=== PATIENT | male | born 1950 | race African-American/Black ===

== ENCOUNTER → 2016-03-24 | Outpatient (CLI) | payer OTHER ==
[~2016-03-24] MED LIST: AMLO-110 PO; AMOX875T PO; ASPI81TA28 PO; ATOR-22 PO; BND25 PO; DULO60CA44 PO; GABA800T PO; GUAI1TAB27 PO; HYDR2.5L TOP; ISOS30TA3 PO; LACT10SO30 PO; LEVO175T3 PO; MIRT30TA2 PO; MOML PO; MTH10 PO; PRLSR20 PO; TAMS0.4C38 PO; TOPI25TA99 PO
[2016-03-24 12:44] LABS: HEMATOCRIT 34.6 % (42-52); MEAN CELL VOLUME 92.5 fL (80-100); MEAN CORPUSCULAR HGB CONC 33.5 g/dl (32-36); MEAN PLATELET VOLUME 12.4 fL (7.4-10.4); PLATELET COUNT 302 K/uL (130-400); RED BLOOD COUNT 3.74 M/uL (4.7-6.1); WHITE BLOOD COUNT 10.47 K/uL (4.8-10.8)
== END | disposition home or self-care (01) ==
LOC: C.LABSPEC 11:49
PROVIDERS: ATTEND Family Medicine
DX: K92.2 Gastrointestinal hemorrhage, unspecified (principal)

== ENCOUNTER 2016-05-09 05:47 | Day surgery (SDC) | payer OTHER ==
[2016-05-02 14:27] VITALS: BMI 23.0; BMI 29.0
[~2016-05-09] VITALS: Ht 177.8 cm; Wt 91.8 kg
[~2016-05-09 05:47] MED LIST changes: -AMLO-110 PO; -LACT10SO30 PO; -MOML PO; -TOPI25TA99 PO
[2016-05-09] MEDS ORDERED: LACTATED RINGER'S 1000ML 1,000 ML IV SCH ×2 (06:00→08:54)
--- NOTE | 2016-05-09 06:13 | History & Physical Bridge Note ---
H&P Re-Evaluation Bridge Note: I have examined the patient, reviewed the History & Physical and in the interval since the performance of the History & Physical I have noted the following changes of clinical significance: No changes noted h and p up to date
[2016-05-09] MEDS ORDERED: LACT10SO30 PO (06:26)
[2016-05-09] MEDS ORDERED: MOML PO (06:26)
[2016-05-09 06:28] VITALS: BP 149/85; PULSE 71; TEMP 37.1; O2SAT 92; Ht 177.8 cm; Wt 91.8 kg
[2016-05-09] MEDS ORDERED: PROPOFOL IV EMULSION 10 MG/ML 20 ML VIAL IV ONE (06:44)
[2016-05-09] MEDS ORDERED: LIDOCAINE HCL 2% 2 ML VIAL (20MG/ML) ONE ×2 (06:44→08:47)
[2016-05-09] MEDS ORDERED: FENTANYL CITRATE INJ 50 MCG/1 ML 2 ML VIAL ONE (06:44)
[2016-05-09] MEDS ORDERED: MIDAZOLAM HCL 1 MG/ML 2ML VIAL ONE (06:44)
[2016-05-09] MEDS ORDERED: BACITRACIN 50000 UNIT VIAL ONE (06:53)
[2016-05-09] MEDS ORDERED: LIDOCAINE HCL 1% 20 ML VIAL ONE (06:53)
--- NOTE | 2016-05-09 07:41 | Discharge Instructions ---
Discharge Instructions Visit Reason for Visit: Colon Cancer Discharge Discharge Diagnosis / Problem: A-port placement Activity Recommendations Activity Limitations: as noted below Exercise/Sports Limitations: gradually increase as tolerated Shower/Bathe: tomorrow Anesthesia . Post Anesthesia Instructions: If you have had General Anesthesia or IV Sedation: * Do not drive today. * Resume driving when surgeon permits. * Do not make important decisions or sign legal documents today. * Call surgeon for: 1. Temperature elevations greater than 101 degrees F. 2. Uncontrollable pain. 3. Excessive bleeding. 4. Persistent nausea and vomiting. 5. Medication intolerance (nausea, vomiting or rash). * For nausea and vomiting use only clear liquids such as: tea, soda, bouillon until nausea subsides, then gradually increase diet as tolerated. * If you have any concerns or questions, call your surgeon's office. If physician is unavailable and it is an emergency, call 911 or go to the nearest emergency room. . Instructions / Follow-Up Instructions / Follow-Up Dr. Silverio's office as needed for any concerns about incision Diet Recommendations Recommended Home Diet: no limitations Pending Studies Studies pending at discharge: no Medical Emergencies . Who to Call and When: Medical Emergencies: If at any time you feel your situation is an emergency, please call 911 immediately. . Non-Emergent Contact Non-Emergency issues call your: Surgeon Call Non-Emergent contact if: you have a fever, temperature is above 101.5, wound has increased redness . . "Provider Documentation" section prepared by Carlos Santos.
[2016-05-09] MEDS ORDERED: CEFAZOLIN SOD 1 GM VIAL ONE (08:47)
[2016-05-09] MEDS ORDERED: MoRPHine SULFATE 2 MG/ML CARP IV PRN (09:00)
[2016-05-09] MEDS ORDERED: ONDANSETRON INJ 2 MG/ML 2 ML VIAL IV PRN ×2 (09:00→09:45)
[2016-05-09] MEDS ORDERED: HYDROCODONE/ACETAMOPHEN 5/325MG TAB PO PRN (09:00)
--- NOTE | 2016-05-09 09:39 | [facility] Post Operative Brief Note ---
Immediate Operative Summary Operative Date May 09, 2016. Pre-Operative Diagnosis Colon cancer Post-Operative Diagnosis Same Procedure(s) Performed Insertion infusaport right internal jugular(MRI compatible) Surgeon Dr Silverio [employer] Surgeon(s) 0 Estimated Blood Loss 15 ml Findings as preop Specimens none Anesthesia 1%xyl(8cc) and iv sedation
[2016-05-09] MEDS ORDERED: PROMETHAZINE HCL INJ 12.5 MG in SODIUM CHLORIDE 0.9% 50ML 50 ML IV PRN (09:45)
[2016-05-09] MEDS ORDERED: ATROPINE SULFATE 0.1 MG/ML 5ML SYR IV PRN (09:45)
[2016-05-09] MEDS ORDERED: FLUMAZENIL 0.1 MG/1 ML 10 ML VIAL IV PRN (09:45)
[2016-05-09] MEDS ORDERED: FENTANYL CITRATE INJ 50 MCG/1 ML 2 ML VIAL IV PRN (09:45)
[2016-05-09] MEDS ORDERED: EpHEDrine SULFATE INJ 50 MG/ML AMP IV PRN (09:45)
[2016-05-09] MEDS ORDERED: LABETALOL HCL IV 5 MG/ML 20ML IV PRN (09:45)
[2016-05-09] MEDS ORDERED: NALOXONE HCL 0.4 MG/1 ML VIAL/CARP IV PRN (09:45)
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
--- NOTE | 2016-05-09 10:09 | Anesthesiology Progress Note ---
Anesthesia Post Op Note Date & Time May 09, 2016 at 10:09 Vital Signs Pain Intensity: 5.0 Vital Signs Past 12 Hours Date Time Temp Pulse Resp B/P Pulse Ox O2 Delivery O2 Flow Rate FiO2 05/09/16 10:00 66 28 132/99 95 Mask 5 05/09/16 09:50 67 11 122/83 99 Mask 5 05/09/16 09:43 36.2 69 16 125/89 100 Mask 5 05/09/16 06:28 37.1 71 18 149/85 92 Room Air Notes Mental Status: alert / awake / arousable, participated in evaluation Pt Amnestic to Procedure: Yes Nausea / Vomiting: adequately controlled Pain: adequately controlled Airway Patency, RR, SpO2: stable & adequate BP & HR: stable & adequate Hydration State: stable & adequate Anesthetic Complications: no major complications apparent
[2016-05-09 10:35] VITALS: BP 133/93; PULSE 66; TEMP 36.5; O2SAT 93
[2016-05-09 11:05] VITALS: BP 156/92; PULSE 74; TEMP 36.2; O2SAT 94
--- NOTE | 2016-05-09 11:15 | OPERATIVE REPORT ---
DATE OF OPERATION: 05/09/2016 SURGEON: Dr. Silverio. PREOPERATIVE DIAGNOSIS: Colon cancer, need for chemotherapy. POSTOPERATIVE DIAGNOSIS: Same. PROCEDURE: MRI compatible port placement, left internal jugular. SUMMARY: The patient was brought into the operating room theatre. Left neck area and left chest were prepped with Betadine scrub solution and properly draped. The patient had a tattoo in the left anterior chest wall. We tried to stay away from it. We had some room underneath the clavicle to establish access of the vein and also place a port away from the tattoo. At this point, the patient was placed in Trendelenburg position and a roll placed underneath the shoulders. We tried to access the subclavian vein x2 without any success. Given the history of lymphomas and also previous use of drugs, I suspect that it may be sclerosed. Therefore, I went to the internal jugular. More local was used between the 2 heads of the sternocleidoid. We were able to access the internal jugular vein on the left without any difficulty, fluoroscopic positioning a guidewire in superior vena cava. After this had been performed, we made a counter incision probably an inch below this insertion site of the subclavian area away from the tattoo. Local anesthetic was used, deepened through subcutaneous tissue. We denuded the fat in the inferior area that created a pocket for the reservoir. Some bleeding was cauterized. At this point, I placed the tunneler from the internal jugular area access site to the port site, where the reservoir had been made after we enlarged the skin incision in the internal jugular. The trocar was positioned. Then, we placed the catheter to be ready to access into the 7-Tajik dilator. We positioned the dilator without any difficulty. Although, we met some little resistance as it went underneath the clavicle. As it had been performed, we then tried passing the catheter into the peel-away sheath then we were met with resistance. It seemed like there was some blockage almost shelter into the catheter into the 7-Tajik introducer. After multiple maneuvers re-applying guidewires and placing dilators under direct visualization, we were able then to peel away the sheath after we had the catheter in about 10 cm right at the skin edge almost and fluoroscopically, it went in without any problem superior vena cava. The peel-away sheath was removed. We then cut the catheter appropriately after it was in the superior vena cava right atrial area to place a black bolster. We brought the reservoir up in the field and connected and secured it in place with a black bolster. We aspirated and flushed initially. We visualized the system and the catheter appeared to be in the right atrium. We then placed in the previously made pocket, secured in place with the Prolene sutures. We then reimaged the system and the catheter appeared to be in the right atrium in good position. We closed the wound in multiple layers 2-0 and 3-0 Dexon and 4-0 Monocryl. Steri-Strips applied. Prior to leaving the room, we accessed the catheter percutaneously without any difficulty and flushed quite easily. Estimated blood loss for all this maneuver approximately 15 mL. I attest to the content of the Intraoperative Record and any orders documented therein. Any exceptio ns are noted below.
== END 2016-05-09 11:59 ==
LOC: C.ACU 05:47
PROVIDERS: ATTEND Surgery
DX: C88.4 Extranodal marginal zone B-cell lymphoma of mucosa-associated lymphoid tissue [MALT-lymphoma] (principal); J45.909 Unspecified asthma, uncomplicated; J44.9 Chronic obstructive pulmonary disease, unspecified; I10 Essential (primary) hypertension; N18.9 Chronic kidney disease, unspecified; Z85.72 Personal history of non-Hodgkin lymphomas; Z90.89 Acquired absence of other organs; Z98.890 Other specified postprocedural states; Z90.5 Acquired absence of kidney; Z68.29 Body mass index [BMI] 29.0-29.9, adult; Z86.19 Personal history of other infectious and parasitic diseases

== ENCOUNTER 2017-04-18 09:56 | Inpatient (IN) | payer OTHER ==
[2017-04-18] VITALS (17 sets, daily range): BP systolic 92–190; BP diastolic 46–105; PULSE 72–126; TEMP 36.5–38.2; O2SAT 93–100; BMI 30.1
[~2017-04-18] VITALS: Ht 177.8 cm; Wt 98.8 kg
[~2017-04-18 09:56] MED LIST changes: +AMLO-110 PO; +ATRINS NEB; -BND25 PO; +CETI10TA84 PO; +CICL160A INTNAS; +DIPH25CA5 PO; +ETOMIDATE 2 MG/ML 20 ML VIAL IV ONE; +FENTANYL CITRATE INJ 50 MCG/1 ML 2 ML VIAL IV ONE; +FLUT1INH PO; +FLUT27.53 INTNAS; +FNTTP50 TD; +FOLI1TAB8 PO; -GUAI1TAB27 PO; +GUAI400T44 PO; +HYZ/50125 PO; +LACT10SO30 PO; +METH750T PO; +MOML PO; +ONDA4TAB46 PO; +OXYC-88 PO; +POTA10CA28 PO; +SODIUM CHLORIDE 0.9% 10ML FLUSH IV ONE; +SUCCINYLCHOLINE CHLORIDE 20 MG/ML 10 ML VIAL IV ONE; +SUCR1TAB29 PO; +TEST1INJ2 SQ; +VECURONIUM BROMIDE 10 MG VIAL IV ONE
[2017-04-18] MEDS ORDERED: ACETAMINOPHEN 500 MG TAB PO ONE (10:08)
[2017-04-18] MEDS ORDERED: ALBUT/IPRATROP 3MG/0.5MG NEB 3 ML VIAL INH STA (10:09)
[2017-04-18] MEDS ORDERED: ACETAMINOPHEN 500 MG TAB PO STA (10:09)
[2017-04-18] MEDS ORDERED: PIPERACILLIN/TAZOBACTAM 4.5 GM/100ML D5W IV STA (10:11)
[2017-04-18] MEDS ORDERED: SODIUM CHLORIDE 0.9% 1000ML 500 ML IV ONE (10:11)
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
[2017-04-18 11:14] LABS: HEMATOCRIT 21.6 % (42-52); HEMOGLOBIN 6.3 g/dL (14.0-18.0); MEAN CELL VOLUME 75.5 fL (80-100); MEAN CORPUSCULAR HGB CONC 29.2 g/dl (32-36); MEAN PLATELET VOLUME 9.6 fL (7.4-10.4); NUCLEATED RED BLOOD CELL ABS 0.18 K/uL (0-0); PLATELET COUNT 283 K/uL (130-400); RED CELL DISTRIBUTION WIDTH SD 55.1 fL (36.4-46.3); WHITE BLOOD COUNT 8.13 K/uL (4.8-10.8)
[2017-04-18 11:17] LABS: INR 1.2 (0.9-1.1); PTT PATIENT 24.6 SECONDS (21.0-31.0)
[2017-04-18 11:27] LABS: BASO % 0.2 %; BASO ABS # 0.02 K/uL (0-0.2); EOS % 0.9 %; EOS ABS # 0.07 K/uL (0-0.5); IG# 0.02 K/uL (0.00-0.02); LYMPH % 4.3 %; LYMPH ABS # 0.35 K/uL (1.2-3.4); MONO % 0.9 %; MONO ABS # 0.07 K/uL (0.11-0.59); NEUT % 93.5 %
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
[2017-04-18 11:34] LABS: ALBUMIN 1.5 gm/dl (3.4-5.0); ALKALINE PHOSPHATASE 134 U/L (45-117); ALT/SGPT 10 U/L (12-78); AST/SGOT 15 U/L (15-37); BLOOD UREA NITROGEN 10 mg/dl (7-18); CARBON DIOXIDE 21 mmol/L (21-32); CREATININE 0.65 mg/dl (0.60-1.40); GLUCOSE 48 mg/dl (70-99); POTASSIUM 2.6 mmol/L (3.5-5.1); SODIUM 147 mmol/L (136-145); TOTAL PROTEIN 5.5 gm/dl (6.4-8.2)
[2017-04-18] MEDS ORDERED: DEXTROSE 50% 50 ML SYR IV STA (11:36)
[2017-04-18] MEDS ORDERED: DEXTROSE 50% 50 ML SYR ONE (11:37)
[2017-04-18] MEDS ORDERED: POTASSIUM CHLORIDE 10 MEQ / 100ML WTR IV STA (11:39)
[2017-04-18] MEDS ORDERED: POTASSIUM CHLR 10MEQ / WTR IV SCH (11:39)
[2017-04-18] MEDS ORDERED: MAGNESIUM SULFATE 1GM / D5W 1 GM BAG IV STA (11:39)
[2017-04-18] MEDS ORDERED: SODIUM CHLORIDE 0.9% 500ML 500 ML IV STA ×2 (11:42→12:26)
[2017-04-18 11:45] LABS: INFLUENZA B ANTIGEN Neg for Influ B (NEG)
[2017-04-18] MEDS ORDERED: PANTOprazole INJ 80 MG in DEXTROSE 5% 100ML IV ONE (12:00)
[2017-04-18] MEDS ORDERED: VANCOMYCIN CONSULT ACTIVE PRN (12:00)
[2017-04-18] MEDS ORDERED: ACYCLOVIR SOD INJ 800 MG in DEXTROSE 5% 250ML 250 ML IV STA (12:01)
[2017-04-18] MEDS ORDERED: NALOXONE HCL 0.4 MG/1 ML VIAL/CARP ONE ×3 (12:15→12:47)
[2017-04-18] MEDS ORDERED: VANCOMYCIN IV 2,000 MG in SODIUM CHLORIDE 0.9% 500ML 500 ML IV ONE (12:15)
[2017-04-18] MEDS ORDERED: NALOXONE HCL INJ 0.4 MG/1 ML VIAL/CARP IV STA (12:15)
[2017-04-18] MEDS ORDERED: ACYCLOVIR CONSULT ACTIVE PRN (12:30)
[2017-04-18] MEDS ORDERED: PIPERACILL/TAZOBAC CONSULT ACTIVE PRN ×2 (12:30→15:30)
[2017-04-18] MEDS ORDERED: ICU PROTOCOL FOR HYPERGLYCEMIA PRN (12:30)
[2017-04-18] MEDS ORDERED: OPTIRAY 320 IV PRN (13:00)
--- NOTE | 2017-04-18 13:22 | DIAGNOSTIC IMAGING REPORT ---
CT SCAN OF THE BRAIN WITHOUT IV CONTRAST CLINICAL HISTORY: Change in mental status. COMPARISON STUDY: No priors. TECHNIQUE: Unenhanced axial CT scan of the brain is performed from the vertex to the skull base. A dose lowering technique was utilized adhering to the principles of ALARA. The patient was scanned 4 times in an effort to improve image quality. The examination is severely compromised by motion artifact. FINDINGS: Brain parenchyma: There is mild periventricular microangiopathic disease. There is no hemorrhage, mass effect, or evidence of acute territorial ischemia by CT criteria. Nice-white matter is preserved. No extra-axial fluid collection is seen. Ventricles, sulci, cisterns: Normal in configuration. Intracranial vasculature: The visualized intracranial vasculature at the skull base is normal in appearance. Calvarium: Unremarkable. Sinuses and mastoids: There is evidence of previous paranasal sinus surgery. Moderate mucosal thickening is seen in the right maxillary antrum in the right sphenoid sinus. Mild mucosal thickening is seen within the right frontal sinus, ethmoid sinuses, and the left sphenoid sinuses. The mastoid air cells are well pneumatized. Orbits: The bony orbits are grossly intact. IMPRESSION: 1. No acute intracranial abnormality is identified noting a significantly motion compromised examination. 2. Paranasal sinus disease as above. Electronically signed by: Guevara Bryson M.D. 04/18/2017 1:21 PM Dictated Date/Time: 04/18/2017 1:18 PM
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
--- NOTE | 2017-04-18 13:35 | DIAGNOSTIC IMAGING REPORT ---
CT SCAN OF THE ABDOMEN AND PELVIS WITH IV CONTRAST CLINICAL HISTORY: Generalized abdominal pain. COMPARISON STUDY: No priors. TECHNIQUE: Following the IV administration of 118 cc of Optiray 320, CT scan of the abdomen and pelvis is performed from the lung bases to the proximal femora. Images are reviewed in the axial, sagittal, and coronal planes. IV contrast was administered without complication. A dose lowering technique was utilized adhering to the principles of ALARA. The examination is significantly degraded by motion artifact, as well as by streak artifact from the patient's arms which could not be elevated above the abdomen. FINDINGS: Lung bases: The heart is normal in size and without pericardial effusion. Small metallic foreign bodies are identified involving the heart. Emphysema is suspected. Airspace consolidation is present at the right lung base. A fat-containing Bochdalek hernia seen at the left lung base. Trace pleural effusions are suspected. There is a small to moderate hiatal hernia. Esophageal varices are identified. Liver: Evaluation of the liver is significantly by streak and motion artifact. The contrast-enhanced liver is grossly normal in size, contour, and attenuation. There is no intrahepatic biliary ductal dilatation. The hepatic veins and portal veins are patent. Gallbladder: Unremarkable. Spleen: A normal spleen is not identified. A 2.5 cm soft tissue nodule in the left upper quadrant image #141 likely represents a splenule. Additional splenules are suggested throughout the mesentery. Pancreas: Grossly unremarkable. Adrenal glands: Unremarkable. Kidneys: The contrast enhanced kidneys demonstrate mild cortical atrophy and are without hydronephrosis. A 2.7 cm cyst is identified in the interpolar right kidney. Metallic foreign bodies are noted in the region of the left splenic hilum. There is diminished perfusion suggested involving the upper pole of the left kidney. Abdominal vasculature: The abdominal aorta is normal in course and caliber noting mild to moderate atherosclerotic calcification. Bowel: There is moderate colonic fecal retention. No bowel obstruction is identified. A metallic density is suggested in the distal stomach on image #142. The appendix is not identified. Peritoneum: There is no intraperitoneal free air or abdominal ascites. Lymphadenopathy: None. Pelvic viscera: The bladder, prostate, and seminal vesicles are grossly normal as visualized. Skeletal structures: Degenerative change and mild scoliosis are noted throughout the imaged spine. No lytic or blastic lesions are seen. Soft tissues: Numerous metallic foreign bodies are present within the lower chest and upper abdominal wall. IMPRESSION: 1. Significantly streak and motion compromised examination. This degrades diagnostic utility. 2. A normal spleen is not identified. Numerous splenules are suggested in the left upper quadrant and throughout the abdomen. 3. There is diminished perfusion suggested involving the upper pole of the right kidney. This may artifactual. Correlation with clinical findings and urinalysis will be required. Consider follow-up with a renal ultrasound for further assessment. 4. Numerous metallic foreign bodies are present within the lower chest and upper abdomen. 5. Airspace consolidation is suggested at the right lung base. Correlate clinically for evidence of pneumonia. 6. Small to moderate hiatal hernia. Esophageal varices are noted. 7. Moderate constipation. No bowel obstruction is seen. 8. Additional findings as above. Electronically signed by: Guevara Bryson M.D. 04/18/2017 1:34 PM Dictated Date/Time: 04/18/2017 1:26 PM
[2017-04-18] MEDS ORDERED: NURSING VERBAL MED ORDER ONE ×2 (13:45→15:30)
[2017-04-18] MEDS ORDERED: NALOXONE HCL INJ 5 MG in SODIUM CHLORIDE 0.9% 100ML 100 ML IV SCH (13:51)
[2017-04-18] MEDS ORDERED: NALOXONE HCL 0.4 MG/1 ML VIAL/CARP IV ONE (13:55)
[2017-04-18] MEDS ORDERED: RAPID SEQUENCE INDUCTION BAG ONE ×2 (14:11→14:51)
[2017-04-18] MEDS: POTASSIUM CHLR 10 MEQ / WTR 10 MEQ in PREMIXED WATER 100 ML IV SCH ×4 (14:27→18:58)
[2017-04-18] MEDS ORDERED: OCTREOTIDE IV BOLUS & DRIP IV STA (14:35)
[2017-04-18] MEDS ORDERED: SUCCINYLCHOLINE CHLORIDE 20 MG/ML 10 ML VIAL IV STA (14:57)
[2017-04-18 14:59] LABS: INFLUENZA A PCR Neg for Influ A (NEG); INFLUENZA B PCR Neg for Influ B (NEG)
[2017-04-18] MEDS ORDERED: ETOMIDATE 2 MG/ML 20 ML VIAL IV ONE (15:00)
[2017-04-18] MEDS ORDERED: MIDAZOLAM 125MG/250ML D5W IV ONE (15:06)
[2017-04-18] MEDS ORDERED: D5W AND NSS 1,000 ML IV SCH (15:15)
--- NOTE | 2017-04-18 15:22 | History and Physical ---
History & Physical Date & Time of Service: Apr 18, 2017 ~ 12:00 Chief Complaint: Fever, Shortness of Breath Primary Care Physician: Nemo SANCHEZ History of Present Illness 67 year old male who was sent from [facility] after developing chills, fever, and shortness of breath. History is limited from patient due to his mental status. 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 Details are unknown. Apparently patient has been having a suspected slow GI bleed and down trending hemoglobins. He was scheduled for an outpatient blood transfusion today. Patient was transferred to the ED after developing fever, chills, and shortness of breath. He was found to be hypoxic, tachycardic, and hypotensive. His mental status also deteriorated and Narcan was given which briefly improved his mental status. CXR shows a multifocal pneumonia. Labs show anemia, hypoglycemia, and hypokalemia. Vitals improved with IVF and Bipap. 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 (7) GERD (gastroesophageal reflux disease) Status: Chronic (8) HLD (hyperlipidemia) Status: Chronic (9) HTN (hypertension) Status: Chronic (10) Hypothyroidism Status: Chronic (11) Malignant neoplasm of kidney Status: Chronic (12) Neuropathy Status: Chronic (13) PVD (peripheral vascular disease) Status: Chronic Family History unobtainable Social History Smoking Status: Unknown if Ever Smoked Alcohol Use: none Allergies Coded Allergies: YONNY Inhibitors (Verified Allergy, Intermediate, LIPS SWELL, 04/18/17) LISINIPRIL Ciprofloxacin (Verified Allergy, Mild, PER RECORD, 04/18/17) Home Medications Scheduled Amlodipine (Norvasc), 5 MG PO DAILY Aspirin (Aspirin Ec), 81 MG PO QAM Atorvastatin (Lipitor), 20 MG PO HS Cetirizine (Zyrtec), 10 MG PO DAILY Ciclesonide (Alvesco), 1 INHALER INTNAS DAILY Diphenhydramine Hcl (Benadryl), 25 MG PO HS Duloxetine Hcl (Cymbalta), 60 MG PO QAM Fentanyl (Duragesic), 100 MCG TD CQ72HR Fentanyl (Duragesic), 50 MCG TD CQ72HR Fluticasone Furoate (Flonase Sensimist), 2 SPRAYS INTNAS DAILY Fluticasone Furoate-Vilanterol (Breo Ellipta), 1 INHA PO DAILY Folic Acid (Folvite), 1 TAB PO DAILY Gabapentin (Neurontin), 800 MG PO BID Guaifenesin (Guaifenesin), 400 MG PO TID Hctz/Losartan (Hyzaar 12.5MG/50MG), 1 TAB PO DAILY Hctz/Losartan (Hyzaar 12.5MG/50MG), 1 TAB PO DAILY Ipratropium Calipatria (Ipratropium Calipatria), 1 VIAL NEB QID Isosorbide Mononitrate Ext Rel (Imdur Ext Rel), 3 TAB PO QAM Levothyroxine Sodium (Levothyroxine Sodium), 1 TAB PO QAM Methocarbamol (Robaxin), 1 TAB PO BID Mirtazapine Soltab (Remeron Soltab), 30 MG PO HS Omeprazole (Prilosec), 40 MG PO QAM Potassium Chloride (Micro-K Ext Rel), 10 MEQ PO DAILY Tamsulosin Hcl (Flomax), 0.4 MG PO HS Testosterone Cypionate (Testosterone Cypionate), 1 ML SQ DIRECTED Scheduled PRN Ondansetron Hcl (Zofran), 4 MG PO DIRECTED PRN for Nausea Oxycodone/Acetaminophen 10MG/325MG (Oxycodone/Acetaminophen 10MG/325MG), 1 TAB PO TID PRN for Pain Miscellaneous Medications Sucralfate (Carafate), 1 TAB PO Review of Systems unobtainable due to patient's mental status Physical Exam Vital Signs Date Time Temp Pulse Resp B/P (MAP) Pulse Ox O2 Delivery O2 Flow Rate FiO2 04/18/17 12:30 98 25 112/72 100 04/18/17 12:20 105 18 84/57 100 BiPAP 40 04/18/17 12:16 84/66 04/18/17 12:11 102 13 90 04/18/17 12:03 87/50 04/18/17 12:00 100 BiPAP 15.0 40 04/18/17 12:00 82/57 04/18/17 11:56 111 19 93 04/18/17 11:41 107 17 95 04/18/17 11:35 36.8 04/18/17 11:32 96/52 04/18/17 11:30 87/51 04/18/17 11:26 112 11 98 04/18/17 11:11 119 17 96 04/18/17 11:00 95/62 04/18/17 10:56 121 22 97 04/18/17 10:41 123 19 93 04/18/17 10:30 109/75 04/18/17 10:29 122 94 40 04/18/17 10:29 122 22 94 BiPAP/CPAP 40 04/18/17 10:26 124 23 95 04/18/17 10:24 142 04/18/17 10:15 95 Non-Rebreather 15.0 04/18/17 10:08 37.5 130 26 143/88 74 Room Air 04/18/17 10:04 143/88 General Appearance: WD/WN, + pertinent finding (on Bipap, minimally responsive) Eyes: + pertinent finding (pin point pupils) ENT: + pertinent finding (dry mucous membranes) Neck: supple, no JVD, trachea midline Respiratory/Chest: no respiratory distress, + decreased breath sounds, + pertinent finding (on Bipap) Cardiovascular: no edema, normal peripheral pulses, + tachycardia (regular rhythm) Abdomen/GI: normal bowel sounds, non tender, soft, no organomegaly Extremities/Musculoskelatal: normal inspection, no calf tenderness, normal capillary refill Neurologic/Psych: + pertinent finding (minimally responsive to loud verbal and tactile stimuli) Skin: normal color, warm/dry Diagnostics Laboratory Results Results Past 24 Hours Test 04/18/17 10:50 04/18/17 10:57 04/18/17 12:24 04/18/17 13:20 Range/Units White Blood Count 8.13 4.8-10.8 K/uL Red Blood Count 2.86 4.7-6.1 M/uL Hemoglobin 6.3 14.0-18.0 g/dL Hematocrit 21.6 42-52 % Mean Corpuscular Volume 75.5 80-100 fL Mean Corpuscular Hemoglobin 22.0 25-34 pg Mean Corpuscular Hemoglobin Concent 29.2 32-36 g/dl Platelet Count 283 130-400 K/uL Mean Platelet Volume 9.6 7.4-10.4 fL Neutrophils (%) (Auto) 93.5 % Lymphocytes (%) (Auto) 4.3 % Monocytes (%) (Auto) 0.9 % Eosinophils (%) (Auto) 0.9 % Basophils (%) (Auto) 0.2 % Neutrophils # (Auto) 7.60 1.4-6.5 K/uL Lymphocytes # (Auto) 0.35 1.2-3.4 K/uL Monocytes # (Auto) 0.07 0.11-0.59 K/uL Eosinophils # (Auto) 0.07 0-0.5 K/uL Basophils # (Auto) 0.02 0-0.2 K/uL RDW Standard Deviation 55.1 36.4-46.3 fL RDW Coefficient of Variation 20.0 11.5-14.5 % Immature Granulocyte % (Auto) 0.2 % Immature Granulocyte # (Auto) 0.02 0.00-0.02 K/uL Nucleated RBC Absolute Count (auto) 0.18 0-0 K/uL Nucleated Red Blood Cells % 2.2 % Toxic Granulation 1+ Toxic Vacuolation 1+ Giant Platelets 2+ Hypochromasia PRESENT Anisocytosis PRESENT Microcytosis PRESENT Target Cells 1+ Prothrombin Time 12.2 9.0-12.0 SECONDS Prothromb Time International Ratio 1.2 0.9-1.1 Activated Partial Thromboplast Time 24.6 21.0-31.0 SECONDS Partial Thromboplastin Ratio 0.9 Sodium Level 147 136-145 mmol/L Potassium Level 2.6 3.5-5.1 mmol/L Chloride Level 118 98-107 mmol/L Carbon Dioxide Level 21 21-32 mmol/L Anion Gap 7.0 3-11 mmol/L Blood Urea Nitrogen 10 7-18 mg/dl Creatinine 0.65 0.60-1.40 mg/dl Est Creatinine Clear Calc Drug Dose 131.1 ml/min Estimated GFR () 118.3 Estimated GFR (Non- 102.1 BUN/Creatinine Ratio 14.7 10-20 Random Glucose 48 70-99 mg/dl Calcium Level 6.0 8.5-10.1 mg/dl Magnesium Level 1.4 1.8-2.4 mg/dl Total Bilirubin 0.4 0.2-1 mg/dl Aspartate Amino Transf (AST/SGOT) 15 15-37 U/L Alanine Aminotransferase (ALT/SGPT) 10 12-78 U/L Alkaline Phosphatase 134 45-117 U/L Troponin I < 0.015 0-0.045 ng/ml Total Protein 5.5 6.4-8.2 gm/dl Albumin 1.5 3.4-5.0 gm/dl Globulin 4.0 2.5-4.0 gm/dl Albumin/Globulin Ratio 0.4 0.9-2 Thyroid Stimulating Hormone (TSH) 0.605 0.300-4.500 uIu/ml Thyroxine (T4) 9.4 4.5-10.9 mcg/dl Random Cortisol 18.46 mcg/dl Influenza Type A Antigen Neg for Influ A NEG Influenza Type B Antigen Neg for Influ B NEG Bedside Lactic Acid Venous 1.84 0.90-1.70 mmol/L Arterial Blood pH 7.36 7.35-7.45 Arterial Blood Partial Pressure CO2 47 35-46 mmHg Arterial Blood Partial Pressure O2 175 80-95 mm/Hg Arterial Blood HCO3 26 19-24 mmol/L Arterial Blood Oxygen Saturation 96.0 90-95 % Arterial Blood Base Excess 0.2 -9-1.8 mEq/L Arterial Blood Gas Delivery 40% BIPAP Shan Test POS POS Bedside Glucose 61 70-99 mg/dl Microbiology Results 04/18/17 Blood Culture, Received Pending 04/18/17 Blood Culture, Received Pending Diagnostic Radiology CXR IMPRESSION: 1. Cardiomegaly 2. Diffuse elevation of the interstitium, and bibasilar opacities. Although interstitial edema and bibasilar atelectasis is favored, a multifocal pneumonia could appear similar. Clinical and radiographic follow-up is recommended CT HEAD IMPRESSION: 1. No acute intracranial abnormality is identified noting a significantly motion compromised examination. 2. Paranasal sinus disease as above. CT ABD/PELVIS IMPRESSION: 1. Significantly streak and motion compromised examination. This degrades diagnostic utility. 2. A normal spleen is not identified. Numerous splenules are suggested in the left upper quadrant and throughout the abdomen. 3. There is diminished perfusion suggested involving the upper pole of the right kidney. This may artifactual. Correlation with clinical findings and urinalysis will be required. Consider follow-up with a renal ultrasound for further assessment. 4. Numerous metallic foreign bodies are present within the lower chest and upper abdomen. 5. Airspace consolidation is suggested at the right lung base. Correlate clinically for evidence of pneumonia. 6. Small to moderate hiatal hernia. Esophageal varices are noted. 7. Moderate constipation. No bowel obstruction is seen. 8. Additional findings as above. CT CHEST IMPRESSION: 1. Dependent consolidation in the lungs could represent aspiration or atelectasis. The presence of coarse calcification dependently in the right lower lobe and the absence of significant volume loss favors aspiration, which may be chronic. 2. Motion artifact degrades evaluation. Impression Assessment and Plan ACUTE HYPOXIC RESPIRATORY FAILURE PNEUMONIA, POSSIBLE ASPIRATION SEPSIS ALTERED MENTAL STATUS - admit to ICU - management as per car customizer - broad spectrum antibiotics - rapid flu negative, will check PCR - BP improving after IVF - vega cultures - ? metabolic encephalopathy from sepsis vs. narcotic overdose from fentanyl patches ANEMIA - ? due to underlying lymphoma vs. GI bleed - noted esophageal varices on CT scan - transfuse PRBCs HYPOGLYCEMIA - improved with D50 - monitor closely HX MALT LYMPHOMA OF STOMACH, RENAL CARCINOMA - obtain outpatient records CAD - holding antihypertensives due to hypotension DVT PROPHYLAXIS - SCDs due to anemia / GI bleed DISPO - In my clinical judgment this beneficiary meets acute admission criteria, established by [facility], that includes being hospitalized through two midnights. ADDENDUM: This is a 67 year old male with a PMH of MALT lymphoma, renal cell carcinoma, asthma, HTN, hypothyroidism, BPH - [facility]. Was sent from the [facility] to the ER due to lethargy, fever, acute hypoxic respiratory failure with decreased O2 saturation. He presented to the ED and was very lethargic, altered mental status, and low O2 - was placed on bipap. Noted to have hypoglycemia and hypotension episodes in the ED. Labs were drawn and his Hgb was down to 6.3. He had fentanyl patches on his chest; Narcan was given in the ED and there was some improved mentation and response. Acute Hypoxic Respiratory Failure Plan is to send the patient to the ICU. Likely will need to be intubated. Possible bronchoscopy as per car customizer. Sepsis secondary to Multifocal, possible Aspiration, Pneumonia +fevers, +hypotension, +tachypnea will start triple antibiotics, Zosyn, Azithromycin, Vancomycin monitor blood pressure, monitor vitals should repeat CXR in 1-2 days IVFs (D5 + NS) Metabolic Encephalopathy possibly secondary to opioid overdose patient with Fentanyl patches and takes oxycodone for breakthrough was given Narcan with some response initially started on Narcan ggt now off of the drip Anemia possibly secondary to lymphoma/malignancy vs. acute GI bleed patient hypotensive, though that can be secondary to the infectious process as above CT of the abdomen suggests possible esophageal varices - plan for now is to start a PPI drip and an octreotide drip. GI consulted for further input. Hypoglycemia unsure of why patient is hypoglycemic? does not take any diabetic medications prior to arrival to the [facility], had good PO intake possibly related to lymphoma? either way, given D50 in the ED maintenance fluids with D5 and NS Hypokalemia/Hypomagnesemia replace K, given at least 40mEq of K riders monitor potassium replace Mg as well Advanced Directives Existing Living Will: No Existing Power of Field [employer] Farmworker: No VTE Prophylaxis VTE Risk Assessment Done? Y/N: Yes Risk Level: Moderate
[2017-04-18] MEDS ORDERED: OCTREOTIDE BOLUS FROM BAG IV ONE (15:30)
--- NOTE | 2017-04-18 15:37 | Progress Note ---
Progress Note Date of Service Apr 18, 2017. (Estela Garay CRNP) Progress Note GI note: Received consult from Dr. Calabrese for this pt, for reasons of anemia, esophageal varices, possible EGD evaluation. Chart reviewed. Pt is a 67 year old male inmate who was at [facility] getting blood transfusion for chronic anemia. He started to develop fever, chills, SOB, BP was low at 80s/60s, tachycardic w HR of 122, hypoxic to 70s% on RA. He has hx of MALT lymphoma of the stomach and renal carcinoma. Uses Fentanyl patch for chronic pain. He was sent to ED. Upon eval, labs showed Hgb of 6.3, it was 11 a year ago but I was told by report that Hgb runs in 8s. Records from long-term not obtained yet. No signs of active GI bleed including melena, hematemesis. K 2.6, Na 147, BS 48. He was given Narcan gtt, NS bolus, and started on BiPAP. BP and O2 level improved. He had CT abd/pelvis: 1. Significantly streak and motion compromised examination. This degrades diagnostic utility. 2. A normal spleen is not identified. Numerous splenules are suggested in the left upper quadrant and throughout the abdomen. 3. There is diminished perfusion suggested involving the upper pole of the right kidney. This may artifactual. Correlation with clinical findings and urinalysis will be required. Consider follow-up with a renal ultrasound for further assessment. 4. Numerous metallic foreign bodies are present within the lower chest and upper abdomen. 5. Airspace consolidation is suggested at the right lung base. Correlate clinically for evidence of pneumonia. 6. Small to moderate hiatal hernia. Esophageal varices are noted. 7. Moderate constipation. No bowel obstruction is seen. Chest CT showed dependent consolidation, favoring aspiration. I discussed the case with Dr. Godfrey and developed the following plans which were relayed to Dr. Calabrese: - Keep NPO - PPI bolus and gtt - OK to continue Octreotide bolus and gtt - Plan for EGD evaluation tomorrow - Recommend obtaining abdominal duplex to r/o splenic vein thrombosis which can cause varices development. - Pls obtain records from the long-term including previous labs for comparison and previous endoscopic evals records if available. (Estela Garay CRNP) I have seen and examined the patien ton 04/18 with JONATHAN Graf whose note reflects our findings and plan. (Sahra Godfrey, DO)
[2017-04-18] MEDS ORDERED: VECURONIUM BROMIDE 10 MG VIAL IV ONE (15:45)
[2017-04-18] MEDS ORDERED: FENTANYL CITRATE INJ 50 MCG/1 ML 2 ML VIAL IV ONE (15:45)
[2017-04-18] MEDS: OCTREOTIDE ACETATE INJ 500 MCG in NSS 100ML IV SCH (16:07)
[2017-04-18] MEDS: PANTOprazole INJ 40 MG in DEXTROSE 5% 100ML IV SCH ×2 (16:07→20:51)
--- NOTE | 2017-04-18 16:30 | DIAGNOSTIC IMAGING REPORT ---
SINGLE VIEW CHEST CLINICAL HISTORY: Respiratory failure. Intubation. FINDINGS: An AP, portable, semierect chest radiograph is compared to chest x-ray and chest CT performed earlier the same day 04/18/2017. The examination is significantly degraded by portable technique and patient rotation. An enteric tube has been placed. This projects below the diaphragm. An endotracheal tube has been placed. The tip projects above the thoracic inlet approximately 11 cm above the scott. A left internal jugular central venous infusion port is unchanged in position. A right PICC line is been placed. The tip projects over the right atrium. The heart is top normal for projection. There is atherosclerotic calcification of the thoracic aorta. Pulmonary vascular congestion is suspected. Emphysema and chronic interstitial thickening are similar to previous. Bibasilar consolidative change is identified. No large pleural effusion or pneumothorax is seen. The skeletal structures are osteopenic. The bony thorax is grossly intact. Numerous metallic foreign bodies project over the left lower chest. IMPRESSION: 1. An endotracheal tube has been placed. This projects above the thoracic inlet approximately 11 cm above the scott. 2. A right PICC line is been placed. The tip projects over the right atrium. 3. An enteric tube is been placed and extends below the diaphragm. 4. Bibasilar consolidation is observed. Correlate clinically for evidence of pneumonia/aspiration pneumonitis. 5. Numerous metallic foreign bodies project over the left lower chest. 6. Emphysema. 7. Suspect pulmonary vascular congestion. Clinical correlation will be required. Electronically signed by: Guevara Bryson M.D. 04/18/2017 4:28 PM Dictated Date/Time: 04/18/2017 4:25 PM
--- NOTE | 2017-04-18 16:33 | DIAGNOSTIC IMAGING REPORT ---
KUB CLINICAL HISTORY: Enteric tube placement. FINDINGS: An AP, portable, supine abdominal radiograph is correlated with abdominal CT performed the same day 04/18/2017. An enteric tube has been placed. The tip projects below the diaphragm over the mid stomach. There is no radiographic evidence of bowel obstruction. Suture material is noted in the abdominal midline. Numerous metallic foreign bodies project over the left upper quadrant lower chest. Mild consolidative change is suggested at the lung bases. IV catheters project over the right heart. The visualized bony structures are grossly intact. IMPRESSION: 1. An enteric tube has been placed. The tip projects below the diaphragm over the mid stomach. 2. There is no evidence of bowel obstruction. Electronically signed by: Guevara Bryson M.D. 04/18/2017 4:32 PM Dictated Date/Time: 04/18/2017 4:30 PM
[2017-04-18] MEDS: PIPERACILL/TAZOBAC IV 4.5 GM in DEXTROSE 5% 100ML IV SCH (16:48)
[2017-04-18] MEDS ORDERED: MIDAZOLAM 125MG/250ML D5W 250 ML IV PRN (19:02)
[2017-04-18] MEDS: AZITHROMYCIN 500 MG / D5W 250 ML IV SCH ×2 (20:51)
[2017-04-18] MEDS ORDERED: PANTOprazole INJ 40 MG in SYRINGE 0 ML IV SCH (21:00)
[2017-04-18] MEDS: DEXTROSE 5% IV SCH (21:55)
[2017-04-18] MEDS: ACYCLOVIR SOD IV SCH (21:55)
[2017-04-18 22:27] LABS: HEMATOCRIT 26.4 % (42-52); HEMOGLOBIN 7.7 g/dL (14.0-18.0)
[2017-04-18 22:57] LABS: HEMATOCRIT 27.2 % (42-52); RETIC COUNT % 1.7 % (0.5-2.0)
[2017-04-18 23:24] LABS: CALCIUM 7.3 mg/dl (8.5-10.1); CREATININE 1.09 mg/dl (0.60-1.40); PHOSPHORUS 2.5 mg/dl (2.5-4.9)
--- NOTE | 2017-04-18 23:27 | Procedure Note ---
Procedure Note Date of Service Apr 18, 2017. Procedure Note Procedure date: 04/18/2017 Procedure: fiberoptic bronchoscopy Pre-procedure Diagnosis: Respiratory failure, sepsis Post-procedure Diagnosis: same as above Prior to Procedure: Informed Consent: The risks, benefits, indications, potential complications, and alternatives were explained to the patient/family and informed consent obtained. Patient was unable to sign and verbal consent was obtained Attending Staff: Serena Holder DO Resident/APC: Not applicable Skin Prep: Not applicable Anesthesia: Patient was receiving continuous infusion of propofol for sedation to facilitate mechanical ventilation Indications: Skinny is a 67-year-old male with a history of cancer, acute blood loss anemia, febrile illness concerning for sepsis. The identity of the patient was confirmed and a bedside time out was performed. Description of Procedure: Fiberoptic bronchoscopy was performed via endotracheal tube. Bronchioalveolar lavage right middle lobe was performed. Findings included: Thin clear secretions, structural and dynamic changes consistent with COPD Complications: None Specimens: Bronchial washings sent for culture and Gram stain, cytology, fungal elements, and AFB stain and culture. Estimated blood loss: Zero
[2017-04-18] MEDS ORDERED: INSULIN IV INFUSION PROTOCOL STA (23:28)
[2017-04-18] MEDS ORDERED: INSULIN PROTOCOL GOAL RANGE ONE (23:30)
[2017-04-18] MEDS ORDERED: SEVERE STRESS LEVEL ONE (23:30)
--- NOTE | 2017-04-18 23:33 | Critical Care Consultation ---
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 Findings included: Thin clear secretions, structural and dynamic changes consistent with COPD * washings sent for culture, gram stain, cytology, fungal, and AFB stain and culture * Begin respiratory regimen via inhaler during intubation * Head of bed at 30* * AM CXR and ABG Neuro: * Pt sedated on Versed and Fentanyl * Currently RASS -4, titrate to goal RASS -2 * Altered mental status multifactorial, continue to work up * Possible Opioid overdose with fentanyl patches in place on arrival and known break through pain relief with Percocet * Head CT negative for acute process * Unlikely metabolic process given labs and abg. * Reassess mental status again once extubated * Holding home medications that could contribute to mental status changes * Remeron, Neurontin, Benadryl, etc CV: * Troponin negative on admission * EKG without signs of ischemia, pt denied chest pain to prior providers * NPO: Hold home medications * ASA, atorvastatin, Norvasc (borderline blood pressure), hctz/losartan, Imdur * While holding combination ARB/diuretic will hold K; monitor electrolytes * Blood pressures currently adequate, but borderline (95/58 Map 67) Monitor on telemetry Fluids/Renal: * D5NSS at 100; will convert to NSS at 100mL/hr secondary to elevated blood sugars > 300 * electrolyte disturbances * Hyponatremia, hypokalemia, hypomagnesemia * Trend and replete per protocol * Sanchez in place: adequat urine output though concentrated * U/A demonstrates UTI: See ID * Cr: 0.65 on arrival repeat 1.09 * monitor for JAMISON, Continue fluids as above ID: * Continue acyclovir, azithromycin, zosyn and vanco * Gram Negative Bacilli in 1/2 blood cultures * Repeat cultures 24 hours after current cultures * Bronchial Washings pending * UTI: culture pending * febrile at 04/18 @ 1200 * Without leukocytosis * Lactic acid 1.84; repeat with a.m. labs GI/Nutrition: * OG tube in place, NPO * GI following for chronic slow GI bleed * Continue Octreotide and protonix infusion * EGD planned tomorrow * trend H&H q 8h, transfuse if less than 7 * abnormal LFTs and coags * repeat lab in AM Heme: * Hemoglobin 6.3 on admission, Hemoccult positive * Trend q8h * 2u PRBCs transfuse 04/18, repeat H&H 8.0/27.2 * SCD for DVT prophylaxis: Chemical prophylaxis contraindicated in GI bleed Endocrine: * No diagnosis of DM, hypoglycemic on arrival, then hyperglycemic on D5NSS * Began insulin infusion per policy and converted fluids to NSS @ 100mL/hr * Know hypothyroidism, convert PO to IV * TSH and T4 WNL CCT: 60 Minutes; This time is exclusive of all separately billable procedures. Thank you for involving us in the care of this patient. Please refer to Dr. Darvin Holder's addendum for further recommendations. I have personally evaluated and examined this patient. I agree with assessment and plan of Ramírez Bolton PA-C. Patient was initially evaluated by me. At that time in the emergency department he had waxing and waning mental status. He did exhibits capacity when I explained the risks and benefits regarding central line, bronchoscopy, orotracheal intubation, blood transfusion, PICC line, arterial line. He was comfortable proceeding with all procedures with the exception of central line. I did explain the risks and of benefits of a central line over PICC line however the patient remained resolute. The patient was generally weak and attempted to sign the first consent form. He did not want to finish signing the other consent forms and verbal consent was obviously obtained, as well as witnessed. The patient's mental status continued to wane to a point that I felt it was safer to have the patient intubated. Please see the intubation note. I reviewed prior records from [facility] as well as a correctional institution. It is clear that he has had cancer however I cannot determine if he is undergoing active chemotherapy or immunotherapy at this time. I am concerned the patient may have sepsis in addition to acute blood loss anemia, variceal hemorrhage is included in the differential, we have consult to gastroenterology service. I have personally spent 45 minutes of critical care time in the direct management of this patient. This is a life/limb threatening event. This includes time spent evaluating patient, direct bedside care, chart review, placing orders, interpretation of diagnostic studies, discussion with consultants, patient, and/or family members regarding treatment decisions, as well as other required patient management activities. This time is exclusive of all separately billable procedures, and teaching time and separate from and in addition to any other critical care service time. Problem Qualifiers (1) Pneumonia: Laterality: bilateral
[2017-04-18] MEDS ORDERED: GLUCAGON FOR INJ 1 MG VIAL SQ PRN (23:45)
[2017-04-18] MEDS ORDERED: DEXTROSE 50% 50 ML SYR IV PRN (23:45)
[2017-04-18] MEDS ORDERED: INSULIN REGULAR 250 UNITS in SODIUM CHLORIDE 0.9% 250ML 250 ML IV SCH (23:45)
[2017-04-18] MEDS ORDERED: NovoLIN R BOLUS FROM BAG IV ONE (23:45)
[2017-04-18] MEDS ORDERED: GLUCOSE 40% GEL 15 GM TUBE PO PRN (23:45)
[2017-04-18] MEDS ORDERED: GLUCOSE 10 TABS/TUBE PO PRN (23:45)
[2017-04-19] VITALS (29 sets, daily range): BP systolic 95–159; BP diastolic 51–93; PULSE 63–122; TEMP 36.5–37.6; O2SAT 87–100; Ht 177.8 cm; Wt 98.8 kg
[2017-04-19] MEDS: PIPERACILL/TAZOBAC IV 4.5 GM in DEXTROSE 5% 100ML IV SCH ×4 (00:34→23:38)
[2017-04-19] MEDS: OCTREOTIDE ACETATE INJ 500 MCG in NSS 100ML IV SCH ×3 (00:34→23:38)
[2017-04-19 00:39] LABS: POTASSIUM 4.3 mmol/L (3.5-5.1)
--- NOTE | 2017-04-19 01:20 | Procedure Note ---
Procedure Note Date of Service 04/18/2017 Procedure Note Procedure Date: April 18, 2017 Procedure: Endotracheal intubation Pre-procedure Diagnosis: Hypoxic respiratory failure Post-procedure Diagnosis: same as above Prior to Procedure: Informed Consent: emergent , verbal informed consent had been obtained Attending Staff: Serena Holder DO Indications: Patient is a 67-year-old male with impending respiratory failure secondary to acute hypoxemia The identity of the patient was confirmed and a bedside time out was performed. Description of Procedure: Patient was evaluated and required intubation for impending respiratory failure. The patient was prepared in the usual fashion. A MAC 3 laryngoscope was used initially; however, I was not able to reach the posterior pharynx. I converted to a Mac 4 and was able to achieve a grade 3 view; however, there was significant thick tenacious oral secretions covering the glottic opening that required suctioning. I converted to a glide scope to attempt to achieve a better view. With a glide scope I was unable to visualize the glottic opening adequately and converted back to a Mac 4. Again a grade 3 view was obtained endotracheal tube was passed cuff inflated. 8.5 Fr endotrachial tube was placed to 24 cm at the teeth. The endotracheal tube was not noted to pass through the vocal cords. Chest rise was bilateral. Bilateral breath sounds were heard without air sounds in the abdomen. Mist was noted in the endotracheal tube. End-tidal CO2 measurement was positive. Chest x-ray shows proper endotracheal tube placement. Complications: Patient desaturated to the low 90s for approximately 2-3 minutes during the entire intubation process. Patient had extremely dry mucous membranes and there appeared to be a superficial split of the left lower lip. Bleeding was controlled with gentle pressure. Findings: not applicable Specimens: not applicable Estimated blood loss: Trace
[2017-04-19] MEDS ORDERED: IPRATROPIUM BROMIDE HFA INHALER INH ONE (01:56)
[2017-04-19] MEDS ORDERED: ALBUTEROL HFA 8 GM INHALER INH ONE (01:56)
[2017-04-19] MEDS: PANTOprazole INJ 40 MG in DEXTROSE 5% 100ML IV SCH ×5 (02:19→22:22)
[2017-04-19] MEDS ORDERED: NURSING VERBAL MED ORDER ONE ×2 (02:30→14:45)
[2017-04-19] MEDS ORDERED: VANCOMYCIN IV 1,500 MG in SODIUM CHLORIDE 0.9% 500ML 500 ML IV SCH ×2 (03:00→17:00)
[2017-04-19] MEDS ORDERED: SODIUM CHLORIDE 0.9% 1000ML 1,000 ML IV SCH (03:00)
[2017-04-19 06:02] LABS: INR 1.2 (0.9-1.1); PTT PATIENT 29.2 SECONDS (21.0-31.0)
[2017-04-19 06:13] LABS: HEMOGLOBIN 8.8 g/dL (14.0-18.0); MEAN CELL VOLUME 77.9 fL (80-100); MEAN CORPUSCULAR HEMOGLOBIN 22.9 pg (25-34); MEAN CORPUSCULAR HGB CONC 29.3 g/dl (32-36); MEAN PLATELET VOLUME 10.1 fL (7.4-10.4); NUCLEATED RED BLOOD CELL ABS 0.24 K/uL (0-0); PLATELET COUNT 319 K/uL (130-400); RED CELL DISTRIBUTION WIDTH CV 19.7 % (11.5-14.5); RED CELL DISTRIBUTION WIDTH SD 55.8 fL (36.4-46.3); WHITE BLOOD COUNT 32.28 K/uL (4.8-10.8)
[2017-04-19 06:22] LABS: ALBUMIN 1.8 gm/dl (3.4-5.0); CALCIUM 7.4 mg/dl (8.5-10.1); CREATININE 1.01 mg/dl (0.60-1.40); POTASSIUM 4.1 mmol/L (3.5-5.1)
[2017-04-19] MEDS: DEXTROSE 5% IV SCH ×3 (06:23→22:22)
[2017-04-19] MEDS: ACYCLOVIR SOD IV SCH ×3 (06:23→22:22)
[2017-04-19 06:27] LABS: PHOSPHORUS 2.6 mg/dl (2.5-4.9); TOTAL PROTEIN 7.3 gm/dl (6.4-8.2)
--- NOTE | 2017-04-19 06:38 | DIAGNOSTIC IMAGING REPORT ---
EXAMINATION: RENAL ULTRASOUND CLINICAL HISTORY: right upper pole lesion ABNORMAL CT SCAN COMPARISON STUDY: CT scan dated 04/18/2017 FINDINGS: The right kidney measures 13 cm. The left kidney measures 11.7 cm. There is no evidence of hydronephrosis. There is a 26 mm mid pole right renal cyst. There is a 3 cm soft tissue nodule located adjacent the left kidney. This could represent a splenule. There is a 15 mm lower pole left renal cyst. There is a Sanchez catheter present within the bladder. IMPRESSION : 1. Bilateral renal cysts 2. No evidence of hydronephrosis Electronically signed by: Hal Hernandez M.D. 04/19/2017 6:37 AM Dictated Date/Time: 04/19/2017 6:34 AM
--- NOTE | 2017-04-19 06:46 | DIAGNOSTIC IMAGING REPORT ---
VENOUS DOPPLER LWR EXT BILA CLINICAL HISTORY: 67 years-old Male presenting with hypoxia active cancer. TECHNIQUE: Real-time grayscale and color and spectral Doppler ultrasound imaging of the veins of the bilateral lower extremities was performed. Compression and augmentation were also utilized. COMPARISON: None. FINDINGS: Right: Common femoral vein: Patent. Greater saphenous vein: Patent. Deep femoral vein: Patent. Femoral vein: Patent. Popliteal vein: Patent. Calf veins: Limited visualization secondary to subcutaneous edema. Left: Common femoral vein: Patent. Greater saphenous vein: Patent. Deep femoral vein: Patent. Femoral vein: Patent. Popliteal vein: Patent. Calf veins: Limited visualization secondary to subcutaneous edema. Other: None. IMPRESSION: No evidence of deep venous thrombosis. Electronically signed by: Dada Rahman M.D. 04/19/2017 6:44 AM Dictated Date/Time: 04/19/2017 6:43 AM
[2017-04-19 06:59] LABS: BASO % 0.2 %; BASO ABS # 0.06 K/uL (0-0.2); EOS % 0.8 %; EOS ABS # 0.26 K/uL (0-0.5); IG# 0.16 K/uL (0.00-0.02); LYMPH % 10.3 %; LYMPH ABS # 3.33 K/uL (1.2-3.4); MONO % 12.7 %; NEUT % 75.5 %; NEUT ABS # 24.37 K/uL (1.4-6.5)
--- NOTE | 2017-04-19 07:29 | DIAGNOSTIC IMAGING REPORT ---
DUPLEX ABD/PELV/RETRO COMP CLINICAL HISTORY: 67 years-old Male presenting with eval for spenic vein thrombus. TECHNIQUE: Real-time grayscale and color and spectral Doppler ultrasound imaging of the mesenteric veins was performed with specific attention to the splenic vein. COMPARISON: CT from 04/18/2017. FINDINGS: Main portal vein: Patent with normal antegrade flow. Peak velocity approximately 15 cm/s. Splenic vein: Patent in the distal portion near the portal confluence. The proximal and midportion do not demonstrate color Doppler flow and may be occluded. Peak velocity in the patent portion approximately 20 cm/s. IMPRESSION: 1. Splenic vein near the portal confluence is patent. The proximal to midportion towards the splenic hilum is not clearly patent. However, the patient has a history of splenectomy, and these findings are not unexpected. Electronically signed by: Dada Rahman M.D. 04/19/2017 7:27 AM Dictated Date/Time: 04/19/2017 7:08 AM
[2017-04-19] MEDS ORDERED: INSULIN ASPART 100 UNITS/ML 3 ML PEN SC SCH (08:00)
[2017-04-19] MEDS ORDERED: IPRATROPIUM BROMIDE HFA INHALER INH SCH ×2 (09:00→20:00)
[2017-04-19] MEDS ORDERED: LEVOTHYROXINE SODIUM 20 MCG/1 ML IV SCH (09:00)
[2017-04-19] MEDS ORDERED: ALBUTEROL HFA 8 GM INHALER INH SCH ×2 (09:00→20:00)
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
[2017-04-19] MEDS: NORMOSOL R 1,000 ML IV SCH ×2 (09:11→20:26)
[2017-04-19] MEDS: LEVOTHYROXINE SODIUM IV SCH (09:28)
[2017-04-19] MEDS ORDERED: FENTANYL CITRATE INJ 50 MCG/1 ML 2 ML VIAL ONE (10:59)
[2017-04-19] MEDS: PROPOFOL IV EMULSION 10 MG/ML 100 ML VIAL IV PRN (11:20)
[2017-04-19] MEDS ORDERED: POTASSIUM CHLR 10MEQ / WTR IV SCH (11:39)
--- NOTE | 2017-04-19 11:59 | Pharmacy Progress Note ---
Pharmacy Abx Dose Short Note Date of Service Apr 19, 2017. Assessment & Plan Assessment 67 year old male receiving vancomycin,zosyn,acyclovir, and azithromycin empirically. The patient's respiratory status declined further yesterday and was subsequently intubated. Pertinent microbiologic results thus far include a positive MRSA nasal swab and gram negative bacilli growing in both the urine and 1/2 BC. Of note the patient's WBC drastically increased. Serum creatinine also bumped from 0.65 to 1.09 to 1.01 in ~24 hours. It is noted that there is some decrease in UOP today. Given the patient's clinical status and considering the multiple medications that may affect or are affected by renal function, I will continue to monitor antimicrobials closely and adjust as needed. I will also reduce the frequency at which the vancomycin is administered and check a level in the morning. Day # 2 of antimicrobial therapy. Plan Vancomycin * Change to 1500 mg IV every 14 hours (from 1500mg Q10h) * Goal trough level for : 15 to 20 mcg/mL * Trough or random level ordered for: 04/20/17 @0630 * Zosyn * Continue at 4.5mg q8h Acyclovir * Continue at 725 mg IV q8h (~10mg/kg based on IBW) Pharmacy will continue to follow and will adjust dose/frequency as necessary. Thank you.
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
[2017-04-19 12:47] LABS: HEMOGLOBIN 9.2 g/dL (14.0-18.0)
[2017-04-19] MEDS: FENTANYL 1250MCG/250ML NSS 250 ML IV PRN (13:09)
[2017-04-19] MEDS ORDERED: FENTANYL BOLUS FROM BAG IV ONE (14:00)
--- NOTE | 2017-04-19 15:20 | ECHOCARDIOGRAM REPORT ---
*NOTICE TO RECEIVING CONSTITUTION PARTY AGENCY This information is strictly Confidential and protected under [place] law. [place] law prohibits you from making any further disclosure of this information unless further disclosure is expressly permitted by the written consent of the person to whom it pertains or is authorized by law. A general authorization for the release of medical or other information is not sufficient for this purpose. Hospital accepts no responsibility if the information is made available to any other person, INCLUDING THE PATIENT. Interpretation Summary * Name: DHRUV ULRICH [id number] Study Date: 04/19/2017 12:01 PM BP: 104/64 mmHg * Patient Location: .MSICU\S\E103\S\1 HR: 69 * : 1950 (M/d/yyy) Gender: Male Height: 70 in * Age: 67 yrs Ethnicity: AA Weight: 217 lb * Ordering Physician: Guevara Anderson * Referring Physician: Self, Referred * Performed By: Jailene Lam RDCS * * Reason For Study: ARDS, Respiratory Failure * BSA: 2.2 m2 * -- Conclusions -- * 1. Normal LV size, borderline concentric LVH. * 2. Normal LV systolic function. LVEF 55-60%. Abnormal septal motion consistent with RV volume overload. * 3. Mildly dilated RV and RA. Normal RV function. * 4. Aortic valve sclerosis with discrete nodular thickening of the right coronary cusp. * 5. Mild pulmonary hypertension. Est PASP 40-45 mmHg. Dilated IVC. Est RA 15 mmHg. * 6. Trivial pericardial effusion. * 7. No prior studies for comparison. Procedure Details * A complete two-dimensional transthoracic echocardiogram was performed (2D, M-mode, Doppler and color flow Doppler). Left Ventricle * The left ventricle is grossly normal size. * There is borderline concentric left ventricular hypertrophy. * Ejection Fraction = 55-60%. * Paradoxical septal motion is consistent with right ventricular volume overload. Right Ventricle * The right ventricle is mildly dilated. * The right ventricular systolic function is normal as assessed by tricuspid annular plane systolic excursion (TAPSE) (normal >1.5 cm). Atria * The left atrial size is normal. * The right atrium is mildly dilated. * No ASD detected; PFO is not assessed. Mitral Valve * The mitral valve is grossly normal. * Mitral stenosis is absent. * There is trace mitral regurgitation. Tricuspid Valve * The tricuspid valve is not well visualized, but is grossly normal. * There is trace tricuspid regurgitation. * Right ventricular systolic pressure is elevated at 40-50mmHg. Aortic Valve * Aortic valve sclerosis mild, without significant aortic valvular stenosis. * There is discrete nodular thickening of the right coronary cusp. * The aortic valve is trileaflet. * No hemodynamically significant valvular aortic stenosis. * There is no significant aortic regurgitation. Pulmonic Valve * The pulmonary valve is inadequately visualized, but the Doppler data is adequate for interpretation. * Pulmonic stenosis is absent. * Trace pulmonic valvular regurgitation. Great Vessels * The aortic root and proximal ascending aorta are normal sized. Pericardium/Pleural * Trace pericardial effusion Great Vessels * Dilated inferior vena cava with reduced collapsability with sniff indicates an elevated right atrial pressure of 15 mmHg MMode 2D Measurements and Calculations IVSd 0.96 cm IVSs 1.3 cm LVIDd 5.7 cm LVIDs 3.7 cm LVPWd 1.1 cm LVPWs 1.7 cm IVS/LVPW 0.90 FS 35.5 % EDV(Teich) 162.7 ml ESV(Teich) 58.3 ml EF(Teich) 64.2 % EDV(cubed) 189.2 ml ESV(cubed) 50.8 ml EF(cubed) 73.1 % % IVS thick 32.6 % % LVPW thick 60.7 % LV mass(C)d 233.8 grams LV mass(C)dI 108.2 grams/m\S\2 LV mass(C)s 208.4 grams LV mass(C)sI 96.4 grams/m\S\2 SV(Teich) 104.4 ml SI(Teich) 48.3 ml/m\S\2 SV(cubed) 138.4 ml SI(cubed) 64.0 ml/m\S\2 Ao root diam 4.1 cm Ao root area 12.9 cm\S\2 ACS 2.2 cm LA dimension 4.1 cm LA/Ao 1.0 LVAd ap4 32.7 cm\S\2 LVLd ap4 8.6 cm EDV(MOD-sp4) 108.1 ml EDV(sp4-el) 106.0 ml LVAs ap4 18.6 cm\S\2 LVLs ap4 7.0 cm ESV(MOD-sp4) 42.5 ml ESV(sp4-el) 41.8 ml EF(MOD-sp4) 60.7 % EF(sp4-el) 60.6 % LVAd ap2 32.1 cm\S\2 LVLd ap2 8.9 cm EDV(MOD-sp2) 106.4 ml EDV(sp2-el) 98.5 ml LVAs ap2 19.3 cm\S\2 LVLs ap2 6.9 cm ESV(MOD-sp2) 47.1 ml ESV(sp2-el) 45.8 ml EF(MOD-sp2) 55.8 % EF(sp2-el) 53.6 % LVLd %diff 3.7 % EDV(MOD-bp) 108.4 ml LVLs %diff -1.52 % ESV(MOD-bp) 44.6 ml EF(MOD-bp) 58.8 % SV(MOD-sp4) 65.6 ml SI(MOD-sp4) 30.4 ml/m\S\2 SV(MOD-sp2) 59.4 ml SI(MOD-sp2) 27.5 ml/m\S\2 SV(MOD-bp) 63.7 ml SI(MOD-bp) 29.5 ml/m\S\2 SV(sp4-el) 64.2 ml SI(sp4-el) 29.7 ml/m\S\2 SV(sp2-el) 52.8 ml SI(sp2-el) 24.4 ml/m\S\2 Doppler Measurements and Calculations MV E max alexey 86.1 cm/sec MV A max alexey 75.9 cm/sec MV E/A 1.1 MV dec time 0.23 sec Ao V2 max 130.1 cm/sec Ao max PG 6.8 mmHg Ao max PG (full) 2.5 mmHg LV V1 max PG 4.3 mmHg LV V1 max 103.4 cm/sec PA V2 max 97.1 cm/sec PA max PG 3.8 mmHg PI max alexey 144.1 cm/sec PI max PG 8.3 mmHg PI dec slope 236.2 cm/sec\S\2 PI P1/2t 178.6 msec TR max alexey 255.2 cm/sec
--- NOTE | 2017-04-19 16:04 | Procedure Note ---
Procedure Note Date of Service Apr 19, 2017. Procedure Note Procedure Date: 04/19/2017 Procedure: Indirect laryngoscopy with endotracheal tube exchanger Pre-procedure Diagnosis: Migration of the endotracheal tube possible commercial drone pilot balloon failure Post-procedure Diagnosis: Migration of the endotracheal tube Prior to Procedure: Informed Consent: emergent Attending Staff: Serena Holder DO Indications: Patient is 67-year-old male who appears to have lost the integrity of his commercial drone pilot balloon and/or possibly had migration of the endotracheal tube out of the airway. The identity of the patient was confirmed and a bedside time out was performed. Description of Procedure: A XtremIO endotracheal tube exchanger was inserted into the endotracheal tube and advanced the patient did produce a small cough. Next the chloride scope was inserted into the oropharynx. Under indirect video visualization the old endotracheal tube was removed. The tube exchanger was visualized passing through the vocal cords. An 8.5 endotracheal tube was then inserted over the endotracheal tube and directly visualized passing through the vocal cords by the glidescope. Tube was secured at a distance of 27 cm to the teeth Complications: None Findings: not applicable Specimens: not applicable Estimated blood loss: Zero
--- NOTE | 2017-04-19 16:09 | Procedure Note ---
Procedure Note Date of Service Apr 19, 2017. Procedure Note Procedure date: 04/19/2017 Procedure: fiberoptic bronchoscopy Pre-procedure Diagnosis: Recent endotracheal tube exchange, confirmation of endotracheal tube positioning, possible mucous plugging Post-procedure Diagnosis: same as above Prior to Procedure: Informed Consent: The risks, benefits, indications, potential complications, and alternatives were explained to the patient/family and informed consent obtained. Attending Staff: Serena Holder DO Resident/APC: Not applicable Skin Prep: Not applicable Anesthesia: Intravenous Versed had been being administered for facilitation of mechanical ventilation Indications: Patient is a 67-year-old male who had migration of his endotracheal tube and required confirmation of the tubes exact location. Additionally the distance which the endotracheal tube required insertion did not appear to correlate with appropriate positioning. Nursing staff also reported suctioning thick secretions from the endotracheal tube. The identity of the patient was confirmed and a bedside time out was performed. Description of Procedure: Fiberoptic bronchoscopy was performed via endotracheal tube. Bronchioalveolar lavage was not performed. Findings included : Minimal clear secretions. The endotracheal tube terminated at 2 cm above the scott. Complications: None Specimens: None Estimated blood loss: Zero Findings: The endotracheal tube is appropriately positioned. Initial secretions from the endotracheal tube were likely from the endotracheal tube migrating and supraglottic secretions being suctioned. There was no mucopurulence noted in the airways
--- NOTE | 2017-04-19 16:16 | Procedure Note ---
Procedure Note Procedure Date Apr 19, 2017. Procedure Description Procedure Name: Left radial arterial line Procedure time out: side/site verified, patient ID confirmed, correct procedure Consent obtained: verbal Time of procedure: 11:30 Performed by: attending Indications: diagnostic Contraindications: none Description: Patient's wrist was prepped with chlorhexidine and draped in sterile fashion. 1 mL of 1% lidocaine with epinephrine was used to anesthetize the area. Of 20- gauge arrow catheter was inserted into the left radial artery under dynamic ultrasound guidance. The arterial line was secured with a commercial securement device sterile dressing was applied. Complications: none Patient tolerated procedure: well Post-procedure vital signs: reviewed and stable Comments: Critical Care Medicine Point of Care Bedside Ultrasound Procedure: Procedural Ultrasound Procedure Date: 04/19/2017 Indication: Left radial arterial line placement Attending: Serena Holder DO Artery visualized: Y Guidewire or Short Catheter seen in vein: Y Impression: Successful left radial artery cannulation Images obtained are saved for permanent record
[2017-04-19] MEDS ORDERED: ICU ELECTROLYTE REPLACEMENT PROTOCOL PRN (16:30)
--- NOTE | 2017-04-19 16:34 | Critical Care Progress Note ---
Critical Care Progress Note Date of Service Apr 19, 2017. ICU Day ICU Day Number: [address] Holder Subjective No overnight events, patient intubated and sedated Objective General - intubated and sedated Eyes - pupils pin point and unresponsive, no icterus, ENT - Mucosa moist, no lesions or candidiasis, ET tube in place Neck - Supple, trachea midline, no masses or lymphadenopathy, no JVD Lungs -coarse breath sounds bilaterally Heart - Reg rate and rhythm, No murmur, rubs, clicks, or gallops appreciated Abdomen -no organomegaly Extremities - No edema, pedal pulses intact Neuro - Rass -4 Assessment & Plan Neuro: * Pt sedated on Versed and Fentanyl * Titrate to goal RASS -2 * Altered mental status multifactorial * Head CT negative for acute process Resp: * Assist Control: 16/550/5/80% * Acute respiratory distress syndrome * P/F ratio 130 * Bronchial washings no growth to date * ARDSnet, high PEEP flow FiO2 table * AM CXR and ABG CV: * Echo report reviewed summary: EF 55-60%, aortic valve sclerosis with discrete nodular thickening of the right coronary cusp Fluids/Renal: * Discontinue dextrose-containing solutions convert to a normal sought 75 ML's per hour * Electrolytes improved * Sanchez in place: adequat urine output though concentrated * U/A: Gram-negative bacilli ID: * Continue acyclovir, azithromycin, zosyn and vanco * Gram Negative Bacilli in 1/2 blood cultures * Repeat cultures 24 hours after current cultures * Bronchial Washings pending * UTI: Gram-negative bacilli * WBC: 32,000 GI/Nutrition: * OG tube in place, NPO * GI D furring EGD today possibly tomorrow * Continue Octreotide and protonix infusion * EGD planned tomorrow * trend H&H q 8h, transfuse if less than 7 Heme: * Hemoglobin improved * 2u PRBCs transfuse 04/18, Endocrine: * Hypoglycemic episodes resolved, discontinued dextrose-containing solutions * Know hypothyroidism, convert PO to IV * TSH and T4 WNL I have personally spent 70 minutes of critical care time in the direct management of this patient. This is a life/limb threatening event. This includes time spent evaluating patient, direct bedside care, chart review, placing orders, interpretation of diagnostic studies, discussion with consultants, patient, and/or family members regarding treatment decisions, as well as other required patient management activities. This time is exclusive of all separately billable procedures, and teaching time and separate from and in addition to any other critical care service time. Data Medications: Current Inpatient Medications Medications (Trade) Dose Ordered Sig/Glenn Route Start Time Stop Time Status Last Admin Dose Admin Miscellaneous Information (Consult) 1 ea UD PRN N/A 04/18/17 12:00 05/18/17 11:59 Miscellaneous Information (Consult) 1 ea UD PRN N/A 04/18/17 12:30 05/18/17 12:29 Acyclovir Sodium (Consult) 1 ea UD PRN N/A 04/18/17 12:30 05/18/17 12:29 Miscellaneous Information (Icu Protocol For Hyperglycemia) 1 ea PRN PRN N/A 04/18/17 12:30 04/20/17 12:29 Ioversol (Optiray 320) 125 ml UD PRN IV 04/18/17 13:00 04/22/17 12:59 Azithromycin 500 mg/Dextrose 255 ml @ 127.5 mls/ hr Q24H IV 04/18/17 21:00 04/25/17 20:59 04/18/17 20:51 127.5 MLS/HR Propofol (Diprivan Iv Emulsion 100ml Vial) 1 dose UD PRN IV 04/18/17 15:09 04/21/17 15:08 04/19/17 11:20 1 DOSE Fentanyl Citrate 250 ml @ 0 mls/hr Q0M PRN IV 04/18/17 15:00 05/02/17 14:59 04/19/17 13:09 10 MLS/HR Pantoprazole Sodium 40 mg/ Dextrose 100 ml @ 20 mls/hr Q5H IV 04/18/17 16:00 05/18/17 15:59 04/19/17 12:07 20 MLS/HR Octreotide Acetate 500 mcg/ Sodium Chloride 105 ml @ 10 mls/hr [id number] IV 04/18/17 15:31 05/18/17 15:30 04/19/17 12:06 10 MLS/HR Piperacillin Sod/ Tazobactam Sod 4.5 gm/Dextrose 120 ml @ 30 mls/hr Q8H IV 04/18/17 16:00 04/25/17 15:59 04/19/17 09:08 30 MLS/HR Acyclovir Sodium 725 mg/Dextrose 114.5 ml @ 100 mls/hr Q8H IV 04/18/17 22:00 04/25/17 21:59 04/19/17 14:23 100 MLS/HR Midazolam HCl 250 ml @ 0 mls/hr Q0M PRN IV 04/18/17 19:02 05/18/17 19:01 Glucose (Glucose 40% Gel) 15-30 GRAMS 15 GRAMS... UD PRN PO 04/18/17 23:45 05/18/17 23:44 Glucose (Glucose Chew Tab) 4-8 Tablets 4 Tabl... UD PRN PO 04/18/17 23:45 05/18/17 23:44 Dextrose (Dextrose 50% 50ML Syringe) 25-50ML OF 50% DW IV FOR... UD PRN IV 04/18/17 23:45 05/18/17 23:44 04/19/17 06:37 25 ML Glucagon (Glucagon Inj) 1 mg UD PRN SQ 04/18/17 23:45 05/18/17 23:44 Albuterol (Ventolin Hfa Inhaler) 1 puffs QID INH 04/19/17 09:00 05/19/17 08:59 Ipratropium [place] (Atrovent Hfa Inhaler) 1 puffs QID INH 04/19/17 09:00 05/19/17 08:59 Parenteral Electrolyte Solution 1,000 ml @ 100 mls/hr Q10H IV 04/19/17 09:00 05/19/17 08:59 04/19/17 09:11 100 MLS/HR Levothyroxine Sodium 90 mcg/ Syringe 4.5 ml @ 2 mls/min DAILY@09 IV 04/19/17 09:00 05/19/17 08:59 04/19/17 09:28 2 MLS/MIN Vancomycin HCl 1500 mg/Sodium Chloride 530 ml @ 200 mls/hr Q14H IV 04/19/17 17:00 04/26/17 16:59 I & O: 24-Hour Column 04/20/17 08:00 Intake Total 1463 ml Output Total 375 ml Balance 1088 ml Vital Signs: Date Time Temp Pulse Resp B/P (MAP) Pulse Ox O2 Delivery O2 Flow Rate FiO2 04/19/17 14:00 76 15 153/67 (95) 94 Mechanical Ventilator 60 04/19/17 13:00 75 16 146/65 (92) 94 Mechanical Ventilator 60 04/19/17 12:00 Mechanical Ventilator 100 04/19/17 12:00 100 04/19/17 12:00 36.8 77 16 120/51 (74) 97 Mechanical Ventilator 100 04/19/17 11:59 77 16 103/64 (77) 97 Mechanical Ventilator 100 04/19/17 11:50 60 04/19/17 11:20 100 04/19/17 11:20 84 16 101/60 (74) 98 Mechanical Ventilator 100 04/19/17 11:16 92 16 123/76 (92) 95 Mechanical Ventilator 100 04/19/17 11:13 122 16 115/73 (87) 99 Mechanical Ventilator 100 04/19/17 11:00 80 16 116/68 (84) 98 Mechanical Ventilator 100 04/19/17 10:00 73 16 141/78 (99) 99 Mechanical Ventilator 100 04/19/17 09:00 37.0 78 16 127/78 (94) 95 Mechanical Ventilator 100 04/19/17 08:00 70 16 115/72 (86) 98 Mechanical Ventilator 100 04/19/17 08:00 100 04/19/17 08:00 Mechanical Ventilator 100 04/19/17 08:00 Mechanical Ventilator 100 04/19/17 07:05 100 04/19/17 07:00 72 16 111/68 (82) 98 Mechanical Ventilator 100 04/19/17 06:00 69 16 104/64 (77) 98 Mechanical Ventilator 100 04/19/17 05:00 68 16 117/73 (88) 100 04/19/17 04:17 100 04/19/17 04:00 Mechanical Ventilator 100 04/19/17 04:00 36.5 66 16 109/67 (81) 95 Mechanical Ventilator 100 04/19/17 04:00 100 04/19/17 03:00 63 16 114/70 (85) 98 04/19/17 02:00 68 16 95/58 (70) 98 Mechanical Ventilator 80 04/19/17 01:11 100 04/19/17 01:00 71 16 104/64 (77) 99 Mechanical Ventilator 100 04/19/17 00:14 100 04/19/17 00:00 36.5 73 16 117/78 (91) 87 Mechanical Ventilator 80 04/18/17 23:59 Mechanical Ventilator 80 04/18/17 23:59 80 04/18/17 22:07 90 04/18/17 22:00 73 16 105/67 (80) 100 Mechanical Ventilator 90 04/18/17 20:00 36.5 82 16 105/62 (76) 100 Mechanical Ventilator 90 04/18/17 20:00 100 04/18/17 20:00 96 Mechanical Ventilator 90 04/18/17 19:55 36.6 72 16 100/60 95 04/18/17 19:25 36.6 87 16 106/61 97 04/18/17 19:10 36.7 88 16 106/60 99 04/18/17 19:00 100 04/18/17 18:40 36.9 91 16 107/59 99 04/18/17 18:10 36.9 93 16 106/59 99 04/18/17 18:00 37.0 95 16 106/59 (75) 98 Mechanical Ventilator 100 04/18/17 17:40 37.0 96 16 106/55 98 04/18/17 17:25 37.2 95 16 92/46 95 04/18/17 16:35 100 Laboratory Results: Last 24 Hours Test 04/18/17 17:59 04/18/17 20:48 04/18/17 22:18 04/18/17 22:42 Bedside Glucose 117 mg/dl Stool Occult Blood POSITIVE Hemoglobin 7.7 g/dL 8.0 g/dL Hematocrit 26.4 % 27.2 % Absolute Reticulocyte Count 0.06 10^6/uL Percent Reticulocyte Count 1.7 % Sodium Level 132 mmol/L Potassium Level 4.3 mmol/L Chloride Level 101 mmol/L Carbon Dioxide Level 25 mmol/L Anion Gap 6.0 mmol/L Blood Urea Nitrogen 10 mg/dl Creatinine 1.09 mg/dl Est Creatinine Clear Calc Drug Dose 78.2 ml/min Estimated GFR () 82.1 Estimated GFR (Non- 70.9 BUN/Creatinine Ratio 9.0 Random Glucose 359 mg/dl Calcium Level 7.3 mg/dl Phosphorus Level 2.5 mg/dl Magnesium Level 2.1 mg/dl Beta-Hydroxybutyric Acid 1.34 mg/dL Test 04/19/17 01:11 04/19/17 02:12 2/1/18 03:18 04/19/17 04:21 Bedside Glucose 179 mg/dl 191 mg/dl 123 mg/dl 113 mg/dl Test 04/19/17 05:11 04/19/17 05:37 04/19/17 06:24 04/19/17 06:53 Bedside Glucose 97 mg/dl 79 mg/dl 104 mg/dl White Blood Count 32.28 K/uL Red Blood Count 3.85 M/uL Hemoglobin 8.8 g/dL Hematocrit 30.0 % Mean Corpuscular Volume 77.9 fL Mean Corpuscular Hemoglobin 22.9 pg Mean Corpuscular Hemoglobin Concent 29.3 g/dl Platelet Count 319 K/uL Mean Platelet Volume 10.1 fL Neutrophils (%) (Auto) 75.5 % Lymphocytes (%) (Auto) 10.3 % Monocytes (%) (Auto) 12.7 % Eosinophils (%) (Auto) 0.8 % Basophils (%) (Auto) 0.2 % Neutrophils # (Auto) 24.37 K/uL Lymphocytes # (Auto) 3.33 K/uL Monocytes # (Auto) 4.10 K/uL Eosinophils # (Auto) 0.26 K/uL Basophils # (Auto) 0.06 K/uL RDW Standard Deviation 55.8 fL RDW Coefficient of Variation 19.7 % Immature Granulocyte % (Auto) 0.5 % Immature Granulocyte # (Auto) 0.16 K/uL Nucleated RBC Absolute Count (auto) 0.24 K/uL Nucleated Red Blood Cells % 0.7 % Toxic Granulation 1+ Toxic Vacuolation 2+ Polychromasia 1+ Anisocytosis PRESENT Spherocytes 1+ Target Cells 2+ Doss-Tyrone Bodies 1+ Prothrombin Time 12.8 SECONDS Prothromb Time International Ratio 1.2 Activated Partial Thromboplast Time 29.2 SECONDS Partial Thromboplastin Ratio 1.1 Sodium Level 137 mmol/L Potassium Level 4.1 mmol/L Chloride Level 106 mmol/L Carbon Dioxide Level 28 mmol/L Anion Gap 3.0 mmol/L Blood Urea Nitrogen 13 mg/dl Creatinine 1.01 mg/dl Est Creatinine Clear Calc Drug Dose 84.4 ml/min Estimated GFR () 90.0 Estimated GFR (Non- 77.7 BUN/Creatinine Ratio 12.4 Random Glucose 80 mg/dl Lactic Acid Level 0.6 mmol/L Calcium Level 7.4 mg/dl Phosphorus Level 2.6 mg/dl Magnesium Level 2.2 mg/dl Total Bilirubin 0.7 mg/dl Direct Bilirubin 0.4 mg/dl Aspartate Amino Transf (AST/SGOT) 22 U/L Alanine Aminotransferase (ALT/SGPT) 14 U/L Alkaline Phosphatase 137 U/L Troponin I 0.034 ng/ml Total Protein 7.3 gm/dl Albumin 1.8 gm/dl Test 04/19/17 07:13 04/19/17 07:28 04/19/17 08:17 04/19/17 12:36 Bedside Glucose 92 mg/dl 94 mg/dl 86 mg/dl Hemoglobin 9.2 g/dL Hematocrit 30.0 % Test 04/19/17 12:43 Blood Gas Sample Site Art Line Bedside Blood Gas pH (LAB) 7.23 Bedside Blood Gas pCO2 (LAB) 62 mmHg Bedside Blood Gas pO2 (LAB) 78 mmHg Bedside Blood Gas HCO3 (LAB) 26 meq/L Bedside Blood Gas Total CO2 28 mEq/l Bedside Blood Gas Base Excess (LAB) -1.0 meq/L Bedside Blood Gas O2 Saturation 93.0 % Shan Test NA Oxygen Delivery Device Ventilator Bedside Oxygen Rate (breaths/min) 16 Blood Gas Minute Ventilation 7.5 Bedside FiO2 60 % Blood Gas Tidal Volume 450 Blood Gas PEEP 12
--- NOTE | 2017-04-19 17:55 | Progress Note ---
Internal Med Progress Note Date of Service: Apr 19, 2017. Provider Documentation: SUBJECTIVE: s/p intubation afebrile hemodynamics stable OBJECTIVE: Vital Signs-as noted below Exam: General-s/p intubation. Neck-no neck masses Lungs-cta b/l no wheezing or crackles Heart-S1 and S2 heard regular rate and rhythm, no murmurs Abdomen-soft bowel sounds present no distension Extremities-no edema no erythema Neuro-s/p intubation Lab data as noted below. ASSESSMENT & PLAN: ACUTE HYPOXIC RESPIRATORY FAILURE Vent dependent respiratory failure PNEUMONIA, POSSIBLE ASPIRATION SEPSIS ALTERED MENTAL STATUS Bacteremia UTI metabolic encephalopathy from sepsis vs. narcotic overdose from fentanyl patches s/p intubation on iv vancomycin, iv zosyn, iv azithromycin, iv acyclovir Gm negative bacilli in blood and urine s/p bronchoscopy management as per critical care ANEMIA - ? due to underlying lymphoma vs. GI bleed noted esophageal varices on CT scan on Sandostatin drip GI on board presented with hb 6.3 s/p two units prbc hb 9.2 now will monitor HYPOGLYCEMIA improved with D50 -currently on parental nutrition HX MALT LYMPHOMA OF STOMACH, RENAL CARCINOMA to obtain outpatient records CAD holding antihypertensives due to hypotension DVT PROPHYLAXIS SCDs due to anemia / GI bleed DISPOSITION close monitor in ICU Vital Signs: Date Time Temp Pulse Resp B/P (MAP) Pulse Ox O2 Delivery O2 Flow Rate FiO2 04/19/17 17:00 78 17 156/64 (94) 95 Mechanical Ventilator 60 04/19/17 16:00 100 04/19/17 16:00 Mechanical Ventilator 100 04/19/17 16:00 37.6 83 19 159/77 (104) 99 Mechanical Ventilator 60 04/19/17 15:51 75 16 124/72 (89) 98 Mechanical Ventilator 60 04/19/17 15:00 76 16 148/66 (93) 97 Mechanical Ventilator 60 04/19/17 14:22 60 04/19/17 14:00 76 15 153/67 (95) 94 Mechanical Ventilator 60 04/19/17 13:00 75 16 146/65 (92) 94 Mechanical Ventilator 60 04/19/17 12:00 Mechanical Ventilator 100 04/19/17 12:00 100 04/19/17 12:00 36.8 77 16 120/51 (74) 97 Mechanical Ventilator 100 04/19/17 11:59 77 16 103/64 (77) 97 Mechanical Ventilator 100 04/19/17 11:50 60 04/19/17 11:20 100 04/19/17 11:20 84 16 101/60 (74) 98 Mechanical Ventilator 100 04/19/17 11:16 92 16 123/76 (92) 95 Mechanical Ventilator 100 04/19/17 11:13 122 16 115/73 (87) 99 Mechanical Ventilator 100 04/19/17 11:00 80 16 116/68 (84) 98 Mechanical Ventilator 100 04/19/17 10:00 73 16 141/78 (99) 99 Mechanical Ventilator 100 04/19/17 09:00 37.0 78 16 127/78 (94) 95 Mechanical Ventilator 100 04/19/17 08:00 70 16 115/72 (86) 98 Mechanical Ventilator 100 04/19/17 08:00 100 04/19/17 08:00 Mechanical Ventilator 100 04/19/17 08:00 Mechanical Ventilator 100 04/19/17 07:05 100 04/19/17 07:00 72 16 111/68 (82) 98 Mechanical Ventilator 100 04/19/17 06:00 69 16 104/64 (77) 98 Mechanical Ventilator 100 04/19/17 05:00 68 16 117/73 (88) 100 04/19/17 04:17 100 04/19/17 04:00 Mechanical Ventilator 100 04/19/17 04:00 36.5 66 16 109/67 (81) 95 Mechanical Ventilator 100 04/19/17 04:00 100 04/19/17 03:00 63 16 114/70 (85) 98 04/19/17 02:00 68 16 95/58 (70) 98 Mechanical Ventilator 80 04/19/17 01:11 100 04/19/17 01:00 71 16 104/64 (77) 99 Mechanical Ventilator 100 04/19/17 00:14 100 04/19/17 00:00 36.5 73 16 117/78 (91) 87 Mechanical Ventilator 80 04/18/17 23:59 Mechanical Ventilator 80 04/18/17 23:59 80 04/18/17 22:07 90 04/18/17 22:00 73 16 105/67 (80) 100 Mechanical Ventilator 90 04/18/17 20:00 36.5 82 16 105/62 (76) 100 Mechanical Ventilator 90 04/18/17 20:00 100 04/18/17 20:00 96 Mechanical Ventilator 90 04/18/17 19:55 36.6 72 16 100/60 95 04/18/17 19:25 36.6 87 16 106/61 97 04/18/17 19:10 36.7 88 16 106/60 99 04/18/17 19:00 100 04/18/17 18:40 36.9 91 16 107/59 99 04/18/17 18:10 36.9 93 16 106/59 99 04/18/17 18:00 37.0 95 16 106/59 (75) 98 Mechanical Ventilator 100 Lab Results: Results Past 24 Hours Test 04/18/17 17:59 04/18/17 20:48 04/18/17 22:18 04/18/17 22:42 Range/Units Bedside Glucose 117 70-99 mg/dl Stool Occult Blood POSITIVE NEGATIVE Hemoglobin 7.7 8.0 14.0-18.0 g/dL Hematocrit 26.4 27.2 42-52 % Absolute Reticulocyte Count 0.06 0.02-0.10 10^6/uL Percent Reticulocyte Count 1.7 0.5-2.0 % Sodium Level 132 136-145 mmol/L Potassium Level 4.3 3.5-5.1 mmol/L Chloride Level 101 98-107 mmol/L Carbon Dioxide Level 25 21-32 mmol/L Anion Gap 6.0 3-11 mmol/L Blood Urea Nitrogen 10 7-18 mg/dl Creatinine 1.09 0.60-1.40 mg/dl Est Creatinine Clear Calc Drug Dose 78.2 ml/min Estimated GFR () 82.1 Estimated GFR (Non- 70.9 BUN/Creatinine Ratio 9.0 10-20 Random Glucose 359 70-99 mg/dl Calcium Level 7.3 8.5-10.1 mg/dl Phosphorus Level 2.5 2.5-4.9 mg/dl Magnesium Level 2.1 1.8-2.4 mg/dl Beta-Hydroxybutyric Acid 1.34 0.2-2.81 mg/dL Test 04/19/17 01:11 04/19/17 02:12 04/19/17 03:18 04/19/17 04:21 Range/Units Bedside Glucose 179 191 123 113 70-99 mg/dl Test 04/19/17 05:11 04/19/17 05:37 04/19/17 06:24 04/19/17 06:53 Range/Units Bedside Glucose 97 79 104 70-99 mg/dl White Blood Count 32.28 4.8-10.8 K/uL Red Blood Count 3.85 4.7-6.1 M/uL Hemoglobin 8.8 14.0-18.0 g/dL Hematocrit 30.0 42-52 % Mean Corpuscular Volume 77.9 80-100 fL Mean Corpuscular Hemoglobin 22.9 25-34 pg Mean Corpuscular Hemoglobin Concent 29.3 32-36 g/dl Platelet Count 319 130-400 K/uL Mean Platelet Volume 10.1 7.4-10.4 fL Neutrophils (%) (Auto) 75.5 % Lymphocytes (%) (Auto) 10.3 % Monocytes (%) (Auto) 12.7 % Eosinophils (%) (Auto) 0.8 % Basophils (%) (Auto) 0.2 % Neutrophils # (Auto) 24.37 1.4-6.5 K/uL Lymphocytes # (Auto) 3.33 1.2-3.4 K/uL Monocytes # (Auto) 4.10 0.11-0.59 K/uL Eosinophils # (Auto) 0.26 0-0.5 K/uL Basophils # (Auto) 0.06 0-0.2 K/uL RDW Standard Deviation 55.8 36.4-46.3 fL RDW Coefficient of Variation 19.7 11.5-14.5 % Immature Granulocyte % (Auto) 0.5 % Immature Granulocyte # (Auto) 0.16 0.00-0.02 K/uL Nucleated RBC Absolute Count (auto) 0.24 0-0 K/uL Nucleated Red Blood Cells % 0.7 % Toxic Granulation 1+ Toxic Vacuolation 2+ Polychromasia 1+ Anisocytosis PRESENT Spherocytes 1+ Target Cells 2+ Doss-Traer Bodies 1+ Prothrombin Time 12.8 9.0-12.0 SECONDS Prothromb Time International Ratio 1.2 0.9-1.1 Activated Partial Thromboplast Time 29.2 21.0-31.0 SECONDS Partial Thromboplastin Ratio 1.1 Sodium Level 137 136-145 mmol/L Potassium Level 4.1 3.5-5.1 mmol/L Chloride Level 106 98-107 mmol/L Carbon Dioxide Level 28 21-32 mmol/L Anion Gap 3.0 3-11 mmol/L Blood Urea Nitrogen 13 7-18 mg/dl Creatinine 1.01 0.60-1.40 mg/dl Est Creatinine Clear Calc Drug Dose 84.4 ml/min Estimated GFR () 90.0 Estimated GFR (Non- 77.7 BUN/Creatinine Ratio 12.4 10-20 Random Glucose 80 70-99 mg/dl Lactic Acid Level 0.6 0.4-2.0 mmol/L Calcium Level 7.4 8.5-10.1 mg/dl Phosphorus Level 2.6 2.5-4.9 mg/dl Magnesium Level 2.2 1.8-2.4 mg/dl Total Bilirubin 0.7 0.2-1 mg/dl Direct Bilirubin 0.4 0-0.2 mg/dl Aspartate Amino Transf (AST/SGOT) 22 15-37 U/L Alanine Aminotransferase (ALT/SGPT) 14 12-78 U/L Alkaline Phosphatase 137 45-117 U/L Troponin I 0.034 0-0.045 ng/ml Total Protein 7.3 6.4-8.2 gm/dl Albumin 1.8 3.4-5.0 gm/dl Test 04/19/17 07:13 04/19/17 07:28 04/19/17 08:17 04/19/17 12:36 Range/Units Bedside Glucose 92 94 86 70-99 mg/dl Hemoglobin 9.2 14.0-18.0 g/dL Hematocrit 30.0 42-52 % Test 04/19/17 12:43 Range/Units Blood Gas Sample Site Art Line Bedside Blood Gas pH (LAB) 7.23 7.35-7.45 Bedside Blood Gas pCO2 (LAB) 62 35-46 mmHg Bedside Blood Gas pO2 (LAB) 78 80-95 mmHg Bedside Blood Gas HCO3 (LAB) 26 19-24 meq/L Bedside Blood Gas Total CO2 28 24-31 mEq/l Bedside Blood Gas Base Excess (LAB) -1.0 -9-1.8 meq/L Bedside Blood Gas O2 Saturation 93.0 90-95 % Shan Test NA Oxygen Delivery Device Ventilator Bedside Oxygen Rate (breaths/min) 16 Blood Gas Minute Ventilation 7.5 Bedside FiO2 60 % Blood Gas Tidal Volume 450 Blood Gas PEEP 12 Microbiology Results 04/19/17 Blood Culture, Received Pending 04/19/17 Blood Culture, Received Pending
[2017-04-19 20:56] LABS: HEMATOCRIT 31.9 % (42-52); HEMOGLOBIN 9.5 g/dL (14.0-18.0)
[2017-04-19] MEDS: AZITHROMYCIN 500 MG / D5W 250 ML IV SCH ×2 (21:30)
[2017-04-20] VITALS (9 sets, daily range): BP systolic 134–178; BP diastolic 67–104; PULSE 59–74; TEMP 36.5–36.8; O2SAT 95–99
[2017-04-20] MEDS: PANTOprazole INJ 40 MG in DEXTROSE 5% 100ML IV SCH ×2 (04:02→10:58)
[2017-04-20] MEDS: ACYCLOVIR SOD IV SCH (05:44)
[2017-04-20] MEDS: DEXTROSE 5% IV SCH (05:44)
[2017-04-20 06:15] LABS: HEMATOCRIT 32.1 % (42-52); HEMOGLOBIN 9.4 g/dL (14.0-18.0); MEAN CORPUSCULAR HEMOGLOBIN 22.5 pg (25-34); MEAN CORPUSCULAR HGB CONC 29.3 g/dl (32-36); MEAN PLATELET VOLUME 10.4 fL (7.4-10.4); PLATELET COUNT 328 K/uL (130-400); RED CELL DISTRIBUTION WIDTH CV 19.8 % (11.5-14.5); RED CELL DISTRIBUTION WIDTH SD 55.7 fL (36.4-46.3); WHITE BLOOD COUNT 22.19 K/uL (4.8-10.8)
[2017-04-20] MEDS ORDERED: VANCOMYCIN TROUGH ONE (06:30)
[2017-04-20 06:37] LABS: BASO % 0.2 %; BASO ABS # 0.05 K/uL (0-0.2); EOS % 1.3 %; EOS ABS # 0.29 K/uL (0-0.5); IG# 0.11 K/uL (0.00-0.02); LYMPH % 11.5 %; LYMPH ABS # 2.56 K/uL (1.2-3.4); MONO % 16.1 %; MONO ABS # 3.57 K/uL (0.11-0.59); NEUT % 70.4 %; NEUT ABS # 15.61 K/uL (1.4-6.5)
[2017-04-20 06:51] LABS: ALBUMIN 1.8 gm/dl (3.4-5.0); CALCIUM 7.6 mg/dl (8.5-10.1); CREATININE 0.89 mg/dl (0.60-1.40); POTASSIUM 3.9 mmol/L (3.5-5.1)
[2017-04-20 06:54] LABS: PHOSPHORUS 2.1 mg/dl (2.5-4.9); TOTAL PROTEIN 7.2 gm/dl (6.4-8.2)
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
[2017-04-20] MEDS ORDERED: VANCOMYCIN IV 1,500 MG in SODIUM CHLORIDE 0.9% 500ML 500 ML IV ONE (08:00)
[2017-04-20] MEDS: ALBUTEROL HFA 8 GM INHALER INH SCH ×3 (08:00→14:32)
[2017-04-20] MEDS: IPRATROPIUM BROMIDE HFA INHALER INH SCH ×3 (08:00→14:32)
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
--- NOTE | 2017-04-20 08:12 | Surgery Progress Note ---
Surgery Progress Note Date of Service Apr 20, 2017. Subjective see Jt Santos's note/consult pt in ICU w/ positive blood cultures on different days via port- concern for infected port pt on ventilator/ sedated Objective Vital Signs: Date Time Temp Pulse Resp B/P (MAP) Pulse Ox O2 Delivery O2 Flow Rate FiO2 04/20/17 06:00 70 16 178/75 (109) 98 Mechanical Ventilator 45 154/87 (109) 04/20/17 05:10 45 04/20/17 04:05 36.5 04/20/17 04:00 69 16 161/104 (123) 96 Mechanical Ventilator 45 168/77 (107) 04/20/17 04:00 45 04/20/17 04:00 Mechanical Ventilator 45 04/20/17 02:14 45 04/20/17 02:00 68 16 134/78 (96) 99 Mechanical Ventilator 45 135/67 (89) 04/20/17 00:00 74 18 150/96 (114) 95 Mechanical Ventilator 45 169/77 (107) 04/19/17 23:59 45 04/19/17 23:59 Mechanical Ventilator 45 04/19/17 23:34 45 04/19/17 23:13 36.5 04/19/17 22:00 72 17 149/93 (111) 95 04/19/17 20:11 76 16 95 Mechanical Ventilator 50 04/19/17 20:10 60 04/19/17 20:00 60 04/19/17 20:00 Mechanical Ventilator 60 04/19/17 20:00 37.5 74 16 127/80 (96) 98 04/19/17 19:39 77 17 144/87 (106) 95 04/19/17 19:00 75 15 156/66 (96) 96 04/19/17 17:33 60 04/19/17 17:00 78 17 156/64 (94) 95 Mechanical Ventilator 60 04/19/17 16:00 100 04/19/17 16:00 Mechanical Ventilator 100 04/19/17 16:00 37.6 83 19 159/77 (104) 99 Mechanical Ventilator 60 04/19/17 15:51 75 16 124/72 (89) 98 Mechanical Ventilator 60 04/19/17 15:00 76 16 148/66 (93) 97 Mechanical Ventilator 60 04/19/17 14:22 60 04/19/17 14:00 76 15 153/67 (95) 94 Mechanical Ventilator 60 04/19/17 13:00 75 16 146/65 (92) 94 Mechanical Ventilator 60 04/19/17 12:00 Mechanical Ventilator 100 04/19/17 12:00 100 04/19/17 12:00 36.8 77 16 120/51 (74) 97 Mechanical Ventilator 100 04/19/17 11:59 77 16 103/64 (77) 97 Mechanical Ventilator 100 04/19/17 11:50 60 04/19/17 11:20 100 04/19/17 11:20 84 16 101/60 (74) 98 Mechanical Ventilator 100 04/19/17 11:16 92 16 123/76 (92) 95 Mechanical Ventilator 100 04/19/17 11:13 122 16 115/73 (87) 99 Mechanical Ventilator 100 04/19/17 11:00 80 16 116/68 (84) 98 Mechanical Ventilator 100 04/19/17 10:00 73 16 141/78 (99) 99 Mechanical Ventilator 100 04/19/17 09:00 37.0 78 16 127/78 (94) 95 Mechanical Ventilator 100 General Appearance: no apparent distress Respiratory/Chest: + pertinent finding (port in place Lt chest- accessed) Laboratory Results: Results Past 24 Hours Test 04/19/17 08:17 04/19/17 11:23 04/19/17 12:36 04/19/17 12:43 Range/Units Bedside Glucose 86 103 70-99 mg/dl Hemoglobin 9.2 14.0-18.0 g/dL Hematocrit 30.0 42-52 % Blood Gas Sample Site Art Line Bedside Blood Gas pH (LAB) 7.23 7.35-7.45 Bedside Blood Gas pCO2 (LAB) 62 35-46 mmHg Bedside Blood Gas pO2 (LAB) 78 80-95 mmHg Bedside Blood Gas HCO3 (LAB) 26 19-24 meq/L Bedside Blood Gas Total CO2 28 24-31 mEq/l Bedside Blood Gas Base Excess (LAB) -1.0 -9-1.8 meq/L Bedside Blood Gas O2 Saturation 93.0 90-95 % Shan Test NA Oxygen Delivery Device Ventilator Bedside Oxygen Rate (breaths/min) 16 Blood Gas Minute Ventilation 7.5 Bedside FiO2 60 % Blood Gas Tidal Volume 450 Blood Gas PEEP 12 Test 04/19/17 18:12 04/19/17 20:42 04/20/17 00:03 04/20/17 05:33 Range/Units Bedside Glucose 135 146 70-99 mg/dl Hemoglobin 9.5 9.4 14.0-18.0 g/dL Hematocrit 31.9 32.1 42-52 % White Blood Count 22.19 4.8-10.8 K/uL Red Blood Count 4.17 4.7-6.1 M/uL Mean Corpuscular Volume 77.0 80-100 fL Mean Corpuscular Hemoglobin 22.5 25-34 pg Mean Corpuscular Hemoglobin Concent 29.3 32-36 g/dl Platelet Count 328 130-400 K/uL Mean Platelet Volume 10.4 7.4-10.4 fL Neutrophils (%) (Auto) 70.4 % Lymphocytes (%) (Auto) 11.5 % Monocytes (%) (Auto) 16.1 % Eosinophils (%) (Auto) 1.3 % Basophils (%) (Auto) 0.2 % Neutrophils # (Auto) 15.61 1.4-6.5 K/uL Lymphocytes # (Auto) 2.56 1.2-3.4 K/uL Monocytes # (Auto) 3.57 0.11-0.59 K/uL Eosinophils # (Auto) 0.29 0-0.5 K/uL Basophils # (Auto) 0.05 0-0.2 K/uL RDW Standard Deviation 55.7 36.4-46.3 fL RDW Coefficient of Variation 19.8 11.5-14.5 % Immature Granulocyte % (Auto) 0.5 % Immature Granulocyte # (Auto) 0.11 0.00-0.02 K/uL Nucleated RBC Absolute Count (auto) 0.30 0-0 K/uL Nucleated Red Blood Cells % 1.4 % Target Cells 1+ Sodium Level 138 136-145 mmol/L Potassium Level 3.9 3.5-5.1 mmol/L Chloride Level 105 98-107 mmol/L Carbon Dioxide Level 27 21-32 mmol/L Anion Gap 6.0 3-11 mmol/L Blood Urea Nitrogen 9 7-18 mg/dl Creatinine 0.89 0.60-1.40 mg/dl Est Creatinine Clear Calc Drug Dose 97.5 ml/min Estimated GFR () 104.0 Estimated GFR (Non- 89.7 BUN/Creatinine Ratio 9.6 10-20 Random Glucose 112 70-99 mg/dl Calcium Level 7.6 8.5-10.1 mg/dl Phosphorus Level 2.1 2.5-4.9 mg/dl Magnesium Level 2.1 1.8-2.4 mg/dl Total Bilirubin 0.5 0.2-1 mg/dl Direct Bilirubin 0.3 0-0.2 mg/dl Aspartate Amino Transf (AST/SGOT) 21 15-37 U/L Alanine Aminotransferase (ALT/SGPT) 13 12-78 U/L Alkaline Phosphatase 135 45-117 U/L Total Protein 7.2 6.4-8.2 gm/dl Albumin 1.8 3.4-5.0 gm/dl Test 04/20/17 05:39 04/20/17 06:26 Range/Units Blood Gas Sample Site L Radial Bedside Blood Gas pH (LAB) 7.32 7.35-7.45 Bedside Blood Gas pCO2 (LAB) 51 35-46 mmHg Bedside Blood Gas pO2 (LAB) 76 80-95 mmHg Bedside Blood Gas HCO3 (LAB) 26 19-24 meq/L Bedside Blood Gas Total CO2 28 24-31 mEq/l Bedside Blood Gas Base Excess (LAB) 0.0 -9-1.8 meq/L Bedside Blood Gas O2 Saturation 94.0 90-95 % Shan Test NA Oxygen Delivery Device Ventilator Bedside Oxygen Rate (breaths/min) 16 Blood Gas Minute Ventilation 7.1 Bedside FiO2 45 % Blood Gas Tidal Volume 450 Blood Gas PEEP 8 Vancomycin Level Trough 14.7 SEE COMMENT mcg/ml Microbiology Results 04/19/17 Blood Culture, Received Pending 04/19/17 Blood Culture - Preliminary, Resulted Gram Negative Bacilli Assessment & Plan 04/20/17- port in place with positive blood cultures for removal. Possibly at bedside depending on OR availability. Urgent case.
--- NOTE | 2017-04-20 08:46 | Cardiology Consultation ---
Cardiology Consultation Date of Service Apr 20, 2017. Cardiology Consultation History: This is a 67-year-old inmate with a history of stomach lymphoma, renal cell carcinoma and persistent low-level GI bleeding. He was originally admitted with respiratory failure and sepsis. The patient has had a persistent bacteremia of Klebsiella and his urine cultures are also growing the same. The patient had an echocardiogram completed which has a nodule on the aortic valve leaflets. This may be a nonspecific finding but with the patient's persistent bacteremia there is a concern that it may be due to endocarditis. Although Klebsiella rarely causes endocarditis it can occur on rare occasions especially in immunocompromised patients. This patient has a history of stomach lymphoma and renal cell carcinoma which I believe put him at risk. The patient is currently intubated and sedated. I have been asked to complete a transesophageal echocardiogram to evaluate the patient for valvular vegetations that may indicate endocarditis. I think it is reasonable at this time to proceed. Patient remains intubated and sedated. Allergies: Ector inhibitors and ciprofloxacin Current Inpatient Medications Medications (Trade) Dose Ordered Sig/Glenn Route Start Time Stop Time Status Last Admin Dose Admin Miscellaneous Information (Consult) 1 ea UD PRN N/A 04/18/17 12:00 05/18/17 11:59 Miscellaneous Information (Consult) 1 ea UD PRN N/A 04/18/17 12:30 05/18/17 12:29 Acyclovir Sodium (Consult) 1 ea UD PRN N/A 04/18/17 12:30 05/18/17 12:29 Miscellaneous Information ([facility] Protocol For Hyperglycemia) 1 ea PRN PRN N/A 04/18/17 12:30 04/20/17 12:29 Ioversol (Optiray 320) 125 ml UD PRN IV 04/18/17 13:00 04/22/17 12:59 Azithromycin 500 mg/Dextrose 255 ml @ 127.5 mls/ hr Q24H IV 04/18/17 21:00 04/25/17 20:59 04/19/17 21:30 127.5 MLS/HR Propofol (Diprivan Iv Emulsion 100ml Vial) 1 dose UD PRN IV 04/18/17 15:09 04/21/17 15:08 04/19/17 11:20 1 DOSE Fentanyl Citrate 250 ml @ 0 mls/hr Q0M PRN IV 04/18/17 15:00 05/02/17 14:59 04/19/17 13:09 10 MLS/HR Pantoprazole Sodium 40 mg/ Dextrose 100 ml @ 20 mls/hr Q5H IV 04/18/17 16:00 05/18/17 15:59 04/20/17 04:02 20 MLS/HR Octreotide Acetate 500 mcg/ Sodium Chloride 105 ml @ 10 mls/hr [id number] IV 04/18/17 15:31 05/18/17 15:30 04/19/17 23:38 10 MLS/HR Piperacillin Sod/ Tazobactam Sod 4.5 gm/Dextrose 120 ml @ 30 mls/hr Q8H IV 04/18/17 16:00 04/25/17 15:59 04/19/17 23:38 30 MLS/HR Acyclovir Sodium 725 mg/Dextrose 114.5 ml @ 100 mls/hr Q8H IV 04/18/17 22:00 04/25/17 21:59 04/20/17 05:44 100 MLS/HR Midazolam HCl 250 ml @ 0 mls/hr Q0M PRN IV 04/18/17 19:02 05/18/17 19:01 04/19/17 16:12 4 MLS/HR Glucose (Glucose 40% Gel) 15-30 GRAMS 15 GRAMS... UD PRN PO 04/18/17 23:45 05/18/17 23:44 Glucose (Glucose Chew Tab) 4-8 Tablets 4 Tabl... UD PRN PO 04/18/17 23:45 05/18/17 23:44 Dextrose (Dextrose 50% 50ML Syringe) 25-50ML OF 50% DW IV FOR... UD PRN IV 04/18/17 23:45 05/18/17 23:44 04/19/17 06:37 25 ML Glucagon (Glucagon Inj) 1 mg UD PRN SQ 04/18/17 23:45 05/18/17 23:44 Parenteral Electrolyte Solution 1,000 ml @ 75 mls/hr [id number] IV 04/19/17 09:00 05/19/17 08:59 04/19/17 20:26 75 MLS/HR Levothyroxine Sodium 90 mcg/ Syringe 4.5 ml @ 2 mls/min DAILY@09 IV 04/19/17 09:00 05/19/17 08:59 04/19/17 09:28 2 MLS/MIN Vancomycin HCl 1500 mg/Sodium Chloride 530 ml @ 200 mls/hr Q14H IV 04/19/17 17:00 04/26/17 16:59 Future hold 04/19/17 16:11 200 MLS/HR Miscellaneous Information ( [facility]cu Electrolyte Replacement Protocol) 1 ea per protocol PRN N/A 04/19/17 16:30 04/26/17 16:29 Albuterol (Ventolin Hfa Inhaler) 1 puffs QIDR INH 04/19/17 20:00 05/19/17 19:59 04/19/17 20:11 1 PUFFS Ipratropium [place] (Atrovent Hfa Inhaler) 1 puffs QIDR INH 04/19/17 20:00 05/19/17 19:59 04/19/17 20:11 1 PUFFS Ipratropium [place] (Atrovent Hfa Inhaler) 4 puffs QIDR INH 04/20/17 08:00 05/20/17 07:59 UNV Albuterol (Ventolin Hfa Inhaler) 4 puffs QIDR INH 04/20/17 08:00 05/20/17 07:59 UNV Vancomycin HCl 1500 mg/Sodium Chloride 530 ml @ 200 mls/hr ONE ONCE IV 04/20/17 08:00 04/20/17 10:38 Social history: The patient is currently incarcerated at the [facility] facility. Family medical history: Unobtainable Review of systems: Unobtainable Vital Signs Past 12 Hours Date Time Temp Pulse Resp B/P (MAP) Pulse Ox O2 Delivery O2 Flow Rate FiO2 04/20/17 06:00 70 16 178/75 (109) 98 Mechanical Ventilator 45 154/87 (109) 04/20/17 05:10 45 04/20/17 04:05 36.5 04/20/17 04:00 69 16 161/104 (123) 96 Mechanical Ventilator 45 168/77 (107) 04/20/17 04:00 45 04/20/17 04:00 Mechanical Ventilator 45 04/20/17 02:14 45 04/20/17 02:00 68 16 134/78 (96) 99 Mechanical Ventilator 45 135/67 (89) 04/20/17 00:00 74 18 150/96 (114) 95 Mechanical Ventilator 45 169/77 (107) 04/19/17 23:59 45 04/19/17 23:59 Mechanical Ventilator 45 04/19/17 23:34 45 04/19/17 23:13 36.5 04/19/17 22:00 72 17 149/93 (111) 95 Physical exam: Gen. patient is currently hemodynamically stable but sedated HEENT: The patient is intubated. Pupils are equal and reactive to light he has a scar on his forehead Neck: The neck veins are flat. Thyroid is not palpable Respiratory: Breath sounds are equal bilaterally Cardiovascular: The heart has a regular rhythm there are no significant murmurs Abdomen: Soft and nontender without organomegaly Extremities: Free of edema digital clubbing or cyanosis Neuro: Grossly intact Lymph nodes: None palpable Skin: Warm to touch Impression: 1. Persistent bacteremia with Klebsiella 2. Immunocompromised due to history of lymphoma and renal cell carcinoma 3. Rule out endocarditis Recommendations: I think it's reasonable to proceed with a transesophageal echocardiogram. The patient cannot give informed consent due to his sedation and intubation. We have tried to contact the patient's sister without success. Messages were left on voice mail and not returned. Both Dr. Fermin and myself agree that the transesophageal echocardiogram is clinically indicated and that the benefits far outweigh the risks in this critically ill patient. The procedure needs to be completed on a semiurgent basis so we will proceed.
[2017-04-20] MEDS ORDERED: BENZOCAIN/TETRACA/BUTAM SPRAY 200 APPLN/20 GM SPRY ONE (09:05)
[2017-04-20] MEDS ORDERED: CANNULA ONE (09:05)
[2017-04-20] MEDS: NORMOSOL R 1,000 ML IV SCH (09:10)
[2017-04-20] MEDS: OCTREOTIDE ACETATE INJ 500 MCG in NSS 100ML IV SCH (09:10)
[2017-04-20] MEDS: LEVOTHYROXINE SODIUM IV SCH (09:10)
[2017-04-20] MEDS ORDERED: ERTAPENEM IV 1 GM in SODIUM CHLOR 0.9% AD-VAN 50ML IV SCH (09:15)
--- NOTE | 2017-04-20 09:25 | Pharmacy Progress Note ---
Pharmacy Abx Dose Short Note Date of Service Apr 20, 2017. Assessment & Plan Assessment 67 year old male receiving Vancomcyin, zosyn, acyclovir, and azithromycin for treatment empiric treatment. Cultures have shown a fairly resistant klebsiella growing in the urine and the blood (1/2 drawn from the patient's port). While we have confirmed bacterial presence in the blood and urine, other infectious sources such as GI and endocarditis remain a consideration. While the klebsiella was susceptible to zosyn, given the resistance pattern we will transition to ertapenem 1 g q24, for which I would recommend a full course. At this time the acyclovir will be discontinued and the azithromycin course will complete after 5 days. Plan Vancomycin * Trough level of 14.7 mcg/mL is therapeutic and may not quite yet be at steady state. Trough levels may be pushed if endocarditis/septic emboli remains a consideration * Continue dose of 1500 mg IV every 14 hours * Goal trough level for : 15 to 20 mcg/mL * Trough or random level ordered for: As indicated based on renal function and clinical status Pharmacy will continue to follow and will adjust dose/frequency as necessary. Thank you.
[2017-04-20] MEDS ORDERED: LIDOCAINE HCL 1% 20 ML VIAL ONE (09:51)
[2017-04-20] MEDS ORDERED: PROPOFOL IV EMULSION 10 MG/ML 20 ML VIAL IV ONE (10:15)
[2017-04-20] MEDS ORDERED: MIDAZOLAM HCL 1 MG/ML 2ML VIAL ONE (10:15)
[2017-04-20] MEDS ORDERED: FENTANYL CITRATE INJ 50 MCG/1 ML 2 ML VIAL ONE (10:16)
[2017-04-20] MEDS ORDERED: KETAMINE HCL INJ 50 MG/ML 10 ML VIAL ONE (10:16)
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
--- NOTE | 2017-04-20 10:54 | [facility] Operative Report ---
Operative Report Operative Date Apr 20, 2017. Pre-Operative Diagnosis infected port/sepsis Post-Operative Diagnosis same Procedure(s) Performed port removal Surgeon Sonny Pickle Pumper Surgeon(s) Alek Santos Estimated Blood Loss 5cc Findings performed at bedside Specimens port catheter cultured Drains None Anesthesia Type MAC Complication(s) none Disposition Surgical ICU (case performed at bedside) I attest to the content of the Intraoperative Record and any orders documented therein. Any exceptions are noted below.
[2017-04-20] MEDS: CASPOFUNGIN INJ 50 MG in SODIUM CHLORIDE 0.9% 250ML 250 ML IV SCH ×2 (10:57→11:47)
--- NOTE | 2017-04-20 10:57 | Progress Note ---
Progress Note Date of Service Apr 20, 2017. Progress Note Mr. Sparrow is a 67 yr old male with bacteremia. A port with Klesiella, aortic valve with vegetation. GI consulted for anemia. Hb 6.3 on arrival. Received 2 units of RBCs. Hb today 9.5. Imaging suggesting esophageal varices. No gross bleeding but stool occult positive. Discussed with Dr. Holder and Dr. Godfrey. OK to DC Octreotide. OK to change Protonix drip to IV BID. Plan is to transfer pt to [facility].
--- NOTE | 2017-04-20 11:06 | OPERATIVE REPORT ---
DATE OF OPERATION: 04/20/2017 NAME OF OPERATION: Port removal. PREOPERATIVE DIAGNOSIS: Infected port. POSTOPERATIVE DIAGNOSIS: Same with sepsis. STAFF SURGEON: Dr. Dennis. RESIDENTIAL PROGRAM MANAGER: Carlos Santos PA-C. ANESTHESIA: 1% plain lidocaine with sedation. DESCRIPTION OF PROCEDURE: The patient was in his ICU bed in his room, intubated and sedated, the anesthesiologist helped with additional sedation. His left upper chest was prepped and draped in usual fashion. Using 1% plain lidocaine, the skin and subcutaneous tissue over the port were anesthetized. Incision made carrying dissection down identifying the port and then dissecting the port from surrounding tissue was very well incorporated in the subcutaneous tissue. The catheter was then removed and the tip sent for culture. The tunnel was oversewn using 2-0 chromic suture then the subcutaneous tissue reapproximated using 2-0 chromic suture then the skin reapproximated using interrupted 4-0 nylon suture. The patient was in his bed in stable condition. He seemed to tolerate the procedure well. As you know, my assistant paralegal Carlos helped with passing the instruments during the entire procedure. I attest to the content of the Intraoperative Record and any orders documented therein. Any exception s are noted below.
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
[2017-04-20] MEDS: FENTANYL 1250MCG/250ML NSS 250 ML IV PRN (12:05)
--- NOTE | 2017-04-20 12:24 | Anesthesiology Progress Note ---
Anesthesia Post Op Note Date & Time Apr 20, 2017 at 12:23 Vital Signs Pain Intensity: 0.0 Vital Signs Past 12 Hours Date Time Temp Pulse Resp B/P (MAP) Pulse Ox O2 Delivery O2 Flow Rate FiO2 04/20/17 12:05 63 14 137/78 (97) 95 Mechanical Ventilator 40 04/20/17 11:30 45 04/20/17 10:00 70 16 163/68 (99) 98 Mechanical Ventilator 40 137/78 (97) 04/20/17 08:00 Mechanical Ventilator 45 04/20/17 08:00 Mechanical Ventilator 45 04/20/17 08:00 45 04/20/17 07:50 45 04/20/17 06:00 70 16 178/75 (109) 98 Mechanical Ventilator 45 154/87 (109) 04/20/17 05:10 45 04/20/17 04:05 36.5 04/20/17 04:00 69 16 161/104 (123) 96 Mechanical Ventilator 45 168/77 (107) 04/20/17 04:00 45 04/20/17 04:00 Mechanical Ventilator 45 04/20/17 02:14 45 04/20/17 02:00 68 16 134/78 (96) 99 Mechanical Ventilator 45 135/67 (89) Notes Mental Status: see Notes Pt Amnestic to Procedure: Yes Nausea / Vomiting: adequately controlled Pain: adequately controlled Airway Patency, RR, SpO2: stable & adequate, see Notes BP & HR: stable & adequate Hydration State: stable & adequate Anesthetic Complications: no major complications apparent Patient intubated and sedated prior to procedure. Remained ventilated after the procedure. VSS. No complications.
[2017-04-20] MEDS ORDERED: HEPARIN SOD 5000 UNIT/0.5 ML CARP SQ SCH (14:00)
--- NOTE | 2017-04-20 14:28 | Progress Note ---
Progress Note Date of Service Apr 20, 2017. Progress Note ID Consult Dictated #[id number] A/P: 1. Infected port 2. K. pneumo septicemia 3. Leukocytosis -Continue ertapenem, repeat blood cultures now that port is out -Port culture pending, if no additional organisms found, can narrow therapy -thank you
--- NOTE | 2017-04-20 15:21 | INFECT. DISEASE CONSULTATION ---
DATE OF CONSULTATION: 04/20/2017 HISTORY OF PRESENT ILLNESS: This is a 67-year-old gentleman who is an inmate at [facility], who was admitted after blood transfusion when he was found to be unresponsive. He currently is sedated and ventilated and is resting comfortably. He was found to have a positive blood culture with Klebsiella pneumonia on the as well as on the 19 of April. He was initially on Zosyn and then transitioned to ertapenem. He was found to have an ESBL producing strain. Repeat blood cultures were not obtained today; however, his previous cultures were obtained from the port. This was removed successfully earlier today. He initially had a white blood cell count of 8, but this peaked at 31 and now is 22 today. He is currently on caspofungin, ertapenem, vancomycin and azithromycin. He does have a positive urinalysis with greater than 30 WBCs and +4 bacteria. There is no urine culture. He did undergo bronchoscopy on the . His cultures from this are negative. 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 It is unclear when his port was placed. There is no tenderness or bleeding around the port site on my examination. Again, the patient is intubated and sedated on the ventilator. I am unable to obtain any review of systems. PAST MEDICAL HISTORY: Significant for a history of alcohol abuse, anemia, coronary artery disease, sinusitis, COPD, MALT lymphoma of the stomach, GERD, hyperlipidemia, hypertension, hypothyroidism, malignant neoplasm of the kidney, neuropathy and peripheral vascular disease. FAMILY HISTORY: Noncontributory. SOCIAL HISTORY: Significant for resident of [facility]. ALLERGIES: HE HAS ALLERGIES TO CIPRO AND YONNY INHIBITORS. MEDICATIONS: Include Protonix, subQ heparin, caspofungin, ertapenem, Atrovent, albuterol, vancomycin, levothyroxine, azithromycin, propofol, and fentanyl. PHYSICAL EXAMINATION: VITAL SIGNS: He is afebrile, pulse 61, respiratory rate 14, blood pressure 171/95, and oxygen saturation is 95% on 40% FiO2. GENERAL: He is sedated on the ventilator. HEART: Regular. LUNGS: Clear anteriorly. ABDOMEN: Nondistended. There is no edema. SKIN: Without rash. EXTREMITIES: Right upper extremity PICC line is clean, dry and intact. Old port site, which was removed earlier today. Dressing is clean, dry and intact. There is no surrounding induration, erythema or warmth. LABORATORY STUDIES: CBC today reveals a white blood cell count of 22.1, hemoglobin 9.4, and platelets are 328. Chemistry panel reveals a sodium of 138, potassium 3.9, chloride 105, bicarbonate 27, BUN 9, creatinine 0.8, and glucose is 112. Urinalysis again had greater than 30 WBCs and 4+ bacteria. Vancomycin trough was 14. Stool for blood was positive. Flu swab was negative. Blood cultures from the are growing Klebsiella pneumonia with sensitivities to amikacin, cefoxitin, ciprofloxacin, ertapenem, gentamicin, imipenem, levofloxacin and Zosyn. Bronch cultures are negative. Repeat blood cultures on the are growing gram negative rods, which have not been identified. Port culture from today is pending. Chest x-ray done today shows pulmonary edema and suspected pleural effusions. Previous imaging is as above. ASSESSMENT: 1. Klebsiella pneumoniae septicemia, likely secondary to an infected port, which is now removed. 2. Leukocytosis, improving. At this time, he will remain on ertapenem. If repeat cultures from the port and blood cultures are negative, certainly his antibiotics can be narrowed. Repeat blood culture should be obtained status post port removal to document sterility. We will follow along with you. Thank you for this consultation.
--- NOTE | 2017-04-20 15:50 | TEE ---
*NOTICE TO RECEIVING LIBERTARIAN AGENCY This information is strictly Confidential and protected under [place] law. [place] law prohibits you from making any further disclosure of this information unless further disclosure is expressly permitted by the written consent of the person to whom it pertains or is authorized by law. A general authorization for the release of medical or other information is not sufficient for this purpose. Hospital accepts no responsibility if the information is made available to any other person, INCLUDING THE PATIENT. Interpretation Summary * Name: DHRUV ULRICH [id number] Study Date: 04/20/2017 09:22 AM BP: 154/87 mmHg * Patient Location: .MSICU\S\E103\S\1 HR: 75 * : 1950 (M/d/yyyy) Gender: Male Height: 70 in * Age: 67 yrs Ethnicity: AA Weight: 217 lb * Ordering Physician: Yoshi Gibson * Referring Physician: Self, Referred * Performed By: Richa Paul RCS * * Reason For Study: Endocarditis * BSA: 2.2 m2 * -- Conclusions -- * Small vegetationon on the aortic valve right coronary cusp taken with the patients clinical findings may be consistent with endocarditis. * The remainder of the valves are free of any findings suggestive of endocarditis. Procedure Details * MOIZ Probe #1 utilized for procedure. * The study was performed at bedside. * Time out was conducted by the physician, nurse, and endoscopy technican with positive identification of patient and procedure. * The patient's vital signs, including blood pressure, heart rate, pulse oximetry and cardiac rhythm were monitored throughout the procedure . * Sedation performed by the anesthesia department. * Patient was intubated at time of procedure and therefore already under the sedation of Fentanyl by ICU nursing staff. * A multifrequency, multiplane transesopheageal echocardiographic endoscope was inserted and manipulated in the standard fashion to achieve multiplane views. * The transesophageal probe was passed without difficulty. * The patient tolerated the procedure well without evidence of orophangeal or esophageal trauma. * A 2D transesophageal echocardiogram was performed. * A 2D transesophageal echocardiogram with color flow Doppler was performed. Left Ventricle * The left ventricle is normal in size. * There is normal left ventricular wall thickness. * Left ventricular systolic function is normal. * The left ventricular wall motion is normal. Right Ventricle * The right ventricle is normal size. * The right ventricular systolic function is normal. Atria * The left atrial size is normal. * No thrombus is detected in the left atrial appendage. * Right atrial size is normal. * The interatrial septum is intact with no evidence for an atrial septal defect. Mitral Valve * The mitral valve anatomy is normal. * There is no vegetation seen on the mitral valve. * Significant mitral regurgitation is absent. Tricuspid Valve * The tricuspid valve anatomy is normal. * There is no tricuspid valve vegetation. * Significant tricuspid regurgitation is absent. Aortic Valve * There is a small vegetation or mass on the aortic valve. * Small vegetationon on the right coronary cusp taken with the patients clinical findings may be consistent with endocarditis. Pulmonic Valve * The pulmonic valve is not well seen, but is grossly normal. Great Vessels * The aortic root and proximal ascending aorta are normal sized. Pericardium * There is no pericardial effusion. Right Ventricle * The right ventricular wall motion is normal. Pulmonic Valve * There is no vegetation on the pulmonic valve.
--- NOTE | 2017-04-20 16:32 | DIAGNOSTIC IMAGING REPORT ---
ANGIOGRAPHY HEAD COMBO CLINICAL HISTORY: Encephalopathy. Sepsis. Cancer patient. COMPARISON STUDY: Head CT April 18, 2017. TECHNIQUE: Unenhanced and arterial phase imaging of the head was performed. Injection of 120 cc of Optiray 320 IV was uneventful. Sagittal and coronal reconstructions were viewed as well as maximal intensity projections on an independent 3-D workstation. FINDINGS: No acute intracranial hemorrhage, midline shift or mass effect is present. Ventricular system is normal. Basilar cisterns are patent. There are no extra-axial collections. Nice-white differentiation is maintained. There are no findings to suggest acute dural sinus thrombosis or acute territorial infarct. A small amount of fluid within the bilateral mastoid air cells has developed since exam of April 18, 2017. There are postoperative findings within the sinuses with stable moderate mucosal thickening of the sinuses. Endotracheal tube is noted. Secretions within the pharynx may be related to intubation. The bilateral M1, M2, A1 and A2 segments are patent. There is no abrupt vessel cut off. There is no intracranial aneurysm. There is no significant stenosis. There is mild atherosclerotic plaque within the bilateral cavernous carotids. IMPRESSION: 1. No acute intracranial findings. 2. Unremarkable CTA of the head. 3. Small amount of fluid within the bilateral mastoid air cells and secretions within the pharynx which are likely related to intubation. 4. Stable mucosal thickening of the sinuses which is likely chronic. Electronically signed by: Umer Perez M.D. 04/20/2017 4:30 PM Dictated Date/Time: 04/20/2017 4:21 PM
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
[2017-04-20] MEDS: PROPOFOL IV EMULSION 10 MG/ML 100 ML VIAL IV PRN ×2 (17:14→17:15)
[2017-04-20] MEDS ORDERED: PANTOprazole INJ 80 MG in SYRINGE 0 ML IV SCH (21:00)
[2017-04-21] MEDS ORDERED: PEPTAMEN INTENSE VHP 1000ML BAG OG SCH (09:00)
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
== END 2017-04-20 17:35 | disposition short-term general hospital (02) | DRG 264 ==
LOC: C.EDB 09:57 → C.MSICU 12:31 → ENRESERV 12:38
PROVIDERS: ADMIT Family Medicine; ATTEND Internal Medicine
PROC: 0BH18EZ Insertion of Endotracheal Airway into Trachea, Via Natural or Artificial Opening Endoscopic (ICD-10-PCS; principal; 2017-04-18)
PROC: 5A1945Z Respiratory Ventilation, 24-96 Consecutive Hours (ICD-10-PCS; principal; 2017-04-18)
PROC: 0B9D8ZX Drainage of Right Middle Lung Lobe, Via Natural or Artificial Opening Endoscopic, Diagnostic (ICD-10-PCS; 2017-04-18)
PROC: 02HV33Z Insertion of Infusion Device into Superior Vena Cava, Percutaneous Approach (ICD-10-PCS; 2017-04-19)
PROC: 0B21XEZ Change Endotracheal Airway in Trachea, External Approach (ICD-10-PCS; 2017-04-19)
PROC: 0BJ08ZZ Inspection of Tracheobronchial Tree, Via Natural or Artificial Opening Endoscopic (ICD-10-PCS; 2017-04-19)
PROC: 03HY32Z Insertion of Monitoring Device into Upper Artery, Percutaneous Approach (ICD-10-PCS; 2017-04-19)
PROC: 0JPT0XZ Removal of Tunneled Vascular Access Device from Trunk Subcutaneous Tissue and Fascia, Open Approach (ICD-10-PCS; 2017-04-20)
PROC: 02PY33Z Removal of Infusion Device from Great Vessel, Percutaneous Approach (ICD-10-PCS; 2017-04-20)
DX: T80.211A Bloodstream infection due to central venous catheter, initial encounter (principal); A41.59 Other Gram-negative sepsis; J69.0 Pneumonitis due to inhalation of food and vomit; K76.6 Portal hypertension; C85.99 Non-Hodgkin lymphoma, unspecified, extranodal and solid organ sites; J96.01 Acute respiratory failure with hypoxia; N39.0 Urinary tract infection, site not specified; C64.9 Malignant neoplasm of unspecified kidney, except renal pelvis; G93.41 Metabolic encephalopathy; Z99.11 Dependence on respirator [ventilator] status; G92 Toxic encephalopathy; I85.00 Esophageal varices without bleeding; R65.20 Severe sepsis without septic shock; K92.2 Gastrointestinal hemorrhage, unspecified; T85.628A Displacement of other specified internal prosthetic devices, implants and grafts, initial encounter; I35.8 Other nonrheumatic aortic valve disorders; I25.10 Atherosclerotic heart disease of native coronary artery without angina pectoris; J44.9 Chronic obstructive pulmonary disease, unspecified; I10 Essential (primary) hypertension; T40.2X1A Poisoning by other opioids, accidental (unintentional), initial encounter; I73.9 Peripheral vascular disease, unspecified; F17.210 Nicotine dependence, cigarettes, uncomplicated; D64.9 Anemia, unspecified; F10.10 Alcohol abuse, uncomplicated; J32.9 Chronic sinusitis, unspecified; E03.9 Hypothyroidism, unspecified; Z79.82 Long term (current) use of aspirin; N40.0 Benign prostatic hyperplasia without lower urinary tract symptoms; E87.6 Hypokalemia; E83.42 Hypomagnesemia; E16.2 Hypoglycemia, unspecified; B96.1 Klebsiella pneumoniae [K. pneumoniae] as the cause of diseases classified elsewhere; Z86.19 Personal history of other infectious and parasitic diseases; Y74.2 Prosthetic and other implants, materials and accessory general hospital and personal-use devices associated with adverse incidents; Z90.5 Acquired absence of kidney; Y92.019 Unspecified place in single-family (private) house as the place of occurrence of the external cause; Y81.2 Prosthetic and other implants, materials and accessory general- and plastic-surgery devices associated with adverse incidents; Y92.239 Unspecified place in hospital as the place of occurrence of the external cause

== ENCOUNTER 2017-07-24 17:13 | Emergency (ER) | payer OTHER ==
[~2017-07-24] VITALS: Ht 180.3 cm; Wt 83.6 kg
[~2017-07-24 17:13] MED LIST changes: -AMOX875T PO; -ETOMIDATE 2 MG/ML 20 ML VIAL IV ONE; -FENTANYL CITRATE INJ 50 MCG/1 ML 2 ML VIAL IV ONE; -HYDR2.5L TOP; -LACT10SO30 PO; -MOML PO; -MTH10 PO; -SODIUM CHLORIDE 0.9% 10ML FLUSH IV ONE; -SUCCINYLCHOLINE CHLORIDE 20 MG/ML 10 ML VIAL IV ONE; -VECURONIUM BROMIDE 10 MG VIAL IV ONE
[2017-07-24 17:23] VITALS: TEMP 36.6
[2017-07-24 17:31] VITALS: Ht 180.3 cm; Wt 83.6 kg
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
[2017-07-24 18:33] LABS: HEMATOCRIT 29.1 % (42-52); HEMOGLOBIN 9.4 g/dL (14.0-18.0); MEAN CELL VOLUME 84.3 fL (80-100); MEAN CORPUSCULAR HEMOGLOBIN 27.2 pg (25-34); MEAN CORPUSCULAR HGB CONC 32.3 g/dl (32-36); MEAN PLATELET VOLUME 9.6 fL (7.4-10.4); NUCLEATED RED BLOOD CELL ABS 0.02 K/uL (0-0); PLATELET COUNT 309 K/uL (130-400); RED CELL DISTRIBUTION WIDTH CV 16.6 % (11.5-14.5); WHITE BLOOD COUNT 10.55 K/uL (4.8-10.8)
--- NOTE | 2017-07-24 18:43 | DIAGNOSTIC IMAGING REPORT ---
CT HEAD WITHOUT CONTRAST (CT) CLINICAL HISTORY: Syncope. Unresponsive patient. COMPARISON STUDY: There are second 2018 TECHNIQUE: Axial CT of the brain is performed from the vertex to the skull base. IV contrast was not administered for this examination. A dose lowering technique was utilized adhering to the principles of ALARA. CT DOSE: 767.83 mGy.cm FINDINGS: No intra or extra-axial mass lesions are visualized. There is no CT evidence of acute cortical infarction. There is no evidence of midline shift. There is no acute hemorrhage. No calvarial fractures are visualized. There is no evidence of pathologic ventricular dilatation. Postsurgical changes involve the maxillary and ethmoid sinuses. IMPRESSION: No acute intracranial findings Electronically signed by: Hal Hernandez M.D. 07/24/2017 6:42 PM Dictated Date/Time: 07/24/2017 6:40 PM
[2017-07-24 18:45] LABS: ISTAT CREATININE 1.1 mg/dl (0.6-1.3); ISTAT IONIZED CALCIUM 1.16 mmol/l (1.12-1.32); ISTAT POTASSIUM 4.1 mEq/L (3.3-5.0)
[2017-07-24 18:47] LABS: INR 1.1 (0.9-1.1); PTT PATIENT 31.1 SECONDS (21.0-31.0)
[2017-07-24] MEDS ORDERED: LACTULOSE SYRUP 20 GM/30 ML UDC PO STA (19:02)
[2017-07-24 19:07] LABS: BASO % 0.6 %; BASO ABS # 0.06 K/uL (0-0.2); EOS % 2.5 %; EOS ABS # 0.26 K/uL (0-0.5); IG# 0.04 K/uL (0.00-0.02); LYMPH % 32.8 %; LYMPH ABS # 3.46 K/uL (1.2-3.4); MONO % 21.8 %; NEUT % 41.9 %; NEUT ABS # 4.43 K/uL (1.4-6.5)
[2017-07-24] MEDS ORDERED: HYDR12.55 PO (19:39)
[2017-07-24] MEDS ORDERED: MIRT15TA2 PO (19:39)
[2017-07-24] MEDS ORDERED: SKINOIN22 TOP (19:39)
[2017-07-24] MEDS ORDERED: PLMINSR5 INH (19:39)
[2017-07-24] MEDS ORDERED: STARPOW19 PO (19:39)
[2017-07-24] MEDS ORDERED: LEVO1TAB35 PO (19:39)
[2017-07-24] MEDS ORDERED: AMOX500T PO (19:39)
[2017-07-24 19:45] LABS: ALBUMIN 2.1 gm/dl (3.4-5.0); CALCIUM 8.2 mg/dl (8.5-10.1); CREATININE 1.17 mg/dl (0.60-1.40); PHOSPHORUS 3.9 mg/dl (2.5-4.9); POTASSIUM 4.3 mmol/L (3.5-5.1); TOTAL PROTEIN 7.7 gm/dl (6.4-8.2)
[2017-07-24] MEDS ORDERED: CALCIUM CARBONATE 500 MG CHEWABLE PO STA (19:51)
[2017-07-24] MEDS ORDERED: OXYCODONE HCL IR 5 MG TAB (IMMEDIATE RELEASE) PO STA (19:51)
[2017-07-24] MEDS ORDERED: OXYC10TA80 PO (19:58)
[2017-07-24] MEDS ORDERED: NUTR-7 PO ×2 (19:58→20:02)
[2017-07-24] MEDS ORDERED: IPRASOL4 INH (20:01)
[2017-07-24] MEDS ORDERED: PRT/20 PO (20:13)
[2017-07-24] MEDS ORDERED: [UNRECOGNIZED DRUG - OTHER] PO (20:13)
[2017-07-24 20:38] VITALS: BP 150/88; PULSE 78; O2SAT 94
== END 2017-07-24 20:43 | disposition home or self-care (01) ==
LOC: EDBD 17:13 → C.EDB 17:15
DX: R55 Syncope and collapse (principal); D64.9 Anemia, unspecified; E72.20 Disorder of urea cycle metabolism, unspecified; E83.51 Hypocalcemia; I25.10 Atherosclerotic heart disease of native coronary artery without angina pectoris; J44.9 Chronic obstructive pulmonary disease, unspecified; E78.5 Hyperlipidemia, unspecified; I10 Essential (primary) hypertension; E03.9 Hypothyroidism, unspecified; I73.9 Peripheral vascular disease, unspecified; Z85.72 Personal history of non-Hodgkin lymphomas; R05 Cough; K59.00 Constipation, unspecified; Z87.01 Personal history of pneumonia (recurrent); Z79.899 Other long term (current) drug therapy; K21.9 Gastro-esophageal reflux disease without esophagitis; Z85.528 Personal history of other malignant neoplasm of kidney; G62.9 Polyneuropathy, unspecified; F17.210 Nicotine dependence, cigarettes, uncomplicated; Z79.82 Long term (current) use of aspirin; Z88.1 Allergy status to other antibiotic agents; Z88.8 Allergy status to other drugs, medicaments and biological substances

== ENCOUNTER → 2017-10-19 | Outpatient (CLI) | payer OTHER ==
[~2017-10-19] MED LIST changes: -AMLO-110 PO; +AMLO5TAB3 PO; -ATRINS NEB; +BUME1TAB PO; -CETI10TA84 PO; -CICL160A INTNAS; -DIPH25CA5 PO; +FERR325T18 PO; -FLUT1INH PO; -FLUT27.53 INTNAS; -FNTTP50 TD; +HYDR12.55 PO; -HYZ/50125 PO; +IPRA-64 INH; +LACT10SO30 PO; -METH750T PO; +MIRT15TA2 PO; -MIRT30TA2 PO; -ONDA4TAB46 PO; -OXYC-88 PO; +OXYC20TA32 PO; +PLMINSR5 INH; -PRLSR20 PO; +PRT/20 PO; +STARPOW19 PO; -TEST1INJ2 SQ; +[UNRECOGNIZED DRUG - OTHER] PO
--- NOTE | 2017-10-19 13:52 | DIAGNOSTIC IMAGING REPORT ---
RIGHT LOWER EXTREMITY VENOUS DOPPLER HISTORY: Right leg PAIN/SWELLING, R/O DVT COMPARISON STUDY: Lower extremity venous Doppler 09/19/2017. FINDINGS: There is normal compressibility, flow, and augmentation within the right lower extremity deep venous system. Specifically, no areas of thrombosis within the superficial veins of the right thigh. IMPRESSION: No DVT within the right lower extremity. Electronically signed by: Maycol Sanz M.D. 10/19/2017 1:50 PM Dictated Date/Time: 10/19/2017 1:50 PM
== END | disposition home or self-care (01) ==
LOC: C.ULTRBC 12:56
PROVIDERS: ATTEND Internal Medicine
DX: I73.9 Peripheral vascular disease, unspecified (principal); M79.604 Pain in right leg; M79.89 Other specified soft tissue disorders; C64.9 Malignant neoplasm of unspecified kidney, except renal pelvis; C85.90 Non-Hodgkin lymphoma, unspecified, unspecified site; K74.60 Unspecified cirrhosis of liver

== ENCOUNTER 2018-10-16 13:50 | Inpatient (IN) ==
[2018-10-16] MEDS ORDERED: SODIUM CHLORIDE 0.9% 1000ML 1,000 ML IV SCH ×2 (14:45→17:45)
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
[2018-10-16 15:50] LABS: Basophils # (auto) 0.05 K/uL (0-0.2); Basophils % (auto) 0.6 %; Eosinophils # (auto) 0.06 K/uL (0-0.5); Eosinophils % (auto) 0.7 %; Hematocrit (blood only) 30.3 % (42-52); Hemoglobin 10.1 g/dL (14.0-18.0); Immature Granulocytes # (auto) 0.01 K/uL (0.00-0.02); Immature Granulocytes % (auto) 0.1 %; Lymphocytes # (auto) 3.24 K/uL (1.2-3.4); Lymphocytes % (auto) 39.5 %; Mean Corpuscular Hgb Conc 33.3 g/dL (32-36); Mean Corpuscular Volume 91.5 fL (80-100); Mean Platelet Volume 10.8 fL (7.4-10.4); Monocytes # (auto) 1.72 K/uL (0.11-0.59); Neutrophils # (auto) 3.12 K/uL (1.4-6.5); Neutrophils % (auto) 38.1 %; Platelet Count 236 K/uL (130-400); RDW Coefficient of Variation 20.4 % (11.5-14.5); Red Blood Count 3.31 M/uL (4.7-6.1)
[2018-10-16 16:11] LABS: Anisocytosis Present; Target Cells 1+
[2018-10-16 16:13] LABS: Alanine Aminotransferase 30 U/L (12-78); Aspartate Aminotransferase 49 U/L (15-37); BUN Creatinine Ratio 16.9 (10-20); Blood Urea Nitrogen 23 mg/dl (7-18); Calcium 7.8 mg/dl (8.5-10.1); Carbon Dioxide 31 mmol/L (21-32); Chloride 105 mmol/L (98-107); Creatinine Clr Calc Pharmacy 56.5 ml/min; Est GFR (African American) 61.9; Est GFR (Non-African American) 53.4; Glucose 97 mg/dl (70-99); Potassium 3.1 mmol/L (3.5-5.1); Sodium 140 mmol/L (136-145)
[2018-10-16 16:21] LABS: Albumin Globulin Ratio 0.4 (0.9-2); Alkaline Phosphatase 88 U/L (45-117); Bilirubin,Total 0.6 mg/dl (0.2-1); Creatine Kinase 198 U/L (39-308); Globulin 5.5 gm/dl (2.5-4.0); Total Protein 7.5 gm/dl (6.4-8.2); Troponin I < 0.015 ng/ml (0-0.045)
[2018-10-16 16:33] LABS: INR 1.2 (0.9-1.1); Prothrombin Time 12.6 Seconds (9.0-12.0)
[2018-10-16 16:36] LABS: T4 Free Thyroxine 1.39 ng/dl (0.8-1.6)
[2018-10-16] MEDS ORDERED: IOVERSOL 100ml IV PRN (16:36)
--- NOTE | 2018-10-16 16:59 | CT Scan Report ---
CT SCAN OF THE ABDOMEN AND PELVIS WITH IV CONTRAST CLINICAL HISTORY: Generalized abdominal pain. COMPARISON STUDY: Abdominal CT dated 04/28/2018. TECHNIQUE: Following the IV administration of 94 cc of Optiray 320, CT scan of the abdomen and pelvi s is performed from the lung bases to the proximal femora. Images are reviewed in the axial, sagittal , and coronal planes. IV contrast was administered without complication. A dose lowering technique wa s utilized adhering to the principles of ALARA. The examination is degraded by a paucity of intra-abd ominal fat. CT DOSE: 459.11 mGycm FINDINGS: Lung bases: The heart is normal in size and without pericardial effusion. Advanced emphysematous maravilla ge is noted at the lung bases. There is dependent atelectasis. No airspace consolidation or pleural e ffusion is identified. A metallic foreign body is noted in the left lower lobe. There is a moderate h iatal hernia. Circumferential wall thickening is suggested in the distal esophagus. Esophageal varice s are noted. Liver: The contrast-enhanced liver is cirrhotic in morphology and heterogeneous in attenuation. There is no intrahepatic biliary ductal dilatation. The hepatic veins and portal veins are patent. Gallbladder: There are calcified gallstones, with no CT evidence of acute cholecystitis. Spleen: Not identified and presumed surgically absent. Pancreas: Atrophic and grossly unremarkable. Adrenal glands: Unremarkable. Kidneys: The contrast enhanced kidneys demonstrate mild cortical atrophy and are without hydronephros is. The kidneys enhance symmetrically. There are 2 right renal cysts measuring up to 2.6 cm. A 6 cm n onobstructing calculus is seen in the right upper pole. Metallic foreign bodies are present around th e left kidney. Abdominal vasculature: There is advanced atherosclerotic calcification and mild ectasia of the abdomi nal aorta. Bowel: The gastric mucosa appears thickened and hyperemic. There is rectosigmoid fecal impaction and moderate constipation. No bowel obstruction is seen. Mild wall thickening and edema with mucosal hype remia is suggested involving the left colon. The appendix is not visualized. Peritoneum: There is no intraperitoneal free air or abdominal ascites. There is mild diffuse mesenter ic edema. A ventral surgical scar is noted. Lymphadenopathy: None. Pelvic viscera: The bladder is distended and grossly unremarkable. The prostate gland is enlarged and heterogeneous, noting median lobe hypertrophy. Skeletal structures: The skeletal structures are osteopenic. There is mild to moderate lumbosacral sp ondylosis as well as scoliosis. No lytic or blastic lesions are seen. Healing fracture is suggested i n the greater trochanter of the right femur. Soft tissues: The patient is cachectic. Numerous metallic foreign bodies are present throughout the a bdominal wall. There is body wall edema. IMPRESSION: 1. Cirrhotic liver morphology. 2. Esophageal varices indicate portal hypertension. 3. The spleen is not identified and presumed surgically absent. 4. Advanced emphysema. 5. There is rectosigmoid fecal impaction and moderate constipation. No bowel obstruction is seen. 6. Mild wall thickening and edema with mucosal hyperemia is suggested involving the left colon. Corre late clinically for evidence of a mild nonspecific colitis. 7. Body wall edema and mesenteric edema suggest fluid overload. 8. There is a moderate hiatal hernia. Wall thickening is seen in the distal esophagus. Correlate clin ically for evidence of esophagitis. 9. The gastric mucosa appears thickened and hyperemic. This is not well assessed by CT. Correlate cli nically for evidence of gastritis. 10. Cholelithiasis and right-sided nephrolithiasis. 11. The bladder is distended but otherwise grossly unremarkable. 12. Numerous left-sided metallic foreign bodies are noted. 13. Additional findings as above. Electronically signed by: Guevara Bryson M.D. 10/16/2018 4:57 PM
[2018-10-16] MEDS ORDERED: MoRPHine SULFATE 4 MG/ML 1 ML CARP\\VIAL IV STA (17:36)
[2018-10-16] MEDS ORDERED: ASPIRIN CHEW 324 MG PO STA (17:42)
[2018-10-16] MEDS ORDERED: POTASSIUM CHLORIDE 20 MEQ TABCR PO STA (18:26)
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
[2018-10-16] MEDS ORDERED: PIPERACILL/TAZOBAC CONSULT ACTIVE PRN (20:38)
[2018-10-16] MEDS ORDERED: ACETAMINOPHEN 325 MG TAB PO PRN (20:38)
[2018-10-16] MEDS ORDERED: ALUMINUM/MAGNESIUM SUSP 30 ML UDC PO PRN (20:38)
[2018-10-16] MEDS ORDERED: MAGNESIUM HYDROXIDE SUSP 30 ML UDC PO PRN (20:38)
[2018-10-16] MEDS: ALBUT/IPRATROP 3MG/0.5MG NEB 3 ML VIAL NEB SCH (20:51)
[2018-10-16] MEDS: BUDESONIDE 0.5 MG/2 ML VIAL (PULMICORT) INH SCH (20:51)
[2018-10-16] MEDS: SODIUM CHLORIDE 0.9% 1000ML 1,000 ML IV SCH (21:52)
[2018-10-16] MEDS: OXYCODONE HCL 40 MG TABCR (OXYCONTIN) PO SCH (21:53)
[2018-10-16] MEDS: ATORVASTATIN 20 MG TAB PO SCH (21:53)
[2018-10-16] MEDS: methylPREDNISolone 40 MG in SYRINGE 0 ML IV SCH (21:53)
[2018-10-16] MEDS: GABAPENTIN 600 MG TAB PO SCH (21:53)
[2018-10-16] MEDS ORDERED: PIPERACILLIN/TAZOBACTAM 3.375 GM in DEXTROSE 5% 100 ML IV ONE (22:00)
[2018-10-16] MEDS: HEPARIN SOD 5,000 UNIT/0.5 ML VIAL SQ SCH (22:25)
[2018-10-16] MEDS: MIRTAZAPINE TAB 15 MG TAB PO SCH (22:26)
[2018-10-16] MEDS: TAMSULOSIN HCL 0.4 MG CAP PO SCH (22:26)
[2018-10-16] MEDS: AMMONIUM LACTATE 12% LOTION 225 GM BTL EXT SCH (22:40)
--- NOTE | 2018-10-17 00:18 | Ultrasound Report ---
ULTRASOUND BILATERAL LOWER EXTREMITY VENOUS CLINICAL HISTORY: Lower extremity edema. COMPARISON STUDY: Bilateral lower extremity venous ultrasound dated 09/19/2017. TECHNIQUE: Real-time, grayscale, and color Doppler sonography of the deep veins of the right and left lower extremity was performed from the inguinal crease to the calf. Compression and augmentation wer e utilized. FINDINGS: There is no sonographic evidence of deep venous thrombosis identified in the right or left lower extremity. Slow flow is noted within the common femoral veins. The common femoral, superficial femoral, and popliteal veins are patent and normally compressible bilaterally. The greater saphenous vein and the profunda femoris vein at the junction with the common femoral vein are clear in both leg s. The visualized calf veins are patent bilaterally. Soft tissue edema is present in both legs. A pop liteal cyst on the left measures 3.8 x 1.3 x 3.0 cm. IMPRESSION: 1. There is no sonographic evidence of deep venous thrombosis identified in the right or left lower e xtremity. 2. There is a small left-sided popliteal cyst. Electronically signed by: Guevara Bryson M.D. 10/17/2018 12:16 AM
[2018-10-17] MEDS: PIPERACILLIN/TAZOBACTAM 3.375 GM in DEXTROSE 5% 100 ML IV SCH ×3 (01:02→18:58)
[2018-10-17 03:36] LABS: Mean Corpuscular Hgb Conc 33.3 g/dL (32-36); Mean Platelet Volume 11.2 fL (7.4-10.4); Nucleated RBC # (auto) 0.06 K/uL (0-0); Nucleated RBC % (auto) 0.9 %; Platelet Count 242 K/uL (130-400); RDW Coefficient of Variation 20.1 % (11.5-14.5); Red Blood Count 3.26 M/uL (4.7-6.1); White Blood Count 6.29 K/uL (4.8-10.8)
[2018-10-17 04:02] LABS: BUN Creatinine Ratio 16.3 (10-20); Blood Urea Nitrogen 20 mg/dl (7-18); Calcium 7.5 mg/dl (8.5-10.1); Carbon Dioxide 29 mmol/L (21-32); Chloride 107 mmol/L (98-107); Creatinine Clr Calc Pharmacy 56.2 ml/min; Est GFR (African American) 70.5; Est GFR (Non-African American) 60.8; Glucose 125 mg/dl (70-99); Sodium 142 mmol/L (136-145)
[2018-10-17 04:06] LABS: Troponin I < 0.015 ng/ml (0-0.045)
[2018-10-17] MEDS: OXYCODONE HCL 40 MG TABCR (OXYCONTIN) PO SCH ×3 (05:47→21:15)
[2018-10-17] MEDS: HEPARIN SOD 5,000 UNIT/0.5 ML VIAL SQ SCH ×3 (05:47→21:10)
[2018-10-17] MEDS: methylPREDNISolone 40 MG in SYRINGE 0 ML IV SCH ×3 (05:48→21:10)
[2018-10-17] MEDS: SODIUM CHLORIDE 0.9% 1000ML 1,000 ML IV SCH (05:48)
[2018-10-17] MEDS: LEVOTHYROXINE SODIUM 200 MCG TABLET PO SCH ×2 (05:50→05:51)
[2018-10-17] MEDS: LEVOTHYROXINE SODIUM 75 MCG TABLET PO SCH ×2 (05:50→05:51)
[2018-10-17] MEDS: ALBUT/IPRATROP 3MG/0.5MG NEB 3 ML VIAL NEB SCH ×4 (07:20→19:31)
[2018-10-17] MEDS: BUDESONIDE 0.5 MG/2 ML VIAL (PULMICORT) INH SCH ×2 (07:26→19:31)
[2018-10-17] MEDS ORDERED: POTASSIUM CHLORIDE 10 MEQ TABCR PO STA (08:01)
[2018-10-17] MEDS ORDERED: NSS + 20MEQ KCL 20 MEQ/1,000 ML BAG IV ONE (08:30)
[2018-10-17] MEDS ORDERED: DOCUSATE SODIUM/SENNA 50/8.6MG TAB PO SCH (09:00)
[2018-10-17] MEDS ORDERED: POLYETHYLENE (MIRALAX) 17 GM PACK PO SCH (09:00)
[2018-10-17] MEDS: SUCRALFATE 1 GM TAB PO SCH ×3 (09:05→16:47)
[2018-10-17] MEDS: ASPIRIN 81 MG ECTAB PO SCH (09:06)
[2018-10-17] MEDS: PANTOprazole 40 MG TAB PO SCH (09:06)
[2018-10-17] MEDS: ISOSORBIDE MONO EXTENDED REL 30 MG TABCR PO SCH (09:06)
[2018-10-17] MEDS: AMLODIPINE BESYLATE 5 MG TAB PO SCH (09:06)
[2018-10-17] MEDS: GABAPENTIN 600 MG TAB PO SCH ×2 (09:06→21:08)
[2018-10-17] MEDS: AMMONIUM LACTATE 12% LOTION 225 GM BTL EXT SCH ×2 (11:21→21:08)
[2018-10-17] MEDS ORDERED: POTASSIUM CHLORIDE 10 MEQ TABCR PO ONE (14:00)
--- NOTE | 2018-10-17 14:02 | Gastrointestinal Consultation ---
Date of Consultation October 17, 2018 Assessment & Plan (1) Abdominal pain: Patient has significant retained stool on imaging with possible impaction. He needs to start a good bowel regimen and continue this on a daily basis. He has had one BM since admission and has been placed on Miralax once daily. Will increase this to BID at least initially, and add a twice daily stool softener. Pantoprazole has been increased to 40mg and he has been placed on carafate. Please continue to correct electrolyte imbalance. Further recommendations pending course. (2) Abnormal CT scan, gastrointestinal tract: Supervising Physician Co-Signing Physician Notes Late entry: Patient was seen and examined on 10/17 with Richard izaguirre PA-C whose note reflects our findings and plan. History of Present Illness Reason for Consultation: Abdominal pain with questionable colitis Requesting Physician: Maykel Macedo MD Attending Physician: Maykel Macedo MD History of Present Illness 68 year old male with a hx of COPD, renal CA s/p partial nephrectomy, MALT lymphoma, and ETOH cirrhosis with esophageal varices. He is an inmate and was admitted with weakness, lethargy, cough, and a 15 pound weight loss in the past few weeks. He reports LLQ and epigastric pain for about the past year or longer, present fairly constantly, worse with movement and improved somewhat with passing stool. He reports BMs once every 5 days, with soft stool and BRBPR, again present for about the past year. Stool is brown in color. He has not been on a regular bowel regimen as an OP. For the past few months, he reports that the pain has increased, and he has had n/v about once every 3 days, worse post prandially. If he does not eat, his symptoms are better. As such, he has not been eating much in the recent past and has lost about 15 pounds. He takes pantoprazole 20mg once daily. Labs show a normal WBC, HGB of 10.0 (baseline 8-10), PLT of 242, potassium of 3.0, AST of 49 but otherwise normal LFTs. NH3 was mildly elevated at 48. Last EGD was 08/07/18 - medium HH and gastritis Last colonoscopy was 01/31/18 - restricted mobility of the colon. Unable to advance beyond the mid-transverse colon. Distal rectum and anal verge were normal on retroflextion. Allergies Allergy/AdvReac Type Severity Reaction Status Date / Time YONNY Inhibitors Allergy Intermediate LIPS SWELL Verified 10/16/18 15:30 Cipro Allergy Mild PER RECORD Verified 09/19/17 13:41 ciprofloxacin Allergy Mild PER RECORD Verified 10/16/18 15:30 lisinopril Allergy Unknown UNKNOWN Verified 10/16/18 15:30 Home Medications Home Medications Medication Instructions Recorded Confirmed Type acetylcysteine 1 ml INHALATION BID 03/07/18 10/16/18 History ammonium lactate 1 applic TOPICAL BID 03/07/18 10/16/18 History aspirin [Aspirin Childrens] 81 mg PO QAM 03/07/18 10/16/18 History atorvastatin 20 mg PO HS 03/07/18 10/16/18 History budesonide 0.5 mg INHALATION BID 03/07/18 10/16/18 History ipratropium-albuterol 3 ml INHALATION TID 03/07/18 10/16/18 History isosorbide mononitrate 30 mg PO QAM 03/07/18 10/16/18 History mirtazapine 30 mg PO HS 03/07/18 10/16/18 History oxycodone 120 mg PO TID 03/07/18 10/16/18 History pantoprazole 20 mg PO QAM 03/07/18 10/16/18 History sucralfate 1 g PO AC 03/07/18 10/16/18 History tamsulosin 0.4 mg PO HS 03/07/18 10/16/18 History vits A and D-white pet-lanolin [A 1 applic TOPICAL BID 03/07/18 10/16/18 History and D (eyal, pet)] amlodipine 5 mg PO QAM 04/28/18 10/16/18 History Ensure 1 ea PO TID 10/16/18 10/16/18 History Gentamicin Nasal Lavage 0 mg NA .Q 10 DAYS. 10/16/18 10/16/18 History Gentamicin Nasal Lavage 0 mg NA BID 10/16/18 10/16/18 History Saline Nasal Rinse 0 mg NA DAILY 10/16/18 10/16/18 History furosemide [Lasix] 40 mg PO QAM 10/16/18 10/16/18 History gabapentin 600 mg PO BID 10/16/18 10/16/18 History guaifenesin [Mucosa] 1,200 mg PO BID 10/16/18 10/16/18 History levothyroxine 75 mcg PO QAM 10/16/18 10/16/18 History levothyroxine 200 mcg PO QAM 10/16/18 10/16/18 History cefuroxime axetil 500 mg PO BID 5 Days #10 tab 10/18/18 Rx docusate sodium 100 mg PO BID 30 Days #60 cap 10/18/18 Rx metronidazole [Flagyl] 500 mg PO Q8H 5 Days #15 tab 10/18/18 Rx polyethylene glycol 3350 [Miralax] 17 g PO DAILY PRN #30 ea 10/18/18 Rx prednisone 10 mg PO UD #20 tab 10/18/18 Rx Patient History Medical History Chronic pain (Chronic) Cirrhosis (Chronic) Esophageal varices (Chronic) Portal hypertension (Chronic) Malignant neoplasm of kidney (Chronic) 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) Anemia (Chronic) Hypothyroidism (Chronic) HLD (hyperlipidemia) (Chronic) Neuropathy (Chronic) HTN (hypertension) (Chronic) CAD (coronary artery disease) (Chronic) PVD (peripheral vascular disease) (Chronic) Chronic sinusitis (Chronic) COPD (chronic obstructive pulmonary disease) (Chronic) GERD (gastroesophageal reflux disease) (Chronic) Surgical History History of partial nephrectomy (Chronic) History of splenectomy (Chronic) History of appendectomy (Chronic) Family History Mother Hypothyroidism Father Myocardial infarction Social History Preferred Language: Hungarian Communication Ability: Effective [employer]el [employer] Pipe [employer] Required: No Beliefs That Will Affect Care: None Current Living Situation: Other Current Living Situation Comment: Senior Care current occupational status: unemployed Smoking Status: Former smoker Tobacco Type: cigarettes ; Cigarettes Per Day: 12 ; Do You Dip or Chew Tobacco: No ; Smoking End Date: 10/15/2018 ; Second Hand Exposure: Yes ; Tobacco Cessation Education Requested by Patient: No Hx Alcohol Use: No Hx Substance Use: No Review of Systems Constitutional: no fever, no chills, no fatigue and no weight loss Eyes: no eye pain and no worsening vision Ear, Nose, Mouth, Throat: no ear pain, no hearing loss, no nasal congestion and no sore throat Respiratory: + cough; no chest congestion and no wheezing Cardiovascular: + chest pain (occasional); no dyspnea Gastrointestinal: as per Subjective / HPI Genitourinary: + decreased urination Musculoskeletal: no joint pain Integumentary: no rash and no pruritus Neurologic: no tingling, no numbness and no dizziness Psychiatric: no suicidal ideation and no confusion Endocrine: no cold intolerance and no heat intolerance Hematologic / Lymphatic: no easy bleeding and no easy bruising Allergy / Immunological: no problem reported Physical Exam Constitutional: no acute distress Eyes: + anicteric sclerae ENMT: external ear and nose normal, oropharynx normal Neck: normal visual inspection Respiratory: coarse expiratory breath sounds Cardiovascular: Rate/Rhythm: regular rate and regular rhythm Heart Sounds: no murmur Gastrointestinal (Abdomen): Inspection/Auscultation: + hypoactive bowel sounds; abdomen not distended Percussion/Palpation: + abdomen tender (RLQ and epigastrium) and abdomen soft Musculoskeletal: Head/Neck/Chest: normocephalic and head atraumatic Skin: + dry skin; no rashes Neurologic: moves all extremities; no focal motor deficits Psychiatric: Orientation: alert and oriented x 3 Results & Data Vital Signs (Past 12 Hours) Vital Signs Temp Pulse Pulse Resp BP Pulse Ox 10/17/18 11:17 75 16 92 10/17/18 11:08 36.8 C 76 12 110/71 90 10/17/18 08:00 75 10/17/18 07:20 66 14 93 10/17/18 07:05 36.7 C 66 14 121/75 93 10/17/18 04:07 36.7 C 80 24 116/74 100 Laboratory Results - last 24 hr 10/16/18 10/16/18 10/16/18 15:40 15:40 15:40 WBC 8.20 RBC 3.31 L Hgb 10.1 L Hct 30.3 L MCV 91.5 MCH 30.5 MCHC 33.3 RDW Std Deviation 68.0 H RDW Coeff of Alin 20.4 H Plt Count 236 MPV 10.8 H Immature Gran % (Auto) 0.1 Neut % (Auto) 38.1 Lymph % (Auto) 39.5 [place] % (Auto) 21.0 Eos % (Auto) 0.7 Baso % (Auto) 0.6 Immature Gran # (Auto) 0.01 Neut # (Auto) 3.12 Lymph # (Auto) 3.24 [place] # (Auto) 1.72 H Eos # (Auto) 0.06 Baso # (Auto) 0.05 Absolute Nucleated RBC Nucleated RBC % (auto) Anisocytosis Present Target Cells 1+ PT Cancelled INR Cancelled Sodium 140 Potassium 3.1 L Chloride 105 Carbon Dioxide 31 Anion Gap 4.0 BUN 23 H Creatinine 1.37 Est Cr Clr Drug Dosing 56.5 Est GFR ( Amer) 61.9 Est GFR (Non-Af Amer) 53.4 BUN/Creatinine Ratio 16.9 Glucose 97 Lactate Calcium 7.8 L Magnesium 2.0 Total Bilirubin 0.6 AST 49 H ALT 30 Alkaline Phosphatase 88 Ammonia Total Creatine Kinase 198 Troponin I < 0.015 Total Protein 7.5 Albumin 2.0 L Globulin 5.5 H Albumin/Globulin Ratio 0.4 L Procalcitonin TSH 14.900 H Free T4 1.39 Nasal Screen MRSA (PCR) 10/16/18 10/16/18 10/16/18 15:56 15:56 18:23 WBC RBC Hgb Hct MCV MCH MCHC RDW Std Deviation RDW Coeff of Alin Plt Count MPV Immature Gran % (Auto) Neut % (Auto) Lymph % (Auto) [place] % (Auto) Eos % (Auto) Baso % (Auto) Immature Gran # (Auto) Neut # (Auto) Lymph # (Auto) [place] # (Auto) Eos # (Auto) Baso # (Auto) Absolute Nucleated RBC Nucleated RBC % (auto) Anisocytosis Target Cells PT 12.6 H INR 1.2 H Sodium Potassium Chloride Carbon Dioxide Anion Gap BUN Creatinine Est Cr Clr Drug Dosing Est GFR ( Amer) Est GFR (Non-Af Amer) BUN/Creatinine Ratio Glucose Lactate 1.1 Calcium Magnesium Total Bilirubin AST ALT Alkaline Phosphatase Ammonia Total Creatine Kinase Troponin I Total Protein Albumin Globulin Albumin/Globulin Ratio Procalcitonin 0.06 TSH Free T4 Nasal Screen MRSA (PCR) 10/16/18 10/16/18 10/16/18 18:35 18:35 20:47 WBC RBC Hgb Hct MCV MCH MCHC RDW Std Deviation RDW Coeff of Alin Plt Count MPV Immature Gran % (Auto) Neut % (Auto) Lymph % (Auto) [place] % (Auto) Eos % (Auto) Baso % (Auto) Immature Gran # (Auto) Neut # (Auto) Lymph # (Auto) [place] # (Auto) Eos # (Auto) Baso # (Auto) Absolute Nucleated RBC Nucleated RBC % (auto) Anisocytosis Target Cells PT INR Sodium Potassium Chloride Carbon Dioxide Anion Gap BUN Creatinine Est Cr Clr Drug Dosing Est GFR ( Amer) Est GFR (Non-Af Amer) BUN/Creatinine Ratio Glucose Lactate 0.8 Calcium Magnesium Total Bilirubin AST ALT Alkaline Phosphatase Ammonia 48.0 H Total Creatine Kinase Troponin I < 0.015 Total Protein Albumin Globulin Albumin/Globulin Ratio Procalcitonin TSH Free T4 Nasal Screen MRSA (PCR) 10/16/18 10/17/18 10/17/18 22:00 02:54 02:54 WBC 6.29 RBC 3.26 L Hgb 10.0 L Hct 30.0 L MCV 92.0 MCH 30.7 MCHC 33.3 RDW Std Deviation 67.0 H RDW Coeff of Alin 20.1 H Plt Count 242 MPV 11.2 H Immature Gran % (Auto) Neut % (Auto) Lymph % (Auto) [place] % (Auto) Eos % (Auto) Baso % (Auto) Immature Gran # (Auto) Neut # (Auto) Lymph # (Auto) [place] # (Auto) Eos # (Auto) Baso # (Auto) Absolute Nucleated RBC 0.06 H Nucleated RBC % (auto) 0.9 Anisocytosis Target Cells PT INR Sodium 142 Potassium 3.0 L Chloride 107 Carbon Dioxide 29 Anion Gap 6.0 BUN 20 H Creatinine 1.23 Est Cr Clr Drug Dosing 56.2 Est GFR ( Amer) 70.5 Est GFR (Non-Af Amer) 60.8 BUN/Creatinine Ratio 16.3 Glucose 125 H Lactate Calcium 7.5 L Magnesium Total Bilirubin AST ALT Alkaline Phosphatase Ammonia Total Creatine Kinase Troponin I < 0.015 Total Protein Albumin Globulin Albumin/Globulin Ratio Procalcitonin TSH Free T4 Nasal Screen MRSA (PCR) Negative CTAP: IMPRESSION: 1. Cirrhotic liver morphology. 2. Esophageal varices indicate portal hypertension. 3. The spleen is not identified and presumed surgically absent. 4. Advanced emphysema. 5. There is rectosigmoid fecal impaction and moderate constipation. No bowel obstruction is seen. 6. Mild wall thickening and edema with mucosal hyperemia is suggested involving the left colon. Correlate clinically for evidence of a mild nonspecific colitis. 7. Body wall edema and mesenteric edema suggest fluid overload. 8. There is a moderate hiatal hernia. Wall thickening is seen in the distal esophagus. Correlate clinically for evidence of esophagitis. 9. The gastric mucosa appears thickened and hyperemic. This is not well assessed by CT. Correlate clinically for evidence of gastritis. 10. Cholelithiasis and right-sided nephrolithiasis. 11. The bladder is distended but otherwise grossly unremarkable. 12. Numerous left-sided metallic foreign bodies are noted. 13. Additional findings as above.
[2018-10-17] MEDS: SODIUM CHLORIDE 0.65% NA SOLN 45 ML (OCEAN) SCH ×3 (14:34→21:26)
--- NOTE | 2018-10-17 15:20 | Hospitalist Progress Note ---
Date of Service October 17, 2018 Assessment & Plan (1) Weakness: (2) COPD exacerbation: (3) JAMISON (acute kidney injury): (4) Colitis: Patient is a 68 yr old male with H/O COPD, alcoholic liver cirrhosis with portal hypertension and esophageal varices, malt lymphoma, chronic pain on chronic oxycodone therapy, history of left renal cell CA status post partial nephrectomy, history of splenectomy, HLD, hypothyroidism, GERD, anemia, chronic sinusitis who presents to [facility] ED from [facility] due to multiple vague complaints including weakness, lethargy, cough. Abdominal Pain Likely opioid induced constipation CT abdomen suggestive of rectosigmoid fecal impaction and moderate constipation, no bowel obstruction. Also findings of possible mild nonspecific colitis Blood/Stool culture: pending Could have overflow diarrhea Continue empiric IV antibiotics Appreciate GI Input Continue bowel regimen Continue IV fluids Minimize narcotic use as able Acute on chronic COPD exacerbation CXR:Chronic change. No acute process. Continue IV Solu-Medrol, nebs Also on IV antibiotics Blood Cx:pending JAMISON Cr: 1.45>>>1.23 Continue to hold lasix Monitor renal function Continue IV fluids (5) Hypokalemia: Hypokalemia: Likely due to GI loses Replace and monitor electrolytes as needed (6) Acute electrocardiogram changes: EKG reveals new T wave inversions in V5 and V6 Patient denies chest pain or shortness of breath Troponin X 3: negative Last Stress Test in August 20, 2018 We will consider further work-up if patient develops any chest pain (7) Cirrhosis: Patient with alcoholic liver cirrhosis CT scan reveals evidence of cirrhosis, portal hypertension and esophageal varices Continue PPI no evidence of ascites or decompensated cirrhosis (8) Chronic pain: Patient on high-dose oxycodone 120 mg 3 times daily He is also on Neurontin, scheduled Benadryl and per care home MAR has been getting Phenergan 3 times daily routinely Hold Benadryl and Phenergan to avoid further sedating medications Consider decreasing Oxycodone dose if able (9) Weight loss: Reported per [facility] 15lb in 2 weeks Further work up as outpatient (10) HTN (hypertension): Stable Continue amlodipine (11) Neuropathy: Continue gabapentin (12) Hypothyroidism: TSH 14.9 but free T4 WNL 1.39 on Levothyroxine 275mcg daily Needs repeat thyroid function test as outpatient (13) HLD (hyperlipidemia): Continue statin (14) Anemia: Hb stable No signs or symptoms of bleeding at this time Monitor CBC (15) 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 Sinha at [facility] Subjective Patient is seen and examined at bedside Loose BM this morning--likely overflow diarrhea Complains of generalized body ache and some abd pain States having cough with brownish expectoration Denies any chest pain, shortness of breath, dizziness Guards at bedside Review of Systems Review of Systems: All systems reviewed & are unremarkable except as noted in HPI & below Physical Exam Physical Exam: Physical Exam: Vitals signs as noted above General Appearance:Moderately built and nourished, no apparent distress Head: normocephalic, Atraumatic Eyes: normal inspection, EOMI Neck: supple, Trachea midline Respiratory/Chest: Decreased breath sounds, + Expiratory wheezes Cardiovascular: S1, S2, No murmur Abdomen/GI:Soft, mild tender LLQ, Bowel sounds present Extremities/Musculoskelatal:normal inspection, no edema, Chronic venous stasis changes Neurologic/Psych:AAOX3, grossly no focal neurological deficits Skin: normal color, warm Results & Data Vital Signs (Past 12 Hours) Vital Signs Temp Pulse Pulse Resp BP Pulse Ox 10/17/18 11:17 75 16 92 10/17/18 11:08 36.8 C 76 12 110/71 90 10/17/18 08:00 75 10/17/18 07:20 66 14 93 10/17/18 07:05 36.7 C 66 14 121/75 93 10/17/18 04:07 36.7 C 80 24 116/74 100 Laboratory Results Short CBC 10/16/18 10/17/18 Range/Units 15:40 02:54 WBC 8.20 6.29 (4.8-10.8) K/uL Hgb 10.1 L 10.0 L (14.0-18.0) g/dL Hct 30.3 L 30.0 L (42-52) % Plt Count 236 242 (130-400) K/uL BMP 10/16/18 10/17/18 15:40 02:54 Sodium 140 142 Potassium 3.1 L 3.0 L Chloride 105 107 Carbon Dioxide 31 29 BUN 23 H 20 H Creatinine 1.37 1.23 Glucose 97 125 H Calcium 7.8 L 7.5 L Cardiac Enzymes 10/16/18 10/16/18 10/17/18 Range/Units 15:40 20:47 02:54 Total Creatine Kinase 198 (39-308) U/L Troponin I < 0.015 < 0.015 < 0.015 (0-0.045) ng/ml Liver Function 10/16/18 Range/Units 15:40 Total Bilirubin 0.6 (0.2-1) mg/dl AST 49 H (15-37) U/L ALT 30 (12-78) U/L Alkaline Phosphatase 88 (45-117) U/L Albumin 2.0 L (3.4-5.0) gm/dl (1) Chronic pain Chronic pain type: other chronic pain Qualified Code(s): G89.29 - Other chronic pain (2) Anemia Anemia type: unspecified type Qualified Code(s): D64.9 - Anemia, unspecified
[2018-10-17] MEDS: ACETYLCYSTEINE 20% INHAL SOLN ***DISPENSED BY RESP. INH SCH (19:31)
[2018-10-17] MEDS: DOCUSATE SODIUM 100 MG CAP PO SCH (21:02)
[2018-10-17] MEDS: POLYETHYLENE (MIRALAX) 17 GM PACK PO SCH (21:02)
[2018-10-17] MEDS: TAMSULOSIN HCL 0.4 MG CAP PO SCH (21:08)
[2018-10-17] MEDS: ATORVASTATIN 20 MG TAB PO SCH (21:08)
[2018-10-17] MEDS: MIRTAZAPINE TAB 15 MG TAB PO SCH (21:10)
[2018-10-18] MEDS: PIPERACILLIN/TAZOBACTAM 3.375 GM in DEXTROSE 5% 100 ML IV SCH ×2 (02:45→08:54)
[2018-10-18] MEDS: HEPARIN SOD 5,000 UNIT/0.5 ML VIAL SQ SCH ×2 (05:47→13:57)
[2018-10-18] MEDS: methylPREDNISolone 40 MG in SYRINGE 0 ML IV SCH (05:55)
[2018-10-18] MEDS: OXYCODONE HCL 40 MG TABCR (OXYCONTIN) PO SCH ×2 (05:55→13:57)
[2018-10-18] MEDS: BUDESONIDE 0.5 MG/2 ML VIAL (PULMICORT) INH SCH (07:05)
[2018-10-18] MEDS: ALBUT/IPRATROP 3MG/0.5MG NEB 3 ML VIAL NEB SCH ×3 (07:05→15:17)
[2018-10-18] MEDS: ACETYLCYSTEINE 20% INHAL SOLN ***DISPENSED BY RESP. INH SCH (07:06)
[2018-10-18 07:21] LABS: Appearance Urine Clear (Clear); Bacteria Urine Automated Negative (Negative); Bilirubin Urine Negative (Negative); Blood Urine Negative (Negative); Cast Urine Automated 0 /lpf (0-5); Color Urine Yellow; Glucose Urine UA Negative (Negative); Ketones Urine Trace (Negative); Leukocyte Esterase Urine Negative (Negative); Nitrite Urine Negative (Negative); Protein Urine Trace (Negative); RBC Urine Automated 0-4 /hpf (0-4); Specific Gravity Urine 1.025 (1.000-1.030); Urobilinogen Urine Negative (Negative)
[2018-10-18] MEDS: SUCRALFATE 1 GM TAB PO SCH ×2 (07:32→12:01)
[2018-10-18] MEDS: ASPIRIN 81 MG ECTAB PO SCH (07:33)
[2018-10-18] MEDS: AMLODIPINE BESYLATE 5 MG TAB PO SCH (07:33)
[2018-10-18] MEDS: DOCUSATE SODIUM 100 MG CAP PO SCH (07:33)
[2018-10-18] MEDS: ISOSORBIDE MONO EXTENDED REL 30 MG TABCR PO SCH (07:34)
[2018-10-18] MEDS: PANTOprazole 40 MG TAB PO SCH (07:34)
[2018-10-18] MEDS: GABAPENTIN 600 MG TAB PO SCH (07:34)
[2018-10-18] MEDS: SODIUM CHLORIDE 0.65% NA SOLN 45 ML (OCEAN) SCH ×2 (07:35→13:57)
[2018-10-18] MEDS: POLYETHYLENE (MIRALAX) 17 GM PACK PO SCH (07:35)
[2018-10-18 07:36] LABS: Amphetamines+Metham, Urine Neg (Neg); Barbiturates, Urine Neg (Neg); Benzodiazepine, Urine Neg (Neg); Cocaine, Urine Neg (Neg); MDMA (Ecstacy), Urine Neg (Neg); Methadone, Urine Neg (Neg); Opiate, Urine Pos (Neg); Phencyclidine, Urine Neg (Neg)
[2018-10-18] MEDS: AMMONIUM LACTATE 12% LOTION 225 GM BTL EXT SCH (07:36)
[2018-10-18 08:03] LABS: Hematocrit (blood only) 30.1 % (42-52); Hemoglobin 10.3 g/dL (14.0-18.0); Mean Corpuscular Hgb Conc 34.2 g/dL (32-36); Mean Corpuscular Volume 92.9 fL (80-100); Mean Platelet Volume 11.3 fL (7.4-10.4); Nucleated RBC # (auto) 0.09 K/uL (0-0); Nucleated RBC % (auto) 0.9 %; Platelet Count 250 K/uL (130-400); RDW Coefficient of Variation 20.3 % (11.5-14.5); RDW Standard Deviation 68.5 fL (36.4-46.3); Red Blood Count 3.24 M/uL (4.7-6.1); White Blood Count 10.45 K/uL (4.8-10.8)
--- NOTE | 2018-10-18 08:40 | Gastroenterology Progress Note ---
Date of Service October 18, 2018 Assessment & Plan (1) Abdominal pain: Patient has significant retained stool on imaging with possible impaction. He needs to start a good bowel regimen and continue this on a daily basis. Thus far he is refusing the bowel regimen ordered. Explained to him the reason for this, however he is very focused on pain relief with narcotic pain medication. Would continue to encourage the bowel regimen as ordered. Consider Relistor. Continue pantoprazole. Please continue to correct electrolyte imbalance as indicated. Further recommendations pending course. Please call with questions. (2) Abnormal CT scan, gastrointestinal tract: Supervising Physician Co-Signing Physician Notes I have seen and examined the patient with Richard Rivera PA-C whose note reflects our findings and plan. Subjective Patient reports "pain all over." Difficult to have him focus on his GI issues, as he is frustrated - feels he is not getting enough pain medications and upset that he is on a heart healthy diet, "when I need to gain weight." He has refused his bowel regimen thus far. States he had a loose stool yesterday morning. Reports some n/v overnight, but nothing further. Labs show a normal WBC count and a Hgb of 10.3. Review of Systems Constitutional: no fever, no chills and no fatigue Eyes: no eye pain and no worsening vision Ear, Nose, Mouth, Throat: no ear pain, no hearing loss, no nasal congestion and no sore throat Respiratory: + cough and + dyspnea on exertion Cardiovascular: no chest pain Gastrointestinal: as per Subjective / HPI Integumentary: no rash and no pruritus Neurologic: no tingling, no numbness and no dizziness Psychiatric: no suicidal ideation and no confusion Endocrine: no cold intolerance and no heat intolerance Hematologic / Lymphatic: no easy bleeding and no easy bruising Allergy / Immunological: no problem reported Physical Exam Constitutional: no acute distress Eyes: + anicteric sclerae ENMT: external ear and nose normal, oropharynx normal Neck: normal visual inspection Respiratory: coarse breath sounds/wheezes on expiration Cardiovascular: Rate/Rhythm: regular rate and regular rhythm Heart Sounds: no murmur Gastrointestinal (Abdomen): Inspection/Auscultation: + hypoactive bowel sounds Percussion/Palpation: + abdomen tender (LLQ) and abdomen soft Musculoskeletal: Head/Neck/Chest: normocephalic and head atraumatic Skin: no rashes, warm and dry Neurologic: moves all extremities; no focal motor deficits Psychiatric: Orientation: alert and oriented x 3 Results & Data Vital Signs (Past 12 Hours) Vital Signs Temp Pulse Pulse Resp BP BP Pulse Ox 10/18/18 07:12 36.8 C 75 18 135/85 90 10/18/18 07:06 77 16 93 10/17/18 23:19 36.8 C 86 20 133/82 92 Laboratory Results - last 24 hr 10/18/18 10/18/18 10/18/18 07:04 07:04 07:15 WBC 10.45 RBC 3.24 L Hgb 10.3 L Hct 30.1 L MCV 92.9 MCH 31.8 MCHC 34.2 RDW Std Deviation 68.5 H RDW Coeff of Alin 20.3 H Plt Count 250 MPV 11.3 H Absolute Nucleated RBC 0.09 H Nucleated RBC % (auto) 0.9 Sodium Pending Potassium Pending Chloride Pending Carbon Dioxide Pending Anion Gap Pending BUN Pending Creatinine Pending Est Cr Clr Drug Dosing Pending Est GFR ( Amer) Pending Est GFR (Non-Af Amer) Pending BUN/Creatinine Ratio Pending Glucose Pending Calcium Pending Magnesium Pending Urine Color Yellow Urine Appearance Clear Urine pH 6.0 Ur Specific [place] 1.025 Urine Protein Trace H Urine Glucose (UA) Negative Urine Ketones Trace H Urine Blood Negative Urine Nitrite Negative Urine Bilirubin Negative Urine Urobilinogen Negative Ur Leukocyte Esterase Negative Urine WBC (Auto) 1-5 Urine RBC (Auto) 0-4 U Hyaline Cast (Auto) 0 U Epithel Cells (Auto) 5-10 H Urine Bacteria (Auto) Negative Urine Opiates Screen U Codeine Confrm GC/MS Ur Morphine (GC/MS) Ur Hydrocodone (GC/MS) Ur Norhydrocodone Ur Noroxycodone Urine Oxycodone (GC/MS) U Oxymorphone GC/MS Ur Methadone, Qual Ur Hydromorphone (GC/MS) Urine Barbiturates Ur Phencyclidine (PCP) U Amphetamin/Meth Scrn MDMA (Ecstasy) Screen U Benzodiazepines Scrn Ur Cocaine Metabolite U Marijuana (THC) Screen 10/18/18 10/18/18 07:15 07:15 WBC RBC Hgb Hct MCV MCH MCHC RDW Std Deviation RDW Coeff of Alin Plt Count MPV Absolute Nucleated RBC Nucleated RBC % (auto) Sodium Potassium Chloride Carbon Dioxide Anion Gap BUN Creatinine Est Cr Clr Drug Dosing Est GFR ( Amer) Est GFR (Non-Af Amer) BUN/Creatinine Ratio Glucose Calcium Magnesium Urine Color Urine Appearance Urine pH Ur Specific [place] Urine Protein Urine Glucose (UA) Urine Ketones Urine Blood Urine Nitrite Urine Bilirubin Urine Urobilinogen Ur Leukocyte Esterase Urine WBC (Auto) Urine RBC (Auto) U Hyaline Cast (Auto) U Epithel Cells (Auto) Urine Bacteria (Auto) Urine Opiates Screen Pos H U Codeine Confrm GC/MS Pending Ur Morphine (GC/MS) Pending Ur Hydrocodone (GC/MS) Pending Ur Norhydrocodone Pending Ur Noroxycodone Pending Urine Oxycodone (GC/MS) Pending U Oxymorphone GC/MS Pending Ur Methadone, Qual Neg Ur Hydromorphone (GC/MS) Pending Urine Barbiturates Neg Ur Phencyclidine (PCP) Neg U Amphetamin/Meth Scrn Neg MDMA (Ecstasy) Screen Neg U Benzodiazepines Scrn Neg Ur Cocaine Metabolite Neg U Marijuana (THC) Screen Neg
[2018-10-18 08:53] LABS: BUN Creatinine Ratio 17.8 (10-20); Calcium 8.1 mg/dl (8.5-10.1); Creatinine Clr Calc Pharmacy 56.8 ml/min; Est GFR (African American) 66.5; Est GFR (Non-African American) 57.4; Magnesium 2.1 mg/dl (1.8-2.4); Potassium 3.9 mmol/L (3.5-5.1)
--- NOTE | 2018-10-18 11:23 | Hospitalist Progress Note ---
Date of Service October 18, 2018 Assessment & Plan (1) Weakness: (2) COPD exacerbation: (3) JAMISON (acute kidney injury): (4) Colitis: Patient is a 68 yr old male with H/O COPD, alcoholic liver cirrhosis with portal hypertension and esophageal varices, malt lymphoma, chronic pain on chronic oxycodone therapy, history of left renal cell CA status post partial nephrectomy, history of splenectomy, HLD, hypothyroidism, GERD, anemia, chronic sinusitis who presents to [facility] ED from [facility] due to multiple vague complaints including weakness, lethargy, cough. Abdominal Pain Likely opioid induced constipation CT abdomen suggestive of rectosigmoid fecal impaction and moderate constipation, no bowel obstruction. Also findings of possible mild nonspecific colitis Blood/Stool culture:No growth to date Continue empiric IV Zosyn>>> Plan to transition to PO Abx upon discharge Appreciate GI Input Patient has been refusing bowel regimen Received IV fluids Minimize narcotic use as able Acute on chronic COPD exacerbation CXR:Chronic change. No acute process. Continue IV Solu-Medrol, nebs Also on IV antibiotics Blood Cx:No growth to date Plan to transition to PO prednisone upon discharge JAMISON: Resolved Cr: 1.45>>>1.29 Monitor renal function Received IV fluids (5) Hypokalemia: Hypokalemia:Resolved Likely due to GI loses Replace and monitor electrolytes as needed (6) Acute electrocardiogram changes: Patient denies chest pain or shortness of breath Troponin X 3: negative Last Stress Test in August 20, 2018 We will consider further work-up if patient develops any chest pain (7) Cirrhosis: Patient with alcoholic liver cirrhosis CT scan reveals evidence of cirrhosis, portal hypertension and esophageal v arices Continue PPI no evidence of ascites or decompensated cirrhosis (8) Chronic pain: Patient on high-dose oxycodone 120 mg 3 times daily He is also on Neurontin, scheduled Benadryl and per assisted MAR has been getting Phenergan 3 times daily routinely Hold Benadryl and Phenergan to avoid further sedating medications Consider decreasing Oxycodone dose if able (9) Weight loss: Reported per [facility] 15lb in 2 weeks Further work up as outpatient (10) HTN (hypertension): Stable Continue amlodipine (11) Neuropathy: Continue gabapentin (12) Hypothyroidism: TSH 14.9 but free T4 WNL 1.39 on Levothyroxine 275mcg daily Needs repeat thyroid function test as outpatient (13) HLD (hyperlipidemia): Continue statin (14) Anemia: Hb stable No signs or symptoms of bleeding at this time Monitor CBC (15) 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 Sinha at [facility] Subjective Patient is seen and examined at bedside Doing much better today Had 2 BMs today Has been refusing bowel regimen No new complaints Tolerating diet Has chronic generalized body ache Cough much improved Denies any chest pain, shortness of breath, dizziness Guards at bedside Review of Systems Review of Systems: All systems reviewed & are unremarkable except as noted in HPI & below Physical Exam Physical Exam: Physical Exam: Vitals signs as noted above General Appearance:Moderately built and nourished, no apparent distress Head: normocephalic, Atraumatic Eyes: normal inspection, EOMI Neck: supple, Trachea midline Respiratory/Chest: Decreased breath sounds, CTA Cardiovascular: S1, S2, No murmur Abdomen/GI:Soft, non tender, Bowel sounds present Extremities/Musculoskelatal:normal inspection, no edema, Chronic venous stasis changes Neurologic/Psych:AAOX3, grossly no focal neurological deficits Skin: normal color, warm Results & Data Vital Signs (Past 12 Hours) Vital Signs Temp Pulse Pulse Resp BP Pulse Ox 10/18/18 07:12 36.8 C 75 18 135/85 90 10/18/18 07:06 77 16 93 Laboratory Results Short CBC 10/18/18 Range/Units 07:04 WBC 10.45 (4.8-10.8) K/uL Hgb 10.3 L (14.0-18.0) g/dL Hct 30.1 L (42-52) % Plt Count 250 (130-400) K/uL BMP 10/18/18 07:04 Sodium 142 Potassium 3.9 D Chloride 110 H Carbon Dioxide 27 BUN 23 H Creatinine 1.29 Glucose 112 H Calcium 8.1 L Urine 10/18/18 Range/Units 07:15 Urine Color Yellow Urine Appearance Clear (Clear) Urine pH 6.0 (4.5-7.5) Ur Specific [place] 1.025 (1.000-1.030) Urine Protein Trace H (Negative) Urine Glucose (UA) Negative (Negative) (1) Chronic pain Chronic pain type: other chronic pain Qualified Code(s): G89.29 - Other chronic pain (2) Anemia Anemia type: unspecified type Qualified Code(s): D64.9 - Anemia, unspecified
--- NOTE | 2018-10-18 12:05 | Discharge Summary ---
Date of Service October 18, 2018 Admission HPI Per Admitting Provider This is a 68 yr old M who has a known past medical history of COPD, alcoholic liver cirrhosis with portal hypertension and esophageal varices, MALT lymphoma, chronic pain on chronic oxycodone therapy, history of left renal cell CA status post partial nephrectomy, history of splenectomy, HLD, hypothyroidism, GERD, anemia, chronic sinusitis who presents to [facility] ED from [facility] due to multiple vague complaints including weakness, lethargy, cough. Per ER transfer form reason for ER referral was weight loss of approximately 15 pounds in 2 weeks and intermittent confusion patient is a poor historian and gives a variable history. When asked why he reported to the hospital he states "my face and eyes swelled up and they took an EKG and the nurses told me to come to the ER." Upon further conversation patient elicits for the past 1 to 2 weeks he has had increased weakness, lethargy, productive cough of purulent sputum, nausea, emesis every few days, no BM for 5 days. He denies any fever, chills, sweats, lightheadedness or dizziness, chest pain, palpitations, hemoptysis or hematemesis, abdominal pain, diarrhea, dysuria, hematuria, increase in urgency or frequency with urination, hematochezia, melena. Overall has had poor appetite for past 1 to 2 weeks and has had poor p.o. intake with food and liquid but states "I could eat now." Per nursing staff approximately 30 minutes prior to my visit patient did have a large watery BM. Patient does not recall this. Also [facility] guards were in room with patient states that he has had approximately 10 to 13 pound weight loss in the past 2 weeks. Admission Exam Per Admitting Provider Gen: Thin, malnourished, -Dutch male, NAD, sitting up in bed, pleasant, answers questions appropriately Head: Normocephalic, Atraumatic Eyes: Sclera normal, no conjunctival injection, PERRLA, EOMI ENT: Gross hearing intact, normal pharynx, mucous membranes very dry Neck: supple, no adenopathy, No JVD, no bruit, Resp: Clear to auscultation b/l with diffuse expiratory wheezing throughout, no rales or rhonchi. Normal insp/exp effort, no accessory muscle us. 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 Extremities: No edema bilaterally Skin: warm, very dry, no rash, moderate turgor, cap refill < 2sec Neuro: Alert and oriented x 4 , speech slow, good mood/affect, cran nerve 2-12 intact grossly : deferred Principal Diagnosis Discharge Information Discharge Diagnosis Abdominal Pain--Likely opioid induced constipation Possible Non specific colitis Acute on chronic COPD exacerbation Acute Kidney Injury Hypokalemia Prolonged QTC Discharge Goals Decrease discomfort,Improve function,Improve disease control Discharge Activity Limitations Resume your previous activity Discharge Data Allergies Allergy/AdvReac Type Severity Reaction Status Date / Time YONNY Inhibitors Allergy Intermediate LIPS SWELL Verified 10/16/18 15:30 Cipro Allergy Mild PER RECORD Verified 09/19/17 13:41 ciprofloxacin Allergy Mild PER RECORD Verified 10/16/18 15:30 lisinopril Allergy Unknown UNKNOWN Verified 10/16/18 15:30 Consultations 10/16/18 17:34 ED Decision to Admit Stat 10/16/18 20:38 Consult Case Management - Discharge Planning Routine Consult Gastroenterology Routine Procedures Performed CT ABD: 1. Cirrhotic liver morphology. 2. Esophageal varices indicate portal hypertension. 3. The spleen is not identified and presumed surgically absent. 4. Advanced emphysema. 5. There is rectosigmoid fecal impaction and moderate constipation. No bowel obstruction is seen. 6. Mild wall thickening and edema with mucosal hyperemia is suggested involving the left colon. Correlate clinically for evidence of a mild nonspecific colitis. 7. Body wall edema and mesenteric edema suggest fluid overload. 8. There is a moderate hiatal hernia. Wall thickening is seen in the distal esophagus. Correlate clinically for evidence of esophagitis. 9. The gastric mucosa appears thickened and hyperemic. This is not well assessed by CT. Correlate clinically for evidence of gastritis. 10. Cholelithiasis and right-sided nephrolithiasis. 11. The bladder is distended but otherwise grossly unremarkable. 12. Numerous left-sided metallic foreign bodies are noted. 13. Additional findings as above. CXR: Chronic change. No acute process. Venous Doppler: 1. There is no sonographic evidence of deep venous thrombosis identified in the right or left lower extremity. 2. There is a small left-sided popliteal cyst. Ordered Studies 10/16/18 14:45 CT abd pelvis IV con only Stat 10/16/18 17:34 US venous doppler LE Urgent Hospital Course (1) Weakness: (2) COPD exacerbation: (3) JAMISON (acute kidney injury): (4) Colitis: Patient is a 68 yr old male with H/O COPD, alcoholic liver cirrhosis with portal hypertension and esophageal varices, malt lymphoma, chronic pain on chronic oxycodone therapy, history of left renal cell CA status post partial nephrectomy, history of splenectomy, HLD, hypothyroidism, GERD, anemia, chronic sinusitis who presents to [facility] ED from [facility] due to multiple vague complaints including weakness, lethargy, cough. Abdominal Pain Likely opioid induced constipation CT abdomen suggestive of rectosigmoid fecal impaction and moderate constipation, no bowel obstruction. Also findings of possible mild nonspecific colitis Blood/Stool culture:No growth to date Continue empiric IV Zosyn>>> Plan to transition to PO Abx upon discharge Appreciate GI Input Patient has been refusing bowel regimen Received IV fluids Minimize narcotic use as able Acute on chronic COPD exacerbation CXR:Chronic change. No acute process. Continue IV Solu-Medrol, nebs Also on IV antibiotics Blood Cx:No growth to date Plan to transition to PO prednisone upon discharge JAMISON: Resolved Cr: 1.45>>>1.29 Monitor renal function Received IV fluids (5) Hypokalemia: Hypokalemia:Resolved Likely due to GI loses Replace and monitor electrolytes as needed (6) Acute electrocardiogram changes: Patient denies chest pain or shortness of breath Troponin X 3: negative Last Stress Test in August 20, 2018 We will consider further work-up if patient develops any chest pain (7) Cirrhosis: Patient with alcoholic liver cirrhosis CT scan reveals evidence of cirrhosis, portal hypertension and esophageal varices Continue PPI no evidence of ascites or decompensated cirrhosis (8) Chronic pain: Patient on high-dose oxycodone 120 mg 3 times daily He is also on Neurontin, scheduled Benadryl and per [facility] has been getting Phenergan 3 times daily routinely Hold Benadryl and Phenergan to avoid further sedating medications Consider decreasing Oxycodone dose if able (9) Weight loss: Reported per [facility] 15lb in 2 weeks Further work up as outpatient (10) HTN (hypertension): Stable Continue amlodipine (11) Neuropathy: Continue gabapentin (12) Hypothyroidism: TSH 14.9 but free T4 WNL 1.39 on Levothyroxine 275mcg daily Needs repeat thyroid function test as outpatient (13) HLD (hyperlipidemia): Continue statin (14) Anemia: Hb stable No signs or symptoms of bleeding at this time Monitor CBC (15) 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 Sinha at [facility] Total Time Total Time Spent Total Time Spent (In Minutes): 43 minutes Total Time Includes: Examination of the Patient, Discharge Planning, Medication Reconciliation, Communication With Other Providers and Other Discharge Plan Discharge Items [facility] Reason For Visit: ILLNESS Discharge Diagnosis: Abdominal Pain--Likely opioid induced constipation Possible Non specific colitis Acute on chronic COPD exacerbation Acute Kidney Injury Hypokalemia Prolonged QTC Discharge Goals: Decrease discomfort, Improve disease control and Improve function Activity: Resume your previous activity Exercise/Sports: Gradually increase as tolerated Non-emergency contact: Primary Care Provider Call non-emergency contact if: you have any medication questions, your symptoms worsen, your pain is not controlled, your pain is worsening, your pain is unusual for you, your pain is concerning for you and you have a fever Follow-up/Referrals: [facility] [Primary Care Provider] - Diet: Heart Healthy Addtl Provider Instructions: [facility] with [facility] primary care physician at [facility] in 1 week Complete the antibiotic and prednisone course as prescribed Prednisone Course: Start taking Prednisone 40mg daily for 2 days, then 30mg daily for 2 days, then 20mg daily for 2 days, then 10mg daily for 2 days and STOP Discussed with the physician, regarding further work-up for weight loss as advised Quit smoking tobacco was advised Get repeat thyroid function tests in 4 weeks and follow-up with the physician with results for adjustment of your levothyroxine dose Your pain medication--Oxycodone dose may need to be decreased as it could be contributing to constipation and other complications. Discuss with your Physician for further recommendations Consider avoiding Sedative medications as able. Your Benadryl and Promethazine are discontinued for now. Your blood and stool cultures are currently pending at the time of discharge. Discuss with your physician for results. Seek immediate medical attention if your symptoms reoccur or worsen Prescriptions: New polyethylene glycol 3350 [Miralax] 17 gram Powder In Packet 17 g PO DAILY PRN (Reason: Constipation) Qty: 30 RF: 0 docusate sodium 100 mg Capsule 100 mg PO BID 30 Days Qty: 60 RF: 0 metronidazole [Flagyl] 500 mg tablet 500 mg PO Q8H 5 Days Qty: 15 RF: 0 cefuroxime axetil 500 mg tablet 500 mg PO BID 5 Days Qty: 10 RF: 0 prednisone 10 mg tablet 10 mg PO UD Qty: 20 RF: 0 Continued acetylcysteine 200 mg/mL (20 %) Solution 1 ml INHALATION BID RF: 0 atorvastatin 20 mg Tablet 20 mg PO HS RF: 0 ammonium lactate 12 % Lotion 1 applic TOPICAL BID RF: 0 mirtazapine 30 mg Tablet 30 mg PO HS RF: 0 budesonide 0.5 mg/2 mL Suspension For Nebulization 0.5 mg INHALATION BID RF: 0 aspirin [Aspirin Childrens] 81 mg Tablet,Chewable 81 mg PO QAM RF: 0 vits A and D-white pet-lanolin [A and D (eyal, pet)] Ointment 1 applic TOPICAL BID RF: 0 oxycodone 30 mg Tablet,Oral Only,Ext.Rel.12 Hr 120 mg PO TID RF: 0 ipratropium-albuterol 0.5 mg-3 mg(2.5 mg base)/3 mL Solution For Nebulization 3 ml INHALATION TID RF: 0 sucralfate 1 gram Tablet 1 g PO AC RF: 0 isosorbide mononitrate 30 mg Tablet Extended Release 24 Hr 30 mg PO QAM RF: 0 pantoprazole 20 mg Tablet,Delayed Release (Dr/Ec) 20 mg PO QAM RF: 0 tamsulosin 0.4 mg Capsule 0.4 mg PO HS RF: 0 amlodipine 5 mg Tablet 5 mg PO QAM RF: 0 gabapentin 600 mg Tablet 600 mg PO BID RF: 0 levothyroxine 75 mcg Tablet 75 mcg PO QAM RF: 0 levothyroxine 200 mcg Tablet 200 mcg PO QAM RF: 0 furosemide [Lasix] 40 mg Tablet 40 mg PO QAM RF: 0 Ensure Liquid 1 ea PO TID RF: 0 guaifenesin [Mucosa] 400 mg Tablet 1,200 mg PO BID RF: 0 Gentamicin Nasal Lavage NA .Q 10 DAYS. RF: 0 Gentamicin Nasal Lavage NA BID RF: 0 Saline Nasal Rinse NA DAILY RF: 0 Discontinued diphenhydramine HCl 25 mg Capsule 25 mg PO BID RF: 0 promethazine 25 mg Tablet 25 mg PO TID PRN (Reason: Nausea And Vomiting) RF: 0 Stand-Alone Forms: [facility] Discharge Orders: Discharge Order (Routine); Ordered 10/18/18 Ordered By: Maykel Macedo Admission Data Admit Date/Time: 10/16/18 18:19 Attending Provider: Maykel Macedo Admit Provider: Carrie Rosales Primary Care Provider: [facility] Other Providers: Yulisa Gilliam ; Carrie Rosales ; Sahra Godfrey Service: Medical Other Interventions: Discharge Summary Assessment (RN) Last Done: 10/18/18 12:26 Pending Studies at Discharge: Yes Studies:: Blood, Stool [place] Date/Time DO NOT enter until pt leaves facility: 10/18/18 16:24
[2018-10-19] MEDS ORDERED: methylPREDNISolone 40 MG in SYRINGE 0 ML IV SCH (09:00)
[2018-10-20 09:48] LABS: Codeine Urine NEGATIVE NG/ML (CUTOFF=50); Hydrocodone Urine NEGATIVE NG/ML (CUTOFF=50); Hydromor Urine NEGATIVE NG/ML (CUTOFF=50); Morphine Urine NEGATIVE NG/ML (CUTOFF=50); Norhydrocodone Conf Ur NEGATIVE NG/ML (CUTOFF=50); Noroxycodone Urine >20000 NG/ML (CUTOFF=50); Oxycodone Urine 14500 NG/ML (CUTOFF=50); Oxymorph Urine 7080 NG/ML (CUTOFF=50)
== END 2018-10-18 16:24 | DRG 392 ==
LOC: ED 13:50 → 2E 18:19 → SUATTDRO 18:19 → 2E 19:42 → 2W 10-17 14:56

== ENCOUNTER 2019-03-07 11:49 | Inpatient (IN) ==
[2019-03-07] MEDS ORDERED: ACETAMINOPHEN 325 MG TAB PO STA (12:15)
[2019-03-07 12:51] LABS: Basophils # (auto) 0.04 K/uL (0-0.2); Basophils % (auto) 0.2 %; Eosinophils # (auto) 0.16 K/uL (0-0.5); Eosinophils % (auto) 0.9 %; Hematocrit (blood only) 31.1 % (42-52); Hemoglobin 9.7 g/dL (14.0-18.0); Immature Granulocytes # (auto) 0.09 K/uL (0.00-0.02); Immature Granulocytes % (auto) 0.5 %; Lymphocytes # (auto) 3.41 K/uL (1.2-3.4); Lymphocytes % (auto) 18.4 %; Mean Corpuscular Hemoglobin 26.7 pg (25-34); Mean Corpuscular Hgb Conc 31.2 g/dL (32-36); Mean Corpuscular Volume 85.7 fL (80-100); Mean Platelet Volume 10.3 fL (7.4-10.4); Monocytes # (auto) 2.76 K/uL (0.11-0.59); Monocytes % (auto) 14.9 %; Neutrophils # (auto) 12.12 K/uL (1.4-6.5); Neutrophils % (auto) 65.1 %; Platelet Count 236 K/uL (130-400); RDW Coefficient of Variation 18.6 % (11.5-14.5); RDW Standard Deviation 57.2 fL (36.4-46.3); Red Blood Count 3.63 M/uL (4.7-6.1); White Blood Count 18.58 K/uL (4.8-10.8)
[2019-03-07 12:53] LABS: Base Excess ABG 6.2 mEq/L (-9-1.8); HCO3 ABG 31 mmol/L (19-24); Oxygen Saturation ABG 94.7 % (90-95); PCO2 ABG 48 mmHg (35-46); PO2 ABG 80 mm/Hg (80-95); pH ABG 7.43 (7.35-7.45)
[2019-03-07 12:55] LABS: Allen Test Pos (Pos)
--- NOTE | 2019-03-07 13:14 | CT Scan Report ---
CT head/brain wo con CLINICAL HISTORY: 69 years-old Male presenting with ams/FREIRE eval for bleed. TECHNIQUE: Multidetector CT imaging of the head was performed without the use of intravenous contrast . IV contrast: None. One or more dose lowering techniques were used consistent with the principles of ALARA (as low as reasonably achievable), including automatic exposure control, mA or kV adjustment t o individual patient size, and/or use of iterative reconstruction. COMPARISON: 07/24/2017. CT DOSE (mGy.cm): The estimated cumulative dose is 1992.89 mGy.cm. 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 Ventricles and sulci normal in size. No hemorrhage. Brain parenchyma normal in appearance with preser alfonso ureña-white differentiation. No acute territorial infarct. No mass effect or midline shift. No ext ra-axial fluid collection. Postsurgical changes of the maxillary sinuses with evidence of chronic sin usitis and mucosal thickening in the maxillary sinuses and ethmoid air cells. Calvarium intact. IMPRESSION: 1. No acute intracranial abnormality. ACT 112: Negative or not required by law. Electronically signed by: Dada Rahman M.D. 03/07/2019 1:13 PM
[2019-03-07 13:15] LABS: INR 1.1 (0.9-1.1); Partial Thromboplastin Ratio 0.9; Partial Thromboplastin Time 24.8 Seconds (21.0-31.0); Prothrombin Time 11.6 Seconds (9.0-12.0)
[2019-03-07 13:19] LABS: Albumin Level 2.3 gm/dl (3.4-5.0); BUN Creatinine Ratio 14.8 (10-20); Calcium 8.2 mg/dl (8.5-10.1); Creatinine Clr Calc Pharmacy 59.7 ml/min; Est GFR (African American) 69.3; Est GFR (Non-African American) 59.8; Potassium 3.2 mmol/L (3.5-5.1)
[2019-03-07 13:22] LABS: Albumin Globulin Ratio 0.4 (0.9-2); Bilirubin,Total 0.5 mg/dl (0.2-1); Globulin 5.8 gm/dl (2.5-4.0); Total Protein 8.1 gm/dl (6.4-8.2)
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
[2019-03-07] MEDS ORDERED: PIPERACILLIN/TAZOBACTAM 4.5 GM/120 ML BAG IV ONE (14:09)
[2019-03-07] MEDS ORDERED: PIPERACILL/TAZOBAC CONSULT ACTIVE PRN ×2 (14:09→17:51)
--- NOTE | 2019-03-07 14:09 | Ultrasound Report ---
US venous doppler LE CLINICAL HISTORY: 69 years-old Male presenting with lower extremity swelling and pain, eval for dvt. TECHNIQUE: Real-time grayscale and color and spectral Doppler ultrasound imaging of the veins of the bilateral lower extremities was performed. Compression and augmentation were also utilized. COMPARISON: 10/16/2018. FINDINGS: RIGHT: Common femoral vein: Patent. Greater saphenous vein (superficial): Patent. Deep femoral vein: Patent. Femoral vein: Patent. Popliteal vein: Patent. Calf veins: Patent. LEFT: Common femoral vein: Patent. Greater saphenous vein (superficial): Patent. Deep femoral vein: Patent. Femoral vein: Patent. Popliteal vein: Patent. Calf veins: Patent. Other: None. IMPRESSION: No evidence of deep venous thrombosis. ACT 112: Negative or not required by law. Electronically signed by: Dada Rahman M.D. 03/07/2019 2:07 PM
[2019-03-07] MEDS ORDERED: FUROSEMIDE 40 MG/4 ML VIAL IV STA (15:55)
[2019-03-07] MEDS ORDERED: POTASSIUM CHLORIDE 20 MEQ TABCR PO STA (16:07)
--- NOTE | 2019-03-07 16:14 | History & Physical Report ---
Date of Service March 07, 2019 Assessment & Plan (1) Hypoxia: (2) Pneumonia: (3) Fluid overload: Pt is 69 y/o M with PMH COPD, alcoholic cirrhosis, portal hypertension, esophageal varices, MALT lymphoma, h/o left renal cell carcinoma s/p partial nephrectomy, h/o splenectomy, HTN, hypothyroidism, HLD, chronic anemia, chronic pain presented to ER from [facility] for fever, hypoxia. Patient with reported temp 100.1 F, pulse ox 84% on room air and reported confusion today. Pt reports lethargy x 4-5 days. Reports BLE edema x several months with recent worsening. Was on Bumex, unsure when last took Bumex. Denies CP, SOB, orthopnea, PND, cough. Has chronic nasal congestion In ER T: 38.3C, P: 87, R: 20, BP: 126/87, 82% on RA up to 97% on 10L oxymask. Oxygen weaned to 5L with sats 98% WBC: 18, Lactate: 1.3, Procalcitonin: 0.05. Negative influenza swab ABG: pH: 7.43, pCO2: 48, pO2: 80, pHCO3: 31 CXR: 1. Cardiomegaly with volume overload, congestive change, and mild to moderate pulmonary edema. 2. The more focal dense infiltrate in the right lower lobe could relate to a greater degree of edema, focal atelectasis, or superimposed infectious infiltrate. Follow-up is advised. 3. Right greater than left pleural effusions BLE Venous Doppler negative for DVT -In ER given Tylenol, Zosyn -Blood cultures pending -Wean oxygen -Supplemental oxygen as needed with goal 90-94% -Scheduled Duonebs -Zosyn -Guaifenesin -Continue Pulmicort, nebulized Mucomyst -Lasix 40mg IV daily -Monitor I&O's, low sodium diet, daily weight -Echo -CBC, BMP in am -Consider cardiology consult if no improvement (4) Hypokalemia: K: 3.2 -Replace and monitor -Magnesium level 2.1 (5) Cirrhosis: H/O cirrhosis, portal HTN, esophageal varices Reported confusion at [facility] today -Pending ammonia level with reported confusion today. 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 Denies any changes, N/V/D -Continue PPI, Reglan (7) CAD (coronary artery disease): Denies CP -Continue aspirin, isosorbide (8) Hypothyroidism: -TSH pending -Continue levothyroxine (9) Anemia: Chronic anemia. Baseline Hgb: 9-10 Hgb: 9.7 -Monitor H&H (10) Chronic pain: On high dose narcotics - oxycodone 90mg TID. (this has decreased from 120mg TID in 10/2018) -Continue oxycodone, gabapentin DVT Prophylaxis -Heparin SQ Full Code as per discussion with pt Follows with Dr Sinha at [facility] for routine care Pt was seen and care coordinated with Dr Roberts. See addendum History of Present Illness Chief Complaint: Fever, hypoxia Primary Care Provider: [facility] Pt is 69 y/o M with PMH COPD, alcoholic cirrhosis, portal hypertension, esophageal varices, MALT lymphoma, h/o left renal cell carcinoma s/p partial nephrectomy, h/o splenectomy, HTN, hypothyroidism, HLD, chronic anemia, chronic pain presented to ER from [facility] for fever, hypoxia. Patient with reported temp 100.1 F, P: 100, RR: 18, pulse ox 84% on room air and reported confusion today and was transported to ER. Patient states for the past 4 to 5 days has been feeling generalized weakness and myalgias. Patient denies any noted shortness of breath, chest pain. It is reported that patient was noted to have wheezing at [facility]. Patient reports BLE edema for past several months and reports has been on Bumex. Patient is unsure when last dose of Bumex was. He thinks he has had increased BLE edema. Denies orthopnea or PND. Reports chronic sinus congestion and rhinorrhea and denies any increase. Reports has not been sleeping much past several days and feels tired but reports feeling improved since being in ER. Patient reports chronic abdominal pain denies any increased abdominal pain. Denies any recent vomiting or diarrhea. Reports nausea is controlled with Reglan. Denies diaphoresis, melena, hematochezia, FREIRE, dizziness, syncope, vision changes, neck pain, palpitations, cough, sore throat, choking, otalgia, paresthesias, weakness, rashes, urinary symptoms. Allergies Allergy/AdvReac Type Severity Reaction Status Date / Time YONNY Inhibitors Allergy Intermediate LIPS SWELL Verified 02/01/19 11:53 Cipro Allergy Mild PER RECORD Verified 09/19/17 13:41 ciprofloxacin Allergy Mild PER RECORD Verified 02/01/19 11:53 lisinopril Allergy Unknown UNKNOWN Verified 02/01/19 11:53 Home Medications Home Medications Medication Instructions Recorded Confirmed Type budesonide 0.5 mg INHALATION BID 03/07/18 03/07/19 History ipratropium-albuterol 3 ml INHALATION TID 03/07/18 03/07/19 History isosorbide mononitrate 30 mg PO QAM 03/07/18 03/07/19 History mirtazapine 30 mg PO HS 03/07/18 03/07/19 History oxycodone 90 mg PO TID 03/07/18 03/07/19 History sucralfate 1 g PO TID 03/07/18 03/07/19 History tamsulosin 0.4 mg PO HS 03/07/18 03/07/19 History levothyroxine 200 mcg PO QAM 10/16/18 03/07/19 History acetylcysteine 1 ml INHALATION BID 10/20/18 03/07/19 History guaifenesin [Mucosa] 1,200 mg PO BID 10/20/18 03/07/19 History metoclopramide HCl [Reglan] 10 mg PO TID 02/01/19 03/07/19 History pantoprazole 40 mg PO BID 02/01/19 03/07/19 History ammonium lactate 1 applic TOPICAL BID 03/07/19 03/07/19 History aspirin 81 mg PO DAILY 03/07/19 03/07/19 History bumetanide 2 mg PO DAILY 03/07/19 03/07/19 History gabapentin 800 mg PO BID 03/07/19 03/07/19 History lactulose 30 ml PO TID 03/07/19 03/07/19 History levothyroxine 50 mcg PO QAM 03/07/19 03/07/19 History Past Med/Surg History Medical History Anemia (Chronic) CAD (coronary artery disease) (Chronic) Chronic pain (Chronic) Chronic sinusitis (Chronic) Cirrhosis (Chronic) COPD (chronic obstructive pulmonary disease) (Chronic) Esophageal varices (Chronic) 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) GERD (gastroesophageal reflux disease) (Chronic) HLD (hyperlipidemia) (Chronic) HTN (hypertension) (Chronic) Hypothyroidism (Chronic) Malignant neoplasm of kidney (Chronic) Neuropathy (Chronic) Portal hypertension (Chronic) PVD (peripheral vascular disease) (Chronic) Surgical History History of appendectomy (Chronic) History of partial nephrectomy (Chronic) History of splenectomy (Chronic) Family History Mother Hypothyroidism Father Myocardial infarction Social History Preferred Language: Wallisian Communication Ability: Effective Communication Ability Comment: lethargic Project Manager/Design Manager Required: No Beliefs That Will Affect Care: None Current Living Situation: Other Current Living Situation Comment: [facility] current occupational status: unemployed Other Information That Helps Us Care for You: No Feels Safe at Home: Yes Safety Concerns: Feels Safe At This Time Smoking Status: Former smoker Tobacco Type: cigarettes ; Cigarettes Per Day: 12 ; Do You Dip or Chew Tobacco: No ; Second Hand Exposure: No ; Tobacco Cessation Education Requested by Patient: No Hx Alcohol Use: No Hx Substance Use: No Review of Systems Review of Systems: All systems reviewed & are unremarkable except as noted in HPI & below Physical Exam Physical Exam: General: no acute distress, WDWN Head: normocephalic, atraumatic Eyes: PERRL, EOM's intact, conjunctiva non-injected, +clear tearing, anicteric ENT: normal inspection external ears, nose, mucous membranes moist Neck: supple, trachea midline, non-tender Lungs: R: 18 no retractions on oxymask 5L with O2 sat 97%, +diminished breath sounds, rales bases, scattered wheezing CV: RRR, no murmur, no JVD, 2+ pretibial edema Abd: normal BS, soft, healed surgical incision, mild tenderness to palpation lower abdomen Ext: no calf tenderness, 2+pitting edema Neuro: A&O x 3, no focal deficits noted, normal affect Skin: warm, +dry skin worse to lower extremities Results & Data Vital Signs (Past 12 Hours) Vital Signs Temp Pulse Resp BP Pulse Ox 03/07/19 14:21 78 15 98 03/07/19 14:20 79 13 121/67 97 03/07/19 14:16 73 16 03/07/19 13:31 84 12 96 03/07/19 13:30 77 13 128/76 96 03/07/19 13:20 81 15 96 03/07/19 13:16 78 16 96 03/07/19 13:15 76 12 128/69 96 03/07/19 13:14 78 14 129/74 97 03/07/19 12:50 82 13 93 03/07/19 12:45 83 14 124/77 91 03/07/19 12:41 84 14 120/74 96 03/07/19 12:40 84 14 95 03/07/19 12:30 83 17 94 03/07/19 12:20 87 13 03/07/19 12:15 88 24 96 03/07/19 12:01 38.3 C H 87 20 126/87 82 L 03/07/19 12:00 84 15 132/82 97 Laboratory Results Short CBC 03/07/19 Range/Units 12:37 WBC 18.58 H (4.8-10.8) K/uL Hgb 9.7 L (14.0-18.0) g/dL Hct 31.1 L (42-52) % Plt Count 236 (130-400) K/uL BMP 03/07/19 12:30 Sodium 140 Potassium 3.2 L Chloride 108 H Carbon Dioxide 32 BUN 18 Creatinine 1.24 Glucose 86 Calcium 8.2 L Liver Function 03/07/19 Range/Units 12:30 Total Bilirubin 0.5 (0.2-1) mg/dl AST 26 (15-37) U/L ALT 22 (12-78) U/L Alkaline Phosphatase 82 (45-117) U/L Albumin 2.3 L (3.4-5.0) gm/dl Diagnostic Findings CXR: IMPRESSION: 1. Cardiomegaly with volume overload, congestive change, and mild to moderate pulmonary edema. 2. The more focal dense infiltrate in the right lower lobe could relate to a greater degree of edema, focal atelectasis, or superimposed infectious infiltr ate. Follow-up is advised. 3. Right greater than left pleural effusions. CT HEAD: IMPRESSION: 1. No acute intracranial abnormality. BLE VENOUS DOPPLER: IMPRESSION: No evidence of deep venous thrombosis. Code Status & VTE Plan VTE Prophylaxis Plan VTE Prophylaxis will be ordered: Yes Supervising Physician Co-Signing Physician Notes Pt was seen and examined. Agreed with Ilsa MEEHAN exam, assessment, plan. 69 y/o M with PMH COPD, alcoholic cirrhosis, portal hypertension, esophageal varices, MALT lymphoma, h/o left renal cell carcinoma s/p partial nephrectomy, h/o splenectomy, HTN, hypothyroidism, HLD, chronic anemia, chronic pain presented to ER from [facility] for fever and SOB. Pt said that he has been having worsening nasal congestion. He said that he is bringing yellowish phlegm. He said that he has been having worsening weakness. He was found to be hypoxia at the [facility] and low grade fever. In the ER Temp was 38.3C, P: 87, R: 20, BP: 126/87, 82% on RA up to 97% on 10L oxymask. CXR showed cardiomegaly with volume overload, congestive change, and mild to moderate pulmonary edema and more focal dense infiltrate in the right lower lobe could relate to a greater degree of edema, focal atelectasis, or superimposed infectious infiltrate. Doppler of B/L LE showed no evidence of deep venous thrombosis. Received IV Zosyn in the ER and lasix 40mg IV was given. Blood cx collected in the ER- result pending. Continue IV Zosyn for now. Will assess in am for additional IV diuretic. Will repeat CXR in am. Monitor BMP. Will continue monitor closely. MD Alejandra (1) Chronic pain Chronic pain type: other chronic pain Qualified Code(s): G89.29 - Other chronic pain (2) Anemia Anemia type: unspecified type Qualified Code(s): D64.9 - Anemia, unspecified (3) Pneumonia Laterality: right Lung location: lower lobe of lung Pneumonia type: due to unspecified organism Qualified Code(s): J18.9 - Pneumonia, unspecified organism
[2019-03-07 16:50] LABS: Magnesium 2.1 mg/dl (1.8-2.4); Thyroid Stimulating Hormone 0.272 uIu/ml (0.300-4.500)
[2019-03-07] MEDS ORDERED: OXYCODONE HCL IR 30 MG TAB (IMMEDIATE RELEASE) PO ONE (16:54)
[2019-03-07 17:27] LABS: Appearance Urine Clear (Clear); Bilirubin Urine Negative (Negative); Blood Urine Negative (Negative); Color Urine Yellow; Glucose Urine UA Negative (Negative); Ketones Urine Negative (Negative); Leukocyte Esterase Urine Negative (Negative); Nitrite Urine Negative (Negative); Protein Urine Negative (Negative); Specific Gravity Urine 1.007 (1.000-1.030); Urobilinogen Urine Negative (Negative)
--- NOTE | 2019-03-07 17:34 | Emergency Department Note ---
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 the patient's chest x-ray as described above. He does have a right lower lobe infiltrate. I did order blood cultures. I did treat the patient with Zosyn IV. He was also given Tylenol for his fever. I did order and review the patient's blood work as noted in the electronic medical record. He is anemic. He has a significantly elevated white blood cell count. Procalcitonin and lactic acid are not elevated . ABG shows a PCO2 of 48. pH is 7.4. PaO2 is 80. Rapid flu testing is negative. I did order a CT of the head. I did review the images myself as well as the radiology report as described above. There is no evidence of acute intracranial abnormality. I did order an ultrasound of the lower extremities. Doppler examination does not show any evidence of DVT. I did discuss the test results with the patient. I did discuss the case with the hospitalist and corrections caseworker. Impression & Plan Sepsis, Pneumonia, Anemia, COPD exacerbation, Hypoxemia Discharge Plan Visit Data Chief Complaint: Fever ED Provider: Jett Ruth Discharge Problem: Sepsis, Pneumonia, Anemia, COPD exacerbation, Hypoxemia Discharge Instructions Interventions: ED Discharge Assessment Last Done: 03/07/19 17:09 Discharge Problem: Sepsis Qualifiers: Sepsis type: sepsis due to unspecified organism Sepsis acute organ dysfunction status: unspecified Qualified Code(s): A41.9 - Sepsis, unspecified organism Pneumonia Qualifiers: Pneumonia type: due to unspecified organism Laterality: right Lung location: lower lobe of lung Qualified Code(s): J18.9 - Pneumonia, unspecified organism Anemia Qualifiers: Anemia type: unspecified type Qualified Code(s): D64.9 - Anemia, unspecified The scribe's documentation has been prepared under my direction and personally reviewed by me in its entirety. I confirm that the note above accurately reflects all work, treatment, procedures, and medical decision making performed by me.
[2019-03-07] MEDS ORDERED: ACETAMINOPHEN 325 MG TAB PO PRN (17:47)
[2019-03-07] MEDS: OXYCODONE HCL IR 30 MG TAB (IMMEDIATE RELEASE) PO ONE ×2 (18:03→18:18)
[2019-03-07] MEDS: OXYCODONE HCL 15 MG TABCR (OXYCONTIN) PO PRN (18:23)
[2019-03-07] MEDS: ALBUT/IPRATROP 3MG/0.5MG NEB 3 ML VIAL NEB SCH (18:55)
[2019-03-07] MEDS: BUDESONIDE 0.5 MG/2 ML VIAL (PULMICORT) INH SCH (18:55)
[2019-03-07] MEDS: ACETYLCYSTEINE 20% INHAL SOLN 30ML***DISPENSED BY RESP. INH SCH (18:56)
[2019-03-07] MEDS: PIPERACILLIN/TAZOBACTAM 3.375 GM in DEXTROSE 5% 100 ML IV SCH (20:15)
[2019-03-07] MEDS: LACTULOSE SYRUP 20 GM/30 ML UDC PO SCH (20:20)
[2019-03-07] MEDS: guaiFENesin 600 MG TABCR PO SCH ×2 (20:20→20:52)
[2019-03-07] MEDS: GABAPENTIN 800 MG TAB PO SCH (20:21)
[2019-03-07] MEDS: PANTOprazole 40 MG TAB PO SCH (20:21)
[2019-03-07] MEDS: MIRTAZAPINE TAB 15 MG TAB PO SCH (20:22)
[2019-03-07] MEDS: TAMSULOSIN HCL 0.4 MG CAP PO SCH (20:23)
[2019-03-07] MEDS: HEPARIN SOD 5,000 UNIT/0.5 ML VIAL SQ SCH (20:52)
[2019-03-07] MEDS ORDERED: OXYCODONE HCL 10 MG TABCR (OXYCONTIN) PO SCH (21:00)
[2019-03-07] MEDS ORDERED: OXYCODONE HCL 15 MG TABCR (OXYCONTIN) PO SCH (21:00)
[2019-03-07] MEDS ORDERED: OXYCODONE HCL 20 MG TABCR (OXYCONTIN) PO SCH (21:00)
[2019-03-07] MEDS: AMMONIUM LACTATE 12% LOTION 225 GM BTL EXT SCH (21:22)
[2019-03-08] MEDS: PIPERACILLIN/TAZOBACTAM 3.375 GM in DEXTROSE 5% 100 ML IV SCH ×3 (04:03→20:47)
[2019-03-08] MEDS: HEPARIN SOD 5,000 UNIT/0.5 ML VIAL SQ SCH ×3 (05:40→20:50)
[2019-03-08] MEDS: LEVOTHYROXINE SODIUM 200 MCG TABLET PO SCH (05:40)
[2019-03-08] MEDS: LEVOTHYROXINE SODIUM 50 MCG TABLET PO SCH (05:40)
[2019-03-08] MEDS: SUCRALFATE 1 GM TAB PO SCH ×3 (06:33→15:45)
[2019-03-08] MEDS: ALBUT/IPRATROP 3MG/0.5MG NEB 3 ML VIAL NEB SCH ×4 (07:02→19:06)
[2019-03-08] MEDS: BUDESONIDE 0.5 MG/2 ML VIAL (PULMICORT) INH SCH ×2 (07:02→19:06)
[2019-03-08] MEDS: AMMONIUM LACTATE 12% LOTION 225 GM BTL EXT SCH ×2 (07:03→20:47)
[2019-03-08 08:12] LABS: Basophils # (auto) 0.04 K/uL (0-0.2); Basophils % (auto) 0.2 %; Eosinophils # (auto) 0.37 K/uL (0-0.5); Hematocrit (blood only) 36.9 % (42-52); Hemoglobin 11.3 g/dL (14.0-18.0); Immature Granulocytes # (auto) 0.07 K/uL (0.00-0.02); Immature Granulocytes % (auto) 0.4 %; Lymphocytes # (auto) 4.95 K/uL (1.2-3.4); Lymphocytes % (auto) 27.4 %; Mean Corpuscular Hemoglobin 26.7 pg (25-34); Mean Corpuscular Hgb Conc 30.6 g/dL (32-36); Mean Platelet Volume 11.1 fL (7.4-10.4); Monocytes # (auto) 2.48 K/uL (0.11-0.59); Monocytes % (auto) 13.7 %; Neutrophils # (auto) 10.15 K/uL (1.4-6.5); Neutrophils % (auto) 56.3 %; Nucleated RBC # (auto) 0.05 K/uL (0-0); Nucleated RBC % (auto) 0.3 %; Platelet Count 264 K/uL (130-400); RDW Coefficient of Variation 18.7 % (11.5-14.5); RDW Standard Deviation 59.1 fL (36.4-46.3); Red Blood Count 4.24 M/uL (4.7-6.1); White Blood Count 18.06 K/uL (4.8-10.8)
[2019-03-08] MEDS: LACTULOSE SYRUP 20 GM/30 ML UDC PO SCH ×3 (08:29→20:47)
[2019-03-08] MEDS: PANTOprazole 40 MG TAB PO SCH ×2 (08:29→20:51)
[2019-03-08] MEDS: METOCLOPRAMIDE HCL 10 MG TABLET PO SCH ×3 (08:29→15:45)
[2019-03-08] MEDS: GABAPENTIN 800 MG TAB PO SCH ×2 (08:30→20:51)
[2019-03-08] MEDS: ASPIRIN 81 MG CHEW PO SCH (08:30)
[2019-03-08] MEDS: guaiFENesin 600 MG TABCR PO SCH ×2 (08:35→20:51)
[2019-03-08 08:42] LABS: BUN Creatinine Ratio 11.3 (10-20); Calcium 8.5 mg/dl (8.5-10.1); Creatinine Clr Calc Pharmacy 61.2 ml/min; Est GFR (African American) 71.4; Est GFR (Non-African American) 61.6; Potassium 3.9 mmol/L (3.5-5.1)
[2019-03-08] MEDS: OXYCODONE HCL 15 MG TABCR (OXYCONTIN) PO PRN (08:43)
[2019-03-08] MEDS ORDERED: FUROSEMIDE 40 MG in SYRINGE 0 ML IV SCH (09:00)
[2019-03-08] MEDS ORDERED: ISOSORBIDE MONO EXTENDED REL 30 MG TABCR PO SCH (09:00)
[2019-03-08] MEDS ORDERED: FUROSEMIDE 40 MG/4 ML VIAL IV SCH (09:00)
[2019-03-08] MEDS ORDERED: ALBUTEROL 0.083% NEBU SOLN 3 ML VIAL NEB PRN (10:33)
[2019-03-08] MEDS: OXYCODONE HCL IR 30 MG TAB (IMMEDIATE RELEASE) PO SCH ×4 (13:14→21:17)
[2019-03-08] MEDS: ACETYLCYSTEINE 20% INHAL SOLN 30ML***DISPENSED BY RESP. INH SCH ×2 (13:32→19:06)
--- NOTE | 2019-03-08 15:03 | Hospitalist Progress Note ---
Date of Service March 08, 2019 Assessment & Plan (1) Hypoxia: (2) Pneumonia: (3) Fluid overload: Patient is a 69 yr male with H/O COPD, alcoholic cirrhosis, portal hypertension, esophageal varices, MALT lymphoma, h/o left renal cell carcinoma s/p partial nephrectomy, h/o splenectomy, HTN, hypothyroidism, HLD, chronic anemia, chronic pain presented to ER from [facility] for fever, hypoxia, worsening lower extremity edema and some confusion. Community-acquired pneumonia Volume overload--likely due to cirrhosis Acute on chronic hypoxic respiratory failure H/O COPD --CXR: Cardiomegaly with volume overload, congestive change, and mild to moderate pulmonary edema. 2. The more focal dense infiltrate in the right lower lobe could relate to a greater degree of edema, focal atelectasis, or superimposed infectious infiltrate. Follow-up is advised. 3. Right greater than left pleural effusions --Venous Doppler: negative for DVT --Blood Cx: No growth to date --Check ECHO --Titrate oxygen to keep sats greater than 90% --Continue IV Zosyn, nebs --Continue Pulmicort, Mucomyst --Continue IV lasix --Monitor volume status, daily weight, I's and O's --Pulmonary hygiene (4) Hypokalemia: Likely due to diuretics Replace and monitor electrolytes as needed (5) Cirrhosis: H/O cirrhosis, portal HTN, esophageal varices Reported confusion at [facility]--None while hospitalized Normal ammonia level CT head: No acute intracranial abnormality Continue lactulose (6) 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 Denies any changes, N/V/D Continue PPI, Reglan (7) CAD (coronary artery disease): Continue aspirin, isosorbide (8) Hypothyroidism: Continue levothyroxine (9) Anemia: Chronic anemia. Baseline Hgb: 9-10 Monitor CBC (10) Chronic pain: On high dose narcotics - oxycodone 90mg TID. (this has decreased from 120mg TID in 10/2018) Continue oxycodone, gabapentin DVT Px Heparin SQ Code Status Full Code Disposition Follows with Dr Sinha at [facility] for routine care Subjective Patient is seen and examined at bedside Reports cough with no expectoration States having shortness of breath with minimal exertion Reports bilateral lower extremity edema Has chronic pain Denies any nausea, vomiting, dizziness, chest pain Guards at bedside Offers no other complaints Review of Systems Review of Systems: All systems reviewed & are unremarkable except as noted in HPI & below Physical Exam Physical Exam: Physical Exam: Vitals signs as noted above General Appearance:Moderately built and nourished, no apparent distress Head: normocephalic, Atraumatic Eyes: normal inspection, EOMI Neck: supple, Trachea midline Respiratory/Chest: Decreased breath sounds, CTA Cardiovascular: S1, S2, No murmur Abdomen/GI:Soft, Chronic mild tender, Bowel sounds present Extremities/Musculoskelatal:normal inspection, chronic venous stasis, B/L LE edema Neurologic/Psych:AAOX3, grossly no focal neurological deficits Skin: normal color, warm Results & Data Vital Signs (Past 12 Hours) Vital Signs Temp Pulse Pulse Resp BP Pulse Ox 03/08/19 14:03 93 03/08/19 11:30 36.7 C 94 H 20 119/73 89 L 03/08/19 11:09 94 H 18 90 03/08/19 07:19 36.9 C 82 20 145/79 H 90 03/08/19 07:05 20 95 03/08/19 03:32 36.7 C 60 21 162/94 H 97 03/08/19 03:03 83 Laboratory Results Short CBC 03/08/19 Range/Units 07:42 WBC 18.06 H (4.8-10.8) K/uL Hgb 11.3 L (14.0-18.0) g/dL Hct 36.9 L (42-52) % Plt Count 264 (130-400) K/uL BMP 03/08/19 07:42 Sodium 140 Potassium 3.9 D Chloride 105 Carbon Dioxide 32 BUN 14 Creatinine 1.21 Glucose 105 H Calcium 8.5 Urine 03/07/19 Range/Units 17:07 Urine Color Yellow Urine Appearance Clear (Clear) Urine pH 8.0 H (4.5-7.5) Ur Specific [employer] 1.007 (1.000-1.030) Urine Protein Negative (Negative) Urine Glucose (UA) Negative (Negative) (1) Pneumonia Laterality: right Lung location: lower lobe of lung Pneumonia type: due to unspecified organism Qualified Code(s): J18.9 - Pneumonia, unspecified organism (2) Anemia Anemia type: unspecified type Qualified Code(s): D64.9 - Anemia, unspecified (3) Chronic pain Chronic pain type: other chronic pain Qualified Code(s): G89.29 - Other chronic pain
[2019-03-08] MEDS: FUROSEMIDE 40 MG in SYRINGE 0 ML IV SCH (17:04)
[2019-03-08] MEDS: TAMSULOSIN HCL 0.4 MG CAP PO SCH (20:48)
[2019-03-08] MEDS: MIRTAZAPINE TAB 15 MG TAB PO SCH ×2 (20:52→21:17)
[2019-03-09] MEDS: PIPERACILLIN/TAZOBACTAM 3.375 GM in DEXTROSE 5% 100 ML IV SCH ×3 (04:06→20:48)
[2019-03-09] MEDS: LEVOTHYROXINE SODIUM 50 MCG TABLET PO SCH (05:52)
[2019-03-09] MEDS: SUCRALFATE 1 GM TAB PO SCH ×3 (05:52→17:46)
[2019-03-09] MEDS: ISOSORBIDE MONO EXTENDED REL 30 MG TABCR PO SCH (05:52)
[2019-03-09] MEDS: HEPARIN SOD 5,000 UNIT/0.5 ML VIAL SQ SCH ×3 (05:53→22:08)
[2019-03-09] MEDS: LEVOTHYROXINE SODIUM 200 MCG TABLET PO SCH (05:53)
[2019-03-09 06:57] LABS: Hematocrit (blood only) 35.2 % (42-52); Hemoglobin 10.9 g/dL (14.0-18.0); Mean Corpuscular Hemoglobin 26.8 pg (25-34); Mean Corpuscular Volume 86.7 fL (80-100); Mean Platelet Volume 10.9 fL (7.4-10.4); Nucleated RBC # (auto) 0.08 K/uL (0-0); Nucleated RBC % (auto) 0.5 %; Platelet Count 290 K/uL (130-400); RDW Coefficient of Variation 18.1 % (11.5-14.5); RDW Standard Deviation 57.4 fL (36.4-46.3); Red Blood Count 4.06 M/uL (4.7-6.1); White Blood Count 16.58 K/uL (4.8-10.8)
[2019-03-09] MEDS: ACETYLCYSTEINE 20% INHAL SOLN 30ML***DISPENSED BY RESP. INH SCH ×2 (07:15→19:15)
[2019-03-09] MEDS: ALBUT/IPRATROP 3MG/0.5MG NEB 3 ML VIAL NEB SCH ×4 (07:15→19:15)
[2019-03-09] MEDS: BUDESONIDE 0.5 MG/2 ML VIAL (PULMICORT) INH SCH ×2 (07:15→19:15)
[2019-03-09 07:43] LABS: BUN Creatinine Ratio 12.4 (10-20); Calcium 8.4 mg/dl (8.5-10.1); Creatinine Clr Calc Pharmacy 67.3 ml/min; Est GFR (African American) 80.1; Est GFR (Non-African American) 69.1; Potassium 3.8 mmol/L (3.5-5.1)
[2019-03-09 07:54] LABS: Thyroid Stimulating Hormone 0.218 uIu/ml (0.300-4.500)
[2019-03-09 08:07] LABS: T4 Free Thyroxine 1.55 ng/dl (0.8-1.6)
[2019-03-09] MEDS: OXYCODONE HCL IR 30 MG TAB (IMMEDIATE RELEASE) PO SCH ×3 (09:01→20:40)
[2019-03-09] MEDS: ASPIRIN 81 MG CHEW PO SCH (09:03)
[2019-03-09] MEDS: GABAPENTIN 800 MG TAB PO SCH ×2 (09:03→20:31)
[2019-03-09] MEDS: AMMONIUM LACTATE 12% LOTION 225 GM BTL EXT SCH ×2 (09:03→20:33)
[2019-03-09] MEDS: guaiFENesin 600 MG TABCR PO SCH ×2 (09:04→20:31)
[2019-03-09] MEDS: METOCLOPRAMIDE HCL 10 MG TABLET PO SCH ×3 (09:04→17:45)
[2019-03-09] MEDS: LACTULOSE SYRUP 20 GM/30 ML UDC PO SCH ×3 (09:05→20:30)
[2019-03-09] MEDS: PANTOprazole 40 MG TAB PO SCH ×2 (09:06→20:31)
[2019-03-09] MEDS: FUROSEMIDE 40 MG in SYRINGE 0 ML IV SCH ×2 (09:55→17:44)
--- NOTE | 2019-03-09 13:27 | Hospitalist Progress Note ---
Date of Service March 09, 2019 Assessment & Plan (1) Hypoxia: (2) Pneumonia: (3) Fluid overload: Patient is a 69 yr male with H/O COPD, alcoholic cirrhosis, portal hypertension, esophageal varices, MALT lymphoma, h/o left renal cell carcinoma s/p partial nephrectomy, h/o splenectomy, HTN, hypothyroidism, HLD, chronic anemia, chronic pain presented to ER from [facility] for fever, hypoxia, worsening lower extremity edema and some confusion. Community-acquired pneumonia Volume overload--likely due to cirrhosis Acute on chronic hypoxic respiratory failure H/O COPD --CXR: Cardiomegaly with volume overload, congestive change, and mild to moderate pulmonary edema. 2. The more focal dense infiltrate in the right lower lobe could relate to a greater degree of edema, focal atelectasis, or superimposed infectious infiltrate. Follow-up is advised. 3. Right greater than left pleural effusions --Venous Doppler: negative for DVT --Blood Cx: No growth to date --ECHO: No significant change from prior ECHO --Continue IV Zosyn, nebs --Continue Pulmicort, Mucomyst --Continue IV lasix --Monitor volume status, daily weight, I's and O's --Pulmonary hygiene --Continue current management --Titrate off of oxygen as able (4) Hypokalemia: Likely due to diuretics Replace and monitor electrolytes as needed (5) Cirrhosis: H/O cirrhosis, portal HTN, esophageal varices Reported confusion at [facility]--None while hospitalized Normal ammonia level CT head: No acute intracranial abnormality Continue lactulose (6) 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 Denies any changes, N/V/D Continue PPI, Reglan (7) CAD (coronary artery disease): Continue aspirin, isosorbide (8) Hypothyroidism: Continue levothyroxine (9) Anemia: Chronic anemia. Baseline Hgb: 9-10 Monitor CBC (10) Chronic pain: On high dose narcotics - oxycodone 90mg TID. (this has decreased from 120mg TID in 10/2018) Continue oxycodone, gabapentin DVT Px Heparin SQ Code Status Full Code Disposition Follows with Dr Sinha at [facility] for routine care Subjective Patient is seen and examined at bedside Less cough and shortness of breath subjectively Eager to get discharged Chronic pain is controlled Denies any chest pain, nausea, vomiting, dizziness Guards at bedside Requiring 5 to 6 L of supplemental oxygen to maintain sats Review of Systems Review of Systems: All systems reviewed & are unremarkable except as noted in HPI & below Physical Exam Physical Exam: Physical Exam: Vitals signs as noted above General Appearance:Moderately built and nourished, no apparent distress Head: normocephalic, Atraumatic Eyes: normal inspection, EOMI Neck: supple, Trachea midline Respiratory/Chest: Decreased breath sounds, CTA Cardiovascular: S1, S2, No murmur Abdomen/GI:Soft, Chronic mild tender, Bowel sounds present Extremities/Musculoskelatal:normal inspection, chronic venous stasis, B/L LE edema Neurologic/Psych:AAOX3, grossly no focal neurological deficits Skin: normal color, warm Results & Data Vital Signs (Past 12 Hours) Vital Signs Temp Pulse Pulse Resp BP Pulse Ox 03/09/19 11:45 36.5 C 85 18 126/73 93 03/09/19 07:57 37.3 C 88 20 131/75 90 03/09/19 07:18 90 18 93 03/09/19 04:00 37.1 C 92 H 83 20 155/101 H 94 Laboratory Results Short CBC 03/09/19 Range/Units 06:27 WBC 16.58 H (4.8-10.8) K/uL Hgb 10.9 L (14.0-18.0) g/dL Hct 35.2 L (42-52) % Plt Count 290 (130-400) K/uL BMP 03/09/19 06:27 Sodium 139 Potassium 3.8 Chloride 104 Carbon Dioxide 32 BUN 14 Creatinine 1.10 Glucose 90 Calcium 8.4 L (1) Pneumonia Laterality: right Lung location: lower lobe of lung Pneumonia type: due to unspecified organism Qualified Code(s): J18.9 - Pneumonia, unspecified organism (2) Anemia Anemia type: unspecified type Qualified Code(s): D64.9 - Anemia, unspecified (3) Chronic pain Chronic pain type: other chronic pain Qualified Code(s): G89.29 - Other chronic pain
[2019-03-09] MEDS: MIRTAZAPINE TAB 15 MG TAB PO SCH (20:30)
[2019-03-09] MEDS: TAMSULOSIN HCL 0.4 MG CAP PO SCH (20:31)
[2019-03-10] MEDS: PIPERACILLIN/TAZOBACTAM 3.375 GM in DEXTROSE 5% 100 ML IV SCH ×2 (04:14→11:34)
[2019-03-10] MEDS: LEVOTHYROXINE SODIUM 200 MCG TABLET PO SCH (06:16)
[2019-03-10] MEDS: HEPARIN SOD 5,000 UNIT/0.5 ML VIAL SQ SCH ×2 (06:16→14:39)
[2019-03-10] MEDS: SUCRALFATE 1 GM TAB PO SCH ×2 (06:16→11:35)
[2019-03-10] MEDS: LEVOTHYROXINE SODIUM 50 MCG TABLET PO SCH (06:16)
[2019-03-10] MEDS: ACETYLCYSTEINE 20% INHAL SOLN 30ML***DISPENSED BY RESP. INH SCH (07:16)
[2019-03-10] MEDS: ALBUT/IPRATROP 3MG/0.5MG NEB 3 ML VIAL NEB SCH ×3 (07:16→15:14)
[2019-03-10] MEDS: BUDESONIDE 0.5 MG/2 ML VIAL (PULMICORT) INH SCH (07:17)
[2019-03-10] MEDS: METOCLOPRAMIDE HCL 10 MG TABLET PO SCH ×2 (08:10→12:17)
[2019-03-10] MEDS: guaiFENesin 600 MG TABCR PO SCH (08:11)
[2019-03-10] MEDS: LACTULOSE SYRUP 20 GM/30 ML UDC PO SCH ×2 (08:12→14:48)
[2019-03-10] MEDS: PANTOprazole 40 MG TAB PO SCH (08:12)
[2019-03-10] MEDS: ASPIRIN 81 MG CHEW PO SCH (08:12)
[2019-03-10] MEDS: GABAPENTIN 800 MG TAB PO SCH (08:12)
[2019-03-10] MEDS: ISOSORBIDE MONO EXTENDED REL 30 MG TABCR PO SCH (08:12)
[2019-03-10] MEDS: FUROSEMIDE 40 MG in SYRINGE 0 ML IV SCH (08:13)
[2019-03-10] MEDS: OXYCODONE HCL IR 30 MG TAB (IMMEDIATE RELEASE) PO SCH ×2 (08:20→15:01)
[2019-03-10 08:55] LABS: Hematocrit (blood only) 35.2 % (42-52); Hemoglobin 10.9 g/dL (14.0-18.0); Mean Corpuscular Hemoglobin 26.8 pg (25-34); Mean Corpuscular Volume 86.5 fL (80-100); Mean Platelet Volume 10.4 fL (7.4-10.4); Nucleated RBC # (auto) 0.03 K/uL (0-0); Nucleated RBC % (auto) 0.3 %; Platelet Count 280 K/uL (130-400); RDW Standard Deviation 56.9 fL (36.4-46.3); Red Blood Count 4.07 M/uL (4.7-6.1); White Blood Count 13.02 K/uL (4.8-10.8)
[2019-03-10 09:41] LABS: BUN Creatinine Ratio 11.8 (10-20); Calcium 8.7 mg/dl (8.5-10.1); Creatinine Clr Calc Pharmacy 61.7 ml/min; Est GFR (African American) 72.1; Est GFR (Non-African American) 62.2; Potassium 3.7 mmol/L (3.5-5.1)
[2019-03-10] MEDS: AMMONIUM LACTATE 12% LOTION 225 GM BTL EXT SCH (09:52)
--- NOTE | 2019-03-10 11:17 | Hospitalist Progress Note ---
Date of Service March 10, 2019 Assessment & Plan (1) Hypoxia: (2) Pneumonia: (3) Fluid overload: Patient is a 69 yr male with H/O COPD, alcoholic cirrhosis, portal hypertension, esophageal varices, MALT lymphoma, h/o left renal cell carcinoma s/p partial nephrectomy, h/o splenectomy, HTN, hypothyroidism, HLD, chronic anemia, chronic pain presented to ER from [facility] for fever, hypoxia, worsening lower extremity edema and some confusion. Community-acquired pneumonia Volume overload--likely due to cirrhosis Acute on chronic hypoxic respiratory failure H/O COPD --CXR: Cardiomegaly with volume overload, congestive change, and mild to moderate pulmonary edema. 2. The more focal dense infiltrate in the right lower lobe could relate to a greater degree of edema, focal atelectasis, or superimposed infectious infiltrate. Follow-up is advised. 3. Right greater than left pleural effusions --Venous Doppler: negative for DVT --Blood Cx: No growth to date --ECHO: No significant change from prior ECHO --Continue IV Zosyn, nebs --Continue Pulmicort, Mucomyst --Received IV lasix>> transition to home diuretics --Monitor volume status, daily weight, I's and O's --Continue flutter Valve --2 Step: Needs 3 L of supplemental oxygen with activity only --Plan to transition to p.o. 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 Denies any changes, N/V/D Continue PPI, Reglan (7) CAD (coronary artery disease): Continue aspirin, isosorbide (8) Hypothyroidism: Continue levothyroxine (9) Anemia: Chronic anemia. Baseline Hgb: 9-10 Monitor CBC (10) Chronic pain: On high dose narcotics - oxycodone 90mg TID. (this has decreased from 120mg TID in 10/2018) Continue oxycodone, gabapentin DVT Px Heparin SQ Code Status Full Code Disposition Follows with Dr Sinha at [facility] for routine care Subjective Patient is seen and examined at bedside States feeling well today Eager to get discharged Had 2 step: needs 3 liters of oxygen with activity Cough, SOB much improved Denies any chest pain, nausea, vomiting, dizziness Guards at bedside Offers no other complaints Review of Systems Review of Systems: All systems reviewed & are unremarkable except as noted in HPI & below Physical Exam Physical Exam: Physical Exam: Vitals signs as noted above General Appearance:Moderately built and nourished, no apparent distress Head: normocephalic, Atraumatic Eyes: normal inspection, EOMI Neck: supple, Trachea midline Respiratory/Chest: Decreased breath sounds, CTA Cardiovascular: S1, S2, No murmur Abdomen/GI:Soft, Chronic mild tender, Bowel sounds present Extremities/Musculoskelatal:normal inspection, chronic venous stasis, B/L LE edema improved Neurologic/Psych:AAOX3, grossly no focal neurological deficits Skin: normal color, warm Results & Data Vital Signs (Past 12 Hours) Vital Signs Temp Pulse Pulse Pulse Pulse Pulse Pulse 03/10/19 11:10 03/10/19 10:55 92 H 89 105 H 90 98 H 03/10/19 07:34 36.8 C 03/10/19 07:20 03/10/19 07:10 72 03/10/19 06:31 36.7 C 03/10/19 00:22 85 Pulse Resp Resp Resp Resp Resp Resp 03/10/19 11:10 91 H 18 03/10/19 10:55 24 20 20 18 16 03/10/19 07:34 69 20 03/10/19 07:20 78 18 03/10/19 07:10 03/10/19 06:31 76 20 03/10/19 00:22 BP Pulse Ox Pulse Ox Pulse Ox Pulse Ox Pulse Ox Pulse Ox 03/10/19 11:10 92 03/10/19 10:55 84 L 90 83 L 91 93 03/10/19 07:34 139/81 96 03/10/19 07:20 96 03/10/19 07:10 03/10/19 06:31 129/74 94 03/10/19 00:22 Laboratory Results Short CBC 03/10/19 Range/Units 08:40 WBC 13.02 H (4.8-10.8) K/uL Hgb 10.9 L (14.0-18.0) g/dL Hct 35.2 L (42-52) % Plt Count 280 (130-400) K/uL BMP 03/10/19 08:40 Sodium 136 Potassium 3.7 Chloride 100 Carbon Dioxide 32 BUN 14 Creatinine 1.20 Glucose 110 H Calcium 8.7 (1) Pneumonia Laterality: right Lung location: lower lobe of lung Pneumonia type: due to unspecified organism Qualified Code(s): J18.9 - Pneumonia, unspecified organism (2) Anemia Anemia type: unspecified type Qualified Code(s): D64.9 - Anemia, unspecified (3) Chronic pain Chronic pain type: other chronic pain Qualified Code(s): G89.29 - Other chronic pain
--- NOTE | 2019-03-10 11:30 | Discharge Summary ---
Date of Service March 10, 2019 Admission HPI Per Admitting Provider Pt is 69 y/o M with PMH COPD, alcoholic cirrhosis, portal hypertension, esophageal varices, MALT lymphoma, h/o left renal cell carcinoma s/p partial nephrectomy, h/o splenectomy, HTN, hypothyroidism, HLD, chronic anemia, chronic pain presented to ER from [facility] for fever, hypoxia. Patient with reported temp 100.1 F, P: 100, RR: 18, pulse ox 84% on room air and reported confusion today and was transported to ER. Patient states for the past 4 to 5 days has been feeling generalized weakness and myalgias. Patient denies any noted shortness of breath, chest pain. It is reported that patient was noted to have wheezing at [facility]. Patient reports BLE edema for past several months and reports has been on Bumex. Patient is unsure when last dose of Bumex was. He thinks he has had increased BLE edema. Denies orthopnea or PND. Reports chronic sinus congestion and rhinorrhea and denies any increase. Reports has not been sleeping much past several days and feels tired but reports feeling improved since being in ER. Patient reports chronic abdominal pain denies any increased abdominal pain. Denies any recent vomiting or diarrhea. Reports nausea is controlled with Reglan. Denies diaphoresis, melena, hematochezia, FREIRE, dizziness, syncope, vision changes, neck pain, palpitations, cough, sore throat, choking, otalgia, paresthesias, weakness, rashes, urinary symptoms. Admission Exam Per Admitting Provider General: no acute distress, WDWN Head: normocephalic, atraumatic Eyes: PERRL, EOM's intact, conjunctiva non-injected, +clear tearing, anicteric ENT: normal inspection external ears, nose, mucous membranes moist Neck: supple, trachea midline, non-tender Lungs: R: 18 no retractions on oxymask 5L with O2 sat 97%, +diminished breath sounds, rales bases, scattered wheezing CV: RRR, no murmur, no JVD, 2+ pretibial edema Abd: normal BS, soft, healed surgical incision, mild tenderness to palpation lower abdomen Ext: no calf tenderness, 2+pitting edema Neuro: A&O x 3, no focal deficits noted, normal affect Skin: warm, +dry skin worse to lower extremities Principal Diagnosis Acute on chronic hypoxic respiratory failure Community-acquired pneumonia Volume overload Discharge Data Allergies Allergy/AdvReac Type Severity Reaction Status Date / Time YONNY Inhibitors Allergy Intermediate LIPS SWELL Verified 02/01/19 11:53 Cipro Allergy Mild PER RECORD Verified 09/19/17 13:41 ciprofloxacin Allergy Mild PER RECORD Verified 02/01/19 11:53 lisinopril Allergy Unknown UNKNOWN Verified 02/01/19 11:53 Consultations 03/07/19 14:33 ED Decision to Admit Stat Procedures Performed CXR: Cardiomegaly with volume overload, congestive change, and mild to moderate pulmonary edema. 2. The more focal dense infiltrate in the right lower lobe could relate to a greater degree of edema, focal atelectasis, or superimposed infectious infiltrate. Follow-up is advised. 3. Right greater than left pleural effusions Venous Doppler: negative for DVT Ordered Studies 03/07/19 12:15 CT head/brain wo con Stat US venous doppler LE BI Stat Hospital Course (1) Hypoxia: (2) Pneumonia: (3) Fluid overload: Patient is a 69 yr male with H/O COPD, alcoholic cirrhosis, portal hypertension, esophageal varices, MALT lymphoma, h/o left renal cell carcinoma s/p partial nephrectomy, h/o splenectomy, HTN, hypothyroidism, HLD, chronic anemia, chronic pain presented to ER from [facility] for fever, hypoxia, worsening lower extremity edema and some confusion. Community-acquired pneumonia Volume overload--likely due to cirrhosis Acute on chronic hypoxic respiratory failure H/O COPD --CXR: Cardiomegaly with volume overload, congestive change, and mild to moderate pulmonary edema. 2. The more focal dense infiltrate in the right lower lobe could relate to a greater degree of edema, focal atelectasis, or superimposed infectious infiltrate. Follow-up is advised. 3. Right greater than left pleural effusions --Venous Doppler: negative for DVT --Blood Cx: No growth to date --ECHO: No significant change from prior ECHO --Continue IV Zosyn, nebs --Continue Pulmicort, Mucomyst --Received IV lasix>> transition to home diuretics --Monitor volume status, daily weight, I's and O's --Continue flutter Valve --2 Step: Needs 3 L of supplemental oxygen with activity only --Plan to transition to p.o. antibiotics upon discharge (4) Hypokalemia: Likely due to diuretics Replace and monitor electrolytes as needed (5) Cirrhosis: H/O cirrhosis, portal HTN, esophageal varices Reported confusion at 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 Denies any changes, N/V/D Continue PPI, Reglan (7) CAD (coronary artery disease): Continue aspirin, isosorbide (8) Hypothyroidism: Continue levothyroxine (9) Anemia: Chronic anemia. Baseline Hgb: 9-10 Monitor CBC (10) Chronic pain: On high dose narcotics - oxycodone 90mg TID. (this has decreased from 120mg TID in 10/2018) Continue oxycodone, gabapentin DVT Px Heparin SQ Code Status Full Code Disposition Follows with Dr Sinha at [facility] for routine care Total Time Total Time Spent Total Time Spent (In Minutes): 40 minutes Total Time Includes: Examination of the Patient, Discharge Planning, Medication Reconciliation, Communication With Other Providers and Other Discharge Plan Discharge Items [facility] Reason For Visit: HYPOXIA Discharge Diagnosis: Acute on chronic hypoxic respiratory failure Community-acquired pneumonia Volume overload Activity: Per Instructions section Exercise/Sports: Gradually increase as tolerated Non-emergency contact: Primary Care Provider Call non-emergency contact if: you have any medication questions, your symptoms worsen, your pain is not controlled, your pain is worsening, your pain is unusual for you, your pain is concerning for you and you have a fever Follow-up/Referrals: Nemo SANCHEZ [Primary Care Provider] - Diet: Heart Healthy Addtl Attending Provider Instructions: Follow-up with your primary care physician correctional facility in 1 week Complete the antibiotic course(Augmentin, doxycycline) for 7 more days to comple te antibiotic therapy for pneumonia Use 3 L of supplemental oxygen with activity as advised Seek immediate medical attention if your symptoms reoccur or worsen Your diuretics dose may need to be adjusted by your primary care physician based on your volume status. Follow-up with your physician for further recommendations. Your final blood cultures are pending at the time of discharge. Follow-up with your physician for results. Pending Studies at Discharge: Yes Studies:: Final blood cultures. Stand-Alone Forms: [facility] Skilled Items Patient informed of condition?: Yes Discharge Level of Care: Other Communicable Disease: No Discharge Prognosis: Improving Lines: None Urinary Catheter: No Medications and DC Order Prescriptions: New doxycycline hyclate 100 mg Capsule 100 mg PO BID Qty: 14 RF: 0 amoxicillin-pot clavulanate [Augmentin] 875-125 mg tablet 1 tab PO BID Qty: 14 RF: 0 Continued mirtazapine 30 mg Tablet 30 mg PO HS RF: 0 budesonide 0.5 mg/2 mL Suspension For Nebulization 0.5 mg INHALATION BID RF: 0 ipratropium-albuterol 0.5 mg-3 mg(2.5 mg base)/3 mL Solution For Nebulization 3 ml INHALATION TID RF: 0 sucralfate 1 gram Tablet 1 g PO TID RF: 0 isosorbide mononitrate 30 mg Tablet Extended Release 24 Hr 30 mg PO QAM RF: 0 tamsulosin 0.4 mg Capsule 0.4 mg PO HS RF: 0 levothyroxine 200 mcg Tablet 200 mcg PO QAM RF: 0 pantoprazole 40 mg Tablet,Delayed Release (Dr/Ec) 40 mg PO BID RF: 0 metoclopramide HCl [Reglan] 10 mg Tablet 10 mg PO TID RF: 0 acetylcysteine 200 mg/mL (20 %) Solution 1 ml INHALATION BID RF: 0 guaifenesin [Mucosa] 400 mg Tablet 1,200 mg PO BID RF: 0 bumetanide 2 mg Tablet 2 mg PO DAILY RF: 0 levothyroxine 50 mcg Tablet 50 mcg PO QAM RF: 0 lactulose 10 gram/15 mL Solution 30 ml PO TID RF: 0 ammonium lactate 12 % Cream 1 applic TOPICAL BID RF: 0 gabapentin 800 mg Tablet 800 mg PO BID RF: 0 aspirin 81 mg Tablet,Chewable 81 mg PO DAILY RF: 0 oxycodone 30 mg Tablet 90 mg PO TID RF: 0 Discharge Orders: Discharge Order (Routine); Ordered 03/10/19 Ordered By: Maykel Macedo Admission Data Admit Date/Time: 03/07/19 16:02 Attending Provider: Maykel Macedo Admit Provider: Red Roberts Primary Care Provider: Nemo SANCHEZ Other Providers: Red Roberts Other Interventions: Discharge Summary Assessment (RN) Last Done: 03/10/19 13:19 DC Date/Time DO NOT enter until pt leaves facility: 03/10/19 16:43
[2019-03-10] MEDS ORDERED: FUROSEMIDE 40 MG in SYRINGE 0 ML IV ONE (11:45)
[2019-03-10] MEDS ORDERED: DOXYCYCLINE HYCLATE 100 MG CAP PO SCH (21:00)
[2019-03-11] MEDS ORDERED: BUMETANIDE 1 MG TAB PO SCH (09:00)
== END 2019-03-10 16:43 | DRG 193 ==
LOC: ED 11:49 → SUATTDRO 16:02 → 2W 16:02

== ENCOUNTER 2019-04-03 09:23 | Inpatient (IN) ==
[2019-04-03] MEDS ORDERED: CEFEPIME 2,000 MG/20 ML VIAL IV STA (09:42)
[2019-04-03] MEDS ORDERED: SODIUM CHLORIDE 0.9% 1000ML 1,000 ML IV ONE ×2 (09:42→10:55)
[2019-04-03] MEDS ORDERED: ACETAMINOPHEN 1,000 MG/100 ML VIAL IV STA (09:50)
[2019-04-03 09:58] LABS: Basophils # (auto) 0.05 K/uL (0-0.2); Basophils % (auto) 0.2 %; Eosinophils % (auto) 0.5 %; Hemoglobin 11.4 g/dL (14.0-18.0); Immature Granulocytes # (auto) 0.12 K/uL (0.00-0.02); Immature Granulocytes % (auto) 0.6 %; Lymphocytes # (auto) 3.96 K/uL (1.2-3.4); Lymphocytes % (auto) 19.1 %; Mean Corpuscular Hemoglobin 26.1 pg (25-34); Mean Corpuscular Hgb Conc 30.8 g/dL (32-36); Mean Corpuscular Volume 84.7 fL (80-100); Mean Platelet Volume 10.3 fL (7.4-10.4); Monocytes # (auto) 2.31 K/uL (0.11-0.59); Monocytes % (auto) 11.2 %; Neutrophils # (auto) 14.16 K/uL (1.4-6.5); Neutrophils % (auto) 68.4 %; Platelet Count 305 K/uL (130-400); RDW Coefficient of Variation 17.6 % (11.5-14.5); RDW Standard Deviation 53.6 fL (36.4-46.3); Red Blood Count 4.37 M/uL (4.7-6.1)
[2019-04-03] MEDS ORDERED: ALBUT/IPRATROP 3MG/0.5MG NEB 3 ML VIAL NEB STA ×2 (10:01→10:32)
[2019-04-03] MEDS ORDERED: VANCOMYCIN CONSULT ACTIVE PRN ×2 (10:04→15:07)
[2019-04-03] MEDS ORDERED: VANCOMYCIN HCL 1,750 MG in SODIUM CHLORIDE 0.9% 500 ML IV ONE (10:04)
--- NOTE | 2019-04-03 10:09 | XRay Report ---
SINGLE VIEW CHEST CLINICAL HISTORY: Sepsis. FINDINGS: An AP, portable, upright chest radiograph is compared to study dated 03/07/2019. Correlatio n is made with chest CT dated 04/20/2017. The examination is degraded by portable technique and patient rotation. The heart is enlarged noting atherosclerotic calcification of the thoracic aorta. There i s mild pulmonary vascular congestion. Emphysema and chronic interstitial thickening are similar to pr evious. Airspace consolidation is seen at both lung bases, right greater than left. There are trace p leural effusions. No pneumothorax is seen. The skeletal structures are osteopenic. The bony thorax is grossly intact. Numerous metallic foreign bodies are again seen projecting over the left lower chest . IMPRESSION: 1. Cardiomegaly and emphysema with evidence of mild pulmonary vascular congestion. 2. There is right greater than left bibasilar consolidation and trace pleural effusions. Correlate cl inically for evidence of pneumonia/aspiration pneumonitis. ACT 112: Negative or not required by law. Electronically signed by: Guevara Bryson M.D. 04/03/2019 10:08 AM
[2019-04-03 10:13] LABS: Alanine Aminotransferase 26 U/L (12-78); Albumin Level 2.5 gm/dl (3.4-5.0); Aspartate Aminotransferase 35 U/L (15-37); Blood Urea Nitrogen 20 mg/dl (7-18); Calcium 8.7 mg/dl (8.5-10.1); Carbon Dioxide 33 mmol/L (21-32); Chloride 105 mmol/L (98-107); Creatinine Clr Calc Pharmacy 56.4 ml/min; Est GFR (African American) 63.7; Est GFR (Non-African American) 54.9; Glucose 82 mg/dl (70-99); Magnesium 1.9 mg/dl (1.8-2.4); Potassium 3.3 mmol/L (3.5-5.1); Sodium 141 mmol/L (136-145)
[2019-04-03 10:19] LABS: Albumin Globulin Ratio 0.4 (0.9-2); Alkaline Phosphatase 79 U/L (45-117); Bilirubin,Total 0.5 mg/dl (0.2-1); Globulin 6.3 gm/dl (2.5-4.0); NT Pro B Type Natriuretic Pept 128 pg/ml (0-900); Total Protein 8.8 gm/dl (6.4-8.2); Troponin I < 0.015 ng/ml (0-0.045)
[2019-04-03 10:51] LABS: INR 1.1 (0.9-1.1); Partial Thromboplastin Ratio 0.8; Partial Thromboplastin Time 21.2 Seconds (21.0-31.0); Prothrombin Time 11.5 Seconds (9.0-12.0)
[2019-04-03] MEDS ORDERED: methylPREDNISolone 125 MG/2 ML VIAL IV STA (10:53)
[2019-04-03] MEDS ORDERED: OPTIRAY 320 125ml IV PRN (11:50)
[2019-04-03 11:53] LABS: Influenza A virus by PCR Neg for Influ A (Neg); Influenza B virus by PCR Neg for Influ B (Neg)
--- NOTE | 2019-04-03 11:58 | CT Scan Report ---
CT ANGIOGRAM OF THE CHEST CLINICAL HISTORY: Shortness of breath. Wheezing. Possible acute pulmonary embolism. SEPSIS COMPARISON STUDY: April 2017 TECHNIQUE: Following the IV administration of 120 mL of Optiray-320, CT angiogram of the thorax was p erformed from the thoracic inlet to the lung bases utilizing the pulmonary embolus protocol. Images a re reviewed in the axial, sagittal, and coronal planes. IV contrast was administered without complica tion. MIP imaging was performed. A dose lowering technique was utilized adhering to the principles o f ALARA. CT DOSE: 681.75 mGycm FINDINGS: The visualized portions the upper abdomen demonstrate a 4 mm upper pole right renal calculus. Right hilar lymph nodes are the upper limits of normal in size. There is no pathologic mediastinal ly mphadenopathy. There is no pathologic axillary lymphadenopathy. There is mild dilatation of the ascending thoracic aorta which measures 40 mm. There were no pulmonary artery filling defects to indicate acute pulmonary embolism. No pleural effusions are visualized. There is significant respiratory motion artifact. There is pulmonary emphysema. There are right lower lobe airspace opacities, suspicious for a pneumonia. Dependent left lower lobe airspace opacities co uld be atelectatic or infectious/inflammatory. There is a nonspecific 8 mm right middle lobe opacity. A 3 month follow-up CT scan is recommended. IMPRESSION: 1. Technically limited study secondary to respiratory motion artifact 2. No evidence of acute pulmonary embolism 3. Right lower lobe pulmonary consolidation suspicious for pneumonia 4. Left lower lobe pulmonary airspace opacities, atelectatic versus infectious/inflammatory 5. Nonspecific 8 mm right middle lobe opacity. A 3 month follow-up CT scan is recommended. ACT 112: Negative or not required by law. Electronically signed by: Hal Hernandez M.D. 04/03/2019 11:56 AM
--- NOTE | 2019-04-03 12:02 | CT Scan Report ---
CT head/brain wo con CLINICAL HISTORY: 69 years-old Male presenting with ams. TECHNIQUE: Multidetector CT imaging of the head was performed without the use of intravenous contrast . IV contrast: None. One or more dose lowering techniques were used consistent with the principles of ALARA (as low as reasonably achievable), including automatic exposure control, mA or kV adjustment t o individual patient size, and/or use of iterative reconstruction. COMPARISON: 03/07/2019. CT DOSE (mGy.cm): The estimated cumulative dose is 788.63 mGycm. FINDINGS: [employer] topogram: Unremarkable. Ventricles and sulci normal in size. No hemorrhage. Periventricular and subcortical white matter hypo attenuation, nonspecific but likely indicative of chronic small vessel ischemic change. No acute terr itorial infarct. No mass effect or midline shift. No extra-axial fluid collection. Postsurgical keys es of the sinuses with uncinectomies. Sclerosis of the maxillary sinus reese, right greater than left , indicative of chronic sinusitis. Calvarium intact. IMPRESSION: 1. Chronic small vessel ischemic change. No acute intracranial abnormality. 2. Chronic sinusitis of the maxillary sinuses. ACT 112: Negative or not required by law. Electronically signed by: Dada Rahman M.D. 04/03/2019 12:00 PM
[2019-04-03] MEDS ORDERED: SODIUM CHLORIDE 0.9% 1000ML 500 ML IV ONE (12:12)
[2019-04-03] MEDS ORDERED: LEVOFLOXACIN/D5W 750 MG/150 ML BAG IV STA (12:16)
[2019-04-03 13:13] LABS: Thyroid Stimulating Hormone 0.107 uIu/ml (0.300-4.500)
--- NOTE | 2019-04-03 13:15 | History & Physical Report ---
Date of Service April 03, 2019 Assessment & Plan (1) Acute and chronic respiratory failure with hypoxia: (2) Sepsis: (3) Pneumonia: This is a 69 yr old M who has a known past medical history of COPD, alcoholic liver cirrhosis with portal hypertension and esophageal varices, MALT lymphoma, chronic pain on chronic oxycodone therapy, history of left renal cell CA status post partial nephrectomy, history of splenectomy, HLD, hypothyroidism, GERD, anemia, chronic sinusitis who presents to [facility] ED 2/2 unresponsiveness and lethargy prior to arrival. Pt met Sepsis criteria upon arrival with fever 39.1, wbc 20k lactate 2.9 source: Pneumonia requiring BIPAP received IVF per 30mg/kg protocol received broad spectrum IV antibiotics Vanco, cefepime and levaquin (pt with prior allergy to cipro, "mild rash," ED provider discussed with pharmacy given pt recent admission and risk for pseudomonas benefit outweigh risk for trial with levaquin) admit to PCU continue bipap, wean as tolerated per RT continue broad spectrum antibiotics with IV Vanco, cefepime and levaquin blood culture, urine culture, drug tox screen pending lactate normalized continue IVF +KCL 80cc/hr, pulmonary toilet with budesonide neb, duoneb, Incentive spirometry (4) Hypokalemia: replace, repeat in am (5) Cirrhosis: compensated cirrhosis hx of portal HTN and varices continue PPI, Lactulose NH3 WNL, no signs of hepatic encephalopathy no asterixis (6) COPD (chronic obstructive pulmonary disease): no acute exacerbation continue budesonide, duoneb, mucomyst incentive spirometry received IV solumedrol in ED, no significant wheezing on my exam monitor need for steroid (7) CAD (coronary artery disease): no c/o chest pain troponin wnl continue asa, imdur (8) HTN (hypertension): blood pressure low in setting of Sepsis hold bumex for now resume when able given hx of cirrhosis and chf (9) Neuropathy: on gabapentin hold for now in setting of altered mental status (10) Hypothyroidism: TSH 0.107, Free T4 1.59 recommend repeat in 2 weeks as outpt once over acute illness (11) PVD (peripheral vascular disease): continue ASA (12) Anemia: H&H stable at 11.4 and 37.0 No signs or symptoms of bleeding Likely in setting of chronic disease (13) Chronic pain: pt on high dose narcotic - 90mg TID (this has decreased from 120mg tid in 10/2018) continue oxycodone but hold for sedation, hold gabapentin for now until more arousable (14) 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 A 3 month follow-up CT scan is recommended. (16) DVT prophylaxis: Heparin SQ Disposition: admit to PCU, case management consulted Follow up: PCP at [facility] upon discharge, recommend [address] chest due to 8mm RML nodule Pt was seen and examined in collaboration with Dr. Osorio, please see addendum History of Present Illness Chief Complaint: Found slumped over in shelter cell Primary Care Provider: SCI Nemo This is a 69 yr old M who has a known past medical history of COPD, alcoholic liver cirrhosis with portal hypertension and esophageal varices, MALT lymphoma, chronic pain on chronic oxycodone therapy, history of left renal cell CA status post partial nephrectomy, history of splenectomy, HLD, hypothyroidism, GERD, anemia, chronic sinusitis who presents to [facility] ED 2/2 unresponsiveness and lethargy prior to arrival. Pt was found this a.m. by shelter guards to be slumped over and unresponsive. Hx unable to be obtained by pt due to bipap. Hx obtained from guards at bedside and ED provider. Pt found to be hypoxic saturating in 70s. Presented to ED on 15L nonrebreather and requiring Bipap. In ED initially patient unarousable. He was placed on BiPAP which did improve his cognition. Met criteria for sepsis including white blood cell count 20 K, febrile 39.1 and hypotensive. He received 2 L of IV fluid along with broad-spectrum IV antibiotics vancomycin, cefepime and Levaquin. Chest CT concerning for right lower lobe pulmonary consolidation suspicious for pneumonia, left lower lobe pulmonary airspace opacities, atelectasis versus infectious/inflammatory. Initial lactate was 2.9 but improved 2.0 with IV resuscitation. Influenza was negative. Upon my evaluation guards are at bedside. He was awake and arousable to verbal stimulation on BiPAP. Of significance pt recently hospitalized 03/07/19-03/10/19 2/2 to acute on chronic resp failure, CAP, volume overload likely 2/2 to cirrhosis. He was treated with IV zosyn and transitioned to oral augmentin. Completed course of augmentin but per reports was also placed on doxycycline. Received IV lasix and transitioned to home bumex. 2 step pt met for 3L of supplemental O2 with activity. Allergies Allergy/AdvReac Type Severity Reaction Status Date / Time YONNY Inhibitors Allergy Intermediate LIPS SWELL Verified 04/03/19 09:56 Cipro Allergy Mild PER RECORD Verified 09/19/17 13:41 ciprofloxacin Allergy Mild Mild rash Verified 04/03/19 12:16 lisinopril Allergy Unknown UNKNOWN Verified 04/03/19 09:56 Home Medications Home Medications Medication Instructions Recorded Confirmed Type budesonide 0.5 mg INHALATION BID 03/07/18 04/03/19 History ipratropium-albuterol 3 ml INHALATION TID 03/07/18 04/03/19 History isosorbide mononitrate 30 mg PO QAM 03/07/18 04/03/19 History mirtazapine 30 mg PO HS 03/07/18 04/03/19 History sucralfate 1 g PO AC 03/07/18 04/03/19 History tamsulosin 0.4 mg PO HS 03/07/18 04/03/19 History levothyroxine 200 mcg PO QAM 10/16/18 04/03/19 History acetylcysteine 1 ml INHALATION BID 10/20/18 04/03/19 History guaifenesin [Mucosa] 1,200 mg PO BID 10/20/18 04/03/19 History metoclopramide HCl [Reglan] 10 mg PO TID 02/01/19 04/03/19 History pantoprazole 40 mg PO BID 02/01/19 04/03/19 History ammonium lactate 1 applic TOPICAL BID 03/07/19 04/03/19 History aspirin 81 mg PO DAILY 03/07/19 04/03/19 History bumetanide 2 mg PO DAILY 03/07/19 04/03/19 History gabapentin 800 mg PO BID 03/07/19 04/03/19 History lactulose 30 ml PO TID 03/07/19 04/03/19 History levothyroxine 50 mcg PO QAM 03/07/19 04/03/19 History oxycodone 90 mg PO TID 03/08/19 04/03/19 History amoxicillin-pot clavulanate 1 tab PO BID #14 tab 03/10/19 04/03/19 Rx [Augmentin] Past Med/Surg History Medical History (Updated 04/03/19 @ 13:53 by Aav Núñez PA-C) Anemia (Chronic) CAD (coronary artery disease) (Chronic) Chronic pain Chronic sinusitis (Chronic) Cirrhosis (Chronic) COPD (chronic obstructive pulmonary disease) (Chronic) Esophageal varices (Chronic) 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) GERD (gastroesophageal reflux disease) (Chronic) HLD (hyperlipidemia) (Chronic) HTN (hypertension) (Chronic) Hypothyroidism (Chronic) Malignant neoplasm of kidney (Chronic) Neuropathy (Chronic) Portal hypertension (Chronic) PVD (peripheral vascular disease) (Chronic) Surgical History History of appendectomy (Chronic) History of partial nephrectomy (Chronic) History of splenectomy (Chronic) Family History Mother Hypothyroidism Father Myocardial infarction Social History (Updated 04/03/19 @ 13:21 by Ava Núñez PA-C) Preferred Language: Yakut Communication Ability: Effective Cooler Deliverer Required: No Beliefs That Will Affect Care: None Current Living Situation: Other Current Living Situation Comment: [facility] current occupational status: unemployed Other Information That Helps Us Care for You: Yes Feels Safe at Home: Yes Safety Concerns: Feels Safe At This Time Smoking Status: Current every day smoker Tobacco Type: cigarettes ; Cigarettes Per Day: 12 ; Do You Dip or Chew Tobacco: Yes ; Second Hand Exposure: Yes ; Tobacco Cessation Education Requested by Patient: No Hx Alcohol Use: No Hx Substance Use: Yes substance use type: prescription drug Substance Use Type Other:: Oxycodone 90 mg 3 times daily Review of Systems Review of Systems: All systems reviewed & are unremarkable except as noted in HPI & below Physical Exam Physical Exam: Constitutional: WD/WN, -Turkmen, male, lying in bed on BiPAP, vitals as above, NAD, sitting up in bed, nods yes and no Head: Normocephalic, Atraumatic Eyes: PERRL, conjunctivae normal, anicteric sclerae ENMT: external ear and nose normal, oropharynx unable to examine given BiPAP Neck: trachea midline, normal visual inspection Respiratory: normal respiratory effort, lungs clear to auscultation, no wheeze, rales, rhonchi. Normal insp/exp effort, no accessory muscle use Cardiovascular: RRR, no murmur, trace lower extremity edema, venous stasis changes vessels: no JVD or carotid bruit Chest: normal inspection of chest Abdomen: normal bowel sounds, soft, nontender, no hepatosplenomegaly Musculoskeletal: no cyanosis or clubbing, moves extremities x4 active range of motion Skin: no rashes, warm and dry normal turgor Neurologic: PERRL, EOMI, accommodation nl, no face palsy, no dysarthria CN's II-XI intact bilaterally and moves all extremities Psychiatric: Alert and arousable to verbal stimulation, A&Ox3, euthymic affect Lymphatic: no cervical or axillary lymphadenopathy : deferred Results & Data Vital Signs (Past 12 Hours) Vital Signs Temp Pulse Pulse Resp BP BP Pulse Ox 04/03/19 13:00 74 18 101/59 L 97 04/03/19 11:20 86 18 118/69 96 04/03/19 11:08 89 82 18 94 04/03/19 11:05 84 18 99/65 L 89 L 04/03/19 10:52 89 18 96/63 L 89 L 04/03/19 10:06 104 H 97 04/03/19 09:49 39.1 C H 95 H 18 158/89 H 78 L 04/03/19 09:42 95 H 16 97 Laboratory Results Short CBC 04/03/19 04/03/19 04/03/19 Range/Units 09:45 09:45 09:45 WBC 20.70 H (4.8-10.8) K/uL Hgb 11.4 L (14.0-18.0) g/dL Hct 37.0 L (42-52) % Plt Count 305 (130-400) K/uL Creatinine 1.33 (0.6-1.4) mg/dl Lactate 2.9 H* (0.4-2.0) mmol/L 04/03/19 Range/Units 12:20 WBC (4.8-10.8) K/uL Hgb (14.0-18.0) g/dL Hct (42-52) % Plt Count (130-400) K/uL Creatinine (0.6-1.4) mg/dl Lactate 2.0 (0.4-2.0) mmol/L BMP 04/03/19 09:45 Sodium 141 Potassium 3.3 L Chloride 105 Carbon Dioxide 33 H BUN 20 H Creatinine 1.33 Glucose 82 Calcium 8.7 Cardiac Enzymes 04/03/19 Range/Units 09:45 Troponin I < 0.015 (0-0.045) ng/ml Liver Function 04/03/19 Range/Units 09:45 Total Bilirubin 0.5 (0.2-1) mg/dl AST 35 (15-37) U/L ALT 26 (12-78) U/L Alkaline Phosphatase 79 (45-117) U/L Albumin 2.5 L (3.4-5.0) gm/dl Diagnostic Findings CXR: IMPRESSION: 1. Cardiomegaly and emphysema with evidence of mild pulmonary vascular congestion. 2. There is right greater than left bibasilar consolidation and trace pleural effusions. Correlate clinically for evidence of pneumonia/aspiration pneumonitis. Chest CTA: IMPRESSION: 1. Technically limited study secondary to respiratory motion artifact 2. No evidence of acute pulmonary embolism 3. Right lower lobe pulmonary consolidation suspicious for pneumonia 4. Left lower lobe pulmonary airspace opacities, atelectatic versus infectious/inflammatory 5. Nonspecific 8 mm right middle lobe opacity. A 3 month follow-up CT scan is recommended. Head CT: IMPRESSION: 1. Chronic small vessel ischemic change. No acute intracranial abnormality. 2. Chronic sinusitis of the maxillary sinuses. Medications Administered Levofloxacin/Dextrose (Levaquin/D5w) 750 mg in 150 mls @ 100 mls/hr IV NOW STA Stop: 04/03/19 13:45 Last Admin: 04/03/19 12:38 Dose: 100 mls/hr Documented by: [id number] Ioversol (Optiray 320 125ml) 120 ml IV ONCE PRN PRN Reason: Interaction Checking Stop: 04/07/19 11:49 Last Admin: 04/03/19 11:50 Dose: 120 ml Documented by: [id number] Discontinued Medications Albuterol (Duoneb) 3 ml NEB NOW STA Stop: 04/03/19 10:02 Last Admin: 04/03/19 10:05 Dose: 3 ml Documented by: [id number] Albuterol (Duoneb) 3 ml NEB NOW STA Stop: 04/03/19 10:33 Last Admin: 04/03/19 11:07 Dose: 3 ml Documented by: [id number] Sodium Chloride (Nss 1000ml) 1,000 mls @ 999 mls/hr IV .Q1H1M ONE Stop: 04/03/19 10:42 Last Infusion: 04/03/19 11:19 Dose: 0 mls/hr Documented by: [id number] Admin: 04/03/19 09:57 Dose: 999 mls/hr Documented by: [id number] Cefepime HCl (Maxipime) 2,000 mg in 20 mls @ 5 mls/min IV NOW STA Stop: 04/03/19 09:45 Last Admin: 04/03/19 10:19 Dose: 5 mls/min Documented by: [id number] Acetaminophen (Ofirmev) 1,000 mg in 100 mls @ 400 mls/hr IV NOW STA Stop: 04/03/19 10:04 Last Infusion: 04/03/19 10:38 Dose: 0 mls/hr Documented by: [id number] Admin: 04/03/19 10:19 Dose: 400 mls/hr Documented by: [id number] Vancomycin HCl 1,750 mg/ (Sodium Chloride) 535 mls @ 200 mls/hr IV NOW ONE Stop: 04/03/19 12:44 Last Admin: 04/03/19 10:59 Dose: 200 mls/hr Documented by: [id number] Sodium Chloride (Nss 1000ml) 1,000 mls @ 999 mls/hr IV .Q1H1M ONE Stop: 04/03/19 11:55 Last Infusion: 04/03/19 12:12 Dose: 0 mls/hr Documented by: [id number] Admin: 04/03/19 11:00 Dose: 999 mls/hr Documented by: [id number] Methylprednisolone (Solumedrol) 60 mg IV NOW STA Stop: 04/03/19 10:54 Last Admin: 04/03/19 11:03 Dose: 60 mg Documented by: [id number] ECG Rate (beats per minute): 97 Rhythm: normal sinus Findings: + nonspecific-ST abn Code Status & VTE Plan Code Status Full Code VTE Prophylaxis Plan VTE Prophylaxis will be ordered: Yes Supervising Physician Co-Signing Physician Notes Attending addendum: The patient was seen and examined in the emergency room He came in with acute respiratory failure and now on BiPAP and resting in the ER He was again seen in the telemetry unit He has been talking almost normally and feeling a lot better Complains to have pain secondary to lymphoma for which he has been on narcotics On examination Admitted with high temperature of 39.1 C and increasing white count with evidence of right lower lobe pneumonia and left lower lobe possible atelectasis versus infection Chest-decreased breath sounds both sides, wheezing and crackles especially right side Heart-S1-S2, regular Abdomen-soft, bowel sounds present Extremities-1+ edema bilaterally with chronic skin changes INSECTICIDE EXPERT-alert, awake and oriented. Generally weak Admission labs and imaging studies reviewed CTA did not show any acute pulmonary embolism Has right lower lobe pneumonia Agree with assessment plan as outlined above by ZORAN Miller DR (1) Chronic pain Chronic pain type: other chronic pain Qualified Code(s): G89.29 - Other chronic pain (2) Anemia Anemia type: unspecified type Qualified Code(s): D64.9 - Anemia, unspecified (3) Sepsis Sepsis acute organ dysfunction status: unspecified Sepsis type: sepsis due to unspecified organism Qualified Code(s): A41.9 - Sepsis, unspecified organism (4) Pneumonia Laterality: right Lung location: lower lobe of lung Pneumonia type: due to unspecified organism Qualified Code(s): J18.9 - Pneumonia, unspecified organism
[2019-04-03 13:32] LABS: T4 Free Thyroxine 1.59 ng/dl (0.8-1.6)
[2019-04-03] MEDS ORDERED: ACETAMINOPHEN 325 MG TAB PO PRN (15:07)
[2019-04-03] MEDS ORDERED: ALUMINUM/MAGNESIUM SUSP 30 ML UDC PO PRN (15:07)
[2019-04-03] MEDS ORDERED: POLYETHYLENE (MIRALAX) 17 GM PACK PO PRN (15:07)
[2019-04-03] MEDS ORDERED: ONDANSETRON INJ 2 MG/ML 2 ML VIAL IV PRN (15:07)
[2019-04-03] MEDS ORDERED: CEFEPIME CONSULT ACTIVE SCH (15:07)
[2019-04-03] MEDS ORDERED: BENZONATATE 100 MG CAPSULE PO PRN (15:07)
[2019-04-03] MEDS ORDERED: POTASSIUM CHLORIDE 20 MEQ TABCR PO STA (15:07)
[2019-04-03] MEDS: ALBUT/IPRATROP 3MG/0.5MG NEB 3 ML VIAL NEB SCH ×2 (15:29→19:48)
[2019-04-03] MEDS ORDERED: NSS + 20MEQ KCL 20 MEQ/1,000 ML BAG IV SCH (15:30)
[2019-04-03] MEDS: OXYCODONE HCL IR 30 MG TAB (IMMEDIATE RELEASE) PO SCH ×2 (15:46→21:31)
[2019-04-03] MEDS: METOCLOPRAMIDE HCL 10 MG TABLET PO SCH ×2 (15:46→21:29)
[2019-04-03] MEDS: HEPARIN SOD 5,000 UNIT/0.5 ML VIAL SQ SCH ×2 (15:46→21:30)
[2019-04-03] MEDS: SUCRALFATE 1 GM TAB PO SCH (15:47)
[2019-04-03] MEDS: LACTULOSE SYRUP 20 GM/30 ML UDC PO SCH ×3 (15:57→23:25)
--- NOTE | 2019-04-03 16:32 | Pharmacy Report ---
Pharmacy Abx Initial Consult - Date of Service April 03, 2019 - Pharmacy Dosing Scope Date of Consult: 04/03/19 Consultation requested by: Ava Núñez PA-C Pharmacy is consulted to initiate Vancomycn + Cefepime IV dosing therapy, order appropriate labs and adjust drug dose/frequency. - Subjective The patient is a 69 year old M admitted on 04/03/19 12:47. - Objective Height: 5 ft 8 in Weight: 82.3 kg Vital Signs (Past 12hrs): Vital Signs Temp Pulse Pulse Resp BP BP Pulse Ox 04/03/19 15:09 37 C 64 16 126/72 90 04/03/19 13:00 74 18 101/59 L 97 04/03/19 11:20 86 18 118/69 96 04/03/19 11:08 89 82 18 94 04/03/19 11:05 84 18 99/65 L 89 L 04/03/19 10:52 89 18 96/63 L 89 L 04/03/19 10:06 104 H 97 04/03/19 09:49 39.1 C H 95 H 18 158/89 H 78 L 04/03/19 09:42 95 H 16 97 Lab Results (24hrs): Laboratory Tests (24 Hours) 04/03/19 04/03/19 04/03/19 10:24 09:45 09:45 WBC 20.70 H Neut # (Auto) 14.16 H Creatinine 1.33 Est Cr Clr Drug Dosing 56.4 Procalcitonin 0.23 Micro Results: 04/03/19 09:50 Aerobic Blood Culture - Pending Blood Anaerobic Blood Culture - Pending 04/03/19 09:45 Aerobic Blood Culture - Pending Blood Anaerobic Blood Culture - Pending - Risk Factors for Resistance * Hospitalization for 48 hours or more within the past 90 days * Antimicrobial use within the last 90 days: Zosyn which was converted to Augmentin upon discharge in 02/2019. Also was on PO Doxy. - Assessment & Plan Assessment 69 year old M who- resident of [facility] system currently admitted for Sepsis- pulmonary source. Patient was recently admitted in 02/2019 and treated with Zosyn. Vancomycin and Cefepime ordered for HCAP. Blood cultures x 2 pending. Plan Vancomycin for treatment of HCAP. Vancomycin IV * Estimated PK Parameters: Vd 0.7 L/kg, Tyson 0.051 hr-1, t1/2 13.6 hr * Loading dose: 1750 mg (21.2 mg/kg) IV x1 dose in ED today at 1100. * Maintenance dose: 1500 mg IV (18 mg/kg) every 18 hours started for 0200 AM tonight. * Goal trough level for HCAP: 15 to 20 mcg/mL * Trough Vanc level ordered for 04/06 before dose at 0800 after 3 maintenance doses. Pharmacy will continue to follow and will adjust dose/frequency as necessary. Thank you.
[2019-04-03] MEDS: methylPREDNISolone 40 MG in SYRINGE 0 ML IV SCH (17:12)
--- NOTE | 2019-04-03 17:31 | Electrocardiogram Report ---
Test Reason : Blood Pressure : / mmHG Vent. Rate : 097 BPM Atrial Rate : 096 BPM P-R Int : 000 ms QRS Dur : 080 ms QT Int : 328 ms P-R-T Axes : 000 013 -16 degrees QTc Int : 416 ms Sinus rhythm Septal infarct , age undetermined Abnormal ECG When compared with ECG of 07-MAR-2019 17:13, Inverted T waves have replaced nonspecific T wave abnormality in Lateral leads Confirmed by Kodak Hernandez ([id number]) on 04/03/2019 5:31:00 PM Referred By: Confirmed By:Kodak Hernandez
--- NOTE | 2019-04-03 19:12 | Emergency Department Note ---
Entered by Checo Gilliam acting as a scribe for Jacque Rivas DO History of Present Illness General Chief complaint: Shortness of Breath/Dyspnea Time Seen by Provider: 04/03/19 09:33 Source: patient Limitations: other (clinical condition) History of Present Illness Onset (ago): hour(s) (couple) Location: chest Pain Consistency: + constant Quality: + constant The patient is a 69 year old male who presents to the Emergency Room with complaints of constant SOB starting a couple hours ago. The retirement guards note the patient was found slumped over, unresponsive, with an oxygen sat of 77%. The guards note the patient does not normally wear oxygen. The guards state the patient looks better now than he did before. HPI is limited secondary to clinical condition. Guards state patient was admitted last month for trouble breathing. Paperwork accompanying the patient from the retirement states the patient does have a history of renal cell carcinoma, MALT lymphoma, COPD/emphysema, hypertension, cirrhosis, as well as others. Paperwork also states the patient had recently completed a course of Augmentin, and is still taking doxycycline daily. Home Medications Home Medications Medication Instructions Recorded Confirmed Type budesonide 0.5 mg INHALATION BID 03/07/18 04/03/19 History ipratropium-albuterol 3 ml INHALATION TID 03/07/18 04/03/19 History isosorbide mononitrate 30 mg PO QAM 03/07/18 04/03/19 History mirtazapine 30 mg PO HS 03/07/18 04/03/19 History sucralfate 1 g PO AC 03/07/18 04/03/19 History tamsulosin 0.4 mg PO HS 03/07/18 04/03/19 History levothyroxine 200 mcg PO QAM 10/16/18 04/03/19 History acetylcysteine 1 ml INHALATION BID 10/20/18 04/03/19 History guaifenesin [Mucosa] 1,200 mg PO BID 10/20/18 04/03/19 History metoclopramide HCl [Reglan] 10 mg PO TID 02/01/19 04/03/19 History pantoprazole 40 mg PO BID 02/01/19 04/03/19 History ammonium lactate 1 applic TOPICAL BID 03/07/19 04/03/19 History aspirin 81 mg PO DAILY 03/07/19 04/03/19 History bumetanide 2 mg PO DAILY 03/07/19 04/03/19 History gabapentin 800 mg PO BID 03/07/19 04/03/19 History lactulose 30 ml PO TID 03/07/19 04/03/19 History levothyroxine 50 mcg PO QAM 03/07/19 04/03/19 History oxycodone 90 mg PO TID 03/08/19 04/03/19 History amoxicillin-pot clavulanate 1 tab PO BID #14 tab 03/10/19 04/03/19 Rx [Augmentin] Allergies Allergy/AdvReac Type Severity Reaction Status Date / Time YONNY Inhibitors Allergy Intermediate LIPS SWELL Verified 04/03/19 09:56 Cipro Allergy Mild PER RECORD Verified 09/19/17 13:41 ciprofloxacin Allergy Mild Mild rash Verified 04/03/19 12:16 lisinopril Allergy Unknown UNKNOWN Verified 04/03/19 09:56 Past Med/Surg History Medical History (Updated 04/03/19 @ 13:53 by Ava Núñez PA-C) Anemia (Chronic) CAD (coronary artery disease) (Chronic) Chronic pain Chronic sinusitis (Chronic) Cirrhosis (Chronic) COPD (chronic obstructive pulmonary disease) (Chronic) Esophageal varices (Chronic) 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) GERD (gastroesophageal reflux disease) (Chronic) HLD (hyperlipidemia) (Chronic) HTN (hypertension) (Chronic) Hypothyroidism (Chronic) Malignant neoplasm of kidney (Chronic) Neuropathy (Chronic) Portal hypertension (Chronic) PVD (peripheral vascular disease) (Chronic) Surgical History History of appendectomy (Chronic) History of partial nephrectomy (Chronic) History of splenectomy (Chronic) Family History Mother Hypothyroidism Father Myocardial infarction Social History (Updated 04/03/19 @ 13:21 by Ava Núñez PA-C) Preferred Language: Citizen Of [place] Communication Ability: Effective Fish Processor Required: No Beliefs That Will Affect Care: None Current Living Situation: Other Current Living Situation Comment: [facility] current occupational status: unemployed Other Information That Helps Us Care for You: Yes Feels Safe at Home: Yes Safety Concerns: Feels Safe At This Time Smoking Status: Current every day smoker Tobacco Type: cigarettes ; Cigarettes Per Day: 12 ; Do You Dip or Chew Tobacco: Yes ; Second Hand Exposure: Yes ; Tobacco Cessation Education Requested by Patient: No Hx Alcohol Use: No Hx Substance Use: Yes substance use type: prescription drug Substance Use Type Other:: Oxycodone 90 mg 3 times daily Review of Systems Other (Unobtainable due to clinical condition) Physical Exam Vital Signs Vital Signs - 24 hr 04/03/19 09:42 04/03/19 09:49 04/03/19 10:06 Temperature 39.1 C H Temperature Source Rectal Pulse Rate 95 H 95 H Pulse Rate [Right Finger] 104 H Respiratory Rate 16 18 Respiratory Effort / Characteristics Spontaneous Non-Labored Respiratory Depth Shallow Blood Pressure 158/89 H Blood Pressure [Left Arm] Blood Pressure Mean 112 Blood Pressure Mean [Left Arm] Pulse Oximetry 97 78 L 97 Oxygen Delivery Method BiPAP Room Air Oxymask BiPAP Oxygen Flow Rate 0 Fraction of Inspired Oxygen 100 100 Sepsis Recent Fever Within 48 Hours Yes Sepsis New/Unexplained Change in Mental Status Yes Sepsis Action Taken by Nursing No Action Required Oxygen Flow Rate - Titration 15 Pulse Oximetry Post Tiitration 90 04/03/19 10:52 04/03/19 11:05 04/03/19 11:08 Temperature Temperature Source Pulse Rate 89 Pulse Rate [Right Finger] 89 84 82 Respiratory Rate 18 18 18 Respiratory Effort / Characteristics Non-Labored Spontaneous Respiratory Depth Normal Blood Pressure Blood Pressure [Left Arm] 96/63 L 99/65 L Blood Pressure Mean Blood Pressure Mean [Left Arm] 74 76 Pulse Oximetry 89 L 89 L 94 Oxygen Delivery Method BiPAP BiPAP BiPAP Oxygen Flow Rate Fraction of Inspired Oxygen 60 Sepsis Recent Fever Within 48 Hours Sepsis New/Unexplained Change in Mental Status Sepsis Action Taken by Nursing Oxygen Flow Rate - Titration Pulse Oximetry Post Tiitration 04/03/19 11:20 Temperature Temperature Source Pulse Rate Pulse Rate [Right Finger] 86 Respiratory Rate 18 Respiratory Effort / Characteristics Respiratory Depth Blood Pressure Blood Pressure [Left Arm] 118/69 Blood Pressure Mean Blood Pressure Mean [Left Arm] 85 Pulse Oximetry 96 Oxygen Delivery Method BiPAP Oxygen Flow Rate Fraction of Inspired Oxygen Sepsis Recent Fever Within 48 Hours Sepsis New/Unexplained Change in Mental Status Sepsis Action Taken by Nursing Oxygen Flow Rate - Titration Pulse Oximetry Post Tiitration GENERAL: Minimally responsive. Opens eyes to voice. EYE EXAM: normal conjunctiva, PERRL and EOM's grossly intact OROPHARYNX: no exudate, no erythema, lips, buccal mucosa, and tongue normal and mucous membranes are dry NECK: supple, no nuchal rigidity, no adenopathy, non-tender LUNGS: Clear to auscultation. Normal chest wall mechanics. Diminished breath sounds. Rales in the right. HEART: no murmurs, S1 normal and S2 normal ABDOMEN: abdomen soft, non-tender, normo-active bowel sounds, no masses, no rebound or guarding. BACK: Back is symmetrical on inspection and there is no deformity, no midline tenderness, no CVA tenderness. SKIN: no rashes and no bruising UPPER EXTREMITIES: upper extremities are grossly normal. Nml pulses b/l. No evidence of trauma. LOWER EXTREMITIES: 2+ lower extremity edema. Nml pulses b/l. Chronic skin changes related to edema. No evidence of trauma. NEURO EXAM: Minimally responsive. Opens eyes to voice. Withdraws to pain. Moans. Patient cannot cooperate for any additional neuro testing. Course Course 0934: The patient was evaluated in room A2, and a complete history and physical examination were performed. 0948: Respiratory therapy is seeing the patient now. BiPAP initiated. They will start a nebulizer treatment and attempt to draw blood gas. 1000: I reevaluated the patient. Improved oxygenation and work of breathing on BiPAP, however patient still minimally interactive. 1022: I reevaluated the patient. Patient is slightly more alert. Awakens easily. 1155: I reevaluated the patient. He is much more awake. He will nod and shake his head to answer questions now. 1208: I discussed the patient's case with Ava Velasquez PA-C. Dr. Devon Velasquez Hospitalist will evaluate the patient for further management. 1211: I reevaluated the patient. Vital signs stable. Patient just finished the second liter of fluids. Additional IV fluids will be hung to meet the 30 mL/KG sepsis requirements. Administered Medications Acetylcysteine (Mucomyst 20%) 1 ml INH BIDR [facility] Stop: 05/03/19 18:59 Last Admin: 04/04/19 07:00 Dose: Not Given Documented by: [id number] Admin: 04/03/19 19:54 Dose: Not Given Documented by: [id number] Albuterol (Duoneb) 3 ml NEB QIDR [facility] Stop: 05/03/19 15:06 Last Admin: 04/04/19 15:41 Dose: 3 ml Documented by: [id number] Admin: 04/04/19 11:23 Dose: 3 ml Documented by: [id number] Admin: 04/04/19 06:57 Dose: 3 ml Documented by: [id number] Admin: 04/03/19 19:48 Dose: 3 ml Documented by: [id number] Admin: 04/03/19 15:29 Dose: 3 ml Documented by: [id number] Aspirin (Ecotrin Ectab) 81 mg PO DAILY [facility] Stop: 05/04/19 08:59 Last Admin: 04/04/19 08:14 Dose: 81 mg Documented by: [id number] Budesonide (Pulmicort Respules) 0.5 mg INH BIDR [facility] Stop: 05/03/19 18:59 Last Admin: 04/04/19 06:57 Dose: 0.5 mg Documented by: [id number] Admin: 04/03/19 19:48 Dose: 0.5 mg Documented by: [id number] Guaifenesin (Mucinex) 1,200 mg PO BID [facility] Stop: 05/03/19 20:59 Last Admin: 04/04/19 08:19 Dose: Not Given Documented by: [id number] Admin: 04/03/19 21:29 Dose: 1,200 mg Documented by: [id number] Heparin Sodium (Porcine) (Heparin Sodium (Porcine)) 5,000 units SQ Q8 [facility] Stop: 05/03/19 15:06 Last Admin: 04/04/19 13:34 Dose: 5,000 units Documented by: [id number] Cosigned by: [id number] Admin: 04/04/19 06:40 Dose: 5,000 units Documented by: [id number] Cosigned by: [id number] Admin: 04/03/19 21:30 Dose: 5,000 units Documented by: [id number] Cosigned by: [id number] Admin: 04/03/19 15:46 Dose: 5,000 units Documented by: [id number] Cosigned by: [id number] Isosorbide Mononitrate (Imdur Extended Rel) 30 mg PO QAM [facility] Stop: 05/04/19 08:59 Last Admin: 04/04/19 08:15 Dose: 30 mg Documented by: [id number] Lactulose (Chronulac) 20 gm PO TID [facility] Stop: 05/03/19 15:59 Last Admin: 04/04/19 13:33 Dose: 20 gm Documented by: [id number] Admin: 04/04/19 08:14 Dose: 20 gm Documented by: [id number] Admin: 04/03/19 23:25 Dose: Not Given Documented by: [id number] Admin: 04/03/19 15:57 Dose: 20 gm Documented by: [id number] Levothyroxine Sodium (Synthroid) 200 mcg PO DAILYBB [facility] Stop: 05/04/19 06:29 Last Admin: 04/04/19 06:40 Dose: 200 mcg Documented by: [id number] Levothyroxine Sodium (Synthroid) 50 mcg PO DAILYBB [facility] Stop: 05/04/19 06:29 Last Admin: 04/04/19 06:39 Dose: 50 mcg Documented by: [id number] Metoclopramide HCl (Reglan) 10 mg PO TID [facility] Stop: 05/03/19 15:06 Last Admin: 04/04/19 13:33 Dose: 10 mg Documented by: [id number] Admin: 04/04/19 08:19 Dose: Not Given Documented by: [id number] Admin: 04/03/19 21:29 Dose: 10 mg Documented by: [id number] Admin: 04/03/19 15:46 Dose: 10 mg Documented by: [id number] Mirtazapine (Remeron) 30 mg PO HS [facility] Stop: 05/03/19 20:59 Last Admin: 04/03/19 21:29 Dose: 30 mg Documented by: [id number] Oxycodone HCl (Roxicodone Immediate Rel) 90 mg PO TID [facility] Stop: 04/17/19 15:06 Last Admin: 04/04/19 13:33 Dose: 90 mg Documented by: [id number] Admin: 04/04/19 08:13 Dose: 90 mg Documented by: [id number] Admin: 04/03/19 21:31 Dose: 90 mg Documented by: [id number] Admin: 04/03/19 15:46 Dose: 90 mg Documented by: [id number] Pantoprazole Sodium (Protonix) 40 mg PO BID [facility] Stop: 05/03/19 20:59 Last Admin: 04/04/19 08:15 Dose: 40 mg Documented by: [id number] Admin: 04/03/19 21:29 Dose: 40 mg Documented by: [id number] Sucralfate (Carafate Tab) 1 gm PO AC [facility] Stop: 05/03/19 16:29 Last Admin: 04/04/19 16:43 Dose: 1 gm Documented by: [id number] Admin: 04/04/19 10:08 Dose: 1 gm Documented by: [id number] Admin: 04/04/19 06:39 Dose: 1 gm Documented by: [id number] Admin: 04/03/19 15:47 Dose: 1 gm Documented by: [id number] Tamsulosin HCl (Flomax) 0.4 mg PO HS [facility] Stop: 05/03/19 20:59 Last Admin: 04/03/19 21:29 Dose: 0.4 mg Documented by: [id number] Discontinued Medications Albuterol (Duoneb) 3 ml NEB NOW STA Stop: 04/03/19 10:02 Last Admin: 04/03/19 10:05 Dose: 3 ml Documented by: [id number] Albuterol (Duoneb) 3 ml NEB NOW STA Stop: 04/03/19 10:33 Last Admin: 04/03/19 11:07 Dose: 3 ml Documented by: [id number] Sodium Chloride (Nss 1000ml) 1,000 mls @ 999 mls/hr IV .Q1H1M ONE Stop: 04/03/19 10:42 Last Infusion: 04/03/19 11:19 Dose: 0 mls/hr Documented by: [id number] Admin: 04/03/19 09:57 Dose: 999 mls/hr Documented by: [id number] Cefepime HCl (Maxipime) 2,000 mg in 20 mls @ 5 mls/min IV NOW STA Stop: 04/03/19 09:45 Last Admin: 04/03/19 10:19 Dose: 5 mls/min Documented by: [id number] Acetaminophen (Ofirmev) 1,000 mg in 100 mls @ 400 mls/hr IV NOW STA Stop: 04/03/19 10:04 Last Infusion: 04/03/19 10:38 Dose: 0 mls/hr Documented by: [id number] Admin: 04/03/19 10:19 Dose: 400 mls/hr Documented by: [id number] Vancomycin HCl 1,750 mg/ (Sodium Chloride) 535 mls @ 200 mls/hr IV NOW ONE Stop: 04/03/19 12:44 Last Infusion: 04/03/19 13:42 Dose: 0 mls/hr Documented by: [id number] Admin: 04/03/19 10:59 Dose: 200 mls/hr Documented by: [id number] Sodium Chloride (Nss 1000ml) 1,000 mls @ 999 mls/hr IV .Q1H1M ONE Stop: 04/03/19 11:55 Last Infusion: 04/03/19 12:12 Dose: 0 mls/hr Documented by: [id number] Admin: 04/03/19 11:00 Dose: 999 mls/hr Documented by: [id number] Sodium Chloride (Nss 1000ml) 500 mls @ 999 mls/hr IV .Q31M ONE Stop: 04/03/19 12:42 Last Infusion: 04/03/19 14:11 Dose: 0 mls/hr Documented by: [id number] Admin: 04/03/19 13:30 Dose: 999 mls/hr Documented by: [id number] Levofloxacin/Dextrose (Levaquin/D5w) 750 mg in 150 mls @ 100 mls/hr IV NOW STA Stop: 04/03/19 13:45 Last Infusion: 04/03/19 14:10 Dose: 0 mls/hr Documented by: [id number] Admin: 04/03/19 12:38 Dose: 100 mls/hr Documented by: [id number] Potassium Chloride/Sodium Chloride (Normal Saline W/20 Meq Kcl) 20 meq in 1,000 mls @ 80 mls/hr IV .[id number] [facility] Stop: 04/04/19 03:59 Last Infusion: 04/04/19 05:57 Dose: 0 mls/hr Documented by: [id number] Admin: 04/03/19 15:45 Dose: 80 mls/hr Documented by: [id number] Methylprednisolone 40 mg/ (Syringe) 0.64 mls @ 1.5 mls/min IV Q8H [facility] Stop: 05/03/19 17:59 Last Admin: 04/04/19 10:07 Dose: 1.5 mls/min Documented by: [id number] Admin: 04/04/19 03:04 Dose: 1.5 mls/min Documented by: [id number] Admin: 04/03/19 17:12 Dose: 1.5 mls/min Documented by: [id number] Vancomycin HCl 1,500 mg/ (Sodium Chloride) 530 mls @ 200 mls/hr IV Q18H [facility]; Protocol Stop: 04/11/19 01:59 Last Infusion: 04/04/19 05:58 Dose: 0 mls/hr Documented by: [id number] Admin: 04/04/19 03:08 Dose: 200 mls/hr Documented by: [id number] Cefepime HCl 2,000 mg/ Syringe 20 mls @ 5 mls/min IV Q12H [facility]; Protocol Stop: 04/10/19 21:59 Last Admin: 04/04/19 10:06 Dose: 5 mls/min Documented by: [id number] Admin: 04/03/19 21:30 Dose: 5 mls/min Documented by: [id number] Ioversol (Optiray 320 125ml) 120 ml IV ONCE PRN PRN Reason: Interaction Checking Stop: 04/07/19 11:49 Last Admin: 04/03/19 11:50 Dose: 120 ml Documented by: [id number] Methylprednisolone (Solumedrol) 60 mg IV NOW STA Stop: 04/03/19 10:54 Last Admin: 04/03/19 11:03 Dose: 60 mg Documented by: [id number] Potassium Chloride (Klor-Con M20) 20 meq PO NOW STA Stop: 04/03/19 15:08 Last Admin: 04/03/19 15:46 Dose: 20 meq Documented by: [id number] Critical Care Time Critical Care Time: Yes Total Critical Care Time: 83 I have personally spent 83 minutes of critical care time in the direct management of this patient. This includes bedside care, interpretation of diagnostic studies, and testing, discussion with consultants, patient, and family members, and other required patient management activities. This 83 minutes is in excess of all separately billable procedures. Medical Decision Making Differential Diagnosis Differential diagnoses includes but is not limited to pneumonia, bronchitis, COPD/Asthma exacerbation, pneumothorax, pulmonary embolism, congestive heart failure, acute coronary syndrome Medical Records Attestation: I reviewed the patient's medical records. The patient came to the ED at the end of February. He was diagnosed with pneumonia and was given IV antibiotics. He had an ECHO with a normal EF. He was a full code. He was discharged on Augmentin and finished that course. He is on a course of doxycycline now. Home Medications Current Medication List: was personally reviewed by me Laboratory Data Attestation: I reviewed the patient's lab results. Result diagrams: 04/04/19 05:30 04/04/19 05:30 Lab Results 04/03/19 04/03/19 04/03/19 Range/Units 09:45 09:45 09:45 WBC 20.70 H (4.8-10.8) K/uL RBC 4.37 L (4.7-6.1) M/uL Hgb 11.4 L (14.0-18.0) g/dL Hct 37.0 L (42-52) % MCV 84.7 (80-100) fL MCH 26.1 (25-34) pg MCHC 30.8 L (32-36) g/dL RDW Std Deviation 53.6 H (36.4-46.3) fL RDW Coeff of Alin 17.6 H (11.5-14.5) % Plt Count 305 (130-400) K/uL MPV 10.3 (7.4-10.4) fL Immature Gran % (Auto) 0.6 % Neut % (Auto) 68.4 % Lymph % (Auto) 19.1 % [place] % (Auto) 11.2 % Eos % (Auto) 0.5 % Baso % (Auto) 0.2 % Immature Gran # (Auto) 0.12 H (0.00-0.02) K/uL Neut # (Auto) 14.16 H (1.4-6.5) K/uL Lymph # (Auto) 3.96 H (1.2-3.4) K/uL [place] # (Auto) 2.31 H (0.11-0.59) K/uL Eos # (Auto) 0.10 (0-0.5) K/uL Baso # (Auto) 0.05 (0-0.2) K/uL PT (9.0-12.0) Seconds INR (0.9-1.1) APTT (21.0-31.0) Seconds PTT Ratio Sodium 141 (136-145) mmol/L Potassium 3.3 L (3.5-5.1) mmol/L Chloride 105 (98-107) mmol/L Carbon Dioxide 33 H (21-32) mmol/L Anion Gap 3.0 (3-11) BUN 20 H (7-18) mg/dl Creatinine 1.33 (0.6-1.4) mg/dl Est Cr Clr Drug Dosing 56.4 ml/min Est GFR ( Amer) 63.7 Est GFR (Non-Af Amer) 54.9 BUN/Creatinine Ratio 15.0 (10-20) Glucose 82 (70-99) mg/dl Lactate 2.9 H* (0.4-2.0) mmol/L Calcium 8.7 (8.5-10.1) mg/dl Magnesium 1.9 (1.8-2.4) mg/dl Total Bilirubin 0.5 (0.2-1) mg/dl AST 35 (15-37) U/L ALT 26 (12-78) U/L Alkaline Phosphatase 79 (45-117) U/L Ammonia (11-32) umol/L Troponin I < 0.015 (0-0.045) ng/ml NT-Pro-B Natriuret Pep 128 (0-900) pg/ml Total Protein 8.8 H (6.4-8.2) gm/dl Albumin 2.5 L (3.4-5.0) gm/dl Globulin 6.3 H (2.5-4.0) gm/dl Albumin/Globulin Ratio 0.4 L (0.9-2) Procalcitonin (0-0.5) ng/ml TSH (0.300-4.500) uIu/ml Free T4 (0.8-1.6) ng/dl Influenza Type A (PCR) (Neg) Influenza Type B (PCR) (Neg) 04/03/19 04/03/19 04/03/19 Range/Units 09:45 10:24 10:24 WBC (4.8-10.8) K/uL RBC (4.7-6.1) M/uL Hgb (14.0-18.0) g/dL Hct (42-52) % MCV (80-100) fL MCH (25-34) pg MCHC (32-36) g/dL RDW Std Deviation (36.4-46.3) fL RDW Coeff of Alin (11.5-14.5) % Plt Count (130-400) K/uL MPV (7.4-10.4) fL Immature Gran % (Auto) % Neut % (Auto) % Lymph % (Auto) % [place] % (Auto) % Eos % (Auto) % Baso % (Auto) % Immature Gran # (Auto) (0.00-0.02) K/uL Neut # (Auto) (1.4-6.5) K/uL Lymph # (Auto) (1.2-3.4) K/uL [place] # (Auto) (0.11-0.59) K/uL Eos # (Auto) (0-0.5) K/uL Baso # (Auto) (0-0.2) K/uL PT 11.5 (9.0-12.0) Seconds INR 1.1 (0.9-1.1) APTT 21.2 (21.0-31.0) Seconds PTT Ratio 0.8 Sodium (136-145) mmol/L Potassium (3.5-5.1) mmol/L Chloride (98-107) mmol/L Carbon Dioxide (21-32) mmol/L Anion Gap (3-11) BUN (7-18) mg/dl Creatinine (0.6-1.4) mg/dl Est Cr Clr Drug Dosing ml/min Est GFR ( Amer) Est GFR (Non-Af Amer) BUN/Creatinine Ratio (10-20) Glucose (70-99) mg/dl Lactate (0.4-2.0) mmol/L Calcium (8.5-10.1) mg/dl Magnesium (1.8-2.4) mg/dl Total Bilirubin (0.2-1) mg/dl AST (15-37) U/L ALT (12-78) U/L Alkaline Phosphatase (45-117) U/L Ammonia (11-32) umol/L Troponin I (0-0.045) ng/ml NT-Pro-B Natriuret Pep (0-900) pg/ml Total Protein (6.4-8.2) gm/dl Albumin (3.4-5.0) gm/dl Globulin (2.5-4.0) gm/dl Albumin/Globulin Ratio (0.9-2) Procalcitonin 0.23 (0-0.5) ng/ml TSH 0.107 L (0.300-4.500) uIu/ml Free T4 1.59 (0.8-1.6) ng/dl Influenza Type A (PCR) (Neg) Influenza Type B (PCR) (Neg) 04/03/19 04/03/19 04/03/19 Range/Units 10:24 11:05 12:20 WBC (4.8-10.8) K/uL RBC (4.7-6.1) M/uL Hgb (14.0-18.0) g/dL Hct (42-52) % MCV (80-100) fL MCH (25-34) pg MCHC (32-36) g/dL RDW Std Deviation (36.4-46.3) fL RDW Coeff of Alin (11.5-14.5) % Plt Count (130-400) K/uL MPV (7.4-10.4) fL Immature Gran % (Auto) % Neut % (Auto) % Lymph % (Auto) % [place] % (Auto) % Eos % (Auto) % Baso % (Auto) % Immature Gran # (Auto) (0.00-0.02) K/uL Neut # (Auto) (1.4-6.5) K/uL Lymph # (Auto) (1.2-3.4) K/uL [place] # (Auto) (0.11-0.59) K/uL Eos # (Auto) (0-0.5) K/uL Baso # (Auto) (0-0.2) K/uL PT (9.0-12.0) Seconds INR (0.9-1.1) APTT (21.0-31.0) Seconds PTT Ratio Sodium (136-145) mmol/L Potassium (3.5-5.1) mmol/L Chloride (98-107) mmol/L Carbon Dioxide (21-32) mmol/L Anion Gap (3-11) BUN (7-18) mg/dl Creatinine (0.6-1.4) mg/dl Est Cr Clr Drug Dosing ml/min Est GFR ( Amer) Est GFR (Non-Af Amer) BUN/Creatinine Ratio (10-20) Glucose (70-99) mg/dl Lactate 2.0 (0.4-2.0) mmol/L Calcium (8.5-10.1) mg/dl Magnesium (1.8-2.4) mg/dl Total Bilirubin (0.2-1) mg/dl AST (15-37) U/L ALT (12-78) U/L Alkaline Phosphatase (45-117) U/L Ammonia < 10.0 L (11-32) umol/L Troponin I (0-0.045) ng/ml NT-Pro-B Natriuret Pep (0-900) pg/ml Total Protein (6.4-8.2) gm/dl Albumin (3.4-5.0) gm/dl Globulin (2.5-4.0) gm/dl Albumin/Globulin Ratio (0.9-2) Procalcitonin (0-0.5) ng/ml TSH (0.300-4.500) uIu/ml Free T4 (0.8-1.6) ng/dl Influenza Type A (PCR) Neg for Influ A (Neg) Influenza Type B (PCR) Neg for Influ B (Neg) Imaging Data Radiologist's Impression: Radiology results as stated below per my review and the radiologist's interpretation: SINGLE VIEW CHEST CLINICAL HISTORY: Sepsis. FINDINGS: An AP, portable, upright chest radiograph is compared to study dated 03/07/2019. Correlation is made with chest CT dated 04/20/2017. The examination is degraded by portable technique and patient rotation. The heart is enlarged noting atherosclerotic calcification of the thoracic aorta. There is mild pulmonary vascular congestion. Emphysema and chronic interstitial thickening are similar to previous. Airspace consolidation is seen at both lung bases, right greater than left. There are trace pleural effusions. No pneumothorax is seen. The skeletal structures are osteopenic. The bony thorax is grossly intact. Numerous metallic foreign bodies are again seen projecting over the left lower chest. IMPRESSION: 1. Cardiomegaly and emphysema with evidence of mild pulmonary vascular co ngestion. 2. There is right greater than left bibasilar consolidation and trace pleural effusions. Correlate clinically for evidence of pneumonia/aspiration pneumonitis. ACT 112: Negative or not required by law. Electronically signed by: Guevara Bryson M.D. 04/03/2019 10:[address] ANGIOGRAM OF THE CHEST CLINICAL HISTORY: Shortness of breath. Wheezing. Possible acute pulmonary embolism. SEPSIS COMPARISON STUDY: April 2017 TECHNIQUE: Following the IV administration of 120 mL of Optiray-320, CT angiogram of the thorax was performed from the thoracic inlet to the lung bases utilizing the pulmonary embolus protocol. Images are reviewed in the axial, sagittal, and coronal planes. IV contrast was administered without complication. MIP imaging was performed. A dose lowering technique was utilized adhering to the principles of ALARA. CT DOSE: 681.75 mGycm FINDINGS: The visualized portions the upper abdomen demonstrate a 4 mm upper pole right renal calculus. Right hilar lymph nodes are the upper limits of normal in size. There is no pathologic mediastinal lymphadenopathy. There is no pathologic axillary lymphadenopathy. There is mild dilatation of the ascending thoracic aorta which measures 40 mm. There were no pulmonary artery filling defects to indicate acute pulmonary embolism. No pleural effusions are visualized. There is significant respiratory motion artifact. There is pulmonary emphysema. There are right lower lobe airspace opacities, suspicious for a pneumonia. Dependent left lower lobe airspace opacities could be atelectatic or infectious/inflammatory. There is a nonspecific 8 mm right middle lobe opacity. A 3 month follow-up CT scan is recommended. IMPRESSION: 1. Technically limited study secondary to respiratory motion artifact 2. No evidence of acute pulmonary embolism 3. Right lower lobe pulmonary consolidation suspicious for pneumonia 4. Left lower lobe pulmonary airspace opacities, atelectatic versus infectious/inflammatory 5. Nonspecific 8 mm right middle lobe opacity. A 3 month follow-up CT scan is recommended. ACT 112: Negative or not required by law. Electronically signed by: Hal Hernandez M.D. 04/03/2019 11:[address] head/brain wo con CLINICAL HISTORY: 69 years-old Male presenting with ams. TECHNIQUE: Multidetector CT imaging of the head was performed without the use of intravenous contrast. IV contrast: None. One or more dose lowering techniques were used consistent with the principles of ALARA (as low as reasonably achievable), including automatic exposure control, mA or kV adjustment to individual patient size, and/or use of iterative reconstruction. COMPARISON: 03/07/2019. CT DOSE (mGy.cm): The estimated cumulative dose is 788.63 mGycm. FINDINGS: [employer] topogram: Unremarkable. Ventricles and sulci normal in size. No hemorrhage. Periventricular and subcortical white matter hypoattenuation, nonspecific but likely indicative of chronic small vessel ischemic change. No acute territorial infarct. No mass effect or midline shift. No extra-axial fluid collection. Postsurgical changes of the sinuses with uncinectomies. Sclerosis of the maxillary sinus reese, right greater than left, indicative of chronic sinusitis. Calvarium intact. IMPRESSION: 1. Chronic small vessel ischemic change. No acute intracranial abnormality. 2. Chronic sinusitis of the maxillary sinuses. ACT 112: Negative or not required by law. Electronically signed by: Dada Rahman M.D. 04/03/2019 12:00 PM ECG Data Attestation: I personally reviewed and interpreted this ECG as follows: Indication: + SOB/dyspnea Rate (beats per minute): 97 Rhythm: + sinus rhythm ECG Intervals/blocks: + Normal QRS, + Normal MO and + Normal QT-c ECG [place]: + Normal ECG ST segments: + ST depression (V2 to V5) ECG Findings: + Other (baseline artifact noted) Blood Pressure Blood Pressure Findings: Elevated blood pressure Blood Pressure Disposition: further management by hospitalist REJI Narrative Patient presented due to hypoxia, unresponsive episode from the retirement. Patient here was improved mentation although still minimally responsive, oxygenation improved on a nonrebreather and no significant tachypnea or work of breathing. Patient does have a long and significant past medical history. Patient transitioned to BiPAP upon arrival here, sats improved, and I asked respiratory to initiate a nebulizer treatment as well as obtain a pcgeg-pa-szlo ABG. There was some difficulty obtaining labs, however IV access was obtained initially, chest x-ray obtained, and then an additional attempt at labs was made. ABG was reassuring despite the patient's significant pulmonary history and recent pneumonia, however chest x-ray did show a right-sided infiltrate. Chest x-ray was slightly improved compared to last presentation and admission in February. Sepsis measures were initiated, including IV fluids, cultures, IV Tylenol, and broad-spectrum antibiotics. After review of EMR and patient's recent admission as well as antibiotics taken as an outpatient including patient's current doxycycline, I discussed coverage with the ED clinical pharmacist, and we expanded our coverage for healthcare associated pneumonia with triple coverage. Patient's mentation slowly improved here. Given patient's history of cirrhosis and ammonia level was sent as well, although this was reassuring. I do not suspect hepatic encephalopathy at this time. No evidence on CT imaging for arts, PE, pericardial effusion, dissection. I do not suspect ACS. No ectopy or dysrhythmia noted on telemetry. Patient continued to improve while in the emergency room and case was discussed with hospitalist for additional evaluation and treatment. Patient was made aware of all results and was checked on frequently by myself. Patient received several nebulizer treatments in the emergency room as well. I do not suspect CVA, intracranial hemorrhage, myxedema coma. Patient remained hemodynamically stable in the emergency room. He was given normal saline for volume resuscitation as he did initially appear clinically dehydrated. Patient did have 1 or 2 isolated pressures which seem slightly lower, however on recheck and repositioning, these remained stable. Patient did receive 30 mL/KG of normal saline in the emergency room for volume resuscitation. Impression & Plan Sepsis, Pneumonia, Hypoxia, Altered mental status Discharge Plan Visit Data *Final* Discharge Date/Time: 04/03/19 14:40 Chief Complaint: Shortness of Breath/Dyspnea ED Provider: Jacque Rivas Discharge Problem: Sepsis, Pneumonia, Hypoxia, Altered mental status Patient Disposition: Admitted As Inpatient Discharge Instructions Interventions: ED Discharge Assessment Last Done: 04/03/19 14:40 Discharge Problem: Sepsis Qualifiers: Sepsis type: sepsis due to unspecified organism Sepsis acute organ dysfunction status: unspecified Qualified Code(s): A41.9 - Sepsis, unspecified organism Pneumonia Qualifiers: Pneumonia type: due to unspecified organism Laterality: right Lung location: lower lobe of lung Qualified Code(s): J18.9 - Pneumonia, unspecified organism Altered mental status Qualifiers: Altered mental status type: unspecified Qualified Code(s): R41.82 - Altered mental status, unspecified The scribe's documentation has been prepared under my direction and personally reviewed by me in its entirety. I confirm that the note above accurately reflects all work, treatment, procedures, and medical decision making performed by me.
[2019-04-03] MEDS: BUDESONIDE 0.5 MG/2 ML VIAL (PULMICORT) INH SCH (19:48)
[2019-04-03] MEDS: ACETYLCYSTEINE 20% INHAL SOLN 30ML***DISPENSED BY RESP. INH SCH ×2 (19:49→19:54)
[2019-04-03] MEDS: guaiFENesin 600 MG TABCR PO SCH (21:29)
[2019-04-03] MEDS: MIRTAZAPINE TAB 15 MG TAB PO SCH (21:29)
[2019-04-03] MEDS: TAMSULOSIN HCL 0.4 MG CAP PO SCH (21:29)
[2019-04-03] MEDS: PANTOprazole 40 MG TAB PO SCH (21:29)
[2019-04-03] MEDS: CEFEPIME 2,000 MG in SYRINGE 7.5 ML IV SCH (21:30)
[2019-04-03 22:00] LABS: Appearance Urine Clear (Clear); Bacteria Urine Automated Negative (Negative); Bilirubin Urine Negative (Negative); Blood Urine Negative (Negative); Cast Urine Automated 0 /lpf (0-5); Color Urine Dark Yellow; Glucose Urine UA Negative (Negative); Ketones Urine Negative (Negative); Leukocyte Esterase Urine Negative (Negative); Nitrite Urine Negative (Negative); Protein Urine Trace (Negative); Specific Gravity Urine > 1.045 (1.000-1.030); Urobilinogen Urine Negative (Negative); WBC Urine Automated 0 /hpf (0-5); pH Urine 6.5 (4.5-7.5)
[2019-04-03 22:17] LABS: Amphetamines+Metham, Urine Neg (Neg); Barbiturates, Urine Neg (Neg); Benzodiazepine, Urine Neg (Neg); Cocaine, Urine Neg (Neg); MDMA (Ecstacy), Urine Neg (Neg); Methadone, Urine Neg (Neg); Opiate, Urine Pos (Neg); Phencyclidine, Urine Neg (Neg)
[2019-04-04] MEDS ORDERED: VANCOMYCIN HCL 1,500 MG in SODIUM CHLORIDE 0.9% 500 ML IV SCH (02:00)
[2019-04-04] MEDS: methylPREDNISolone 40 MG in SYRINGE 0 ML IV SCH ×5 (03:04→20:07)
[2019-04-04 06:20] LABS: Hematocrit (blood only) 30.4 % (42-52); Hemoglobin 9.2 g/dL (14.0-18.0); Mean Corpuscular Hemoglobin 25.9 pg (25-34); Mean Corpuscular Hgb Conc 30.3 g/dL (32-36); Mean Corpuscular Volume 85.6 fL (80-100); Mean Platelet Volume 10.5 fL (7.4-10.4); Platelet Count 279 K/uL (130-400); RDW Coefficient of Variation 17.5 % (11.5-14.5); RDW Standard Deviation 54.6 fL (36.4-46.3); Red Blood Count 3.55 M/uL (4.7-6.1); White Blood Count 37.45 K/uL (4.8-10.8)
[2019-04-04] MEDS: SUCRALFATE 1 GM TAB PO SCH ×3 (06:39→16:43)
[2019-04-04] MEDS: LEVOTHYROXINE SODIUM 50 MCG TABLET PO SCH (06:39)
[2019-04-04] MEDS: LEVOTHYROXINE SODIUM 200 MCG TABLET PO SCH (06:40)
[2019-04-04] MEDS: HEPARIN SOD 5,000 UNIT/0.5 ML VIAL SQ SCH ×3 (06:40→20:20)
[2019-04-04 06:54] LABS: Basophils # (auto) 0.02 K/uL (0-0.2); Basophils % (auto) 0.1 %; Hypochromasia Present; Immature Granulocytes # (auto) 0.22 K/uL (0.00-0.02); Immature Granulocytes % (auto) 0.6 %; Lymphocytes # (auto) 2.88 K/uL (1.2-3.4); Lymphocytes % (auto) 7.7 %; Monocytes # (auto) 2.67 K/uL (0.11-0.59); Monocytes % (auto) 7.1 %; Neutrophils # (auto) 31.66 K/uL (1.4-6.5); Neutrophils % (auto) 84.5 %; Polychromasia 1+; Target Cells 1+
[2019-04-04] MEDS: ALBUT/IPRATROP 3MG/0.5MG NEB 3 ML VIAL NEB SCH ×4 (06:57→19:12)
[2019-04-04] MEDS: BUDESONIDE 0.5 MG/2 ML VIAL (PULMICORT) INH SCH ×2 (06:57→19:12)
[2019-04-04] MEDS: ACETYLCYSTEINE 20% INHAL SOLN 30ML***DISPENSED BY RESP. INH SCH ×2 (07:00→19:17)
[2019-04-04 07:01] LABS: Albumin Globulin Ratio 0.4 (0.9-2); Albumin Level 1.9 gm/dl (3.4-5.0); BUN Creatinine Ratio 17.8 (10-20); Bilirubin,Total 0.6 mg/dl (0.2-1); Calcium 8.3 mg/dl (8.5-10.1); Creatinine Clr Calc Pharmacy 65.2 ml/min; Est GFR (African American) 75.9; Est GFR (Non-African American) 65.5; Globulin 5.3 gm/dl (2.5-4.0); Potassium 4.2 mmol/L (3.5-5.1); Total Protein 7.2 gm/dl (6.4-8.2)
[2019-04-04] MEDS ORDERED: VANCOMYCIN TROUGH ONE (07:30)
[2019-04-04] MEDS: OXYCODONE HCL IR 30 MG TAB (IMMEDIATE RELEASE) PO SCH ×3 (08:13→20:14)
[2019-04-04] MEDS: LACTULOSE SYRUP 20 GM/30 ML UDC PO SCH ×3 (08:14→20:08)
[2019-04-04] MEDS: ASPIRIN 81 MG ECTAB PO SCH (08:14)
[2019-04-04] MEDS: guaiFENesin 600 MG TABCR PO SCH ×3 (08:15→20:11)
[2019-04-04] MEDS: PANTOprazole 40 MG TAB PO SCH ×2 (08:15→20:06)
[2019-04-04] MEDS: METOCLOPRAMIDE HCL 10 MG TABLET PO SCH ×4 (08:15→20:05)
[2019-04-04] MEDS: ISOSORBIDE MONO EXTENDED REL 30 MG TABCR PO SCH (08:15)
[2019-04-04] MEDS: CEFEPIME 2,000 MG in SYRINGE 7.5 ML IV SCH ×2 (10:06→17:53)
--- NOTE | 2019-04-04 12:59 | Pharmacy Report ---
Pharmacy Abx Dose Short Note - Date of Service April 04, 2019 - Assessment & Plan Assessment 69 year old M receiving vancomycin, cefepime for pneumonia. Patient's white count increased today to 37, afebrile since admission tmax 39.1, blood cultures currently negative at 24 hours. MRSA nasal swab is negative. Plan Vancomycin * CrCl estimate today 65.2, estimated half life 12 hours. Will adjust to 1250 mg q12H based on population kinetics. * Check trough on 04/06 @ 0530 Cefepime * adjusted to q8H for CrCl >60 ml/min Pharmacy will continue to follow and will adjust dose/frequency as necessary. Thank you.
[2019-04-04] MEDS: VANCOMYCIN HCL 1,250 MG in SODIUM CHLORIDE 0.9% 250 ML IV SCH (17:42)
[2019-04-04] MEDS: GENTAMICIN PRN (17:46)
--- NOTE | 2019-04-04 17:58 | Hospitalist Progress Note ---
Date of Service April 04, 2019 Assessment & Plan (1) Acute and chronic respiratory failure with hypoxia: (2) Sepsis: (3) Pneumonia: Patient is a 69 yr male with H/O COPD, alcoholic liver cirrhosis with portal hypertension and esophageal varices, MALT lymphoma, chronic pain on chronic ox ycodone therapy, left renal cell CA S/P partial nephrectomy, H/O splenectomy, HLD, hypothyroidism, GERD, anemia, chronic sinusitis who presents with Unresponsiveness and lethargy prior to arrival and was found be febrile and hypoxic on presentation. Acute on chronic respiratory failure with hypoxia Sepsis Multifocal pneumonia H/O COPD --CTA:No evidence of acute pulmonary embolism. Right lower lobe pulmonary consolidation suspicious for pneumonia. Left lower lobe pulmonary airspace opacities, atelectatic versus infectious/inflammatory. Nonspecific 8 mm right middle lobe opacity. A 3 month follow-up CT scan is recommended. --Lactate levels normalized with IV fluids --Blood Cx:pending Continue IV vancomycin, cefepime Day #2 --Received IV fluids --Continue supplemental oxygen as needed --Titrate down IV steroids as able --Continue Nebs (4) Hypokalemia: Normal magnesium levels Replete electrolytes as needed (5) Cirrhosis: H/O Portal HTN and varices Currently no signs of decompensation Normal ammonia levels continue PPI, Lactulose (6) COPD (chronic obstructive pulmonary disease): continue budesonide, duoneb, mucomyst incentive spirometry Titrate down IV steroids as able (7) CAD (coronary artery disease): Denies chest pain troponin wnl continue asa, imdur (8) HTN (hypertension): Blood pressure relatively low Hold Bumex for now Monitor volume status and resume diuretics as able (9) Neuropathy: Gabapentin currently held secondary to lethargy on presentation May need to resume at a lower dose when able (10) Hypothyroidism: TSH 0.107, Free T4 1.59 Needs repeat thyroid function test in 2 weeks as outpatient (11) PVD (peripheral vascular disease): continue ASA (12) Anemia: Hemoglobin at baseline Monitor CBC (13) Chronic pain: Patient is on Oxycodone 90mg TID Dose was decreased from 120mg tid on 10/2018) Hold for excess sedation We will adjust medication doses if needed (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 A 3 month follow-up CT scan is recommended. (16) DVT prophylaxis: Heparin SQ Disposition: Follow up: PCP at [facility] upon discharge, recommend [address] chest due to 8mm RML nodule Subjective Patient is seen and examined at bedside States feeling better today Denies any cough, SOB subjectively Requires 6 liters of supplemental oxygen to maintain Sas " I am a mouth breather always" Also denies any chest pain, nausea, abd pain, dizziness No fever today Guards at bedside Review of Systems Review of Systems: All systems reviewed & are unremarkable except as noted in HPI & below Physical Exam Physical Exam: Physical Exam: Vitals signs as noted above General Appearance:Moderately built and nourished, chronic ill appearing, no apparent distress Head: normocephalic, Atraumatic Eyes: normal inspection, EOMI Neck: supple, Trachea midline Respiratory/Chest: Decreased breath sounds, B/L crackles/wheezes, No accessory muscle use Cardiovascular: S1, S2, No murmur Abdomen/GI:Soft, Mild LLQ tender (Chronic) , Bowel sounds present Extremities/Musculoskelatal:normal inspection, 1+ B/L LE edema Neurologic/Psych:AAOX3, grossly no focal neurological deficits Skin: normal color, warm Results & Data Vital Signs (Past 12 Hours) Vital Signs Temp Pulse Pulse Resp BP Pulse Ox 04/04/19 15:50 36.4 C L 75 19 106/68 90 04/04/19 15:41 75 18 92 04/04/19 15:30 80 04/04/19 11:49 37.0 C 87 20 107/73 92 04/04/19 11:25 78 18 89 L 04/04/19 07:43 36.9 C 72 18 124/64 92 04/04/19 07:00 64 18 98 Laboratory Results Short CBC 04/04/19 Range/Units 05:30 WBC 37.45 H* D (4.8-10.8) K/uL Hgb 9.2 L (14.0-18.0) g/dL Hct 30.4 L (42-52) % Plt Count 279 (130-400) K/uL BMP 04/04/19 05:30 Sodium 141 Potassium 4.2 D Chloride 112 H Carbon Dioxide 27 BUN 20 H Creatinine 1.15 Glucose 100 H Calcium 8.3 L Liver Function 04/04/19 Range/Units 05:30 Total Bilirubin 0.6 (0.2-1) mg/dl AST 22 (15-37) U/L ALT 21 (12-78) U/L Alkaline Phosphatase 63 (45-117) U/L Albumin 1.9 L (3.4-5.0) gm/dl Urine 04/03/19 Range/Units 21:47 Urine Color Dark Yellow Urine Appearance Clear (Clear) Urine pH 6.5 (4.5-7.5) Ur Specific [place] > 1.045 H (1.000-1.030) Urine Protein Trace H (Negative) Urine Glucose (UA) Negative (Negative) (1) Sepsis Sepsis acute organ dysfunction status: unspecified Sepsis type: sepsis due to unspecified organism Qualified Code(s): A41.9 - Sepsis, unspecified organism (2) Pneumonia Laterality: right Lung location: lower lobe of lung Pneumonia type: due to unspecified organism Qualified Code(s): J18.9 - Pneumonia, unspecified organism (3) Anemia Anemia type: unspecified type Qualified Code(s): D64.9 - Anemia, unspecified (4) Chronic pain Chronic pain type: other chronic pain Qualified Code(s): G89.29 - Other chronic pain
[2019-04-04] MEDS: MIRTAZAPINE TAB 15 MG TAB PO SCH (20:07)
[2019-04-04] MEDS: TAMSULOSIN HCL 0.4 MG CAP PO SCH (20:08)
[2019-04-05] MEDS: CEFEPIME 2,000 MG in SYRINGE 7.5 ML IV SCH (03:36)
[2019-04-05] MEDS ORDERED: ACETAMINOPHEN 325 MG TAB PO PRN (05:56)
[2019-04-05] MEDS: HEPARIN SOD 5,000 UNIT/0.5 ML VIAL SQ SCH (06:18)
[2019-04-05] MEDS: LEVOTHYROXINE SODIUM 200 MCG TABLET PO SCH (06:18)
[2019-04-05] MEDS: VANCOMYCIN HCL 1,250 MG in SODIUM CHLORIDE 0.9% 250 ML IV SCH (06:18)
[2019-04-05] MEDS: LEVOTHYROXINE SODIUM 50 MCG TABLET PO SCH (06:18)
[2019-04-05] MEDS: ACETYLCYSTEINE 20% INHAL SOLN 30ML***DISPENSED BY RESP. INH SCH (07:09)
[2019-04-05] MEDS: BUDESONIDE 0.5 MG/2 ML VIAL (PULMICORT) INH SCH (07:09)
[2019-04-05] MEDS: ALBUT/IPRATROP 3MG/0.5MG NEB 3 ML VIAL NEB SCH (07:09)
[2019-04-05] MEDS: SUCRALFATE 1 GM TAB PO SCH (07:29)
[2019-04-05 07:40] LABS: BUN Creatinine Ratio 20.2 (10-20); Calcium 8.9 mg/dl (8.5-10.1); Creatinine Clr Calc Pharmacy 69.5 ml/min; Est GFR (African American) 78.4; Est GFR (Non-African American) 67.6; Potassium 3.6 mmol/L (3.5-5.1)
[2019-04-05 08:00] LABS: Hematocrit (blood only) 33.9 % (42-52); Hemoglobin 10.5 g/dL (14.0-18.0); Mean Corpuscular Hemoglobin 26.5 pg (25-34); Mean Corpuscular Volume 85.6 fL (80-100); Mean Platelet Volume 10.4 fL (7.4-10.4); Nucleated RBC # (auto) 0.07 K/uL (0-0); Nucleated RBC % (auto) 0.2 %; Platelet Count 292 K/uL (130-400); RDW Coefficient of Variation 17.7 % (11.5-14.5); RDW Standard Deviation 54.6 fL (36.4-46.3); Red Blood Count 3.96 M/uL (4.7-6.1); White Blood Count 34.34 K/uL (4.8-10.8)
[2019-04-05 08:17] LABS: Basophils # (auto) 0.02 K/uL (0-0.2); Basophils % (auto) 0.1 %; Hypochromasia Present; Immature Granulocytes # (auto) 0.25 K/uL (0.00-0.02); Immature Granulocytes % (auto) 0.7 %; Lymphocytes % (auto) 11.1 %; Monocytes # (auto) 3.49 K/uL (0.11-0.59); Monocytes % (auto) 10.2 %; Neutrophils # (auto) 26.78 K/uL (1.4-6.5); Neutrophils % (auto) 77.9 %; Target Cells 1+
[2019-04-05] MEDS: GENTAMICIN PRN (08:27)
[2019-04-05] MEDS: OXYCODONE HCL IR 30 MG TAB (IMMEDIATE RELEASE) PO SCH (08:28)
[2019-04-05] MEDS: ASPIRIN 81 MG ECTAB PO SCH (08:28)
[2019-04-05] MEDS: LACTULOSE SYRUP 20 GM/30 ML UDC PO SCH (08:28)
[2019-04-05] MEDS: PANTOprazole 40 MG TAB PO SCH (08:29)
[2019-04-05] MEDS: METOCLOPRAMIDE HCL 10 MG TABLET PO SCH ×2 (08:29→08:33)
[2019-04-05] MEDS: ISOSORBIDE MONO EXTENDED REL 30 MG TABCR PO SCH (08:29)
[2019-04-05] MEDS: methylPREDNISolone 40 MG in SYRINGE 0 ML IV SCH (08:29)
[2019-04-05] MEDS: guaiFENesin 600 MG TABCR PO SCH ×2 (08:29→08:33)
[2019-04-05] MEDS ORDERED: GABAPENTIN 800 MG TAB PO SCH (09:00)
--- NOTE | 2019-04-05 09:26 | Discharge Summary ---
Date of Service April 05, 2019 Admission HPI Per Admitting Provider This is a 69 yr old M who has a known past medical history of COPD, alcoholic liver cirrhosis with portal hypertension and esophageal varices, MALT lymphoma, chronic pain on chronic oxycodone therapy, history of left renal cell CA status post partial nephrectomy, history of splenectomy, HLD, hypothyroidism, GERD, anemia, chronic sinusitis who presents to [facility] ED 2/2 unresponsiveness and lethargy prior to arrival. Pt was found this a.m. by longterm guards to be slumped over and unresponsive. Hx unable to be obtained by pt due to bipap. Hx obtained from guards at bedside and ED provider. Pt found to be hypoxic saturating in 70s. Presented to ED on 15L nonrebreather and requiring Bipap. In ED initially patient unarousable. He was placed on BiPAP which did improve his cognition. Met criteria for sepsis including white blood cell count 20 K, febrile 39.1 and hypotensive. He received 2 L of IV fluid along with broad-spectrum IV antibiotics vancomycin, cefepime and Levaquin. Chest CT concerning for right lower lobe pulmonary consolidation suspicious for pneumonia, left lower lobe pulmonary airspace opacities, atelectasis versus infectious/inflammatory. Initial lactate was 2.9 but improved 2.0 with IV resuscitation. Influenza was negative. Upon my evaluation guards are at bedside. He was awake and arousable to verbal stimulation on BiPAP. Of significance pt recently hospitalized 03/07/19-03/10/19 2/2 to acute on chronic resp failure, CAP, volume overload likely 2/2 to cirrhosis. He was treated with IV zosyn and transitioned to oral augmentin. Completed course of augmentin but per reports was also placed on doxycycline. Received IV lasix and transitioned to home bumex. 2 step pt met for 3L of supplemental O2 with activity. Admission Exam Per Admitting Provider Physical Exam Physical Exam: Constitutional: WD/WN, -Czech, male, lying in bed on BiPAP, vitals as above, NAD, sitting up in bed, nods yes and no Head: Normocephalic, Atraumatic Eyes: PERRL, conjunctivae normal, anicteric sclerae ENMT: external ear and nose normal, oropharynx unable to examine given BiPAP Neck: trachea midline, normal visual inspection Respiratory: normal respiratory effort, lungs clear to auscultation, no wheeze, rales, rhonchi. Normal insp/exp effort, no accessory muscle use Cardiovascular: RRR, no murmur, trace lower extremity edema, venous stasis changes vessels: no JVD or carotid bruit Chest: normal inspection of chest Abdomen: normal bowel sounds, soft, nontender, no hepatosplenomegaly Musculoskeletal: no cyanosis or clubbing, moves extremities x4 active range of motion Skin: no rashes, warm and dry normal turgor Neurologic: PERRL, EOMI, accommodation nl, no face palsy, no dysarthria CN's II-XI intact bilaterally and moves all extremities Psychiatric: Alert and arousable to verbal stimulation, A&Ox3, euthymic affect Lymphatic: no cervical or axillary lymphadenopathy : deferred Principal Diagnosis Acute on chronic respiratory failure with hypoxia Sepsis Multifocal pneumonia Discharge Data Allergies Allergy/AdvReac Type Severity Reaction Status Date / Time YONNY Inhibitors Allergy Intermediate LIPS SWELL Verified 04/03/19 09:56 Cipro Allergy Mild PER RECORD Verified 09/19/17 13:41 ciprofloxacin Allergy Mild Mild rash Verified 04/03/19 12:16 lisinopril Allergy Unknown UNKNOWN Verified 04/03/19 09:56 Consultations 04/03/19 12:13 ED Decision to Admit Stat 04/03/19 15:07 Consult Case Management - Discharge Planning Routine Procedures Performed CTA:No evidence of acute pulmonary embolism. Right lower lobe pulmonary consolidation suspicious for pneumonia. Left lower lobe pulmonary airspace op acities, atelectatic versus infectious/inflammatory. Nonspecific 8 mm right middle lobe opacity. A 3 month follow-up CT scan is recommended. CT head: Chronic small vessel ischemic change. No acute intracranial abnormality. Chronic sinusitis of the maxillary sinuses. Ordered Studies 04/03/19 10:07 CT angio chest PE protocol Stat CT head/brain wo con Stat Hospital Course (1) Acute and chronic respiratory failure with hypoxia: (2) Sepsis: (3) Pneumonia: Patient is a 69 yr male with H/O COPD, alcoholic liver cirrhosis with portal hypertension and esophageal varices, MALT lymphoma, chronic pain on chronic oxycodone therapy, left renal cell CA S/P partial nephrectomy, H/O splenectomy, HLD, hypothyroidism, GERD, anemia, chronic sinusitis who presents with Unresponsiveness and lethargy prior to arrival and was found be febrile and hypoxic on presentation. Acute on chronic respiratory failure with hypoxia Sepsis Multifocal pneumonia H/O COPD --CTA:No evidence of acute pulmonary embolism. Right lower lobe pulmonary consolidation suspicious for pneumonia. Left lower lobe pulmonary airspace opacities, atelectatic versus infectious/inflammatory. Nonspecific 8 mm right middle lobe opacity. A 3 month follow-up CT scan is recommended. --Lactate levels normalized with IV fluids --Blood Cx: No growth to date --Sputum culture: Pending Continue IV vancomycin, cefepime Day #3 --Received IV fluids --Continue supplemental oxygen as needed --Saturating 90% on room air --Titrate down IV Solu-Medrol to 40 mg daily --Continue Nebs --Leukocytosis still significantly high --Patient prefers to sign AGAINST MEDICAL ADVICE despite explaining the risks and consequences of being discharged untreated (4) Hypokalemia: Normal magnesium levels Replete electrolytes as needed (5) Cirrhosis: H/O Portal HTN and varices Currently no signs of decompensation Normal ammonia levels continue PPI, Lactulose (6) COPD (chronic obstructive pulmonary disease): continue budesonide, duoneb, mucomyst incentive spirometry On IV Solu-Medrol (7) CAD (coronary artery disease): Denies chest pain troponin wnl continue asa, imdur (8) HTN (hypertension): Blood pressure relatively low on presentation Hold Bumex for now Monitor volume status and resume diuretics as able Blood pressure improved today (9) Neuropathy: Gabapentin initially held secondary to lethargy on presentation Restarted gabapentin at lower dose--400 mg twice daily (10) Hypothyroidism: TSH 0.107, Free T4 1.59 Needs repeat thyroid function test in 2 weeks as outpatient (11) PVD (peripheral vascular disease): continue ASA (12) Anemia: Hemoglobin at baseline Monitor CBC (13) Chronic pain: Patient is on Oxycodone 90mg TID Dose was decreased from 120mg tid on 10/2018) Hold for excess sedation We will adjust medication doses if needed (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 A 3 month follow-up CT scan is recommended. (16) DVT prophylaxis: Heparin SQ Disposition: Follow up: PCP at [facility] upon discharge, recommend [address] chest due to 8mm RML nodule Patient signs out AGAINST MEDICAL ADVICE Total Time Total Time Spent Total Time Spent (In Minutes): 30 minutes Total Time Includes: Examination of the Patient, Discharge Planning, Medication Reconciliation, Communication With Other Providers and Other Discharge Plan Discharge Items Patient Disposition: Against Medical Advice Reason For Visit: SEPSIS,ACUTE HYPOXIC RESPITRATORY FAILURE,HCAP Discharge Diagnosis: Acute on chronic respiratory failure with hypoxia Sepsis Multifocal pneumonia Activity: Per Instructions section Non-emergency contact: Primary Care Provider Call non-emergency contact if: you have any medication questions, your symptoms worsen, your pain is not controlled, your pain is worsening, your pain is unusual for you, your pain is concerning for you and you have a fever Follow-up/Referrals: [facility] [Primary Care Provider] - Diet: Heart Healthy Addtl Attending Provider Instructions: Signed against medical advice Pending Studies at Discharge: Yes Studies:: Blood Cultures, Sputum Culture Stand-Alone Forms: [facility] Narvalous, Smoking Cessation Medications and DC Order Prescriptions: No Action mirtazapine 30 mg Tablet 30 mg PO HS RF: 0 budesonide 0.5 mg/2 mL Suspension For Nebulization 0.5 mg INHALATION BID RF: 0 ipratropium-albuterol 0.5 mg-3 mg(2.5 mg base)/3 mL Solution For Nebulization 3 ml INHALATION TID RF: 0 sucralfate 1 gram Tablet 1 g PO AC RF: 0 isosorbide mononitrate 30 mg Tablet Extended Release 24 Hr 30 mg PO QAM RF: 0 tamsulosin 0.4 mg Capsule 0.4 mg PO HS RF: 0 levothyroxine 200 mcg Tablet 200 mcg PO QAM RF: 0 pantoprazole 40 mg Tablet,Delayed Release (Dr/Ec) 40 mg PO BID RF: 0 metoclopramide HCl [Reglan] 10 mg Tablet 10 mg PO TID RF: 0 acetylcysteine 200 mg/mL (20 %) Solution 1 ml INHALATION BID RF: 0 guaifenesin [Mucosa] 400 mg Tablet 1,200 mg PO BID RF: 0 bumetanide 2 mg Tablet 2 mg PO DAILY RF: 0 levothyroxine 50 mcg Tablet 50 mcg PO QAM RF: 0 lactulose 10 gram/15 mL Solution 30 ml PO TID RF: 0 ammonium lactate 12 % Cream 1 applic TOPICAL BID RF: 0 gabapentin 800 mg Tablet 800 mg PO BID RF: 0 aspirin 81 mg Tablet,Chewable 81 mg PO DAILY RF: 0 oxycodone 30 mg Tablet 90 mg PO TID RF: 0 amoxicillin-pot clavulanate [Augmentin] 875-125 mg tablet 1 tab PO BID Qty: 14 RF: 0 Discharge Orders: Left Against Medical Advice (Routine); Ordered 04/05/19 Ordered By: Maykel Macedo Admission Data Admit Date/Time: 04/03/19 12:47 Attending Provider: Maykel Macedo Admit Provider: Luly Osorio Primary Care Provider: [facility] Other Providers: Luly Osorio Other Interventions: Discharge Summary Assessment (RN) Last Done: 04/05/19 10:05 DC Date/Time DO NOT enter until pt leaves facility: 04/05/19 10:00
--- NOTE | 2019-04-05 09:26 | Hospitalist Progress Note ---
Date of Service April 05, 2019 Assessment & Plan (1) Acute and chronic respiratory failure with hypoxia: (2) Sepsis: (3) Pneumonia: Patient is a 69 yr male with H/O COPD, alcoholic liver cirrhosis with portal hypertension and esophageal varices, MALT lymphoma, chronic pain on chronic ox ycodone therapy, left renal cell CA S/P partial nephrectomy, H/O splenectomy, HLD, hypothyroidism, GERD, anemia, chronic sinusitis who presents with Unresponsiveness and lethargy prior to arrival and was found be febrile and hypoxic on presentation. Acute on chronic respiratory failure with hypoxia Sepsis Multifocal pneumonia H/O COPD --CTA:No evidence of acute pulmonary embolism. Right lower lobe pulmonary consolidation suspicious for pneumonia. Left lower lobe pulmonary airspace opacities, atelectatic versus infectious/inflammatory. Nonspecific 8 mm right middle lobe opacity. A 3 month follow-up CT scan is recommended. --Lactate levels normalized with IV fluids --Blood Cx: No growth to date --Sputum culture: Pending Continue IV vancomycin, cefepime Day #3 --Received IV fluids --Continue supplemental oxygen as needed --Saturating 90% on room air --Titrate down IV Solu-Medrol to 40 mg daily --Continue Nebs --Leukocytosis still significantly high --Patient prefers to sign AGAINST MEDICAL ADVICE despite explaining the risks and consequences of being discharged untreated (4) Hypokalemia: Normal magnesium levels Replete electrolytes as needed (5) Cirrhosis: H/O Portal HTN and varices Currently no signs of decompensation Normal ammonia levels continue PPI, Lactulose (6) COPD (chronic obstructive pulmonary disease): continue budesonide, duoneb, mucomyst incentive spirometry On IV Solu-Medrol (7) CAD (coronary artery disease): Denies chest pain troponin wnl continue asa, imdur (8) HTN (hypertension): Blood pressure relatively low on presentation Hold Bumex for now Monitor volume status and resume diuretics as able Blood pressure improved today (9) Neuropathy: Gabapentin initially held secondary to lethargy on presentation Restarted gabapentin at lower dose--400 mg twice daily (10) Hypothyroidism: TSH 0.107, Free T4 1.59 Needs repeat thyroid function test in 2 weeks as outpatient (11) PVD (peripheral vascular disease): continue ASA (12) Anemia: Hemoglobin at baseline Monitor CBC (13) Chronic pain: Patient is on Oxycodone 90mg TID Dose was decreased from 120mg tid on 10/2018) Hold for excess sedation We will adjust medication doses if needed (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 A 3 month follow-up CT scan is recommended. (16) DVT prophylaxis: Heparin SQ Disposition: Follow up: PCP at [facility] upon discharge, recommend [address] chest due to 8mm RML nodule Patient signs out AGAINST MEDICAL ADVICE Subjective Patient is seen and examined at bedside Patient states having significant shortness of breath with minimal exertion Reports less cough Complains of chronic neuropathic pain Denies any chest pain, dizziness, nausea Wants to be discharged today Explained that he is unstable to be discharged medically but patient prefers to sign AGAINST MEDICAL ADVICE Saturating 90% on room air today Nurse practitioner at [facility] was informed of the patient's condition. Review of Systems Review of Systems: All systems reviewed & are unremarkable except as noted in HPI & below Physical Exam Physical Exam: Physical Exam: Vitals signs as noted above General Appearance:Moderately built and nourished, chronic ill appearing, no apparent distress Head: normocephalic, Atraumatic Eyes: normal inspection, EOMI Neck: supple, Trachea midline Respiratory/Chest: Decreased breath sounds, CTA Cardiovascular: S1, S2, No murmur Abdomen/GI:Soft, Mild LLQ tender (Chronic) , Bowel sounds present Extremities/Musculoskelatal:normal inspection, 1+ B/L LE edema Neurologic/Psych:AAOX3, grossly no focal neurological deficits Skin: normal color, warm Results & Data Vital Signs (Past 12 Hours) Vital Signs Temp Pulse Resp BP Pulse Ox 04/05/19 08:00 37.0 C 105 H 18 160/83 H 95 04/05/19 07:11 107 H 18 90 04/05/19 03:04 37.0 C 81 19 117/88 92 04/04/19 23:46 37.0 C 86 19 141/79 H 91 Laboratory Results Short CBC 04/05/19 04/05/19 Range/Units 06:30 07:41 WBC Cancelled 34.34 H* Hgb Cancelled 10.5 L Hct Cancelled 33.9 L Plt Count Cancelled 292 BMP 04/05/19 06:30 Sodium 136 Potassium 3.6 Chloride 106 Carbon Dioxide 26 BUN 23 H Creatinine 1.12 Glucose 123 H Calcium 8.9 (1) Sepsis Sepsis acute organ dysfunction status: unspecified Sepsis type: sepsis due to unspecified organism Qualified Code(s): A41.9 - Sepsis, unspecified organism (2) Pneumonia Laterality: right Lung location: lower lobe of lung Pneumonia type: due to unspecified organism Qualified Code(s): J18.9 - Pneumonia, unspecified organism (3) Anemia Anemia type: unspecified type Qualified Code(s): D64.9 - Anemia, unspecified (4) Chronic pain Chronic pain type: other chronic pain Qualified Code(s): 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
[2019-04-06] MEDS ORDERED: VANCOMYCIN TROUGH ONE ×2 (05:30→07:30)
[2019-04-06] MEDS ORDERED: methylPREDNISolone 40 MG in SYRINGE 0 ML IV SCH (09:00)
[2019-04-07 08:56] LABS: Codeine Urine NEGATIVE ng/mL (<50); Hydrocodone Urine NEGATIVE ng/mL (<50); Hydromor Urine NEGATIVE ng/mL (<50); Morphine Urine NEGATIVE ng/mL (<50); Norhydrocodone Conf Ur NEGATIVE ng/mL (<50); Noroxycodone Urine >10000 ng/mL (<50); Oxycodone Urine 9530 ng/mL (<50); Oxymorph Urine 8040 ng/mL (<50)
== END 2019-04-05 10:00 | disposition left against medical advice (07) | DRG 871 ==
LOC: ED 09:23 → SUATTDRO 12:47 → 2E 12:47

== ENCOUNTER 2019-09-16 12:47 | Inpatient (IN) ==
[2019-09-16] MEDS ORDERED: SODIUM CHLORIDE 0.9% 1000ML 500 ML IV ONE (13:07)
[2019-09-16] MEDS ORDERED: OCTREOTIDE ACETATE 50 MCG in SYRINGE 9.5 ML IV STA (13:10)
[2019-09-16] MEDS ORDERED: PANTOprazole 80 MG in DEXTROSE 5% 100 ML IV ONE (13:10)
[2019-09-16] MEDS ORDERED: ONDANSETRON 4 MG OD TAB ONE (13:11)
[2019-09-16] MEDS ORDERED: OCTREOTIDE ACETATE 500 MCG in 0.9 % SODIUM CHLORIDE 100 ML IV SCH (13:15)
--- NOTE | 2019-09-16 13:19 | Emergency Department Note ---
History of Present Illness General Chief complaint: Referred by Doctor Stated complaint: REF'D FOR BLOOD TRANSFUSION Time Seen by Provider: 09/16/19 13:03 History of Present Illness Provider complaint: Shortness of breath Onset (ago): day(s) 2 Associated symptoms: + nausea/vomiting and + shortness of breath 69-year-old -[place] prisoner presents emergency department for shortness of breath. Patient reports that he is been feeling increasingly short of breath for the last 2 days. Patient also reports some mild abdominal pain. He also reports increasing vomiting. He states he vomits all the time. He denies any hematemesis or coffee-ground emesis. He denies any melena or he matochezia. Home Medications Home Medications Medication Instructions Recorded Confirmed Type isosorbide mononitrate 30 mg PO QAM 03/07/18 09/16/19 History sucralfate 1 g PO TID 03/07/18 09/16/19 History tamsulosin 0.4 mg PO HS 03/07/18 09/16/19 History levothyroxine 200 mcg PO QAM 10/16/18 09/16/19 History pantoprazole 40 mg PO DAILY 02/01/19 09/16/19 History aspirin 81 mg PO DAILY 03/07/19 09/16/19 History bumetanide 2 mg PO DAILY 03/07/19 09/16/19 History gabapentin 800 mg PO TID 03/07/19 09/16/19 History lactulose 30 ml PO TID 03/07/19 09/16/19 History levothyroxine 50 mcg PO QAM 03/07/19 09/16/19 History oxycodone 120 mg PO TID 03/08/19 09/16/19 History ciclesonide [Alvesco] 1 puff INHALATION BID 05/08/19 09/16/19 History guaifenesin [Mucosa] 1,200 mg PO BID 05/08/19 09/16/19 History mirtazapine 45 mg PO HS 05/08/19 09/16/19 History aluminum hydrox-magnesium carb 30 ml PO QID 08/07/19 09/16/19 History [Gaviscon] docusate sodium 100 mg PO BID 08/07/19 09/16/19 History ibrutinib [Imbruvica] 420 mg PO DAILY 08/07/19 09/16/19 History potassium chloride 40 meq PO TID 08/07/19 09/16/19 History promethazine 25 mg PO QID PRN 08/07/19 09/16/19 History vitamin E 1 applic TOPICAL BID 08/07/19 09/16/19 History dicyclomine 20 mg PO TID 09/16/19 09/16/19 History diphenhydramine HCl 25 mg PO HS 09/16/19 09/16/19 History ketorolac 30 mg IM TID 09/16/19 09/16/19 History levalbuterol tartrate [Xopenex HFA] 2 inh INHALATION QID 09/16/19 09/16/19 History menthol [Blue Gel] 1 applic TOPICAL TID PRN 09/16/19 09/16/19 History methocarbamol [Robaxin-750] 750 mg PO BID 09/16/19 09/16/19 History Allergies Allergy/AdvReac Type Severity Reaction Status Date / Time lisinopril Allergy Severe UNKNOWN Verified 09/16/19 13:57 YONNY Inhibitors Allergy Intermediate LIPS SWELL Verified 09/16/19 13:57 Cipro Allergy Mild PER RECORD Verified 09/19/17 13:41 ciprofloxacin Allergy Mild Mild rash Verified 09/16/19 13:57 Past Med/Surg History Medical History Anemia (Chronic) CAD (coronary artery disease) (Chronic) Cholelithiasis without cholecystitis Chronic pain Chronic sinusitis (Chronic) 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 COPD (chronic obstructive pulmonary disease) (Chronic) Esophageal varices (Chronic) 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) GERD (gastroesophageal reflux disease) (Chronic) HLD (hyperlipidemia) (Chronic) HTN (hypertension) (Chronic) Hypothyroidism (Chronic) Malignant neoplasm of kidney (Chronic) Left side- s/p partial nephrectomy Neuropathy (Chronic) Portal hypertension (Chronic) PVD (peripheral vascular disease) (Chronic) Surgical History History of appendectomy (Chronic) History of partial nephrectomy (Chronic) History of splenectomy (Chronic) Hx of colonoscopy Family History Mother Hypothyroidism Father Myocardial infarction Social History Preferred Language: [place] Communication Ability: Effective Roller Cleaner Required: No Beliefs That Will Affect Care: None Current Living Situation: Other Current Living Situation Comment: [facility] current occupational status: unemployed Feels Safe at Home: Yes Smoking Status: Former smoker Tobacco Type: cigarettes ; Cigarettes Per Day: 12 ; Second Hand Exposure: Yes ; Hx Alcohol Use: No Hx Substance Use: No Review of Systems A total of 10 systems reviewed and were otherwise negative Physical Exam Vital Signs Vital Signs - 24 hr 09/16/19 12:49 09/16/19 13:08 09/16/19 13:09 Temperature 37.0 C Temperature Source Oral Pulse Rate 94 H 110 H 88 Pulse Rate [Right Finger] Pulse Rate from SpO2 Sensor 88 87 Respiratory Rate 18 Respiratory Depth Normal Blood Pressure 109/65 120/83 Blood Pressure [Right Arm] Blood Pressure Mean 79 91 Blood Pressure Mean [Right Arm] Pulse Oximetry 86 L 92 93 Oxygen Delivery Method Room Air Nasal Cannula Nasal Cannula Oxygen Flow Rate 2 2 Sepsis Recent Fever Within 48 Hours No Sepsis New/Unexplained Change in Mental Status No Sepsis Action Taken by Nursing No Action Required 09/16/19 13:30 09/16/19 13:42 09/16/19 13:45 Temperature Temperature Source Pulse Rate 86 88 Pulse Rate [Right Finger] Pulse Rate from SpO2 Sensor Respiratory Rate Respiratory Depth Blood Pressure 120/83 Blood Pressure [Right Arm] Blood Pressure Mean 91 Blood Pressure Mean [Right Arm] Pulse Oximetry 92 Oxygen Delivery Method Nasal Cannula Oxygen Flow Rate Sepsis Recent Fever Within 48 Hours Sepsis New/Unexplained Change in Mental Status Sepsis Action Taken by Nursing 09/16/19 13:59 09/16/19 14:00 09/16/19 14:30 Temperature Temperature Source Pulse Rate 83 97 H 81 Pulse Rate [Right Finger] Pulse Rate from SpO2 Sensor 76 84 Respiratory Rate Respiratory Depth Blood Pressure 115/74 124/67 126/89 Blood Pressure [Right Arm] Blood Pressure Mean 84 100 102 Blood Pressure Mean [Right Arm] Pulse Oximetry 95 Oxygen Delivery Method Nasal Cannula Oxygen Flow Rate 2 Sepsis Recent Fever Within 48 Hours Sepsis New/Unexplained Change in Mental Status Sepsis Action Taken by Nursing 09/16/19 15:30 09/16/19 15:45 09/16/19 16:00 Temperature 37.0 C Temperature Source Oral Pulse Rate 78 74 73 Pulse Rate [Right Finger] Pulse Rate from SpO2 Sensor 78 76 73 Respiratory Rate 16 14 16 Respiratory Depth Blood Pressure 115/75 124/72 Blood Pressure [Right Arm] Blood Pressure Mean 85 83 Blood Pressure Mean [Right Arm] Pulse Oximetry 92 94 95 Oxygen Delivery Method Oxygen Flow Rate 2 Sepsis Recent Fever Within 48 Hours Sepsis New/Unexplained Change in Mental Status Sepsis Action Taken by Nursing 09/16/19 16:01 09/16/19 16:16 Temperature 37.1 C Temperature Source Oral Pulse Rate 77 Pulse Rate [Right Finger] 79 Pulse Rate from SpO2 Sensor 76 Respiratory Rate 15 20 Respiratory Depth Blood Pressure Blood Pressure [Right Arm] 129/99 Blood Pressure Mean Blood Pressure Mean [Right Arm] 109 Pulse Oximetry 93 93 Oxygen Delivery Method Room Air Oxygen Flow Rate Sepsis Recent Fever Within 48 Hours Sepsis New/Unexplained Change in Mental Status Sepsis Action Taken by Nursing Physical Exam GENERAL: He is oriented to person, place, and time. He appears well-developed and well-nourished. He does not appear distressed. HENT: Exam performed. - Head: Normocephalic and atraumatic. - Right Ear: External ear normal. No mastoid tenderness. - Left Ear: External ear normal. No mastoid tenderness. - Mouth/Throat: The oropharynx is clear and moist. No trismus in the jaw. No dental abscesses or uvula swelling. No oropharyngeal exudate or tonsillar abscesses. EYES: Conjunctivae and EOM are normal. Pupils are equal, round, and reactive to light. Right eye exhibits no discharge. Left eye exhibits no discharge. No scleral icterus. NECK: Normal range of motion. Neck supple. No JVD present. No spinous process tenderness present. No carotid bruit present. No rigidity. No tracheal deviation and normal range of motion present. No Brudzinski's sign and no Kernig's sign noted. CV: Normal rate, regular rhythm, normal heart sounds and intact distal pulses. There is no peripheral edema. Palpable radial pulses bue. PULM/CHEST: Effort normal and breath sounds normal. No respiratory distress. No stridor. He has no wheezes. He has no rales. - Chest Wall: He exhibits no tenderness. ABD: The abdomen is soft. Bowel sounds are normal. He has no distension. No mass is present. There is no tenderness. There is no rebound, no guarding, no Oscar's sign and no tenderness at McBurney's point. Rovsig negative. Rectal: Hemoccult positive MUSC/SKEL: Normal range of motion. There is no peripheral edema, tenderness or deformity. LYMPH: No cervical adenopathy. NEURO: He is alert and oriented to person, place, and time. He has normal strength. No cranial nerve deficit or sensory deficit. Coordination and gait normal. GCS eye subscore is 4. GCS verbal subscore is 5. GCS motor subscore is 6. Cerebellar tests wnl. SKIN: Skin is warm and dry. He is not diaphoretic. PSYCH: He has a normal mood and affect. Behavior is normal. Judgment and thought content normal. Procedures EJ/Peripheral Line Arm L: Time Out Performed: Yes Skin Cleansed in Sterile Fashion: Yes Size (gauge): 20 IV Secured and Dressing Applied: Yes Patient Tolerated Procedure: well Additional Comments: Ultrasound was used to placed a peripheral IV in the left basilic vein. Course Course 1250: Patient was found to have abnormal vital signs in the waiting room. I asked charge nurse Glo to bring the patient back to the room immediately. She states there is an extreme shortage of nursing staff and there are no current rooms available. I instructed her to bring the patient immediately to the resuscitation bay. Patient was seen in room A1 and had complete history and physical were performed. Patient has a history of esophageal varices, alcoholism, cirrhosis of the liver, COPD, and sepsis. Patient was placed on supervisory aide and continuous pulse ox. Patient's pulse ox was 86% on room air. Patient reports that he does not wear any oxygen at baseline. Patient had 2 L of oxygen nasal cannula applied and his oxygen saturation subsequently improved. Cardiac monitoring: An order was placed for continuous cardiac monitoring. The monitor shows a rate of 90 with sinus rhythm 1520: Vital signs stable. Hemoglobin is low at 7.4. Labs show mild leukocytosis of 13.62. Mild hypokalemia 3.3. Kidney function is elevated at 1.54 up from baseline. Patient was started on Protonix bolus and Protonix drip given his GI bleed as well as octreotide bolus and octreotide drip given his history of esophageal varices. Patient will be transfused 1 unit packed red blood cells and admitted to the hospital service. Administered Medications Sodium Chloride (Nss) 500 mls @ 125 mls/hr IV .Q4H KRISTIAN Stop: 10/16/19 13:14 Last Admin: 09/16/19 14:09 Dose: 125 mls/hr Documented by: [id number] Pantoprazole Sodium 40 mg/ (Dextrose) 100 mls @ 20 mls/hr IV Q5H KRISTIAN Stop: 10/16/19 13:14 Last Admin: 09/16/19 14:08 Dose: 8 mg/hr, 20 mls/hr Documented by: [id number] Octreotide Acetate 500 mcg/ (Sodium Chloride) 105 mls @ 10.5 mls/hr IV .Q10H KRISTIAN Stop: 10/16/19 13:14 Last Admin: 09/16/19 14:09 Dose: 50 mcg/hr, 10.5 mls/hr Documented by: [id number] Discontinued Medications Hydromorphone HCl (Dilaudid) 1 mg IV NOW STA Stop: 09/16/19 15:14 Last Admin: 09/16/19 15:33 Dose: 1 mg Documented by: [id number] Sodium Chloride (Nss 1000ml) 500 mls @ 999 mls/hr IV .Q31M ONE Stop: 09/16/19 13:37 Last Infusion: 09/16/19 15:24 Dose: 0 mls/hr Documented by: [id number] Admin: 09/16/19 14:09 Dose: 999 mls/hr Documented by: [id number] Pantoprazole Sodium 80 mg/ (Dextrose) 120 mls @ 400 mls/hr IV NOW ONE Stop: 09/16/19 13:27 Last Infusion: 09/16/19 15:24 Dose: 0 mls/hr Documented by: [id number] Admin: 09/16/19 14:08 Dose: 400 mls/hr Documented by: [id number] Octreotide Acetate 50 mcg/ (Syringe) 10 mls @ 3 mls/min IV ONE STA Stop: 09/16/19 13:13 Last Admin: 09/16/19 14:08 Dose: 3 mls/min Documented by: [id number] Ondansetron HCl (Zofran Odt) Confirm Administered Dose 4 mg .ROUTE .STK-MED ONE Stop: 09/16/19 13:12 Last Admin: 09/16/19 13:42 Dose: 4 mg Documented by: [id number] Ondansetron HCl (Zofran) Confirm Administered Dose 4 mg .ROUTE .STK-MED ONE Stop: 09/16/19 14:05 Last Admin: 09/16/19 14:30 Dose: 4 mg Documented by: [id number] Critical Care Time Critical Care Time: Yes Total Critical Care Time: 43 I have personally spent greater than 43 minutes of critical care time in the direct management of this patient. This includes bedside care, interpretation of diagnostic studies, and testing, discussion with consultants, patient, and family members, and other required patient management activities. This 43 minutes is in excess of all separately billable procedures. Medical Decision Making Laboratory Data Result diagrams: 09/16/19 13:58 09/16/19 13:58 Lab Results 09/16/19 09/16/19 09/16/19 Range/Units 13:58 13:58 13:58 WBC 13.62 H (4.8-10.8) K/uL RBC 3.41 L (4.7-6.1) M/uL Hgb 7.4 L (14.0-18.0) g/dL POC Hgb (14.0-18.0) g/dl Hct 25.7 L (42-52) % POC Hct (42-52) % MCV 75.4 L (80-100) fL MCH 21.7 L (25-34) pg MCHC 28.8 L (32-36) g/dL RDW Std Deviation 50.5 H (36.4-46.3) fL RDW Coeff of Alin 18.5 H (11.5-14.5) % Plt Count 317 (130-400) K/uL MPV 10.1 (7.4-10.4) fL Absolute Nucleated RBC 3.94 H (0-0) K/uL Nucleated RBC % (auto) 28.9 % Neutrophils % (Manual) 47.0 % Lymphocytes % (Manual) 37.5 % Monocytes % (Manual) 13.5 % Eosinophils % (Manual) 1.0 % Basophils % (Manual) 1.0 % Neutrophils # (Manual) 6.40 (1.4-6.5) K/uL Total Absolute Neuts 6.40 (1.4-6.5) K/uL Lymphocytes # (Manual) 5.11 H (1.2-3.4) K/uL Total Abs Lymphocytes 5.11 H (1.2-3.4) K/uL Monocytes # (Manual) 1.84 H (0.11-0.59) K/uL Eosinophils # (Manual) 0.14 (0-0.5) K/uL Basophils # (Manual) 0.14 (0-0.2) K/uL Giant Platelets 2+ Polychromasia 1+ Hypochromasia Present Target Cells 2+ Schistocytes 1+ PT 11.7 (9.0-12.0) Seconds INR 1.1 (0.9-1.1) APTT 21.8 (21.0-31.0) Seconds PTT Ratio 0.8 VBG pH (7.36-7.41) VBG pCO2 (38-50) mmHg VBG pO2 mmHg VBG HCO3 mmol/L VBG O2 Saturation % VBG Base Excess mEq/L Barometric Pressure mm/Hg POC Sodium (135-144) mmol/L Sodium (136-145) mmol/L POC Potassium (3.3-5.0) mmol/L Potassium (3.5-5.1) mmol/L POC Chloride (101-112) mmol/L Chloride (98-107) mmol/L Carbon Dioxide (21-32) mmol/L POC Total CO2 (24-31) mmol/L Anion Gap (3-11) POC Anion Gap (16-25) mmol/L POC BUN (7-18) mg/dl BUN (7-18) mg/dl Creatinine (0.6-1.4) mg/dl POC Creatinine (0.6-1.3) mg/dl Est Cr Clr Drug Dosing Est GFR ( Amer) Est GFR (Non-Af Amer) BUN/Creatinine Ratio (10-20) Glucose (70-99) mg/dl POC Glucose (other) (70-99) mg/dl Lactate (0.4-2.0) mmol/L Calcium (8.5-10.1) mg/dl POC Ioniz Calcium Mamta (1.12-1.32) mmol/l Magnesium (1.8-2.4) mg/dl Total Bilirubin (0.2-1) mg/dl Direct Bilirubin (0-0.2) mg/dl AST (15-37) U/L ALT (12-78) U/L Alkaline Phosphatase (45-117) U/L Troponin I (0-0.045) ng/ml Total Protein (6.4-8.2) gm/dl Albumin (3.4-5.0) gm/dl Lipase (73-393) U/L Procalcitonin (0-0.5) ng/ml Blood Type A Positive Antibody Screen NEGATIVE Crossmatch See Detail 09/16/19 09/16/19 09/16/19 Range/Units 13:58 13:58 13:58 WBC (4.8-10.8) K/uL RBC (4.7-6.1) M/uL Hgb (14.0-18.0) g/dL POC Hgb (14.0-18.0) g/dl Hct (42-52) % POC Hct (42-52) % MCV (80-100) fL MCH (25-34) pg MCHC (32-36) g/dL RDW Std Deviation (36.4-46.3) fL RDW Coeff of Alin (11.5-14.5) % Plt Count (130-400) K/uL MPV (7.4-10.4) fL Absolute Nucleated RBC (0-0) K/uL Nucleated RBC % (auto) % Neutrophils % (Manual) % Lymphocytes % (Manual) % Monocytes % (Manual) % Eosinophils % (Manual) % Basophils % (Manual) % Neutrophils # (Manual) (1.4-6.5) K/uL Total Absolute Neuts (1.4-6.5) K/uL Lymphocytes # (Manual) (1.2-3.4) K/uL Total Abs Lymphocytes (1.2-3.4) K/uL Monocytes # (Manual) (0.11-0.59) K/uL Eosinophils # (Manual) (0-0.5) K/uL Basophils # (Manual) (0-0.2) K/uL Giant Platelets Polychromasia Hypochromasia Target Cells Schistocytes PT (9.0-12.0) Seconds INR (0.9-1.1) APTT (21.0-31.0) Seconds PTT Ratio VBG pH 7.34 L (7.36-7.41) VBG pCO2 56 H (38-50) mmHg VBG pO2 25 mmHg VBG HCO3 29 mmol/L VBG O2 Saturation < 60.0 % VBG Base Excess 2.8 mEq/L Barometric Pressure 730.2 mm/Hg POC Sodium (135-144) mmol/L Sodium 140 (136-145) mmol/L POC Potassium (3.3-5.0) mmol/L Potassium 3.3 L (3.5-5.1) mmol/L POC Chloride (101-112) mmol/L Chloride 109 H (98-107) mmol/L Carbon Dioxide 28 (21-32) mmol/L POC Total CO2 (24-31) mmol/L Anion Gap 3.0 (3-11) POC Anion Gap (16-25) mmol/L POC BUN (7-18) mg/dl BUN 24 H (7-18) mg/dl Creatinine 1.54 H (0.6-1.4) mg/dl POC Creatinine (0.6-1.3) mg/dl Est Cr Clr Drug Dosing Not Reportable Est GFR ( Amer) 53.3 Est GFR (Non-Af Amer) 46.0 BUN/Creatinine Ratio 15.3 (10-20) Glucose 118 H (70-99) mg/dl POC Glucose (other) (70-99) mg/dl Lactate (0.4-2.0) mmol/L Calcium 8.2 L (8.5-10.1) mg/dl POC Ioniz Calcium Mamta (1.12-1.32) mmol/l Magnesium 1.9 (1.8-2.4) mg/dl Total Bilirubin 0.6 (0.2-1) mg/dl Direct Bilirubin 0.2 (0-0.2) mg/dl AST 24 (15-37) U/L ALT 17 (12-78) U/L Alkaline Phosphatase 48 (45-117) U/L Troponin I < 0.015 (0-0.045) ng/ml Total Protein 6.8 (6.4-8.2) gm/dl Albumin 2.0 L (3.4-5.0) gm/dl Lipase 91 (73-393) U/L Procalcitonin < 0.05 (0-0.5) ng/ml Blood Type Antibody Screen Crossmatch 09/16/19 09/16/19 Range/Units 13:58 14:05 WBC (4.8-10.8) K/uL RBC (4.7-6.1) M/uL Hgb (14.0-18.0) g/dL POC Hgb 8.8 L (14.0-18.0) g/dl Hct (42-52) % POC Hct 26 L (42-52) % MCV (80-100) fL MCH (25-34) pg MCHC (32-36) g/dL RDW Std Deviation (36.4-46.3) fL RDW Coeff of Alin (11.5-14.5) % Plt Count (130-400) K/uL MPV (7.4-10.4) fL Absolute Nucleated RBC (0-0) K/uL Nucleated RBC % (auto) % Neutrophils % (Manual) % Lymphocytes % (Manual) % Monocytes % (Manual) % Eosinophils % (Manual) % Basophils % (Manual) % Neutrophils # (Manual) (1.4-6.5) K/uL Total Absolute Neuts (1.4-6.5) K/uL Lymphocytes # (Manual) (1.2-3.4) K/uL Total Abs Lymphocytes (1.2-3.4) K/uL Monocytes # (Manual) (0.11-0.59) K/uL Eosinophils # (Manual) (0-0.5) K/uL Basophils # (Manual) (0-0.2) K/uL Giant Platelets Polychromasia Hypochromasia Target Cells Schistocytes PT (9.0-12.0) Seconds INR (0.9-1.1) APTT (21.0-31.0) Seconds PTT Ratio VBG pH (7.36-7.41) VBG pCO2 (38-50) mmHg VBG pO2 mmHg VBG HCO3 mmol/L VBG O2 Saturation % VBG Base Excess mEq/L Barometric Pressure mm/Hg POC Sodium 140 (135-144) mmol/L Sodium (136-145) mmol/L POC Potassium 3.2 L (3.3-5.0) mmol/L Potassium (3.5-5.1) mmol/L POC Chloride 102 (101-112) mmol/L Chloride (98-107) mmol/L Carbon Dioxide (21-32) mmol/L POC Total CO2 27 (24-31) mmol/L Anion Gap (3-11) POC Anion Gap 15.0 L (16-25) mmol/L POC BUN 23 H (7-18) mg/dl BUN (7-18) mg/dl Creatinine (0.6-1.4) mg/dl POC Creatinine 1.5 H (0.6-1.3) mg/dl Est Cr Clr Drug Dosing Est GFR ( Amer) Est GFR (Non-Af Amer) BUN/Creatinine Ratio (10-20) Glucose (70-99) mg/dl POC Glucose (other) 121 H (70-99) mg/dl Lactate 1.6 (0.4-2.0) mmol/L Calcium (8.5-10.1) mg/dl POC Ioniz Calcium Mamta 1.21 (1.12-1.32) mmol/l Magnesium (1.8-2.4) mg/dl Total Bilirubin (0.2-1) mg/dl Direct Bilirubin (0-0.2) mg/dl AST (15-37) U/L ALT (12-78) U/L Alkaline Phosphatase (45-117) U/L Troponin I (0-0.045) ng/ml Total Protein (6.4-8.2) gm/dl Albumin (3.4-5.0) gm/dl Lipase (73-393) U/L Procalcitonin (0-0.5) ng/ml Blood Type Antibody Screen Crossmatch Imaging Data Radiologist's Impression: PA CHEST RADIOGRAPH AND UPRIGHT AND SUPINE AP RADIOGRAPHS OF THE ABDOMEN CLINICAL HISTORY: Vomiting. Shortness of breath. COMPARISON STUDY: Chest radiograph and CT of the abdomen and pelvis August 07, 2019. FINDINGS: Incidental note is made of multiple BBs projecting over the left l ower chest and left upper quadrant. Interstitial thickening is noted with mild bibasilar opacities. There is no free air. The bowel gas pattern is normal. A large amount stool within the colon and rectum is noted. IMPRESSION: 1. No free air or evidence of bowel obstruction. 2. Large amount stool within the colon and rectum. 3. Pulmonary vascular congestion. 4. Mild bibasilar opacities that favor atelectasis. ACT 112: Negative or not required by law. Electronically signed by: Umer Perez M.D. 09/16/2019 3:01 PM Dictated: 09/16/19 1435 Transcribed: 09/16/19 145 ECG Data Indication: + SOB/dyspnea Rate (beats per minute): 87 Rhythm: + normal sinus ECG Intervals/blocks: + Normal QRS, + Normal KS and + Normal QT-c ECG ST segments: + Normal ST segments [facility] Narrative 1250: Patient was found to have abnormal vital signs in the waiting room. I asked charge nurse Glo to bring the patient back to the room immediately. She states there is an extreme shortage of nursing staff and there are no current rooms available. I instructed her to bring the patient immediately to the resuscitation bay. Patient was seen in room A1 and had complete history and physical were performed. Patient has a history of esophageal varices, alcoholi sm, cirrhosis of the liver, COPD, and sepsis. Patient was placed on supervisory aide and continuous pulse ox. Patient's pulse ox was 86% on room air. Patient reports that he does not wear any oxygen at baseline. Patient had 2 L of oxygen nasal cannula applied and his oxygen saturation subsequently improved. Cardiac monitoring: An order was placed for continuous cardiac monitoring. The monitor shows a rate of 90 with sinus rhythm 1520: Vital signs stable. Hemoglobin is low at 7.4. Labs show mild leukocytosis of 13.62. Mild hypokalemia 3.3. Kidney function is elevated at 1.54 up from baseline. Patient was started on Protonix bolus and Protonix drip given his GI bleed as well as octreotide bolus and octreotide drip given his history of esophageal varices. Patient will be transfused 1 unit packed red blood cells and admitted to the hospital service. Impression & Plan GI bleed, JAMISON (acute kidney injury), Anemia, Hypoxia Discharge Plan Visit Data Chief Complaint: Referred by Doctor Stated Complaint: REF'D FOR BLOOD TRANSFUSION ED Provider: Ry Bee Discharge Problem: GI bleed, JAMISON (acute kidney injury), Anemia, Hypoxia Patient Disposition: Admitted As Inpatient Forms Stand Alone Forms: My [facility] Prescriptions Prescriptions: No Action sucralfate 1 gram Tablet 1 g PO TID RF: 0 isosorbide mononitrate 30 mg Tablet Extended Release 24 Hr 30 mg PO QAM RF: 0 tamsulosin 0.4 mg Capsule 0.4 mg PO HS RF: 0 levothyroxine 200 mcg Tablet 200 mcg PO QAM RF: 0 pantoprazole 40 mg Tablet,Delayed Release (Dr/Ec) 40 mg PO DAILY RF: 0 Gaviscon 95-358 mg/15 mL Suspension 30 ml PO QID RF: 0 vitamin E Cream 1 applic TOPICAL BID RF: 0 promethazine 25 mg Tablet 25 mg PO QID PRN (Reason: Nausea) RF: 0 docusate sodium 100 mg Capsule 100 mg PO BID RF: 0 potassium chloride 20 mEq Tablet Extended Release 40 meq PO TID RF: 0 Imbruvica 420 mg Tablet 420 mg PO DAILY RF: 0 methocarbamol [Robaxin-750] 750 mg Tablet 750 mg PO BID RF: 0 dicyclomine 20 mg Tablet 20 mg PO TID RF: 0 diphenhydramine HCl 25 mg Capsule 25 mg PO HS RF: 0 menthol [Blue Gel] 2 % Gel 1 applic TOPICAL TID PRN (Reason: Muscle Pain) RF: 0 levalbuterol tartrate [Xopenex HFA] 45 mcg/actuation Hfa Aerosol Inhaler 2 inh INHALATION QID RF: 0 ketorolac 30 mg/mL Solution 30 mg IM TID RF: 0 bumetanide 2 mg Tablet 2 mg PO DAILY RF: 0 levothyroxine 50 mcg Tablet 50 mcg PO QAM RF: 0 lactulose 10 gram/15 mL Solution 30 ml PO TID RF: 0 gabapentin 800 mg Tablet 800 mg PO TID RF: 0 aspirin 81 mg Tablet,Chewable 81 mg PO DAILY RF: 0 oxycodone 30 mg Tablet 120 mg PO TID RF: 0 mirtazapine 45 mg Tablet 45 mg PO HS RF: 0 guaifenesin [Mucosa] 400 mg Tablet 1,200 mg PO BID RF: 0 Alvesco 160 mcg/actuation Hfa Aerosol Inhaler 1 puff INHALATION BID RF: 0 Referrals Referrals: Nemo SANCHEZ [Primary Care Provider] - Discharge Problem: GI bleed Qualifiers: GI bleed type/associated pathology: unspecified gastrointestinal hemorrhage type Qualified Code(s): K92.2 - Gastrointestinal hemorrhage, unspecified Anemia Qualifiers: Anemia type: unspecified type Qualified Code(s): D64.9 - Anemia, unspecified
[2019-09-16] MEDS ORDERED: ONDANSETRON INJ 2 MG/ML 2 ML VIAL ONE (14:04)
[2019-09-16] MEDS: PANTOprazole 40 MG in DEXTROSE 5% 100 ML IV SCH ×2 (14:08→17:50)
[2019-09-16] MEDS: SODIUM CHLORIDE 0.9% 500 ML IV SCH ×2 (14:09→18:39)
[2019-09-16 14:13] LABS: Base Excess VBG 2.8 mEq/L; HCO3 VBG 29 mmol/L; PCO2 VBG 56 mmHg (38-50); PO2 VBG 25 mmHg; pH VBG 7.34 (7.36-7.41)
[2019-09-16 14:17] LABS: iSTAT Creatinine 1.5 mg/dl (0.6-1.3); iSTAT Hemoglobin 8.8 g/dl (14.0-18.0); iSTAT Ionized Calcium 1.21 mmol/l (1.12-1.32); iSTAT Potassium 3.2 mmol/L (3.3-5.0)
[2019-09-16 14:21] LABS: INR 1.1 (0.9-1.1); Partial Thromboplastin Ratio 0.8; Partial Thromboplastin Time 21.8 Seconds (21.0-31.0); Prothrombin Time 11.7 Seconds (9.0-12.0)
[2019-09-16 14:30] LABS: Blood Urea Nitrogen 24 mg/dl (7-18); Carbon Dioxide 28 mmol/L (21-32); Chloride 109 mmol/L (98-107); Est GFR (African American) 53.3; Potassium 3.3 mmol/L (3.5-5.1); Sodium 140 mmol/L (136-145)
[2019-09-16 14:31] LABS: Alanine Aminotransferase 17 U/L (12-78); Aspartate Aminotransferase 24 U/L (15-37); BUN Creatinine Ratio 15.3 (10-20); Calcium 8.2 mg/dl (8.5-10.1); Glucose 118 mg/dl (70-99); Lipase 91 U/L (73-393); Magnesium 1.9 mg/dl (1.8-2.4)
[2019-09-16 14:43] LABS: Alkaline Phosphatase 48 U/L (45-117); Bilirubin,Total 0.6 mg/dl (0.2-1); Total Protein 6.8 gm/dl (6.4-8.2); Troponin I < 0.015 ng/ml (0-0.045)
[2019-09-16 14:52] LABS: Bilirubin Direct 0.2 mg/dl (0-0.2)
[2019-09-16 14:58] LABS: Hematocrit (blood only) 25.7 % (42-52); Hemoglobin 7.4 g/dL (14.0-18.0); Mean Corpuscular Hemoglobin 21.7 pg (25-34); Mean Corpuscular Hgb Conc 28.8 g/dL (32-36); Mean Corpuscular Volume 75.4 fL (80-100); Mean Platelet Volume 10.1 fL (7.4-10.4); Nucleated RBC # (auto) 3.94 K/uL (0-0); Nucleated RBC % (auto) 28.9 %; Platelet Count 317 K/uL (130-400); RDW Coefficient of Variation 18.5 % (11.5-14.5); RDW Standard Deviation 50.5 fL (36.4-46.3); Red Blood Count 3.41 M/uL (4.7-6.1); White Blood Count 13.62 K/uL (4.8-10.8)
[2019-09-16 14:59] LABS: ALC (manual) 5.11 K/uL (1.2-3.4); Basophils # (manual) 0.14 K/uL (0-0.2); Eosinophils # (manual) 0.14 K/uL (0-0.5); Giant Platelets 2+; Hypochromasia Present; Lymphocytes # (manual) 5.11 K/uL (1.2-3.4); Lymphocytes % (manual) 37.5 %; Monocytes # (manual) 1.84 K/uL (0.11-0.59); Monocytes % (manual) 13.5 %; Polychromasia 1+; Schistocytes 1+; Target Cells 2+
--- NOTE | 2019-09-16 15:02 | XRay Report ---
PA CHEST RADIOGRAPH AND UPRIGHT AND SUPINE AP RADIOGRAPHS OF THE ABDOMEN CLINICAL HISTORY: Vomiting. Shortness of breath. COMPARISON STUDY: Chest radiograph and CT of the abdomen and pelvis August 07, 2019. FINDINGS: Incidental note is made of multiple BBs projecting over the left lower chest and left uppe r quadrant. Interstitial thickening is noted with mild bibasilar opacities. There is no free air. The bowel gas pattern is normal. A large amount stool within the colon and rectum is noted. IMPRESSION: 1. No free air or evidence of bowel obstruction. 2. Large amount stool within the colon and rectum. 3. Pulmonary vascular congestion. 4. Mild bibasilar opacities that favor atelectasis. ACT 112: Negative or not required by law. Electronically signed by: Umer Perez M.D. 09/16/2019 3:01 PM
[2019-09-16 15:12] LABS: Oxygen Saturation VBG < 60.0 %
[2019-09-16] MEDS ORDERED: SODIUM CHLORIDE 0.9% 250 ML IV PRN (15:12)
[2019-09-16] MEDS ORDERED: HYDROmorphone INJ 1 MG/ML SYRINGE IV STA (15:13)
[2019-09-16] MEDS ORDERED: ONDANSETRON INJ 2 MG/ML 2 ML VIAL IV PRN (16:22)
[2019-09-16] MEDS ORDERED: ACETAMINOPHEN 325 MG TAB PO PRN (16:22)
--- NOTE | 2019-09-16 16:29 | History & Physical Report ---
Date of Service September 16, 2019 Assessment & Plan (1) GI bleed: Pt presents from [facility] with worsening of chronic anemia (Hgb 11.2 --> 7.4 since last month), heme positive stool, and ongoing N/V with hx of gastritis and esophageal varices (per chart although EGD earlier this year did not reveal varices) - Started on octreotide and Protonix gtts in the ED - will continue for now - Receiving one unit of PRBCs - follow H&H for stability post-transfusion - Clear liquid diet for now, NPO after midnight for potential scope tomorrow - Consult GI for additional recommendations (2) JAMISON (acute kidney injury): Evidence of JAMISON with elevated BUN and creatinine compared to last labs - suspect component of dehydration - Gentle IVF hydration - will need to monitor fluid balance closely with evidence of pulmonary vascular congestion on x-ray although lungs are clear on exam at present - Repeat labs in AM (3) Hypokalemia: - Replete via IV fluids - recheck in AM - Check magnesium and replete if needed (4) Hypoxia: Suspect due to anemia and underlying COPD - improved with oxygen, which will be weaned as tolerated. No know COVID exposure or sick contacts. 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 Being managed by a physician at [facility]. - Holding Imbruvica initially - may need to discus with oncology pending cli nical course (6) Hypothyroidism: - Continue outpatient levothyroxine - Check TSH - was low in March (7) Neuropathy: - Continue gabapentin for neuropathic pain (8) HTN (hypertension): - Continue carvedilol with holds - HOLD Bumex due to JAMISON (9) CAD (coronary artery disease): - HOLD aspirin for now due to concern for GI blood loss - Continue carvedilol with holds - Holding Bumex and Imdur initially - Monitor on telemetry - EKG reviewed and without evidence of acute ischemia (10) COPD (chronic obstructive pulmonary disease): - Holding outpatient inhaler for now - PRN DuoNebs if symptomatic (11) GERD (gastroesophageal reflux disease): - On PPI gtt for #1 (12) Chronic sinusitis: Has seen ENT in the past - recent course of Augmentin, eventual surgery per pt. Does not seem acutely worse at present so will defer antibiotics for now. (13) Leukocytosis: Ongoing issues since fall - unclear if active infection at present. May be related to chronic sinusitis, ongoing prednisone use, underlying lymphoma. Continue to monitor for now. Pt seen and examined with collaborating physician, Dr. Eddy. Plan of care discussed and as outlined above. Blood consent signed. All questions answered. Yaya Roldan PA-C History of Present Illness Chief Complaint: Anemia Primary Care Provider: DANIEL Chester This is a 69 y/o male with with a PMH of COPD, EtOH cirrhosis w/ hx portal HTN and esophageal varices, MALT lyphoma, hx of renal cell CA s/p partial nephrectomy, dyslipidemia, GERD, hx anemia (prior transfusions required), chronic sinusitis, and pneumonia w/ respiratory failure (04/07) who was referred from DANIEL Chester to the ED today with worsening of anemia from labs last month and increased shortness of breath. Per ED physician, pt was noted to be short of breath and hypoxic on room air upon arrival so he was placed on O2 with improvement. Pt reports breathing is minimally worse than baseline. He has ongoing chronic sinusitis with drainage. Reports sinus congestion, PND and a cough productive of alves mucus. He believes this is what is making him short of breath, worse with exertion. Denies wheezing, fevers, chills, hemoptysis, or FREIRE. Reports that is to have his third sinus surgery sometime soon. He is chronically fatigued, no worse than usual. He reports ongoing issues with na usea and vomiting for months, for which he has been tried on multiple therapies and undergone previous work-up. He reports emesis is usually alves but more recently has been orange in color (past week?). Denies coffee-ground emesis or hematemesis. Moving bowels every few days - no melena or hematochezia. No diarrhea. Unclear if current N/V worse than usual although he is currently asking to eat in the ED. Doesn't think that eating usually makes his GI symptoms worse. He also notes chronic abdominal pain, which he relates to his medications, specifically Imbruvica. EGD 07/11/19 (Dr. Brown) - Normal esophagus, no varices. Nodular mucosa in the gastric body. No blood in the stomach. Normal examined duodenum. Allergies Allergy/AdvReac Type Severity Reaction Status Date / Time lisinopril Allergy Severe UNKNOWN Verified 09/16/19 13:57 YONNY Inhibitors Allergy Intermediate LIPS SWELL Verified 09/16/19 13:57 Cipro Allergy Mild PER RECORD Verified 09/19/17 13:41 ciprofloxacin Allergy Mild Mild rash Verified 09/16/19 13:57 Home Medications Home Medications Medication Instructions Recorded Confirmed Type isosorbide mononitrate 30 mg PO QAM 03/07/18 09/16/19 History sucralfate 1 g PO TID 03/07/18 09/16/19 History tamsulosin 0.4 mg PO HS 03/07/18 09/16/19 History levothyroxine 200 mcg PO QAM 10/16/18 09/16/19 History pantoprazole 40 mg PO DAILY 02/01/19 09/16/19 History aspirin 81 mg PO DAILY 03/07/19 09/16/19 History bumetanide 2 mg PO DAILY 03/07/19 09/16/19 History gabapentin 800 mg PO TID 03/07/19 09/16/19 History lactulose 30 ml PO TID 03/07/19 09/16/19 History levothyroxine 50 mcg PO QAM 03/07/19 09/16/19 History oxycodone 120 mg PO TID 03/08/19 09/16/19 History ciclesonide [Alvesco] 1 puff INHALATION BID 05/08/19 09/16/19 History guaifenesin [Mucosa] 1,200 mg PO BID 05/08/19 09/16/19 History mirtazapine 45 mg PO HS 05/08/19 09/16/19 History aluminum hydrox-magnesium carb 30 ml PO QID 08/07/19 09/16/19 History [Gaviscon] docusate sodium 100 mg PO BID 08/07/19 09/16/19 History ibrutinib [Imbruvica] 420 mg PO DAILY 08/07/19 09/16/19 History potassium chloride 40 meq PO TID 08/07/19 09/16/19 History promethazine 25 mg PO QID PRN 08/07/19 09/16/19 History vitamin E 1 applic TOPICAL BID 08/07/19 09/16/19 History carvedilol [Coreg] 6.25 mg PO BID 09/16/19 09/16/19 History dicyclomine 20 mg PO TID 09/16/19 09/16/19 History diphenhydramine HCl 25 mg PO HS 09/16/19 09/16/19 History ketorolac 30 mg IM TID 09/16/19 09/16/19 History levalbuterol tartrate [Xopenex HFA] 2 inh INHALATION QID 09/16/19 09/16/19 History menthol [Blue Gel] 1 applic TOPICAL TID PRN 09/16/19 09/16/19 History methocarbamol [Robaxin-750] 750 mg PO BID 09/16/19 09/16/19 History Past Med/Surg History Medical History Anemia (Chronic) CAD (coronary artery disease) (Chronic) Cholelithiasis without cholecystitis Chronic pain Chronic sinusitis (Chronic) 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 COPD (chronic obstructive pulmonary disease) (Chronic) Esophageal varices (Chronic) 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) GERD (gastroesophageal reflux disease) (Chronic) HLD (hyperlipidemia) (Chronic) HTN (hypertension) (Chronic) Hypothyroidism (Chronic) Malignant neoplasm of kidney (Chronic) Left side- s/p partial nephrectomy Neuropathy (Chronic) Portal hypertension (Chronic) PVD (peripheral vascular disease) (Chronic) Surgical History History of appendectomy (Chronic) History of partial nephrectomy (Chronic) History of splenectomy (Chronic) Hx of colonoscopy Family History Mother Hypothyroidism Father Myocardial infarction Social History Preferred Language: Mongolian Communication Ability: Effective 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 Beliefs That Will Affect Care: None Current Living Situation: Other Current Living Situation Comment: alf current occupational status: unemployed Feels Safe at Home: Yes Smoking Status: Former smoker Tobacco Type: cigarettes ; Cigarettes Per Day: 12 ; Second Hand Exposure: Yes ; Hx Alcohol Use: No Hx Substance Use: No Review of Systems Review of Systems: All systems reviewed & are unremarkable except as noted in HPI & below Constitutional: + fatigue and + increased appetite; no fever, no chills and no anorexia Eyes: no worsening vision Ear, Nose, Mouth, Throat: + post nasal drip and + sinus pain/pressure; no sore throat Respiratory: + cough, + dyspnea on exertion and + pain with cough (burning in throat and chest); no hemoptysis and no wheezing Cardiovascular: + edema (ongoing); no chest pain with activity, no palpitations and no syncope Gastrointestinal: + abdominal pain, + nausea and + vomiting; no coffee ground emesis, no diarrhea/loose stools, no blood in stools and no melena Genitourinary: no dysuria, no urinary frequency and no hematuria Musculoskeletal: + back pain and + radicular pain (left leg) Integumentary: no rash and no skin ulcer Neurologic: no seizure-like activity, no syncope and no headache(s) Physical Exam Constitutional: + thin; no acute distress Eyes: PERRL, conjunctivae normal, anicteric sclerae ENMT: Ears: no external ear abnormality Nose: no external nose abnormality Mouth: no oral mucosal abnormality Neck: trachea midline Respiratory: normal respiratory effort, lungs clear to auscultation Auscultation: no rales, no rhonchi and no wheezes Cardiovascular: Rate/Rhythm: regular rate and regular rhythm Heart Sounds: no gallop, no murmur and no cardiac rub Extremities: normal capillary refill and + edema (2+ pedal, 1+pretibial bilaterally) Gastrointestinal (Abdomen): Inspection/Auscultation: normal bowel sounds; abdomen not distended Percussion/Palpation: + abdomen tender (mild diffuse but worse in epigastric area) and abdomen soft Musculoskeletal: Head/Neck/Chest: normocephalic, head atraumatic and neck supple Extremities: no cyanosis and no clubbing Skin: no rashes, warm and dry Neurologic: moves all extremities; no focal motor deficits Speech / Cognition: normal speech Psychiatric: A+Ox3, euthymic affect Results & Data Results & Data ([facility]) Vital Signs (Past 12 Hours) Vital Signs Temp Pulse Pulse Resp BP BP Pulse Ox 09/16/19 16:16 37.1 C 79 20 129/99 93 09/16/19 16:01 77 15 93 09/16/19 16:00 37.0 C 73 16 124/72 95 09/16/19 15:45 74 14 94 09/16/19 15:30 78 16 115/75 92 09/16/19 14:30 81 126/89 09/16/19 14:00 97 H 124/67 09/16/19 13:59 83 115/74 95 09/16/19 13:45 88 120/83 09/16/19 13:42 92 09/16/19 13:30 86 09/16/19 13:09 88 120/83 93 09/16/19 13:08 110 H 92 09/16/19 12:49 37.0 C 94 H 18 109/65 86 L Laboratory Results Laboratory Results - last 24 hr 09/16/19 09/16/19 09/16/19 13:58 13:58 13:58 WBC 13.62 H RBC 3.41 L Hgb 7.4 L POC Hgb Hct 25.7 L POC Hct MCV 75.4 L MCH 21.7 L MCHC 28.8 L RDW Std Deviation 50.5 H RDW Coeff of Alin 18.5 H Plt Count 317 MPV 10.1 Absolute Nucleated RBC 3.94 H Nucleated RBC % (auto) 28.9 Neutrophils % (Manual) 47.0 Lymphocytes % (Manual) 37.5 Monocytes % (Manual) 13.5 Eosinophils % (Manual) 1.0 Basophils % (Manual) 1.0 Neutrophils # (Manual) 6.40 Total Absolute Neuts 6.40 Lymphocytes # (Manual) 5.11 H Total Abs Lymphocytes 5.11 H Monocytes # (Manual) 1.84 H Eosinophils # (Manual) 0.14 Basophils # (Manual) 0.14 Giant Platelets 2+ Polychromasia 1+ Hypochromasia Present Target Cells 2+ Schistocytes 1+ PT 11.7 INR 1.1 APTT 21.8 PTT Ratio 0.8 VBG pH VBG pCO2 VBG pO2 VBG HCO3 VBG O2 Saturation VBG Base Excess Barometric Pressure POC Sodium Sodium POC Potassium Potassium POC Chloride Chloride Carbon Dioxide POC Total CO2 Anion Gap POC Anion Gap POC BUN BUN Creatinine POC Creatinine Est Cr Clr Drug Dosing Est GFR ( Amer) Est GFR (Non-Af Amer) BUN/Creatinine Ratio Glucose POC Glucose (other) Lactate Calcium POC Ioniz Calcium Mamta Magnesium Total Bilirubin Direct Bilirubin AST ALT Alkaline Phosphatase Troponin I Total Protein Albumin Lipase Procalcitonin Blood Type A Positive Antibody Screen NEGATIVE Crossmatch See Detail 09/16/19 09/16/19 09/16/19 13:58 13:58 13:58 WBC RBC Hgb POC Hgb Hct POC Hct MCV MCH MCHC RDW Std Deviation RDW Coeff of Alin Plt Count MPV Absolute Nucleated RBC Nucleated RBC % (auto) Neutrophils % (Manual) Lymphocytes % (Manual) Monocytes % (Manual) Eosinophils % (Manual) Basophils % (Manual) Neutrophils # (Manual) Total Absolute Neuts Lymphocytes # (Manual) Total Abs Lymphocytes Monocytes # (Manual) Eosinophils # (Manual) Basophils # (Manual) Giant Platelets Polychromasia Hypochromasia Target Cells Schistocytes PT INR APTT PTT Ratio VBG pH 7.34 L VBG pCO2 56 H VBG pO2 25 VBG HCO3 29 VBG O2 Saturation < 60.0 VBG Base Excess 2.8 Barometric Pressure 730.2 POC Sodium Sodium 140 POC Potassium Potassium 3.3 L POC Chloride Chloride 109 H Carbon Dioxide 28 POC Total CO2 Anion Gap 3.0 POC Anion Gap POC BUN BUN 24 H Creatinine 1.54 H POC Creatinine Est Cr Clr Drug Dosing Not Reportable Est GFR ( Amer) 53.3 Est GFR (Non-Af Amer) 46.0 BUN/Creatinine Ratio 15.3 Glucose 118 H POC Glucose (other) Lactate Calcium 8.2 L POC Ioniz Calcium Mamta Magnesium 1.9 Total Bilirubin 0.6 Direct Bilirubin 0.2 AST 24 ALT 17 Alkaline Phosphatase 48 Troponin I < 0.015 Total Protein 6.8 Albumin 2.0 L Lipase 91 Procalcitonin < 0.05 Blood Type Antibody Screen Crossmatch 09/16/19 09/16/19 09/16/19 13:58 13:58 14:05 WBC RBC Hgb POC Hgb 8.8 L Hct POC Hct 26 L MCV MCH MCHC RDW Std Deviation RDW Coeff of Alin Plt Count MPV Absolute Nucleated RBC Nucleated RBC % (auto) Neutrophils % (Manual) Lymphocytes % (Manual) Monocytes % (Manual) Eosinophils % (Manual) Basophils % (Manual) Neutrophils # (Manual) Total Absolute Neuts Lymphocytes # (Manual) Total Abs Lymphocytes Monocytes # (Manual) Eosinophils # (Manual) Basophils # (Manual) Giant Platelets Polychromasia Hypochromasia Target Cells Schistocytes PT INR APTT PTT Ratio VBG pH VBG pCO2 VBG pO2 VBG HCO3 VBG O2 Saturation VBG Base Excess Barometric Pressure POC Sodium 140 Sodium POC Potassium 3.2 L Potassium POC Chloride 102 Chloride Carbon Dioxide POC Total CO2 27 Anion Gap POC Anion Gap 15.0 L POC BUN 23 H BUN Creatinine POC Creatinine 1.5 H Est Cr Clr Drug Dosing Est GFR ( Amer) Est GFR (Non-Af Amer) BUN/Creatinine Ratio Glucose POC Glucose (other) 121 H Lactate 1.6 Calcium POC Ioniz Calcium Mamta 1.21 Magnesium Pending Total Bilirubin Direct Bilirubin AST ALT Alkaline Phosphatase Troponin I Total Protein Albumin Lipase Procalcitonin Blood Type Antibody Screen Crossmatch Diagnostic Findings Chest/Abd X-ray 09/16/19 - IMPRESSION: 1. No free air or evidence of bowel obstruction. 2. Large amount stool within the colon and rectum. 3. Pulmonary vascular congestion. 4. Mild bibasilar opacities that favor atelectasis. Medications Administered Sodium Chloride (Nss) 500 mls @ 125 mls/hr IV .Q4H KRISTIAN Stop: 10/16/19 13:14 Last Admin: 09/16/19 14:09 Dose: 125 mls/hr Documented by: [id number] Pantoprazole Sodium 40 mg/ (Dextrose) 100 mls @ 20 mls/hr IV Q5H KRISTIAN Stop: 10/16/19 13:14 Last Admin: 09/16/19 14:08 Dose: 8 mg/hr, 20 mls/hr Documented by: [id number] Octreotide Acetate 500 mcg/ (Sodium Chloride) 105 mls @ 10.5 mls/hr IV .Q10H KRISTIAN Stop: 10/16/19 13:14 Last Admin: 09/16/19 14:09 Dose: 50 mcg/hr, 10.5 mls/hr Documented by: [id number] Discontinued Medications Hydromorphone HCl (Dilaudid) 1 mg IV NOW STA Stop: 09/16/19 15:14 Last Admin: 09/16/19 15:33 Dose: 1 mg Documented by: [id number] Sodium Chloride (Nss 1000ml) 500 mls @ 999 mls/hr IV .Q31M ONE Stop: 09/16/19 13:37 Last Infusion: 09/16/19 15:24 Dose: 0 mls/hr Documented by: [id number] Admin: 09/16/19 14:09 Dose: 999 mls/hr Documented by: [id number] Pantoprazole Sodium 80 mg/ (Dextrose) 120 mls @ 400 mls/hr IV NOW ONE Stop: 09/16/19 13:27 Last Infusion: 09/16/19 15:24 Dose: 0 mls/hr Documented by: [id number] Admin: 09/16/19 14:08 Dose: 400 mls/hr Documented by: [id number] Octreotide Acetate 50 mcg/ (Syringe) 10 mls @ 3 mls/min IV ONE STA Stop: 09/16/19 13:13 Last Admin: 09/16/19 14:08 Dose: 3 mls/min Documented by: [id number] Ondansetron HCl (Zofran Odt) Confirm Administered Dose 4 mg .ROUTE .STK-MED ONE Stop: 09/16/19 13:12 Last Admin: 09/16/19 13:42 Dose: 4 mg Documented by: [id number] Ondansetron HCl (Zofran) Confirm Administered Dose 4 mg .ROUTE .STK-MED ONE Stop: 09/16/19 14:05 Last Admin: 09/16/19 14:30 Dose: 4 mg Documented by: [id number] Supervising Physician Co-Signing Physician Notes ATTENDING ADDENDUM : this is 69 yo M prisoner from [facility] presented with anemia , heme positive stool , concern for possible GI bleed given 1 Unit of PRBC tx in ER follow H&H GI eval pt started on IV protonix gtt and Octeotride gtt Laure Eddy MD (1) GI bleed GI bleed type/associated pathology: unspecified gastrointestinal hemorrhage type Qualified Code(s): K92.2 - Gastrointestinal hemorrhage, unspecified (2) Hypothyroidism Hypothyroidism type: unspecified Qualified Code(s): E03.9 - Hypothyroidism, unspecified (3) Leukocytosis Leukocytosis type: unspecified Qualified Code(s): D72.829 - Elevated white blood cell count, unspecified (4) COPD (chronic obstructive pulmonary disease) COPD type: unspecified COPD Qualified Code(s): J44.9 - Chronic obstructive pulmonary disease, unspecified (5) GERD (gastroesophageal reflux disease) Esophagitis presence: esophagitis presence not specified Qualified Code(s): K21.9 - Gastro-esophageal reflux disease without esophagitis (6) Chronic sinusitis Sinusitis location: unspecified location Qualified Code(s): J32.9 - Chronic sinusitis, unspecified
--- NOTE | 2019-09-16 16:35 | Electrocardiogram Report ---
Test Reason : Blood Pressure : / mmHG Vent. Rate : 087 BPM Atrial Rate : 087 BPM P-R Int : 128 ms QRS Dur : 092 ms QT Int : 380 ms P-R-T Axes : 046 029 033 degrees QTc Int : 457 ms Poor data quality, interpretation may be adversely affected Sinus rhythm with Premature supraventricular complexes Old Septal infarct (cited on or before 03-APR-2019) Abnormal ECG When compared with ECG of 07-AUG-2019 11:10, Sinus rhythm has replaced Ectopic atrial rhythm Confirmed by Ramiro Rutherford ([id number]) on 09/16/2019 4:34:36 PM Referred By: REFERRED SELF Confirmed By:Ramiro Rutherford
[2019-09-16] MEDS ORDERED: POTASSIUM CHLORIDE 20 MEQ TABCR PO STA (16:36)
[2019-09-16] MEDS: OCTREOTIDE ACETATE 500 MCG in 0.9 % SODIUM CHLORIDE 100 ML IV SCH (17:50)
[2019-09-16 18:15] LABS: Appearance Urine Clear (Clear); Bacteria Urine Automated Negative (Negative); Bilirubin Urine Negative (Negative); Blood Urine Negative (Negative); Color Urine Dark Yellow; Epithelial Cell Urine Auto 0-5 /lpf (0-5); Glucose Urine UA Negative (Negative); Ketones Urine Negative (Negative); Leukocyte Esterase Urine Negative (Negative); Nitrite Urine Negative (Negative); Protein Urine Trace (Negative); RBC Urine Automated 0-4 /hpf (0-4); Specific Gravity Urine 1.024 (1.000-1.030); Urobilinogen Urine Negative (Negative)
[2019-09-16] MEDS ORDERED: MoRPHine SULFATE 2 MG/ML CARP IV STA (18:20)
[2019-09-16] MEDS ORDERED: MoRPHine SULFATE 2 MG/ML CARP ONE (18:22)
[2019-09-16] MEDS: NSS + 20MEQ KCL 20 MEQ/1,000 ML BAG IV SCH (18:26)
[2019-09-16] MEDS ORDERED: OXYCODONE HCL IR 30 MG TAB (IMMEDIATE RELEASE) PO STA (22:29)
[2019-09-17] MEDS: SODIUM CHLORIDE 0.9% 500 ML IV SCH (00:08)
[2019-09-17] MEDS: PANTOprazole 40 MG in DEXTROSE 5% 100 ML IV SCH ×5 (00:10→09:58)
[2019-09-17] MEDS: OXYCODONE HCL IR 30 MG TAB (IMMEDIATE RELEASE) PO SCH ×5 (00:19→22:49)
[2019-09-17] MEDS: TAMSULOSIN HCL 0.4 MG CAP PO SCH ×2 (00:53→22:48)
[2019-09-17] MEDS: carvediloL 6.25 MG TAB PO SCH ×3 (00:53→22:48)
[2019-09-17] MEDS: SUCRALFATE 1 GM TAB PO SCH ×5 (00:53→22:47)
[2019-09-17] MEDS: GABAPENTIN 800 MG TAB PO SCH ×4 (00:53→23:48)
[2019-09-17] MEDS: LACTULOSE SYRUP 20 GM/30 ML UDC PO SCH ×4 (00:53→22:47)
[2019-09-17] MEDS: OCTREOTIDE ACETATE 500 MCG in 0.9 % SODIUM CHLORIDE 100 ML IV SCH ×2 (01:09→10:20)
[2019-09-17] MEDS: NSS + 20MEQ KCL 20 MEQ/1,000 ML BAG IV SCH (05:56)
[2019-09-17] MEDS: LEVOTHYROXINE SODIUM 50 MCG TABLET PO SCH (06:29)
[2019-09-17] MEDS: LEVOTHYROXINE SODIUM 200 MCG TABLET PO SCH (06:29)
[2019-09-17 09:02] LABS: Albumin Level 1.7 gm/dl (3.4-5.0); BUN Creatinine Ratio 14.2 (10-20); Calcium 7.6 mg/dl (8.5-10.1); Est GFR (African American) 83.8; Est GFR (Non-African American) 72.3; Potassium 4.4 mmol/L (3.5-5.1)
[2019-09-17 09:11] LABS: Albumin Globulin Ratio 0.4 (0.9-2); Bilirubin,Total 0.7 mg/dl (0.2-1); Globulin 4.6 gm/dl (2.5-4.0); Thyroid Stimulating Hormone 0.064 uIu/ml (0.300-4.500); Total Protein 6.3 gm/dl (6.4-8.2)
[2019-09-17 09:38] LABS: T4 Free Thyroxine 1.24 ng/dl (0.8-1.6)
[2019-09-17 09:39] LABS: Hematocrit (blood only) 29.5 % (42-52); Hemoglobin 8.4 g/dL (14.0-18.0); Mean Corpuscular Hemoglobin 22.3 pg (25-34); Mean Corpuscular Hgb Conc 28.5 g/dL (32-36); Mean Corpuscular Volume 78.2 fL (80-100); Mean Platelet Volume 10.3 fL (7.4-10.4); Nucleated RBC # (auto) 2.47 K/uL (0-0); Nucleated RBC % (auto) 18.6 %; Platelet Count 282 K/uL (130-400); Platelet Estimate Normal (Normal); RDW Coefficient of Variation 18.8 % (11.5-14.5); RDW Standard Deviation 53.7 fL (36.4-46.3); Red Blood Count 3.77 M/uL (4.7-6.1); White Blood Count 13.23 K/uL (4.8-10.8)
--- NOTE | 2019-09-17 09:40 | Hospitalist Progress Note ---
Date of Service September 17, 2019 Assessment & Plan (1) GI bleed: Pt presents from [facility] with worsening of chronic anemia (Hgb 11.2 --> 7.4 since last month), heme positive stool, and ongoing N/V with hx of gastritis and esophageal varices (per chart although EGD earlier this year did not reveal varices) - Started on octreotide and Protonix gtts in the ED - Receiving one unit of PRBCs - follow H&H for stability post-transfusion, hemoglobin 8.4 this morning - Clear liquid diet for now, NPO after midnight for potential scope by GI - Consult GI for additional recommendations Per GI: Hx of cirrhosis, recent EGD 2 month's ago w/o signs of varices, GAVE or portal HTN. 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 - Will DC Octreotide, PPI gtt. Continue him on Protonix 40mg BID - May start diet - Deferring endoscopic eval at this time unless displaying hematemesis/coffee ground emesis/melena/hematochezia (2) JAMISON (acute kidney injury): Evidence of JAMISON with elevated BUN and creatinine compared to last labs - suspect component of dehydration - Gentle IVF hydration - will need to monitor fluid balance closely with evidence of pulmonary vascular congestion on x-ray although lungs are clear on exam per admitting provider -IV fluids stopped this morning, as patient became more hypoxic, concern for increased pulmonary congestion -Creatinine normalized this morning, 1.06, down from 1.54 yesterday /on admission -Small dose of IV Lasix given to help with hypoxia/pulmonary congestion -Monitor renal function (3) Hypokalemia: - Replete via IV fluids on admission - replete and monitor - Check magnesium and replete if needed (4) Hypoxia: Initially suspected due to anemia and underlying COPD - improved with oxygen, initially on admission. No known COVID exposure or sick contacts. Hypoxia worsening this morning, possibly due to pulmonary congestion as patient received blood transfusion overnight, and IV fluids. Currently using 3.5 L of O2 via nasal cannula Will obtain chest x-ray and ABG, small dose of IV Lasix Patient has chronic sinusitis, several ENT surgeries in the past and 1 more planned in the near future. Sputum culture ordered as patient does have sputum production. Empiric antibiotic, Zosyn started. 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 Being managed by a physician at [facility]. - Holding Imbruvica initially - may need to discus with oncology pending clinical course -Per further review, seen by telehealth, Dr. Perdomo (recurrent MZL with nodular involvement of the stomach), on Imbruvica -Patient saw Dr. Dias at [facility]. Dr. Dias elected not to do a bone marrow biopsy at that time. 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 Mr. Akbar has a history of MALT lymphoma and may have bone marrow involvement. He has an M spike of 1.9 g/dL. Plan to follow-up with Dr. Dias in September 2019 -Plan to follow-up with [facility] oncology (6) Hypothyroidism: - Continue outpatient levothyroxine - Check TSH - was low in March (7) Neuropathy: - Continue gabapentin for neuropathic pain (8) HTN (hypertension): - Continue carvedilol with holds - HOLD Bumex due to JAMISON (9) CAD (coronary artery disease): - HOLD aspirin for now due to concern for GI blood loss - Continue carvedilol with holds - Holding Bumex and Imdur initially - Monitor on telemetry - EKG reviewed and without evidence of acute ischemia (10) COPD (chronic obstructive pulmonary disease): - Holding outpatient inhaler for now - PRN DuoNebs if symptomatic (11) GERD (gastroesophageal reflux disease): - On PPI gtt for #1 -Now changed by GI (12) Chronic sinusitis: Has seen ENT in the past - recent course of Augmentin, eventual surgery per pt. Does not seem acutely worse at present so will defer antibiotics for now. On admission. However patient is now hypoxic, clearly has sputum production, will start empiric Zosyn. Sputum culture ordered. (13) Leukocytosis: Ongoing issues since fall - unclear if active infection at present. May be related to chronic sinusitis, ongoing prednisone use, underlying lymphoma. Continue to monitor. Sputum culture ordered Given hypoxia, and sputum production, empiric Zosyn started. Update: Patient had increased oxygen requirement, contacted by nursing staff that patient requires now 10 L, satting at 90%. Contacted ICU for further evaluation. Admission and Anticipated Discharge Date Admission Date: September 16, 2019 Subjective Patient sitting up in bed, in no acute distress, however having increased use of oxygen, currently on 3.5 L. Chest x-ray ordered ABG ordered. Received 1 unit of packed RBCs in the ED, overnight. We will give small dose of IV Lasix. Will close monitor BP and heart rate. GI consult pending. Patient himself does not feel that he is very much short of breath. He also denies any chest pain. He denies fevers or chills. Patient is quite somnolent though and only answers questions in short sentences. He is able to tell me his name and where he is. Per nursing staff, noted upper respiratory sounds, need for suctioning, RT aware. Review of Systems Review of Systems: All systems reviewed & are unremarkable except as noted in HPI & below Patient is however quite somnolent, and only answers in short/ brief sentences Physical Exam Physical Exam: Constitutional: Elderly thin male, sitting up in bed, in no acute distress, on nasal cannula 3.5L Eyes: PERRL, conjunctivae normal, anicteric sclerae ENMT: Ears: no external ear abnormality Nose: no external nose abnormality Mouth: no oral mucosal abnormality Neck: trachea midline Respiratory: normal respiratory effort, +loud upper respiratory sounds/crackles, no wheezes Cardiovascular: Rate/Rhythm: regular rate and regular rhythm, no murmur noted, Extremities: normal capillary refill and +1 edema b/l Gastrointestinal (Abdomen): Inspection/Auscultation: normal bowel sounds; abdomen not distended Percussion/Palpation: + abdomen tender (mild diffuse but worse in epigastric area) and abdomen soft Musculoskeletal: Head/Neck/Chest: normocephalic, head atraumatic and neck supple Extremities: no cyanosis and no clubbing Skin: no rashes, warm and dry Neuro/ Psych: Patient somnolent but is arousable, able to answer simple questions however does not answer in full sentences, moves all extremities. He is able to tell me his name and hospital where he is in. Results & Data Results & Data ([facility]) Vital Signs (Past 12 Hours) Vital Signs Temp Pulse Pulse Resp BP BP Pulse Ox 09/17/19 07:38 36.8 C 73 20 123/80 97 09/17/19 03:56 37.5 C 73 18 133/74 97 09/16/19 23:56 37.4 C 73 20 129/77 96 09/16/19 23:49 84 09/16/19 23:01 65 13 94 09/16/19 23:00 64 13 113/62 94 09/16/19 22:31 70 12 94 09/16/19 22:30 74 13 115/71 94 09/16/19 22:01 68 23 90 09/16/19 22:00 73 13 132/78 93 Laboratory Results 09/17/19 09/17/19 09/17/19 Range/Units 11:48 08:00 08:00 WBC 13.23 H (4.8-10.8) K/uL RBC 3.77 L (4.7-6.1) M/uL Hgb 8.4 L (14.0-18.0) g/dL Hct 29.5 L (42-52) % MCV 78.2 L (80-100) fL MCH 22.3 L (25-34) pg MCHC 28.5 L (32-36) g/dL RDW Std Deviation 53.7 H (36.4-46.3) fL RDW Coeff of Alin 18.8 H (11.5-14.5) % Plt Count 282 (130-400) K/uL MPV 10.3 (7.4-10.4) fL Absolute Nucleated RBC 2.47 H (0-0) K/uL Nucleated RBC % (auto) 18.6 % Platelet Estimate Normal (Normal) ABG pH 7.35 (7.35-7.45) ABG pCO2 44 (35-46) mmHg ABG pO2 74 L (80-95) mmHg ABG HCO3 24 (19-24) mmol/L ABG O2 Saturation 93.4 (90-95) % ABG Base Excess -2.1 (-9-1.8) mEq/L Shan Test Pos (Pos) Barometric Pressure 730.8 mm/Hg Oxygen Given 5L Sodium (136-145) mmol/L Potassium (3.5-5.1) mmol/L Chloride (98-107) mmol/L Carbon Dioxide (21-32) mmol/L Anion Gap (3-11) BUN (7-18) mg/dl Creatinine (0.6-1.4) mg/dl Est Cr Clr Drug Dosing ml/min Est GFR ( Amer) Est GFR (Non-Af Amer) BUN/Creatinine Ratio (10-20) Glucose (70-99) mg/dl Calcium (8.5-10.1) mg/dl Iron 31 L (35-175) mcg/dl TIBC 250 (250-450) mcg/dl Transferrin 181 L (200-360) mg/dl Transferrin % Sat 12 L (20-50) % Total Bilirubin (0.2-1) mg/dl AST (15-37) U/L ALT (12-78) U/L Alkaline Phosphatase (45-117) U/L Total Protein (6.4-8.2) gm/dl Albumin (3.4-5.0) gm/dl Globulin (2.5-4.0) gm/dl Albumin/Globulin Ratio (0.9-2) TSH (0.300-4.500) uIu/ml Free T4 (0.8-1.6) ng/dl Crossmatch 09/17/19 09/16/19 Range/Units 08:00 13:58 WBC (4.8-10.8) K/uL RBC (4.7-6.1) M/uL Hgb (14.0-18.0) g/dL Hct (42-52) % MCV (80-100) fL MCH (25-34) pg MCHC (32-36) g/dL RDW Std Deviation (36.4-46.3) fL RDW Coeff of Alin (11.5-14.5) % Plt Count (130-400) K/uL MPV (7.4-10.4) fL Absolute Nucleated RBC (0-0) K/uL Nucleated RBC % (auto) % Platelet Estimate (Normal) ABG pH (7.35-7.45) ABG pCO2 (35-46) mmHg ABG pO2 (80-95) mmHg ABG HCO3 (19-24) mmol/L ABG O2 Saturation (90-95) % ABG Base Excess (-9-1.8) mEq/L Shan Test (Pos) Barometric Pressure mm/Hg Oxygen Given Sodium 140 (136-145) mmol/L Potassium 4.4 D (3.5-5.1) mmol/L Chloride 109 H (98-107) mmol/L Carbon Dioxide 28 (21-32) mmol/L Anion Gap 2.0 L (3-11) BUN 15 (7-18) mg/dl Creatinine 1.06 (0.6-1.4) mg/dl Est Cr Clr Drug Dosing 72.0 ml/min Est GFR ( Amer) 83.8 Est GFR (Non-Af Amer) 72.3 BUN/Creatinine Ratio 14.2 (10-20) Glucose 86 (70-99) mg/dl Calcium 7.6 L (8.5-10.1) mg/dl Iron (35-175) mcg/dl TIBC (250-450) mcg/dl Transferrin (200-360) mg/dl Transferrin % Sat (20-50) % Total Bilirubin 0.7 (0.2-1) mg/dl AST 20 (15-37) U/L ALT 16 (12-78) U/L Alkaline Phosphatase 46 (45-117) U/L Total Protein 6.3 L (6.4-8.2) gm/dl Albumin 1.7 L (3.4-5.0) gm/dl Globulin 4.6 H (2.5-4.0) gm/dl Albumin/Globulin Ratio 0.4 L (0.9-2) TSH 0.064 L (0.300-4.500) uIu/ml Free T4 1.24 (0.8-1.6) ng/dl Crossmatch See Detail Medications Administered Current Inpatient Medications Acetaminophen (Tylenol) 650 mg PO Q4H PRN PRN Reason: Pain or Fever Stop: 10/16/19 16:21 Last Admin: 09/17/19 04:02 Dose: 650 mg Documented by: Albuterol (Duoneb) 3 ml NEB Q4H PRN PRN Reason: Shortness Of Breath Or Wheezing Stop: 10/16/19 23:50 Carvedilol (Coreg) 6.25 mg PO BID [facility] Stop: 10/16/19 23:50 Last Admin: 09/17/19 08:26 Dose: 6.25 mg Documented by: Gabapentin (Neurontin) 800 mg PO TID [facility] Stop: 10/16/19 23:50 Last Admin: 09/17/19 08:27 Dose: 800 mg Documented by: Pantoprazole Sodium 40 mg/ (Dextrose) 100 mls @ 20 mls/hr IV Q5H KRISTIAN Stop: 10/16/19 16:29 Last Admin: 09/17/19 05:05 Dose: 8 mg/hr, 20 mls/hr Documented by: Octreotide Acetate 500 mcg/ (Sodium Chloride) 105 mls @ 10.5 mls/hr IV .Q10H [facility] Stop: 10/16/19 16:29 Last Admin: 09/17/19 01:09 Dose: 50 mcg/hr, 10.5 mls/hr Documented by: Potassium Chloride/Sodium Chloride (Normal Saline W/20 Meq Kcl) 20 meq in 1,000 mls @ 100 mls/hr IV .Q10H [facility] Stop: 10/16/19 16:44 Last Admin: 09/17/19 05:56 Dose: 100 mls/hr Documented by: Lactulose (Chronulac) 20 gm PO TID [facility] Stop: 10/17/19 00:14 Last Admin: 09/17/19 08:26 Dose: 20 gm Documented by: Levothyroxine Sodium (Synthroid) 200 mcg PO DAILYBB [facility] Stop: 10/17/19 06:29 Last Admin: 09/17/19 06:29 Dose: 200 mcg Documented by: Levothyroxine Sodium (Synthroid) 50 mcg PO DAILYBB [facility] Stop: 10/17/19 06:29 Last Admin: 09/17/19 06:29 Dose: 50 mcg Documented by: Ondansetron HCl (Zofran) 4 mg IV Q6H PRN PRN Reason: Nausea Stop: 10/16/19 16:21 Oxycodone HCl (Roxicodone Immediate Rel) 120 mg PO Q8 [facility] Stop: 09/30/19 05:59 Last Admin: 09/17/19 06:37 Dose: 120 mg Documented by: Sucralfate (Carafate Tab) 1 gm PO TID [facility] Stop: 10/16/19 23:50 Last Admin: 09/17/19 08:26 Dose: 1 gm Documented by: Tamsulosin HCl (Flomax) 0.4 mg PO HS [facility] Stop: 10/16/19 23:50 Last Admin: 09/17/19 00:53 Dose: 0.4 mg Documented by: (1) GI bleed GI bleed type/associated pathology: unspecified gastrointestinal hemorrhage type Qualified Code(s): K92.2 - Gastrointestinal hemorrhage, unspecified (2) Hypothyroidism Hypothyroidism type: unspecified Qualified Code(s): E03.9 - Hypothyroidism, unspecified (3) COPD (chronic obstructive pulmonary disease) COPD type: unspecified COPD Qualified Code(s): J44.9 - Chronic obstructive pulmonary disease, unspecified (4) GERD (gastroesophageal reflux disease) Esophagitis presence: esophagitis presence not specified Qualified Code(s): K21.9 - Gastro-esophageal reflux disease without esophagitis (5) Chronic sinusitis Sinusitis location: unspecified location Qualified Code(s): J32.9 - Chronic sinusitis, unspecified (6) Leukocytosis Leukocytosis type: unspecified Qualified Code(s): D72.829 - Elevated white blood cell count, unspecified
--- NOTE | 2019-09-17 11:19 | Gastrointestinal Consultation ---
Date of Consultation September 17, 2019 Assessment & Plan (1) Hypoxia: (2) Anemia: (3) Positive occult stool blood test: Pt is a 69 y/o male inmate who presented w respiratory distress, hypoxia; found to have worsening anemia and tested hemoccult positive in ED though he doesn't display tatiana s/s of GI bleeding. Hx of cirrhosis, recent EGD 2 month's ago w/o signs of varices, GAVE or portal HTN. 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 - Will DC Octreotide, PPI gtt. Continue him on Protonix 40mg BID - May start diet - Discussed w hospitalist to consider COVID 19 testing given symptoms and inmate status - Deferring endoscopic eval at this time unless displaying hematemesis/coffee ground emesis/melena/hematochezia Supervising Physician Co-Signing Physician Notes I have personally seen and examined the patient with JONATHAN Vora. Her note reflects my exam and findings. I agree with her impression and plan. Patient with B cell lymphoma. No indication for repeat EGD. Humble Brown M.D. History of Present Illness Reason for Consultation: Anemia , GI bleed Requesting Physician: Dr. Rian Potts Attending Physician: Dr. Humble Brown History of Present Illness Pt is a 69 y/o male inmate w PMHx of COPD, ETOH cirrhosis, portal HTN ? esophageal varices, MALT lymphoma on Imbruvica, renal ca s/p partial nephrectomy, dyslipidemia, GERD, anemia, pneumonia who presented yesterday w SOB, hypoxemia. On eval noted to have worsening anemia from baseline (Hgb 11 - >7). On exam today he appears drowsy but noted on high doses oxycodone. I was unable to obtain much hx from him, chart reviewed. Noted pt has sinus congestion, productive cough, MCCLAIN, fatigued. Also having n/v for months but no reports of GI bleeding (hematemesis , coffee ground emesis, melena/hematochezia). Hemoccult done was positive. Chest/abd xray showed signs of pulmonary congestion , large amt of stool in colon/rectum, no signs of free air or obstruction. Colonoscopy 2017 - incomplete due to stool in colon and restricted mobility of colon EGD 08/07/2018 - hiatal hernia, gastritis, esophageal dilation done 18mm EGD 07/11/19 - Normal esophagus, no varices. Nodular mucosa in the gastric body. (B cell lymphoma) No blood in the stomach. Normal examined duodenum Allergies Allergy/AdvReac Type Severity Reaction Status Date / Time lisinopril Allergy Severe UNKNOWN Verified 09/16/19 13:57 YONNY Inhibitors Allergy Intermediate LIPS SWELL Verified 09/16/19 13:57 Cipro Allergy Mild PER RECORD Verified 09/19/17 13:41 ciprofloxacin Allergy Mild Mild rash Verified 09/16/19 13:57 Home Medications Home Medications Medication Instructions Recorded Confirmed Type isosorbide mononitrate 30 mg PO QAM 03/07/18 09/16/19 History sucralfate 1 g PO TID 03/07/18 09/16/19 History tamsulosin 0.4 mg PO HS 03/07/18 09/16/19 History levothyroxine 200 mcg PO QAM 10/16/18 09/16/19 History pantoprazole 40 mg PO DAILY 02/01/19 09/16/19 History aspirin 81 mg PO DAILY 03/07/19 09/16/19 History bumetanide 2 mg PO DAILY 03/07/19 09/16/19 History gabapentin 800 mg PO TID 03/07/19 09/16/19 History lactulose 30 ml PO TID 03/07/19 09/16/19 History levothyroxine 50 mcg PO QAM 03/07/19 09/16/19 History oxycodone 120 mg PO TID 03/08/19 09/16/19 History ciclesonide [Alvesco] 1 puff INHALATION BID 05/08/19 09/16/19 History guaifenesin [Mucosa] 1,200 mg PO BID 05/08/19 09/16/19 History mirtazapine 45 mg PO HS 05/08/19 09/16/19 History aluminum hydrox-magnesium carb 30 ml PO QID 08/07/19 09/16/19 History [Gaviscon] docusate sodium 100 mg PO BID 08/07/19 09/16/19 History ibrutinib [Imbruvica] 420 mg PO DAILY 08/07/19 09/16/19 History potassium chloride 40 meq PO TID 08/07/19 09/16/19 History promethazine 25 mg PO QID PRN 08/07/19 09/16/19 History vitamin E 1 applic TOPICAL BID 08/07/19 09/16/19 History carvedilol [Coreg] 6.25 mg PO BID 09/16/19 09/16/19 History dicyclomine 20 mg PO TID 09/16/19 09/16/19 History diphenhydramine HCl 25 mg PO HS 09/16/19 09/16/19 History ketorolac 30 mg IM TID 09/16/19 09/16/19 History levalbuterol tartrate [Xopenex HFA] 2 inh INHALATION QID 09/16/19 09/16/19 History menthol [Blue Gel] 1 applic TOPICAL TID PRN 09/16/19 09/16/19 History methocarbamol [Robaxin-750] 750 mg PO BID 09/16/19 09/16/19 History Patient History Medical History Anemia (Chronic) CAD (coronary artery disease) (Chronic) Cholelithiasis without cholecystitis Chronic pain Chronic sinusitis (Chronic) 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 COPD (chronic obstructive pulmonary disease) (Chronic) Esophageal varices (Chronic) 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) GERD (gastroesophageal reflux disease) (Chronic) HLD (hyperlipidemia) (Chronic) HTN (hypertension) (Chronic) Hypothyroidism (Chronic) Malignant neoplasm of kidney (Chronic) Left side- s/p partial nephrectomy Neuropathy (Chronic) Portal hypertension (Chronic) PVD (peripheral vascular disease) (Chronic) Surgical History History of appendectomy (Chronic) History of partial nephrectomy (Chronic) History of splenectomy (Chronic) Hx of colonoscopy Family History Mother Hypothyroidism Father Myocardial infarction Social History Preferred Language: [place] Verdean Communication Ability: Effective Power Superintendent Required: No Beliefs That Will Affect Care: None Current Living Situation: Other Current Living Situation Comment: skilled nursing current occupational status: unemployed Feels Safe at Home: Yes Smoking Status: Former smoker Tobacco Type: cigarettes ; Cigarettes Per Day: 12 ; Second Hand Exposure: Yes ; Hx Alcohol Use: No Hx Substance Use: No Review of Systems Review of Systems: Unobtainable due to reduced consciousness Physical Exam Constitutional: well groomed, cooperative and + lethargic Eyes: PERRL, conjunctivae normal, anicteric sclerae ENMT: external ear and nose normal, oropharynx normal Respiratory: no respiratory distress and does not use accessory muscles Auscultation: + diminished lung sounds Cardiovascular: RRR, no murmur, no edema Gastrointestinal (Abdomen): normal bowel sounds, soft, nontender, no hepatosplenomegaly Skin: no rashes, warm and dry no jaundice Psychiatric: Drowsy Lymphatic: no lymphedema Results & Data ([facility]) Vital Signs (Past 12 Hours) Vital Signs Temp Pulse Pulse Resp BP Pulse Ox 09/17/19 07:38 36.8 C 73 20 123/80 97 09/17/19 03:56 37.5 C 73 18 133/74 97 09/16/19 23:56 37.4 C 73 20 129/77 96 09/16/19 23:49 84
[2019-09-17] MEDS ORDERED: PIPERACILL/TAZOBAC CONSULT ACTIVE PRN (11:48)
[2019-09-17 11:57] LABS: Allen Test Pos (Pos); Base Excess ABG -2.1 mEq/L (-9-1.8); HCO3 ABG 24 mmol/L (19-24); Oxygen Saturation ABG 93.4 % (90-95); PCO2 ABG 44 mmHg (35-46); PO2 ABG 74 mmHg (80-95); pH ABG 7.35 (7.35-7.45)
[2019-09-17] MEDS ORDERED: FUROSEMIDE 10 MG in SYRINGE 0 ML IV ONE (12:15)
[2019-09-17] MEDS ORDERED: PIPERACILLIN/TAZOBACTAM 3.375 GM in DEXTROSE 5% 100 ML IV ONE (12:15)
--- NOTE | 2019-09-17 12:16 | XRay Report ---
XR chest 1V portable HISTORY: hypoxia worsening COMPARISON: Chest 09/16/2019. FINDINGS: No pneumothorax. No pleural effusions. Mild diffuse interstitial thickening and patchy biba silar densities persist. Multiple metallic pellets seen within the left lower chest wall remain uncha nged. The cardiac silhouette remains borderline enlarged. IMPRESSION: No change in the pulmonary vascular congestion and bibasilar densities. ACT 112: Negative or not required by law. Electronically signed by: Maycol Sanz M.D. 09/17/2019 12:14 PM
[2019-09-17] MEDS: PANTOprazole 40 MG TAB PO SCH ×2 (12:24→22:49)
[2019-09-17 13:07] LABS: Iron 31 mcg/dl (35-175); Total Iron Binding Capacity 250 mcg/dl (250-450); Transferrin 181 mg/dl (200-360); Transferrin Percent Saturation 12 % (20-50)
[2019-09-17] MEDS: ALBUT/IPRATROP 3MG/0.5MG NEB 3 ML VIAL NEB SCH ×3 (16:11→23:55)
[2019-09-17] MEDS: PIPERACILLIN/TAZOBACTAM 3.375 GM in DEXTROSE 5% 100 ML IV SCH (17:15)
[2019-09-17] MEDS ORDERED: OXYCODONE HCL IR 5 MG TAB (IMMEDIATE RELEASE) PO PRN (17:45)
--- NOTE | 2019-09-17 20:38 | Critical Care Consultation ---
Date of Consultation September 17, 2019 Assessment & Plan (1) Admitted to intensive care unit: Reason Critically Ill: 69-year-old male presenting with anemia from presumed upper GI bleeding with progressively worsening altered mental status and respiratory failure requiring endotracheal intubation and close hemodynamic monitoring. NEURO - * CAM ICU: Unable to assess secondary to patient's obtunded state. * Altered mental status: * Responds to painful stimuli. * No focal neurological deficits on exam. * Snoring respirations. * Will order CT of the head to rule out intracranial abnormalities. * Will check ammonia levels as the patient does take lactulose daily and is with a significant history of cirrhosis. * Will repeat ABG for possibility of CO2 narcosis contributing. CARDIAC/VASCULAR - * Hypotension: * In the setting of sepsis secondary to likely aspiration pneumonia. * Received IV fluid boluses. * Will cautiously utilize fluids in the liver failure patient. * Pressors as needed. * Will check random cortisol. Will stress dose with Solu-Cortef at this point regardless. * Hypertension, hyperlipidemia, coronary artery disease: * Hold antihypertensives currently. * Hold on p.o. medications until more clarity as to patient's underlying gastropathy. * Prolonged QT: * Avoid any QTc prolonging agents. * Monitor on telemetry. RESPIRATORY - * Acute hypoxic respiratory failure: * ABG does not suggest component of CO2 narcosis, however the patient is hypoxic and not protecting his airway. * Requiring endotracheal intubation for airway protection and adequate oxygenation. * Ventilator settings: AC/16/450/5/80% * Titrate settings as tolerated. * Aspiration pneumonia: * Received dose of Zosyn today. Will continue. GI/NUTRITION - * Upper GI bleeding: * Known history of MALT currently on Imbruvica. * Appreciate GI consultation. * Continue Protonix twice daily. * History of cirrhosis with questionable history of varices and portal hypertension. * Will refrain from performing OG tube at this time as it appears as though the patient does not have varices, however I am uncertain to the significance of placing OG in the setting of possible stomach cancer. * Will defer to GI and hopefully be able to restart p.o. medications. RENAL/LYTES - * Initially with hypokalemia. * Trend electrolytes. Replace appropriately. * History of renal neoplasm status post partial LEFT-sided nephrectomy. - * History of BPH. * Sanchez in place - Strict I&Os. ENDO - * No history of diabetes. * BSGs per unit protocol. ISS --> gtt per unit policy. * Hypothyroidism: * Consider myxedema coma in differential. * Would be less likely in the normothermic patient with normal heart rate, blood pressure, and without hyponatremia. * T4 within normal limits. * Continue with home dosing. Consider transitioning to IV levothyroxine. HEME - * Acute blood loss anemia in the setting of GI bleeding. * Trend H&H. * Transfuse as needed. ID - * Severe sepsis with septic shock: * Secondary to aspiration pneumonia. * Continue Zosyn. * Check blood cultures. * Elevated procalcitonin. * Lactic acid within normal limits. LINES/IV ACCESS - * PIVs x2 * RIGHT IJ * RIGHT radial arterial line * ET tube: 8.0 Marshallese at 27 cm * Sanchez catheter DVT PROPHYLAXIS - * Hold on chemoprophylaxis secondary to upper GI bleeding. * SCDs I have personally spent 65 minutes of critical care time in the direct management of this patient. This is a life/limb threatening event. This includes time spent evaluating patient, direct bedside care, chart review, placing orders, interpretation of diagnostic studies, discussion with consultants, patient, and family members, as well as other required patient management activities. This time is exclusive of all separately billable procedures, and teaching time and separate from and in addition to any other critical care service time. Thank you for allowing us to participate in the care of this patient. Please refer to my attending physician's documentation for any further recommendations. 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 Patient was brought to the emergency department on 09/15 when outpatient labs demonstrated a worsening anemia from baseline requiring transfusion. The patient has had increasing shortness of breath over the last 48 hours prior to arrival. He reported some abdominal discomfort. In the emergency department, the patient was noted to have an H&H of 7.4 and 25.7, respectively. He was noted to be hypokalemic. He received 1 unit of PRBCs. He was assessed by GI and his Protonix/octreotide drips were discontinued. He is currently on Protonix twice daily only. Patient was noted to have no varices on last EGD performed on 07/11/2019. Was noted to have nodular mucosa in the gastric body consistent with his B-cell lymphoma. No plans for intervention up to this point. Throughout the day, the patient has progressively become more obtunded and required increasing amounts of supplemental oxygen. He is now on a 10 L oxygen mask and saturating in the low 90s. I was asked by hospitalist staff to evaluate the patient for transfer to the ICU for ongoing management. Upon evaluation in the patient in room 252, the patient is obtunded. He responds to painful stimuli. He has snoring respirations. He is on a 10 L o xygen mask with saturations of 91%. Blood pressures are marginal in the 90s. Correction officers are at bedside and reports that the patient has been unchanged throughout the day and has required suctioning of his throat for "gurgling"-like sounds. Patient unable to contribute to history of present illness secondary to current altered mental status. Allergies Allergy/AdvReac Type Severity Reaction Status Date / Time lisinopril Allergy Severe UNKNOWN Verified 09/16/19 13:57 YONNY Inhibitors Allergy Intermediate LIPS SWELL Verified 09/16/19 13:57 Cipro Allergy Mild PER RECORD Verified 09/19/17 13:41 ciprofloxacin Allergy Mild Mild rash Verified 09/16/19 13:57 Home Medications Home Medications Medication Instructions Recorded Confirmed Type isosorbide mononitrate 30 mg PO QAM 03/07/18 09/16/19 History sucralfate 1 g PO TID 03/07/18 09/16/19 History tamsulosin 0.4 mg PO HS 03/07/18 09/16/19 History levothyroxine 200 mcg PO QAM 10/16/18 09/16/19 History pantoprazole 40 mg PO DAILY 02/01/19 09/16/19 History aspirin 81 mg PO DAILY 03/07/19 09/16/19 History bumetanide 2 mg PO DAILY 03/07/19 09/16/19 History gabapentin 800 mg PO TID 03/07/19 09/16/19 History lactulose 30 ml PO TID 03/07/19 09/16/19 History levothyroxine 50 mcg PO QAM 03/07/19 09/16/19 History oxycodone 120 mg PO TID 03/08/19 09/16/19 History ciclesonide [Alvesco] 1 puff INHALATION BID 05/08/19 09/16/19 History guaifenesin [Mucosa] 1,200 mg PO BID 05/08/19 09/16/19 History mirtazapine 45 mg PO HS 05/08/19 09/16/19 History aluminum hydrox-magnesium carb 30 ml PO QID 08/07/19 09/16/19 History [Gaviscon] docusate sodium 100 mg PO BID 08/07/19 09/16/19 History ibrutinib [Imbruvica] 420 mg PO DAILY 08/07/19 09/16/19 History potassium chloride 40 meq PO TID 08/07/19 09/16/19 History promethazine 25 mg PO QID PRN 08/07/19 09/16/19 History vitamin E 1 applic TOPICAL BID 08/07/19 09/16/19 History carvedilol [Coreg] 6.25 mg PO BID 09/16/19 09/16/19 History dicyclomine 20 mg PO TID 09/16/19 09/16/19 History diphenhydramine HCl 25 mg PO HS 09/16/19 09/16/19 History ketorolac 30 mg IM TID 09/16/19 09/16/19 History levalbuterol tartrate [Xopenex HFA] 2 inh INHALATION QID 09/16/19 09/16/19 History menthol [Blue Gel] 1 applic TOPICAL TID PRN 09/16/19 09/16/19 History methocarbamol [Robaxin-750] 750 mg PO BID 09/16/19 09/16/19 History Patient History Medical History Anemia (Chronic) CAD (coronary artery disease) (Chronic) Cholelithiasis without cholecystitis Chronic pain Chronic sinusitis (Chronic) 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 COPD (chronic obstructive pulmonary disease) (Chronic) Esophageal varices (Chronic) 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) GERD (gastroesophageal reflux disease) (Chronic) HLD (hyperlipidemia) (Chronic) HTN (hypertension) (Chronic) Hypothyroidism (Chronic) Malignant neoplasm of kidney (Chronic) Left side- s/p partial nephrectomy Neuropathy (Chronic) Portal hypertension (Chronic) PVD (peripheral vascular disease) (Chronic) Surgical History History of appendectomy (Chronic) History of partial nephrectomy (Chronic) History of splenectomy (Chronic) Hx of colonoscopy Family History Mother Hypothyroidism Father Myocardial infarction Social History Preferred Language: Slovak Communication Ability: Effective Adjunct History Instructor Required: No Beliefs That Will Affect Care: None Current Living Situation: Other Current Living Situation Comment: correction current occupational status: unemployed Feels Safe at Home: Yes Smoking Status: Former smoker Tobacco Type: cigarettes ; Cigarettes Per Day: 12 ; Second Hand Exposure: Yes ; Hx Alcohol Use: No Hx Substance Use: No Review of Systems Review of Systems: Unobtainable due to cognitive status and Unobtainable due to reduced consciousness Physical Exam Physical Exam: VITAL SIGNS - Vital signs and nursing notes were reviewed. GENERAL - 69-year-old male appearing older than his stated age. Obtunded with snoring respirations. SKIN - Without rashes. HEAD - NC/AT. EYES - PERRL. Sclera anicteric. EARS - No deformities of external structures noted on gross examination bilaterally. NOSE - Midline and without cyanosis. No epistaxis or purulent drainage noted. MOUTH/OROPHARYNX - Without perioral cyanosis. Buccal mucosa pink and dry. Tongue midline with equal elevation of palate bilaterally. Poor dentition noted. NECK - Neck with FROM. Supple to palpation. No nuchal rigidity. LUNGS - Chest wall symmetric without accessory muscle use, intercostals retractions, or central cyanosis. Snoring respirations. Upper airway gurgling noted. Coarse breath sounds noted throughout lung bases. CARDIAC - RRR with S1/S2. No murmur, rubs, or gallops appreciated. ABDOMEN - Abdominal contour obese without pulsations or visible masses. BS normoactive all four quadrants. No tenderness, palpable masses, hepatosplenomegaly, or ascites noted. EXTREMITIES - No clubbing or peripheral cyanosis. No pretibial edema present. +3/5 radial and dorsalis pedis pulses palpated throughout. NEUROLOGIC - Otunded with snoring respirations. Responds to painful stimuli. No focal neurological deficits appreciated. Unable to fully assess secondary to altered mental status. Results & Data Results & Data ([facility]) Vital Signs (Past 12 Hours) Vital Signs Temp Pulse Pulse Resp BP Pulse Ox Pulse Ox 09/17/19 19:08 78 20 89 L 09/17/19 19:00 36.5 C 80 22 107/66 89 L 09/17/19 18:57 84 24 91 09/17/19 17:30 76 20 94 09/17/19 16:13 104 H 22 98 09/17/19 15:38 36.9 C 69 16 130/70 90 09/17/19 15:21 76 09/17/19 14:40 22 94 09/17/19 13:00 93 09/17/19 12:40 20 92 09/17/19 11:37 37.0 C 82 20 130/79 94 Coding Level of Care Code Critical Care 1st 30-74 mins Diagnoses Admitted to intensive care unit Z78.9 Altered mental status R41.82 Altered mental status type: unspecified Respiratory failure with hypoxia J96.91 GI bleed K92.2 GI bleed type/associated pathology: unspecified gastrointestinal hemorrhage type Positive occult stool blood test R19.5 Anemia D64.9 Leukocytosis D72.829 Leukocytosis type: unspecified JAMISON (acute kidney injury) N17.9 Aspiration pneumonia J69.0 Severe sepsis A41.9; R65.20 Septic shock A41.9; R65.21 Prolonged Q-T interval on ECG R94.31 COPD (chronic obstructive pulmonary disease) J44.9 COPD type: unspecified COPD CAD (coronary artery disease) I25.10 HTN (hypertension) I10 HLD (hyperlipidemia) E78.5 Hypothyroidism E03.9 Hypothyroidism type: unspecified 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 C88.4 Time Spent (min) 65 (1) Altered mental status Altered mental status type: unspecified Qualified Code(s): R41.82 - Altered mental status, unspecified (2) GI bleed GI bleed type/associated pathology: unspecified gastrointestinal hemorrhage type Qualified Code(s): K92.2 - Gastrointestinal hemorrhage, unspecified (3) Leukocytosis Leukocytosis type: unspecified Qualified Code(s): D72.829 - Elevated white blood cell count, unspecified (4) COPD (chronic obstructive pulmonary disease) COPD type: unspecified COPD Qualified Code(s): J44.9 - Chronic obstructive pulmonary disease, unspecified (5) Hypothyroidism Hypothyroidism type: unspecified Qualified Code(s): E03.9 - Hypothyroidism, unspecified
[2019-09-17] MEDS ORDERED: RAPID SEQUENCE INDUCTION BAG ONE (20:45)
[2019-09-17 20:52] LABS: iSTAT Allen Test Pass; iSTAT Arterial Blood Gas HCO3 24 meg/L (19-24); iSTAT Arterial Blood Gas pCO2 43 mmHg (35-46); iSTAT Arterial Blood Gas pH 7.36 (7.35-7.45); iSTAT Arterial Blood Gas pO2 54 mmHg (80-95); iSTAT Carbon Dioxide 26 mmol/L (24-31); iSTAT Site L Radial
[2019-09-17] MEDS ORDERED: STAT IV Infusion **Titration per Protocol STA ×5 (20:57→23:09)
[2019-09-17] MEDS ORDERED: NOREPINEPHRINE BIT INJ 8 MG in DEXTROSE 5% 500 ML IV SCH (21:00)
--- NOTE | 2019-09-17 21:39 | Procedure Note ---
Procedure Note Date of Service September 17, 2019 APC: Charly Patel PA-C. Attending: Dr. Paz A time-out was completed verifying correct patient, procedure, site, positioning. Patient was evaluated and required intubation for acute hypoxic respiratory failure and airway protection in the altered patient who is not able to tolerate secretions or provide meaningful cough. Sedative agent used: Etomidate Paralysis agent used: None Emergent consent was implied given patients rapidly declining clinical status and need for airway protection. The patient was prepared in the appropriate fashion. Sedation was achieved utilizing 10mg Etomidate, per Dr. Arreaga (anesthesia) guidance. The patient was easily ventilated using [id number] to achieve adequate oxygenation. A 8.0 Spanish endotracheal tube was placed using GlideScope to 27 cm at the lip. The stylette was removed and balloon was inflated with 10mL of air. Appropriate Colorimetric change was appreciated. Bilateral breath sounds were heard without air sounds in the abdomen. Dr. Arreaga was present for the entire procedure. Post Intubation Chest X-ray confirms placement without pneumothorax. Patient tolerated the procedure well and there were no immediate complications. Coding CPT Codes Resuscitation - Resuscitation: 70687 Endotracheal Intubation, emergency ([id number]) [facility] [place]Charges) Resuscitation Resuscitation: 48890 Endotracheal Intubation, emergency
--- NOTE | 2019-09-17 21:39 | Procedure Note ---
Procedure Note Date of Service September 17, 2019 Procedure: Arterial Line Placement Attending: Dr. Paz APC: Charly Patel PA-C Indication: Monitoring on Pressors Anesthesia: Lidocaine 1% Implied consent in the setting of rapidly decompensating patient who is obtunded and unable to provide verbal consent. Patient is FULL CODE STATUS and currently incarcerated which precludes a speaking to family or POA. We will proceed with any interventions as needed to actively resuscitate patient. A time-out was completed verifying correct patient, procedure, site, positioning, and implant(s) or special equipment if applicable. Allens test was performed to ensure adequate perfusion. Patients RIGHT wrist was prepped and draped in the usual sterile fashion. Ultrasound guidance was used to aid needle placement. A 20g Arrow arterial line was introduced into the RIGHT Radial artery. Catheter was threaded, and the needle was removed with appropriate blood return. Good waveform was observed. The patient tolerated the procedure well. Confirmation of placement with ultrasound. Blood Loss: Minimal Complications: None Procedural Ultrasound Guidance: Procedure Date: 09/17/2019 Indication: Pressors, ABGs, Frequent Labs Attending: Dr. Paz APC: Charly Patel PA-C Artery Identified: YES Line confirmed in Artery with ultrasound: YES Complications: NONE Patient tolerated procedure: WELL Coding CPT Codes Tubes, Drains, and Vasc Access - Tubes, Drains, and Vasc Access: [id number] Place Catheter In Artery ([id number]) [facility] [place] (Charges) Tubes, Drains, and Vasc Access Procedure 1: Tubes, Drains, and Vasc Access: [id number] Place Catheter In Artery
[2019-09-17] MEDS ORDERED: PROPOFOL BOLUS FROM BAG IV PRN (21:40)
[2019-09-17] MEDS ORDERED: ICU PROTOCOL FOR HYPERGLYCEMIA PRN (21:40)
[2019-09-17] MEDS ORDERED: propofoL 1,000 MG/100 ML VIAL IV SCH (21:45)
[2019-09-17] MEDS ORDERED: MIDAZOLAM HCL 125MG/250ML D5W ONE (21:45)
[2019-09-17] MEDS ORDERED: MIDAZOLAM BOLUS FROM BAG IV PRN ×2 (22:03→23:09)
[2019-09-17] MEDS: fentaNYL citrate 100 MCG/2 ML VIAL IV PRN (22:04)
[2019-09-17] MEDS ORDERED: MIDAZOLAM HCL 125 MG/250 ML BAG IV SCH (22:15)
[2019-09-17 22:31] LABS: Albumin Level 1.7 gm/dl (3.4-5.0); BUN Creatinine Ratio 14.4 (10-20); Calcium 7.7 mg/dl (8.5-10.1); Creatinine Clr Calc Pharmacy 60.1 ml/min; Est GFR (African American) 67.3; Est GFR (Non-African American) 58.1; Magnesium 1.5 mg/dl (1.8-2.4)
[2019-09-17 22:33] LABS: Bilirubin,Total 1.2 mg/dl (0.2-1); Total Protein 6.3 gm/dl (6.4-8.2)
[2019-09-17 22:49] LABS: Hematocrit (blood only) 30.3 % (42-52); Hemoglobin 8.8 g/dL (14.0-18.0); Mean Corpuscular Hemoglobin 22.8 pg (25-34); Mean Corpuscular Volume 78.5 fL (80-100); Mean Platelet Volume 10.2 fL (7.4-10.4); Nucleated RBC # (auto) 2.32 K/uL (0-0); Nucleated RBC % (auto) 9.8 %; Platelet Count 276 K/uL (130-400); RDW Coefficient of Variation 19.2 % (11.5-14.5); RDW Standard Deviation 53.9 fL (36.4-46.3); Red Blood Count 3.86 M/uL (4.7-6.1); White Blood Count 23.63 K/uL (4.8-10.8)
[2019-09-17] MEDS: guaiFENesin 600 MG TABCR PO SCH (22:49)
[2019-09-17 22:56] LABS: Bilirubin Direct 0.7 mg/dl (0-0.2)
[2019-09-17] MEDS: VASOPRESSIN 20 UNITS in 0.9 % SODIUM CHLORIDE 100 ML IV SCH (23:12)
[2019-09-17 23:13] LABS: ALC (manual) 7.73 K/uL (1.2-3.4); ANC (manual) 12.69 K/uL (1.4-6.5); Basophils # (manual) 0.21 K/uL (0-0.2); Basophils % (manual) 0.9 %; Dohle Bodies 1+; Eosinophils # (manual) 0.64 K/uL (0-0.5); Eosinophils % (manual) 2.7 %; Giant Platelets 1+; Lymphocytes # (manual) 7.73 K/uL (1.2-3.4); Lymphocytes % (manual) 32.7 %; Monocytes # (manual) 2.15 K/uL (0.11-0.59); Monocytes % (manual) 9.1 %; Myelocytes # (manual) 0.21 K/uL (0-0); Myelocytes % (manual) 0.9 %; Neutrophils # (manual) 12.69 K/uL (1.4-6.5); Neutrophils % (manual) 53.7 %; Polychromasia 1+; Spherocytes 1+; Target Cells 1+
[2019-09-17] MEDS ORDERED: HYDROCORTISONE SOD SUCCINATE 100 MG/2 ML VIAL ONE (23:17)
[2019-09-17] MEDS ORDERED: SODIUM BICARB 8.4% INJ 50 MEQ/50 ML SYR IV ONE (23:17)
[2019-09-17 23:36] LABS: iSTAT Arterial Blood Gas HCO3 25 meg/L (19-24); iSTAT Arterial Blood Gas pCO2 42 mmHg (35-46); iSTAT Arterial Blood Gas pH 7.39 (7.35-7.45); iSTAT Arterial Blood Gas pO2 62 mmHg (80-95); iSTAT Carbon Dioxide 27 mmol/L (24-31); iSTAT FiO2 80 %; iSTAT Site Art Line
[2019-09-17] MEDS: MIDAZOLAM HCL 125 MG/250 ML BAG IV SCH (23:39)
--- NOTE | 2019-09-17 23:46 | Procedure Note ---
Procedure Note Date of Service September 17, 2019 Procedure: Internal Jugular Central Line Placement Attending: Dr. Paz APC: Charly Patel PA-C Indication: Central Drug Administration, Poor Venous Access, Multiple Lab Draws Necessary, etc. Anesthesia: Lidocaine 1% Implied consent in the setting of rapidly decompensating patient who is obtunded and unable to provide verbal consent. Patient is FULL CODE STATUS and currently incarcerated which precludes a speaking to family or POA. We will proceed with any interventions as needed to actively resuscitate patient. A time-out was completed verifying correct patient, procedure, site, positioning, and implants(s) or special equipment if applicable. Patients RIGHT Neck was cleansed and draped in the typical sterile fashion using Chloraprep. The Internal Jugular Vein and Carotid Artery were identified using ultrasound. The superficial tissue was anesthetized using 3.0 mL of 1% lidocaine without epinephrine under direct visualization with the ultrasound. After adequate anesthetization was achieved, the Internal Jugular vein was cannulated under direct ultrasound guidance using an introducer needle on a syringe. Good venous blood return was maintained prior to removal of syringe from introducer needle. Using Seldinger Technique, a guide wire was advanced through the introducer n eedle without resistance. The introducer needle was removed and ultrasound images were obtained of the guide wire within the Internal Jugular Vein and saved to the patients medical record. The dilator was advanced to the vessel without resistance. The dilator was exchanged for the triple lumen catheter which was advanced into the vessel without resistance. The guide wire was removed intact from the catheter without issue. Claves were placed on each catheter tip with confirmation of good blood flow from each lumen. Each port was easily flushed with sterile saline. The catheter was placed at 16 cm and sut[address] in place. BioPatch was applied to the catheter and a sterile Tegaderm dressing was applied over the catheter with careful attention to sterility. Patient tolerated procedure well. No immediate complications were met. Post procedure x-ray was completed, placement was appropriate and no pneumothorax was noted. Images obtained are saved for permanent record Procedural Ultrasound Guidance: Procedure Date: 09/17/2019 Indication: Pressors, Multiple Medications, Poor Peripheral Access Attending: Dr. Paz APC: Charly Patel PA-C Artery AND Vein visualized: YES Compressible Vein: YES Guidewire or Short Catheter seen in vein prior to dilation: YES Line confirmed in Vein with ultrasound: YES Images obtained are saved for permanent record. Coding CPT Codes Tubes, Drains, and Vasc Access - Tubes, Drains, and Vasc Access: [id number] Insertion Of Non-tunneled Catheter Age 5 Yrs> ([id number]) Tubes, Drains, and Vasc Access - Tubes, Drains, and Vasc Access: [id number] Ultrasound Guidance For Vascular ([id number]) [facility] [place]arges) Tubes, Drains, and Vasc Access Procedure 2: Tubes, Drains, and Vasc Access: [id number] Insertion Of Non-tunneled Catheter Age 5 Yrs> Procedure 3: Tubes, Drains, and Vasc Access: [id number] Ultrasound Guidance For Vascular
[2019-09-17] MEDS: NOREPINEPHRINE BIT INJ 16 MG in DEXTROSE 5% 500 ML IV SCH (23:47)
[2019-09-18] MEDS ORDERED: HYDROCORTISONE SOD 100 MG in SYRINGE 0 ML IV ONE (01:00)
[2019-09-18] MEDS: MAGNESIUM SULFATE / D5W 1 GM/100 ML BAG IV SCH ×2 (01:28→03:02)
[2019-09-18] MEDS: PIPERACILLIN/TAZOBACTAM 3.375 GM in DEXTROSE 5% 100 ML IV SCH ×2 (02:09→10:31)
[2019-09-18] MEDS: ALBUT/IPRATROP 3MG/0.5MG NEB 3 ML VIAL NEB SCH ×6 (02:55→23:09)
[2019-09-18 04:44] LABS: INR 1.3 (0.9-1.1)
[2019-09-18 04:47] LABS: Hematocrit (blood only) 28.2 % (42-52); Hemoglobin 8.5 g/dL (14.0-18.0); Mean Corpuscular Hgb Conc 30.1 g/dL (32-36); Mean Corpuscular Volume 76.4 fL (80-100); RDW Coefficient of Variation 19.1 % (11.5-14.5); RDW Standard Deviation 52.7 fL (36.4-46.3); Red Blood Count 3.69 M/uL (4.7-6.1); White Blood Count 35.12 K/uL (4.8-10.8)
[2019-09-18 05:11] LABS: Mean Platelet Volume 10.1 fL (7.4-10.4); Platelet Count 259 K/uL (130-400)
[2019-09-18 05:12] LABS: ALC (manual) 1.58 K/uL (1.2-3.4); ANC (manual) 31.96 K/uL (1.4-6.5); Dohle Bodies 1+; Lymphocytes # (manual) 1.58 K/uL (1.2-3.4); Lymphocytes % (manual) 4.5 %; Metamyelocytes # (manual) 0.32 K/uL (0-0); Metamyelocytes % (manual) 0.9 %; Monocytes # (manual) 1.26 K/uL (0.11-0.59); Monocytes % (manual) 3.6 %; Neutrophils # (manual) 31.96 K/uL (1.4-6.5); Nucleated RBC # (auto) 1.92 K/uL (0-0); Nucleated RBC % (auto) 5.5 %; Platelet Estimate Normal (Normal); Polychromasia 1+; Spherocytes 1+; Target Cells 1+
[2019-09-18 05:21] LABS: iSTAT Arterial Blood Gas HCO3 25 meg/L (19-24); iSTAT Arterial Blood Gas pCO2 44 mmHg (35-46); iSTAT Arterial Blood Gas pH 7.35 (7.35-7.45); iSTAT Arterial Blood Gas pO2 82 mmHg (80-95); iSTAT Carbon Dioxide 26 mmol/L (24-31); iSTAT FiO2 80 %; iSTAT Site Art Line
[2019-09-18 05:32] LABS: Albumin Globulin Ratio 0.4 (0.9-2); Albumin Level 1.7 gm/dl (3.4-5.0); BUN Creatinine Ratio 17.6 (10-20); Bilirubin,Total 1.5 mg/dl (0.2-1); Calcium 7.5 mg/dl (8.5-10.1); Est GFR (African American) 76.7; Est GFR (Non-African American) 66.2; Globulin 4.7 gm/dl (2.5-4.0); Magnesium 2.1 mg/dl (1.8-2.4); Phosphorus 3.1 mg/dl (2.5-4.9); Total Protein 6.4 gm/dl (6.4-8.2)
[2019-09-18] MEDS: LEVOTHYROXINE SODIUM 200 MCG TABLET PO SCH (05:37)
[2019-09-18] MEDS: OXYCODONE HCL IR 30 MG TAB (IMMEDIATE RELEASE) PO SCH (05:37)
[2019-09-18] MEDS: LEVOTHYROXINE SODIUM 50 MCG TABLET PO SCH (05:37)
[2019-09-18] MEDS: VASOPRESSIN 20 UNITS in 0.9 % SODIUM CHLORIDE 100 ML IV SCH (05:42)
[2019-09-18] MEDS: HYDROCORTISONE SOD 50 MG in SYRINGE 0 ML IV SCH ×3 (05:44→21:05)
--- NOTE | 2019-09-18 06:36 | Hospitalist Progress Note ---
Date of Service September 18, 2019 Assessment & Plan (1) Respiratory failure with hypoxia: (2) Septic shock: Yesterday, September 16, patient's Mental status worsened And had increased oxygen requirement Patient was given IV fluids on admission, concern for fluid overload Possibly patient may have aspirated History of ESBL Klebsiella pneumonia, And chronic sinusitis Started on Zosyn Initially Antibiotics then changed by ICU team after acute hypoxic respiratory failure, currently on vancomycin and ertapenem given positive nasal MRSA swab and prior history of ESBL klebsiella pneumonia pna COVID negative Patient is currently intubated and sedated Sputum culture obtained prior to this episode, Results pending White blood cell count significantly elevated from Yesterday, procalcitonin also elevated now Patient also required pressors after admission to ICU Further care per ICU team (3) GI bleed: Pt presented from [facility] with worsening of chronic anemia (Hgb 11.2 --> 7.4 since last month), heme positive stool, and ongoing N/V with hx of gastritis and esophageal varices (per chart although EGD earlier this year did not reveal varices) - Started on octreotide and Protonix gtts in the ED - Receiving one unit of PRBCs - follow H&H for stability post-transfusion -GI consulted Per GI: Hx of cirrhosis, recent EGD 2 month's ago w/o signs of varices, GAVE or portal HTN. 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 - DC Octreotide, PPI gtt. Continue him on Protonix 40mg BID - Deferring endoscopic eval at this time unless displaying hematemesis/coffee ground emesis/melena/hematochezia (4) JAMISON (acute kidney injury): Evidence of JAMISON with elevated BUN and creatinine compared to last labs - suspect component of dehydration - Gentle IVF hydration provided on admission, fluids stopped next morning as he seemed to be fluid overloaded, and with evidence of pulmonary vascular congestion on x-ray, hypoxic, concern for increased pulmonary congestion -Creatinine normalized tmorning after admission to, 1.06, down from 1.54 on admission -Small dose of IV Lasix given to help with hypoxia/pulmonary congestion -Monitor renal function -Patient is currently intubated and sedated due to acute hypoxic respiratory failure, renal function seems to be stable, creatinine about 1 (5) Hypokalemia: - replete and monitor - Check magnesium and replete if needed (6) Hypoxia: Initially suspected due to anemia and underlying COPD - improved with oxygen, initially on admission. No known COVID exposure or sick contacts. COVID negative Prior to his acute respiratory failure with hypoxia on September 16 Hypoxia worsening this morning, possibly due to pulmonary congestion as patient received blood transfusion overnight, and IV fluids. Currently using 3.5 L of O2 via nasal cannula Will obtain chest x-ray and ABG, small dose of IV Lasix Patient has chronic sinusitis, several ENT surgeries in the past and 1 more planned in the near future. Sputum culture ordered as patient does have sputum production. Empiric antibiotic, Zosyn started. 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 Being m anaged by a physician at [facility]. - Holding Imbruvica initially - may need to discus with oncology pending clinical course -Per further review, seen by telehealth, Dr. Perdomo (recurrent MZL with nodular involvement of the stomach), on Imbruvica -Patient saw Dr. Dias at [facility]. Dr. Dias elected not to do a bone marrow biopsy at that time. 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 Mr. Akbar has a history of MALT lymphoma and may have bone marrow involvement. He has an M spike of 1.9 g/dL. Plan to follow-up with Dr. Dias in September 2019 -Plan to follow-up with [facility] oncology (8) Hypothyroidism: - Continue outpatient levothyroxine - Check TSH - was low in March (9) Neuropathy: - Continue gabapentin for neuropathic pain (10) HTN (hypertension): - Continue carvedilol with holds - HOLD Bumex due to JAMISON on admission --Patient is currently on vasopressors in ICU, intubated and sedated further care per ICU team (11) CAD (coronary artery disease): - HOLD aspirin for now due to concern for GI blood loss - Continue carvedilol with holds - Holding Bumex and Imdur initially - Monitor on telemetry - EKG reviewed and without evidence of acute ischemia (12) COPD (chronic obstructive pulmonary disease): - Holding outpatient inhaler for now - PRN DuoNebs if symptomatic (13) GERD (gastroesophageal reflux disease): - On PPI gtt for #1 - then changed by GI to PO -Current care per ICU team (14) Chronic sinusitis: Has seen ENT in the past - recent course of Augmentin, eventual surgery per pt. on admission, did not seem acutely worse, deferred antibiotics initially However patient became more hypoxic, clearly had sputum production, started empiric Zosyn. Sputum culture ordered. (15) Leukocytosis: Ongoing issues since fall - unclear if active infection at present. May be related to chronic sinusitis, ongoing prednisone use, underlying lymphoma. Continue to monitor. Sputum culture ordered Given hypoxia, and sputum production, empiric Zosyn started. Update: Patient had increased oxygen requirement, contacted by nursing staff that patient required 10 L, satting at 90%. Contacted ICU for further evaluation (09/17/2019 evening) Patient is in care of ICU team currently intubated and sedated. Admission and Anticipated Discharge Date Admission Date: September 16, 2019 Subjective Patient's mental status worsened yesterday, and oxygen requirement suddenly increased. Patient possibly aspirated however that is not clear. Intensive care was contacted immediately and patient was transferred to ICU. He was intubated, sedated, even required pressors. Currently patient is in care of ICU team. Review of system not able to perform due to sedation Review of Systems Review of Systems: Unobtainable due to cognitive status and Unobtainable due to endotracheal tube Physical Exam Physical Exam: Constitutional: Elderly thin male laying in bed, sedated and intubated Eyes: PERRL, conjunctivae normal, anicteric sclerae ENMT: Ears: no external ear abnormality Nose: no external nose abnormality Neck: Central line placed, R IJ Respiratory: Intubated, + coarse breath sounds Cardiovascular: Rate/Rhythm: regular rate and regular rhythm, no murmur noted, Extremities: normal capillary refill and +1 edema b/l Gastrointestinal (Abdomen): + sounds; abdomen not distended, soft Musculoskeletal: Head/Neck/Chest: normocephalic, head atraumatic Skin: no rashes, warm and dry Neuro/ Psych: Sedated, intubated Results & Data Results & Data ([facility]) Vital Signs (Past 12 Hours) Vital Signs Temp Pulse Pulse Resp BP BP Pulse Ox 09/18/19 06:01 36.7 C 63 146/76 H 96 09/18/19 05:49 36.7 C 67 129/67 97 09/18/19 05:31 36.8 C 62 141/63 H 96 09/18/19 05:01 36.9 C 62 115/61 96 09/18/19 05:00 36.9 C 65 96 09/18/19 04:52 60 19 96 09/18/19 04:30 37.0 C 63 137/66 96 09/18/19 04:00 37.1 C 61 136/65 95 09/18/19 03:30 37.3 C 65 130/61 94 09/18/19 03:00 37.6 C H 67 17 125/63 95 09/18/19 02:58 71 16 94 09/18/19 02:30 37.8 C H 73 16 125/56 L 94 09/18/19 02:00 38.1 C H 70 107/60 94 09/18/19 01:30 38.2 C H 68 120/54 L 95 09/18/19 01:00 38.4 C H 77 126/64 93 09/18/19 00:56 77 129/58 L 94 09/18/19 00:53 78 21 92 09/18/19 00:51 68 96/39 L 90 09/18/19 00:05 74 114/62 94 09/18/19 00:00 82 104/61 93 09/17/19 23:55 68 107/58 L 93 09/17/19 23:50 70 104/67 93 09/17/19 23:45 81 122/54 L 93 09/17/19 23:40 74 121/60 93 09/17/19 23:36 84 112/58 L 91 09/17/19 23:30 76 116/62 94 09/17/19 23:26 84 106/58 L 94 09/17/19 23:09 85 68/42 L 91 09/17/19 23:04 85 74/43 L 94 09/17/19 23:00 84 93/53 L 94 09/17/19 22:58 78 23 93 09/17/19 22:45 71 90/54 L 93 09/17/19 22:31 83 93 09/17/19 22:30 73 85/54 L 93 09/17/19 22:24 77 99/49 L 93 09/17/19 22:23 78 33 H 93 09/17/19 22:22 78 94/55 L 93 09/17/19 22:18 72 104/49 L 93 09/17/19 22:16 83 98/55 L 93 09/17/19 22:14 73 111/54 L 94 09/17/19 22:12 78 107/58 L 94 09/17/19 22:10 75 99/57 L 94 09/17/19 22:08 74 102/62 94 09/17/19 22:06 79 106/64 94 09/17/19 22:04 73 126/59 L 95 09/17/19 22:02 84 107/64 97 09/17/19 22:01 74 97 09/17/19 22:00 75 115/58 L 94 09/17/19 21:58 81 110/69 97 09/17/19 21:52 81 68/42 L 96 09/17/19 21:48 80 130/71 96 09/17/19 21:45 82 132/64 95 09/17/19 21:43 87 113/54 L 94 09/17/19 21:40 87 145/65 H 97 09/17/19 21:38 83 24 116/50 L 98 09/17/19 21:34 91 H 17 99/77 L 93 09/17/19 21:30 74 18 95 09/17/19 21:25 80 24 102/53 L 92 09/17/19 21:20 78 15 90/52 L 89 L 09/17/19 21:19 80 8 L 76/52 L 88 L 09/17/19 21:01 79 14 90 09/17/19 21:00 81 18 82/52 L 91 09/17/19 20:47 76 16 80/52 L 91 09/17/19 20:32 79 21 94/54 L 91 09/17/19 19:08 78 20 89 L 09/17/19 19:00 36.5 C 80 22 107/66 89 L 09/17/19 18:57 84 24 91 Laboratory Results 09/18/19 09/18/19 09/18/19 Range/Units 05:08 04:24 04:24 WBC (4.8-10.8) K/uL RBC (4.7-6.1) M/uL Hgb (14.0-18.0) g/dL Hct (42-52) % MCV (80-100) fL MCH (25-34) pg MCHC (32-36) g/dL RDW Std Deviation (36.4-46.3) fL RDW Coeff of Alin (11.5-14.5) % Plt Count (130-400) K/uL MPV (7.4-10.4) fL Absolute Nucleated RBC (0-0) K/uL Nucleated RBC % (auto) % Neutrophils % (Manual) % Lymphocytes % (Manual) % Monocytes % (Manual) % Eosinophils % (Manual) % Basophils % (Manual) % Metamyelocytes % (Man) % Myelocytes % (Man) % Neutrophils # (Manual) (1.4-6.5) K/uL Total Absolute Neuts (1.4-6.5) K/uL Lymphocytes # (Manual) (1.2-3.4) K/uL Total Abs Lymphocytes (1.2-3.4) K/uL Monocytes # (Manual) (0.11-0.59) K/uL Eosinophils # (Manual) (0-0.5) K/uL Basophils # (Manual) (0-0.2) K/uL Metamyelocytes # (Man) (0-0) K/uL Myelocytes # (Manual) (0-0) K/uL Dohle Bodies Platelet Estimate (Normal) Giant Platelets Polychromasia Spherocytes Target Cells PT (9.0-12.0) Seconds INR (0.9-1.1) Sample Site Art Line POC pH 7.35 (7.35-7.45) POC pCO2 44 (35-46) mmHg POC pO2 82 (80-95) mmHg POC HCO3 25 H (19-24) cecy/L POC Total CO2 26 (24-31) mmol/L POC Base Excess -1.0 (-9-1.8) cecy/L ABG pH (7.35-7.45) ABG pCO2 (35-46) mmHg ABG pO2 (80-95) mmHg ABG HCO3 (19-24) mmol/L POC ABG O2 Sat 95.0 (90-95) % ABG O2 Saturation (90-95) % ABG Base Excess (-9-1.8) mEq/L Shan Test NA (Pos) Barometric Pressure mm/Hg Oxygen Given O2 Delivery Device Ventilator POC O2 Rate 16 Minute Ventilation 7.1 POC FiO2 80 % Tidal Volume 450 PEEP 5 Sodium (136-145) mmol/L Potassium (3.5-5.1) mmol/L Chloride (98-107) mmol/L Carbon Dioxide (21-32) mmol/L Anion Gap (3-11) BUN (7-18) mg/dl Creatinine (0.6-1.4) mg/dl Est Cr Clr Drug Dosing ml/min Est GFR ( Amer) Est GFR (Non-Af Amer) BUN/Creatinine Ratio (10-20) Glucose (70-99) mg/dl POC Glucose (70-99) mg/dl POC Glucose (other) (70-99) mg/dl Lactate (0.4-2.0) mmol/L Calcium (8.5-10.1) mg/dl Phosphorus (2.5-4.9) mg/dl Magnesium (1.8-2.4) mg/dl Iron (35-175) mcg/dl TIBC (250-450) mcg/dl Transferrin (200-360) mg/dl Transferrin % Sat (20-50) % Total Bilirubin (0.2-1) mg/dl Direct Bilirubin (0-0.2) mg/dl AST (15-37) U/L ALT (12-78) U/L Alkaline Phosphatase (45-117) U/L Ammonia 50.0 H (11-32) umol/L Total Protein (6.4-8.2) gm/dl Albumin (3.4-5.0) gm/dl Globulin (2.5-4.0) gm/dl Albumin/Globulin Ratio (0.9-2) Procalcitonin Pending (0-0.5) ng/ml TSH (0.300-4.500) uIu/ml Free T4 (0.8-1.6) ng/dl Random Cortisol mcg/dl Nasal Screen MRSA (PCR) (Negative) Crossmatch 09/18/19 09/18/19 09/18/19 Range/Units 04:24 04:24 04:24 WBC 35.12 H* D (4.8-10.8) K/uL RBC 3.69 L (4.7-6.1) M/uL Hgb 8.5 L (14.0-18.0) g/dL Hct 28.2 L (42-52) % MCV 76.4 L (80-100) fL MCH 23.0 L (25-34) pg MCHC 30.1 L (32-36) g/dL RDW Std Deviation 52.7 H (36.4-46.3) fL RDW Coeff of Alin 19.1 H (11.5-14.5) % Plt Count 259 (130-400) K/uL MPV 10.1 (7.4-10.4) fL Absolute Nucleated RBC 1.92 H (0-0) K/uL Nucleated RBC % (auto) 5.5 % Neutrophils % (Manual) 91.0 % Lymphocytes % (Manual) 4.5 % Monocytes % (Manual) 3.6 % Eosinophils % (Manual) % Basophils % (Manual) % Metamyelocytes % (Man) 0.9 % Myelocytes % (Man) % Neutrophils # (Manual) 31.96 H (1.4-6.5) K/uL Total Absolute Neuts 31.96 H (1.4-6.5) K/uL Lymphocytes # (Manual) 1.58 (1.2-3.4) K/uL Total Abs Lymphocytes 1.58 (1.2-3.4) K/uL Monocytes # (Manual) 1.26 H (0.11-0.59) K/uL Eosinophils # (Manual) (0-0.5) K/uL Basophils # (Manual) (0-0.2) K/uL Metamyelocytes # (Man) 0.32 H (0-0) K/uL Myelocytes # (Manual) (0-0) K/uL Dohle Bodies 1+ Platelet Estimate Normal (Normal) Giant Platelets Polychromasia 1+ Spherocytes 1+ Target Cells 1+ PT 14.0 H (9.0-12.0) Seconds INR 1.3 H (0.9-1.1) Sample Site POC pH (7.35-7.45) POC pCO2 (35-46) mmHg POC pO2 (80-95) mmHg POC HCO3 (19-24) cecy/L POC Total CO2 (24-31) mmol/L POC Base Excess (-9-1.8) cecy/L ABG pH (7.35-7.45) ABG pCO2 (35-46) mmHg ABG pO2 (80-95) mmHg ABG HCO3 (19-24) mmol/L POC ABG O2 Sat (90-95) % ABG O2 Saturation (90-95) % ABG Base Excess (-9-1.8) mEq/L Shan Test (Pos) Barometric Pressure mm/Hg Oxygen Given O2 Delivery Device POC O2 Rate Minute Ventilation POC FiO2 % Tidal Volume PEEP Sodium 137 (136-145) mmol/L Potassium 4.0 (3.5-5.1) mmol/L Chloride 108 H (98-107) mmol/L Carbon Dioxide 25 (21-32) mmol/L Anion Gap 4.0 (3-11) BUN 20 H (7-18) mg/dl Creatinine 1.14 (0.6-1.4) mg/dl Est Cr Clr Drug Dosing 67.0 ml/min Est GFR ( Amer) 76.7 Est GFR (Non-Af Amer) 66.2 BUN/Creatinine Ratio 17.6 (10-20) Glucose 138 H (70-99) mg/dl POC Glucose (70-99) mg/dl POC Glucose (other) (70-99) mg/dl Lactate (0.4-2.0) mmol/L Calcium 7.5 L (8.5-10.1) mg/dl Phosphorus 3.1 (2.5-4.9) mg/dl Magnesium 2.1 (1.8-2.4) mg/dl Iron (35-175) mcg/dl TIBC (250-450) mcg/dl Transferrin (200-360) mg/dl Transferrin % Sat (20-50) % Total Bilirubin 1.5 H (0.2-1) mg/dl Direct Bilirubin 1.0 H (0-0.2) mg/dl AST 23 (15-37) U/L ALT 14 (12-78) U/L Alkaline Phosphatase 47 (45-117) U/L Ammonia (11-32) umol/L Total Protein 6.4 (6.4-8.2) gm/dl Albumin 1.7 L (3.4-5.0) gm/dl Globulin 4.7 H (2.5-4.0) gm/dl Albumin/Globulin Ratio 0.4 L (0.9-2) Procalcitonin (0-0.5) ng/ml TSH (0.300-4.500) uIu/ml Free T4 (0.8-1.6) ng/dl Random Cortisol mcg/dl Nasal Screen MRSA (PCR) (Negative) Crossmatch 09/18/19 09/17/19 09/17/19 Range/Units 00:05 23:56 23:22 WBC (4.8-10.8) K/uL RBC (4.7-6.1) M/uL Hgb (14.0-18.0) g/dL Hct (42-52) % MCV (80-100) fL MCH (25-34) pg MCHC (32-36) g/dL RDW Std Deviation (36.4-46.3) fL RDW Coeff of Alin (11.5-14.5) % Plt Count (130-400) K/uL MPV (7.4-10.4) fL Absolute Nucleated RBC (0-0) K/uL Nucleated RBC % (auto) % Neutrophils % (Manual) % Lymphocytes % (Manual) % Monocytes % (Manual) % Eosinophils % (Manual) % Basophils % (Manual) % Metamyelocytes % (Man) % Myelocytes % (Man) % Neutrophils # (Manual) (1.4-6.5) K/uL Total Absolute Neuts (1.4-6.5) K/uL Lymphocytes # (Manual) (1.2-3.4) K/uL Total Abs Lymphocytes (1.2-3.4) K/uL Monocytes # (Manual) (0.11-0.59) K/uL Eosinophils # (Manual) (0-0.5) K/uL Basophils # (Manual) (0-0.2) K/uL Metamyelocytes # (Man) (0-0) K/uL Myelocytes # (Manual) (0-0) K/uL Dohle Bodies Platelet Estimate (Normal) Giant Platelets Polychromasia Spherocytes Target Cells PT (9.0-12.0) Seconds INR (0.9-1.1) Sample Site Art Line POC pH 7.39 (7.35-7.45) POC pCO2 42 (35-46) mmHg POC pO2 62 L (80-95) mmHg POC HCO3 25 H (19-24) cecy/L POC Total CO2 27 (24-31) mmol/L POC Base Excess 0.0 (-9-1.8) cecy/L ABG pH (7.35-7.45) ABG pCO2 (35-46) mmHg ABG pO2 (80-95) mmHg ABG HCO3 (19-24) mmol/L POC ABG O2 Sat 91.0 (90-95) % ABG O2 Saturation (90-95) % ABG Base Excess (-9-1.8) mEq/L Shan Test NA (Pos) Barometric Pressure mm/Hg Oxygen Given O2 Delivery Device Ventilator POC O2 Rate 16 Minute Ventilation 6.5 POC FiO2 80 % Tidal Volume 450 PEEP 5 Sodium (136-145) mmol/L Potassium (3.5-5.1) mmol/L Chloride (98-107) mmol/L Carbon Dioxide (21-32) mmol/L Anion Gap (3-11) BUN (7-18) mg/dl Creatinine (0.6-1.4) mg/dl Est Cr Clr Drug Dosing ml/min Est GFR ( Amer) Est GFR (Non-Af Amer) BUN/Creatinine Ratio (10-20) Glucose (70-99) mg/dl POC Glucose 68 L* (70-99) mg/dl POC Glucose (other) 84 (70-99) mg/dl Lactate (0.4-2.0) mmol/L Calcium (8.5-10.1) mg/dl Phosphorus (2.5-4.9) mg/dl Magnesium (1.8-2.4) mg/dl Iron (35-175) mcg/dl TIBC (250-450) mcg/dl Transferrin (200-360) mg/dl Transferrin % Sat (20-50) % Total Bilirubin (0.2-1) mg/dl Direct Bilirubin (0-0.2) mg/dl AST (15-37) U/L ALT (12-78) U/L Alkaline Phosphatase (45-117) U/L Ammonia (11-32) umol/L Total Protein (6.4-8.2) gm/dl Albumin (3.4-5.0) gm/dl Globulin (2.5-4.0) gm/dl Albumin/Globulin Ratio (0.9-2) Procalcitonin (0-0.5) ng/ml TSH (0.300-4.500) uIu/ml Free T4 (0.8-1.6) ng/dl Random Cortisol mcg/dl Nasal Screen MRSA (PCR) (Negative) Crossmatch 09/17/19 09/17/19 09/17/19 Range/Units 21:59 21:59 21:59 WBC (4.8-10.8) K/uL RBC (4.7-6.1) M/uL Hgb (14.0-18.0) g/dL Hct (42-52) % MCV (80-100) fL MCH (25-34) pg MCHC (32-36) g/dL RDW Std Deviation (36.4-46.3) fL RDW Coeff of Alin (11.5-14.5) % Plt Count (130-400) K/uL MPV (7.4-10.4) fL Absolute Nucleated RBC (0-0) K/uL Nucleated RBC % (auto) % Neutrophils % (Manual) % Lymphocytes % (Manual) % Monocytes % (Manual) % Eosinophils % (Manual) % Basophils % (Manual) % Metamyelocytes % (Man) % Myelocytes % (Man) % Neutrophils # (Manual) (1.4-6.5) K/uL Total Absolute Neuts (1.4-6.5) K/uL Lymphocytes # (Manual) (1.2-3.4) K/uL Total Abs Lymphocytes (1.2-3.4) K/uL Monocytes # (Manual) (0.11-0.59) K/uL Eosinophils # (Manual) (0-0.5) K/uL Basophils # (Manual) (0-0.2) K/uL Metamyelocytes # (Man) (0-0) K/uL Myelocytes # (Manual) (0-0) K/uL Dohle Bodies Platelet Estimate (Normal) Giant Platelets Polychromasia Spherocytes Target Cells PT (9.0-12.0) Seconds INR (0.9-1.1) Sample Site POC pH (7.35-7.45) POC pCO2 (35-46) mmHg POC pO2 (80-95) mmHg POC HCO3 (19-24) cecy/L POC Total CO2 (24-31) mmol/L POC Base Excess (-9-1.8) cecy/L ABG pH (7.35-7.45) ABG pCO2 (35-46) mmHg ABG pO2 (80-95) mmHg ABG HCO3 (19-24) mmol/L POC ABG O2 Sat (90-95) % ABG O2 Saturation (90-95) % ABG Base Excess (-9-1.8) mEq/L Shan Test (Pos) Barometric Pressure mm/Hg Oxygen Given O2 Delivery Device POC O2 Rate Minute Ventilation POC FiO2 % Tidal Volume PEEP Sodium (136-145) mmol/L Potassium (3.5-5.1) mmol/L Chloride (98-107) mmol/L Carbon Dioxide (21-32) mmol/L Anion Gap (3-11) BUN (7-18) mg/dl Creatinine (0.6-1.4) mg/dl Est Cr Clr Drug Dosing ml/min Est GFR ( Amer) Est GFR (Non-Af Amer) BUN/Creatinine Ratio (10-20) Glucose (70-99) mg/dl POC Glucose (70-99) mg/dl POC Glucose (other) (70-99) mg/dl Lactate 1.3 (0.4-2.0) mmol/L Calcium (8.5-10.1) mg/dl Phosphorus (2.5-4.9) mg/dl Magnesium (1.8-2.4) mg/dl Iron (35-175) mcg/dl TIBC (250-450) mcg/dl Transferrin (200-360) mg/dl Transferrin % Sat (20-50) % Total Bilirubin (0.2-1) mg/dl Direct Bilirubin (0-0.2) mg/dl AST (15-37) U/L ALT (12-78) U/L Alkaline Phosphatase (45-117) U/L Ammonia (11-32) umol/L Total Protein (6.4-8.2) gm/dl Albumin (3.4-5.0) gm/dl Globulin (2.5-4.0) gm/dl Albumin/Globulin Ratio (0.9-2) Procalcitonin 0.64 H (0-0.5) ng/ml TSH (0.300-4.500) uIu/ml Free T4 (0.8-1.6) ng/dl Random Cortisol 29.35 mcg/dl Nasal Screen MRSA (PCR) (Negative) Crossmatch 09/17/19 09/17/19 09/17/19 Range/Units 21:59 21:59 21:59 WBC 23.63 H D (4.8-10.8) K/uL RBC 3.86 L (4.7-6.1) M/uL Hgb 8.8 L (14.0-18.0) g/dL Hct 30.3 L (42-52) % MCV 78.5 L (80-100) fL MCH 22.8 L (25-34) pg MCHC 29.0 L (32-36) g/dL RDW Std Deviation 53.9 H (36.4-46.3) fL RDW Coeff of Alin 19.2 H (11.5-14.5) % Plt Count 276 (130-400) K/uL MPV 10.2 (7.4-10.4) fL Absolute Nucleated RBC 2.32 H (0-0) K/uL Nucleated RBC % (auto) 9.8 % Neutrophils % (Manual) 53.7 % Lymphocytes % (Manual) 32.7 % Monocytes % (Manual) 9.1 % Eosinophils % (Manual) 2.7 % Basophils % (Manual) 0.9 % Metamyelocytes % (Man) % Myelocytes % (Man) 0.9 % Neutrophils # (Manual) 12.69 H (1.4-6.5) K/uL Total Absolute Neuts 12.69 H (1.4-6.5) K/uL Lymphocytes # (Manual) 7.73 H (1.2-3.4) K/uL Total Abs Lymphocytes 7.73 H (1.2-3.4) K/uL Monocytes # (Manual) 2.15 H (0.11-0.59) K/uL Eosinophils # (Manual) 0.64 H (0-0.5) K/uL Basophils # (Manual) 0.21 H (0-0.2) K/uL Metamyelocytes # (Man) (0-0) K/uL Myelocytes # (Manual) 0.21 H (0-0) K/uL Dohle Bodies 1+ Platelet Estimate (Normal) Giant Platelets 1+ Polychromasia 1+ Spherocytes 1+ Target Cells 1+ PT (9.0-12.0) Seconds INR (0.9-1.1) Sample Site POC pH (7.35-7.45) POC pCO2 (35-46) mmHg POC pO2 (80-95) mmHg POC HCO3 (19-24) cecy/L POC Total CO2 (24-31) mmol/L POC Base Excess (-9-1.8) cecy/L ABG pH (7.35-7.45) ABG pCO2 (35-46) mmHg ABG pO2 (80-95) mmHg ABG HCO3 (19-24) mmol/L POC ABG O2 Sat (90-95) % ABG O2 Saturation (90-95) % ABG Base Excess (-9-1.8) mEq/L Shan Test (Pos) Barometric Pressure mm/Hg Oxygen Given O2 Delivery Device POC O2 Rate Minute Ventilation POC FiO2 % Tidal Volume PEEP Sodium 138 (136-145) mmol/L Potassium 4.0 (3.5-5.1) mmol/L Chloride 109 H (98-107) mmol/L Carbon Dioxide 24 (21-32) mmol/L Anion Gap 5.0 (3-11) BUN 18 (7-18) mg/dl Creatinine 1.27 (0.6-1.4) mg/dl Est Cr Clr Drug Dosing 60.1 ml/min Est GFR ( Amer) 67.3 Est GFR (Non-Af Amer) 58.1 BUN/Creatinine Ratio 14.4 (10-20) Glucose 72 (70-99) mg/dl POC Glucose (70-99) mg/dl POC Glucose (other) (70-99) mg/dl Lactate (0.4-2.0) mmol/L Calcium 7.7 L (8.5-10.1) mg/dl Phosphorus 3.0 (2.5-4.9) mg/dl Magnesium 1.5 L (1.8-2.4) mg/dl Iron (35-175) mcg/dl TIBC (250-450) mcg/dl Transferrin (200-360) mg/dl Transferrin % Sat (20-50) % Total Bilirubin 1.2 H D (0.2-1) mg/dl Direct Bilirubin 0.7 H D (0-0.2) mg/dl AST 21 (15-37) U/L ALT 16 (12-78) U/L Alkaline Phosphatase 48 (45-117) U/L Ammonia 69.1 H (11-32) umol/L Total Protein 6.3 L (6.4-8.2) gm/dl Albumin 1.7 L (3.4-5.0) gm/dl Globulin (2.5-4.0) gm/dl Albumin/Globulin Ratio (0.9-2) Procalcitonin (0-0.5) ng/ml TSH (0.300-4.500) uIu/ml Free T4 (0.8-1.6) ng/dl Random Cortisol mcg/dl Nasal Screen MRSA (PCR) (Negative) Crossmatch 09/17/19 09/17/19 09/17/19 Range/Units 20:55 20:39 11:48 WBC (4.8-10.8) K/uL RBC (4.7-6.1) M/uL Hgb (14.0-18.0) g/dL Hct (42-52) % MCV (80-100) fL MCH (25-34) pg MCHC (32-36) g/dL RDW Std Deviation (36.4-46.3) fL RDW Coeff of Alin (11.5-14.5) % Plt Count (130-400) K/uL MPV (7.4-10.4) fL Absolute Nucleated RBC (0-0) K/uL Nucleated RBC % (auto) % Neutrophils % (Manual) % Lymphocytes % (Manual) % Monocytes % (Manual) % Eosinophils % (Manual) % Basophils % (Manual) % Metamyelocytes % (Man) % Myelocytes % (Man) % Neutrophils # (Manual) (1.4-6.5) K/uL Total Absolute Neuts (1.4-6.5) K/uL Lymphocytes # (Manual) (1.2-3.4) K/uL Total Abs Lymphocytes (1.2-3.4) K/uL Monocytes # (Manual) (0.11-0.59) K/uL Eosinophils # (Manual) (0-0.5) K/uL Basophils # (Manual) (0-0.2) K/uL Metamyelocytes # (Man) (0-0) K/uL Myelocytes # (Manual) (0-0) K/uL Dohle Bodies Platelet Estimate (Normal) Giant Platelets Polychromasia Spherocytes Target Cells PT (9.0-12.0) Seconds INR (0.9-1.1) Sample Site L Radial POC pH 7.36 (7.35-7.45) POC pCO2 43 (35-46) mmHg POC pO2 54 L (80-95) mmHg POC HCO3 24 (19-24) cecy/L POC Total CO2 26 (24-31) mmol/L POC Base Excess -1.0 (-9-1.8) cecy/L ABG pH 7.35 (7.35-7.45) ABG pCO2 44 (35-46) mmHg ABG pO2 74 L (80-95) mmHg ABG HCO3 24 (19-24) mmol/L POC ABG O2 Sat 86.0 L (90-95) % ABG O2 Saturation 93.4 (90-95) % ABG Base Excess -2.1 (-9-1.8) mEq/L Shan Test Pass Pos (Pos) Barometric Pressure 730.8 mm/Hg Oxygen Given 5L O2 Delivery Device Other POC O2 Rate Minute Ventilation POC FiO2 % Tidal Volume PEEP Sodium (136-145) mmol/L Potassium (3.5-5.1) mmol/L Chloride (98-107) mmol/L Carbon Dioxide (21-32) mmol/L Anion Gap (3-11) BUN (7-18) mg/dl Creatinine (0.6-1.4) mg/dl Est Cr Clr Drug Dosing ml/min Est GFR ( Amer) Est GFR (Non-Af Amer) BUN/Creatinine Ratio (10-20) Glucose (70-99) mg/dl POC Glucose (70-99) mg/dl POC Glucose (other) (70-99) mg/dl Lactate (0.4-2.0) mmol/L Calcium (8.5-10.1) mg/dl Phosphorus (2.5-4.9) mg/dl Magnesium (1.8-2.4) mg/dl Iron (35-175) mcg/dl TIBC (250-450) mcg/dl Transferrin (200-360) mg/dl Transferrin % Sat (20-50) % Total Bilirubin (0.2-1) mg/dl Direct Bilirubin (0-0.2) mg/dl AST (15-37) U/L ALT (12-78) U/L Alkaline Phosphatase (45-117) U/L Ammonia (11-32) umol/L Total Protein (6.4-8.2) gm/dl Albumin (3.4-5.0) gm/dl Globulin (2.5-4.0) gm/dl Albumin/Globulin Ratio (0.9-2) Procalcitonin (0-0.5) ng/ml TSH (0.300-4.500) uIu/ml Free T4 (0.8-1.6) ng/dl Random Cortisol mcg/dl Nasal Screen MRSA (PCR) Positive A (Negative) Crossmatch 09/17/19 09/17/19 09/17/19 Range/Units 08:00 08:00 08:00 WBC 13.23 H (4.8-10.8) K/uL RBC 3.77 L (4.7-6.1) M/uL Hgb 8.4 L (14.0-18.0) g/dL Hct 29.5 L (42-52) % MCV 78.2 L (80-100) fL MCH 22.3 L (25-34) pg MCHC 28.5 L (32-36) g/dL RDW Std Deviation 53.7 H (36.4-46.3) fL RDW Coeff of Alin 18.8 H (11.5-14.5) % Plt Count 282 (130-400) K/uL MPV 10.3 (7.4-10.4) fL Absolute Nucleated RBC 2.47 H (0-0) K/uL Nucleated RBC % (auto) 18.6 % Neutrophils % (Manual) % Lymphocytes % (Manual) % Monocytes % (Manual) % Eosinophils % (Manual) % Basophils % (Manual) % Metamyelocytes % (Man) % Myelocytes % (Man) % Neutrophils # (Manual) (1.4-6.5) K/uL Total Absolute Neuts (1.4-6.5) K/uL Lymphocytes # (Manual) (1.2-3.4) K/uL Total Abs Lymphocytes (1.2-3.4) K/uL Monocytes # (Manual) (0.11-0.59) K/uL Eosinophils # (Manual) (0-0.5) K/uL Basophils # (Manual) (0-0.2) K/uL Metamyelocytes # (Man) (0-0) K/uL Myelocytes # (Manual) (0-0) K/uL Dohle Bodies Platelet Estimate Normal (Normal) Giant Platelets Polychromasia Spherocytes Target Cells PT (9.0-12.0) Seconds INR (0.9-1.1) Sample Site POC pH (7.35-7.45) POC pCO2 (35-46) mmHg POC pO2 (80-95) mmHg POC HCO3 (19-24) cecy/L POC Total CO2 (24-31) mmol/L POC Base Excess (-9-1.8) cecy/L ABG pH (7.35-7.45) ABG pCO2 (35-46) mmHg ABG pO2 (80-95) mmHg ABG HCO3 (19-24) mmol/L POC ABG O2 Sat (90-95) % ABG O2 Saturation (90-95) % ABG Base Excess (-9-1.8) mEq/L Shan Test (Pos) Barometric Pressure mm/Hg Oxygen Given O2 Delivery Device POC O2 Rate Minute Ventilation POC FiO2 % Tidal Volume PEEP Sodium 140 (136-145) mmol/L Potassium 4.4 D (3.5-5.1) mmol/L Chloride 109 H (98-107) mmol/L Carbon Dioxide 28 (21-32) mmol/L Anion Gap 2.0 L (3-11) BUN 15 (7-18) mg/dl Creatinine 1.06 (0.6-1.4) mg/dl Est Cr Clr Drug Dosing 72.0 ml/min Est GFR ( Amer) 83.8 Est GFR (Non-Af Amer) 72.3 BUN/Creatinine Ratio 14.2 (10-20) Glucose 86 (70-99) mg/dl POC Glucose (70-99) mg/dl POC Glucose (other) (70-99) mg/dl Lactate (0.4-2.0) mmol/L Calcium 7.6 L (8.5-10.1) mg/dl Phosphorus (2.5-4.9) mg/dl Magnesium (1.8-2.4) mg/dl Iron 31 L (35-175) mcg/dl TIBC 250 (250-450) mcg/dl Transferrin 181 L (200-360) mg/dl Transferrin % Sat 12 L (20-50) % Total Bilirubin 0.7 (0.2-1) mg/dl Direct Bilirubin (0-0.2) mg/dl AST 20 (15-37) U/L ALT 16 (12-78) U/L Alkaline Phosphatase 46 (45-117) U/L Ammonia (11-32) umol/L Total Protein 6.3 L (6.4-8.2) gm/dl Albumin 1.7 L (3.4-5.0) gm/dl Globulin 4.6 H (2.5-4.0) gm/dl Albumin/Globulin Ratio 0.4 L (0.9-2) Procalcitonin (0-0.5) ng/ml TSH 0.064 L (0.300-4.500) uIu/ml Free T4 1.24 (0.8-1.6) ng/dl Random Cortisol mcg/dl Nasal Screen MRSA (PCR) (Negative) Crossmatch 09/16/19 Range/Units 13:58 WBC (4.8-10.8) K/uL RBC (4.7-6.1) M/uL Hgb (14.0-18.0) g/dL Hct (42-52) % MCV (80-100) fL MCH (25-34) pg MCHC (32-36) g/dL RDW Std Deviation (36.4-46.3) fL RDW Coeff of Alin (11.5-14.5) % Plt Count (130-400) K/uL MPV (7.4-10.4) fL Absolute Nucleated RBC (0-0) K/uL Nucleated RBC % (auto) % Neutrophils % (Manual) % Lymphocytes % (Manual) % Monocytes % (Manual) % Eosinophils % (Manual) % Basophils % (Manual) % Metamyelocytes % (Man) % Myelocytes % (Man) % Neutrophils # (Manual) (1.4-6.5) K/uL Total Absolute Neuts (1.4-6.5) K/uL Lymphocytes # (Manual) (1.2-3.4) K/uL Total Abs Lymphocytes (1.2-3.4) K/uL Monocytes # (Manual) (0.11-0.59) K/uL Eosinophils # (Manual) (0-0.5) K/uL Basophils # (Manual) (0-0.2) K/uL Metamyelocytes # (Man) (0-0) K/uL Myelocytes # (Manual) (0-0) K/uL Dohle Bodies Platelet Estimate (Normal) Giant Platelets Polychromasia Spherocytes Target Cells PT (9.0-12.0) Seconds INR (0.9-1.1) Sample Site POC pH (7.35-7.45) POC pCO2 (35-46) mmHg POC pO2 (80-95) mmHg POC HCO3 (19-24) cecy/L POC Total CO2 (24-31) mmol/L POC Base Excess (-9-1.8) cecy/L ABG pH (7.35-7.45) ABG pCO2 (35-46) mmHg ABG pO2 (80-95) mmHg ABG HCO3 (19-24) mmol/L POC ABG O2 Sat (90-95) % ABG O2 Saturation (90-95) % ABG Base Excess (-9-1.8) mEq/L Shan Test (Pos) Barometric Pressure mm/Hg Oxygen Given O2 Delivery Device POC O2 Rate Minute Ventilation POC FiO2 % Tidal Volume PEEP Sodium (136-145) mmol/L Potassium (3.5-5.1) mmol/L Chloride (98-107) mmol/L Carbon Dioxide (21-32) mmol/L Anion Gap (3-11) BUN (7-18) mg/dl Creatinine (0.6-1.4) mg/dl Est Cr Clr Drug Dosing ml/min Est GFR ( Amer) Est GFR (Non-Af Amer) BUN/Creatinine Ratio (10-20) Glucose (70-99) mg/dl POC Glucose (70-99) mg/dl POC Glucose (other) (70-99) mg/dl Lactate (0.4-2.0) mmol/L Calcium (8.5-10.1) mg/dl Phosphorus (2.5-4.9) mg/dl Magnesium (1.8-2.4) mg/dl Iron (35-175) mcg/dl TIBC (250-450) mcg/dl Transferrin (200-360) mg/dl Transferrin % Sat (20-50) % Total Bilirubin (0.2-1) mg/dl Direct Bilirubin (0-0.2) mg/dl AST (15-37) U/L ALT (12-78) U/L Alkaline Phosphatase (45-117) U/L Ammonia (11-32) umol/L Total Protein (6.4-8.2) gm/dl Albumin (3.4-5.0) gm/dl Globulin (2.5-4.0) gm/dl Albumin/Globulin Ratio (0.9-2) Procalcitonin (0-0.5) ng/ml TSH (0.300-4.500) uIu/ml Free T4 (0.8-1.6) ng/dl Random Cortisol mcg/dl Nasal Screen MRSA (PCR) (Negative) Crossmatch See Detail Medications Administered Current Inpatient Medications Acetaminophen (Tylenol) 650 mg PO Q4H PRN PRN Reason: Pain or Fever Stop: 10/16/19 16:21 Last Admin: 09/17/19 04:02 Dose: 650 mg Documented by: Albuterol (Duoneb) 3 ml NEB Q4H PRN PRN Reason: Shortness Of Breath Or Wheezing Stop: 10/16/19 23:50 Albuterol (Duoneb) 3 ml NEB Q4R KRISTIAN Stop: 10/17/19 14:59 Last Admin: 09/18/19 02:55 Dose: 3 ml Documented by: Carvedilol (Coreg) 6.25 mg PO BID KRISTIAN Stop: 10/16/19 23:50 Last Admin: 09/17/19 22:48 Dose: Not Given Documented by: Fentanyl Citrate (Fentanyl Citrate) 25 mcg IV Q2H PRN PRN Reason: Moderate Pain (4,5,6) Stop: 10/01/19 21:39 Last Admin: 09/17/19 22:04 Dose: 25 mcg Documented by: Guaifenesin (Mucinex) 600 mg PO Q12 KRISTIAN Stop: 10/17/19 20:59 Last Admin: 09/17/19 22:49 Dose: Not Given Documented by: Piperacillin Sod/Tazobactam (Sod 3.375 gm/ Dextrose) 115 mls @ 28.75 mls/hr IV Q8H KRISTIAN; Protocol Stop: 09/19/19 17:59 Last Infusion: 09/18/19 06:00 Dose: Infused Documented by: Vasopressin 20 units/ Sodium (Chloride) 101 mls @ 12.12 mls/hr IV .Q8H20M [facility] Stop: 10/17/19 22:59 Last Admin: 09/18/19 05:42 Dose: 0.04 unit/min, 12.1 mls/hr Documented by: Midazolam HCl (Versed) 125 mg in 250 mls @ 2 mls/hr IV .Q24H [facility]; Protocol Stop: 10/17/19 23:14 Last Admin: 09/17/19 23:39 Dose: 1 mg/hr, 2 mls/hr Documented by: Norepinephrine Bitartrate 16 (mg/ Dextrose) 516 mls @ 119.061 mls/hr IV .Q4H21M [facility]; Protocol Stop: 10/17/19 23:14 Last Admin: 09/17/19 23:47 Dose: 0.3 mcg/kg/min, 51 mls/hr Documented by: Hydrocortisone Sodium (Succinate 50 mg/ Syringe) 1 mls @ 4 mls/min IV Q6H [facility] Stop: 09/21/19 05:59 Last Admin: 09/18/19 05:44 Dose: 4 mls/min Documented by: Lactulose (Chronulac) 20 gm PO TID [facility] Stop: 10/17/19 00:14 Last Admin: 09/17/19 22:47 Dose: Not Given Documented by: Levothyroxine [facility]) [facility] Stop: 10/17/19 06:29 Last Admin: 09/18/19 05:37 Dose: Not Given Documented by: Levothyroxine Sodium (Synthroid) 50 mcg PO DAILYBB [facility] Stop: 10/17/19 06:29 Last Admin: 09/18/19 05:37 Dose: Not Given Documented by: Midazolam HCl (Versed Bolus From Bag) 2 mg IV Q60M PRN PRN Reason: Sedation Stop: 10/17/19 23:08 Miscellaneous (Icu Protocol For Hyperglycemia) 1 ea N/A PRN PRN; Protocol PRN Reason: Hyperglycemia Protocol Stop: 09/19/19 21:39 Miscellaneous Information (Consult) 1 ea N/A UD PRN PRN Reason: Consult Stop: 10/17/19 11:47 Ondansetron HCl (Zofran) 4 mg IV Q6H PRN PRN Reason: Nausea Stop: 10/16/19 16:21 Oxycodone HCl (Roxicodone Immediate Rel) 90 mg PO Q8 KRISTIAN Stop: 10/01/19 21:59 Last Admin: 09/18/19 05:37 Dose: Not Given Documented by: Oxycodone HCl (Roxicodone Immediate Rel) 10 mg PO Q4H PRN PRN Reason: Pain Stop: 10/01/19 17:44 Pantoprazole Sodium (Protonix) 40 mg PO BID KRISTIAN Stop: 10/17/19 11:59 Last Admin: 09/17/19 22:49 Dose: Not Given Documented by: Polyethylene Glycol (Miralax Powder Packet) 17 gm PO DAILY KRISTIAN Stop: 10/18/19 08:59 Propofol (Diprivan Bolus From Bag) 20 mg IV Q5M PRN PRN Reason: Sedation Stop: 09/20/19 21:39 Sucralfate (Carafate Tab) 1 gm PO TID KRISTIAN Stop: 10/16/19 23:50 Last Admin: 09/17/19 22:47 Dose: Not Given Documented by: Tamsulosin HCl (Flomax) 0.4 mg PO HS KRISTIAN Stop: 10/16/19 23:50 Last Admin: 09/17/19 22:48 Dose: Not Given Documented by: (1) GI bleed GI bleed type/associated pathology: unspecified gastrointestinal hemorrhage type Qualified Code(s): K92.2 - Gastrointestinal hemorrhage, unspecified (2) Hypothyroidism Hypothyroidism type: unspecified Qualified Code(s): E03.9 - Hypothyroidism, unspecified (3) Leukocytosis Leukocytosis type: unspecified Qualified Code(s): D72.829 - Elevated white blood cell count, unspecified (4) COPD (chronic obstructive pulmonary disease) COPD type: unspecified COPD Qualified Code(s): J44.9 - Chronic obstructive pulmonary disease, unspecified (5) GERD (gastroesophageal reflux disease) Esophagitis presence: esophagitis presence not specified Qualified Code(s): K21.9 - Gastro-esophageal reflux disease without esophagitis (6) Chronic sinusitis Sinusitis location: unspecified location Qualified Code(s): J32.9 - Chronic sinusitis, unspecified
--- NOTE | 2019-09-18 07:13 | CT Scan Report ---
CT SCAN OF THE BRAIN WITHOUT IV CONTRAST CLINICAL HISTORY: Change in mental status. COMPARISON STUDY: CT of the brain dated 04/03/2019. TECHNIQUE: Unenhanced axial CT scan of the brain is performed from the vertex to the skull base. A d ose lowering technique was utilized adhering to the principles of ALARA. CT DOSE: 614.27 mGy.cm FINDINGS: An endotracheal tube is noted on the internet marketing director tomogram. Brain parenchyma: There is minimal microangiopathic change. There is no hemorrhage, mass effect, or e vidence of acute territorial ischemia by CT criteria. Nice-white matter differentiation is preserved. No extra-axial fluid collection is seen. Ventricles, sulci, cisterns: Normal in configuration. Intracranial vasculature: There is atherosclerotic calcification of the cavernous carotid arteries. Calvarium: Unremarkable. Sinuses and mastoids: There is evidence of previous paranasal sinus surgery. Mild mucosal thickening is noted throughout the paranasal sinuses. The mastoid air cells are well pneumatized. Orbits: The bony orbits are grossly intact. IMPRESSION: There is no hemorrhage, mass effect, or evidence of acute territorial ischemia by CT balaji andreson. ACT 112: Negative or not required by law. Electronically signed by: Guevara Bryson M.D. 09/18/2019 7:12 AM
--- NOTE | 2019-09-18 07:17 | CT Scan Report ---
CT chest wo con CT DOSE: 606.90 mGy.cm HISTORY: hypoxic respiratory failure TECHNIQUE: Multiaxial CT images of the chest were performed without contrast. A dose lowering techni que was utilized adhering to the principles of ALARA. COMPARISON: Chest CT 04/03/2019. FINDINGS: No pneumothorax. Endotracheal tube terminates 3.5 cm from the scott. Emphysema. Punctate c alcifications within the right lung apex. Dense consolidation involving the majority of the bilateral lower lobes with associated air bronchograms. Fat fluid level within the mid esophagus. The heart is mildly enlarged. No pleural or pericardial effusions. Limited views of the upper abdomen demonstrate a normal liver and spleen. Cholelithiasis. Right-sided nephrolithiasis. Hyperdense periportal lymph nodes are again noted. Hyperdense mildly enlarged distal paraesophageal lymph nodes and a few promine nt used on lymph nodes remain unchanged. No suspicious lytic or blastic osseous lesions. Right jugula r central venous catheter terminates in the SVC. IMPRESSION: 1. Dense consolidation involving the majority of the bilateral lower lobes likely representing a pneu monia. This has progressed in the interval. 2. Endotracheal tube terminates 3.5 cm from the scott. Cholelithiasis and right-sided nephrolithiasi s. 3. Additional findings as described above. ACT 112: Negative or not required by law. Electronically signed by: Maycol Sanz M.D. 09/18/2019 7:16 AM
[2019-09-18 07:42] LABS: Hypochromasia Present
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
[2019-09-18] MEDS: POLYETHYLENE (MIRALAX) 17 GM PACK PO SCH (08:48)
[2019-09-18] MEDS: PANTOprazole 40 MG TAB PO SCH (08:48)
[2019-09-18] MEDS: carvediloL 6.25 MG TAB PO SCH (08:48)
[2019-09-18] MEDS: guaiFENesin 600 MG TABCR PO SCH (08:48)
[2019-09-18] MEDS: SUCRALFATE 1 GM TAB PO SCH ×2 (08:48→14:20)
[2019-09-18] MEDS: LACTULOSE SYRUP 20 GM/30 ML UDC PO SCH ×3 (08:48→21:06)
[2019-09-18] MEDS ORDERED: VANCOMYCIN CONSULT ACTIVE PRN (10:28)
[2019-09-18] MEDS ORDERED: VANCOMYCIN HCL 2,000 MG in SODIUM CHLORIDE 0.9% 500 ML IV STA (10:30)
[2019-09-18] MEDS: NOREPINEPHRINE BIT INJ 16 MG in DEXTROSE 5% 500 ML IV SCH (10:32)
[2019-09-18] MEDS: fentaNYL citrate 100 MCG/2 ML VIAL IV PRN (10:32)
[2019-09-18] MEDS: PANTOprazole 40 MG in SYRINGE 0 ML IV SCH ×2 (10:52→21:05)
--- NOTE | 2019-09-18 10:52 | Critical Care Progress Note ---
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 He developed progressive mental status changes and hypoxemic respiratory failure and was eventually transferred to the ICU where he was intubated and a central line was placed. He had refractory shock requiring initiation of 2 vasopressor agents. Recommendations: NEURO - Altered mental status unclear and likely multifactorial due to combinations of septic shock, poor perfusion, metabolic encephalopathy, and hepatic encephalopathy will elevated ammonia level. OG tube placed and initiate l actulose. Continue supportive care. Imaging showed no acute abnormality. Continue to follow clinically. CARDIAC/VASCULAR - Etiology of the hypotension is somewhat unclear. Septic shock is a possibility however the patient's lactate was normal. No evidence of significant adrenal insufficiency. His echocardiogram from 2019 showed preserved ejection fraction with an EF of 55 to 60% and only grade 1 diastolic dysfunction. He appears adequately resuscitated currently. We will check a CVP. Continue to wean vasopressors as tolerated. Hopefully we can get him off vasopressin and start working on the norepinephrine. RESPIRATORY - Acute on chronic hypoxemic respiratory failure. CT scan shows dense lower lobe consolidation. Aspiration would be a consideration. He previously grew ESBL K lebsiella. See ID notes below. Continue mechanical ventilation. Increase PEEP to 8 and try and decrease FiO2 down below 0.6. SBT tomorrow depending on vent settings and hemodynamic stability. GI/NUTRITION - Upper GI bleed: GI notes reviewed. He does not appear to be actively bleeding currently and hemoglobin and hematocrit remained stable. We will continue to trend over time. Appreciate GI consultation notes. History of GI MALT lymphoma. Holding therapy for now. RENAL/LYTES - Kidney function is stable. Follow electrolytes and replete as tolerated. - History of BPH. Sanchez in place - Strict I&Os. ENDO - Glycemic control per protocol. We will taper hydrocortisone as his random level was adequate. Will need to replace thyroid if unable to initiate tube feeding over the next 72 hours HEME - Acute blood loss anemia in the setting of GI bleeding. Trend H&H. Transfuse as needed. ID - Suspected multifocal pneumonia: Await respiratory cultures. May require bronchoscopy with BAL depending on clinical course. Transitioned to ertapenem and vancomycin given positive nasal MRSA swab and prior history of V BSL Klebsiella. COVID test negative. LINES/IV ACCESS - PIVs x2 RIGHT IJ RIGHT radial arterial line ET tube: 8.0 Kiswahili at 27 cm Sanchez catheter DVT PROPHYLAXIS - Hold on chemoprophylaxis secondary to upper GI bleeding. SCDs I have personally spent 85 minutes of critical care time in the direct management of this patient. This is a life/limb threatening event. This includes time spent evaluating patient, direct bedside care, chart review, placing orders, interpretation of diagnostic studies, discussion with consultants, patient, and family members, as well as other required patient management activities. This time is exclusive of all separately billable procedures, and teaching time and separate from and in addition to any other critical care service time. (2) Aspiration pneumonia: (3) Respiratory failure with hypoxia: (4) Admitted to intensive care unit: (5) Anemia: Admission and Anticipated Discharge Date Admission Date: September 16, 2019 Subjective Intubated and sedated Review of Systems Review of Systems: Unobtainable due to endotracheal tube Results & Data Results & Data ([facility]) Vital Signs (Past 12 Hours) Vital Signs Temp Pulse Resp BP Pulse Ox 09/18/19 10:00 36.4 C L 55 L 149/71 H 99 09/18/19 09:30 36.5 C 54 L 98 09/18/19 09:00 36.5 C 59 L 135/71 99 09/18/19 08:30 36.6 C 58 L 98 09/18/19 08:01 36.6 C 58 L 98 09/18/19 08:00 36.6 C 58 L 136/70 98 09/18/19 07:30 36.6 C 49 L 99 09/18/19 07:25 56 L 16 98 09/18/19 07:01 36.7 C 57 L 142/58 H 97 09/18/19 07:00 36.7 C 65 97 09/18/19 06:01 36.7 C 63 146/76 H 96 09/18/19 05:49 36.7 C 67 129/67 97 09/18/19 05:31 36.8 C 62 141/63 H 96 09/18/19 05:01 36.9 C 62 115/61 96 09/18/19 05:00 36.9 C 65 96 09/18/19 04:52 60 19 96 09/18/19 04:30 37.0 C 63 137/66 96 09/18/19 04:00 37.1 C 61 136/65 95 09/18/19 03:30 37.3 C 65 130/61 94 09/18/19 03:00 37.6 C H 67 17 125/63 95 09/18/19 02:58 71 16 94 09/18/19 02:30 37.8 C H 73 16 125/56 L 94 09/18/19 02:00 38.1 C H 70 107/60 94 09/18/19 01:30 38.2 C H 68 120/54 L 95 09/18/19 01:00 38.4 C H 77 126/64 93 09/18/19 00:56 77 129/58 L 94 09/18/19 00:53 78 21 92 09/18/19 00:51 68 96/39 L 90 09/18/19 00:05 74 114/62 94 09/18/19 00:00 82 104/61 93 09/17/19 23:55 68 107/58 L 93 09/17/19 23:50 70 104/67 93 09/17/19 23:45 81 122/54 L 93 09/17/19 23:40 74 121/60 93 09/17/19 23:36 84 112/58 L 91 09/17/19 23:30 76 116/62 94 09/17/19 23:26 84 106/58 L 94 09/17/19 23:09 85 68/42 L 91 09/17/19 23:04 85 74/43 L 94 09/17/19 23:00 84 93/53 L 94 09/17/19 22:58 78 23 93 Laboratory Results 09/18/19 04:24 09/18/19 04:24 Prior sputum culture showed E BSL Klebsiella Lactate is been normal. Random cortisol [address] of the chest independently reviewed. There are dense consolidations in the bilateral lower lobes. CT of the head was independently reviewed. No acute abnormality identified. Coding Level of Care Code Critical Care 1st 30-74 mins Diagnoses Septic shock A41.9; R65.21 Aspiration pneumonia J69.0 Respiratory failure with hypoxia J96.91 Admitted to intensive care unit Z78.9 Anemia D64.9 Time Spent (min) 85
[2019-09-18] MEDS: ERTAPENEM SODIUM 1,000 MG in SODIUM CHLORIDE 0.9% 50 ML IV SCH (10:58)
[2019-09-18] MEDS ORDERED: CALCIUM CHLORIDE 10% 1,000 MG in SODIUM CHLORIDE 0.9% 50 ML IV ONE (11:15)
[2019-09-18] MEDS ORDERED: METHADONE ORAL SOLN 10 MG/5 ML UDP PO SCH (12:00)
--- NOTE | 2019-09-18 12:35 | Pharmacy Report ---
Pharmacy Abx Dose Short Note - Date of Service September 18, 2019 - Assessment & Plan Assessment 69 year old M receiving vancomycin and ertapenem for treatment of possible pulmonary source. Of note patient has a history of klebsiella pneumoniae ESBL. Current micro data reveals gram neg bacilli from sputum and positive MRSA nasal swab. Day # 1 of antimicrobial therapy. Plan Vancomycin * Loading dose of 2000mg (~23 mg/kg) X 1 @ 1100 * Initiate dose of 1250 mg IV every 12 hours this evening @ 2300 * Goal trough level : 15 to 20 mcg/mL * Trough or random level ordered for: 09/20/19 Pharmacy will continue to follow and will adjust dose/frequency as necessary. Thank you.
[2019-09-18] MEDS: METHADONE ORAL SOLN 2 MG/ML PO SCH ×2 (12:40→21:08)
[2019-09-18] MEDS: PATIENT'S OWN CONTROLLED MED PO SCH ×2 (12:41→21:08)
[2019-09-18] MEDS: SUCRALFATE 1 GM/10 ML UDC PO SCH (21:05)
[2019-09-18] MEDS: VANCOMYCIN HCL 1,250 MG in SODIUM CHLORIDE 0.9% 250 ML IV SCH (22:27)
[2019-09-19] MEDS: ALBUT/IPRATROP 3MG/0.5MG NEB 3 ML VIAL NEB SCH ×6 (02:30→23:21)
[2019-09-19] MEDS ORDERED: METOPROLOL TARTRATE 1 MG/ML VIAL IV STA (03:56)
[2019-09-19] MEDS ORDERED: METOPROLOL TARTRATE 1 MG/ML VIAL IV ONE (04:02)
[2019-09-19] MEDS: MIDAZOLAM HCL 125 MG/250 ML BAG IV SCH (05:08)
[2019-09-19] MEDS: NOREPINEPHRINE BIT INJ 16 MG in DEXTROSE 5% 500 ML IV SCH ×2 (05:08→05:09)
[2019-09-19 05:11] LABS: INR 1.3 (0.9-1.1)
[2019-09-19] MEDS: LEVOTHYROXINE SODIUM 50 MCG TABLET PO SCH (05:24)
[2019-09-19] MEDS: LEVOTHYROXINE SODIUM 200 MCG TABLET PO SCH (05:24)
[2019-09-19 05:31] LABS: Hematocrit (blood only) 26.7 % (42-52); Mean Corpuscular Hemoglobin 22.5 pg (25-34); Mean Corpuscular Volume 75.2 fL (80-100); Mean Platelet Volume 10.4 fL (7.4-10.4); Nucleated RBC # (auto) 0.92 K/uL (0-0); Nucleated RBC % (auto) 2.4 %; Platelet Count 255 K/uL (130-400); RDW Coefficient of Variation 19.4 % (11.5-14.5); RDW Standard Deviation 53.4 fL (36.4-46.3); Red Blood Count 3.55 M/uL (4.7-6.1); White Blood Count 38.35 K/uL (4.8-10.8)
[2019-09-19 05:42] LABS: Basophils # (auto) 0.04 K/uL (0-0.2); Basophils % (auto) 0.1 %; Eosinophils # (auto) 0.01 K/uL (0-0.5); Hypochromasia Present; Immature Granulocytes # (auto) 0.25 K/uL (0.00-0.02); Immature Granulocytes % (auto) 0.7 %; Lymphocytes # (auto) 2.67 K/uL (1.2-3.4); Monocytes # (auto) 4.14 K/uL (0.11-0.59); Monocytes % (auto) 10.8 %; Neutrophils # (auto) 31.24 K/uL (1.4-6.5); Neutrophils % (auto) 81.4 %; Polychromasia 1+; Target Cells 1+
[2019-09-19 05:49] LABS: Albumin Level 1.4 gm/dl (3.4-5.0); BUN Creatinine Ratio 23.6 (10-20); Bilirubin,Total 0.6 mg/dl (0.2-1); Calcium 8.1 mg/dl (8.5-10.1); Creatinine Clr Calc Pharmacy 95.4 ml/min; Est GFR (African American) 107.1; Est GFR (Non-African American) 92.4; Magnesium 1.9 mg/dl (1.8-2.4); Phosphorus 2.1 mg/dl (2.5-4.9); Potassium 3.7 mmol/L (3.5-5.1); Total Protein 5.9 gm/dl (6.4-8.2)
[2019-09-19] MEDS ORDERED: POTASSIUM PHOS 3 MMOL/1 ML INFUSION IV STA (05:56)
[2019-09-19 06:13] LABS: iSTAT Art Bld Gas pCO2 Correct 34 mmHg (35-46); iSTAT Arterial Blood Gas HCO3 24 meg/L (19-24); iSTAT Arterial Blood Gas pCO2 35 mmHg (35-46); iSTAT Arterial Blood Gas pH 7.44 (7.35-7.45); iSTAT Arterial Blood Gas pO2 59 mmHg (80-95); iSTAT Arterial Blood Gas pO2 C 55; iSTAT Carbon Dioxide 24 mmol/L (24-31); iSTAT FiO2 40 %; iSTAT Hematocrit 27 % (42-52); iSTAT Hemoglobin 9.2 g/dl (14.0-18.0); iSTAT Potassium 3.5 mmol/L (3.3-5.0); iSTAT Site Art Line; iSTAT Sodium 138 mmol/L (135-144)
[2019-09-19] MEDS ORDERED: POTASSIUM PHOSPHATE 15 MMOL in SODIUM CHLORIDE 0.9% 250 ML IV ONE (06:15)
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
[2019-09-19] MEDS: LACTULOSE SYRUP 20 GM/30 ML UDC PO SCH ×4 (07:49→20:08)
[2019-09-19] MEDS: POLYETHYLENE (MIRALAX) 17 GM PACK PO SCH (07:50)
[2019-09-19] MEDS: METHADONE ORAL SOLN 2 MG/ML PO SCH ×2 (07:50→20:11)
[2019-09-19] MEDS: SUCRALFATE 1 GM/10 ML UDC PO SCH ×2 (07:50→20:09)
[2019-09-19] MEDS: PATIENT'S OWN CONTROLLED MED PO SCH ×2 (07:50→20:11)
[2019-09-19] MEDS ORDERED: METOPROLOL TARTRATE 1 MG/ML VIAL IV PRN (08:20)
--- NOTE | 2019-09-19 08:21 | Critical Care Progress Note ---
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 He developed progressive mental status changes and hypoxemic respiratory failure and was eventually transferred to the ICU where he was intubated and a central line was placed. He had refractory shock requiring initiation of 2 vasopressor agents. 24-hour events: Patient was weaned off of all vasopressor agents and has been hemodynamically stable. Vent settings have significantly decreased and he was completing an SBT this morning with an RSB I of less than 100 and. He was able to follow commands on a limited basis and felt appropriate for trial of extubation. Patient did go into atrial fibrillation overnight. Recommendations: NEURO - Altered mental status unclear and likely multifactorial due to combinations of septic shock, poor perfusion, metabolic encephalopathy, and hepatic encephalopathy will elevated ammonia level. Continue lactulose and repeat ammonia level in the morning. Follow clinically but I do not see an indication for repeat imaging or additional work-up for now as his mental status appears to be clearing. The patient is on very high doses of oxycodone in the outpatient setting. Methadone is been initiated to prevent withdrawal. We will discontinue the fentanyl and use as needed oxycodone orally. CARDIAC/VASCULAR - Probable septic shock. His echocardiogram from 2019 showed preserved ejection fraction with an EF of 55 to 60% and only grade 1 diastolic dysfunction. Off all vasopressors currently. He is now in atrial fibrillation but relatively controlled. He was on Coreg in the outpatient setting. We will start metoprolol to see if we can potentially convert him or keep him adequately rate controlled. Follow blood pressure. RESPIRATORY - Acute on chronic hypoxemic respiratory failure. CT scan shows dense lower lobe consolidation. Aspiration would be a consideration. SBT reassuring and will plan for trial of extubation this morning and see how he does. Wean oxygen as tolerated. Would benefit from incentive spirometry and out of bed to chair as tolerated. GI/NUTRITION - Upper GI bleed: GI notes reviewed. He does not appear to be actively bleeding currently and hemoglobin and hematocrit remained stable. We will continue to trend over time. Appreciate GI consultation notes. No plans for urgent endoscopy. History of GI MALT lymphoma. Holding therapy for now. Will need repeat swallow study in 24 hours to assess for potential aspiration. RENAL/LYTES - Kidney function is stable. Follow electrolytes and replete as tolerated. - History of BPH. Sanchez in place - Strict I&Os. Can likely discontinue Sanchez today for voiding trials ENDO - Glycemic control per protocol. We will discontinue hydrocortisone as his random level was adequate. Can likely restart thyroid medications once he is tolerating p.o. HEME - Acute blood loss anemia in the setting of GI bleeding. Hemoglobin is been stable. No indication for transfusion. Currently holding Imbruvica for his GI MALT lymphoma. ID - COVID negative. Bibasilar pneumonia with ESBL Klebsiella sensitive to imipenem and ertapenem. Day #2 vancomycin and ertapenem. We will continue vancomycin f or now given possibility of overgrowth from the gram-negative rods and observe for 72 hours. If cultures are negative at 72 hours, vancomycin can be discontinued. Will likely require at least 10 to 14 days therapy with ertapenem given his immunocompromise state. Continue to trend leukocytosis LINES/IV ACCESS - PIVs x2 RIGHT IJ RIGHT radial arterial line ET tube: 8.0 Romanian at 27 cm Sanchez catheter DVT PROPHYLAXIS - Hold on chemoprophylaxis secondary to upper GI bleeding. SCDs (2) Aspiration pneumonia: (3) Respiratory failure with hypoxia: (4) Admitted to intensive care unit: (5) Anemia: Admission and Anticipated Discharge Date Admission Date: September 16, 2019 Subjective Intubated and sedated Review of Systems Review of Systems: Unobtainable due to endotracheal tube Physical Exam Constitutional: well developed and + mechanically ventilated Intubated and sedated Neck: trachea midline, no thyromegaly Respiratory: no respiratory distress and no retractions Auscultation: + crackles Coarse rhonchi in the bilateral lower lung lew Cardiovascular: RRR, no murmur, no edema Gastrointestinal (Abdomen): normal bowel sounds, soft, nontender, no hepatosplenomegaly Musculoskeletal: Extremities: extremities normal to inspection Skin: no rashes, warm and dry Neurologic: Nonfocal exam Lymphatic: no cervical lymphadenopathy Results & Data Results & Data ([facility]) Vital Signs (Past 12 Hours) Vital Signs Temp Pulse Pulse Resp BP Pulse Ox 09/19/19 07:23 116 H 20 91 09/19/19 06:31 36.4 C L 98 H 91 09/19/19 06:30 36.4 C L 105 H 104/71 91 09/19/19 06:01 36.4 C L 90 94 09/19/19 06:00 36.4 C L 100 H 102/66 94 09/19/19 05:45 97 H 17 92 09/19/19 05:30 36.4 C L 108 H 90 09/19/19 05:01 36.4 C L 97 H 94 09/19/19 05:00 36.4 C L 92 H 96/62 L 94 09/19/19 04:04 129 H 102/53 L 09/19/19 04:01 36.5 C 127 H 90 09/19/19 04:00 36.5 C 115 H 92/59 L 90 09/19/19 03:01 36.4 C L 121 H 93 09/19/19 03:00 36.4 C L 112 H 116/65 95 09/19/19 02:30 66 17 95 09/19/19 02:01 36.4 C L 72 94 09/19/19 02:00 36.4 C L 64 111/58 L 94 09/19/19 01:41 64 20 96 09/19/19 01:30 36.4 C L 63 95 09/19/19 01:00 36.3 C L 64 113/62 95 09/19/19 00:00 36.2 C L 60 121/66 95 09/18/19 23:10 60 18 95 09/18/19 23:07 62 09/18/19 23:00 36.1 C L 57 L 127/72 96 09/18/19 22:30 36.0 C L 57 L 97 09/18/19 22:00 36.0 C L 55 L 18 101/55 L 96 09/18/19 21:00 36.0 C L 56 L 103/55 L 96 Laboratory Results 09/19/19 04:30 09/19/19 04:30 Sputum culture growing Klebsiella with extended spectrum beta-lactamase activity. Sensitive to imipenem and ertapenem Diagnostic Findings Chest x-ray from today was independently reviewed. Tubes and lines are in good position. There are hazy persistent bibasilar opacities. Coding Level of Care Code 77932 Subseq Hosp Care Lvl 3 Diagnoses Septic shock A41.9; R65.21 Aspiration pneumonia J69.0 Respiratory failure with hypoxia J96.91 Admitted to intensive care unit Z78.9 Anemia D64.9
[2019-09-19] MEDS: PANTOprazole 40 MG in SYRINGE 0 ML IV SCH ×2 (08:37→20:09)
[2019-09-19] MEDS: HYDROCORTISONE SOD 50 MG in SYRINGE 0 ML IV SCH (08:38)
[2019-09-19] MEDS ORDERED: OXYCODONE HCL IR 5 MG TAB (IMMEDIATE RELEASE) PO PRN (09:01)
--- NOTE | 2019-09-19 10:43 | Hospitalist Progress Note ---
Date of Service September 19, 2019 Assessment & Plan (1) Respiratory failure with hypoxia: (2) Septic shock: September 16, patient's Mental status worsening and oxygen requirement increased Patient was given IV fluids on admission, concern for fluid overload Possibly patient may have aspirated History of ESBL Klebsiella pneumonia, And chronic sinusitis Started on Zosyn Initially Antibiotics then changed by ICU team after episode of acute hypoxic respiratory failure, currently on vancomycin and ertapenem given positive nasal MRSA swab and prior history of ESBL klebsiella pneumonia pna COVID negative Patient was intubated 7/ PM --> 7/3 AM Sputum culture obtained prior to this episode, positive for ESBL Klebsiella pneumonia White blood cell count significantly elevated, procalcitonin also elevated Patient also required pressors after admission to ICU, now off vasopressors Further care per ICU team New onset A. fib -Patient is now off vasopressors, and started by ICU team on metoprolol -Rate controlled -No anticoagulation started per ICU team, likely due to anemia and concern for GI bleed on admission -Continue to monitor (3) Hypoxia: Initially suspected due to anemia and underlying COPD - improved with oxygen, initially on admission. No known COVID exposure or sick contacts. COVID negative Hypoxia worsened morning after admission, possibly due to pulmonary congestion as patient received blood transfusion overnight, and IV fluids. Pt was using 3.5 L of O2 via nasal cannula Obtained chest x-ray and ABG, small dose of IV Lasix Patient has chronic sinusitis, several ENT surgeries in the past and 1 more planned in the near future. Sputum culture ordered as patient did have sputum production. Empiric antibiotic, Zosyn started. As above, patient's mental status worsened throughout the day, and oxygen requirement increased, requiring ICU consultation and transfer (4) GI bleed: Pt presented from [facility] ([place] with worsening of chronic anemia (Hgb 11.2 --> 7.4 since last month), heme positive stool, and ongoing N/V with hx of gastritis and esophageal varices (per chart although EGD earlier this year did not reveal varices) - Started on octreotide and Protonix gtts in the ED - Receiving one unit of PRBCs - follow H&H for stability post-transfusion -GI consulted Per GI: Hx of cirrhosis, recent EGD 2 month's ago w/o signs of varices, GAVE or portal HTN. 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 - DC Octreotide, PPI gtt. Continue him on Protonix 40mg BID - Deferring endoscopic eval at this time unless displaying hematemesis/coffee ground emesis/melena/hematochezia (5) JAMISON (acute kidney injury): Evidence of JAMISON with elevated BUN and creatinine compared to last labs - suspect component of dehydration Creatinine 1.54 on September 15 (admission) - Gentle IVF hydration provided on admission, fluids stopped next morning as he seemed to be fluid overloaded, and with evidence of pulmonary vascular congestion on x-ray, hypoxic, concern for increased pulmonary congestion -Creatinine normalized morning after admission to, 1.06, down from 1.54 on admission -Small dose of IV Lasix given to help with hypoxia/pulmonary congestion -Monitor renal function -renal function remains stable and normalized (6) Hypokalemia: - replete and monitor - Check magnesium and replete if needed (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 Being managed by a physician at [facility] ([place] - Holding Imbruvica on admission- may need to discus with oncology pending clinical course -Per further review, seen by telehealth, Dr. Perdomo (recurrent MZL with nodular involvement of the stomach), on Imbruvica -Patient saw Dr. Dias at [facility]. Dr. Dias elected not to do a bone marrow biopsy at that time. 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 Mr. Akbar has a history of MALT lymphoma and may have bone marrow involvement. He has an M spike of 1.9 g/dL. Plan to follow-up with Dr. Dias in September 2019 -Plan to [facility] History of renal cell carcinoma, status post partial nephrectomy (8) Hypothyroidism: - Continue outpatient levothyroxine - Check TSH - was low in March (9) Neuropathy: - Continue gabapentin for neuropathic pain (10) HTN (hypertension): - carvedilol on hold now - HELD Bumex due to JAMISON on admission, continue to hold -Patient required vasopressors in ICU, now off vasopressors (11) CAD (coronary artery disease): - HOLD aspirin for now due to concern for GI blood loss - carvedilol on hold now - Holding Bumex and Imdur - Monitor on telemetry - EKG reviewed and without evidence of acute ischemia on admission - New onset of A. fib, currently on metoprolol for rate control (12) COPD (chronic obstructive pulmonary disease): - Holding outpatient inhaler for now - PRN DuoNebs if symptomatic (13) GERD (gastroesophageal reflux disease): - On PPI gtt -Current care per ICU team (14) Chronic sinusitis: Has seen ENT in the past - recent course of Augmentin, eventual surgery per pt. on admission, did not seem acutely worse, deferred antibiotics initially However patient became more hypoxic, clearly had sputum production, started empiric Zosyn. Sputum culture ordered. (15) Leukocytosis: Ongoing issues since fall - unclear if active infection at present. May be related to chronic sinusitis, ongoing prednisone use, underlying lymphoma. Continue to monitor. Sputum culture ordered Given hypoxia, and sputum production, empiric Zosyn started. Update: Patient had increased oxygen requirement, contacted by nursing staff that patient required 10 L, satting at 90%. Contacted ICU for further evaluation (09/17/2019 evening) Patient ICU admission and was intubated and sedated. Currently patient is extubated. White blood cell count is currently significantly elevated, due to pneumonia, evidence of ESBL Klebsiella pneumonia and possible aspiration pneumonia Admission and Anticipated Discharge Date Admission Date: September 16, 2019 Subjective Patient was extubated this morning. He is off vasopressors. However now with new onset of A. fib. Patient is somnolent but answers questions most appropriately, he can say his name however does not know which hospital he is at. No fevers, chills, chest pain, chronic abdominal pain is well controlled at this time. Patient has significant productive cough with yellow/alves sputum production. Sputum culture positive for ESBL Klebsiella pneumonia Review of Systems Review of Systems: All systems reviewed & are unremarkable except as noted in HPI & below Constitutional: no fever and no chills Respiratory: no cough and no dyspnea Cardiovascular: no chest pain and no palpitations Gastrointestinal: no abdominal pain, no nausea and no vomiting Physical Exam Physical Exam: Constitutional: Elderly thin male laying in bed, somnolent, on oxygen mask Eyes: PERRL, conjunctivae normal, anicteric sclerae ENMT: Ears: no external ear abnormality Nose: no external nose abnormality Neck: Central line placed, R IJ Respiratory: + coarse breath sounds, on oxygen Cardiovascular: Rate/Rhythm: Irregular rhythm, no murmur noted, Extremities: normal capillary refill and no LE edema b/l Gastrointestinal (Abdomen): + bowel sounds; abdomen not distended, soft Musculoskeletal: Head/Neck/Chest: normocephalic, head atraumatic, moves extremities spontaneously Skin: no rashes, warm and dry Neuro/ Psych: Somnolent but arousable, answers most questions appropriately, speech is slow, no facial asymmetry noted, moves extremities spontaneously Results & Data Results & Data ([facility]) Vital Signs (Past 12 Hours) Vital Signs Temp Pulse Pulse Resp BP Pulse Ox 09/19/19 09:01 36.6 C 109 H 15 90 09/19/19 09:00 36.6 C 99 H 19 100/61 89 L 09/19/19 08:30 36.6 C 98 H 111/60 91 09/19/19 08:01 36.6 C 121 H 91 09/19/19 08:00 36.6 C 114 H 109/76 90 09/19/19 07:30 36.5 C 123 H 100/68 91 09/19/19 07:23 116 H 20 91 09/19/19 07:01 36.5 C 115 H 91 09/19/19 07:00 36.5 C 107 H 115/74 91 09/19/19 06:31 36.4 C L 98 H 91 09/19/19 06:30 36.4 C L 105 H 104/71 91 09/19/19 06:01 36.4 C L 90 94 09/19/19 06:00 36.4 C L 100 H 102/66 94 09/19/19 05:45 97 H 17 92 09/19/19 05:30 36.4 C L 108 H 90 09/19/19 05:01 36.4 C L 97 H 94 09/19/19 05:00 36.4 C L 92 H 96/62 L 94 09/19/19 04:04 129 H 102/53 L 09/19/19 04:01 36.5 C 127 H 90 09/19/19 04:00 36.5 C 115 H 92/59 L 90 09/19/19 03:01 36.4 C L 121 H 93 09/19/19 03:00 36.4 C L 112 H 116/65 95 09/19/19 02:30 66 17 95 09/19/19 02:01 36.4 C L 72 94 09/19/19 02:00 36.4 C L 64 111/58 L 94 09/19/19 01:41 64 20 96 09/19/19 01:30 36.4 C L 63 95 09/19/19 01:00 36.3 C L 64 113/62 95 09/19/19 00:00 36.2 C L 60 121/66 95 09/18/19 23:10 60 18 95 09/18/19 23:07 62 09/18/19 23:00 36.1 C L 57 L 127/72 96 Laboratory Results 09/19/19 09/19/19 09/19/19 Range/Units 06:08 06:08 06:00 WBC (4.8-10.8) K/uL RBC (4.7-6.1) M/uL Hgb (14.0-18.0) g/dL POC Hgb 9.2 L (14.0-18.0) g/dl Hct (42-52) % POC Hct 27 L (42-52) % MCV (80-100) fL MCH (25-34) pg MCHC (32-36) g/dL RDW Std Deviation (36.4-46.3) fL RDW Coeff of Alin (11.5-14.5) % Plt Count (130-400) K/uL MPV (7.4-10.4) fL Immature Gran % (Auto) % Neut % (Auto) % Lymph % (Auto) % Bates % (Auto) % Eos % (Auto) % Baso % (Auto) % Neut # (Auto) (1.4-6.5) K/uL Lymph # (Auto) (1.2-3.4) K/uL Bates # (Auto) (0.11-0.59) K/uL Eos # (Auto) (0-0.5) K/uL Baso # (Auto) (0-0.2) K/uL Immature Gran # (Auto) (0.00-0.02) K/uL Absolute Nucleated RBC (0-0) K/uL Nucleated RBC % (auto) % Polychromasia Hypochromasia Target Cells PT (9.0-12.0) Seconds INR (0.9-1.1) Sample Site Art Line POC pH 7.44 (7.35-7.45) POC pCO2 35 (35-46) mmHg POC pO2 59 L (80-95) mmHg POC HCO3 24 (19-24) cecy/L POC Total CO2 24 (24-31) mmol/L POC Base Excess -1.0 (-9-1.8) cecy/L ABG pH (Temp Correct) 7.450 (7.35-7.45) ABG pCO2 (Temp Corrct 34 L (35-46) mmHg POC ABG pO2 at Pt Temp 55 POC ABG O2 Sat 91.0 (90-95) % Shan Test NA O2 Delivery Device Ventilator POC FiO2 40 % PEEP 5 POC Sodium 138 (135-144) mmol/L Sodium (136-145) mmol/L POC Potassium 3.5 (3.3-5.0) mmol/L Potassium (3.5-5.1) mmol/L Chloride (98-107) mmol/L Carbon Dioxide (21-32) mmol/L Anion Gap (3-11) BUN (7-18) mg/dl Creatinine (0.6-1.4) mg/dl Est Cr Clr Drug Dosing ml/min Est GFR ( Amer) Est GFR (Non-Af Amer) BUN/Creatinine Ratio (10-20) Glucose (70-99) mg/dl POC Glucose (70-99) mg/dl POC Glucose (other) (70-99) mg/dl Calcium (8.5-10.1) mg/dl Phosphorus (2.5-4.9) mg/dl Magnesium (1.8-2.4) mg/dl Total Bilirubin (0.2-1) mg/dl Direct Bilirubin 0.3 H D (0-0.2) mg/dl AST (15-37) U/L ALT (12-78) U/L Alkaline Phosphatase (45-117) U/L Total Protein (6.4-8.2) gm/dl Albumin (3.4-5.0) gm/dl Procalcitonin 3.66 H (0-0.5) ng/ml 09/19/19 09/19/19 09/19/19 Range/Units 04:30 04:30 04:30 WBC 38.35 H* (4.8-10.8) K/uL RBC 3.55 L (4.7-6.1) M/uL Hgb 8.0 L (14.0-18.0) g/dL POC Hgb (14.0-18.0) g/dl Hct 26.7 L (42-52) % POC Hct (42-52) % MCV 75.2 L (80-100) fL MCH 22.5 L (25-34) pg MCHC 30.0 L (32-36) g/dL RDW Std Deviation 53.4 H (36.4-46.3) fL RDW Coeff of Alin 19.4 H (11.5-14.5) % Plt Count 255 (130-400) K/uL MPV 10.4 (7.4-10.4) fL Immature Gran % (Auto) 0.7 % Neut % (Auto) 81.4 % Lymph % (Auto) 7.0 % Bates % (Auto) 10.8 % Eos % (Auto) 0.0 % Baso % (Auto) 0.1 % Neut # (Auto) 31.24 H (1.4-6.5) K/uL Lymph # (Auto) 2.67 (1.2-3.4) K/uL Bates # (Auto) 4.14 H (0.11-0.59) K/uL Eos # (Auto) 0.01 (0-0.5) K/uL Baso # (Auto) 0.04 (0-0.2) K/uL Immature Gran # (Auto) 0.25 H (0.00-0.02) K/uL Absolute Nucleated RBC 0.92 H (0-0) K/uL Nucleated RBC % (auto) 2.4 % Polychromasia 1+ Hypochromasia Present Target Cells 1+ PT 14.0 H (9.0-12.0) Seconds INR 1.3 H (0.9-1.1) Sample Site POC pH (7.35-7.45) POC pCO2 (35-46) mmHg POC pO2 (80-95) mmHg POC HCO3 (19-24) cecy/L POC Total CO2 (24-31) mmol/L POC Base Excess (-9-1.8) cecy/L ABG pH (Temp Correct) (7.35-7.45) ABG pCO2 (Temp Corrct (35-46) mmHg POC ABG pO2 at Pt Temp POC ABG O2 Sat (90-95) % Shan Test O2 Delivery Device POC FiO2 % PEEP POC Sodium (135-144) mmol/L Sodium 139 (136-145) mmol/L POC Potassium (3.3-5.0) mmol/L Potassium 3.7 (3.5-5.1) mmol/L Chloride 111 H (98-107) mmol/L Carbon Dioxide 25 (21-32) mmol/L Anion Gap 3.0 (3-11) BUN 19 H (7-18) mg/dl Creatinine 0.80 D (0.6-1.4) mg/dl Est Cr Clr Drug Dosing 95.4 ml/min Est GFR ( Amer) 107.1 Est GFR (Non-Af Amer) 92.4 BUN/Creatinine Ratio 23.6 H (10-20) Glucose 117 H (70-99) mg/dl POC Glucose (70-99) mg/dl POC Glucose (other) (70-99) mg/dl Calcium 8.1 L (8.5-10.1) mg/dl Phosphorus 2.1 L D (2.5-4.9) mg/dl Magnesium 1.9 (1.8-2.4) mg/dl Total Bilirubin 0.6 D (0.2-1) mg/dl Direct Bilirubin (0-0.2) mg/dl AST 29 (15-37) U/L ALT 11 L (12-78) U/L Alkaline Phosphatase 50 (45-117) U/L Total Protein 5.9 L (6.4-8.2) gm/dl Albumin 1.4 L (3.4-5.0) gm/dl Procalcitonin (0-0.5) ng/ml 09/18/19 09/18/19 09/18/19 Range/Units 23:56 18:03 11:43 WBC (4.8-10.8) K/uL RBC (4.7-6.1) M/uL Hgb (14.0-18.0) g/dL POC Hgb (14.0-18.0) g/dl Hct (42-52) % POC Hct (42-52) % MCV (80-100) fL MCH (25-34) pg MCHC (32-36) g/dL RDW Std Deviation (36.4-46.3) fL RDW Coeff of Alin (11.5-14.5) % Plt Count (130-400) K/uL MPV (7.4-10.4) fL Immature Gran % (Auto) % Neut % (Auto) % Lymph % (Auto) % Bates % (Auto) % Eos % (Auto) % Baso % (Auto) % Neut # (Auto) (1.4-6.5) K/uL Lymph # (Auto) (1.2-3.4) K/uL Bates # (Auto) (0.11-0.59) K/uL Eos # (Auto) (0-0.5) K/uL Baso # (Auto) (0-0.2) K/uL Immature Gran # (Auto) (0.00-0.02) K/uL Absolute Nucleated RBC (0-0) K/uL Nucleated RBC % (auto) % Polychromasia Hypochromasia Target Cells PT (9.0-12.0) Seconds INR (0.9-1.1) Sample Site POC pH (7.35-7.45) POC pCO2 (35-46) mmHg POC pO2 (80-95) mmHg POC HCO3 (19-24) cecy/L POC Total CO2 (24-31) mmol/L POC Base Excess (-9-1.8) cecy/L ABG pH (Temp Correct) (7.35-7.45) ABG pCO2 (Temp Corrct (35-46) mmHg POC ABG pO2 at Pt Temp POC ABG O2 Sat (90-95) % Shan Test O2 Delivery Device POC FiO2 % PEEP POC Sodium (135-144) mmol/L Sodium (136-145) mmol/L POC Potassium (3.3-5.0) mmol/L Potassium (3.5-5.1) mmol/L Chloride (98-107) mmol/L Carbon Dioxide (21-32) mmol/L Anion Gap (3-11) BUN (7-18) mg/dl Creatinine (0.6-1.4) mg/dl Est Cr Clr Drug Dosing ml/min Est GFR ( Amer) Est GFR (Non-Af Amer) BUN/Creatinine Ratio (10-20) Glucose (70-99) mg/dl POC Glucose 148 H 162 H (70-99) mg/dl POC Glucose (other) 147 H (70-99) mg/dl Calcium (8.5-10.1) mg/dl Phosphorus (2.5-4.9) mg/dl Magnesium (1.8-2.4) mg/dl Total Bilirubin (0.2-1) mg/dl Direct Bilirubin (0-0.2) mg/dl AST (15-37) U/L ALT (12-78) U/L Alkaline Phosphatase (45-117) U/L Total Protein (6.4-8.2) gm/dl Albumin (3.4-5.0) gm/dl Procalcitonin (0-0.5) ng/ml Medications Administered Current Inpatient Medications Acetaminophen (Tylenol) 650 mg PO Q4H PRN PRN Reason: Pain or Fever Stop: 10/16/19 16:21 Last Admin: 09/17/19 04:02 Dose: 650 mg Documented by: Albuterol (Duoneb) 3 ml NEB Q4H PRN PRN Reason: Shortness Of Breath Or Wheezing Stop: 10/16/19 23:50 Albuterol (Duoneb) 3 ml NEB Q4R [facility] Stop: 10/17/19 14:59 Last Admin: 09/19/19 07:10 Dose: 3 ml Documented by: Carvedilol (Coreg) 6.25 mg PO BID [facility] Stop: 10/16/19 23:50 Last Admin: 09/18/19 08:48 Dose: Not Given Documented by: Guaifenesin (Mucinex) 600 mg PO Q12 [facility] Stop: 10/17/19 20:59 Last Admin: 09/18/19 08:48 Dose: Not Given Documented by: Norepinephrine Bitartrate 16 (mg/ Dextrose) 516 mls @ 0 mls/hr IV .Q0M [facility]; Protocol Stop: 10/17/19 23:14 Last Titration: 09/19/19 07:06 Dose: Infused Documented by: Pantoprazole Sodium 40 mg/ (Syringe) 10 mls @ 5 mls/min IV BID@0900,2100 [facility] Stop: 10/18/19 10:29 Last Admin: 09/19/19 08:37 Dose: 5 mls/min Documented by: Ertapenem 1,000 mg/ Sodium (Chloride) 60 mls @ 100 mls/hr IV Q24H [facility] Stop: 09/25/19 10:59 Last Infusion: 09/18/19 11:34 Dose: Infused Documented by: Vancomycin HCl 1,250 mg/ (Sodium Chloride) 275 mls @ 125 mls/hr IV Q12H [facility] Stop: 09/25/19 22:59 Last Infusion: 09/19/19 00:39 Dose: Infused Documented by: Lactulose (Chronulac) 20 gm PO TID [facility] Stop: 10/17/19 00:14 Last Admin: 09/19/19 07:49 Dose: 20 gm Documented by: [facility]: 10/17/19 06:29 Last Admin: 09/19/19 05:24 Dose: 200 mcg Documented by: Levothyroxine Sodium (Synthroid) 50 mcg PO DAILYBB [facility] Stop: 10/17/19 06:29 Last Admin: 09/19/19 05:24 Dose: 50 mcg Documented by: Methadone HCl (Methadone Hcl) 10 mg PO BID [facility] Stop: 10/02/19 12:29 Last Admin: 09/19/19 07:50 Dose: 10 mg Documented by: Metoprolol Tartrate (Lopressor) 5 mg IV Q5M PRN PRN Reason: Tachycardia Metoprolol Tartrate (Lopressor) 12.5 mg PO Q8 [facility] Stop: 10/19/19 13:59 Miscellaneous (I[facility] Protocol For Hyperglycemia) 1 ea N/A PRN PRN; Protocol PRN Reason: Hyperglycemia Protocol Stop: 09/19/19 21:39 Miscellaneous Information (Consult) 1 ea N/A UD PRN PRN Reason: Consult Stop: 10/18/19 10:27 Non-Formulary Medication (Patient's Own Controlled Med) 1 ea PO BID [facility] Stop: 10/02/19 12:29 Last Admin: 09/19/19 07:50 Dose: Not Given Documented by: Ondansetron HCl (Zofran) 4 mg IV Q6H PRN PRN Reason: Nausea Stop: 10/16/19 16:21 Oxycodone HCl (Roxicodone Immediate Rel) 10 mg PO Q4H PRN PRN Reason: Pain Stop: 10/01/19 17:44 Oxycodone HCl (Roxicodone Immediate Rel) 10 mg PO Q6 PRN PRN Reason: Pain Stop: 10/03/19 09:00 Pantoprazole Sodium (Protonix) 40 mg PO BID [facility] Stop: 10/17/19 11:59 Last Admin: 09/18/19 08:48 Dose: Not Given Documented by: Polyethylene Glycol (Miralax Powder Packet) 17 gm PO DAILY [facility] Stop: 10/18/19 08:59 Last Admin: 09/19/19 07:50 Dose: 17 gm Documented by: Sucralfate (Carafate) 1 gm PO BID [facility] Stop: 10/18/19 20:59 Last Admin: 09/19/19 07:50 Dose: 1 gm Documented by: Tamsulosin HCl (Flomax) 0.4 mg PO HS [facility] Stop: 10/16/19 23:50 Last Admin: 09/17/19 22:48 Dose: Not Given Documented by: (1) GI bleed GI bleed type/associated pathology: unspecified gastrointestinal hemorrhage type Qualified Code(s): K92.2 - Gastrointestinal hemorrhage, unspecified (2) Hypothyroidism Hypothyroidism type: unspecified Qualified Code(s): E03.9 - Hypothyroidism, unspecified (3) Leukocytosis Leukocytosis type: unspecified Qualified Code(s): D72.829 - Elevated white blood cell count, unspecified (4) COPD (chronic obstructive pulmonary disease) COPD type: unspecified COPD Qualified Code(s): J44.9 - Chronic obstructive pulmonary disease, unspecified (5) GERD (gastroesophageal reflux disease) Esophagitis presence: esophagitis presence not specified Qualified Code(s): K21.9 - Gastro-esophageal reflux disease without esophagitis (6) Chronic sinusitis Sinusitis location: unspecified location Qualified Code(s): J32.9 - Chronic sinusitis, unspecified
[2019-09-19] MEDS: VANCOMYCIN HCL 1,250 MG in SODIUM CHLORIDE 0.9% 250 ML IV SCH ×2 (10:49→21:59)
[2019-09-19] MEDS: ERTAPENEM SODIUM 1,000 MG in SODIUM CHLORIDE 0.9% 50 ML IV SCH (10:49)
--- NOTE | 2019-09-19 12:00 | Electrocardiogram Report ---
Test Reason : Blood Pressure : / mmHG Vent. Rate : 126 BPM Atrial Rate : 111 BPM P-R Int : 000 ms QRS Dur : 090 ms QT Int : 342 ms P-R-T Axes : 000 020 -56 degrees QTc Int : 495 ms Atrial fibrillation with rapid ventricular response Old Septal infarct (cited on or before 03-APR-2019) ST depression in Anterolateral leads Abnormal ECG When compared with ECG of 16-SEP-2019 13:14, Atrial fibrillation has replaced Sinus rhythm ST now depressed in Anterolateral leads Confirmed by Ramiro Rutherford ([id number]) on 09/19/2019 11:59:54 AM Referred By: REFERRED SELF Confirmed By:Ramiro Rutherford
[2019-09-19] MEDS: METOPROLOL TARTRATE 25 MG TAB PO SCH ×3 (13:38→22:00)
[2019-09-20] MEDS ORDERED: GLUCAGON FOR INJ 1 MG VIAL SQ PRN (01:04)
[2019-09-20] MEDS ORDERED: GLUCOSE 40% GEL 15 GM TUBE PO PRN (01:04)
[2019-09-20] MEDS ORDERED: GLUCOSE 10 TABS/TUBE PO PRN (01:04)
[2019-09-20] MEDS: DEXTROSE 50% 50 ML SYRINGE IV PRN ×2 (01:10→05:11)
[2019-09-20] MEDS: ALBUT/IPRATROP 3MG/0.5MG NEB 3 ML VIAL NEB SCH ×5 (03:17→22:40)
[2019-09-20 04:41] LABS: INR 1.2 (0.9-1.1); Prothrombin Time 12.1 Seconds (9.0-12.0)
[2019-09-20 04:56] LABS: Albumin Level 1.4 gm/dl (3.4-5.0); BUN Creatinine Ratio 19.9 (10-20); Est GFR (African American) 111.9; Est GFR (Non-African American) 96.5; Magnesium 1.8 mg/dl (1.8-2.4)
[2019-09-20 05:05] LABS: Bilirubin,Total 0.6 mg/dl (0.2-1); Phosphorus 1.3 mg/dl (2.5-4.9); Total Protein 5.7 gm/dl (6.4-8.2)
[2019-09-20] MEDS ORDERED: POTASSIUM PHOS 3 MMOL/1 ML INFUSION IV STA (05:10)
[2019-09-20] MEDS ORDERED: MAGNESIUM SULFATE / D5W 1 GM/100 ML BAG IV ONE (05:10)
[2019-09-20 05:13] LABS: Bilirubin Direct 0.3 mg/dl (0-0.2)
[2019-09-20 05:21] LABS: Hematocrit (blood only) 26.1 % (42-52); Mean Corpuscular Hemoglobin 23.3 pg (25-34); Mean Corpuscular Hgb Conc 30.7 g/dL (32-36); Mean Corpuscular Volume 75.9 fL (80-100); Mean Platelet Volume 10.1 fL (7.4-10.4); Nucleated RBC # (auto) 0.93 K/uL (0-0); Nucleated RBC % (auto) 2.8 %; Platelet Count 235 K/uL (130-400); RDW Coefficient of Variation 19.5 % (11.5-14.5); RDW Standard Deviation 54.1 fL (36.4-46.3); Red Blood Count 3.44 M/uL (4.7-6.1); White Blood Count 33.77 K/uL (4.8-10.8)
[2019-09-20] MEDS ORDERED: POTASSIUM PHOSPHATE 40 MMOL in SODIUM CHLORIDE 0.9% 1000ML 1,000 ML IV ONE (05:30)
[2019-09-20] MEDS: LEVOTHYROXINE SODIUM 200 MCG TABLET PO SCH (05:45)
[2019-09-20] MEDS: METOPROLOL TARTRATE 25 MG TAB PO SCH ×3 (05:45→20:26)
[2019-09-20] MEDS: LEVOTHYROXINE SODIUM 50 MCG TABLET PO SCH (05:46)
[2019-09-20 06:11] LABS: Basophils # (auto) 0.05 K/uL (0-0.2); Basophils % (auto) 0.1 %; Eosinophils # (auto) 0.02 K/uL (0-0.5); Eosinophils % (auto) 0.1 %; Hypochromasia Present; Immature Granulocytes # (auto) 0.41 K/uL (0.00-0.02); Immature Granulocytes % (auto) 1.2 %; Lymphocytes # (auto) 4.28 K/uL (1.2-3.4); Lymphocytes % (auto) 12.7 %; Monocytes # (auto) 4.07 K/uL (0.11-0.59); Monocytes % (auto) 12.1 %; Neutrophils # (auto) 24.94 K/uL (1.4-6.5); Neutrophils % (auto) 73.8 %; Target Cells 1+
[2019-09-20] MEDS: SODI CHLOR 2.5MEQ/ML 14.6% 77 MEQ in DEXTROSE 10% 1,000 ML IV SCH (06:24)
[2019-09-20] MEDS: METHADONE ORAL SOLN 2 MG/ML PO SCH ×2 (08:19→20:29)
[2019-09-20] MEDS: PANTOprazole 40 MG in SYRINGE 0 ML IV SCH ×2 (08:19→20:25)
[2019-09-20] MEDS: PATIENT'S OWN CONTROLLED MED PO SCH ×2 (08:19→20:29)
[2019-09-20] MEDS: LACTULOSE SYRUP 20 GM/30 ML UDC PO SCH ×3 (08:32→20:24)
[2019-09-20] MEDS: POLYETHYLENE (MIRALAX) 17 GM PACK PO SCH (08:32)
[2019-09-20] MEDS: SUCRALFATE 1 GM/10 ML UDC PO SCH ×2 (08:32→20:24)
--- NOTE | 2019-09-20 08:42 | Critical Care Progress Note ---
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 He developed progressive mental status changes and hypoxemic respiratory failure and was eventually transferred to the ICU where he was intubated and a central line was placed. He had refractory shock requiring initiation of 2 vasopressor agents. 24-hour events: Patient extubated and is done well. He has been in A. fib with rapid ventricular response and intermittently receiving IV doses of metoprolol. Speech therapy evaluations pending. Patient did develop mild hypoglycemia overnight requiring initiation of a D10 infusion. Recommendations: NEURO - Altered mental status unclear and likely multifactorial due to combinations of septic shock, poor perfusion, metabolic encephalopathy, and hepatic encephalopathy will elevated ammonia level. Now resolved. The patient is on very high doses of oxycodone in the outpatient setting. Methadone is been initiated to prevent withdrawal. Continue to follow clinically. CARDIAC/VASCULAR - Probable septic shock. His echocardiogram from 2019 showed preserved ejection fraction with an EF of 55 to 60% and only grade 1 diastolic dysfunction. Off all vasopressors. He is now in atrial fibrillation but relatively controlled. He was on Coreg in the outpatient setting. On oral metoprolol but currently on hold pending swallow evaluation. We will add judicious IV doses and increase his p.o. dose as blood pressure has stabilized. RESPIRATORY - Acute on chronic hypoxemic respiratory failure. CT scan shows dense lower lobe consolidation. Aspiration would be a consideration. Continue incentive spirometry and out of bed as tolerated. Wean oxygen as tolerated. GI/NUTRITION - Upper GI bleed: GI notes reviewed. He does not appear to be actively bleeding currently and hemoglobin and hematocrit remained stable. We will continue to trend over time. Appreciate GI consultation notes. No plans for endoscopy. History of GI MALT lymphoma. Holding therapy for now. Awaiting swallow evaluation RENAL/LYTES - Kidney function is stable. Follow electrolytes and replete as tolerated. - Remove Sanchez catheter and follow ENDO - Restarted p.o. thyroid medication. He was mildly hypoglycemic and initiated on a D10 drip. Anticipate that this can be likely discontinued once the patient is eating. HEME - Acute blood loss anemia in the setting of GI bleeding. Hemoglobin is been stable. No indication for transfusion. Currently holding Imbruvica for his GI MALT lymphoma. ID - COVID negative. Bibasilar pneumonia with ESBL Klebsiella sensitive to imipenem and ertapenem. Day #3 vancomycin and ertapenem. No gram-positive's identified on cultures and will discontinue vancomycin at this point time. Will likely require at least 10 to 14 days therapy with ertapenem given his immunocompromise state. Continue to trend leukocytosis LINES/IV ACCESS - PIVs x2 RIGHT IJ Sanchez catheter DVT PROPHYLAXIS - SCDs Disposition: The patient appears significantly improved at this point time. He is stable to transfer out of the intensive care unit. We will sign off once he is downgraded. Feel free to contact us with additional pulmonary critical care issues (2) Aspiration pneumonia: (3) Respiratory failure with hypoxia: (4) Admitted to intensive care unit: (5) Anemia: Admission and Anticipated Discharge Date Admission Date: September 16, 2019 Subjective Patient seen and examined. EMR reviewed. Discussed with critical care YOBANY and with bedside ICU nurse. Patient is extubated and doing well. He has been weaned down to nasal cannula. This morning we are able to get him up sitting in a chair. He states his breathing is better. He does have an appetite returning. His cough is less productive. He remains afebrile. Review of Systems Review of Systems: All systems reviewed & are unremarkable except as noted in HPI & below Physical Exam Constitutional: well developed; no acute distress and not ill appearing Neck: trachea midline, no thyromegaly Respiratory: no respiratory distress and no retractions Auscultation: + crackles Cardiovascular: RRR, no murmur, no edema Gastrointestinal (Abdomen): normal bowel sounds, soft, nontender, no hepatosplenomegaly Musculoskeletal: Extremities: extremities normal to inspection Skin: no rashes, warm and dry Lymphatic: no cervical lymphadenopathy Results & Data Results & Data ([facility]) Vital Signs (Past 12 Hours) Vital Signs Temp Pulse Pulse Resp BP Pulse Ox 09/20/19 06:14 36.8 C 09/20/19 06:01 86 26 H 89 L 09/20/19 06:00 101 H 32 H 94/63 L 88 L 09/20/19 05:30 89 16 91 09/20/19 05:01 88 15 92 09/20/19 05:00 92 H 15 104/58 L 90 09/20/19 04:30 96 H 19 89 L 09/20/19 04:01 93 H 24 90 09/20/19 04:00 89 32 H 105/62 89 L 09/20/19 03:30 92 H 14 96 09/20/19 03:17 93 H 20 89 L 09/20/19 03:01 123 H 19 116/78 89 L 09/20/19 03:00 101 H 23 87 L 09/20/19 02:30 88 28 H 88 L 09/20/19 02:09 37.0 C 09/20/19 02:01 89 22 89 L 09/20/19 02:00 88 25 H 108/68 93 09/20/19 01:30 90 14 86 L 09/20/19 01:01 96 H 35 H 133/74 89 L 09/20/19 01:00 116 H 21 74 L 09/20/19 00:30 92 H 19 92 09/20/19 00:24 101 H 22 117/76 91 09/20/19 00:15 125 H 16 90 09/20/19 00:00 105 H 09/19/19 23:30 89 11 L 95 09/19/19 23:22 90 19 93 09/19/19 23:01 94 H 15 88 L 09/19/19 23:00 84 15 114/79 89 L 09/19/19 22:30 98 H 18 89 L 09/19/19 22:02 96 H 13 105/67 91 09/19/19 22:00 92 H 23 91 09/19/19 21:30 119 H 21 09/19/19 21:24 36.9 C 09/19/19 21:00 105 H 22 114/78 89 L Laboratory Results 09/20/19 04:10 09/20/19 04:10 Diagnostic Findings No new imaging Coding Level of Care Code 56917 Subs Hosp Care Lvl 3 Diagnoses Septic shock A41.9; R65.21 Aspiration pneumonia J69.0 Respiratory failure with hypoxia J96.91 Admitted to intensive care unit Z78.9 Anemia D64.9
[2019-09-20] MEDS ORDERED: METOPROLOL TARTRATE 1 MG/ML VIAL IV PRN (08:58)
[2019-09-20] MEDS ORDERED: VANCOMYCIN TROUGH ONE (10:30)
[2019-09-20] MEDS: VANCOMYCIN HCL 1,250 MG in SODIUM CHLORIDE 0.9% 250 ML IV SCH (11:28)
[2019-09-20] MEDS: ERTAPENEM SODIUM 1,000 MG in SODIUM CHLORIDE 0.9% 50 ML IV SCH (11:28)
--- NOTE | 2019-09-20 12:47 | Hospitalist Progress Note ---
Date of Service September 20, 2019 Assessment & Plan (1) Respiratory failure with hypoxia: (2) Septic shock: September 16, patient's Mental status worsening and oxygen requirement increased Patient was given IV fluids on admission, concern for fluid overload Possibly patient may have aspirated History of ESBL Klebsiella pneumonia, And chronic sinusitis Started on Zosyn Initially Antibiotics then changed by ICU team after episode of acute hypoxic respiratory failure, currently on vancomycin and ertapenem given positive nasal MRSA swab and prior history of ESBL klebsiella pneumonia pna COVID negative Patient was intubated 7/ PM --> 7/3 AM Sputum culture obtained prior to this episode, positive for ESBL Klebsiella pneumonia (sensitive to imipenem and ertapenem), Day 3 of vancomycin and ertapenem, vancomycin DC'd today (09/20/19) as there was no gram-positive identified on cultures. Will likely require 10 to 14 days at least of ertapenem therapy given patient's immunocompromised state. Continue to trend leukocytosis. White blood cell count significantly elevated, procalcitonin also elevated CT chest showing dense consolidation of bilateral lower lobes Continue incentive spirometry and out of bed as tolerated. Wean oxygen as tolerated. Patient also required pressors after admission to ICU, now off vasopressors Plan to downgrade from ICU today, 09/19 New onset A. fib -Patient is now off vasopressors, and started by ICU team on metoprolol, continue metoprolol for now -Rate controlled -No anticoagulation started per ICU team, likely due to anemia and concern for GI bleed on admission -Concern for possible GI bleed, contraindicate anticoagulation -Continue to monitor (3) Hypoxia: Initially suspected due to anemia and underlying COPD - improved with oxygen, initially on admission. No known COVID exposure or sick contacts. COVID negative Hypoxia worsened morning after admission, possibly due to pulmonary congestion as patient received blood transfusion overnight, and IV fluids. Pt was using 3.5 L of O2 via nasal cannula Obtained chest x-ray and ABG, small dose of IV Lasix Patient has chronic sinusitis, several ENT surgeries in the past and 1 more planned in the near future. Sputum culture ordered as patient did have sputum production. Empiric antibiotic, Zosyn started. As above, patient's mental status worsened throughout the day, and oxygen requirement increased, requiring ICU consultation and transfer Mental status changes/encephalopathy -Possibly secondary to ongoing infection, hepatic encephalopathy, with ammonia level elevated, and combination of high-dose opioids, patient is on high dose of oxycodone in the outpatient setting -while in ICU, he was started on methadone by ICU team to prevent withdrawal -Currently mental status is much improved (7/4), patient is awake and answers most questions appropriately (4) GI bleed: Pt presented from [facility] with worsening of chronic anemia (Hgb 11.2 --> 7.4 since last month), heme positive stool, and ongoing N/V with hx of gastritis and esophageal varices (per chart although EGD earlier this year did not reveal varices) - Started on octreotide and Protonix gtts in the ED - Receiving one unit of PRBCs - follow H&H for stability post-transfusion -GI consulted Per GI: Hx of cirrhosis, recent EGD 2 month's ago w/o signs of varices, GAVE or portal HTN. 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 - DC Octreotide, PPI gtt. Continue him on Protonix 40mg BID - Deferring endoscopic eval at this time unless displaying hematemesis/coffee ground emesis/melena/hematochezia (5) JAMISON (acute kidney injury): Evidence of JAMISON with elevated BUN and creatinine compared to last labs - suspect component of dehydration Creatinine 1.54 on September 15 (admission) - Gentle IVF hydration provided on admission, fluids stopped next morning as he seemed to be fluid overloaded, and with evidence of pulmonary vascular congestion on x-ray, hypoxic, concern for increased pulmonary congestion -Creatinine normalized morning after admission to, 1.06, down from 1.54 on admission -Small dose of IV Lasix given to help with hypoxia/pulmonary congestion -Monitor renal function -renal function remains stable and normalized (6) Hypokalemia: - replete and monitor - Check magnesium and replete if needed (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 Being managed by a physician at [facility]. - Holding Imbruvica on admission- may need to discus with oncology pending clinical course -Per further review, seen by telehealth, Dr. Perdomo (recurrent MZL with nodular involvement of the stomach), on Imbruvica -Patient saw Dr. Dias at [facility]. Dr. Dias elected not to do a bone marrow biopsy at that time. 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 Mr. Akbar has a history of MALT lymphoma and may have bone marrow involvement. He has an M spike of 1.9 g/dL. Plan to follow-up with Dr. Disa in September 2019 -Plan to follow-up with [facility] oncology History of renal cell carcinoma, status post partial nephrectomy (8) Hypothyroidism: - Continue outpatient levothyroxine - Check TSH - was low in March (9) Neuropathy: - Continue gabapentin for neuropathic pain (10) HTN (hypertension): - carvedilol on hold now - HELD Bumex due to JAMISON on admission, continue to hold -Patient required vasopressors in ICU, now off vasopressors (11) CAD (coronary artery disease): - HOLD aspirin for now due to concern for GI blood loss - carvedilol on hold now - Holding Bumex and Imdur - Monitor on telemetry - EKG reviewed and without evidence of acute ischemia on admission - New onset of A. fib, currently on metoprolol for rate control (12) COPD (chronic obstructive pulmonary disease): - Holding outpatient inhaler for now - PRN DuoNebs if symptomatic (13) GERD (gastroesophageal reflux disease): - On PPI gtt -Current care per ICU team (14) Chronic sinusitis: Has seen ENT in the past - recent course of Augmentin, eventual surgery per pt. on admission, did not seem acutely worse, deferred antibiotics initially However patient became more hypoxic, clearly had sputum production, started empiric Zosyn. Sputum culture ordered. (15) Leukocytosis: Ongoing issues since fall - unclear if active infection at present. May be related to chronic sinusitis, ongoing prednisone use, underlying lymphoma. Continue to monitor. Sputum culture ordered Given hypoxia, and sputum production, empiric Zosyn started. Update: Patient had increased oxygen requirement, contacted by nursing staff that patient required 10 L, satting at 90%. Contacted ICU for further evaluation (09/17/2019 evening) Patient required ICU admission and was intubated and sedated. Currently patient is extubated. White blood cell count is currently significantly elevated, due to pneumonia, evidence of ESBL Klebsiella pneumonia and possible aspiration pneumonia Admission and Anticipated Discharge Date Admission Date: September 16, 2019 Subjective Patient was extubated yesterday, currently on 4 L of nasal cannula. He is off vasopressors. However now with new onset of A. fib. Patient is awake, sitting up in bed, eating lunch. Patient passed swallow evaluation. He is answering most questions appropriately. No fevers, chills, chest pain, chronic abdominal pain is well controlled at this time. Patient had significant productive cough with yellow/alves sputum production yesterday, seems to be improved now. Sputum culture positive for ESBL Klebsiella pneumonia Plan to downgrade from ICU. Review of Systems Review of Systems: All systems reviewed & are unremarkable except as noted in HPI & below Constitutional: no fever and no chills Respiratory: + cough and + dyspnea Cardiovascular: no chest pain and no palpitations Gastrointestinal: no abdominal pain, no nausea and no vomiting Physical Exam Physical Exam: Constitutional: Elderly thin male laying in bed, somnolent, on 4 L of O2 via nasal cannula Eyes: PERRL, conjunctivae normal, anicteric sclerae ENMT: Ears: no external ear abnormality Nose: no external nose abnormality Neck: Central line placed, R IJ Respiratory: + coarse breath sounds, on 4 L of O2 via nasal cannula Cardiovascular: Rate/Rhythm: Irregular rhythm, no murmur noted, Extremities: normal capillary refill and no LE edema b/l Gastrointestinal (Abdomen): + bowel sounds; abdomen not distended, soft Musculoskeletal: Head/Neck/Chest: normocephalic, head atraumatic, moves extremities spontaneously Skin: no rashes, warm and dry Neuro/ Psych: Awake, answers most questions appropriately, no facial asymmetry noted, moves extremities spontaneously Results & Data Results & Data ([facility]) Vital Signs (Past 12 Hours) Vital Signs Temp Pulse Pulse Resp BP Pulse Ox 09/20/19 11:01 81 20 97 09/20/19 11:00 86 20 108/73 96 09/20/19 10:30 85 21 97 09/20/19 10:01 82 29 H 96 09/20/19 10:00 84 35 H 99/62 L 96 09/20/19 09:30 110 H 25 H 84 L 09/20/19 09:08 108 H 23 119/74 97 09/20/19 09:06 125 H 110/64 09/20/19 09:00 142 H 24 09/20/19 08:30 114 H 23 93 09/20/19 08:25 124 H 32 H 90 09/20/19 08:24 120 H 18 124/79 94 09/20/19 08:00 36.8 C 102 H 23 90 09/20/19 07:00 94 H 31 H 88 L 09/20/19 06:14 36.8 C 09/20/19 06:01 86 26 H 89 L 09/20/19 06:00 101 H 32 H 94/63 L 88 L 09/20/19 05:30 89 16 91 09/20/19 05:01 88 15 92 09/20/19 05:00 92 H 15 104/58 L 90 09/20/19 04:30 96 H 19 89 L 09/20/19 04:01 93 H 24 90 09/20/19 04:00 89 32 H 105/62 89 L 09/20/19 03:30 92 H 14 96 09/20/19 03:17 93 H 20 89 L 09/20/19 03:01 123 H 19 116/78 89 L 09/20/19 03:00 101 H 23 87 L 09/20/19 02:30 88 28 H 88 L 09/20/19 02:09 37.0 C 09/20/19 02:01 89 22 89 L 09/20/19 02:00 88 25 H 108/68 93 09/20/19 01:30 90 14 86 L 09/20/19 01:01 96 H 35 H 133/74 89 L 09/20/19 01:00 116 H 21 74 L Laboratory Results 09/20/19 09/20/19 09/20/19 Range/Units 10:29 09:10 05:52 WBC (4.8-10.8) K/uL RBC (4.7-6.1) M/uL Hgb (14.0-18.0) g/dL Hct (42-52) % MCV (80-100) fL MCH (25-34) pg MCHC (32-36) g/dL RDW Std Deviation (36.4-46.3) fL RDW Coeff of Alin (11.5-14.5) % Plt Count (130-400) K/uL MPV (7.4-10.4) fL Immature Gran % (Auto) % Neut % (Auto) % Lymph % (Auto) % Barron % (Auto) % Eos % (Auto) % Baso % (Auto) % Neut # (Auto) (1.4-6.5) K/uL Lymph # (Auto) (1.2-3.4) K/uL Barron # (Auto) (0.11-0.59) K/uL Eos # (Auto) (0-0.5) K/uL Baso # (Auto) (0-0.2) K/uL Immature Gran # (Auto) (0.00-0.02) K/uL Absolute Nucleated RBC (0-0) K/uL Nucleated RBC % (auto) % Hypochromasia Target Cells PT (9.0-12.0) Seconds INR (0.9-1.1) Sodium (136-145) mmol/L Potassium (3.5-5.1) mmol/L Chloride (98-107) mmol/L Carbon Dioxide (21-32) mmol/L Anion Gap (3-11) BUN (7-18) mg/dl Creatinine (0.6-1.4) mg/dl Est Cr Clr Drug Dosing ml/min Est GFR ( Amer) Est GFR (Non-Af Amer) BUN/Creatinine Ratio (10-20) Glucose (70-99) mg/dl POC Glucose 77 80 (70-99) mg/dl Calcium (8.5-10.1) mg/dl Phosphorus (2.5-4.9) mg/dl Magnesium (1.8-2.4) mg/dl Total Bilirubin (0.2-1) mg/dl Direct Bilirubin (0-0.2) mg/dl AST (15-37) U/L ALT (12-78) U/L Alkaline Phosphatase (45-117) U/L Ammonia (11-32) umol/L Total Protein (6.4-8.2) gm/dl Albumin (3.4-5.0) gm/dl Vancomycin Trough 14.9 (See Comment) mcg/ml 09/20/19 09/20/19 09/20/19 Range/Units 04:14 04:10 04:10 WBC (4.8-10.8) K/uL RBC (4.7-6.1) M/uL Hgb (14.0-18.0) g/dL Hct (42-52) % MCV (80-100) fL MCH (25-34) pg MCHC (32-36) g/dL RDW Std Deviation (36.4-46.3) fL RDW Coeff of Alin (11.5-14.5) % Plt Count (130-400) K/uL MPV (7.4-10.4) fL Immature Gran % (Auto) % Neut % (Auto) % Lymph % (Auto) % Barron % (Auto) % Eos % (Auto) % Baso % (Auto) % Neut # (Auto) (1.4-6.5) K/uL Lymph # (Auto) (1.2-3.4) K/uL Barron # (Auto) (0.11-0.59) K/uL Eos # (Auto) (0-0.5) K/uL Baso # (Auto) (0-0.2) K/uL Immature Gran # (Auto) (0.00-0.02) K/uL Absolute Nucleated RBC (0-0) K/uL Nucleated RBC % (auto) % Hypochromasia Target Cells PT 12.1 H (9.0-12.0) Seconds INR 1.2 H (0.9-1.1) Sodium 141 (136-145) mmol/L Potassium 3.0 L D (3.5-5.1) mmol/L Chloride 114 H (98-107) mmol/L Carbon Dioxide 27 (21-32) mmol/L Anion Gap 0 L (3-11) BUN 14 (7-18) mg/dl Creatinine 0.72 (0.6-1.4) mg/dl Est Cr Clr Drug Dosing 106.0 ml/min Est GFR ( Amer) 111.9 Est GFR (Non-Af Amer) 96.5 BUN/Creatinine Ratio 19.9 (10-20) Glucose 54 L (70-99) mg/dl POC Glucose (70-99) mg/dl Calcium 8.0 L (8.5-10.1) mg/dl Phosphorus 1.3 L* (2.5-4.9) mg/dl Magnesium 1.8 (1.8-2.4) mg/dl Total Bilirubin 0.6 (0.2-1) mg/dl Direct Bilirubin 0.3 H (0-0.2) mg/dl AST 20 (15-37) U/L ALT 13 (12-78) U/L Alkaline Phosphatase 46 (45-117) U/L Ammonia 25.0 (11-32) umol/L Total Protein 5.7 L (6.4-8.2) gm/dl Albumin 1.4 L (3.4-5.0) gm/dl Vancomycin Trough (See Comment) mcg/ml 09/20/19 09/20/19 09/20/19 Range/Units 04:10 01:31 01:01 WBC 33.77 H* (4.8-10.8) K/uL RBC 3.44 L (4.7-6.1) M/uL Hgb 8.0 L (14.0-18.0) g/dL Hct 26.1 L (42-52) % MCV 75.9 L (80-100) fL MCH 23.3 L (25-34) pg MCHC 30.7 L (32-36) g/dL RDW Std Deviation 54.1 H (36.4-46.3) fL RDW Coeff of Alin 19.5 H (11.5-14.5) % Plt Count 235 (130-400) K/uL MPV 10.1 (7.4-10.4) fL Immature Gran % (Auto) 1.2 % Neut % (Auto) 73.8 % Lymph % (Auto) 12.7 % Barron % (Auto) 12.1 % Eos % (Auto) 0.1 % Baso % (Auto) 0.1 % Neut # (Auto) 24.94 H (1.4-6.5) K/uL Lymph # (Auto) 4.28 H (1.2-3.4) K/uL Barron # (Auto) 4.07 H (0.11-0.59) K/uL Eos # (Auto) 0.02 (0-0.5) K/uL Baso # (Auto) 0.05 (0-0.2) K/uL Immature Gran # (Auto) 0.41 H (0.00-0.02) K/uL Absolute Nucleated RBC 0.93 H (0-0) K/uL Nucleated RBC % (auto) 2.8 % Hypochromasia Present Target Cells 1+ PT (9.0-12.0) Seconds INR (0.9-1.1) Sodium (136-145) mmol/L Potassium (3.5-5.1) mmol/L Chloride (98-107) mmol/L Carbon Dioxide (21-32) mmol/L Anion Gap (3-11) BUN (7-18) mg/dl Creatinine (0.6-1.4) mg/dl Est Cr Clr Drug Dosing ml/min Est GFR ( Amer) Est GFR (Non-Af Amer) BUN/Creatinine Ratio (10-20) Glucose (70-99) mg/dl POC Glucose 101 H 63 L* (70-99) mg/dl Calcium (8.5-10.1) mg/dl Phosphorus (2.5-4.9) mg/dl Magnesium (1.8-2.4) mg/dl Total Bilirubin (0.2-1) mg/dl Direct Bilirubin (0-0.2) mg/dl AST (15-37) U/L ALT (12-78) U/L Alkaline Phosphatase (45-117) U/L Ammonia (11-32) umol/L Total Protein (6.4-8.2) gm/dl Albumin (3.4-5.0) gm/dl Vancomycin Trough (See Comment) mcg/ml 09/19/19 Range/Units 18:45 WBC (4.8-10.8) K/uL RBC (4.7-6.1) M/uL Hgb (14.0-18.0) g/dL Hct (42-52) % MCV (80-100) fL MCH (25-34) pg MCHC (32-36) g/dL RDW Std Deviation (36.4-46.3) fL RDW Coeff of Alin (11.5-14.5) % Plt Count (130-400) K/uL MPV (7.4-10.4) fL Immature Gran % (Auto) % Neut % (Auto) % Lymph % (Auto) % Barron % (Auto) % Eos % (Auto) % Baso % (Auto) % Neut # (Auto) (1.4-6.5) K/uL Lymph # (Auto) (1.2-3.4) K/uL Barron # (Auto) (0.11-0.59) K/uL Eos # (Auto) (0-0.5) K/uL Baso # (Auto) (0-0.2) K/uL Immature Gran # (Auto) (0.00-0.02) K/uL Absolute Nucleated RBC (0-0) K/uL Nucleated RBC % (auto) % Hypochromasia Target Cells PT (9.0-12.0) Seconds INR (0.9-1.1) Sodium (136-145) mmol/L Potassium (3.5-5.1) mmol/L Chloride (98-107) mmol/L Carbon Dioxide (21-32) mmol/L Anion Gap (3-11) BUN (7-18) mg/dl Creatinine (0.6-1.4) mg/dl Est Cr Clr Drug Dosing ml/min Est GFR ( Amer) Est GFR (Non-Af Amer) BUN/Creatinine Ratio (10-20) Glucose (70-99) mg/dl POC Glucose 73 (70-99) mg/dl Calcium (8.5-10.1) mg/dl Phosphorus (2.5-4.9) mg/dl Magnesium (1.8-2.4) mg/dl Total Bilirubin (0.2-1) mg/dl Direct Bilirubin (0-0.2) mg/dl AST (15-37) U/L ALT (12-78) U/L Alkaline Phosphatase (45-117) U/L Ammonia (11-32) umol/L Total Protein (6.4-8.2) gm/dl Albumin (3.4-5.0) gm/dl Vancomycin Trough (See Comment) mcg/ml (1) GI bleed GI bleed type/associated pathology: unspecified gastrointestinal hemorrhage type Qualified Code(s): K92.2 - Gastrointestinal hemorrhage, unspecified (2) Hypothyroidism Hypothyroidism type: unspecified Qualified Code(s): E03.9 - Hypothyroidism, unspecified (3) Leukocytosis Leukocytosis type: unspecified Qualified Code(s): D72.829 - Elevated white blood cell count, unspecified (4) COPD (chronic obstructive pulmonary disease) COPD type: unspecified COPD Qualified Code(s): J44.9 - Chronic obstructive pulmonary disease, unspecified (5) GERD (gastroesophageal reflux disease) Esophagitis presence: esophagitis presence not specified Qualified Code(s): K21.9 - Gastro-esophageal reflux disease without esophagitis (6) Chronic sinusitis Sinusitis location: unspecified location Qualified Code(s): J32.9 - Chronic sinusitis, unspecified
[2019-09-20 17:50] LABS: Creatinine Clr Calc Pharmacy 99.2 ml/min; Est GFR (African American) 108.8; Est GFR (Non-African American) 93.9; Magnesium 1.8 mg/dl (1.8-2.4); Potassium 3.3 mmol/L (3.5-5.1)
[2019-09-20 17:53] LABS: Phosphorus 2.7 mg/dl (2.5-4.9)
[2019-09-20] MEDS ORDERED: POTASSIUM CHLORIDE 20 MEQ/15 ML UDC PO STA (18:35)
[2019-09-20] MEDS: CARBOHYDRATES FOR HYPOGLYCEMIA PO PRN (18:35)
[2019-09-20] MEDS: MAGNESIUM OXIDE 400 MG TAB PO SCH (20:25)
[2019-09-21] MEDS ORDERED: XOPENEX/ATROVENT 1.25mg/0.5MG NEB COMBO NEB SCH (01:00)
[2019-09-21] MEDS: LEVALBUTEROL 1.25MG/0.5ML NEB INH SCH ×3 (01:19→12:59)
[2019-09-21] MEDS: IPRATROPIUM BROMIDE NEB SOLN 0.02% 2.5 ML VIAL INH SCH ×3 (01:19→12:59)
[2019-09-21 06:34] LABS: Hematocrit (blood only) 27.1 % (42-52); Hemoglobin 8.2 g/dL (14.0-18.0); Mean Corpuscular Hemoglobin 22.6 pg (25-34); Mean Corpuscular Hgb Conc 30.3 g/dL (32-36); Mean Corpuscular Volume 74.7 fL (80-100); Mean Platelet Volume 10.5 fL (7.4-10.4); Nucleated RBC # (auto) 0.71 K/uL (0-0); Nucleated RBC % (auto) 2.9 %; Platelet Count 246 K/uL (130-400); RDW Coefficient of Variation 19.7 % (11.5-14.5); RDW Standard Deviation 53.4 fL (36.4-46.3); Red Blood Count 3.63 M/uL (4.7-6.1); White Blood Count 24.08 K/uL (4.8-10.8)
[2019-09-21 07:02] LABS: BUN Creatinine Ratio 15.7 (10-20); Calcium 7.9 mg/dl (8.5-10.1); Creatinine Clr Calc Pharmacy 99.2 ml/min; Est GFR (African American) 108.8; Est GFR (Non-African American) 93.9; Magnesium 1.9 mg/dl (1.8-2.4); Potassium 3.6 mmol/L (3.5-5.1)
[2019-09-21 07:03] LABS: Phosphorus 2.3 mg/dl (2.5-4.9)
[2019-09-21] MEDS: LEVOTHYROXINE SODIUM 50 MCG TABLET PO SCH (07:09)
[2019-09-21] MEDS ORDERED: POTASSIUM PHOS 3 MMOL/1 ML INFUSION IV STA (07:09)
[2019-09-21] MEDS: LEVOTHYROXINE SODIUM 200 MCG TABLET PO SCH (07:09)
[2019-09-21] MEDS: METOPROLOL TARTRATE 25 MG TAB PO SCH ×3 (07:09→20:46)
--- NOTE | 2019-09-21 07:10 | Hospitalist Progress Note ---
Date of Service September 21, 2019 Assessment & Plan (1) Respiratory failure with hypoxia: (2) Septic shock: September 16, patient's Mental status worsening and oxygen requirement increased Patient was given IV fluids on admission, concern for fluid overload Possibly patient may have aspirated History of ESBL Klebsiella pneumonia, And chronic sinusitis Started on Zosyn Initially Antibiotics then changed by ICU team after episode of acute hypoxic respiratory failure, currently on vancomycin and ertapenem given positive nasal MRSA swab and prior history of ESBL klebsiella pneumonia pna COVID negative Patient was intubated 09/16 PM --> 7/3 AM Sputum culture obtained prior to this episode, positive for ESBL Klebsiella pneumonia (sensitive to imipenem and ertapenem), Day 3 of vancomycin and ertapenem, vancomycin DC'd today (09/20/19) as there was no gram-positive identified on cultures. Will likely require 10 to 14 days at least of ertapenem therapy given patient's immunocompromised state. Continue to trend leukocytosis. White blood cell count significantly elevated, procalcitonin also elevated CT chest showing dense consolidation of bilateral lower lobes Continue incentive spirometry and out of bed as tolerated. Wean oxygen as tolerated. Patient also required pressors after admission to ICU, now off vasopressors Downgraded from ICU, 09/19 New onset A. fib -Patient is now off vasopressors, and started by ICU team on metoprolol, continue metoprolol for now -Rate controlled -No anticoagulation started per ICU team, likely due to anemia and concern for GI bleed on admission -Concern for possible GI bleed, contraindicate anticoagulation -Continue to monitor -Converted to sinus rhythm September 19 PM, will obtain EKG 12-lead, to confirm (3) Hypoxia: Initially suspected due to anemia and underlying COPD - improved with oxygen, initially on admission. No known COVID exposure or sick contacts. COVID negative Hypoxia worsened morning after admission, possibly due to pulmonary congestion as patient received blood transfusion overnight, and IV fluids. Pt was using 3.5 L of O2 via nasal cannula Obtained chest x-ray and ABG, small dose of IV Lasix Patient has chronic sinusitis, several ENT surgeries in the past and 1 more planned in the near future. Sputum culture ordered as patient did have sputum production. Empiric antibiotic, Zosyn started. As above, patient's mental status worsened throughout the day, and oxygen requirement increased, requiring ICU consultation and transfer Mental status changes/encephalopathy -Possibly secondary to ongoing infection, hepatic encephalopathy, with ammonia level elevated, and combination of high-dose opioids, patient is on high dose of oxycodone in the outpatient setting -while in ICU, he was started on methadone by ICU team to prevent withdrawal -Currently mental status is much improved (7/4), patient is awake and answers most questions appropriately (4) GI bleed: Pt presented from [facility] with worsening of chronic anemia (Hgb 11.2 --> 7.4 since last month), heme positive stool, and ongoing N/V with hx of gastritis and esophageal varices (per chart although EGD earlier this year did not reveal varices) - Started on octreotide and Protonix gtts in the ED - Receiving one unit of PRBCs - follow H&H for stability post-transfusion -GI consulted Per GI: Hx of cirrhosis, recent EGD 2 month's ago w/o signs of varices, GAVE or portal HTN. 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 - DC Octreotide, PPI gtt. Continue him on Protonix 40mg BID - Deferring endoscopic eval at this time unless displaying hematemesis/coffee ground emesis/melena/hematochezia (5) JAMISON (acute kidney injury): Evidence of JAMISON with elevated BUN and creatinine compared to last labs - suspect component of dehydration Creatinine 1.54 on September 15 (admission) - Gentle IVF hydration provided on admission, fluids stopped next morning as he seemed to be fluid overloaded, and with evidence of pulmonary vascular congestion on x-ray, hypoxic, concern for increased pulmonary congestion -Creatinine normalized morning after admission to, 1.06, down from 1.54 on admission -Small dose of IV Lasix given to help with hypoxia/pulmonary congestion -Monitor renal function -renal function remains stable and normalized (6) Hypokalemia: - replete and monitor - Check magnesium and replete if needed (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 Being managed by a physician at [facility]. - Holding Imbruvica on admission- may need to discus with oncology pending clinical course -Per further review, seen by telehealth, Dr. Perdomo (recurrent MZL with nodular involvement of the stomach), on Imbruvica -Patient saw Dr. Dias at [facility]. Dr. Dias elected not to do a bone marrow biopsy at that time. 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 Mr. Akbar has a history of MALT lymphoma and may have bone marrow involvement. He has an M spike of 1.9 g/dL. Plan to follow-up with Dr. Dias in September 2019 -Plan to follow-up with [facility] oncology History of renal cell carcinoma, status post partial nephrectomy (8) Hypothyroidism: - Continue outpatient levothyroxine - Check TSH - was low in March (9) Neuropathy: - Continue gabapentin for neuropathic pain (10) HTN (hypertension): - carvedilol on hold now - HELD Bumex due to JAMISON on admission, continue to hold -Patient required vasopressors in ICU, now off vasopressors -Started on metoprolol, for A. fib, currently back to sinus, heart rate and blood pressure acceptable (11) CAD (coronary artery disease): - HOLD aspirin for now due to concern for GI blood loss - carvedilol on hold now - Holding Bumex and Imdur - Monitor on telemetry - EKG reviewed and without evidence of acute ischemia on admission - New onset of A. fib, currently on metoprolol for rate control - Converted back to sinus, continue metoprolol (12) COPD (chronic obstructive pulmonary disease): - Holding outpatient inhaler for now - PRN DuoNebs if symptomatic (13) GERD (gastroesophageal reflux disease): - On PPI gtt -Current care per ICU team (14) Chronic sinusitis: Has seen ENT in the past - recent course of Augmentin, eventual surgery per pt. on admission, did not seem acutely worse, deferred antibiotics initially However patient became more hypoxic, clearly had sputum production, started empiric Zosyn. Sputum culture ordered. (15) Leukocytosis: Ongoing issues since fall - unclear if active infection at present. May be related to chronic sinusitis, ongoing prednisone use, underlying lymphoma. Continue to monitor. Sputum culture ordered Given hypoxia, and sputum production, empiric Zosyn started. Update: Patient had increased oxygen requirement, contacted by nursing staff that patient required 10 L, satting at 90%. Contacted ICU for further evaluation (09/17/2019 evening) Patient required ICU admission and was intubated and sedated. Currently patient is extubated. WBC is currently significantly elevated, due to pneumonia, evidence of ESBL Klebsiella pneumonia and possible aspiration pneumonia Now WBC trending down Admission and Anticipated Discharge Date Admission Date: September 16, 2019 Subjective Patient was extubated, currently on 3 L of nasal cannula. He is off vasopressors. However with new onset of A. fib. Converted back to sinus rhythm September 16 PM, will confirm with twelve-lead EKG. Patient is awake, sitting up in bed, somnolent. He is answering most questions appropriately. No fevers, chills, chest pain, chronic abdominal pain is well controlled at this time. Patient had significant productive cough with yellow/alves sputum production, he seems to be coughing less and he is more somnolent today. Sputum culture positive for ESBL Klebsiella pneumonia Downgraded from ICU yesterday. Review of Systems Review of Systems: All systems reviewed & are unremarkable except as noted in HPI & below Constitutional: no fever and no chills Respiratory: no cough and no dyspnea Cardiovascular: + dyspnea; no chest pain Gastrointestinal: no abdominal pain, no nausea and no vomiting Physical Exam Physical Exam: Constitutional: Elderly thin male laying in bed, somnolent, on 3 L of O2 via nasal cannula Eyes: PERRL, conjunctivae normal, anicteric sclerae ENMT: Ears: no external ear abnormality Nose: no external nose abnormality Neck: Central line placed, R IJ Respiratory: + coarse breath sounds, on 3 L of O2 via nasal cannula Cardiovascular: Rate/Rhythm: RRR, no murmur noted, Extremities: normal capillary refill and no LE edema b/l Gastrointestinal (Abdomen): + bowel sounds; abdomen not distended, soft Musculoskeletal: Head/Neck/Chest: normocephalic, head atraumatic, moves extremities spontaneously Skin: no rashes, warm and dry Neuro/ Psych: Awake, answers most questions appropriately, no facial asymmetry noted, moves extremities spontaneously Results & Data Results & Data ([facility]) Vital Signs (Past 12 Hours) Vital Signs Temp Pulse Pulse Resp BP BP Pulse Ox 09/21/19 07:05 74 20 88 L 09/21/19 03:46 77 24 137/78 93 09/21/19 00:00 68 09/20/19 23:58 37.1 C 65 24 137/82 92 09/20/19 22:41 67 18 91 09/20/19 22:00 67 25 H 93 09/20/19 21:01 73 23 85 L 09/20/19 21:00 75 23 114/64 85 L 09/20/19 20:30 74 20 90 09/20/19 20:01 78 23 90 09/20/19 20:00 36.9 C 72 22 100/60 90 09/20/19 19:30 76 28 H 88 L 09/20/19 19:24 77 20 90 Laboratory Results 09/21/19 09/21/19 09/21/19 Range/Units 11:44 05:44 05:44 WBC 24.08 H (4.8-10.8) K/uL RBC 3.63 L (4.7-6.1) M/uL Hgb 8.2 L (14.0-18.0) g/dL Hct 27.1 L (42-52) % MCV 74.7 L (80-100) fL MCH 22.6 L (25-34) pg MCHC 30.3 L (32-36) g/dL RDW Std Deviation 53.4 H (36.4-46.3) fL RDW Coeff of Alin 19.7 H (11.5-14.5) % Plt Count 246 (130-400) K/uL MPV 10.5 H (7.4-10.4) fL Absolute Nucleated RBC 0.71 H (0-0) K/uL Nucleated RBC % (auto) 2.9 % Sodium 144 (136-145) mmol/L Potassium 3.6 (3.5-5.1) mmol/L Chloride 113 H (98-107) mmol/L Carbon Dioxide 25 (21-32) mmol/L Anion Gap 5.0 (3-11) BUN 12 (7-18) mg/dl Creatinine 0.77 (0.6-1.4) mg/dl Est Cr Clr Drug Dosing 99.2 ml/min Est GFR ( Amer) 108.8 Est GFR (Non-Af Amer) 93.9 BUN/Creatinine Ratio 15.7 (10-20) Glucose 63 L (70-99) mg/dl POC Glucose 75 (70-99) mg/dl Calcium 7.9 L (8.5-10.1) mg/dl Phosphorus 2.3 L (2.5-4.9) mg/dl Magnesium 1.9 (1.8-2.4) mg/dl 09/20/19 09/20/19 09/20/19 Range/Units 23:43 18:57 18:29 WBC (4.8-10.8) K/uL RBC (4.7-6.1) M/uL Hgb (14.0-18.0) g/dL Hct (42-52) % MCV (80-100) fL MCH (25-34) pg MCHC (32-36) g/dL RDW Std Deviation (36.4-46.3) fL RDW Coeff of Alin (11.5-14.5) % Plt Count (130-400) K/uL MPV (7.4-10.4) fL Absolute Nucleated RBC (0-0) K/uL Nucleated RBC % (auto) % Sodium (136-145) mmol/L Potassium (3.5-5.1) mmol/L Chloride (98-107) mmol/L Carbon Dioxide (21-32) mmol/L Anion Gap (3-11) BUN (7-18) mg/dl Creatinine (0.6-1.4) mg/dl Est Cr Clr Drug Dosing ml/min Est GFR ( Amer) Est GFR (Non-Af Amer) BUN/Creatinine Ratio (10-20) Glucose (70-99) mg/dl POC Glucose 80 86 60 L* (70-99) mg/dl Calcium (8.5-10.1) mg/dl Phosphorus (2.5-4.9) mg/dl Magnesium (1.8-2.4) mg/dl 09/20/19 Range/Units 17:08 WBC (4.8-10.8) K/uL RBC (4.7-6.1) M/uL Hgb (14.0-18.0) g/dL Hct (42-52) % MCV (80-100) fL MCH (25-34) pg MCHC (32-36) g/dL RDW Std Deviation (36.4-46.3) fL RDW Coeff of Alin (11.5-14.5) % Plt Count (130-400) K/uL MPV (7.4-10.4) fL Absolute Nucleated RBC (0-0) K/uL Nucleated RBC % (auto) % Sodium 143 (136-145) mmol/L Potassium 3.3 L (3.5-5.1) mmol/L Chloride 112 H (98-107) mmol/L Carbon Dioxide 25 (21-32) mmol/L Anion Gap 6.0 (3-11) BUN 13 (7-18) mg/dl Creatinine 0.77 (0.6-1.4) mg/dl Est Cr Clr Drug Dosing 99.2 ml/min Est GFR ( Amer) 108.8 Est GFR (Non-Af Amer) 93.9 BUN/Creatinine Ratio 17.0 (10-20) Glucose 58 L (70-99) mg/dl POC Glucose (70-99) mg/dl Calcium 8.0 L (8.5-10.1) mg/dl Phosphorus 2.7 D (2.5-4.9) mg/dl Magnesium 1.8 (1.8-2.4) mg/dl Medications Administered Current Inpatient Medications Acetaminophen (Tylenol) 650 mg PO Q4H PRN PRN Reason: Pain or Fever Stop: 10/16/19 16:21 Last Admin: 09/17/19 04:02 Dose: 650 mg Documented by: Albuterol (Duoneb) 3 ml NEB Q4H PRN PRN Reason: Shortness Of Breath Or Wheezing Stop: 10/16/19 23:50 Albuterol (Duoneb) 3 ml NEB Q4R KRISTIAN Stop: 10/21/19 18:59 Carvedilol (Coreg) 6.25 mg PO BID KRISTIAN Stop: 10/16/19 23:50 Last Admin: 09/18/19 08:48 Dose: Not Given Documented by: Dextrose (Dextrose 50%) 25 - 50 ml IV UD PRN; Protocol PRN Reason: Hypoglycemia Protocol Stop: 10/20/19 01:03 Last Admin: 09/20/19 05:11 Dose: 25 ml Documented by: Guaifenesin (Mucinex) 600 mg PO Q12 KRISTIAN Stop: 10/17/19 20:59 Last Admin: 09/18/19 08:48 Dose: Not Given Documented by: Heparin Sodium (Beef Lung) (Heparin Sod 10 Unit/Ml Flush) 5 ml FLUSH PRN PRN PRN Reason: Flush Stop: 10/19/19 22:48 Last Admin: 09/21/19 05:44 Dose: 5 ml Documented by: Pantoprazole Sodium 40 mg/ (Syringe) 10 mls @ 5 mls/min IV BID@0900,2100 KRISTIAN Stop: 10/18/19 10:29 Last Admin: 09/21/19 08:17 Dose: 5 mls/min Documented by: Ertapenem 1,000 mg/ Sodium (Chloride) 60 mls @ 100 mls/hr IV Q24H KRISTIAN Stop: 09/25/19 10:59 Last Infusion: 09/21/19 11:28 Dose: Infused Documented by: Sodium Chloride 77 meq/ (Dextrose) 1,030.8 mls @ 50 mls/hr IV .[id number] [facility] Stop: 10/20/19 06:29 Last Admin: 09/21/19 08:18 Dose: 50 mls/hr Documented by: Ipratropium [place] (Atrovent 0.02% 0.5mg/2.5ml) 0.5 mg INH Q6R [facility] Stop: 10/21/19 00:59 Last Admin: 09/21/19 12:59 Dose: 0.5 mg Documented by: Lactulose (Chronulac) 20 gm PO TID [facility] Stop: 10/17/19 00:14 Last Admin: 09/21/19 14:41 Dose: 20 gm Documented by: Levalbuterol HCl (Xopenex 1.25mg/0.5ml Neb) 1.25 mg INH Q6R KRISTIAN Stop: 10/21/19 00:59 Last Admin: 09/21/19 12:59 Dose: 1.25 mg Documented by: Levothyroxine Sodium (Synthroid) 200 mcg PO DAILYBB [facility] Stop: 10/17/19 06:29 Last Admin: 09/21/19 07:09 Dose: 200 mcg Documented by: Levothyroxine Sodium (Synthroid) 50 mcg PO DAILYBB [facility] Stop: 10/17/19 06:29 Last Admin: 09/21/19 07:09 Dose: 50 mcg Documented by: Magnesium Oxide (Mag-Ox) 400 mg PO BID KRISTIAN Stop: 10/20/19 20:59 Last Admin: 09/21/19 08:17 Dose: 400 mg Documented by: Methadone HCl (Dolophine) 10 mg PO BID [facility] Stop: 10/05/19 08:59 Last Admin: 09/21/19 08:17 Dose: 10 mg Documented by: Metoprolol Tartrate (Lopressor) 5 mg IV Q5M PRN PRN Reason: Tachycardia Last Admin: 09/20/19 09:06 Dose: 5 mg Documented by: Metoprolol Tartrate (Lopressor) 12.5 mg PO Q8 KRISTIAN Stop: 10/19/19 13:59 Last Admin: 09/21/19 14:41 Dose: 12.5 mg Documented by: Metoprolol Tartrate (Lopressor) 5 mg IV Q5M PRN PRN Reason: Tachycardia Miscellaneous (Carbohydrates For Hypoglycemia) 15 - 30 gm PO UD PRN PRN Reason: Hypoglycemia Protocol Stop: 10/20/19 01:03 Last Admin: 09/20/19 18:35 Dose: 15 gm Documented by: Ondansetron HCl (Zofran) 4 mg IV Q6H PRN PRN Reason: Nausea Stop: 10/16/19 16:21 Oxycodone HCl (Roxicodone Immediate Rel) 10 mg PO Q4H PRN PRN Reason: Pain Stop: 10/01/19 17:44 Oxycodone HCl (Roxicodone Immediate Rel) 10 mg PO Q6 PRN PRN Reason: Pain Stop: 10/03/19 09:00 Pantoprazole Sodium (Protonix) 40 mg PO BID [facility] Stop: 10/17/19 11:59 Last Admin: 09/18/19 08:48 Dose: Not Given Documented by: Polyethylene Glycol (Miralax Powder Packet) 17 gm PO DAILY KRISTIAN Stop: 10/18/19 08:59 Last Admin: 09/21/19 08:17 Dose: 17 gm Documented by: Sodium Chloride (Sodium Chlor 7% Neb Solution) 4 ml NEB BIDR [facility] Stop: 10/21/19 18:59 Sucralfate (Carafate) 1 gm PO BID [facility] Stop: 10/18/19 20:59 Last Admin: 09/21/19 08:17 Dose: 1 gm Documented by: Tamsulosin HCl (Flomax) 0.4 mg PO HS [facility] Stop: 10/16/19 23:50 Last Admin: 09/17/19 22:48 Dose: Not Given Documented by: (1) GI bleed GI bleed type/associated pathology: unspecified gastrointestinal hemorrhage type Qualified Code(s): K92.2 - Gastrointestinal hemorrhage, unspecified (2) Hypothyroidism Hypothyroidism type: unspecified Qualified Code(s): E03.9 - Hypothyroidism, unspecified (3) Leukocytosis Leukocytosis type: unspecified Qualified Code(s): D72.829 - Elevated white bl ood cell count, unspecified (4) COPD (chronic obstructive pulmonary disease) COPD type: unspecified COPD Qualified Code(s): J44.9 - Chronic obstructive pulmonary disease, unspecified (5) GERD (gastroesophageal reflux disease) Esophagitis presence: esophagitis presence not specified Qualified Code(s): K21.9 - Gastro-esophageal reflux disease without esophagitis (6) Chronic sinusitis Sinusitis location: unspecified location Qualified Code(s): J32.9 - Chronic sinusitis, unspecified
[2019-09-21] MEDS ORDERED: POTASSIUM PHOSPHATE 15 MMOL in SODIUM CHLORIDE 0.9% 250 ML IV ONE (07:30)
[2019-09-21] MEDS: POTASSIUM CHLORIDE 20 MEQ/15 ML UDC PO STA ×2 (08:16→09:10)
[2019-09-21] MEDS: METHADONE HCL 10 MG TAB PO SCH ×2 (08:17→20:46)
[2019-09-21] MEDS: SUCRALFATE 1 GM/10 ML UDC PO SCH ×2 (08:17→20:47)
[2019-09-21] MEDS: PANTOprazole 40 MG in SYRINGE 0 ML IV SCH ×2 (08:17→20:45)
[2019-09-21] MEDS: LACTULOSE SYRUP 20 GM/30 ML UDC PO SCH ×3 (08:17→20:47)
[2019-09-21] MEDS: POLYETHYLENE (MIRALAX) 17 GM PACK PO SCH (08:17)
[2019-09-21] MEDS: MAGNESIUM OXIDE 400 MG TAB PO SCH ×2 (08:17→20:46)
[2019-09-21] MEDS: SODI CHLOR 2.5MEQ/ML 14.6% 77 MEQ in DEXTROSE 10% 1,000 ML IV SCH (08:18)
[2019-09-21] MEDS ORDERED: POTASSIUM CHLORIDE 20 MEQ TABCR PO STA (09:13)
[2019-09-21] MEDS: ERTAPENEM SODIUM 1,000 MG in SODIUM CHLORIDE 0.9% 50 ML IV SCH (10:42)
[2019-09-21] MEDS ORDERED: LACTATED RINGER'S 1,000 ML IV SCH (18:30)
[2019-09-21] MEDS: ALBUT/IPRATROP 3MG/0.5MG NEB 3 ML VIAL NEB SCH ×2 (19:12→23:03)
[2019-09-21] MEDS: SODIUM CHLOR 7% 4 ML NEB NEB SCH (19:12)
[2019-09-21] MEDS: guaiFENesin 600 MG TABCR PO SCH (21:43)
[2019-09-22] MEDS: ALBUT/IPRATROP 3MG/0.5MG NEB 3 ML VIAL NEB SCH ×7 (02:38→21:58)
[2019-09-22] MEDS ORDERED: methylPREDNISolone 40 MG in SYRINGE 0 ML IV ONE (03:17)
[2019-09-22] MEDS ORDERED: POTASSIUM CHLORIDE PWD 20 MEQ PACK PO STA (03:21)
[2019-09-22] MEDS ORDERED: FUROSEMIDE 40 MG in SYRINGE 0 ML IV ONE (03:34)
--- NOTE | 2019-09-22 03:35 | Communication Note ---
Date of Service: September 22, 2019
[2019-09-22 05:22] LABS: Hematocrit (blood only) 29.7 % (42-52); Mean Corpuscular Hemoglobin 22.7 pg (25-34); Mean Corpuscular Hgb Conc 30.3 g/dL (32-36); Mean Corpuscular Volume 74.8 fL (80-100); Mean Platelet Volume 10.3 fL (7.4-10.4); Nucleated RBC # (auto) 1.03 K/uL (0-0); Nucleated RBC % (auto) 5.5 %; Platelet Count 243 K/uL (130-400); RDW Coefficient of Variation 19.9 % (11.5-14.5); Red Blood Count 3.97 M/uL (4.7-6.1)
[2019-09-22 05:38] LABS: Partial Thromboplastin Time 28.6 Seconds (21.0-31.0)
[2019-09-22] MEDS: MAGNESIUM SULFATE / D5W 1 GM/100 ML BAG IV SCH ×2 (05:51→07:42)
[2019-09-22] MEDS: LEVOTHYROXINE SODIUM 200 MCG TABLET PO SCH (05:58)
[2019-09-22] MEDS: LEVOTHYROXINE SODIUM 50 MCG TABLET PO SCH (05:58)
[2019-09-22] MEDS: METOPROLOL TARTRATE 25 MG TAB PO SCH ×3 (05:58→20:59)
[2019-09-22 06:04] LABS: BUN Creatinine Ratio 11.8 (10-20); Calcium 7.9 mg/dl (8.5-10.1); Creatinine Clr Calc Pharmacy 83.9 ml/min; Est GFR (African American) 100.7; Est GFR (Non-African American) 86.9; Magnesium 1.9 mg/dl (1.8-2.4); Phosphorus 2.6 mg/dl (2.5-4.9); Potassium 4.2 mmol/L (3.5-5.1)
[2019-09-22 06:06] LABS: Basophils # (auto) 0.13 K/uL (0-0.2); Basophils % (auto) 0.7 %; Eosinophils # (auto) 0.23 K/uL (0-0.5); Eosinophils % (auto) 1.2 %; Hypochromasia Present; Immature Granulocytes # (auto) 0.58 K/uL (0.00-0.02); Immature Granulocytes % (auto) 3.1 %; Lymphocytes # (auto) 3.05 K/uL (1.2-3.4); Lymphocytes % (auto) 16.2 %; Monocytes # (auto) 1.53 K/uL (0.11-0.59); Monocytes % (auto) 8.1 %; Neutrophils # (auto) 13.28 K/uL (1.4-6.5); Neutrophils % (auto) 70.7 %; Target Cells 1+
--- NOTE | 2019-09-22 07:11 | XRay Report ---
XR chest 1V portable CLINICAL HISTORY: sob dyspnea COMPARISON STUDY: 09/19/2019 FINDINGS: Interval extubation. Central catheter remains in superior vena cava. Progressive components of pulmonary edema versus congestive failure. IMPRESSION: 1. Interval extubation. 2. Progressive components of congestive failure ACT 112: Negative or not required by law. The above report was generated using voice recognition software. It may contain grammatical, syntax or spelling errors. Electronically signed by: Shay Copeland M.D. 09/22/2019 7:10 AM
[2019-09-22] MEDS: SODIUM CHLOR 7% 4 ML NEB NEB SCH ×2 (07:12→19:01)
--- NOTE | 2019-09-22 08:49 | Hospitalist Progress Note ---
Date of Service September 22, 2019 Assessment & Plan (1) GI bleed: Pt presented from [facility] with worsening of chronic anemia (Hgb 11.2 --> 7.4 since last month), heme positive stool, and ongoing N/V with hx of gastritis and esophageal varices (per chart although EGD earlier this year did not reveal varices) - Started on octreotide and Protonix gtts in the ED - Receiving one unit of PRBCs - follow H&H for stability post-transfusion -GI consulted Per GI: Hx of cirrhosis, recent EGD 2 month's ago w/o signs of varices, GAVE or portal HTN. 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 - DC Octreotide, PPI gtt. Continue him on Protonix 40mg BID - Deferring endoscopic eval at this time unless displaying hematemesis/coffee ground emesis/melena/hematochezia (2) JAMISON (acute kidney injury): Evidence of JAMISON with elevated BUN and creatinine compared to last labs - suspect component of dehydration Creatinine 1.54 on September 15 (admission) - Gentle IVF hydration provided on admission, fluids stopped next morning as he seemed to be fluid overloaded, and with evidence of pulmonary vascular congestion on x-ray, hypoxic, concern for increased pulmonary congestion -Creatinine normalized morning after admission to, 1.06, down from 1.54 on admission -Small dose of IV Lasix given to help with hypoxia/pulmonary congestion -Monitor renal function -renal function remains stable and normalized (3) Hypokalemia: - replete and monitor - Check magnesium and replete if needed (4) Hypoxia: Initially suspected due to anemia and underlying COPD - improved with oxygen, initially on admission. No known COVID exposure or sick contacts. COVID negative Hypoxia worsened morning after admission, possibly due to pulmonary congestion as patient received blood transfusion overnight, and IV fluids. Pt was using 3.5 L of O2 via nasal cannula Obtained chest x-ray and ABG, small dose of IV Lasix Patient has chronic sinusitis, several ENT surgeries in the past and 1 more planned in the near future. Sputum culture ordered as patient did have sputum production. Empiric antibiotic, Zosyn started. As above, patient's mental status worsened throughout the day on 09/16, and oxygen requirement increased, requiring ICU consultation and transfer Patient is currently extubated, on 3L of suppl. O2 via nasal cannula, on ertapenem, hypoxia now due to pneumonia Mental status changes/encephalopathy -Possibly secondary to ongoing infection, hepatic encephalopathy, with ammonia level elevated, and combination of high-dose opioids, patient is on high dose of oxycodone in the outpatient setting (d/t cancer pain) -while in ICU, he was started on methadone by ICU team to prevent withdrawal -Currently mental status is much improved (7/4), patient is awake and answers most questions appropriately -Lactulose provided, ammonia level decreased -Oxycodone 120 mg 3 times a day for past 3 yrs, switched to methadone in ICU, now will discuss with palliative medicine further pain management -Started MS Contin 100 mg every 6 hours (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 Being managed by a physician at [facility]. - Holding Imbruvica on admission- may need to discus with oncology pending clinical course -Per further review, seen by telehealth, Dr. Perdomo (recurrent MZL with nodular involvement of the stomach), on Imbruvica -Patient saw Dr. Dias at [facility] care [facility]. Dr. Dias elected not to do a bone marrow biopsy at that time. 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 Mr. Akbar has a history of MALT lymphoma and may have bone marrow involvement. He has an M spike of 1.9 g/dL. Plan to follow-up with Dr. Dias in September 2019 -Plan to follow-up with [facility] oncology History of renal cell carcinoma, status post partial nephrectomy (6) Hypothyroidism: - Continue outpatient levothyroxine - Check TSH - was low in March (7) Neuropathy: - Continue gabapentin for neuropathic pain (8) HTN (hypertension): - carvedilol on hold now - HELD Bumex due to JAMISON on admission, continue to hold -Patient required vasopressors in ICU, now off vasopressors -Started on metoprolol, for A. fib, currently back to sinus, heart rate and blood pressure acceptable (9) CAD (coronary artery disease): - HOLD aspirin for now due to concern for GI blood loss - carvedilol on hold now - Holding Bumex and Imdur - Monitor on telemetry - EKG reviewed and without evidence of acute ischemia on admission - New onset of A. fib, currently on metoprolol for rate control - Converted back to sinus, continue metoprolol (10) COPD (chronic obstructive pulmonary disease): - Holding outpatient inhaler for now - PRN DuoNebs if symptomatic (11) GERD (gastroesophageal reflux disease): - On PPI gtt -Current care per ICU team (12) Chronic sinusitis: Has seen ENT in the past - recent course of Augmentin, eventual surgery per pt. on admission, did not seem acutely worse, deferred antibiotics initially However patient became more hypoxic, clearly had sputum production, started empiric Zosyn. Sputum culture ordered. (13) Leukocytosis: On admission , ongoing issues since fall - unclear if active infection at present. May be related to chronic sinusitis, ongoing prednisone use, underlying lymphoma. Continue to monitor. Sputum culture ordered Given hypoxia, and sputum production, empiric Zosyn started. Patient had increased oxygen requirement on 7/ PM, and mental status worsened, patient required ICU admission and was intubated and sedated. Currently patient is extubated. WBC is currently significantly elevated, due to pneumonia, evidence of ESBL Klebsiella pneumonia and possible aspiration pneumonia Now WBC trending down Admission and Anticipated Discharge Date Admission Date: September 16, 2019 Subjective Overnight patient more short of breath, IV fluids stopped, IV Lasix given. Suctioning ordered This patient is more somnolent, especially after methadone dose, will decrease methadone. Methadone started in ICU, to prevent withdrawal, in residential, patient is on oxycodone 120 mg 3 times a day, for cancer pain. Will discuss with palliative medicine appropriate pain management. Currently sitting up in the bed, in no acute distress. He is alert and oriented and answers questions appropriately. He is complaining of abdominal pain due to cancer. Denies any chest pain or palpitations. Continues to be on 4 L of O2 via nasal cannula. Review of Systems Review of Systems: All systems reviewed & are unremarkable except as noted in HPI & below Constitutional: no fever and no chills Respiratory: + cough and + dyspnea Cardiovascular: no chest pain and no palpitations Gastrointestinal: no abdominal pain, no nausea and no vomiting Physical Exam Physical Exam: Constitutional: Elderly thin male laying in bed, somnolent, on 4 L of O2 via nasal cannula Eyes: PERRL, conjunctivae normal, anicteric sclerae ENMT: Ears: no external ear abnormality Nose: no external nose abnormality Neck: Central line placed, R IJ Respiratory: + rhonchi, on 4 L of O2 via nasal cannula, no accessory respiratory muscles use Cardiovascular: Rate/Rhythm: RRR, no murmur noted, Extremities: normal ca pillary refill and no LE edema b/l Gastrointestinal (Abdomen): + bowel sounds; abdomen not distended, soft, mild tender to palpation diffusely Musculoskeletal: Head/Neck/Chest: normocephalic, head atraumatic, moves extremities spontaneously Skin: no rashes, warm and dry Neuro/ Psych: Awake, answers questions appropriately, no facial asymmetry noted, speech fluent, moves extremities spontaneously Results & Data Results & Data ([facility]) Vital Signs (Past 12 Hours) Vital Signs Temp Pulse Pulse Resp BP Pulse Ox 09/22/19 07:26 37.0 C 64 16 132/73 93 09/22/19 07:12 67 17 94 09/22/19 03:09 58 L 16 94 09/22/19 03:03 37.3 C 60 20 145/89 H 96 09/21/19 23:04 59 L 18 94 09/21/19 22:54 36.7 C 60 18 131/76 93 09/21/19 22:46 57 L Laboratory Results 09/22/19 09/22/19 09/22/19 Range/Units 06:19 05:10 05:10 WBC (4.8-10.8) K/uL RBC (4.7-6.1) M/uL Hgb (14.0-18.0) g/dL Hct (42-52) % MCV (80-100) fL MCH (25-34) pg MCHC (32-36) g/dL RDW Std Deviation (36.4-46.3) fL RDW Coeff of Alin (11.5-14.5) % Plt Count (130-400) K/uL MPV (7.4-10.4) fL Immature Gran % (Auto) % Neut % (Auto) % Lymph % (Auto) % [place] % (Auto) % Eos % (Auto) % Baso % (Auto) % Neut # (Auto) (1.4-6.5) K/uL Lymph # (Auto) (1.2-3.4) K/uL [place] # (Auto) (0.11-0.59) K/uL Eos # (Auto) (0-0.5) K/uL Baso # (Auto) (0-0.2) K/uL Immature Gran # (Auto) (0.00-0.02) K/uL Absolute Nucleated RBC (0-0) K/uL Nucleated RBC % (auto) % Hypochromasia Target Cells APTT 28.6 (21.0-31.0) Seconds PTT Ratio 1.0 Sodium 142 (136-145) mmol/L Potassium 4.2 D (3.5-5.1) mmol/L Chloride 114 H (98-107) mmol/L Carbon Dioxide 26 (21-32) mmol/L Anion Gap 2.0 L (3-11) BUN 11 (7-18) mg/dl Creatinine 0.91 (0.6-1.4) mg/dl Est Cr Clr Drug Dosing 83.9 ml/min Est GFR ( Amer) 100.7 Est GFR (Non-Af Amer) 86.9 BUN/Creatinine Ratio 11.8 (10-20) Glucose 73 (70-99) mg/dl POC Glucose 97 (70-99) mg/dl Calcium 7.9 L (8.5-10.1) mg/dl Phosphorus 2.6 (2.5-4.9) mg/dl Magnesium 1.9 (1.8-2.4) mg/dl 09/22/19 09/21/19 09/21/19 Range/Units 05:10 23:53 17:46 WBC 18.80 H (4.8-10.8) K/uL RBC 3.97 L (4.7-6.1) M/uL Hgb 9.0 L (14.0-18.0) g/dL Hct 29.7 L (42-52) % MCV 74.8 L (80-100) fL MCH 22.7 L (25-34) pg MCHC 30.3 L (32-36) g/dL RDW Std Deviation 53.0 H (36.4-46.3) fL RDW Coeff of Alin 19.9 H (11.5-14.5) % Plt Count 243 (130-400) K/uL MPV 10.3 (7.4-10.4) fL Immature Gran % (Auto) 3.1 % Neut % (Auto) 70.7 % Lymph % (Auto) 16.2 % [place] % (Auto) 8.1 % Eos % (Auto) 1.2 % Baso % (Auto) 0.7 % Neut # (Auto) 13.28 H (1.4-6.5) K/uL Lymph # (Auto) 3.05 (1.2-3.4) K/uL [place] # (Auto) 1.53 H (0.11-0.59) K/uL Eos # (Auto) 0.23 (0-0.5) K/uL Baso # (Auto) 0.13 (0-0.2) K/uL Immature Gran # (Auto) 0.58 H (0.00-0.02) K/uL Absolute Nucleated RBC 1.03 H (0-0) K/uL Nucleated RBC % (auto) 5.5 % Hypochromasia Present Target Cells 1+ APTT (21.0-31.0) Seconds PTT Ratio Sodium (136-145) mmol/L Potassium (3.5-5.1) mmol/L Chloride (98-107) mmol/L Carbon Dioxide (21-32) mmol/L Anion Gap (3-11) BUN (7-18) mg/dl Creatinine (0.6-1.4) mg/dl Est Cr Clr Drug Dosing ml/min Est GFR ( Amer) Est GFR (Non-Af Amer) BUN/Creatinine Ratio (10-20) Glucose (70-99) mg/dl POC Glucose 89 102 H (70-99) mg/dl Calcium (8.5-10.1) mg/dl Phosphorus (2.5-4.9) mg/dl Magnesium (1.8-2.4) mg/dl 09/21/19 09/21/19 Range/Units 16:46 11:44 WBC (4.8-10.8) K/uL RBC (4.7-6.1) M/uL Hgb (14.0-18.0) g/dL Hct (42-52) % MCV (80-100) fL MCH (25-34) pg MCHC (32-36) g/dL RDW Std Deviation (36.4-46.3) fL RDW Coeff of Alin (11.5-14.5) % Plt Count (130-400) K/uL MPV (7.4-10.4) fL Immature Gran % (Auto) % Neut % (Auto) % Lymph % (Auto) % [place] % (Auto) % Eos % (Auto) % Baso % (Auto) % Neut # (Auto) (1.4-6.5) K/uL Lymph # (Auto) (1.2-3.4) K/uL [place] # (Auto) (0.11-0.59) K/uL Eos # (Auto) (0-0.5) K/uL Baso # (Auto) (0-0.2) K/uL Immature Gran # (Auto) (0.00-0.02) K/uL Absolute Nucleated RBC (0-0) K/uL Nucleated RBC % (auto) % Hypochromasia Target Cells APTT (21.0-31.0) Seconds PTT Ratio Sodium (136-145) mmol/L Potassium (3.5-5.1) mmol/L Chloride (98-107) mmol/L Carbon Dioxide (21-32) mmol/L Anion Gap (3-11) BUN (7-18) mg/dl Creatinine (0.6-1.4) mg/dl Est Cr Clr Drug Dosing ml/min Est GFR ( Amer) Est GFR (Non-Af Amer) BUN/Creatinine Ratio (10-20) Glucose (70-99) mg/dl POC Glucose 94 75 (70-99) mg/dl Calcium (8.5-10.1) mg/dl Phosphorus (2.5-4.9) mg/dl Magnesium (1.8-2.4) mg/dl Medications Administered Current Inpatient Medications Acetaminophen (Tylenol) 650 mg PO Q4H PRN PRN Reason: Pain or Fever Stop: 10/16/19 16:21 Last Admin: 09/17/19 04:02 Dose: 650 mg Documented by: Albuterol (Duoneb) 3 ml NEB Q4H PRN PRN Reason: Shortness Of Breath Or Wheezing Stop: 10/16/19 23:50 Albuterol (Duoneb) 3 ml NEB Q4R KRISTIAN Stop: 10/21/19 18:59 Last Admin: 09/22/19 07:12 Dose: 3 ml Documented by: Carvedilol (Coreg) 6.25 mg PO BID KRISTIAN Stop: 10/16/19 23:50 Last Admin: 09/18/19 08:48 Dose: Not Given Documented by: Dextrose (Dextrose 50%) 25 - 50 ml IV UD PRN; Protocol PRN Reason: Hypoglycemia Protocol Stop: 10/20/19 01:03 Last Admin: 09/20/19 05:11 Dose: 25 ml Documented by: Guaifenesin (Mucinex) 600 mg PO Q12 KRISTIAN Stop: 10/17/19 20:59 Last Admin: 09/21/19 21:43 Dose: 600 mg Documented by: Heparin Sodium (Beef Lung) (Heparin Sod 10 Unit/Ml Flush) 5 ml FLUSH PRN PRN PRN Reason: Flush Stop: 10/19/19 22:48 Last Admin: 09/22/19 05:10 Dose: 5 ml Documented by: Ertapenem 1,000 mg/ Sodium (Chloride) 60 mls @ 100 mls/hr IV Q24H KRISTIAN Stop: 09/25/19 10:59 Last Infusion: 09/21/19 11:28 Dose: Infused Documented by: Lactulose (Chronulac) 20 gm PO TID KRISTIAN Stop: 10/17/19 00:14 Last Admin: 09/21/19 20:47 Dose: 20 gm Documented by: Levothyroxine Sodium (Synthroid) 200 mcg PO DAILYBB KRISTIAN Stop: 10/17/19 06:29 Last Admin: 09/22/19 05:58 Dose: 200 mcg Documented by: Levothyroxine Sodium (Synthroid) 50 mcg PO DAILYBB KRISTIAN Stop: 10/17/19 06:29 Last Admin: 09/22/19 05:58 Dose: 50 mcg Documented by: Magnesium Oxide (Mag-Ox) 400 mg PO BID KRISTIAN Stop: 10/20/19 20:59 Last Admin: 09/21/19 20:46 Dose: 400 mg Documented by: Methadone HCl (Dolophine) 5 mg PO BID REPLACED BY [facility] Stop: 10/06/19 08:59 Metoprolol Tartrate (Lopressor) 5 mg IV Q5M PRN PRN Reason: Tachycardia Last Admin: 09/20/19 09:06 Dose: 5 mg Documented by: Metoprolol Tartrate (Lopressor) 12.5 mg PO Q8 KRISTIAN Stop: 10/19/19 13:59 Last Admin: 09/22/19 05:58 Dose: 12.5 mg Documented by: Metoprolol Tartrate (Lopressor) 5 mg IV Q5M PRN PRN Reason: Tachycardia Miscellaneous (Carbohydrates For Hypoglycemia) 15 - 30 gm PO UD PRN PRN Reason: Hypoglycemia Protocol Stop: 10/20/19 01:03 Last Admin: 09/20/19 18:35 Dose: 15 gm Documented by: Ondansetron HCl (Zofran) 4 mg IV Q6H PRN PRN Reason: Nausea Stop: 10/16/19 16:21 Oxycodone HCl (Roxicodone Immediate Rel) 10 mg PO Q4H PRN PRN Reason: Pain Stop: 10/01/19 17:44 Oxycodone HCl (Roxicodone Immediate Rel) 10 mg PO Q6 PRN PRN Reason: Pain Stop: 10/03/19 09:00 Pantoprazole Sodium (Protonix) 40 mg PO BID KRISTIAN Stop: 10/17/19 11:59 Last Admin: 09/18/19 08:48 Dose: Not Given Documented by: Polyethylene Glycol (Miralax Powder Packet) 17 gm PO DAILY KRISTIAN Stop: 10/18/19 08:59 Last Admin: 09/21/19 08:17 Dose: 17 gm Documented by: Sodium Chloride (Sodium Chlor 7% Neb Solution) 4 ml NEB BIDR KRISTIAN Stop: 10/21/19 18:59 Last Admin: 09/22/19 07:12 Dose: 4 ml Documented by: Sucralfate (Carafate) 1 gm PO BID KRISTIAN Stop: 10/18/19 20:59 Last Admin: 09/21/19 20:47 Dose: 1 gm Documented by: Tamsulosin HCl (Flomax) 0.4 mg PO HS REPLACED BY [facility] Stop: 10/16/19 23:50 Last Admin: 09/17/19 22:48 Dose: Not Given Documented by: (1) GI bleed GI bleed type/associated pathology: unspecified gastrointestinal hemorrhage type Qualified Code(s): K92.2 - Gastrointestinal hemorrhage, unspecified (2) Hypothyroidism Hypothyroidism type: unspecified Qualified Code(s): E03.9 - Hypothyroidism, unspecified (3) Leukocytosis Leukocytosis type: unspecified Qualified Code(s): D72.829 - Elevated white blood cell count, unspecified (4) COPD (chronic obstructive pulmonary disease) COPD type: unspecified COPD Qualified Code(s): J44.9 - Chronic obstructive pulmonary disease, unspecified (5) GERD (gastroesophageal reflux disease) Esophagitis presence: esophagitis presence not specified Qualified Code(s): K21.9 - Gastro-esophageal reflux disease without esophagitis (6) Chronic sinusitis Sinusitis location: unspecified location Qualified Code(s): J32.9 - Chronic sinusitis, unspecified
[2019-09-22] MEDS ORDERED: METHADONE HCL 5 MG TAB PO SCH (09:00)
[2019-09-22] MEDS: SUCRALFATE 1 GM/10 ML UDC PO SCH ×2 (09:21→20:57)
[2019-09-22] MEDS: LACTULOSE SYRUP 20 GM/30 ML UDC PO SCH ×3 (09:21→20:59)
[2019-09-22] MEDS: MAGNESIUM OXIDE 400 MG TAB PO SCH ×2 (09:22→20:57)
[2019-09-22] MEDS: guaiFENesin 600 MG TABCR PO SCH ×2 (09:23→20:57)
[2019-09-22] MEDS: POLYETHYLENE (MIRALAX) 17 GM PACK PO SCH (09:28)
[2019-09-22] MEDS: PANTOprazole 40 MG TAB PO SCH ×2 (09:45→20:57)
[2019-09-22] MEDS: ERTAPENEM SODIUM 1,000 MG in SODIUM CHLORIDE 0.9% 50 ML IV SCH (11:41)
--- NOTE | 2019-09-22 13:41 | Palliative Care Consultation ---
Date of Consultation September 22, 2019 Assessment & Plan (1) Cancer related pain: Briefly the patient is a 69-year-old incarcerated male who presented to the hospital on 09/15 with nausea vomiting and anemia. Patient's hemoglobin was 7.4-a drop from 11.2 a month prior, has a history of MALT of the stomach. Patient went into acute respiratory distress requiring intubation on 09/16 along with pressors. Patient was extubated and transferred to the floor. Patient is currently on O2 at 4 L nasal cannula. Past medical history significant for cirrhosis, history of renal cell CA status post nephrectomy, hypertension, HLD, CAD, PVD, hypothyroidism, chronic sinusitis-status post surgery x2 and COPD. Asked to assist with narcotic pain medications. Patient's ammonia level was elevated at 69-repeat today was 25-this may have contributed to his altered mental status. Of note his albumin is 1.4, his TSH was low at 0.064. Patient was transfused for hemoglobin of 7.4, patient's hemoglobin is 9.0 on labs drawn today. -Patient was taking OxyContin 120 mg 3 times a day for the past 3 years. In the ICU he was started on methadone 10 mg twice daily-patient became minimally responsive-likely due to the potentiation of other sedating medications he received while in the ICU. Methadone dose was decreased to 5 mg twice daily. -Of note patient had A. fib with RVR-his QTc on admission was 429-increased to 457 and was 495 on his latest EKG. With his prolonged QTc after 2 doses of methadone-this is not a good choice of medication for him. -Discussed with patient at length regarding his pain, he appears comfortable. Discussed opioid rotation-patient in agreement. In calculating his oral mo rphine equivalent-it would be 540 mg of morphine daily which is equivalent to his 120 mg 3 times a day of oxycodone. With opioid rotation dose can be decreased by 25% which gives us approximately 400 mg daily of morphine. Will start MS Contin at 100 mg 4 times daily-this regime can be simplified to twice a day or 3 times a day dosing when discharged. -Patient states he has frequent nausea which he feels is due to his Imbruvica, which she has been on over the past 3 months since he was first diagnosed with MALT. Review of patient's prior weight-patient's weight was 150 pounds in February 2019, his weight on admission was 175. Given his weight, I am assuming that his nausea is not interfering with his eating. Patient was actually finishing his lunch during my exam. -Reviewed calculations with attending physician, will start MS Gamal at 100 mg 4 times daily, continue PRN oxycodone for now, patient getting a repeat EKG today. -Collaborated with attending physician -Will continue to follow and adjust pain medications as needed. 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 Will discontinue methadone (5) Anemia: History of Present Illness Reason for Consultation: Assist with pain management Requesting Physician: Dr Potts Attending Physician: Rian Potts MD History of Present Illness Briefly the patient is a 69-year-old incarcerated male who presented to the hospital on 09/15 with nausea vomiting and anemia. Patient's hemoglobin was 7.4- a drop from 11.2 a month prior, has a history of MALT of the stomach. Patient went into acute respiratory distress requiring intubation on 09/16 along with pressors. Patient was extubated and transferred to the floor. Patient is currently on O2 at 4 L nasal cannula. Past medical history significant for cirrhosis, history of renal cell CA status post nephrectomy, hypertension, HLD, CAD, PVD, hypothyroidism, chronic sinusitis-status post surgery x2 and COPD. Asked to assist with narcotic pain medications. Patient's ammonia level was elevated at 69-repeat today was 25-this may have contributed to his altered mental status. Of note his albumin is 1.4, his TSH was low at 0.064. Patient was transfused for hemoglobin of 7.4, patient's hemoglobin is 9.0 on labs drawn today. -Patient was taking OxyContin 120 mg 3 times a day for the past 3 years. In the ICU he was started on methadone 10 mg twice daily-patient became minimally responsive-likely due to the potentiation of other sedating medications he received while in the ICU. Methadone dose was decreased to 5 mg twice daily. -Of note patient had A. fib with RVR-his QTc on admission was 429-increased to 457 and was 495 on his latest EKG. With his prolonged QTc after 2 doses of methadone-this is not a good choice of medication for him. Allergies Allergy/AdvReac Type Severity Reaction Status Date / Time lisinopril Allergy Severe UNKNOWN Verified 09/16/19 13:57 YONNY Inhibitors Allergy Intermediate LIPS SWELL Verified 09/16/19 13:57 Cipro Allergy Mild PER RECORD Verified 09/19/17 13:41 ciprofloxacin Allergy Mild Mild rash Verified 09/16/19 13:57 Home Medications Home Medications Medication Instructions Recorded Confirmed Type isosorbide mononitrate 30 mg PO QAM 03/07/18 09/16/19 History sucralfate 1 g PO TID 03/07/18 09/16/19 History tamsulosin 0.4 mg PO HS 03/07/18 09/16/19 History levothyroxine 200 mcg PO QAM 10/16/18 09/16/19 History pantoprazole 40 mg PO DAILY 02/01/19 09/16/19 History aspirin 81 mg PO DAILY 03/07/19 09/16/19 History bumetanide 2 mg PO DAILY 03/07/19 09/16/19 History gabapentin 800 mg PO TID 03/07/19 09/16/19 History lactulose 30 ml PO TID 03/07/19 09/16/19 History levothyroxine 50 mcg PO QAM 03/07/19 09/16/19 History oxycodone 120 mg PO TID 03/08/19 09/16/19 History ciclesonide [Alvesco] 1 puff INHALATION BID 05/08/19 09/16/19 History guaifenesin [Mucosa] 1,200 mg PO BID 05/08/19 09/16/19 History mirtazapine 45 mg PO HS 05/08/19 09/16/19 History aluminum hydrox-magnesium carb 30 ml PO QID 08/07/19 09/16/19 History [Gaviscon] docusate sodium 100 mg PO BID 08/07/19 09/16/19 History ibrutinib [Imbruvica] 420 mg PO DAILY 08/07/19 09/16/19 History potassium chloride 40 meq PO TID 08/07/19 09/16/19 History promethazine 25 mg PO QID PRN 08/07/19 09/16/19 History vitamin E 1 applic TOPICAL BID 08/07/19 09/16/19 History carvedilol [Coreg] 6.25 mg PO BID 09/16/19 09/16/19 History dicyclomine 20 mg PO TID 09/16/19 09/16/19 History diphenhydramine HCl 25 mg PO HS 09/16/19 09/16/19 History ketorolac 30 mg IM TID 09/16/19 09/16/19 History levalbuterol tartrate [Xopenex HFA] 2 inh INHALATION QID 09/16/19 09/16/19 History menthol [Blue Gel] 1 applic TOPICAL TID PRN 09/16/19 09/16/19 History methocarbamol [Robaxin-750] 750 mg PO BID 09/16/19 09/16/19 History Patient History Medical History Anemia (Chronic) CAD (coronary artery disease) (Chronic) Cholelithiasis without cholecystitis Chronic pain Chronic sinusitis (Chronic) 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 COPD (chronic obstructive pulmonary disease) (Chronic) Esophageal varices (Chronic) 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) GERD (gastroesophageal reflux disease) (Chronic) HLD (hyperlipidemia) (Chronic) HTN (hypertension) (Chronic) Hypothyroidism (Chronic) Malignant neoplasm of kidney (Chronic) Left side- s/p partial nephrectomy Neuropathy (Chronic) Portal hypertension (Chronic) PVD (peripheral vascular disease) (Chronic) Surgical History History of appendectomy (Chronic) History of partial nephrectomy (Chronic) History of splenectomy (Chronic) Hx of colonoscopy Family History Mother Hypothyroidism Father Myocardial infarction Social History Preferred Language: [place] Communication Ability: Effective Miner Pick Required: No Beliefs That Will Affect Care: None Current Living Situation: Other Current Living Situation Comment: residential current occupational status: unemployed Feels Safe at Home: Yes Smoking Status: Former smoker Tobacco Type: cigarettes ; Cigarettes Per Day: 12 ; Second Hand Exposure: Yes ; Hx Alcohol Use: No Hx Substance Use: No Review of Systems Review of Systems: Patient denies fever, chills, chest pain, shortness of breath Positive for abdominal pain. Physical Exam Physical Exam: PE: Patient awake and alert, NAD. Not sedated or drowsy. HEENT: EOMI, hearing within normal limits Respirations: Clear breath sounds bilaterally CV: Regular rate Abdomen: Distended, mild tenderness with light palpation on exam, positive bowel sounds Extremities: Full range of motion Neuro: Alert and oriented Results & Data Vital Signs (Past 12 Hours) Vital Signs Temp Pulse Pulse Resp BP Pulse Ox 09/22/19 11:30 98.1 F 71 16 123/72 91 09/22/19 11:19 74 18 86 L 09/22/19 08:00 61 09/22/19 07:26 98.6 F 64 16 132/73 93 09/22/19 07:12 67 17 94 09/22/19 03:09 58 L 16 94 09/22/19 03:03 99.1 F 60 20 145/89 H 96 last bowel movement was documented on 09/19, admission x-ray showed large stool burden. PG Care Time/CCT Total # of Minutes Spent Total Time Spent with Patient: Total time spent 70 minutes with greater than 50% of the time spent at bedside on 2 separate visits developing a plan to control his cancer related pain. 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
[2019-09-22] MEDS: MoRPHine SULFATE CR 100 MG TABCR PO SCH ×3 (15:05→23:50)
[2019-09-23] MEDS: ALBUT/IPRATROP 3MG/0.5MG NEB 3 ML VIAL NEB SCH ×6 (02:52→22:57)
[2019-09-23] MEDS: MoRPHine SULFATE CR 100 MG TABCR PO SCH ×4 (06:01→23:38)
[2019-09-23] MEDS: METOPROLOL TARTRATE 25 MG TAB PO SCH ×3 (06:01→21:11)
[2019-09-23] MEDS: LEVOTHYROXINE SODIUM 50 MCG TABLET PO SCH (06:01)
[2019-09-23] MEDS: LEVOTHYROXINE SODIUM 200 MCG TABLET PO SCH (06:02)
--- NOTE | 2019-09-23 06:29 | Electrocardiogram Report ---
Test Reason : Blood Pressure : / mmHG Vent. Rate : 074 BPM Atrial Rate : 074 BPM P-R Int : 138 ms QRS Dur : 072 ms QT Int : 382 ms P-R-T Axes : 045 019 -09 degrees QTc Int : 424 ms Normal sinus rhythm Normal ECG When compared with ECG of 19-SEP-2019 03:52, Sinus rhythm has replaced Atrial fibrillation Vent. rate has decreased BY 52 BPM Criteria for Septal infarct are no longer Present ST no longer depressed in Lateral leads Confirmed by Chris Balderas ([id number]) on 09/23/2019 6:29:04 AM Referred By: REFERRED SELF Confirmed By:Chris Balderas
[2019-09-23] MEDS: SODIUM CHLOR 7% 4 ML NEB NEB SCH (07:26)
[2019-09-23] MEDS: LACTULOSE SYRUP 20 GM/30 ML UDC PO SCH ×3 (07:57→21:09)
[2019-09-23] MEDS: SUCRALFATE 1 GM/10 ML UDC PO SCH ×2 (07:57→21:12)
[2019-09-23] MEDS: POLYETHYLENE (MIRALAX) 17 GM PACK PO SCH (07:57)
--- NOTE | 2019-09-23 08:18 | Hospitalist Progress Note ---
Date of Service September 23, 2019 Assessment & Plan (1) GI bleed: Pt presented from [facility] with worsening of chronic anemia (Hgb 11.2 --> 7.4 since last month), heme positive stool, and ongoing N/V with hx of gastritis and esophageal varices (per chart although EGD earlier this year did not reveal varices) - Started on octreotide and Protonix gtts in the ED - Receiving one unit of PRBCs - follow H&H for stability post-transfusion -GI consulted Per GI: Hx of cirrhosis, recent EGD 2 month's ago w/o signs of varices, GAVE or portal HTN. 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 - DC Octreotide, PPI gtt. Continue him on Protonix 40mg BID - Deferring endoscopic eval at this time unless displaying hematemesis/coffee ground emesis/melena/hematochezia (2) JAMISON (acute kidney injury): Evidence of JAMISON with elevated BUN and creatinine compared to last labs - suspect component of dehydration Creatinine 1.54 on September 15 (admission) - Gentle IVF hydration provided on admission, fluids stopped next morning as he seemed to be fluid overloaded, and with evidence of pulmonary vascular congestion on x-ray, hypoxic, concern for increased pulmonary congestion -Creatinine normalized morning after admission to, 1.06, down from 1.54 on admission -Small dose of IV Lasix given to help with hypoxia/pulmonary congestion -Monitor renal function -renal function remains stable and normalized (3) Hypokalemia: - replete and monitor - Check magnesium and replete if needed (4) Hypoxia: Initially suspected due to anemia and underlying COPD - improved with oxygen, initially on admission. No known COVID exposure or sick contacts. COVID negative Hypoxia worsened morning after admission, possibly due to pulmonary congestion as patient received blood transfusion overnight, and IV fluids. Pt was using 3.5 L of O2 via nasal cannula Obtained chest x-ray and ABG, small dose of IV Lasix Patient has chronic sinusitis, several ENT surgeries in the past and 1 more planned in the near future. Sputum culture ordered as patient did have sputum production. Empiric antibiotic, Zosyn started. As above, patient's mental status worsened throughout the day on 09/16, and oxygen requirement increased, requiring ICU consultation and transfer Patient is currently extubated, on 3-4L of suppl. O2 via nasal cannula, on ertapenem, hypoxia now due to pneumonia Mental status changes/encephalopathy -Possibly secondary to ongoing infection, hepatic encephalopathy, with ammonia level elevated, and combination of high-dose opioids, patient is on high dose of oxycodone in the outpatient setting (d/t cancer pain) -while in ICU, he was started on methadone by ICU team to prevent withdrawal -Currently mental status is much improved (09/19), patient is awake and answers most questions appropriately -Lactulose provided, ammonia level decreased -Oxycodone 120 mg 3 times a day for past 3 yrs, switched to methadone in ICU, now will discuss with palliative medicine further pain management -Started MS Contin 100 mg every 6 hours -We will hold MS Contin due to somnolence plan to resume in the evening (09/22) or tomorrow (09/23) (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 Being managed by a physician at [facility]. - Holding Imbruvica on admission- may need to discus with oncology pending clinical course -Per further review, seen by telehealth, Dr. Perdomo (recurrent MZL with nodular involvement of the stomach), on Imbruvica -Patient saw Dr. Dias at [facility]. Dr. Dias elected not to do a bone marrow biopsy at that time. 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 Mr. Akbar has a history of MALT lymphoma and may have bone marrow involvement. He has an M spike of 1.9 g/dL. Plan to follow-up with Dr. Dias in September 2019 -Plan to follow-up with [facility] oncology History of renal cell carcinoma, status post partial nephrectomy (6) Hypothyroidism: - Continue outpatient levothyroxine - Check TSH - was low in March (7) Neuropathy: - Continue gabapentin for neuropathic pain (8) HTN (hypertension): - carvedilol on hold now - HELD Bumex due to JAMISON on admission, continue to hold -Patient required vasopressors in ICU, now off vasopressors -Started on metoprolol, for A. fib, currently back to sinus, heart rate and blood pressure acceptable (9) CAD (coronary artery disease): - HOLD aspirin for now due to concern for GI blood loss - carvedilol on hold now - Holding Bumex and Imdur - Monitor on telemetry - EKG reviewed and without evidence of acute ischemia on admission - New onset of A. fib, currently on metoprolol for rate control - Converted back to sinus, continue metoprolol (10) COPD (chronic obstructive pulmonary disease): - Holding outpatient inhaler for now - PRN DuoNebs if symptomatic (11) GERD (gastroesophageal reflux disease): - On PPI gtt -Current care per ICU team (12) Chronic sinusitis: Has seen ENT in the past - recent course of Augmentin, history of ENT surgery x2 (13) Leukocytosis: On admission , ongoing issues since fall - unclear if active infection at present. May be related to chronic sinusitis, ongoing prednisone use, underlying lymphoma. Continue to monitor. Sputum culture ordered Given hypoxia, and sputum production, empiric Zosyn started. Patient had increased oxygen requirement on 7/ PM, and mental status worsened, patient required ICU admission and was intubated and sedated. Currently patient is extubated. WBC is currently significantly elevated, due to pneumonia, evidence of ESBL Klebsiella pneumonia and possible aspiration pneumonia Now WBC trending down Admission and Anticipated Discharge Date Admission Date: September 16, 2019 Subjective Notified by nursing staff, the patient has been more somnolent and, oxygen requirement now up with oxygen mask. Patient is lying in bed, in no acute distress, he is somnolent but easily arousable and answers questions appropriately. Discussed holding his MS Contin dose at noon. Denies fevers, chills, chest pain. Chronic abdominal pain is currently well controlled. Patient does not necessarily feel short of breath and keeps pulling his oxygen mask off. Review of Systems Review of Systems: All systems reviewed & are unremarkable except as noted in HPI & below Constitutional: no fever and no chills Respiratory: + cough and + dyspnea Cardiovascular: no chest pain and no palpitations Gastrointestinal: no abdominal pain, no nausea and no vomiting Physical Exam Physical Exam: Constitutional: Elderly thin male laying in bed, somnolent, on 5 L of O2 via oximask Eyes: PERRL, conjunctivae normal, anicteric sclerae ENMT: Ears: no external ear abnormality Nose: no external nose abnormality Neck: Central line placed, R IJ Respiratory: + rhonchi, no accessory respiratory muscles use Cardiovascular: Rate/Rhythm: RRR, no murmur noted, Extremities: normal capillary refill and no LE edema b/l Gastrointestinal (Abdomen): + bowel sounds; abdomen not distended, soft, mild tender to palpation diffusely Musculoskeletal: Head/Neck/Chest: normocephalic, head atraumatic, moves extremities spontaneously Skin: no rashes, warm and dry Neuro/ Psych: Awake, answers questions appropriately, no facial asymmetry noted, speech fluent, moves extremities spontaneously Results & Data Results & Data ([facility]) Vital Signs (Past 12 Hours) Vital Signs Temp Pulse Pulse Resp BP Pulse Ox 09/23/19 07:28 63 18 91 09/23/19 07:21 36.4 C L 64 16 125/82 92 09/23/19 06:02 65 139/85 09/23/19 03:24 36.4 C L 62 20 124/81 90 09/23/19 00:02 63 09/22/19 23:00 36.6 C 66 18 127/77 95 09/22/19 21:58 63 18 81 L 09/22/19 20:58 68 148/83 H Laboratory Results 09/23/19 09/23/19 09/23/19 Range/Units 16:37 11:40 08:13 WBC (4.8-10.8) K/uL RBC (4.7-6.1) M/uL Hgb (14.0-18.0) g/dL Hct (42-52) % MCV (80-100) fL MCH (25-34) pg MCHC (32-36) g/dL RDW Std Deviation (36.4-46.3) fL RDW Coeff of Alin (11.5-14.5) % Plt Count (130-400) K/uL MPV (7.4-10.4) fL Absolute Nucleated RBC (0-0) K/uL Nucleated RBC % (auto) % Sodium 139 (136-145) mmol/L Potassium 3.9 (3.5-5.1) mmol/L Chloride 109 H (98-107) mmol/L Carbon Dioxide 26 (21-32) mmol/L Anion Gap 5.0 (3-11) BUN 12 (7-18) mg/dl Creatinine 0.93 (0.6-1.4) mg/dl Est Cr Clr Drug Dosing 82.1 ml/min Est GFR ( Amer) 98.1 Est GFR (Non-Af Amer) 84.6 BUN/Creatinine Ratio 12.4 (10-20) Glucose 69 L (70-99) mg/dl POC Glucose 76 75 (70-99) mg/dl Calcium 8.0 L (8.5-10.1) mg/dl Phosphorus 3.3 (2.5-4.9) mg/dl Magnesium 2.1 (1.8-2.4) mg/dl 09/23/19 09/23/19 09/23/19 Range/Units 08:13 07:39 06:04 WBC 21.79 H (4.8-10.8) K/uL RBC 3.89 L (4.7-6.1) M/uL Hgb 8.7 L (14.0-18.0) g/dL Hct 29.8 L (42-52) % MCV 76.6 L (80-100) fL MCH 22.4 L (25-34) pg MCHC 29.2 L (32-36) g/dL RDW Std Deviation 55.2 H (36.4-46.3) fL RDW Coeff of Alin 20.1 H (11.5-14.5) % Plt Count 263 (130-400) K/uL MPV 10.7 H (7.4-10.4) fL Absolute Nucleated RBC 0.67 H (0-0) K/uL Nucleated RBC % (auto) 3.1 % Sodium (136-145) mmol/L Potassium (3.5-5.1) mmol/L Chloride (98-107) mmol/L Carbon Dioxide (21-32) mmol/L Anion Gap (3-11) BUN (7-18) mg/dl Creatinine (0.6-1.4) mg/dl Est Cr Clr Drug Dosing ml/min Est GFR ( Amer) Est GFR (Non-Af Amer) BUN/Creatinine Ratio (10-20) Glucose (70-99) mg/dl POC Glucose 74 85 (70-99) mg/dl Calcium (8.5-10.1) mg/dl Phosphorus (2.5-4.9) mg/dl Magnesium (1.8-2.4) mg/dl 09/23/19 Range/Units 00:12 WBC (4.8-10.8) K/uL RBC (4.7-6.1) M/uL Hgb (14.0-18.0) g/dL Hct (42-52) % MCV (80-100) fL MCH (25-34) pg MCHC (32-36) g/dL RDW Std Deviation (36.4-46.3) fL RDW Coeff of Alin (11.5-14.5) % Plt Count (130-400) K/uL MPV (7.4-10.4) fL Absolute Nucleated RBC (0-0) K/uL Nucleated RBC % (auto) % Sodium (136-145) mmol/L Potassium (3.5-5.1) mmol/L Chloride (98-107) mmol/L Carbon Dioxide (21-32) mmol/L Anion Gap (3-11) BUN (7-18) mg/dl Creatinine (0.6-1.4) mg/dl Est Cr Clr Drug Dosing ml/min Est GFR ( Amer) Est GFR (Non-Af Amer) BUN/Creatinine Ratio (10-20) Glucose (70-99) mg/dl POC Glucose 107 H (70-99) mg/dl Calcium (8.5-10.1) mg/dl Phosphorus (2.5-4.9) mg/dl Magnesium (1.8-2.4) mg/dl Medications Administered Current Inpatient Medications Acetaminophen (Tylenol) 650 mg PO Q4H PRN PRN Reason: Pain or Fever Stop: 10/16/19 16:21 Last Admin: 09/17/19 04:02 Dose: 650 mg Documented by: Albuterol (Duoneb) 3 ml NEB Q4H PRN PRN Reason: Shortness Of Breath Or Wheezing Stop: 10/16/19 23:50 Albuterol (Duoneb) 3 ml NEB Q4R KRISTIAN Stop: 10/21/19 18:59 Last Admin: 09/23/19 07:25 Dose: 3 ml Documented by: Carvedilol (Coreg) 6.25 mg PO BID KRISTIAN Stop: 10/16/19 23:50 Last Admin: 09/18/19 08:48 Dose: Not Given Documented by: Dextrose (Dextrose 50%) 25 - 50 ml IV UD PRN; Protocol PRN Reason: Hypoglycemia Protocol Stop: 10/20/19 01:03 Last Admin: 09/20/19 05:11 Dose: 25 ml Documented by: Guaifenesin (Mucinex) 600 mg PO Q12 KRISTIAN Stop: 10/17/19 20:59 Last Admin: 09/22/19 20:57 Dose: 600 mg Documented by: Heparin Sodium (Beef Lung) (Heparin Sod 10 Unit/Ml Flush) 5 ml FLUSH PRN PRN PRN Reason: Flush Stop: 10/19/19 22:48 Last Admin: 09/22/19 23:50 Dose: 5 ml Documented by: Ertapenem 1,000 mg/ Sodium (Chloride) 60 mls @ 100 mls/hr IV Q24H KRISTIAN Stop: 09/25/19 10:59 Last Infusion: 09/22/19 12:38 Dose: Infused Documented by: Lactulose (Chronulac) 20 gm PO TID KRISTIAN Stop: 10/17/19 00:14 Last Admin: 09/23/19 07:57 Dose: 20 gm Documented by: Levothyroxine Sodium (Synthroid) 200 mcg PO DAILYBB [facility] Stop: 10/17/19 06:29 Last Admin: 09/23/19 06:02 Dose: 200 mcg Documented by: Levothyroxine Sodium (Synthroid) 50 mcg PO DAILYBB [facility] Stop: 10/17/19 06:29 Last Admin: 09/23/19 06:01 Dose: 50 mcg Documented by: Magnesium Oxide (Mag-Ox) 400 mg PO BID KRISTIAN Stop: 10/20/19 20:59 Last Admin: 09/22/19 20:57 Dose: 400 mg Documented by: Metoprolol Tartrate (Lopressor) 5 mg IV Q5M PRN PRN Reason: Tachycardia Last Admin: 09/20/19 09:06 Dose: 5 mg Documented by: Metoprolol Tartrate (Lopressor) 12.5 mg PO Q8 KRISTIAN Stop: 10/19/19 13:59 Last Admin: 09/23/19 06:01 Dose: 12.5 mg Documented by: Metoprolol Tartrate (Lopressor) 5 mg IV Q5M PRN PRN Reason: Tachycardia Miscellaneous (Carbohydrates For Hypoglycemia) 15 - 30 gm PO UD PRN PRN Reason: Hypoglycemia Protocol Stop: 10/20/19 01:03 Last Admin: 09/20/19 18:35 Dose: 15 gm Documented by: Morphine Sulfate (Ms Contin) 100 mg PO Q6 KRISTIAN Stop: 10/06/19 13:59 Last Admin: 09/23/19 06:01 Dose: 100 mg Documented by: Ondansetron HCl (Zofran) 4 mg IV Q6H PRN PRN Reason: Nausea Stop: 10/16/19 16:21 Oxycodone HCl (Roxicodone Immediate Rel) 10 mg PO Q4H PRN PRN Reason: Pain Stop: 10/01/19 17:44 Pantoprazole Sodium (Protonix) 40 mg PO BID KRISTIAN Stop: 10/17/19 11:59 Last Admin: 09/22/19 20:57 Dose: 40 mg Documented by: Polyethylene Glycol (Miralax Powder Packet) 17 gm PO DAILY KRISTIAN Stop: 10/18/19 08:59 Last Admin: 09/23/19 07:57 Dose: Not Given Documented by: Sodium Chloride (Sodium Chlor 7% Neb Solution) 4 ml NEB BIDR KRISTIAN Stop: 10/21/19 18:59 Last Admin: 09/23/19 07:26 Dose: 4 ml Documented by: Sucralfate (Carafate) 1 gm PO BID KRISTIAN Stop: 10/18/19 20:59 Last Admin: 09/23/19 07:57 Dose: 1 gm Documented by: Tamsulosin HCl (Flomax) 0.4 mg PO HS KRISTIAN Stop: 10/16/19 23:50 Last Admin: 09/17/19 22:48 Dose: Not Given Documented by: (1) GI bleed GI bleed type/associated pathology: unspecified gastrointestinal hemorrhage type Qualified Code(s): K92.2 - Gastrointestinal hemorrhage, unspecified (2) Hypothyroidism Hypothyroidism type: unspecified Qualified Code(s): E03.9 - Hypothyroidism, unspecified (3) Leukocytosis Leukocytosis type: unspecified Qualified Code(s): D72.829 - Elevated white blood cell count, unspecified (4) COPD (chronic obstructive pulmonary disease) COPD type: unspecified COPD Qualified Code(s): J44.9 - Chronic obstructive pulmonary disease, unspecified (5) GERD (gastroesophageal reflux disease) Esophagitis presence: esophagitis presence not specified Qualified Code(s): K21.9 - Gastro-esophageal reflux disease without esophagitis (6) Chronic sinusitis Sinusitis location: unspecified location Qualified Code(s): J32.9 - Chronic sinusitis, unspecified
[2019-09-23 08:34] LABS: Hematocrit (blood only) 29.8 % (42-52); Hemoglobin 8.7 g/dL (14.0-18.0); Mean Corpuscular Hemoglobin 22.4 pg (25-34); Mean Corpuscular Hgb Conc 29.2 g/dL (32-36); Mean Corpuscular Volume 76.6 fL (80-100); Mean Platelet Volume 10.7 fL (7.4-10.4); Nucleated RBC # (auto) 0.67 K/uL (0-0); Nucleated RBC % (auto) 3.1 %; Platelet Count 263 K/uL (130-400); RDW Coefficient of Variation 20.1 % (11.5-14.5); RDW Standard Deviation 55.2 fL (36.4-46.3); Red Blood Count 3.89 M/uL (4.7-6.1); White Blood Count 21.79 K/uL (4.8-10.8)
[2019-09-23] MEDS: guaiFENesin 600 MG TABCR PO SCH ×2 (08:42→21:11)
[2019-09-23] MEDS: PANTOprazole 40 MG TAB PO SCH ×2 (08:43→21:12)
[2019-09-23] MEDS: MAGNESIUM OXIDE 400 MG TAB PO SCH ×2 (08:43→21:11)
[2019-09-23 09:10] LABS: Phosphorus 3.3 mg/dl (2.5-4.9)
[2019-09-23 09:12] LABS: BUN Creatinine Ratio 12.4 (10-20); Creatinine Clr Calc Pharmacy 82.1 ml/min; Est GFR (African American) 98.1; Est GFR (Non-African American) 84.6; Magnesium 2.1 mg/dl (1.8-2.4); Potassium 3.9 mmol/L (3.5-5.1)
[2019-09-23] MEDS: ERTAPENEM SODIUM 1,000 MG in SODIUM CHLORIDE 0.9% 50 ML IV SCH (11:55)
--- NOTE | 2019-09-23 14:38 | Palliative Care Progress Note ---
Date of Service September 23, 2019 Assessment & Plan (1) Cancer related pain: Briefly the patient is a 69-year-old incarcerated male who presented to the hospital on 09/15 with nausea vomiting and anemia. Patient's hemoglobin was 7.4-a drop from 11.2 a month prior, has a history of MALT of the stomach. Patient went into acute respiratory distress requiring intubation on 09/16 along with pressors. Patient was extubated and transferred to the floor. Patient is currently on O2 at 4 L nasal cannula. Past medical history significant for cirrhosis, history of renal cell CA status post nephrectomy, hypertension, HLD, CAD, PVD, hypothyroidism, chronic sinusitis-status post surgery x2 and COPD. Asked to assist with narcotic pain medications. Patient's ammonia level was elevated at 69-repeat today was 25-this may have contributed to his altered mental status. Of note his albumin is 1.4, his TSH was low at 0.064. Patient was transfused for hemoglobin of 7.4, patient's hemoglobin is 9.0 on labs drawn today. -Patient was taking OxyContin 120 mg 3 times a day for the past 3 years. In the ICU he was started on methadone 10 mg twice daily-for 4 doses, patient became minimally responsive-likely due to the potentiation of other sedating medications he received while in the ICU. Methadone dose was decreased to 5 mg and he received 1 dose at 9 AM on 09/21. -Of note patient had A. fib with RVR-his QTc on admission was 429-increased to 457 and was 495 on his latest EKG. With his prolonged QTc after 2 doses of methadone-this is not a good choice of medication for him. -Patient's equivalent dose of morphine was calculated and then reduced by 25%-he was started on 100 mg 4 times daily. Patient did well overnight but is somnolent today, he was reportedly more alert earlier this morning. Somnolence is likely due to the potentiation by the methadone which is likely still in his system given its long half-life of up to 59 hours. -We will continue to assess prior to giving MS Contin-noon dose was held, attending physician to assess for 6 PM dose. -Patient states he has frequent nausea which he feels is due to his Imbruvica, which she has been on over the past 3 months since he was first diagnosed with MALT. Review of patient's prior weight-patient's weight was 150 pounds in February 2019, his weight on admission was 175. Given his weight, I am assuming that his nausea is not interfering with his eating. Patient was actually finishing his lunch during my exam. -Collaborated with attending physician -Will continue to follow and adjust pain medications as needed. Expect sedation to improve as methadone decreases in his system. 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 (5) Anemia: Following CBCs, status post transfusion, hemoglobin stable at 8.79.0 Subjective Patient seen and examined, guards and nursing at bedside. Collaborated with attending physician Dr. Potts Patient reports his pain control is good-has not required any PRN medications, however he is quite sedated, his noon dose of MS Contin has been held. Patient likely has methadone still in his [id number] of methadone can be up to 59 hours which will potentiate any other opioids he receives. Discussed with attending physician-evaluate patient prior to 6 PM dose of MS Contin-if still sedated would hold dose, if slightly drowsy consider giving a lower dose. We will continue to reassess. Patient currently on 25% reduced dose of analgesic equivalent of OxyContin that he was on prior to admission. EKG performed yesterday showed improvement of his QTc from 495 down to 424. Review of Systems Review of Systems: Patient denies fever, chills, chest pain, shortness of breath. Reports his abdominal pain due to his cancer is well controlled. Physical Exam Physical Exam: PE: Somnolent-easily aroused HEENT: Eyes have closed when awake, speech clear and not slurred Respirations: Unlabored, clear breath sounds CV: Regular rate Abdomen: Nontender to light palpation Neuro: Mild to moderate sedation, alert and oriented Results & Data Vital Signs (Past 12 Hours) Vital Signs Temp Pulse Pulse Resp BP Pulse Ox 09/23/19 14:20 68 20 91 09/23/19 13:30 66 18 95 09/23/19 13:00 66 20 93 09/23/19 11:49 97.5 F L 69 18 144/97 H 97 09/23/19 11:35 70 22 84 L 09/23/19 09:00 61 09/23/19 07:28 63 18 91 09/23/19 07:21 97.5 F L 64 16 125/82 92 09/23/19 06:02 65 139/85 09/23/19 03:24 97.5 F L 62 20 124/81 90 PG Care Time/CCT Total # of Minutes Spent Total Time Spent with Patient: Total time spent 35 minutes with greater than 50% of the time spent at bedside assessing patient's current pain control, level of sedation as well as collaborating with attending physician on the unit. 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
[2019-09-23] MEDS: CARBOHYDRATES FOR HYPOGLYCEMIA PO PRN (20:34)
[2019-09-23] MEDS ORDERED: GLUCOSE 10 TABS/TUBE PO ONE (21:00)
[2019-09-23] MEDS: TAMSULOSIN HCL 0.4 MG CAP PO SCH (21:13)
[2019-09-23] MEDS ORDERED: DEXTROSE 5% 1,000 ML IV SCH (22:45)
[2019-09-24] MEDS: ALBUT/IPRATROP 3MG/0.5MG NEB 3 ML VIAL NEB SCH ×6 (03:07→23:27)
[2019-09-24] MEDS: MoRPHine SULFATE CR 100 MG TABCR PO SCH ×3 (05:16→17:49)
[2019-09-24] MEDS: LEVOTHYROXINE SODIUM 50 MCG TABLET PO SCH (05:16)
[2019-09-24] MEDS: METOPROLOL TARTRATE 25 MG TAB PO SCH ×3 (05:17→21:44)
[2019-09-24] MEDS: LEVOTHYROXINE SODIUM 200 MCG TABLET PO SCH (05:17)
[2019-09-24] MEDS: DEXTROSE 50% 50 ML SYRINGE IV PRN (05:24)
[2019-09-24 06:48] LABS: Hematocrit (blood only) 27.2 % (42-52); Mean Corpuscular Hemoglobin 22.3 pg (25-34); Mean Corpuscular Hgb Conc 29.4 g/dL (32-36); Mean Platelet Volume 10.7 fL (7.4-10.4); Nucleated RBC # (auto) 0.35 K/uL (0-0); Nucleated RBC % (auto) 2.1 %; Platelet Count 271 K/uL (130-400); RDW Coefficient of Variation 20.2 % (11.5-14.5); RDW Standard Deviation 54.9 fL (36.4-46.3); Red Blood Count 3.58 M/uL (4.7-6.1)
[2019-09-24 07:26] LABS: Calcium 8.1 mg/dl (8.5-10.1)
[2019-09-24 07:27] LABS: BUN Creatinine Ratio 12.8 (10-20); Est GFR (African American) 95.6; Est GFR (Non-African American) 82.5; Potassium 3.8 mmol/L (3.5-5.1)
[2019-09-24] MEDS ORDERED: ACETAMINOPHEN 325 MG TAB PO PRN (07:58)
[2019-09-24] MEDS: LACTULOSE SYRUP 20 GM/30 ML UDC PO SCH ×3 (08:35→21:44)
[2019-09-24] MEDS: PANTOprazole 40 MG TAB PO SCH ×2 (08:35→21:44)
[2019-09-24] MEDS: MAGNESIUM OXIDE 400 MG TAB PO SCH ×2 (08:35→21:44)
[2019-09-24] MEDS: SUCRALFATE 1 GM/10 ML UDC PO SCH ×2 (08:35→21:45)
[2019-09-24] MEDS: POLYETHYLENE (MIRALAX) 17 GM PACK PO SCH (08:36)
[2019-09-24] MEDS: guaiFENesin 600 MG TABCR PO SCH (08:36)
[2019-09-24] MEDS: D5W AND 1/2NSS 1,000 ML IV SCH (09:30)
--- NOTE | 2019-09-24 09:54 | Hospitalist Progress Note ---
Date of Service September 24, 2019 Assessment & Plan (1) GI bleed: Pt presented from [facility] with worsening of chronic anemia (Hgb 11.2 --> 7.4 since last month), heme positive stool, and ongoing N/V with hx of gastritis and esophageal varices (per chart although EGD earlier this year did not reveal varices) - Started on octreotide and Protonix gtts in the ED - Receiving one unit of PRBCs - follow H&H for stability post-transfusion -GI consulted Per GI: Hx of cirrhosis, recent EGD 2 month's ago w/o signs of varices, GAVE or portal HTN. 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 -he has been off Octreotide and protonics drip on this admission; Continue him on Protonix 40mg BID -gastroenterology Deferring endoscopic eval at this time unless displaying hematemesis/coffee ground emesis/melena/hematochezia (2) JAMISON (acute kidney injury): Evidence of JAMISON with elevated BUN and creatinine compared to last labs - suspect component of dehydration Creatinine 1.54 on September 15 (admission) -normalized with IV fluids on this admission (3) Hypokalemia: - has improved on this admission (4) Hypoxia: Initially suspected due to anemia and underlying COPD - improved with oxygen, initially on admission. No known COVID exposure or sick contacts. COVID negative Hypoxia worsened morning after admission, possibly due to pulmonary congestion as patient received blood transfusion overnight, and IV fluids. Pt was using 3.5 L of O2 via nasal cannula Obtained chest x-ray and ABG, small dose of IV Lasix Patient has chronic sinusitis, several ENT surgeries in the past and 1 more planned in the near future. Sputum culture ordered as patient did have sputum production. Empiric antibiotic, Zosyn started. As above, patient's mental status worsened throughout the day on 09/16, and oxygen requirement increased, requiring ICU consultation and transfer Patient is currently extubated, on 3-4L of suppl. O2 via nasal cannula, on ertapenem, hypoxia now due to pneumonia -ertapenem antibiotic to fall off after 09/25/2019, repeat CXR on 09/25/2019 Mental status changes/encephalopathy -Possibly secondary to ongoing infection, hepatic encephalopathy, with ammonia level elevated, and combination of high-dose opioids, patient is on high dose of oxycodone in the outpatient setting (d/t cancer pain) -while in ICU, he was started on methadone by ICU team to prevent withdrawal -Currently mental status is much improved (09/19), patient is awake and answers most questions appropriately -Lactulose provided, ammonia level decreased -Oxycodone 120 mg 3 times a day for past 3 yrs, switched to methadone in ICU, -being followed by palliative medicine further pain management and currently on MS Contin 100 mg every 6 hours (5) 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 Being managed by a physician at [facility]. -Holding Imbruvica on admission- may need to discus with oncology pending clinical course -Per further review, seen by telehealth, Dr. Perdomo (recurrent MZL with nodular involvement of the stomach), on Imbruvica -Patient saw Dr. Dias at [facility] cancer [facility]. Dr. Dias elected not to do a bone marrow biopsy at that time. 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 Mr. Akbar has a history of MALT lymphoma and may have bone marrow involvement. He has an M spike of 1.9 g/dL. Plan to follow-up with Dr. Dias in September 2019 -Plan to follow-up with [facility] oncology History of renal cell carcinoma, status post partial nephrectomy (6) Leukocytosis: -On admission , ongoing issues since fall - unclear if active infection at present. May be related to chronic sinusitis, ongoing prednisone use, underlying lymphoma. Given hypoxia, and sputum production, empiric Zosyn started. Patient had increased oxygen requirement on 09/17/2019 and mental status worsened, patient required ICU admission and was intubated and sedated. Currently patient is extubated. -currently on respiratory antibiotics (7) Chronic sinusitis: Has seen ENT in the past - recent course of Augmentin, history of ENT surgery x2 (8) Hypothyroidism: -outpatient levothyroxine has been 250 mcg daily -TSH on 09/17/2019 is very low with normal free T4, reduce the home dose levothyroxine from 250 mcg daily to 200 mcg daily starting on 09/25/2019 (9) Neuropathy: - Continue gabapentin for neuropathic pain (10) HTN (hypertension): -Patient required vasopressors when he was in ICU earlier on this admission -home dose carvedilol replaced as metoprolol 12.5 mg q8 hours on this admission, continue metoprolol (11) CAD (coronary artery disease): Paroxysmal atrial fibrillation -aspirin has been held on this admission because of previous concerns for GI blood loss -New onset of Atrial fibrillation on this admission which then converted backed to sinus without cardioversion, currently on metoprolol for rate control (12) COPD (chronic obstructive pulmonary disease): - Holding outpatient inhaler for now - PRN DuoNebs if symptomatic (13) GERD (gastroesophageal reflux disease): - On pantoprazole Admission and Anticipated Discharge Date Admission Date: September 16, 2019 Subjective Patient denies shortness of breath but is on nasal cannula 4 liters/min. He denies of using oxygen overnight but the guards at the bedside reports he had supplementary oxygen throughout the night and this is verified by his nurse. He was able to some toast for breakfast. Nurse is concerned that he is not eating enough. patient denies abdomen pain. no vomiting. no chest pain. no dizziness. no lightheadedness. he denies problems with urination or with bowel movements Review of Systems Review of Systems: All systems reviewed & are unremarkable except as noted in Subjective Physical Exam Constitutional: cooperative Eyes: PERRL, conjunctivae normal, anicteric sclerae EOM intact bilaterally ENMT: external ear and nose normal, oropharynx normal Neck: trachea midline, no thyromegaly normal visual inspection Respiratory: normal respiratory effort Cardiovascular: Rate/Rhythm: regular rate Gastrointestinal (Abdomen): normal bowel sounds, soft, nontender, no hepatosplenomegaly Musculoskeletal: Head/Neck/Chest: normocephalic and head atraumatic Neurologic: PERRL, EOMI, accommodation nl, no face palsy, no dysarthria moves all extremities Psychiatric: A+Ox3, euthymic affect Results & Data Results & Data ([facility]) Vital Signs (Past 12 Hours) Vital Signs Temp Pulse Pulse Resp BP Pulse Ox 09/24/19 07:32 99 H 18 94 09/24/19 07:16 37 C 64 18 148/78 H 92 09/24/19 05:17 59 L 104/70 09/24/19 03:46 37.2 C 65 18 128/79 09/24/19 03:07 70 18 95 09/24/19 01:56 72 09/23/19 23:47 37.3 C 68 20 129/82 95 09/23/19 22:57 70 14 96 (1) GI bleed GI bleed type/associated pathology: unspecified gastrointestinal hemorrhage type Qualified Code(s): K92.2 - Gastrointestinal hemorrhage, unspecified (2) Hypothyroidism Hypothyroidism type: unspecified Qualified Code(s): E03.9 - Hypothyroidism, unspecified (3) COPD (chronic obstructive pulmonary disease) COPD type: unspecified COPD Qualified Code(s): J44.9 - Chronic obstructive pulmonary disease, unspecified (4) GERD (gastroesophageal reflux disease) Esophagitis presence: esophagitis presence not specified Qualified Code(s): K21.9 - Gastro-esophageal reflux disease without esophagitis (5) Chronic sinusitis Sinusitis location: unspecified location Qualified Code(s): J32.9 - Chronic sinusitis, unspecified (6) Leukocytosis Leukocytosis type: unspecified Qualified Code(s): D72.829 - Elevated white blood cell count, unspecified
[2019-09-24] MEDS ORDERED: guaiFENesin 600 MG TABCR PO PRN (10:00)
--- NOTE | 2019-09-24 11:09 | Palliative Care Progress Note ---
Date of Service September 24, 2019 Assessment & Plan (1) Cancer related pain: Briefly the patient is a 69-year-old incarcerated male who presented to the hospital on 09/15 with nausea vomiting and anemia. Patient's hemoglobin was 7.4-a drop from 11.2 a month prior, has a history of MALT of the stomach. Patient went into acute respiratory distress requiring intubation on 09/16 along with pressors. Patient was extubated and transferred to the floor. Patient is currently on O2 at 4 L nasal cannula. Past medical history significant for cirrhosis, history of renal cell CA status post nephrectomy, hypertension, HLD, CAD, PVD, hypothyroidism, chronic sinusitis-status post surgery x2 and COPD. Asked to assist with narcotic pain medications. Patient's ammonia level was elevated at 69-repeat today was 25-this may have contributed to his altered mental status. Of note his albumin is 1.4, his TSH was low at 0.064. Patient was transfused for hemoglobin of 7.4, patient's hemoglobin is 9.0 on labs drawn today. -Met with the patient in room 259. Patient was awake, able to hold some meaningful conversation while intermittently closing his eyes. This is improved from yesterday. -Per nursing and the CO's he ate one piece of amharic toast for breakfast. The patient reports no Nausea or Vomiting this morning. -The patient's QTc is decreasing. On admission it was 429, then 495 and now this morning is down to .424. -As previously mentioned, the half life of Methadone can range anywhere from 12- 59 hours. His last dose of Methadone was 09/21 at 0900. -I talked with the patient about his goals of care and thoughts regarding additional treatments, if they are an option after further discussion with heme/onc. -He stated that he feels he can tolerate treatments well, and if immunotherapy or another option is available, he would like to keep that pathway open as long as possible. -We briefly did discuss code status, but he became sleepy. -For now, he will remain a full code. -We will await heme-onc's input regard his MALT (mucosa-associated lymphoid tissue) tumor and will continue to not only address his overall pain management, but also goals of care if necessary. -I discussed the above with the attending physician. Should the patient be more sedated, suggest holding Oxycontin doing. Once Methadone fully out of system, will adjust Oxycontin as necessary. -Palliative care will follow. 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 (5) Anemia: Following CBCs, status post transfusion, hemoglobin stable at 8.79.0 Subjective pt reports having abdominal discomfort, but could not describe or rate his pain patient states he feels "more awake" Review of Systems Review of Systems: Patient denies fever, chills, chest pain, shortness of breath. Reports + abdominal pain Physical Exam Constitutional: well developed, + ill appearing and + lethargic Eyes: PERRL, conjunctivae normal, anicteric sclerae Respiratory: normal respiratory effort, lungs clear to auscultation Auscultation: + diminished lung sounds Cardiovascular: RRR, no murmur, no edema Gastrointestinal (Abdomen): normal bowel sounds, soft, nontender, no hepatosplenomegaly Percussion/Palpation: + abdomen tender (diffuse lower abdomen ) Skin: no rashes, warm and dry Psychiatric: Orientation: alert, oriented x 3 and cooperative Results & Data Vital Signs (Past 12 Hours) Vital Signs Temp Pulse Pulse Resp BP Pulse Ox 09/24/19 07:32 99 H 18 94 09/24/19 07:16 37 C 64 18 148/78 H 92 09/24/19 05:17 59 L 104/70 09/24/19 03:46 37.2 C 65 18 128/79 09/24/19 03:07 70 18 95 09/24/19 01:56 72 09/23/19 23:47 37.3 C 68 20 129/82 95 09/23/19 22:57 70 14 96 PG Care Time/CCT Total # of Minutes Spent Total Time Spent with Patient: Total time spent is greater than 50% in coordination of care (as documented) at patient's floor/unit and/or counseling patient: 45 Coding Level of Care Code 01422 Subseq Hosp Care Lvl 3 Diagnoses Cancer related pain G89.3 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
[2019-09-24] MEDS: ERTAPENEM SODIUM 1,000 MG in SODIUM CHLORIDE 0.9% 50 ML IV SCH (11:31)
[2019-09-24] MEDS: TAMSULOSIN HCL 0.4 MG CAP PO SCH (21:44)
[2019-09-24] MEDS ORDERED: ALTEPLASE, RECOMBINANT 1 MG/ML 2ML VIAL INSTIL ONE (23:15)
[2019-09-25] MEDS: MoRPHine SULFATE CR 100 MG TABCR PO SCH ×3 (00:05→11:28)
[2019-09-25] MEDS: ALBUT/IPRATROP 3MG/0.5MG NEB 3 ML VIAL NEB SCH ×7 (03:09→23:31)
[2019-09-25 05:53] LABS: Hemoglobin 8.3 g/dL (14.0-18.0); Mean Corpuscular Hemoglobin 22.1 pg (25-34); Mean Corpuscular Hgb Conc 29.6 g/dL (32-36); Mean Corpuscular Volume 74.7 fL (80-100); Mean Platelet Volume 10.3 fL (7.4-10.4); Nucleated RBC # (auto) 0.07 K/uL (0-0); Nucleated RBC % (auto) 0.5 %; Platelet Count 291 K/uL (130-400); RDW Coefficient of Variation 20.2 % (11.5-14.5); RDW Standard Deviation 54.4 fL (36.4-46.3); Red Blood Count 3.75 M/uL (4.7-6.1); White Blood Count 14.79 K/uL (4.8-10.8)
[2019-09-25] MEDS: D5W AND 1/2NSS 1,000 ML IV SCH (06:35)
[2019-09-25] MEDS: METOPROLOL TARTRATE 25 MG TAB PO SCH ×3 (06:36→20:40)
[2019-09-25] MEDS: LEVOTHYROXINE SODIUM 200 MCG TABLET PO SCH (06:37)
[2019-09-25 06:38] LABS: BUN Creatinine Ratio 10.5 (10-20); Calcium 8.1 mg/dl (8.5-10.1); Creatinine Clr Calc Pharmacy 89.1 ml/min; Est GFR (African American) 98.1; Est GFR (Non-African American) 84.6
[2019-09-25] MEDS: LACTULOSE SYRUP 20 GM/30 ML UDC PO SCH ×3 (08:24→20:40)
[2019-09-25] MEDS: PANTOprazole 40 MG TAB PO SCH ×2 (08:24→20:41)
[2019-09-25] MEDS: SUCRALFATE 1 GM/10 ML UDC PO SCH ×2 (08:24→20:41)
[2019-09-25] MEDS: POLYETHYLENE (MIRALAX) 17 GM PACK PO SCH (08:24)
[2019-09-25] MEDS: MAGNESIUM OXIDE 400 MG TAB PO SCH ×2 (09:03→20:41)
--- NOTE | 2019-09-25 11:19 | XRay Report ---
XR chest 1V portable CLINICAL HISTORY: follow lung infiltrates COMPARISON STUDY: 09/22/2019 FINDINGS: There is a right internal jugular central venous catheter. The heart remains enlarged. Ther e is slight improvement in the bilateral pulmonary airspace opacities. There are decreasing bilateral pleural effusions. Multiple metallic projectile fragments project over the left lower chest. IMPRESSION: 1. Cardiomegaly and improving bilateral pulmonary opacities likely representing improving pulmonary e claus. Decreasing pleural effusions. ACT 112: Negative or not required by law. Electronically signed by: Hal Hernandez M.D. 09/25/2019 11:17 AM
--- NOTE | 2019-09-25 13:32 | Hospitalist Progress Note ---
Date of Service September 25, 2019 Assessment & Plan (1) GI bleed: Pt presented from [facility] with worsening of chronic anemia (Hgb 11.2 --> 7.4 since last month), heme positive stool, and ongoing N/V with hx of gastritis and esophageal varices (per chart although EGD earlier this year did not reveal varices) - Started on octreotide and Protonix gtts in the ED - Receiving one unit of PRBCs - follow H&H for stability post-transfusion -GI consulted Per GI: Hx of cirrhosis, recent EGD 2 month's ago w/o signs of varices, GAVE or portal HTN. 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 -he has been off Octreotide and protonics drip on this admission; Continue him on Protonix 40mg BID -gastroenterology Deferring endoscopic eval at this time unless displaying hematemesis/coffee ground emesis/melena/hematochezia (2) JAMISON (acute kidney injury): Evidence of JAMISON with elevated BUN and creatinine compared to last labs - suspect component of dehydration Creatinine 1.54 on September 15 (admission) -normalized with IV fluids on this admission (3) Hypokalemia: - has improved on this admission (4) Hypoxia: Initially suspected due to anemia and underlying COPD - improved with oxygen, initially on admission. No known COVID exposure or sick contacts. COVID negative Hypoxia worsened morning after admission, possibly due to pulmonary congestion as patient received blood transfusion overnight, and IV fluids. Pt was using 3.5 L of O2 via nasal cannula Obtained chest x-ray and ABG, small dose of IV Lasix Patient has chronic sinusitis, several ENT surgeries in the past and 1 more planned in the near future. Sputum culture ordered as patient did have sputum production. Empiric antibiotic, Zosyn started. As above, patient's mental status worsened throughout the day on 09/16, and oxygen requirement increased, requiring ICU consultation and transfer Patient then extubated, on 3-4L of suppl. O2 via nasal cannula and continued ertapenum which is completed on 09/25/2019 repeat CXR on 09/25/2019 Cardiomegaly and improving bilateral pulmonary opacities likely representing improving pulmonary edema. Decreasing pleural effusions. continue supplementary oxygen and titrate down as possible as of 09/25/2019 transition from Ertapenem to Ceftriaxone and Doxycycline in anticipating later transition to Augmentin and Doxycycyline when able to be discharged Mental status changes/encephalopathy -Possibly secondary to ongoing infection, hepatic encephalopathy, with ammonia level elevated, and combination of high-dose opioids, patient is on high dose of oxycodone in the outpatient setting (d/t cancer pain) -while in ICU, he was started on methadone by ICU team to prevent withdrawal. 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 Being managed by a physician at [facility]. -Holding Imbruvica on admission- may need to discus with oncology pending clinical course -Per further review, seen by telehealth, Dr. Perdomo (recurrent MZL with nodular involvement of the stomach), on Imbruvica -Patient saw Dr. Dias at [facility] cancer care partnership. Dr. Dias elected not to do a bone marrow biopsy at that time. 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 Mr. Akbar has a history of MALT lymphoma and may have bone marrow involvement. He has an M spike of 1.9 g/dL. Plan to follow-up with Dr. Dias in September 2019 -Plan to follow-up with [facility] oncology History of renal cell carcinoma, status post partial nephrectomy (6) Leukocytosis: -On admission , ongoing issues since fall - unclear if active infection at present. May be related to chronic sinusitis, ongoing prednisone use, underlying lymphoma. Given hypoxia, and sputum production, empiric Zosyn started. Patient had increased oxygen requirement on 09/17/2019 and mental status worsened, patient required ICU admission and was intubated and sedated. Currently patient is extubated. -currently on respiratory antibiotics (7) Chronic sinusitis: history of ENT surgery x2 (8) Hypothyroidism: -outpatient levothyroxine has been 250 mcg daily -TSH on 09/17/2019 is very low with normal free T4, reduce the home dose levothyroxine from 250 mcg daily to 200 mcg daily starting on 09/25/2019 (9) Neuropathy: - Continue gabapentin for neuropathic pain (10) HTN (hypertension): -Patient required vasopressors when he was in ICU earlier on this admission -home dose carvedilol replaced as metoprolol 12.5 mg q8 hours on this admission, continue metoprolol (11) CAD (coronary artery disease): Paroxysmal atrial fibrillation -aspirin has been held on this admission because of previous concerns for GI blood loss -New onset of Atrial fibrillation on this admission which then converted backed to sinus without cardioversion, currently on metoprolol for rate control (12) COPD (chronic obstructive pulmonary disease): - Holding outpatient inhaler for now - PRN DuoNebs if symptomatic (13) GERD (gastroesophageal reflux disease): - On pantoprazole Ambulatory dysfunction -patient generally mobilizes wheelchair while in correctional facility at [facility], this is affirmed by correctional facility Dr. Ashley by telephone on 09/25/2019 -offer PT/OT services while inpatient Admission and Anticipated Discharge Date Admission Date: September 16, 2019 Subjective patient seen and examined while eating the lunch. no acute distress. denies acute pain. no dizziness. no headache. no vomiting Review of Systems Review of Systems: All systems reviewed & are unremarkable except as noted in Subjective Physical Exam Constitutional: cooperative Eyes: PERRL, conjunctivae normal, anicteric sclerae EOM intact bilaterally ENMT: external ear and nose normal, oropharynx normal Neck: trachea midline, no thyromegaly normal visual inspection Respiratory: normal respiratory effort Cardiovascular: Rate/Rhythm: regular rate Gastrointestinal (Abdomen): normal bowel sounds, soft, nontender, no hepatosplenomegaly Musculoskeletal: Head/Neck/Chest: normocephalic and head atraumatic Neurologic: PERRL, EOMI, accommodation nl, no face palsy, no dysarthria Psychiatric: A+Ox3, euthymic affect Results & Data Results & Data ([facility] [place]) Vital Signs (Past 12 Hours) Vital Signs Temp Pulse Resp BP BP Pulse Ox 09/25/19 11:20 37.1 C 69 18 143/83 H 96 09/25/19 11:00 70 20 96 09/25/19 07:10 37.4 C 63 20 119/76 96 09/25/19 06:45 63 20 98 09/25/19 04:18 37.7 C H 65 18 127/63 90 09/25/19 03:10 63 18 99 (1) GI bleed GI bleed type/associated pathology: unspecified gastrointestinal hemorrhage type Qualified Code(s): K92.2 - Gastrointestinal hemorrhage, unspecified (2) Hypothyroidism Hypothyroidism type: unspecified Qualified Code(s): E03.9 - Hypothyroidism, unspecified (3) Leukocytosis Leukocytosis type: unspecified Qualified Code(s): D72.829 - Elevated white blood cell count, unspecified (4) COPD (chronic obstructive pulmonary disease) COPD type: unspecified COPD Qualified Code(s): J44.9 - Chronic obstructive pulmonary disease, unspecified (5) GERD (gastroesophageal reflux disease) Esophagitis presence: esophagitis presence not specified Qualified Code(s): K21.9 - Gastro-esophageal reflux disease without esophagitis (6) Chronic sinusitis Sinusitis location: unspecified location Qualified Code(s): J32.9 - Chronic sinusitis, unspecified
--- NOTE | 2019-09-25 13:38 | Palliative Care Progress Note ---
Date of Service September 25, 2019 Assessment & Plan (1) Cancer related pain: Briefly the patient is a 69-year-old incarcerated male who presented to the hospital on 09/15 with nausea vomiting and anemia. Patient's hemoglobin was 7.4-a drop from 11.2 a month prior, has a history of MALT of the stomach. Patient went into acute respiratory distress requiring intubation on 09/16 along with pressors. Patient was extubated and transferred to the floor. Patient is currently on O2 at 4 L nasal cannula. Past medical history significant for cirrhosis, history of renal cell CA status post nephrectomy, hypertension, HLD, CAD, PVD, hypothyroidism, chronic sinusitis-status post surgery x2 and COPD. Asked to assist with narcotic pain medications. Patient's ammonia level was elevated at 69-repeat today was 25-this may have contributed to his altered mental status. Of note his albumin is 1.4, his TSH was low at 0.064. Patient was transfused for hemoglobin of 7.4, patient's hemoglobin is 9.0 on labs drawn today. -Met with the patient in room 259. Patient was awake, more alert, did not doze off during visit. -Per nursing and the CO's patient still with daytime sleepiness-we will decrease MS Contin to 90 mg 4 times daily -The patient's QTc is decreasing. On admission it was 429, then 495 and down to 424 on 09/21. -As previously mentioned, the half life of Methadone can range anywhere from 12- 59 hours. His last dose of Methadone was 09/21 at 0900. -He stated that he was on Imbruvica for the past 3 months - plan was for 6 months of treatment -For now, he will remain a full code. . -I discussed the above with the attending physician. Some of his sedation may still be due to methadone, but will decrease his MS Contin for now to 90 mg 4 times daily. -Palliative care will follow. 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 (5) Anemia: Following CBCs, status post transfusion, hemoglobin stable at 8.3 Subjective Patient more alert on exam this a.m. He has not required any PRN pain medications for breakthrough pain. Nursing reports patient still with increased somnolence during the daytime-we will decrease his MS Contin to 90 mg 4 times daily Review of Systems Review of Systems: Patient denies fever, chills, chest pain, shortness of breath or increased abdominal pain Physical Exam Physical Exam: PE: Patient more alert on exam, no acute distress HEENT: EOMI, hearing within normal limits Respirations unlabored, weaning O2 CV: Regular rate Abdomen: Distended, no increased tenderness Neuro: More alert Results & Data Vital Signs (Past 12 Hours) Vital Signs Temp Pulse Resp BP BP Pulse Ox 09/25/19 11:20 98.8 F 69 18 143/83 H 96 09/25/19 11:00 70 20 96 09/25/19 07:10 99.3 F 63 20 119/76 96 09/25/19 06:45 63 20 98 09/25/19 04:18 99.9 F H 65 18 127/63 90 09/25/19 03:10 63 18 99 PG Care Time/CCT Total # of Minutes Spent Total Time Spent with Patient: Total time spent 35 minutes with greater than 50% of the time evaluating patient's pain, sedation and collaborating with attending physician on unit. 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
[2019-09-25] MEDS: cefTRIAXone SODIUM 2,000 MG in DEXTROSE 5% 50 ML IV SCH (14:10)
[2019-09-25] MEDS: DOXYCYCLINE HYCLATE 100 MG in DEXTROSE 5% 100 ML IV SCH (14:58)
[2019-09-25] MEDS: MoRPHine SULFATE CR 15 MG TABCR PO SCH (18:18)
[2019-09-25] MEDS: MoRPHine SULFATE CR 60 MG TABCR PO SCH (18:18)
[2019-09-25] MEDS: TAMSULOSIN HCL 0.4 MG CAP PO SCH (20:41)
[2019-09-26] MEDS: MoRPHine SULFATE CR 15 MG TABCR PO SCH ×5 (01:31→18:26)
[2019-09-26] MEDS: MoRPHine SULFATE CR 60 MG TABCR PO SCH ×5 (01:31→18:26)
[2019-09-26] MEDS: DOXYCYCLINE HYCLATE 100 MG in DEXTROSE 5% 100 ML IV SCH ×2 (02:23→14:08)
[2019-09-26] MEDS: ALBUT/IPRATROP 3MG/0.5MG NEB 3 ML VIAL NEB SCH ×2 (03:19→06:50)
[2019-09-26 06:10] LABS: Hematocrit (blood only) 28.6 % (42-52); Hemoglobin 8.3 g/dL (14.0-18.0); Mean Corpuscular Volume 75.7 fL (80-100); Mean Platelet Volume 10.3 fL (7.4-10.4); Platelet Count 327 K/uL (130-400); RDW Coefficient of Variation 20.5 % (11.5-14.5); RDW Standard Deviation 55.3 fL (36.4-46.3); Red Blood Count 3.78 M/uL (4.7-6.1); White Blood Count 25.23 K/uL (4.8-10.8)
[2019-09-26] MEDS: LEVOTHYROXINE SODIUM 200 MCG TABLET PO SCH (06:37)
[2019-09-26] MEDS: METOPROLOL TARTRATE 25 MG TAB PO SCH ×3 (06:38→21:56)
[2019-09-26 06:46] LABS: Albumin Level 1.5 gm/dl (3.4-5.0); BUN Creatinine Ratio 13.9 (10-20); Calcium 7.7 mg/dl (8.5-10.1); Creatinine Clr Calc Pharmacy 112.7 ml/min; Est GFR (African American) 110.6; Est GFR (Non-African American) 95.4; Potassium 3.9 mmol/L (3.5-5.1)
[2019-09-26 06:49] LABS: Albumin Globulin Ratio 0.3 (0.9-2); Bilirubin,Total 0.6 mg/dl (0.2-1); Globulin 5.4 gm/dl (2.5-4.0); Total Protein 6.9 gm/dl (6.4-8.2)
[2019-09-26] MEDS: SUCRALFATE 1 GM/10 ML UDC PO SCH ×2 (09:23→21:55)
[2019-09-26] MEDS: PANTOprazole 40 MG TAB PO SCH ×2 (09:23→21:56)
[2019-09-26] MEDS: LACTULOSE SYRUP 20 GM/30 ML UDC PO SCH ×3 (09:23→21:55)
[2019-09-26] MEDS: MAGNESIUM OXIDE 400 MG TAB PO SCH ×2 (09:26→21:56)
[2019-09-26] MEDS: POLYETHYLENE (MIRALAX) 17 GM PACK PO SCH (09:29)
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
[2019-09-26] MEDS: cefTRIAXone SODIUM 2,000 MG in DEXTROSE 5% 50 ML IV SCH (14:07)
--- NOTE | 2019-09-26 14:13 | Palliative Care Progress Note ---
Date of Service September 26, 2019 Assessment & Plan (1) Cancer related pain: Briefly the patient is a 69-year-old incarcerated male who presented to the hospital on 09/15 with nausea vomiting and anemia. Patient's hemoglobin was 7.4-a drop from 11.2 a month prior, has a history of MALT of the stomach. Patient went into acute respiratory distress requiring intubation on 09/16 along with pressors. Patient was extubated and transferred to the floor. Patient is currently on O2 at 4 -6L nasal cannula. Past medical history significant for cirrhosis, history of renal cell CA status post nephrectomy, hypertension, HLD, CAD, PVD, hypothyroidism, chronic sinusitis-status post surgery x2 and COPD. Asked to assist with narcotic pain medications. Patient's ammonia level was elevated at 69-repeat today was 24-this may have contributed to his altered mental status on admission. Of note his albumin is 1.4. Patient was transfused for hemoglobin of 7.4, hemoglobin stable at 8.3. -Patient seen and examined in room 259. Patient was awake, more alert, did not doze off during visit. -Patient reports he is not experiencing any sedation -The patient's QTc is decreasing. On admission it was 429, then 495 and down to 424 on 09/21. -As previously mentioned, the half life of Methadone can range anywhere from 12- 59 hours. His last dose of Methadone was 09/21 at 0900. -He stated that he was on Imbruvica for the past 3 months - plan was for 6 months of treatment -For now, he wishes to remain a full code. -Palliative care will follow while inpatient. 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 (5) Anemia: Following CBCs, status post transfusion, hemoglobin stable at 8.3 Subjective Patient awake and alert, no acute distress. Patient not drowsy at all when seen just after lunchtime. Patient did not require any PRN medications for pain or discomfort Patient's last dose of methadone was on 09/21 at 0900 -methadone discontinued due to prolonged QTc early on in his treatment. Patient's MS Contin was calculated based on his prior OxyContin requirements and then decreased by 25%, was still sedated on 100 mg 4 times daily-further reduced his dose by 10%-sedation improved. Pain control at this time is adequate, patient eating well, has a good appetite. Review of Systems Review of Systems: Patient denies fever, chills, chest pain or shortness of breath Abdominal pain control acceptable Physical Exam Physical Exam: PE: Awake and alert, NAD HEENT: EOMI, hearing within normal limits Respirations: Unlabored, clear breath sounds CV: Regular rate Abdomen: Distended, soft, minimal tenderness with palpation Neuro: Alert and oriented. 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
[2019-09-26] MEDS: TAMSULOSIN HCL 0.4 MG CAP PO SCH (21:56)
[2019-09-27] MEDS ORDERED: MoRPHine SULFATE CR 15 MG TABCR PO SCH
[2019-09-27] MEDS ORDERED: MoRPHine SULFATE CR 60 MG TABCR PO SCH
[2019-09-27] MEDS: DOXYCYCLINE HYCLATE 100 MG in DEXTROSE 5% 100 ML IV SCH ×2 (02:22→13:58)
[2019-09-27] MEDS: ALBUT/IPRATROP 3MG/0.5MG NEB 3 ML VIAL NEB PRN (02:36)
[2019-09-27] MEDS: METOPROLOL TARTRATE 25 MG TAB PO SCH ×3 (06:16→21:17)
[2019-09-27 06:28] LABS: Hematocrit (blood only) 25.8 % (42-52); Hemoglobin 7.5 g/dL (14.0-18.0); Mean Corpuscular Hemoglobin 22.3 pg (25-34); Mean Corpuscular Hgb Conc 29.1 g/dL (32-36); Mean Corpuscular Volume 76.6 fL (80-100); Mean Platelet Volume 10.7 fL (7.4-10.4); Nucleated RBC # (auto) 0.07 K/uL (0-0); Nucleated RBC % (auto) 0.3 %; Platelet Count 332 K/uL (130-400); RDW Coefficient of Variation 20.9 % (11.5-14.5); RDW Standard Deviation 57.6 fL (36.4-46.3); Red Blood Count 3.37 M/uL (4.7-6.1); White Blood Count 20.33 K/uL (4.8-10.8)
[2019-09-27] MEDS: LEVOTHYROXINE SODIUM 200 MCG TABLET PO SCH (06:29)
[2019-09-27] MEDS: MoRPHine SULFATE CR 15 MG TABCR PO SCH ×3 (06:30→18:00)
[2019-09-27] MEDS: MoRPHine SULFATE CR 60 MG TABCR PO SCH ×3 (06:30→18:00)
[2019-09-27 08:48] LABS: Anisocytosis Present; Basophils # (auto) 0.08 K/uL (0-0.2); Basophils % (auto) 0.4 %; Eosinophils # (auto) 0.38 K/uL (0-0.5); Eosinophils % (auto) 1.9 %; Hypochromasia Present; Immature Granulocytes % (auto) 0.5 %; Lymphocytes # (auto) 3.93 K/uL (1.2-3.4); Lymphocytes % (auto) 19.3 %; Microcytosis Present; Monocytes # (auto) 2.55 K/uL (0.11-0.59); Monocytes % (auto) 12.5 %; Neutrophils # (auto) 13.29 K/uL (1.4-6.5); Neutrophils % (auto) 65.4 %; Target Cells 1+
[2019-09-27] MEDS: SUCRALFATE 1 GM/10 ML UDC PO SCH ×2 (09:27→21:17)
[2019-09-27] MEDS: LACTULOSE SYRUP 20 GM/30 ML UDC PO SCH ×3 (09:27→21:17)
[2019-09-27] MEDS: PANTOprazole 40 MG TAB PO SCH ×2 (09:27→21:17)
[2019-09-27] MEDS: MAGNESIUM OXIDE 400 MG TAB PO SCH ×2 (09:29→21:17)
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
[2019-09-27] MEDS ORDERED: OPTIRAY 320 125ml IV PRN (11:22)
--- NOTE | 2019-09-27 11:44 | CT Scan Report ---
CT ANGIOGRAM OF THE CHEST CLINICAL HISTORY: Hypoxia. COMPARISON STUDY: Chest CT scans dated 09/18/2019 and 04/18/2017. Chest x-ray dated 09/25/2019. TECHNIQUE: Following the IV administration of 84 cc of Optiray 320, CT angiogram of the chest was per formed from the upper abdomen to the thoracic inlet utilizing the pulmonary embolus protocol. Images are reviewed in the axial, sagittal, and coronal planes. 3-D MIPS images are created and assessed. IV contrast was administered without complication. A dose lowering technique was utilized adhering to the principles of ALARA. The examination is degraded by motion artifact. CT DOSE: 627.79 mGy.cm FINDINGS: Thyroid: Atrophic. Thoracic aorta: There is mild atherosclerotic calcification of the thoracic aorta. There is mild aneu rysmal dilatation of the ascending thoracic aorta which measures up to 4.0 cm in diameter. The remain tony of the thoracic aorta is normal in caliber, and the arch demonstrates standard 3-vessel anatomy. No dissection is seen. Pulmonary vasculature: The main pulmonary arteries are mildly dilated suggesting pulmonary artery hyp ertension. Question artifact versus a subsegmental pulmonary embolus in the left lower lobe on image #84. There are no filling defects identified in main, lobar, or segmental pulmonary branches to sugge st pulmonary embolus. Note that evaluation of the peripheral branches in the lower lobes is degraded by motion artifact. Heart: The heart is top normal in size and without pericardial effusion. The coronary arteries are de nsely calcified. Lungs and pleural spaces: Emphysematous change is noted. Biapical scarring is similar to previous. Th e trachea is clear. Secretions are noted within the lower lobe bronchi. Peribronchial thickening is s een in the lower lobes. There are scattered calcified granulomas. Dependent patchy airspace consolida tion is seen at both lung bases. Trace pleural effusions are noted. Mediastinum: Mildly enlarged mediastinal nodes are identified. A precarinal node on image #190 measur es 1.5 cm in short axis. Prevascular nodes measure up to 1.1 cm in short axis. Melodie: Mildly enlarged hilar nodes measure up to 1.3 cm in short axis. Axillae: There is no axillary lymphadenopathy. Upper abdomen: There is a moderate hiatal hernia. Fluid fills the esophagus to the level of the aorti c arch. The liver is cirrhotic in morphology and heterogeneous in attenuation. There is nodularity of the surface contour. A 5 mm nonobstructing calculus is present in the upper pole the right kidney. T here are calcified gallstones. Gallbladder wall thickening is nonspecific and may be related to cirrh osis. The spleen is not identified and presumed surgically absent. Splenules are noted in the left up per quadrant. Numerous small metallic foreign bodies are present in the left upper abdomen, the left chest wall, and the left thorax. Skeletal structures: The skeletal structures are osteopenic. Degenerative change and mild scoliosis a re noted in the thoracic spine. Advanced arthritic change is seen in the shoulders, right greater brady n left. There are healed left-sided rib fractures. No lytic or blastic bony lesions are seen. IMPRESSION: 1. Question artifact versus a tiny subsegmental pulmonary embolus within a peripheral branch of the l eft lower lobe pulmonary artery. 2. There is no evidence of pulmonary embolus in the main, lobar, or segmental pulmonary arteries. 3. Emphysema. 4. Patchy dependent airspace consolidation is present at both lung bases. This is typical in appearan ce for pneumonia/aspiration pneumonitis, and the lung bases have cleared as compared to 09/18/2019. Con tinued radiographic follow-up to resolution is recommended. 5. Trace pleural effusions. 6. There is a moderate hiatal hernia. The Esophagus is distended and filled with fluid/debris to the level of the aortic arch. Note that this may place the patient at risk for aspiration. 7. Mildly enlarged mediastinal and hilar lymph nodes are likely on a reactive basis. 8. Cirrhotic liver morphology. 9. Cholelithiasis and right-sided nephrolithiasis. Mild gallbladder wall thickening is nonspecific an d likely due to cirrhosis. Clinical correlation will be required. 10. There is mild aneurysmal dilatation of the ascending thoracic aorta which measures up to 4 cm. 11. Additional findings as above. ACT 112: Negative or not required by law. Electronically signed by: Guevara Bryson M.D. 09/27/2019 11:43 AM
[2019-09-27] MEDS: cefTRIAXone SODIUM 2,000 MG in DEXTROSE 5% 50 ML IV SCH (13:16)
[2019-09-27] MEDS: POLYETHYLENE (MIRALAX) 17 GM PACK PO SCH (13:24)
[2019-09-27] MEDS: ERTAPENEM SODIUM 1,000 MG in SODIUM CHLORIDE 0.9% 50 ML IV SCH (17:56)
[2019-09-27] MEDS: TAMSULOSIN HCL 0.4 MG CAP PO SCH (21:17)
[2019-09-28] MEDS: MoRPHine SULFATE CR 60 MG TABCR PO SCH ×5 (00:37→23:22)
[2019-09-28] MEDS: MoRPHine SULFATE CR 15 MG TABCR PO SCH ×2 (00:37→06:00)
[2019-09-28] MEDS: LEVOTHYROXINE SODIUM 200 MCG TABLET PO SCH (06:00)
[2019-09-28] MEDS: METOPROLOL TARTRATE 25 MG TAB PO SCH ×3 (06:00→21:18)
[2019-09-28 06:08] LABS: Hematocrit (blood only) 26.1 % (42-52); Hemoglobin 7.8 g/dL (14.0-18.0); Mean Corpuscular Hgb Conc 29.9 g/dL (32-36); Mean Platelet Volume 10.8 fL (7.4-10.4); Platelet Count 355 K/uL (130-400); RDW Coefficient of Variation 21.1 % (11.5-14.5); RDW Standard Deviation 58.5 fL (36.4-46.3); Red Blood Count 3.39 M/uL (4.7-6.1); Reticulocyte % 2.1 % (0.5-2.0); Reticulocytes # 0.07 10^6/uL (0.02-0.10)
[2019-09-28 06:44] LABS: BUN Creatinine Ratio 11.8 (10-20); Calcium 7.8 mg/dl (8.5-10.1); Creatinine Clr Calc Pharmacy 93.1 ml/min; Est GFR (African American) 106.1; Est GFR (Non-African American) 91.5; Potassium 3.5 mmol/L (3.5-5.1)
[2019-09-28 06:49] LABS: Ferritin 44.6 ng/ml (8-388)
[2019-09-28 06:54] LABS: Basophilic Stippling 1+; Basophils # (auto) 0.08 K/uL (0-0.2); Basophils % (auto) 0.4 %; Eosinophils # (auto) 0.46 K/uL (0-0.5); Eosinophils % (auto) 2.4 %; Immature Granulocytes # (auto) 0.11 K/uL (0.00-0.02); Immature Granulocytes % (auto) 0.6 %; Lymphocytes # (auto) 4.84 K/uL (1.2-3.4); Lymphocytes % (auto) 25.3 %; Monocytes # (auto) 2.85 K/uL (0.11-0.59); Monocytes % (auto) 14.9 %; Neutrophils # (auto) 10.76 K/uL (1.4-6.5); Neutrophils % (auto) 56.4 %; Polychromasia 1+; Target Cells 1+
[2019-09-28] MEDS ORDERED: SODIUM CHLORIDE 0.9% 250 ML IV PRN (07:14)
[2019-09-28] MEDS ORDERED: FUROSEMIDE 20 MG in SYRINGE 0 ML IV PRN (07:16)
[2019-09-28] MEDS: MAGNESIUM OXIDE 400 MG TAB PO SCH ×2 (08:40→21:18)
[2019-09-28] MEDS: PANTOprazole 40 MG TAB PO SCH ×2 (08:40→21:18)
[2019-09-28] MEDS: LACTULOSE SYRUP 20 GM/30 ML UDC PO SCH ×3 (08:40→21:17)
[2019-09-28] MEDS: SUCRALFATE 1 GM/10 ML UDC PO SCH ×2 (08:41→21:17)
[2019-09-28] MEDS: POLYETHYLENE (MIRALAX) 17 GM PACK PO SCH (08:42)
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
[2019-09-28] MEDS: ERTAPENEM SODIUM 1,000 MG in SODIUM CHLORIDE 0.9% 50 ML IV SCH (17:31)
[2019-09-28] MEDS: TAMSULOSIN HCL 0.4 MG CAP PO SCH (21:18)
[2019-09-29] MEDS: MoRPHine SULFATE CR 60 MG TABCR PO SCH ×4 (00:35→17:58)
[2019-09-29] MEDS ORDERED: MoRPHine SULFATE CR 15 MG TABCR PO ONE (01:30)
[2019-09-29] MEDS: METOPROLOL TARTRATE 25 MG TAB PO SCH ×3 (06:02→20:58)
[2019-09-29] MEDS: LEVOTHYROXINE SODIUM 200 MCG TABLET PO SCH (06:04)
[2019-09-29] MEDS: MAGNESIUM OXIDE 400 MG TAB PO SCH ×2 (08:53→20:57)
[2019-09-29] MEDS: POLYETHYLENE (MIRALAX) 17 GM PACK PO SCH (08:53)
[2019-09-29] MEDS: SUCRALFATE 1 GM/10 ML UDC PO SCH ×2 (08:53→20:56)
[2019-09-29] MEDS: PANTOprazole 40 MG TAB PO SCH ×2 (08:53→20:57)
[2019-09-29] MEDS: LACTULOSE SYRUP 20 GM/30 ML UDC PO SCH ×3 (08:54→20:57)
[2019-09-29 09:58] LABS: Hematocrit (blood only) 27.3 % (42-52); Hemoglobin 8.4 g/dL (14.0-18.0); Mean Corpuscular Hemoglobin 23.4 pg (25-34); Mean Corpuscular Hgb Conc 30.8 g/dL (32-36); Platelet Count 361 K/uL (130-400); RDW Standard Deviation 57.3 fL (36.4-46.3); Red Blood Count 3.59 M/uL (4.7-6.1); White Blood Count 14.14 K/uL (4.8-10.8)
[2019-09-29 10:06] LABS: Base Excess VBG 3.5 mEq/L; HCO3 VBG 28 mmol/L; PCO2 VBG 42 mmHg (38-50); PO2 VBG 33 mmHg; pH VBG 7.44 (7.36-7.41)
[2019-09-29 10:07] LABS: Oxygen Saturation VBG < 60.0 %
[2019-09-29 10:35] LABS: Albumin Level 1.4 gm/dl (3.4-5.0); BUN Creatinine Ratio 11.5 (10-20); Calcium 7.7 mg/dl (8.5-10.1); Est GFR (African American) 105.5; Magnesium 1.7 mg/dl (1.8-2.4); Potassium 3.7 mmol/L (3.5-5.1)
[2019-09-29 10:38] LABS: Albumin Globulin Ratio 0.3 (0.9-2); Bilirubin,Total 0.4 mg/dl (0.2-1); Globulin 5.5 gm/dl (2.5-4.0); Phosphorus 2.5 mg/dl (2.5-4.9); Total Protein 6.9 gm/dl (6.4-8.2)
[2019-09-29 10:50] LABS: ALC (manual) 5.09 K/uL (1.2-3.4); ANC (manual) 7.42 K/uL (1.4-6.5); Anisocytosis Present; Basophils # (manual) 0.25 K/uL (0-0.2); Basophils % (manual) 1.8 %; Eosinophils # (manual) 0.75 K/uL (0-0.5); Eosinophils % (manual) 5.3 %; Lymphocytes # (manual) 2.86 K/uL (1.2-3.4); Lymphocytes % (manual) 20.2 %; Monocytes # (manual) 0.62 K/uL (0.11-0.59); Monocytes % (manual) 4.4 %; Neutrophils # (manual) 7.42 K/uL (1.4-6.5); Neutrophils % (manual) 52.5 %; Plasma Cells # (manual) 0.25 K/uL (0-0); Plasma Cells % (manual) 1.8 %; Reactive Lymphocytes # (manual) 1.98 K/uL; Spherocytes 1+; Target Cells 1+
[2019-09-29] MEDS: MoRPHine SULFATE CR 15 MG TABCR PO SCH ×2 (12:37→17:58)
[2019-09-29] MEDS: MAGNESIUM SULFATE / D5W 1 GM/100 ML BAG IV SCH ×2 (12:38→13:55)
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
[2019-09-29] MEDS ORDERED: FUROSEMIDE 20 MG in SYRINGE 0 ML IV ONE (13:00)
--- NOTE | 2019-09-29 14:30 | Palliative Care Progress Note ---
Date of Service September 29, 2019 Assessment & Plan (1) Cancer related pain: Briefly the patient is a 69-year-old incarcerated male who presented to the hospital on 09/15 with nausea vomiting and anemia. Patient's hemoglobin was 7.4-a drop from 11.2 a month prior, has a history of MALT of the stomach. Patient went into acute respiratory distress requiring intubation on 09/16 along with pressors. Patient was extubated and transferred to the floor. Patient is currently on O2 at 4 -6L nasal cannula. Past medical history significant for cirrhosis, history of renal cell CA status post nephrectomy, hypertension, HLD, CAD, PVD, hypothyroidism, chronic sinusitis-status post surgery x2 and COPD. Asked to assist with narcotic pain medications. Patient's ammonia level was elevated at 69-repeat was 24-this may have contributed to his altered mental status on admission. Of note his albumin is 1.4. Patient was transfused for hemoglobin of 7.4, hemoglobin stable at 8.4. -Patient seen and examined in room 259. Patient was awake, more alert, did not doze off during visit. -Patient reports he is not experiencing any sedation -The patient's QTc is decreasing. On admission it was 429, then 495 and down to 424 on 09/21. -As previously mentioned, the half life of Methadone can range anywhere from 12- 59 hours. His last dose of Methadone was 09/21 at 0900 -patient not sedated on current MS Contin dosing -He stated that he was on Imbruvica for the past 3 months - plan was for 6 months of treatment -For now, he wishes to remain a full code -patient stated he would want to discuss with his mother and would follow her advice. -Palliative care will follow while inpatient. 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 Patient is not a candidate for methadone therapy (5) Anemia: Following CBCs, status post transfusion, hemoglobin stable at 8.3 Subjective Patient seen and examined in room 259, no acute distress Patient did request 1 PRN oxycodone this a.m.for increased pain. Collaborated with attending physician, Dr. Deepak Ellis-patient doing well on MS Contin 90 mg every 6 hours. Patient with ESBL Klebsiella in the sputum- sensitive to ertapenem. Patient's white count decreased while on ertapenem, started to rise again after being switched off ertapenem. Patient again restarted on ertapenem on 09/26 with corresponding decrease in his white count.. Patient's O2 requirement is decreasing, low O2 levels have been noted when patient is sleep-suspect CASS. Patient's current pain appears well-controlled on current regime. Mental status has returned to baseline-ammonia level within normal limits on 09/25-on lactulose 3 times daily. -Discussed CODE STATUS with patient-patient states he would want to talk to his mother and would follow her advice. He wishes to remain a full code for now. Review of Systems Review of Systems: Patient denies fever, chills, chest pain, increased shortness of breath, or worsening abdominal pain Positive for increased lower extremity edema Physical Exam Physical Exam: PE: Awake and alert, not sedated HEENT: EOMI, hearing within normal limits Respirations: Breath sounds clear, unlabored CV: Regular rate, 1+ pitting edema lower extremities Abdomen: Distended, mild discomfort with light palpation Neuro: Alert and oriented Results & Data Vital Signs (Past 12 Hours) Vital Signs Temp Pulse Pulse Resp BP Pulse Ox 09/29/19 11:43 98.8 F 88 18 112/68 92 09/29/19 09:36 87 L 09/29/19 07:50 98.4 F 66 18 117/72 94 09/29/19 07:18 65 09/29/19 04:14 63 09/29/19 03:00 98.2 F 68 16 111/68 90 PG Care Time/CCT Total # of Minutes Spent Total Time Spent with Patient: Total time spent 35 min with greater than 50% of the time at bedside assessing patient's current comfort status as well as addressing CODE STATUS. Collaborated with attending physician on unit. 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
[2019-09-29] MEDS: ERTAPENEM SODIUM 1,000 MG in SODIUM CHLORIDE 0.9% 50 ML IV SCH (17:58)
[2019-09-29] MEDS: TAMSULOSIN HCL 0.4 MG CAP PO SCH (20:57)
[2019-09-30] MEDS: MoRPHine SULFATE CR 15 MG TABCR PO SCH ×5 (00:15→23:57)
[2019-09-30] MEDS: MoRPHine SULFATE CR 60 MG TABCR PO SCH ×5 (00:16→23:57)
[2019-09-30 06:20] LABS: Hematocrit (blood only) 26.9 % (42-52); Hemoglobin 8.2 g/dL (14.0-18.0); Mean Corpuscular Hemoglobin 23.1 pg (25-34); Mean Corpuscular Hgb Conc 30.5 g/dL (32-36); Mean Corpuscular Volume 75.8 fL (80-100); Mean Platelet Volume 10.6 fL (7.4-10.4); Platelet Count 392 K/uL (130-400); RDW Coefficient of Variation 21.4 % (11.5-14.5); RDW Standard Deviation 59.1 fL (36.4-46.3); Red Blood Count 3.55 M/uL (4.7-6.1); White Blood Count 15.68 K/uL (4.8-10.8)
[2019-09-30] MEDS: METOPROLOL TARTRATE 25 MG TAB PO SCH ×3 (06:26→22:28)
[2019-09-30] MEDS: LEVOTHYROXINE SODIUM 200 MCG TABLET PO SCH (06:27)
[2019-09-30 06:53] LABS: Albumin Level 1.4 gm/dl (3.4-5.0); BUN Creatinine Ratio 10.8 (10-20); Calcium 7.8 mg/dl (8.5-10.1); Creatinine Clr Calc Pharmacy 87.8 ml/min; Est GFR (African American) 103.5; Est GFR (Non-African American) 89.3; Magnesium 1.8 mg/dl (1.8-2.4); Potassium 3.7 mmol/L (3.5-5.1)
[2019-09-30 06:56] LABS: Albumin Globulin Ratio 0.3 (0.9-2); Bilirubin,Total 0.3 mg/dl (0.2-1); Globulin 5.5 gm/dl (2.5-4.0); Phosphorus 2.6 mg/dl (2.5-4.9); Total Protein 6.9 gm/dl (6.4-8.2)
--- NOTE | 2019-09-30 07:12 | XRay Report ---
XR chest 1V portable CLINICAL HISTORY: follow lung infiltrates dyspnea COMPARISON STUDY: 09/25/2019 FINDINGS: Central catheter remains in superior vena cava. Prominent pulmonary vasculature persists. Mild chronic elevation right hemidiaphragm. Somewhat limited evaluation of the diaphragms compared to the prior exam. This potentially relates to slightly progressive parenchymal infiltrative change. IMPRESSION: 1. Slightly progressive bibasilar parenchymal infiltrative change versus slightly progressive bibasil ar pulmonary edema. 2. Study is otherwise unchanged. ACT 112: Negative or not required by law. The above report was generated using voice recognition software. It may contain grammatical, syntax or spelling errors. Electronically signed by: Shay Copeland M.D. 09/30/2019 7:11 AM
[2019-09-30 07:19] LABS: ALC (manual) 4.59 K/uL (1.2-3.4); ANC (manual) 7.43 K/uL (1.4-6.5); Anisocytosis Present; Eosinophils # (manual) 1.49 K/uL (0-0.5); Eosinophils % (manual) 9.5 %; Hypochromasia Present; Lymphocytes # (manual) 2.57 K/uL (1.2-3.4); Lymphocytes % (manual) 16.4 %; Monocytes # (manual) 2.16 K/uL (0.11-0.59); Monocytes % (manual) 13.8 %; Neutrophils # (manual) 7.43 K/uL (1.4-6.5); Neutrophils % (manual) 47.4 %; Polychromasia 1+; Reactive Lymphocytes # (manual) 2.02 K/uL; Reactive Lymphocytes % (manual) 12.9 %; Target Cells 2+
[2019-09-30] MEDS ORDERED: MAGNESIUM SULFATE / D5W 1 GM/100 ML BAG IV ONE (07:30)
[2019-09-30] MEDS: MAGNESIUM OXIDE 400 MG TAB PO SCH ×2 (08:18→20:35)
[2019-09-30] MEDS: SUCRALFATE 1 GM/10 ML UDC PO SCH ×2 (08:18→20:35)
[2019-09-30] MEDS: LACTULOSE SYRUP 20 GM/30 ML UDC PO SCH ×4 (08:18→20:35)
[2019-09-30] MEDS: PANTOprazole 40 MG TAB PO SCH ×2 (08:19→20:36)
[2019-09-30] MEDS: POLYETHYLENE (MIRALAX) 17 GM PACK PO SCH (08:19)
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
[2019-09-30] MEDS ORDERED: FUROSEMIDE 20 MG in SYRINGE 0 ML IV ONE (11:00)
[2019-09-30] MEDS ORDERED: guaiFENesin 600 MG TABCR PO PRN (15:45)
--- NOTE | 2019-09-30 15:45 | Pulmonology Progress Note ---
Date of Service September 30, 2019 Assessment & Plan (1) Aspiration pneumonia: Impression: 69-year-old male with complicated history including MALT lymphoma currently undergoing chemotherapy admitted with severe septic shock and pneumonia. He is much better now but continues to have basilar opacities. He did undergo a bedside swallow evaluation by speech therapy during this admission which demonstrated no evidence of aspiration. I suspect his clinical worsening may be related to de-escalation of his antimicrobial therapy as he was placed on a regimen which would be inadequate for his extended spectrum beta-lactamase producing Klebsiella and the Citrobacter freundii. He appears better on his current regiment. There is likely some underlying bronchiectasis. Recommendations: 1. Hypoxemic respiratory failure: Multifactorial. Continue to wean oxygen as tolerated. With target oxygen saturations 88 to 90%. He is doing well on room air currently. 2. Pneumonia: As per my previous note I would recommend 10 to 14 days of ertapenam to cover the Citrobacter and E BSL producing Klebsiella. 3. Abnormal chest x-ray: This appears to be stable. Again cannot rule out component of aspiration especially given his high doses of narcotics. Clinical correlation and continued aspiration precautions recommended. 4. Potential bronchiectasis: The patient does relate a history of thick phlegm production. Would pursue trials of Mucinex as well as hypertonic saline. 5. COPD: The patient is not bronchospastic currently. Would not recommend steroids. As needed bronchodilators recommended. We will follow-up tomorrow to see how he is doing. Feel free to contact us with questions or concerns (2) Respiratory failure with hypoxia: Admission and Anticipated Discharge Date Admission Date: September 16, 2019 Subjective Asked by hospitalist to evaluate this patient with pulmonary infiltrates. The patient is known to me from earlier in this admission when I cared for him during his intensive care unit stay. He was admitted with multiorgan system dysfunction and septic shock and was found to have an ESBL Klebsiella pneumonia. When he left the ICU it was recommended that he be maintained on ertapenem due to the nature of his infection and be treated for approximately 10 days to 2 weeks. ID consultation is not available at our institution. I last saw the patient on 09/19. On 09/25/2019 patient was transitioned off ertapenem to ceftriaxone and doxycycline. White blood cell count increased and on the he was transitioned back to ertapenem. He remains on ertapenem and is afebrile. His white count had increased up to 20,000 but is currently decreasing down to about 15,000. The patient apparently was on the floor and intermittently noted to be hypoxemic. He continues to cough and expectorate phlegm. He had a chest x-ray performed which revealed a questionable progressive infiltrates in the bases. This prompted a request for pulmonary to reengage on his case. Patient is seen and examined. He is currently not using oxygen and has an ox ygen saturation of 91% on room air. He reports that he is coughing and expectorating phlegm. He does have known bronchiectatic changes. Review of Systems Review of Systems: All systems reviewed & are unremarkable except as noted in HPI & below Physical Exam Constitutional: cooperative Eyes: PERRL, conjunctivae normal, anicteric sclerae EOM intact bilaterally ENMT: external ear and nose normal, oropharynx normal Neck: trachea midline, no thyromegaly normal visual inspection Respiratory: normal respiratory effort Auscultation: + crackles, + rhonchi and + wheezes Cardiovascular: Rate/Rhythm: regular rate Gastrointestinal (Abdomen): normal bowel sounds, soft, nontender, no hepatosplenomegaly Musculoskeletal: Head/Neck/Chest: normocephalic and head atraumatic Neurologic: PERRL, EOMI, accommodation nl, no face palsy, no dysarthria moves all extremities Psychiatric: A+Ox3, euthymic affect Results & Data Results & Data ([facility]) Vital Signs (Past 12 Hours) Vital Signs Temp Pulse Pulse Pulse Resp BP Pulse Ox 09/30/19 11:43 37.1 C 72 18 139/87 90 09/30/19 11:05 92 09/30/19 11:00 87 L 09/30/19 07:31 37.3 C 62 16 116/70 91 09/30/19 07:21 67 09/30/19 04:00 36.8 C 69 18 116/80 92 Laboratory Results 09/30/19 05:38 09/30/19 05:38 Sputum culture from 09/18/2019 grew Klebsiella pneumonia with Citrobacter fr eundii. Both were resistant to cefepime but sensitive to ertapenem and imipenem Diagnostic Findings CT of the chest from 09/27/2019 was again reviewed. This again demonstrated some bibasilar changes with significant paraseptal and centrilobular emphysematous changes. Most recent chest x-ray does demonstrate basilar hazy opacities. PG Care Time/CCT Total # of Minutes Spent Total Time Spent with Patient: Total time spent is greater than 50% in coor dination of care (as documented) at patient's floor/unit and/or counseling patient: Coding Level of Care Code 03919 Subseq Hosp Care Lvl 3 Diagnoses Aspiration pneumonia J69.0 Respiratory failure with hypoxia J96.91
[2019-09-30] MEDS: ERTAPENEM SODIUM 1,000 MG in SODIUM CHLORIDE 0.9% 50 ML IV SCH (18:30)
[2019-09-30] MEDS: SODIUM CHLOR 7% 4 ML NEB NEB SCH (19:30)
[2019-09-30] MEDS: TAMSULOSIN HCL 0.4 MG CAP PO SCH (20:35)
[2019-10-01] MEDS: METOPROLOL TARTRATE 25 MG TAB PO SCH ×3 (06:05→21:41)
[2019-10-01] MEDS: LEVOTHYROXINE SODIUM 200 MCG TABLET PO SCH (06:05)
[2019-10-01] MEDS: MoRPHine SULFATE CR 15 MG TABCR PO SCH ×3 (06:07→17:01)
[2019-10-01] MEDS: MoRPHine SULFATE CR 60 MG TABCR PO SCH ×3 (06:07→17:01)
[2019-10-01] MEDS: SODIUM CHLOR 7% 4 ML NEB NEB SCH ×2 (07:16→19:02)
[2019-10-01] MEDS: LACTULOSE SYRUP 20 GM/30 ML UDC PO SCH ×3 (08:06→21:38)
[2019-10-01] MEDS: SUCRALFATE 1 GM/10 ML UDC PO SCH ×2 (08:06→21:36)
[2019-10-01] MEDS: POLYETHYLENE (MIRALAX) 17 GM PACK PO SCH (08:06)
[2019-10-01] MEDS: FUROSEMIDE 20 MG TAB PO SCH (08:06)
[2019-10-01] MEDS: PANTOprazole 40 MG TAB PO SCH ×2 (08:06→21:40)
[2019-10-01] MEDS: MAGNESIUM OXIDE 400 MG TAB PO SCH ×2 (08:06→21:39)
[2019-10-01] MEDS ORDERED: FUROSEMIDE 40 MG in SYRINGE 0 ML IV ONE (12:58)
[2019-10-01] MEDS ORDERED: ARTIFICIAL TEARS OP PRN (12:58)
[2019-10-01] MEDS ORDERED: POTASSIUM CHLORIDE 20 MEQ TABCR PO STA (12:58)
--- NOTE | 2019-10-01 15:54 | Pulmonology Progress Note ---
Date of Service October 01, 2019 Assessment & Plan (1) Aspiration pneumonia: Impression: 69-year-old male with complicated history including MALT lymphoma currently undergoing chemotherapy admitted with severe septic shock and pneumonia. He is much better now but continues to have basilar opacities. He did undergo a bedside swallow evaluation by speech therapy during this admission which demonstrated no evidence of aspiration. I suspect his clinical worsening may be related to de-escalation of his antimicrobial therapy as he was placed on a regimen which would be inadequate for his extended spectrum beta-lactamase producing Klebsiella and the Citrobacter freundii. He appears better on his current regiment. There is likely some underlying bronchiectasis. Recommendations: 1. Hypoxemic respiratory failure: Multifactorial. Appears resolved currently as the patient is maintaining acceptable oxygen saturations on room air 2. Pneumonia: As per my previous note I would recommend at least 14 days of ertapenam to cover the Citrobacter and E BSL producing Klebsiella. Telephone c onsultation with [facility] may be beneficial given the resistance pattern of the bacteria. Deferred to primary service. 3. Abnormal chest x-ray: This appears to be stable. Again cannot rule out component of aspiration especially given his high doses of narcotics. Clinical correlation and continued aspiration precautions recommended. Would not recommend repeat short-term imaging unless the patient's clinical condition should change 4. Potential bronchiectasis: The patient does relate a history of thick phlegm production. Continue Mucinex and hypertonic saline. The patient does not need to be on these medications long-term. 5. COPD: The patient is not bronchospastic currently. Would not recommend steroids. As needed bronchodilators recommended. Pulmonary remains available to see this patient and follow as needed however given the fact that he is now on oxygen and improving and has a treatment plan in place with regards to antimicrobial therapy, we will sign off for now. Feel free to contact us if we can be of additional assistance (2) Respiratory failure with hypoxia: Admission and Anticipated Discharge Date Admission Date: September 16, 2019 Subjective Patient seen and examined. He states he is feeling better. His cough is less productive. He is no longer short of breath. He has been weaned off oxygen. He remains fairly sedentary and lying in bed for the majority of the day. No new complaints. Review of Systems Review of Systems: Unchanged from prior Physical Exam Constitutional: well developed and cooperative; no acute distress and not ill appearing Eyes: PERRL, conjunctivae normal, anicteric sclerae EOM intact bilaterally ENMT: external ear and nose normal, oropharynx normal Neck: trachea midline, no thyromegaly normal visual inspection Respiratory: normal respiratory effort; no respiratory distress and no retractions Auscultation: + crackles, + rhonchi and + wheezes Cardiovascular: RRR, no murmur, no edema Rate/Rhythm: regular rate Gastrointestinal (Abdomen): normal bowel sounds, soft, nontender, no hepatosplenomegaly Musculoskeletal: Head/Neck/Chest: normocephalic and head atraumatic Extremities: extremities normal to inspection Skin: no rashes, warm and dry Neurologic: PERRL, EOMI, accommodation nl, no face palsy, no dysarthria mo ves all extremities Psychiatric: A+Ox3, euthymic affect Lymphatic: no cervical lymphadenopathy Results & Data Results & Data ([facility]) Vital Signs (Past 12 Hours) Vital Signs Temp Pulse Resp BP Pulse Ox 10/01/19 12:21 36.8 C 68 16 124/71 89 L 10/01/19 07:49 37.0 C 66 16 119/74 89 L 10/01/19 07:17 73 18 89 L 10/01/19 04:12 37.0 C 72 20 114/69 92 Laboratory Results 09/30/19 05:38 09/30/19 05:38 Diagnostic Findings No new films PG Care Time/CCT Total # of Minutes Spent Total Time Spent with Patient: Total time spent is greater than 50% in coordination of care (as documented) at patient's floor/unit and/or counseling patient: Coding Level of Care Code 52929 Subseq Hosp Care Lvl 2 Diagnoses Aspiration pneumonia J69.0 Respiratory failure with hypoxia J96.91
[2019-10-01] MEDS: TRIMETHOPRIM/POLYMYXIN B OP SCH ×2 (16:49→21:39)
[2019-10-01] MEDS: ERTAPENEM SODIUM 1,000 MG in SODIUM CHLORIDE 0.9% 50 ML IV SCH (16:50)
[2019-10-01] MEDS: ALBUT/IPRATROP 3MG/0.5MG NEB 3 ML VIAL NEB PRN (19:00)
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
[2019-10-01] MEDS: LEVALBUTEROL 1.25MG/0.5ML NEB INH SCH (21:36)
[2019-10-01] MEDS: IPRATROPIUM BROMIDE NEB SOLN 0.02% 2.5 ML VIAL INH SCH (21:36)
[2019-10-01] MEDS: TAMSULOSIN HCL 0.4 MG CAP PO SCH (21:38)
[2019-10-02] MEDS: MoRPHine SULFATE CR 15 MG TABCR PO SCH ×4 (00:08→17:05)
[2019-10-02] MEDS: MoRPHine SULFATE CR 60 MG TABCR PO SCH ×4 (00:08→17:05)
[2019-10-02] MEDS: IPRATROPIUM BROMIDE NEB SOLN 0.02% 2.5 ML VIAL INH SCH ×4 (00:45→19:14)
[2019-10-02] MEDS: LEVALBUTEROL 1.25MG/0.5ML NEB INH SCH ×4 (00:45→19:14)
[2019-10-02] MEDS ORDERED: XOPENEX/ATROVENT 1.25mg/0.5MG NEB COMBO NEB SCH (01:00)
[2019-10-02] MEDS: METOPROLOL TARTRATE 25 MG TAB PO SCH ×3 (06:05→21:27)
[2019-10-02] MEDS: LEVOTHYROXINE SODIUM 200 MCG TABLET PO SCH (06:05)
[2019-10-02] MEDS: SODIUM CHLOR 7% 4 ML NEB NEB SCH ×2 (07:23→19:14)
[2019-10-02] MEDS: TRIMETHOPRIM/POLYMYXIN B OP SCH ×4 (07:51→21:25)
[2019-10-02] MEDS: FUROSEMIDE 20 MG TAB PO SCH (07:52)
[2019-10-02] MEDS: PANTOprazole 40 MG TAB PO SCH ×2 (07:52→21:27)
[2019-10-02] MEDS: LACTULOSE SYRUP 20 GM/30 ML UDC PO SCH ×3 (07:52→21:25)
[2019-10-02] MEDS: POLYETHYLENE (MIRALAX) 17 GM PACK PO SCH (07:52)
[2019-10-02] MEDS: SUCRALFATE 1 GM/10 ML UDC PO SCH ×2 (07:52→21:26)
[2019-10-02] MEDS: MAGNESIUM OXIDE 400 MG TAB PO SCH ×2 (07:52→21:26)
[2019-10-02 10:35] LABS: BUN Creatinine Ratio 9.9 (10-20); Calcium 7.8 mg/dl (8.5-10.1); Creatinine Clr Calc Pharmacy 79.5 ml/min; Est GFR (African American) 94.4; Est GFR (Non-African American) 81.5; Potassium 3.9 mmol/L (3.5-5.1)
[2019-10-02] MEDS: ERTAPENEM SODIUM 1,000 MG in SODIUM CHLORIDE 0.9% 50 ML IV SCH (17:05)
[2019-10-02] MEDS ORDERED: FUROSEMIDE 20 MG TAB PO ONE (20:16)
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
[2019-10-02] MEDS: TAMSULOSIN HCL 0.4 MG CAP PO SCH (21:26)
[2019-10-03] MEDS: MoRPHine SULFATE CR 15 MG TABCR PO SCH ×5 (00:02→23:52)
[2019-10-03] MEDS: MoRPHine SULFATE CR 60 MG TABCR PO SCH ×5 (00:02→23:52)
[2019-10-03] MEDS: LEVALBUTEROL 1.25MG/0.5ML NEB INH SCH ×4 (00:59→20:06)
[2019-10-03] MEDS: IPRATROPIUM BROMIDE NEB SOLN 0.02% 2.5 ML VIAL INH SCH ×4 (00:59→20:05)
[2019-10-03] MEDS: METOPROLOL TARTRATE 25 MG TAB PO SCH ×3 (06:08→21:10)
[2019-10-03] MEDS: LEVOTHYROXINE SODIUM 200 MCG TABLET PO SCH (06:09)
[2019-10-03] MEDS: SODIUM CHLOR 7% 4 ML NEB NEB SCH ×2 (07:17→20:06)
[2019-10-03] MEDS: FUROSEMIDE 20 MG TAB PO SCH (09:00)
[2019-10-03] MEDS: LACTULOSE SYRUP 20 GM/30 ML UDC PO SCH ×3 (09:00→21:08)
[2019-10-03] MEDS: MAGNESIUM OXIDE 400 MG TAB PO SCH ×2 (09:01→21:09)
[2019-10-03] MEDS: SUCRALFATE 1 GM/10 ML UDC PO SCH ×2 (09:01→21:08)
[2019-10-03] MEDS: TRIMETHOPRIM/POLYMYXIN B OP SCH ×4 (09:01→21:17)
[2019-10-03] MEDS: PANTOprazole 40 MG TAB PO SCH ×2 (09:01→21:09)
[2019-10-03] MEDS: POLYETHYLENE (MIRALAX) 17 GM PACK PO SCH (09:02)
[2019-10-03] MEDS: ERTAPENEM SODIUM 1,000 MG in SODIUM CHLORIDE 0.9% 50 ML IV SCH (18:09)
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
[2019-10-03] MEDS: TAMSULOSIN HCL 0.4 MG CAP PO SCH (21:09)
[2019-10-03] MEDS: guaiFENesin 600 MG TABCR PO SCH (21:09)
[2019-10-04] MEDS: IPRATROPIUM BROMIDE NEB SOLN 0.02% 2.5 ML VIAL INH SCH ×4 (01:27→19:36)
[2019-10-04] MEDS: LEVALBUTEROL 1.25MG/0.5ML NEB INH SCH ×4 (01:27→19:36)
[2019-10-04] MEDS: METOPROLOL TARTRATE 25 MG TAB PO SCH ×2 (06:04→13:04)
[2019-10-04] MEDS: LEVOTHYROXINE SODIUM 200 MCG TABLET PO SCH (06:05)
[2019-10-04] MEDS: MoRPHine SULFATE CR 15 MG TABCR PO SCH ×3 (06:05→17:58)
[2019-10-04] MEDS: MoRPHine SULFATE CR 60 MG TABCR PO SCH ×3 (06:05→17:58)
[2019-10-04] MEDS: SODIUM CHLOR 7% 4 ML NEB NEB SCH ×2 (08:01→19:36)
[2019-10-04] MEDS: LACTULOSE SYRUP 20 GM/30 ML UDC PO SCH ×2 (08:57→13:04)
[2019-10-04] MEDS: guaiFENesin 600 MG TABCR PO SCH (08:57)
[2019-10-04] MEDS: MAGNESIUM OXIDE 400 MG TAB PO SCH (08:58)
[2019-10-04] MEDS: PANTOprazole 40 MG TAB PO SCH (08:58)
[2019-10-04] MEDS: SUCRALFATE 1 GM/10 ML UDC PO SCH (08:58)
[2019-10-04] MEDS: FUROSEMIDE 20 MG TAB PO SCH (08:58)
[2019-10-04] MEDS: TRIMETHOPRIM/POLYMYXIN B OP SCH ×3 (08:59→17:58)
[2019-10-04] MEDS: POLYETHYLENE (MIRALAX) 17 GM PACK PO SCH (09:04)
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
[2019-10-04] MEDS: ERTAPENEM SODIUM 1,000 MG in SODIUM CHLORIDE 0.9% 50 ML IV SCH (13:03)
[2019-10-04 15:22] LABS: Hematocrit (blood only) 27.5 % (42-52); Hemoglobin 8.1 g/dL (14.0-18.0); Mean Corpuscular Hemoglobin 22.7 pg (25-34); Mean Corpuscular Hgb Conc 29.5 g/dL (32-36); Mean Platelet Volume 9.6 fL (7.4-10.4); Platelet Count 468 K/uL (130-400); RDW Coefficient of Variation 22.4 % (11.5-14.5); RDW Standard Deviation 62.2 fL (36.4-46.3); Red Blood Count 3.57 M/uL (4.7-6.1); White Blood Count 10.22 K/uL (4.8-10.8)
[2019-10-04 15:30] VITALS: TEMP 98.8; O2SAT 91
[2019-10-04 15:43] LABS: BUN Creatinine Ratio 9.3 (10-20); Calcium 7.8 mg/dl (8.5-10.1); Creatinine Clr Calc Pharmacy 78.7 ml/min; Est GFR (African American) 93.2; Est GFR (Non-African American) 80.5; Potassium 3.5 mmol/L (3.5-5.1)
[2019-10-04 16:29] LABS: Anisocytosis Present; Basophils # (auto) 0.11 K/uL (0-0.2); Basophils % (auto) 1.1 %; Eosinophils # (auto) 0.43 K/uL (0-0.5); Eosinophils % (auto) 4.2 %; Hypochromasia Present; Immature Granulocytes # (auto) 0.03 K/uL (0.00-0.02); Immature Granulocytes % (auto) 0.3 %; Lymphocytes # (auto) 3.98 K/uL (1.2-3.4); Lymphocytes % (auto) 38.9 %; Monocytes # (auto) 1.69 K/uL (0.11-0.59); Monocytes % (auto) 16.5 %; Neutrophils # (auto) 3.98 K/uL (1.4-6.5); Target Cells 1+
[2019-10-04 17:09] VITALS: BP 121/77
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
[2019-10-04 18:16] VITALS: PULSE 72
--- NOTE | 2019-10-09 09:46 | Coding Query ---
cq SEPSIS To promote full compliance with coding requirements relating to patient care, physician participation is requested in all cases of director oracle uncertainty. Please assist us with the question(s) below: In responding to this query, please exercise your independent professional judgement. The fact that a question is asked does not imply that any particular answer is desired or expected. We appreciate your clarification on this issue. Throughout the medical record, you have clearly documented a localized infection and your patient has clinical evidence of a generalized sepsis or severe sepsis. The term urosepsis is a nonspecific entity and is coded as an UTI. If the patient has sepsis, severe sepsis, from an urinary source or some other source, please clarify in your response below. The medical record reflects the following clinical findings: (With dates as appropriate) (Body temperature of >38.3 C(101 F) or <36 C(96.8F), pulse >90/minute, respirations >20/minute, WBC count >12,000 or <4,000, altered mental status, significant edema or positive fluid balance, hyperglycemia without diabetes, hypotension, metabolic acidosis (elev. lactate level, anion gap or reduced blood pH), shock, positive blood culture (enter organism) ____ Severe sepsis with septic shocked was documented at the beginning of the patient's stay, please clarify if the patient had: ()Bacteremia (Nonspecific laboratory finding of bacteria in the blood) Specify Organism () Present on Admission () Not present on admission () Unable to clinically determine () Septicemia (Systemic disease associated with the presence of pathogenic microorganisms in the blood): Specify Organism () Present on Admission () Not present on admission () Unable to clinically determine () Sepsis Specify Organism Specify Associated Condition/Diagnosis () Present on Admission () Not present on admission () Unable to clinically determine (x) Severe Sepsis (Sepsis associated with acute organ dysfunction) Specify Organism Specify Associated Condition/Diagnosis () Present on Admission () Not present on admission () Unable to clinically determine () Septic Shock (Severe sepsis with acute circulatory failure, unexplained by other causes) () Present on Admission () Not present on admission () Unable to clinically determine () Other, patient has: Thank you KURTIS Conde
== END 2019-10-04 19:00 | disposition home or self-care (01) | DRG 811 ==
LOC: ED 12:47 → 2W 16:22 → SUATTDRO 16:22 → 2W 23:15 → 1E 09-17 20:36 → 2W 09-20 21:01

== ENCOUNTER 2019-10-29 18:13 | Inpatient (IN) ==
[2019-10-29] MEDS ORDERED: SODIUM CHLORIDE 0.9% 1000ML 1,000 ML IV ONE ×3 (18:52→20:41)
[2019-10-29] MEDS ORDERED: IMIPENEM/CILASTATIN CONSULT ACTIVE PRN (18:57)
[2019-10-29] MEDS ORDERED: IMIPENEM/CILASTATIN SODIUM 500 MG in DEXTROSE 5% 100 ML IV STA (18:57)
[2019-10-29] MEDS ORDERED: methylPREDNISolone 125 MG/2 ML VIAL IV STA (19:03)
[2019-10-29] MEDS ORDERED: MAGNESIUM SULFATE / D5W 1 GM/100 ML BAG IV SCH (19:03)
--- NOTE | 2019-10-29 19:03 | Emergency Department Note ---
Impression & Plan Sepsis, Pneumonia, Respiratory failure ED Provider Note Provider: Mychal Moncada MD DATE OF SERVICE: 10/29/2019 CHIEF COMPLAINT: Shortness of breath HISTORY OF PRESENT ILLNESS: Patient is a 69-year-old gentleman with a past medical history of COPD, ESBL Klebsiella pneumonia, alcoholic cirrhosis with portal hypertension and varices, MALT lymphoma, renal cell cancer status post partial nephrectomy, GERD, anemia, prior intubations recently admitted in September of this year requiring intubation with resistant Klebsiella pneumonia. Reports today from half-way with reports of increased respiratory distress and shortness of breath. Patient himself is somewhat drowsy but states that he feels short of breath. Denies chest pain or abdominal pain. Denies trauma. No fevers reported. Patient is normally on small amount ox but now is on nonrebreather with some slight increased work of breathing. Patient self is quite fatigued is difficult to obtain a significant long history from him as he answers in one- word. Increased work of breathing again is noted. Guards are unable to provide significant additional history other than a significant recent hospitalization has been back present for about 3 weeks. REVIEW OF SYSTEMS: Difficult to obtain due to his drowsiness/mental status PAST MEDICAL HISTORY: As noted above MEDICATIONS: Reviewed medication list. SOCIAL HISTORY: Prisoner in state half-way, former smoker. PHYSICAL EXAM: GENERAL: alert and oriented in no acute distress on stretcher, eyes closed resting on a nonrebreather. Easily awakens to verbal stimuli Head: normocephalic and atraumatic EYES: No injection, discharge or icterus. PERRL NECK: Trachea midline. Supple. ENT: Mucous membranes pink and moist. LUNGS: Airway patent. Increased work of breathing. Breath sounds with scattered wheeze diminished bases. HEART: Regular rate and rhythm. No chest wall tenderness ABDOMEN: Soft and non-tender, without guarding or rebound. SKIN: Acyanotic, warm, dry, without rashes EXTREMITIES: Without swelling or tenderness. NEUROLOGICAL: No focal deficits. No aphasia. No facial droop or slurred speech. EK bpm sinus tachycardia. No PVC or PAC. No acute ST segment elevation or depression. QTC 447. CONTINUOUS CARDIAC MONITORING: was ordered and showed a heart rate of 98 bpm in normal sinus rhythm Patient's hypertension was referred to the [facility] COURSE: 1831 Patient was first seen and H&P performed. 18-gauge IV was placed in the left brachial vein via ultrasound with good blood return and easy flushing. No apparent complication. Patient tolerated well. 2030 Patient reassessed and updated. Patient was resting in bed. The hospitalist was contacted. Patient's laboratory studies and imaging reviewed. Differential includes Infection, dehydration, metabolic abnormality, hypo/hyperglycemia, electrolyte disturbance, anemia, hypoxia, cardiac sources, intracerebral event, toxicologic, neurologic, as well as other pathologies. IMPRESSION/MEDICAL DECISION MAKING: Patient present with significant shortness of breath and hypoxia requiring nonrebreather. Drowsy. History of significant pneumonia and respiratory complications. Placed 90 myself. Cultures and lactate ordered. Basic labs EKG were ordered. No evidence of hyperammonemia. Chest x-ray was ordered. Not febrile upon arrival and not significantly hypotensive. Reviewed prior microbiology with pharmacy. Will empirically give a dose of imipenem at this time for broad coverage pending further results. IV fluids ordered. COVID 19 test negative in the beginning of September. Given his history of COPD magnesium and steroids were ordered. Vancomycin was ordered as well. Leukocytosis of 32 is noted today. Renal function appears stable. No evidence of electrolyte a bnormality. Lactate mildly elevated. Ammonia undetectable. Troponin undetectable. proBNP not elevated. Procalcitonin elevated. TSH slightly low but free T4 within normal limits. Given 2 L of IV fluid based on ideal body weight meeting more than 30ml/kg per sepsis guidelines. Hospitalist was contacted. Additional rapid COVID testing was ordered by the hospitalist and was negative. I do believe his symptoms are related to right lower lobe pneumonia with evidence of effusion in this area. There is no evidence of large PE at this time. ABG at this time shows mild hypoxia on a nonrebreather but no acidosis. No hypercarbia noted. Patient has been maintaining and stable at this time. Do not believe requires intubation at this point. Patient does meet criteria for sepsis with a right lower lobe pneumonia. DIAGNOSIS: Hypoxic respiratory failure, right lower lobe pneumonia, sepsis DISPOSITION: Hospitalist will evaluate for admission. Critical Care I have personally spent 48 minutes of critical care time in the direct management of this patient. This includes bedside care, interpretation of diagnostic studies, and testing, discussion with consultants, patient, and family members, and other required patient management activities. These 48 minutes is in excess of all separately billable procedures. 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 GERD (gastroesophageal reflux disease) HLD (hyperlipidemia) HTN (hypertension) Hypothyroidism Malignant neoplasm of kidney Left side- s/p partial nephrectomy Neuropathy Portal hypertension PVD (peripheral vascular disease) Surgical History History of appendectomy History of partial nephrectomy History of splenectomy Hx of colonoscopy Family History Mother Hypothyroidism Father Myocardial infarction Social History Smoking Status: Former smoker Cigarettes Per Day: 12; Second Hand Exposure: Yes; Hx Alcohol Use: No Hx Substance Use: No Preferred Language: Sinhala Communication Ability: Effective Stained Glass Glazier Required: No Beliefs That Will Affect Care: None Current Living Situation: Other Current Living Situation Comment: half-way current occupational status: unemployed Feels Safe at Home: Yes Allergies Allergies Allergy/AdvReac Type Severity Reaction Status Date / Time lisinopril Allergy Severe Unknown Verified 10/29/19 18:32 YONNY Inhibitors Allergy Intermediate LIPS SWELL Verified 10/29/19 18:32 Cipro Allergy Mild PER RECORD Verified 09/19/17 13:41 ciprofloxacin Allergy Mild Mild rash Verified 09/16/19 13:57 Home Meds Home Medications Medication Instructions Recorded Confirmed isosorbide mononitrate 30 mg PO QAM 03/07/18 10/29/19 tamsulosin 0.4 mg PO 03/07/18 10/29/19 levothyroxine 200 mcg PO QAM 10/16/18 10/29/19 gabapentin 800 mg PO BID 03/07/19 10/29/19 lactulose 30 ml PO TID 03/07/19 10/29/19 Alvesco 1 puff INHALATION BID 05/08/19 10/29/19 mirtazapine 45 mg PO HS 05/08/19 10/29/19 Gaviscon 30 ml PO QID 08/07/19 10/29/19 diphenhydramine HCl 25 mg PO 09/16/19 10/29/19 guaifenesin [Mucinex] 1,200 mg PO BID 10/29/19 10/29/19 levalbuterol tartrate [Xopenex HFA] 2 inh INHALATION QID 10/29/19 10/29/19 oxycodone [OxyContin] 40 mg PO BID 10/29/19 10/29/19 oxycodone [Roxicodone] 30 mg PO TID PRN 10/29/19 10/29/19 prednisone See Rx Instructions .ROUTE .COMPLEX 10/29/19 10/29/19 umeclidinium [Incruse Ellipta] 1 inh INHALATION DAILY 10/29/19 10/29/19 vitamin A and D [A and D] 1 applic TOPICAL BID 10/29/19 10/29/19 Previous Rx's Medication Instructions Recorded magnesium oxide 400 mg PO BID #60 tab 10/04/19 pantoprazole 40 mg PO BID #60 tab 10/04/19 Results & Data (ED) Vital Signs Vital Signs - 24 hr 10/29/19 18:30 10/29/19 18:31 10/29/19 18:32 Temperature 36.8 C Temperature Source Oral Pulse Rate 108 H 106 H 108 H Pulse Rate [Apical] 106 H Pulse Rate from SpO2 Sensor 111 H 109 H Respiratory Rate 23 22 21 Respiratory Effort / Characteristics Spontaneous Labored Short of Breath Respiratory Depth Normal Respiratory Pattern Regular Blood Pressure 135/84 126/88 Blood Pressure [Left Arm] 126/88 Blood Pressure Mean 95 100 Blood Pressure Mean [Left Arm] 100 Pulse Oximetry 95 96 95 Oxygen Delivery Method Non-rebreather Non-rebreather Non-rebreather Oxygen Flow Rate 15 15 15 Sepsis Recent Fever Within 48 Hours No Sepsis New/Unexplained Change in Mental Status No Sepsis Action Taken by Nursing Physician Notified 10/29/19 18:52 10/29/19 19:00 10/29/19 19:30 Temperature Temperature Source Pulse Rate 108 H 109 H 103 H Pulse Rate [Apical] Pulse Rate from SpO2 Sensor 105 H 103 H Respiratory Rate 20 19 18 Respiratory Effort / Characteristics Respiratory Depth Respiratory Pattern Blood Pressure 115/76 Blood Pressure [Left Arm] Blood Pressure Mean 95 Blood Pressure Mean [Left Arm] Pulse Oximetry 95 93 94 Oxygen Delivery Method Non-rebreather Non-rebreather Non-rebreather Oxygen Flow Rate 15 15 15 Sepsis Recent Fever Within 48 Hours Sepsis New/Unexplained Change in Mental Status Sepsis Action Taken by Nursing 10/29/19 19:53 10/29/19 20:00 10/29/19 20:30 Temperature Temperature Source Pulse Rate 101 H 99 H 96 H Pulse Rate [Apical] Pulse Rate from SpO2 Sensor 101 H 99 H 96 H Respiratory Rate 20 18 17 Respiratory Effort / Characteristics Respiratory Depth Respiratory Pattern Blood Pressure 133/81 127/84 133/75 Blood Pressure [Left Arm] Blood Pressure Mean 92 97 101 Blood Pressure Mean [Left Arm] Pulse Oximetry 93 92 96 Oxygen Delivery Method Non-rebreather Non-rebreather Non-rebreather Oxygen Flow Rate 15 15 15 Sepsis Recent Fever Within 48 Hours Sepsis New/Unexplained Change in Mental Status Sepsis Action Taken by Nursing 10/29/19 21:00 10/29/19 21:30 10/29/19 22:00 Temperature Temperature Source Pulse Rate 97 H 97 H 91 H Pulse Rate [Apical] Pulse Rate from SpO2 Sensor 97 H 97 H Respiratory Rate 18 20 20 Respiratory Effort / Characteristics Respiratory Depth Respiratory Pattern Blood Pressure 120/73 131/76 131/83 Blood Pressure [Left Arm] Blood Pressure Mean 83 98 97 Blood Pressure Mean [Left Arm] Pulse Oximetry 96 99 Oxygen Delivery Method Non-rebreather Non-rebreather Oxygen Flow Rate 15 15 Sepsis Recent Fever Within 48 Hours Sepsis New/Unexplained Change in Mental Status Sepsis Action Taken by Nursing 10/29/19 22:20 Temperature Temperature Source Pulse Rate Pulse Rate [Apical] 105 H Pulse Rate from SpO2 Sensor Respiratory Rate 20 Respiratory Effort / Characteristics Non-Labored Spontaneous Respiratory Depth Respiratory Pattern Blood Pressure Blood Pressure [Left Arm] Blood Pressure Mean Blood Pressure Mean [Left Arm] Pulse Oximetry 100 Oxygen Delivery Method Non-rebreather Oxygen Flow Rate Sepsis Recent Fever Within 48 Hours Sepsis New/Unexplained Change in Mental Status Sepsis Action Taken by Nursing Laboratory Data Result diagrams: 10/29/19 18:47 10/29/19 18:47 Lab Results 10/29/19 10/29/19 10/29/19 Range/Units 18:47 18:47 18:47 WBC 32.54 H* (4.8-10.8) K/uL RBC 3.92 L (4.7-6.1) M/uL Hgb 9.3 L (14.0-18.0) g/dL Hct 30.5 L (42-52) % MCV 77.8 L (80-100) fL MCH 23.7 L (25-34) pg MCHC 30.5 L (32-36) g/dL RDW Std Deviation 68.0 H (36.4-46.3) fL RDW Coeff of Alin 24.3 H (11.5-14.5) % Plt Count 431 H (130-400) K/uL MPV 9.6 (7.4-10.4) fL Absolute Nucleated RBC 0.48 H (0-0) K/uL Nucleated RBC % (auto) 1.5 % Neutrophils % (Manual) 49.2 % Lymphocytes % (Manual) 40.5 % Monocytes % (Manual) 10.3 % Neutrophils # (Manual) 16.01 H (1.4-6.5) K/uL Total Absolute Neuts 16.01 H (1.4-6.5) K/uL Lymphocytes # (Manual) 13.18 H (1.2-3.4) K/uL Total Abs Lymphocytes 13.18 H (1.2-3.4) K/uL Monocytes # (Manual) 3.35 H (0.11-0.59) K/uL Polychromasia 1+ Target Cells 1+ Echinocytes 1+ PT 11.6 (9.0-12.0) Seconds INR 1.1 (0.9-1.1) ABG pH (7.35-7.45) ABG pCO2 (35-46) mmHg ABG pO2 (80-95) mmHg ABG HCO3 (19-24) mmol/L ABG O2 Saturation (90-95) % ABG Base Excess (-9-1.8) mEq/L Shan Test (Pos) VBG pH VBG pCO2 VBG pO2 VBG HCO3 VBG O2 Saturation VBG Base Excess Barometric Pressure Oxygen Given Sodium 133 L (136-145) mmol/L Potassium 4.3 (3.5-5.1) mmol/L Chloride 104 (98-107) mmol/L Carbon Dioxide 24 (21-32) mmol/L Anion Gap 5.0 (3-11) BUN 12 (7-18) mg/dl Creatinine 0.94 (0.6-1.4) mg/dl Est Cr Clr Drug Dosing 71.7 ml/min Est GFR ( Amer) 96.8 Est GFR (Non-Af Amer) 83.6 BUN/Creatinine Ratio 13.3 (10-20) Glucose 72 (70-99) mg/dl Lactate (0.4-2.0) mmol/L Calcium 9.5 (8.5-10.1) mg/dl Magnesium 2.0 (1.8-2.4) mg/dl Total Bilirubin 0.8 (0.2-1) mg/dl AST 85 H (15-37) U/L ALT 23 (12-78) U/L Alkaline Phosphatase 141 H (45-117) U/L Ammonia (11-32) umol/L Troponin I < 0.015 (0-0.045) ng/ml Total Protein 9.2 H (6.4-8.2) gm/dl Albumin 1.5 L (3.4-5.0) gm/dl Globulin 7.7 H (2.5-4.0) gm/dl Albumin/Globulin Ratio 0.2 L (0.9-2) Lipase 201 (73-393) U/L Procalcitonin (0-0.5) ng/ml TSH 0.237 L (0.300-4.500) uIu/ml Free T4 1.21 (0.8-1.6) ng/dl COVID-19 Eval Order COVID-19 PCR (Negative) 10/29/19 10/29/19 10/29/19 Range/Units 18:47 18:47 20:00 WBC (4.8-10.8) K/uL RBC (4.7-6.1) M/uL Hgb (14.0-18.0) g/dL Hct (42-52) % MCV (80-100) fL MCH (25-34) pg MCHC (32-36) g/dL RDW Std Deviation (36.4-46.3) fL RDW Coeff of Alin (11.5-14.5) % Plt Count (130-400) K/uL MPV (7.4-10.4) fL Absolute Nucleated RBC (0-0) K/uL Nucleated RBC % (auto) % Neutrophils % (Manual) % Lymphocytes % (Manual) % Monocytes % (Manual) % Neutrophils # (Manual) (1.4-6.5) K/uL Total Absolute Neuts (1.4-6.5) K/uL Lymphocytes # (Manual) (1.2-3.4) K/uL Total Abs Lymphocytes (1.2-3.4) K/uL Monocytes # (Manual) (0.11-0.59) K/uL Polychromasia Target Cells Echinocytes PT (9.0-12.0) Seconds INR (0.9-1.1) ABG pH (7.35-7.45) ABG pCO2 (35-46) mmHg ABG pO2 (80-95) mmHg ABG HCO3 (19-24) mmol/L ABG O2 Saturation (90-95) % ABG Base Excess (-9-1.8) mEq/L Shan Test (Pos) VBG pH VBG pCO2 VBG pO2 VBG HCO3 VBG O2 Saturation VBG Base Excess Barometric Pressure Oxygen Given Sodium (136-145) mmol/L Potassium (3.5-5.1) mmol/L Chloride (98-107) mmol/L Carbon Dioxide (21-32) mmol/L Anion Gap (3-11) BUN (7-18) mg/dl Creatinine (0.6-1.4) mg/dl Est Cr Clr Drug Dosing ml/min Est GFR ( Amer) Est GFR (Non-Af Amer) BUN/Creatinine Ratio (10-20) Glucose (70-99) mg/dl Lactate 2.4 H* (0.4-2.0) mmol/L Calcium (8.5-10.1) mg/dl Magnesium (1.8-2.4) mg/dl Total Bilirubin (0.2-1) mg/dl AST (15-37) U/L ALT (12-78) U/L Alkaline Phosphatase (45-117) U/L Ammonia < 10.0 L (11-32) umol/L Troponin I (0-0.045) ng/ml Total Protein (6.4-8.2) gm/dl Albumin (3.4-5.0) gm/dl Globulin (2.5-4.0) gm/dl Albumin/Globulin Ratio (0.9-2) Lipase (73-393) U/L Procalcitonin 0.53 H (0-0.5) ng/ml TSH (0.300-4.500) uIu/ml Free T4 (0.8-1.6) ng/dl COVID-19 Eval Order COVID-19 PCR (Negative) 10/29/19 10/29/19 10/29/19 Range/Units 20:00 20:49 21:00 WBC (4.8-10.8) K/uL RBC (4.7-6.1) M/uL Hgb (14.0-18.0) g/dL Hct (42-52) % MCV (80-100) fL MCH (25-34) pg MCHC (32-36) g/dL RDW Std Deviation (36.4-46.3) fL RDW Coeff of Alin (11.5-14.5) % Plt Count (130-400) K/uL MPV (7.4-10.4) fL Absolute Nucleated RBC (0-0) K/uL Nucleated RBC % (auto) % Neutrophils % (Manual) % Lymphocytes % (Manual) % Monocytes % (Manual) % Neutrophils # (Manual) (1.4-6.5) K/uL Total Absolute Neuts (1.4-6.5) K/uL Lymphocytes # (Manual) (1.2-3.4) K/uL Total Abs Lymphocytes (1.2-3.4) K/uL Monocytes # (Manual) (0.11-0.59) K/uL Polychromasia Target Cells Echinocytes PT (9.0-12.0) Seconds INR (0.9-1.1) ABG pH 7.38 (7.35-7.45) ABG pCO2 33 L (35-46) mmHg ABG pO2 74 L (80-95) mmHg ABG HCO3 19 (19-24) mmol/L ABG O2 Saturation 92.6 (90-95) % ABG Base Excess -5.2 (-9-1.8) mEq/L Shan Test Pos (Pos) VBG pH Cancelled VBG pCO2 Cancelled VBG pO2 Cancelled VBG HCO3 Cancelled VBG O2 Saturation Cancelled VBG Base Excess Cancelled Barometric Pressure Cancelled 733.7 Oxygen Given 15L O2 Sodium (136-145) mmol/L Potassium (3.5-5.1) mmol/L Chloride (98-107) mmol/L Carbon Dioxide (21-32) mmol/L Anion Gap (3-11) BUN (7-18) mg/dl Creatinine (0.6-1.4) mg/dl Est Cr Clr Drug Dosing ml/min Est GFR ( Amer) Est GFR (Non-Af Amer) BUN/Creatinine Ratio (10-20) Glucose (70-99) mg/dl Lactate (0.4-2.0) mmol/L Calcium (8.5-10.1) mg/dl Magnesium (1.8-2.4) mg/dl Total Bilirubin (0.2-1) mg/dl AST (15-37) U/L ALT (12-78) U/L Alkaline Phosphatase (45-117) U/L Ammonia (11-32) umol/L Troponin I (0-0.045) ng/ml Total Protein (6.4-8.2) gm/dl Albumin (3.4-5.0) gm/dl Globulin (2.5-4.0) gm/dl Albumin/Globulin Ratio (0.9-2) Lipase (73-393) U/L Procalcitonin (0-0.5) ng/ml TSH (0.300-4.500) uIu/ml Free T4 (0.8-1.6) ng/dl COVID-19 Eval Order Covid19 Done at [facility] [place] COVID-19 PCR (Negative) 10/29/19 Range/Units 21:00 WBC (4.8-10.8) K/uL RBC (4.7-6.1) M/uL Hgb (14.0-18.0) g/dL Hct (42-52) % MCV (80-100) fL MCH (25-34) pg MCHC (32-36) g/dL RDW Std Deviation (36.4-46.3) fL RDW Coeff of Alin (11.5-14.5) % Plt Count (130-400) K/uL MPV (7.4-10.4) fL Absolute Nucleated RBC (0-0) K/uL Nucleated RBC % (auto) % Neutrophils % (Manual) % Lymphocytes % (Manual) % Monocytes % (Manual) % Neutrophils # (Manual) (1.4-6.5) K/uL Total Absolute Neuts (1.4-6.5) K/uL Lymphocytes # (Manual) (1.2-3.4) K/uL Total Abs Lymphocytes (1.2-3.4) K/uL Monocytes # (Manual) (0.11-0.59) K/uL Polychromasia Target Cells Echinocytes PT (9.0-12.0) Seconds INR (0.9-1.1) ABG pH (7.35-7.45) ABG pCO2 (35-46) mmHg ABG pO2 (80-95) mmHg ABG HCO3 (19-24) mmol/L ABG O2 Saturation (90-95) % ABG Base Excess (-9-1.8) mEq/L Shan Test (Pos) VBG pH VBG pCO2 VBG pO2 VBG HCO3 VBG O2 Saturation VBG Base Excess Barometric Pressure Oxygen Given Sodium (136-145) mmol/L Potassium (3.5-5.1) mmol/L Chloride (98-107) mmol/L Carbon Dioxide (21-32) mmol/L Anion Gap (3-11) BUN (7-18) mg/dl Creatinine (0.6-1.4) mg/dl Est Cr Clr Drug Dosing ml/min Est GFR ( Amer) Est GFR (Non-Af Amer) BUN/Creatinine Ratio (10-20) Glucose (70-99) mg/dl Lactate (0.4-2.0) mmol/L Calcium (8.5-10.1) mg/dl Magnesium (1.8-2.4) mg/dl Total Bilirubin (0.2-1) mg/dl AST (15-37) U/L ALT (12-78) U/L Alkaline Phosphatase (45-117) U/L Ammonia (11-32) umol/L Troponin I (0-0.045) ng/ml Total Protein (6.4-8.2) gm/dl Albumin (3.4-5.0) gm/dl Globulin (2.5-4.0) gm/dl Albumin/Globulin Ratio (0.9-2) Lipase (73-393) U/L Procalcitonin (0-0.5) ng/ml TSH (0.300-4.500) uIu/ml Free T4 (0.8-1.6) ng/dl COVID-19 Eval Order COVID-19 PCR NEGATIVE (Negative) Administered Medications Gabapentin (Gabapentin 800 Mg Tab) 800 mg PO BID KRISTIAN Stop: 11/28/19 23:56 Last Admin: 10/30/19 00:56 Dose: Not Given Documented by: [id number] Albumin Human (Albumin 25%) 50 mls @ 50 mls/hr IV Q1H KRISTIAN Stop: 10/30/19 03:14 Last Admin: 10/30/19 01:31 Dose: 50 mls/hr Documented by: [id number] Ipratropium Adkins (Ipratropium Adkins Neb Soln 0.02% 2.5 Ml Vial) 0.5 mg INH Q4R KRISTIAN Stop: 11/29/19 00:59 Last Admin: 10/30/19 00:46 Dose: 0.5 mg Documented by: [id number] Levalbuterol HCl (Levalbuterol 1.25mg/0.5ml Neb) 1.25 mg INH Q4R KRISTIAN Stop: 11/29/19 00:59 Last Admin: 10/30/19 00:46 Dose: 1.25 mg Documented by: [id number] Discontinued Medications Albuterol (Albut/Ipratrop 3mg/0.5mg Neb 3 Ml Vial) 3 ml NEB NOW STA Stop: 10/29/19 20:36 Last Admin: 10/29/19 22:19 Dose: 3 ml Documented by: [id number] Sodium Chloride (Nss 1000ml) 1,000 mls @ 999 mls/hr IV .Q1H1M ONE Stop: 10/29/19 19:52 Last Infusion: 10/29/19 21:13 Dose: 0 mls/hr Documented by: [id number] Admin: 10/29/19 19:18 Dose: 999 mls/hr Documented by: [id number] Imipenem/Cilastatin Sodium 500 (mg/ Dextrose) 110 mls @ 100 mls/hr IV NOW STA Stop: 10/29/19 20:02 Last Infusion: 10/29/19 21:13 Dose: 0 mls/hr Documented by: [id number] Admin: 10/29/19 19:18 Dose: 100 mls/hr Documented by: [id number] Magnesium Sulfate/Dextrose (Magnesium Sulfate / D5w) 1 gm in 100 mls @ 400 mls/hr IV Q15M KRISTIAN Stop: 10/29/19 19:17 Last Infusion: 10/29/19 19:40 Dose: 0 mls/hr Documented by: [id number] Admin: 10/29/19 19:17 Dose: 400 mls/hr Documented by: [id number] Vancomycin HCl 1,500 mg/ (Sodium Chloride) 530 mls @ 200 mls/hr IV NOW STA Stop: 10/29/19 21:50 Last Infusion: 10/29/19 23:26 Dose: 0 mls/hr Documented by: [id number] Admin: 10/29/19 20:25 Dose: 200 mls/hr Documented by: [id number] Sodium Chloride (Nss 1000ml) 1,000 mls @ 999 mls/hr IV .Q1H1M ONE Stop: 10/29/19 21:33 Last Infusion: 10/29/19 22:20 Dose: 0 mls/hr Documented by: [id number] Admin: 10/29/19 21:11 Dose: 999 mls/hr Documented by: [id number] Sodium Chloride (Nss 1000ml) 1,000 mls @ 200 mls/hr IV .Q5H ONE Stop: 10/30/19 01:40 Last Infusion: 10/30/19 01:14 Dose: 0 mls/hr Documented by: [id number] Admin: 10/29/19 21:11 Dose: 200 mls/hr Documented by: [id number] Ioversol (Optiray 320 125ml) 118 ml IV ONCE ONE Stop: 10/29/19 19:42 Last Admin: 10/29/19 19:42 Dose: 118 ml Documented by: [id number] Methylprednisolone (Methylprednisolone 125 Mg/2 Ml Vial) 125 mg IV NOW STA Stop: 10/29/19 19:04 Last Admin: 10/29/19 19:17 Dose: 125 mg Documented by: [id number] Discharge Plan Visit Data Chief Complaint: Shortness of Breath/Dyspnea Stated Complaint: RESP. DISTRESS ED Provider: Mychal Moncada Discharge Problem: Sepsis, Pneumonia, Respiratory failure Patient Disposition: Admitted As Inpatient Discharge Instructions Interventions: ED Discharge Assessment Last Done: 10/29/19 23:20 Discharge Problem: Sepsis Qualifiers: Sepsis type: sepsis due to unspecified organism Sepsis acute organ dysfunction status: with acute organ dysfunction Severe sepsis acute organ dysfunction type: acute respiratory failure Acute respiratory failure type: with hypoxia Severe sepsis shock status: without septic shock Qualified Code(s): A41.9 - Sepsis, unspecified organism Pneumonia Qualifiers: Pneumonia type: due to unspecified organism Laterality: right Lung location: lower lobe of lung Qualified Code(s): J18.9 - Pneumonia, unspecified organism Respiratory failure Qualifiers: Chronicity: acute on chronic Respiratory failure complication: hypoxia Qualified Code(s): J96.21 - Acute and chronic respiratory failure with hypoxia
[2019-10-29 19:12] LABS: INR 1.1 (0.9-1.1); Prothrombin Time 11.6 Seconds (9.0-12.0)
[2019-10-29] MEDS ORDERED: VANCOMYCIN HCL 1,500 MG in SODIUM CHLORIDE 0.9% 500 ML IV STA (19:12)
[2019-10-29] MEDS ORDERED: VANCOMYCIN CONSULT ACTIVE PRN (19:12)
[2019-10-29 19:19] LABS: Alanine Aminotransferase 23 U/L (12-78); Albumin Level 1.5 gm/dl (3.4-5.0); Aspartate Aminotransferase 85 U/L (15-37); BUN Creatinine Ratio 13.3 (10-20); Blood Urea Nitrogen 12 mg/dl (7-18); Calcium 9.5 mg/dl (8.5-10.1); Carbon Dioxide 24 mmol/L (21-32); Chloride 104 mmol/L (98-107); Creatinine Clr Calc Pharmacy 71.7 ml/min; Est GFR (African American) 96.8; Est GFR (Non-African American) 83.6; Glucose 72 mg/dl (70-99); Lipase 201 U/L (73-393); Potassium 4.3 mmol/L (3.5-5.1); Sodium 133 mmol/L (136-145)
[2019-10-29 19:30] LABS: Albumin Globulin Ratio 0.2 (0.9-2); Alkaline Phosphatase 141 U/L (45-117); Bilirubin,Total 0.8 mg/dl (0.2-1); Globulin 7.7 gm/dl (2.5-4.0); Thyroid Stimulating Hormone 0.237 uIu/ml (0.300-4.500); Total Protein 9.2 gm/dl (6.4-8.2); Troponin I < 0.015 ng/ml (0-0.045)
[2019-10-29] MEDS ORDERED: OPTIRAY 320 125ml IV ONE (19:41)
[2019-10-29 19:43] LABS: T4 Free Thyroxine 1.21 ng/dl (0.8-1.6)
[2019-10-29 19:54] LABS: Hematocrit (blood only) 30.5 % (42-52); Hemoglobin 9.3 g/dL (14.0-18.0); Mean Corpuscular Hemoglobin 23.7 pg (25-34); Mean Corpuscular Hgb Conc 30.5 g/dL (32-36); Mean Corpuscular Volume 77.8 fL (80-100); Mean Platelet Volume 9.6 fL (7.4-10.4); Nucleated RBC # (auto) 0.48 K/uL (0-0); Nucleated RBC % (auto) 1.5 %; Platelet Count 431 K/uL (130-400); RDW Coefficient of Variation 24.3 % (11.5-14.5); Red Blood Count 3.92 M/uL (4.7-6.1); White Blood Count 32.54 K/uL (4.8-10.8)
[2019-10-29 19:55] LABS: ALC (manual) 13.18 K/uL (1.2-3.4); ANC (manual) 16.01 K/uL (1.4-6.5); Echinocytes 1+; Lymphocytes # (manual) 13.18 K/uL (1.2-3.4); Lymphocytes % (manual) 40.5 %; Monocytes # (manual) 3.35 K/uL (0.11-0.59); Monocytes % (manual) 10.3 %; Neutrophils # (manual) 16.01 K/uL (1.4-6.5); Neutrophils % (manual) 49.2 %; Polychromasia 1+; Target Cells 1+
--- NOTE | 2019-10-29 20:04 | CT Scan Report ---
CT angio chest PE protocol CT DOSE: 604.34 mGy.cm HISTORY: 69 years-old Male with PE, sob. Acute shortness of breath with possible pulmonary embolus TECHNIQUE: Multiple CTA images of the chest were obtained after the intravenous administration of 118 ml Optiray 320. Coronal and sagittal MIPS were obtained from the axial data set and were submitted for review. All measurements were obtained according to NASCET criteria. A dose lowering technique w as utilized adhering to the principles of ALARA. COMPARISON: Chest radiograph 09/30/2019, CTA chest 09/27/2019 FINDINGS: CTA: Heart is normal in size without pericardial effusion. Coronary artery calcifications. Mild dilation o f the aortic root is redemonstrated, 4.1 cm. No thoracic aortic dissection. Patency of the imaged gre at vessels. Moderate mixed plaque of the thoracic aorta. There is suboptimal opacification of the pul monary arterial tree secondary to contrast bolus timing and respiratory motion. No central pulmonary emboli identified. CT CHEST: Unremarkable thyroid. Pathologically enlarged paratracheal, subcarinal and right hilar lymph nodes. P unctate metallic density foci of the left chest wall, left lung base and left heart redemonstrated. M oderate right pleural effusion. Emphysema. Mild subsegmental consolidation of the dependent left lung base. Respiratory motion artifact limits evaluation of the lung parenchyma. There is consolidation i nvolving the majority of the right lower lobe. Additional dependent opacities of the right upper and middle lobes. Right lower lobe air bronchograms. No obstructing endobronchial lesion. Mildly distended esophagus redemonstrated. Cirrhotic morphology of the liver with upper abdominal hoang ices compatible with sequela of portal venous hypertension. Nonobstructing right nephrolithiasis. Cho lelithiasis. Unremarkable appearance of the soft tissues. The bones appear intact. IMPRESSION: 1. Limited evaluation of the pulmonary arterial tree secondary to contrast bolus timing and respirato ry motion artifact. No central pulmonary emboli identified. 2. Moderate right pleural effusion. Near complete consolidation of the right lower lobe with air bron chograms. Correlate clinically to exclude pneumonia. 3. Emphysema. 4. Likely reactive mediastinal and hilar adenopathy. 5. Cirrhotic liver disease. 6. Nonobstructing right nephrolithiasis. 7. Additional findings as above. ACT 112: Negative or not required by law. The above report was generated using voice recognition software. It may contain grammatical, syntax o r spelling errors. Electronically signed by: Brendan Gallo M.D. 10/29/2019 8:02 PM
--- NOTE | 2019-10-29 20:28 | XRay Report ---
XR chest 1V portable HISTORY: 69 years-old Male sob acute shortness of breath COMPARISON: CTA of the chest of same day, chest radiograph 09/30/2019 TECHNIQUE: Portable AP view of the chest FINDINGS: Cardiomegaly. Moderate right pleural effusion with right midlung and right lung base consolidation. P ulmonary vascular congestion. No pneumothorax. Degenerative changes of the shoulders and spine. Multi ple punctate metallic density foreign bodies of the left chest redemonstrated. IMPRESSION: 1. Cardiomegaly with pulmonary vascular congestion. 2. Moderate right pleural effusion with right midlung and right lung base consolidation. ACT 112: Negative or not required by law. The above report was generated using voice recognition software. It may contain grammatical, syntax o r spelling errors. Electronically signed by: Brendan Gallo M.D. 10/29/2019 8:27 PM
[2019-10-29] MEDS ORDERED: ALBUT/IPRATROP 3MG/0.5MG NEB 3 ML VIAL NEB STA (20:35)
[2019-10-29 21:00] LABS: Base Excess ABG -5.2 mEq/L (-9-1.8); HCO3 ABG 19 mmol/L (19-24); Oxygen Saturation ABG 92.6 % (90-95); PCO2 ABG 33 mmHg (35-46); PO2 ABG 74 mmHg (80-95); pH ABG 7.38 (7.35-7.45)
[2019-10-29 21:03] LABS: Allen Test Pos (Pos)
--- NOTE | 2019-10-29 22:18 | History & Physical Report ---
Date of Service October 29, 2019 Assessment & Plan (1) Acute hypoxemic respiratory failure: Admission and Anticipated Discharge Date Admission Date: Secondary to COPD exacerbation secondary to complicated pneumonia, possible recurrent aspiration Severe sepsis secondary to above hx MRSA/ESBL Klebsiella as per records, Diarrhea secondary to lactulose Rule out C. 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 SCDs RE recent U GIB Full code Text document was generated using [employer] voice recognition software. It may contain grammatical or spelling errors. Kindly contact undersigned for clarification of any documentation item in question. History of Present Illness Patient Chief Complaint: Cough, S OB, abdominal pain Primary Care Provider: DANIEL Chester History obtained from patient, animal control officer, and records. Patient is a fair historian. 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 Recent confinement last month for UGI B and hypoxemic respiratory failure secondary to possible aspiration pneumonia pneumonia/pulmonary edema. Patient intubated during confinement. Sputum cultures grew ESBL Klebsiella. Patient completed Ertapenem course. Patient MS Yeung changed to oxycodone 3 times daily. As per patient, when he was discharged from hospital he noted worsening achy abdominal discomfort. Nonbloody diarrhea as per unarmed security guard. Patient not doing a lot in residential as per officer. Just waiting for pain meds. Episode of drowsiness impression from pain meds as per officer. In the last week patient noted cough productive of green sputum and worsening shortness of breath. No actual chest pain. Patient unaware of new aspiration events. No unusual fluid retention as per patient. At the ER, patient received Solu-Medrol, Vancomycin, and Imipenem. Medical History as above Surgical History : Appendectomy, nephrectomy, splenectomy Family History : Heart disease Personal/Social history : Few cigarettes a day, past alcohol abuse, alf inmate Allergies Allergy/AdvReac Type Severity Reaction Status Date / Time lisinopril Allergy Severe Unknown Verified 10/29/19 18:32 YONNY Inhibitors Allergy Intermediate LIPS SWELL Verified 10/29/19 18:32 Cipro Allergy Mild PER RECORD Verified 09/19/17 13:41 ciprofloxacin Allergy Mild Mild rash Verified 09/16/19 13:57 Home Medications Home Medications Medication Instructions Recorded Confirmed Type isosorbide mononitrate 30 mg PO QAM 03/07/18 10/29/19 History tamsulosin 0.4 mg PO HS 03/07/18 10/29/19 History levothyroxine 200 mcg PO QAM 10/16/18 10/29/19 History gabapentin 800 mg PO BID 03/07/19 10/29/19 History lactulose 30 ml PO TID 03/07/19 10/29/19 History Alvesco 1 puff INHALATION BID 05/08/19 10/29/19 History mirtazapine 45 mg PO HS 05/08/19 10/29/19 History Gaviscon 30 ml PO QID 08/07/19 10/29/19 History diphenhydramine HCl 25 mg PO HS 09/16/19 10/29/19 History magnesium oxide 400 mg PO BID #60 tab 10/04/19 10/29/19 Rx pantoprazole 40 mg PO BID #60 tab 10/04/19 10/29/19 Rx guaifenesin [Mucinex] 1,200 mg PO BID 10/29/19 10/29/19 History levalbuterol tartrate [Xopenex HFA] 2 inh INHALATION QID 10/29/19 10/29/19 History oxycodone [OxyContin] 40 mg PO BID 10/29/19 10/29/19 History oxycodone [Roxicodone] 30 mg PO TID PRN 10/29/19 10/29/19 History prednisone See Rx Instructions .ROUTE .COMPLEX 10/29/19 10/29/19 History umeclidinium [Incruse Ellipta] 1 inh INHALATION DAILY 10/29/19 10/29/19 History vitamin A and D [A and D] 1 applic TOPICAL BID 10/29/19 10/29/19 History Past Med/Surg History Medical History (Updated 10/30/19 @ 04:49 by Paramjit Jc MD) Anemia CAD (coronary artery disease) Cholelithiasis without cholecystitis Chronic pain Chronic sinusitis Cirrhosis Secondary to alcohol COPD (chronic obstructive pulmonary disease) Esophageal varices 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 GERD (gastroesophageal reflux disease) HLD (hyperlipidemia) HTN (hypertension) Hypothyroidism Malignant neoplasm of kidney Left side- s/p partial nephrectomy Neuropathy Portal hypertension PVD (peripheral vascular disease) Surgical History History of appendectomy History of partial nephrectomy History of splenectomy Hx of colonoscopy Family History Mother Hypothyroidism Father Myocardial infarction Social History Smoking Status: Former smoker Cigarettes Per Day: 12; Second Hand Exposure: Yes; Hx Alcohol Use: No Hx Substance Use: No Preferred Language: Kosovan Communication Ability: Effective Circular Saw Edge Fuser Required: No Beliefs That Will Affect Care: None Current Living Situation: Other Current Living Situation Comment: alf current occupational status: unemployed Feels Safe at Home: Yes Review of Systems Review of Systems: As per HPI, all 10 systems reviewed, all other ROS negative Physical Exam Physical Exam: GENERAL: Slightly uncomfortable, dysphonic (chronic ), no respiratory distress SKIN: Pallor , warm HEENT: Pale palpebral conjunctivae, no ptosis, dry buccal mucosa, nasal cannula in place NECK : Supple, no tenderness CHEST : Decreased breath sounds, occasional expiratory wheezes, no tenderness HEART : RRR, no obvious murmurs ABDOMEN: Some distention, nontender EXTREMITIES : Minimal LE swelling, no LE tenderness, no other conspicuous deformities noted NEUROLOGIC : Coherent, no facial asymmetry, chronic dysphonia, no other gross focality Results & Data Results & Data ([facility]) Vital Signs (Past 12 Hours) Vital Signs Temp Pulse Pulse Resp BP BP Pulse Ox 10/29/19 21:30 97 H 20 131/76 99 10/29/19 21:00 97 H 18 120/73 96 10/29/19 20:30 96 H 17 133/75 96 10/29/19 20:00 99 H 18 127/84 92 10/29/19 19:53 101 H 20 133/81 93 10/29/19 19:30 103 H 18 94 10/29/19 19:00 109 H 19 115/76 93 10/29/19 18:52 108 H 20 95 10/29/19 18:32 108 H 21 95 10/29/19 18:31 36.8 C 106 H 106 H 22 126/88 126/88 96 10/29/19 18:30 108 H 23 135/84 95 Laboratory Results Laboratory Results WBC 32.54 K/uL (4.8-10.8) H* 10/29/19 18:47 RBC 3.92 M/uL (4.7-6.1) L 10/29/19 18:47 Hgb 9.3 g/dL (14.0-18.0) L 10/29/19 18:47 Hct 30.5 % (42-52) L 10/29/19 18:47 MCV 77.8 fL (80-100) L 10/29/19 18:47 MCH 23.7 pg (25-34) L 10/29/19 18:47 MCHC 30.5 g/dL (32-36) L 10/29/19 18:47 RDW Std Deviation 68.0 fL (36.4-46.3) H 10/29/19 18:47 RDW Coeff of Alin 24.3 % (11.5-14.5) H 10/29/19 18:47 Plt Count 431 K/uL (130-400) H 10/29/19 18:47 MPV 9.6 fL (7.4-10.4) 10/29/19 18:47 Absolute Nucleated RBC 0.48 K/uL (0-0) H 10/29/19 18:47 Nucleated RBC % (auto) 1.5 % 10/29/19 18:47 Neutrophils % (Manual) 49.2 % 10/29/19 18:47 Lymphocytes % (Manual) 40.5 % 10/29/19 18:47 Monocytes % (Manual) 10.3 % 10/29/19 18:47 Neutrophils # (Manual) 16.01 K/uL (1.4-6.5) H 10/29/19 18:47 Total Absolute Neuts 16.01 K/uL (1.4-6.5) H 10/29/19 18:47 Lymphocytes # (Manual) 13.18 K/uL (1.2-3.4) H 10/29/19 18:47 Total Abs Lymphocytes 13.18 K/uL (1.2-3.4) H 10/29/19 18:47 Monocytes # (Manual) 3.35 K/uL (0.11-0.59) H 10/29/19 18:47 Polychromasia 1+ 10/29/19 18:47 Target Cells 1+ 10/29/19 18:47 Echinocytes 1+ 10/29/19 18:47 PT 11.6 Seconds (9.0-12.0) 10/29/19 18:47 INR 1.1 (0.9-1.1) 10/29/19 18:47 ABG pH 7.38 (7.35-7.45) 10/29/19 20:49 ABG pCO2 33 mmHg (35-46) L 10/29/19 20:49 ABG pO2 74 mmHg (80-95) L 10/29/19 20:49 ABG HCO3 19 mmol/L (19-24) 10/29/19 20:49 ABG O2 Saturation 92.6 % (90-95) 10/29/19 20:49 ABG Base Excess -5.2 mEq/L (-9-1.8) 10/29/19 20:49 Shan Test Pos (Pos) 10/29/19 20:49 VBG pH Cancelled 10/29/19 20:00 VBG pCO2 Cancelled 10/29/19 20:00 VBG pO2 Cancelled 10/29/19 20:00 VBG HCO3 Cancelled 10/29/19 20:00 VBG O2 Saturation Cancelled 10/29/19 20:00 VBG Base Excess Cancelled 10/29/19 20:00 Barometric Pressure 733.7 mm/Hg 10/29/19 20:49 Oxygen Given 15L O2 10/29/19 20:49 Sodium 133 mmol/L (136-145) L 10/29/19 18:47 Potassium 4.3 mmol/L (3.5-5.1) 10/29/19 18:47 Chloride 104 mmol/L (98-107) 10/29/19 18:47 Carbon Dioxide 24 mmol/L (21-32) 10/29/19 18:47 Anion Gap 5.0 (3-11) 10/29/19 18:47 BUN 12 mg/dl (7-18) 10/29/19 18:47 Creatinine 0.94 mg/dl (0.6-1.4) 10/29/19 18:47 Est Cr Clr Drug Dosing 71.7 ml/min 10/29/19 18:47 Est GFR ( Amer) 96.8 10/29/19 18:47 Est GFR (Non-Af Amer) 83.6 10/29/19 18:47 BUN/Creatinine Ratio 13.3 (10-20) 10/29/19 18:47 Glucose 72 mg/dl (70-99) 10/29/19 18:47 Lactate 2.4 mmol/L (0.4-2.0) H* 10/29/19 18:47 Calcium 9.5 mg/dl (8.5-10.1) 10/29/19 18:47 Magnesium 2.0 mg/dl (1.8-2.4) 10/29/19 18:47 Total Bilirubin 0.8 mg/dl (0.2-1) 10/29/19 18:47 AST 85 U/L (15-37) H 10/29/19 18:47 ALT 23 U/L (12-78) 10/29/19 18:47 Alkaline Phosphatase 141 U/L (45-117) H 10/29/19 18:47 Ammonia < 10.0 umol/L (11-32) L 10/29/19 20:00 Troponin I < 0.015 ng/ml (0-0.045) 10/29/19 18:47 Total Protein 9.2 gm/dl (6.4-8.2) H 10/29/19 18:47 Albumin 1.5 gm/dl (3.4-5.0) L 10/29/19 18:47 Globulin 7.7 gm/dl (2.5-4.0) H 10/29/19 18:47 Albumin/Globulin Ratio 0.2 (0.9-2) L 10/29/19 18:47 Lipase 201 U/L (73-393) 10/29/19 18:47 Procalcitonin 0.53 ng/ml (0-0.5) H 10/29/19 18:47 TSH 0.237 uIu/ml (0.300-4.500) L 10/29/19 18:47 Free T4 1.21 ng/dl (0.8-1.6) 10/29/19 18:47 COVID-19 Eval Order Covid19 Done at [facility] 10/29/19 21:00 COVID-19 PCR NEGATIVE (Negative) 10/29/19 21:[address] chest : 1. Limited evaluation of the pulmonary arterial tree secondary to contrast bolus timing and respiratory motion artifact. No central pulmonary emboli identified. 2. Moderate right pleural effusion. Near complete consolidation of the right lower lobe with air bronchograms. Correlate clinically to exclude pneumonia. 3. Emphysema. 4. Likely reactive mediastinal and hilar adenopathy. 5. Cirrhotic liver disease. 6. Nonobstructing right nephrolithiasis. 7. Additional findings as above. CT abdomen pelvis initial read: Large right pleural effusion, cholelithiasis without inflammation. Splenectomy. Anasarca. Embedded metallic densities left lower flank/chest wall. EKG as per my interpretation : Rate rate 110, sinus tachycardia, normal axis, T wave abnormalities inferior and septal leads
[2019-10-29] MEDS ORDERED: ACETAMINOPHEN 325 MG TAB PO PRN (23:57)
[2019-10-29] MEDS ORDERED: PROMETHAZINE HCL 12.5 MG in SODIUM CHLORIDE 0.9% 50 ML IV PRN (23:57)
[2019-10-30] MEDS: IPRATROPIUM BROMIDE NEB SOLN 0.02% 2.5 ML VIAL INH SCH ×6 (00:46→23:32)
[2019-10-30] MEDS: LEVALBUTEROL 1.25MG/0.5ML NEB INH SCH ×6 (00:46→23:32)
[2019-10-30] MEDS: OXYCODONE HCL 40 MG TABCR (OXYCONTIN) PO SCH ×4 (00:56→20:03)
[2019-10-30] MEDS: GABAPENTIN 800 MG TAB PO SCH ×3 (00:56→20:03)
[2019-10-30] MEDS: OXYCODONE HCL IR 5 MG TAB (IMMEDIATE RELEASE) PO STA ×2 (00:57→02:22)
[2019-10-30] MEDS ORDERED: XOPENEX/ATROVENT 1.25mg/0.5MG NEB COMBO NEB SCH (01:00)
[2019-10-30] MEDS ORDERED: PIPERACILL/TAZOBAC CONSULT ACTIVE PRN (01:14)
[2019-10-30] MEDS ORDERED: metroNIDAZOLE 500 MG/100 ML BAG IV STA (01:16)
[2019-10-30] MEDS ORDERED: IMIPENEM/CILASTATIN CONSULT ACTIVE PRN (01:27)
[2019-10-30] MEDS: ALBUMIN 25% 50 ML IV SCH ×2 (01:31→02:29)
[2019-10-30] MEDS ORDERED: PIPERACILLIN/TAZOBACTAM 3.375 GM in DEXTROSE 5% 100 ML IV SCH (02:00)
[2019-10-30] MEDS: IMIPENEM/CILASTATIN SODIUM 400 MG in DEXTROSE 5% 100 ML IV SCH ×3 (03:07→13:30)
[2019-10-30] MEDS: LEVOTHYROXINE SODIUM 200 MCG TABLET PO SCH (05:44)
[2019-10-30 06:16] LABS: Hematocrit (blood only) 27.8 % (42-52); Hemoglobin 8.1 g/dL (14.0-18.0); Mean Corpuscular Hemoglobin 22.8 pg (25-34); Mean Corpuscular Hgb Conc 29.1 g/dL (32-36); Mean Corpuscular Volume 78.3 fL (80-100); Mean Platelet Volume 9.4 fL (7.4-10.4); Nucleated RBC # (auto) 0.33 K/uL (0-0); Platelet Count 381 K/uL (130-400); RDW Standard Deviation 68.4 fL (36.4-46.3); Red Blood Count 3.55 M/uL (4.7-6.1)
[2019-10-30 06:21] LABS: ALC (manual) 1.75 K/uL (1.2-3.4); ANC (manual) 13.73 K/uL (1.4-6.5); Anisocytosis Present; Hypochromasia Present; Lymphocytes # (manual) 1.75 K/uL (1.2-3.4); Lymphocytes % (manual) 10.4 %; Metamyelocytes # (manual) 0.15 K/uL (0-0); Metamyelocytes % (manual) 0.9 %; Monocytes # (manual) 1.18 K/uL (0.11-0.59); Neutrophils # (manual) 13.73 K/uL (1.4-6.5); Neutrophils % (manual) 81.7 %; Polychromasia 1+; Target Cells 1+
[2019-10-30 06:27] LABS: BUN Creatinine Ratio 16.4 (10-20); Calcium 8.2 mg/dl (8.5-10.1); Creatinine Clr Calc Pharmacy 103.6 ml/min; Est GFR (African American) 113.9; Est GFR (Non-African American) 98.2; Potassium 4.5 mmol/L (3.5-5.1)
--- NOTE | 2019-10-30 07:26 | CT Scan Report ---
CT abd pelvis wo con CT DOSE: 332.07 mGy.cm HISTORY: Pain abd pain TECHNIQUE: Multiaxial CT images of the abdomen and pelvis were performed without contrast. A dose lo wering technique was utilized adhering to the principles of ALARA. COMPARISON STUDY: 08/07/2019 FINDINGS: Interval development of a large right pleural effusion. Right lower lobe consolidative maravilla ge. Minimal atelectatic change left lung base. Possible findings of mild hepatic cirrhosis. Right renal cyst unchanged. Evidence for midline incisio n. This is unchanged from the prior study. Gallstones within the gallbladder neck. Gallbladder wall t hickening. Nonobstructive bowel pattern. Mild body wall anasarca. Prior splenectomy. No evidence for renal hydronephrosis. IMPRESSION: 1. Progressive increase in volume over right pleural effusion with evidence for right lower lobe cons olidative change.. 2. Partial atelectasis left lung base. 3. Mild hepatic cirrhosis. 4. Small gallstone the gallbladder neck region with mild gallbladder wall thickening. 5. Nonobstructive bowel pattern. 6. Developing mild to moderate body wall anasarca. ACT 112: Negative or not required by law. The above report was generated using voice recognition software. It may contain grammatical, syntax or spelling errors. Electronically signed by: Shay Copeland M.D. 10/30/2019 7:25 AM
[2019-10-30] MEDS ORDERED: ENOXAPARIN INJ 40 MG/0.4 ML SYR SQ SCH (09:00)
[2019-10-30] MEDS: predniSONE 20 MG TAB PO SCH (09:12)
[2019-10-30] MEDS: LACTULOSE SYRUP 20 GM/30 ML UDC PO SCH ×3 (09:12→20:03)
[2019-10-30] MEDS: PANTOprazole 40 MG TAB PO SCH ×2 (09:12→20:04)
[2019-10-30] MEDS: VANCOMYCIN HCL 1,000 MG in SODIUM CHLORIDE 0.9% 250 ML IV SCH ×2 (09:12→20:01)
[2019-10-30] MEDS: OXYCODONE HCL IR 30 MG TAB (IMMEDIATE RELEASE) PO PRN ×2 (13:30→22:54)
--- NOTE | 2019-10-30 13:53 | Pharmacy Report ---
Pharmacy Abx Initial Consult - Date of Service October 30, 2019 - Pharmacy Dosing Scope Date of Consult: 10/30/2019 Consultation requested by: Dr. Jc Pharmacy is consulted to initiate Vancomycin + Primaxin IV dosing therapy, order appropriate labs and adjust drug dose/frequency. - Subjective The patient is a 69 year old M admitted on 10/29/19 22:29. - Objective Height: 5 ft 11 in Weight: 70.5 kg Vital Signs (Past 12hrs): Vital Signs Temp Pulse Pulse Pulse Resp BP Pulse Ox 10/30/19 11:16 78 16 94 10/30/19 11:14 37.1 C 78 18 128/82 94 10/30/19 10:35 72 10/30/19 07:18 36.6 C 77 18 144/85 H 96 10/30/19 06:49 76 18 97 10/30/19 02:43 36.6 C 92 H 23 133/79 93 Lab Results (24hrs): Laboratory Tests (24 Hours) 10/30/19 10/30/19 10/29/19 05:47 05:47 18:47 WBC 16.80 H D Creatinine 0.69 Est Cr Clr Drug Dosing 103.6 Procalcitonin 0.53 H 10/29/19 10/29/19 18:47 18:47 WBC 32.54 H* Creatinine 0.94 Est Cr Clr Drug Dosing 71.7 Procalcitonin Micro Results: 10/30/19 Unknown Gram Stain - Final Sputum, Expectorated Sputum Culture - Final 10/29/19 20:00 Aerobic Blood Culture - Pending Blood Anaerobic Blood Culture - Pending 10/29/19 18:47 Aerobic Blood Culture - Pending Blood Anaerobic Blood Culture - Pending - Risk Factors for Resistance * Resident at [facility] * Hospitalization for 48 hours or more within the past 90 days * Immunocompromised (asplenic) * History of infection with a multidrug-resistant organism: * ESBL K. pneumoniae from sputum in September 2019 & C. freundii in sputum in September 2019 * Antimicrobial use within the last 90 days include specific drugs, if known * Zosyn + Vanc + Rocephin + Doxy + Ertapenem - Assessment & Plan Assessment 69 year old M admitted secondary to cough and shortness of breath * H/o alcoholic cirrhosis, MALT lymphoma, Asplenia, 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, ongoing tobacco abuse, chronic steroid use, RCC s/p partial nephrectomy * IV Solumedrol received in ED as well as loading doses of Vancomycin and Zosyn and Metronidazole * Patient is afebrile. Satting in the mid-90's on 7 L oxymask. WBCs improved dramatically, 32.5k --> 16.8k. SCr improved from 0.94 --> 0.69 today. Lactate trending down as well. Procalcitonin was 0.53. * MRSA nasal swab positive. COVID-19 negative. Blood cultures pending. Plan Vancomycin + Primaxin for treatment of pneumonia Vancomycin IV * Estimated PK Parameters: Vd 0.6 L/kg, Tyson 0.09 hr-1, t1/2 ~ 8 hrs * Loading dose: 1500 mg (21 mg/kg) * Maintenance dose: 1000 mg IV (14 mg/kg) every 12 hours * Goal trough level: 15 mcg/mL * Trough level ordered for 10/30 @ 0730 prior to the 3rd maintenance dose. This will not reflect steady state levels. However, given previous admission data want to ensure patient's trough is greater than 10 mcg/mL. Imipenem/Cilastatin * Increased dose to 500 mg IV every 6 hours given improvement in renal function. Pharmacy will continue to follow and will adjust dose/frequency as necessary. Thank you.
--- NOTE | 2019-10-30 17:07 | Pulmonary Consultation ---
Date of Consultation October 30, 2019 Assessment & Plan (1) Acute hypoxemic respiratory failure: CT chest 10/29/2019: Centrilobular emphysema, moderate right-sided pleural effusion, right lower lobe pneumonia/collapse., Minimal atelectatic changes appreciated in the left lower lobe as well. --Acute hypoxic respiratory failure Likely secondary to right lower lobe pneumonia with right-sided pleural effusion Continue with broad-spectrum antibiotics Follow-up septic work-up Follow-up sputum culture Continue with O2 supplementation to keep saturation between 88-92% BiPAP nightly and PRN shortness of breath On 09/18/2019 sputum culture grew Klebsiella ESBL. Continue with imipenem/Cilastin --Right-sided pleural effusion New in onset compared to CT chest 09/27/2019 Could be parapneumonic effusion or related to underlying systolic CHF (although NT BNP was only 230) I did offer patient thoracentesis to be done. But patient wants no invasive intervention. Risk of not doing the procedure explained to the patient. Plan: Continue with antibiotics Follow-up septic work-up Please note the above document was generated using voice recognition software. It may contain grammatical, syntax or spelling errors. (2) Pneumonia: Laterality: right Lung location: lower lobe of lung Pneumonia type: due to unspecified organism Qualified Code(s): J18.9 - Pneumonia, u nspecified organism (3) Pleural effusion: History of Present Illness Attending Physician: Riley Ayala MD History of Present Illness 69-year-old -Citizen Of [place] male with past medical history of systolic CHF EF 40%, COPD, pulmonary hypertension, hypothyroidism, hypertension with recent admission for bilateral lower lobe pneumonia and intubation on 09/17/2019 with a admitted to the hospital with complaints of abdominal discomfort. And drowsiness. Patient has been on chronic oxycodone 3 times a day. Pulmonary was consulted for right-sided pleural effusion as well as bilateral lower lobe pneumonia and hypoxia. At the time of examination today patient states that his shortness of breath is improved to some extent well after coming to the hospital. He denies any chest pain right now. He wanted to actually go back to the long term and was asking the guards to take him back. Patient denies any chills. At the time of examination he was saturating 93% on 5 L oxygen mask Allergies Allergy/AdvReac Type Severity Reaction Status Date / Time lisinopril Allergy Severe Unknown Verified 10/29/19 18:32 YONNY Inhibitors Allergy Intermediate LIPS SWELL Verified 10/29/19 18:32 Cipro Allergy Mild PER RECORD Verified 09/19/17 13:41 ciprofloxacin Allergy Mild Mild rash Verified 09/16/19 13:57 Home Medications Home Medications Medication Instructions Recorded Confirmed Type isosorbide mononitrate 30 mg PO QAM 03/07/18 10/29/19 History tamsulosin 0.4 mg PO HS 03/07/18 10/29/19 History levothyroxine 200 mcg PO QAM 10/16/18 10/29/19 History gabapentin 800 mg PO BID 03/07/19 10/29/19 History lactulose 30 ml PO TID 03/07/19 10/29/19 History Alvesco 1 puff INHALATION BID 05/08/19 10/29/19 History mirtazapine 45 mg PO HS 05/08/19 10/29/19 History Gaviscon 30 ml PO QID 08/07/19 10/29/19 History diphenhydramine HCl 25 mg PO HS 09/16/19 10/29/19 History magnesium oxide 400 mg PO BID #60 tab 10/04/19 10/29/19 Rx pantoprazole 40 mg PO BID #60 tab 10/04/19 10/29/19 Rx guaifenesin [Mucinex] 1,200 mg PO BID 10/29/19 10/29/19 History levalbuterol tartrate [Xopenex HFA] 2 inh INHALATION QID 10/29/19 10/29/19 History oxycodone [OxyContin] 40 mg PO BID 10/29/19 10/29/19 History oxycodone [Roxicodone] 30 mg PO TID PRN 10/29/19 10/29/19 History prednisone See Rx Instructions .ROUTE .COMPLEX 10/29/19 10/29/19 History umeclidinium [Incruse Ellipta] 1 inh INHALATION DAILY 10/29/19 10/29/19 History vitamin A and D [A and D] 1 applic TOPICAL BID 10/29/19 10/29/19 History Patient History Medical History (Updated 10/30/19 @ 17:07 by Nicole You MD) Anemia CAD (coronary artery disease) Cholelithiasis without cholecystitis Chronic pain Chronic sinusitis Cirrhosis Secondary to alcohol COPD (chronic obstructive pulmonary disease) Esophageal varices 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 GERD (gastroesophageal reflux disease) HLD (hyperlipidemia) HTN (hypertension) Hypothyroidism Malignant neoplasm of kidney Left side- s/p partial nephrectomy Neuropathy Portal hypertension PVD (peripheral vascular disease) Surgical History History of appendectomy History of partial nephrectomy History of splenectomy Hx of colonoscopy Family History Mother Hypothyroidism Father Myocardial infarction Social History Smoking Status: Former smoker Cigarettes Per Day: 12; Second Hand Exposure: Yes; Hx Alcohol Use: No Hx Substance Use: No Preferred Language: Urdu Communication Ability: Effective Precision Lathe Operator Required: No Beliefs That Will Affect Care: None Current Living Situation: Other Current Living Situation Comment: long term current occupational status: unemployed Feels Safe at Home: Yes Review of Systems Review of Systems: All systems reviewed & are unremarkable except as noted in HPI & below Physical Exam Physical Exam: Constitutional: No acute distress HEENT: EOMI, PERRLA Respiratory system: Decreased air entry bilaterally, more decreased on the right side, positive crackles bilateral lower lobes, no wheeze, no rhonchi CVS: S1-S2 positive, no murmurs or gallops Abdomen: Soft, nontender, nondistended, positive bowel sounds x4 Extremities: +2 pulses bilaterally radialis/ dorsalis pedis, no cyanosis, +1 pitting edema bilateral lower extremity Neuro: Awake alert oriented x3 Psych: Normal mood and affect Skin: no rashes, warm and dry Lymphatic: no cervical or axillary lymphadenopathy Results & Data Results & Data ([facility]) Vital Signs (Past 12 Hours) Vital Signs Temp Pulse Pulse Pulse Resp BP Pulse Ox 10/30/19 15:59 36.4 C L 80 18 136/82 93 10/30/19 15:14 78 18 93 10/30/19 15:00 83 10/30/19 11:16 78 16 94 10/30/19 11:14 37.1 C 78 18 128/82 94 10/30/19 10:35 72 10/30/19 07:18 36.6 C 77 18 144/85 H 96 10/30/19 06:49 76 18 97 10/30/19 05:47 10/30/19 05:47 PG Care Time/CCT Total # of Minutes Spent Total Time Spent with Patient: Total time spent is greater than 50% in coordination of care (as documented) at patient's floor/unit and/or counseling patient: Coding Level of Care Code 74863 Initial Inpt Care Lvl 3 Diagnoses Acute hypoxemic respiratory failure J96.01 Pneumonia J18.9 Laterality: right Lung location: lower lobe of lung Pneumonia type: due to unspecified organism Pleural effusion J90
--- NOTE | 2019-10-30 17:37 | Hospitalist Progress Note ---
Date of Service October 30, 2019 Assessment & Plan (1) Acute hypoxemic respiratory failure: (2) Sepsis: (3) Pneumonia: (4) Pleural effusion: Severe sepsis secondary to above MRSA/ESBL Klebsiella as per records -- improved clinically today wean off oxygen as able -- continue Vanco + Imipenem, Prednisone, Nebs ff up cultures Nasal MRSA Positive -- Bipap at HS Right Sided Pleural Effusion -- parapneumonic vs. CHF systolic -- patient declining thoracentesis monitor closely Diarrhea secondary to lactulose Rule out C. 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 SCDs RE recent UGIB Full code Admission and Anticipated Discharge Date Admission Date: October 29, 2019 Subjective ff up for respiratory failure, pneumonia, pleural effusion- right seen resting in bed, comfortable, watching TV not in distress, on oxymask states he feels improved denies active shortness of breath (+) dry cough denies chest pain has usual epigastric pain- chronic as per patient, no nausea tolerating diet well no other symptoms Review of Systems Review of Systems: All systems reviewed & are unremarkable except as noted in HPI & below Physical Exam Physical Exam: General- oriented x 3, not in distress, speaks in sentences with no effort or accessory muscle use Head- atraumatic Eyes- PERRL, EOMI, anicteric ENT- oropharynx clear Neck- supple, no JVD, no adenopathy, no thyromegaly; carotids +2/2, no bruits appreciated Lungs- decreased breath sounds on the right base, good air entry bilaterally Heart- normal rate, regular rhythm; no murmur, no gallop, no rub appreciated Abdomen- normal bowel sounds, nondistended, soft, nontender, no masses or hepatosplenomegaly Extremities- no pretibial edema, no calf tenderness; peripheral pulses intact Neuro- alert, oriented x 3; CN 2-12 grossly intact; motor 5/5 bilaterally;sensation 100% on all extremities; no other gross focal neurologic deficits Skin- warm & dry Results & Data Results & Data ([facility]) Vital Signs (Past 12 Hours) Vital Signs Temp Pulse Pulse Pulse Resp BP Pulse Ox 10/30/19 15:59 36.4 C L 80 18 136/82 93 10/30/19 15:14 78 18 93 10/30/19 15:00 83 10/30/19 11:16 78 16 94 10/30/19 11:14 37.1 C 78 18 128/82 94 10/30/19 10:35 72 10/30/19 07:18 36.6 C 77 18 144/85 H 96 10/30/19 06:49 76 18 97 Laboratory Results Laboratory Results - last 24 hr 10/29/19 10/29/19 10/29/19 18:47 18:47 18:47 WBC 32.54 H* RBC 3.92 L Hgb 9.3 L Hct 30.5 L MCV 77.8 L MCH 23.7 L MCHC 30.5 L RDW Std Deviation 68.0 H RDW Coeff of Alin 24.3 H Plt Count 431 H MPV 9.6 Absolute Nucleated RBC 0.48 H Nucleated RBC % (auto) 1.5 Neutrophils % (Manual) 49.2 Lymphocytes % (Manual) 40.5 Monocytes % (Manual) 10.3 Metamyelocytes % (Man) Neutrophils # (Manual) 16.01 H Total Absolute Neuts 16.01 H Lymphocytes # (Manual) 13.18 H Total Abs Lymphocytes 13.18 H Monocytes # (Manual) 3.35 H Metamyelocytes # (Man) Polychromasia 1+ Hypochromasia Anisocytosis Target Cells 1+ Echinocytes 1+ PT 11.6 INR 1.1 ABG pH ABG pCO2 ABG pO2 ABG HCO3 ABG O2 Saturation ABG Base Excess Shan Test VBG pH VBG pCO2 VBG pO2 VBG HCO3 VBG O2 Saturation VBG Base Excess Barometric Pressure Oxygen Given Sodium 133 L Potassium 4.3 Chloride 104 Carbon Dioxide 24 Anion Gap 5.0 BUN 12 Creatinine 0.94 Est Cr Clr Drug Dosing 71.7 Est GFR ( Amer) 96.8 Est GFR (Non-Af Amer) 83.6 BUN/Creatinine Ratio 13.3 Glucose 72 Lactate Calcium 9.5 Magnesium 2.0 Total Bilirubin 0.8 AST 85 H ALT 23 Alkaline Phosphatase 141 H Ammonia Troponin I < 0.015 NT-Pro-B Natriuret Pep Total Protein 9.2 H Albumin 1.5 L Globulin 7.7 H Albumin/Globulin Ratio 0.2 L Lipase 201 Procalcitonin TSH 0.237 L Free T4 1.21 Nasal Screen MRSA (PCR) COVID-19 Eval Order COVID-19 PCR 10/29/19 10/29/19 10/29/19 18:47 18:47 20:00 WBC RBC Hgb Hct MCV MCH MCHC RDW Std Deviation RDW Coeff of Alin Plt Count MPV Absolute Nucleated RBC Nucleated RBC % (auto) Neutrophils % (Manual) Lymphocytes % (Manual) Monocytes % (Manual) Metamyelocytes % (Man) Neutrophils # (Manual) Total Absolute Neuts Lymphocytes # (Manual) Total Abs Lymphocytes Monocytes # (Manual) Metamyelocytes # (Man) Polychromasia Hypochromasia Anisocytosis Target Cells Echinocytes PT INR ABG pH ABG pCO2 ABG pO2 ABG HCO3 ABG O2 Saturation ABG Base Excess Shan Test VBG pH VBG pCO2 VBG pO2 VBG HCO3 VBG O2 Saturation VBG Base Excess Barometric Pressure Oxygen Given Sodium Potassium Chloride Carbon Dioxide Anion Gap BUN Creatinine Est Cr Clr Drug Dosing Est GFR ( Amer) Est GFR (Non-Af Amer) BUN/Creatinine Ratio Glucose Lactate 2.4 H* Calcium Magnesium Total Bilirubin AST ALT Alkaline Phosphatase Ammonia < 10.0 L Troponin I NT-Pro-B Natriuret Pep Total Protein Albumin Globulin Albumin/Globulin Ratio Lipase Procalcitonin 0.53 H TSH Free T4 Nasal Screen MRSA (PCR) COVID-19 Eval Order COVID-19 PCR 10/29/19 10/29/19 10/29/19 20:00 20:49 21:00 WBC RBC Hgb Hct MCV MCH MCHC RDW Std Deviation RDW Coeff of Alin Plt Count MPV Absolute Nucleated RBC Nucleated RBC % (auto) Neutrophils % (Manual) Lymphocytes % (Manual) Monocytes % (Manual) Metamyelocytes % (Man) Neutrophils # (Manual) Total Absolute Neuts Lymphocytes # (Manual) Total Abs Lymphocytes Monocytes # (Manual) Metamyelocytes # (Man) Polychromasia Hypochromasia Anisocytosis Target Cells Echinocytes PT INR ABG pH 7.38 ABG pCO2 33 L ABG pO2 74 L ABG HCO3 19 ABG O2 Saturation 92.6 ABG Base Excess -5.2 Shan Test Pos VBG pH Cancelled VBG pCO2 Cancelled VBG pO2 Cancelled VBG HCO3 Cancelled VBG O2 Saturation Cancelled VBG Base Excess Cancelled Barometric Pressure Cancelled 733.7 Oxygen Given 15L O2 Sodium Potassium Chloride Carbon Dioxide Anion Gap BUN Creatinine Est Cr Clr Drug Dosing Est GFR ( Amer) Est GFR (Non-Af Amer) BUN/Creatinine Ratio Glucose Lactate Calcium Magnesium Total Bilirubin AST ALT Alkaline Phosphatase Ammonia Troponin I NT-Pro-B Natriuret Pep Total Protein Albumin Globulin Albumin/Globulin Ratio Lipase Procalcitonin TSH Free T4 Nasal Screen MRSA (PCR) COVID-19 Eval Order Covid19 Done at [facility] COVID-19 PCR 10/29/19 10/30/19 10/30/19 21:00 00:21 00:22 WBC RBC Hgb Hct MCV MCH MCHC RDW Std Deviation RDW Coeff of Alin Plt Count MPV Absolute Nucleated RBC Nucleated RBC % (auto) Neutrophils % (Manual) Lymphocytes % (Manual) Monocytes % (Manual) Metamyelocytes % (Man) Neutrophils # (Manual) Total Absolute Neuts Lymphocytes # (Manual) Total Abs Lymphocytes Monocytes # (Manual) Metamyelocytes # (Man) Polychromasia Hypochromasia Anisocytosis Target Cells Echinocytes PT INR ABG pH ABG pCO2 ABG pO2 ABG HCO3 ABG O2 Saturation ABG Base Excess Shan Test VBG pH VBG pCO2 VBG pO2 VBG HCO3 VBG O2 Saturation VBG Base Excess Barometric Pressure Oxygen Given Sodium Potassium Chloride Carbon Dioxide Anion Gap BUN Creatinine Est Cr Clr Drug Dosing Est GFR ( Amer) Est GFR (Non-Af Amer) BUN/Creatinine Ratio Glucose Lactate 3.6 H* Calcium Magnesium Total Bilirubin AST ALT Alkaline Phosphatase Ammonia Troponin I NT-Pro-B Natriuret Pep 230 Total Protein Albumin Globulin Albumin/Globulin Ratio Lipase Procalcitonin TSH Free T4 Nasal Screen MRSA (PCR) COVID-19 Eval Order COVID-19 PCR NEGATIVE 10/30/19 10/30/19 10/30/19 05:47 05:47 05:47 WBC 16.80 H D RBC 3.55 L Hgb 8.1 L Hct 27.8 L MCV 78.3 L MCH 22.8 L MCHC 29.1 L RDW Std Deviation 68.4 H RDW Coeff of Alin 24.0 H Plt Count 381 MPV 9.4 Absolute Nucleated RBC 0.33 H Nucleated RBC % (auto) 2.0 Neutrophils % (Manual) 81.7 Lymphocytes % (Manual) 10.4 Monocytes % (Manual) 7.0 Metamyelocytes % (Man) 0.9 Neutrophils # (Manual) 13.73 H Total Absolute Neuts 13.73 H Lymphocytes # (Manual) 1.75 Total Abs Lymphocytes 1.75 Monocytes # (Manual) 1.18 H Metamyelocytes # (Man) 0.15 H Polychromasia 1+ Hypochromasia Present Anisocytosis Present Target Cells 1+ Echinocytes PT INR ABG pH ABG pCO2 ABG pO2 ABG HCO3 ABG O2 Saturation ABG Base Excess Shan Test VBG pH VBG pCO2 VBG pO2 VBG HCO3 VBG O2 Saturation VBG Base Excess Barometric Pressure Oxygen Given Sodium 137 Potassium 4.5 Chloride 110 H Carbon Dioxide 19 L Anion Gap 8.0 BUN 11 Creatinine 0.69 Est Cr Clr Drug Dosing 103.6 Est GFR ( Amer) 113.9 Est GFR (Non-Af Amer) 98.2 BUN/Creatinine Ratio 16.4 Glucose 134 H Lactate 2.0 Calcium 8.2 L Magnesium Total Bilirubin AST ALT Alkaline Phosphatase Ammonia Troponin I NT-Pro-B Natriuret Pep Total Protein Albumin Globulin Albumin/Globulin Ratio Lipase Procalcitonin TSH Free T4 Nasal Screen MRSA (PCR) COVID-19 Eval Order COVID-19 PCR 10/30/19 Unknown WBC RBC Hgb Hct MCV MCH MCHC RDW Std Deviation RDW Coeff of Alin Plt Count MPV Absolute Nucleated RBC Nucleated RBC % (auto) Neutrophils % (Manual) Lymphocytes % (Manual) Monocytes % (Manual) Metamyelocytes % (Man) Neutrophils # (Manual) Total Absolute Neuts Lymphocytes # (Manual) Total Abs Lymphocytes Monocytes # (Manual) Metamyelocytes # (Man) Polychromasia Hypochromasia Anisocytosis Target Cells Echinocytes PT INR ABG pH ABG pCO2 ABG pO2 ABG HCO3 ABG O2 Saturation ABG Base Excess Shan Test VBG pH VBG pCO2 VBG pO2 VBG HCO3 VBG O2 Saturation VBG Base Excess Barometric Pressure Oxygen Given Sodium Potassium Chloride Carbon Dioxide Anion Gap BUN Creatinine Est Cr Clr Drug Dosing Est GFR ( Amer) Est GFR (Non-Af Amer) BUN/Creatinine Ratio Glucose Lactate Calcium Magnesium Total Bilirubin AST ALT Alkaline Phosphatase Ammonia Troponin I NT-Pro-B Natriuret Pep Total Protein Albumin Globulin Albumin/Globulin Ratio Lipase Procalcitonin TSH Free T4 Nasal Screen MRSA (PCR) Positive A COVID-19 Eval Order COVID-19 PCR (1) Sepsis Acute respiratory failure type: with hypoxia Sepsis acute organ dysfunction status: with acute organ dysfunction Sepsis type: sepsis due to unspecified organism Severe sepsis acute organ dysfunction type: acute respiratory failure Severe sepsis shock status: without septic shock Qualified Code(s): A41.9 - Sepsis, unspecified organism; R65.20 - Severe sepsis without septic shock; J96.01 - Acute respiratory failure with hypoxia (2) Pneumonia Laterality: right Lung location: lower lobe of lung Pneumonia type: due to unspecified organism Qualified Code(s): J18.9 - Pneumonia, unspecified organism
[2019-10-30] MEDS: IMIPENEM/CILASTATIN SODIUM 500 MG in DEXTROSE 5% 100 ML IV SCH (20:00)
[2019-10-30] MEDS: TAMSULOSIN HCL 0.4 MG CAP PO SCH (20:03)
[2019-10-30] MEDS ORDERED: MIRTAZAPINE SOLTAB 15 MG PO SCH (21:00)
[2019-10-31] MEDS: IMIPENEM/CILASTATIN SODIUM 500 MG in DEXTROSE 5% 100 ML IV SCH ×4 (01:54→20:05)
[2019-10-31 02:39] LABS: Appearance Urine Clear (Clear); Bacteria Urine Automated Negative (Negative); Blood Urine Negative (Negative); Color Urine Dark Yellow; Glucose Urine UA Negative (Negative); Ketones Urine Trace (Negative); Leukocyte Esterase Urine Negative (Negative); Nitrite Urine Negative (Negative); Protein Urine Trace (Negative); RBC Urine Automated 0-4 /hpf (0-4); Urobilinogen Urine Negative (Negative)
[2019-10-31 02:44] LABS: Bilirubin Urine Negative (Negative); Ictotest Urine Negative (Negative)
[2019-10-31] MEDS: IPRATROPIUM BROMIDE NEB SOLN 0.02% 2.5 ML VIAL INH SCH ×6 (03:40→23:18)
[2019-10-31] MEDS: LEVALBUTEROL 1.25MG/0.5ML NEB INH SCH ×6 (03:40→23:18)
[2019-10-31] MEDS: LEVOTHYROXINE SODIUM 200 MCG TABLET PO SCH (05:40)
--- NOTE | 2019-10-31 06:03 | Electrocardiogram Report ---
Test Reason : Blood Pressure : / mmHG Vent. Rate : 109 BPM Atrial Rate : 109 BPM P-R Int : 114 ms QRS Dur : 082 ms QT Int : 332 ms P-R-T Axes : 049 001 017 degrees QTc Int : 447 ms Poor data quality, interpretation may be adversely affected Sinus tachycardia Nonspecific T wave abnormality Abnormal ECG When compared with ECG of 22-SEP-2019 12:55, T wave inversion now evident in Anterior leads Confirmed by Chris Balderas ([id number]) on 10/31/2019 6:02:35 AM Referred By: REFERRED SELF Confirmed By:Chris Balderas
[2019-10-31] MEDS ORDERED: VANCOMYCIN TROUGH ONE (07:30)
[2019-10-31] MEDS: OXYCODONE HCL 40 MG TABCR (OXYCONTIN) PO SCH (08:06)
[2019-10-31] MEDS: GABAPENTIN 800 MG TAB PO SCH (08:07)
[2019-10-31] MEDS: PANTOprazole 40 MG TAB PO SCH ×2 (08:09→21:05)
[2019-10-31] MEDS: LACTULOSE SYRUP 20 GM/30 ML UDC PO SCH ×4 (08:10→20:54)
[2019-10-31] MEDS: predniSONE 20 MG TAB PO SCH (08:10)
[2019-10-31 08:28] LABS: Creatinine Clr Calc Pharmacy 85.5 ml/min; Est GFR (African American) 103.5; Est GFR (Non-African American) 89.3
[2019-10-31 08:38] LABS: Thyroid Stimulating Hormone 0.425 uIu/ml (0.300-4.500)
--- NOTE | 2019-10-31 08:46 | Pharmacy Report ---
Pharmacy Abx Dose Progress Nt - Date of Service October 31, 2019 - Pharmacy Dosing Scope The patient is currently receiving the following antimicrobial agents per Pharmacy consult: VANCOMYCIN 1,000 mg IV every 12 hours Pt is also recieving Imipenem 400mg IV Q6hrs - Objective Vital Signs (Past 12hrs): Vital Signs Temp Pulse Pulse Resp BP BP Pulse Ox 10/31/19 07:51 37.1 C 90 17 137/83 91 10/31/19 07:46 84 10/31/19 07:03 84 18 87 L 10/31/19 04:08 71 10/31/19 03:16 37 C 81 16 122/78 93 10/30/19 23:34 71 18 92 10/30/19 22:59 36.5 C 71 18 145/86 H 92 Lab Results (24hrs): Laboratory Tests (24 Hours) 10/31/19 10/31/19 07:25 07:25 Creatinine 0.87 Est Cr Clr Drug Dosing 85.5 Vancomycin Trough 13.0 Micro Results: 10/29/19 20:00 Anaerobic Blood Culture - Final Blood 10/30/19 Unknown Gram Stain - Final Sputum, Expectorated Sputum Culture - Final - Risk Factors for Resistance * Resident at [facility], [place] * Hospitalization for 48 hours or more within the past 90 days * Immunocompromised (asplenic) * History of infection with a multidrug-resistant organism: * ESBL K. pneumoniae from sputum in September 2019 & C. freundii in sputum in September 2019 * Antimicrobial use within the last 90 days include specific drugs, if known * Zosyn + Vanc + Rocephin + Doxy + Ertapenem - Assessment & Plan - Assessment & Plan Assessment 69 year old M admitted secondary to cough and shortness of breath; receiving Vanco + imipenem for right lower lobe pneumonia with right-sided pleural effusion * H/o alcoholic cirrhosis, MALT lymphoma, Asplenia, 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, ongoing tobacco abuse, chronic steroid use, RCC s/p partial nephrectomy * MRSA nasal swab positive. COVID-19 negative. Blood cultures negative * Pt with hx of MDRO Vancomycin trough level this AM was 13 mcg/ml This is slightly sub-therapeutic; however, dosing is not yet at steady state. Vancomycin accumulation likely with repeated dosing. Will not change dosing at this time - repeat trough in 48 hrs and re-assess Plan Vancomycin + Primaxin for treatment of pneumonia Vancomycin IV * Continue Vancomycin 1,000mg (14.2mg/kg) IV Q12hrs Imipenem/Cilastatin * Continue renally dose adjusted for CrCl < 90 ml/min to 400 mg IV every 6 hours
[2019-10-31] MEDS: VANCOMYCIN HCL 1,000 MG in SODIUM CHLORIDE 0.9% 250 ML IV SCH ×2 (09:28→20:53)
[2019-10-31 10:19] LABS: Mean Corpuscular Hgb Conc 30.1 g/dL (32-36); Nucleated RBC # (auto) 0.74 K/uL (0-0); Nucleated RBC % (auto) 3.1 %; Platelet Count 389 K/uL (130-400)
[2019-10-31 11:08] LABS: ALC (manual) 3.95 K/uL (1.2-3.4); ANC (manual) 16.65 K/uL (1.4-6.5); Hematocrit (blood only) 31.2 % (42-52); Hemoglobin 9.4 g/dL (14.0-18.0); Lymphocytes # (manual) 3.95 K/uL (1.2-3.4); Lymphocytes % (manual) 16.5 %; Mean Corpuscular Hemoglobin 23.8 pg (25-34); Monocytes # (manual) 3.11 K/uL (0.11-0.59); Myelocytes # (manual) 0.22 K/uL (0-0); Myelocytes % (manual) 0.9 %; Neutrophils # (manual) 16.65 K/uL (1.4-6.5); Neutrophils % (manual) 69.6 %; RDW Coefficient of Variation 24.2 % (11.5-14.5); RDW Standard Deviation 68.5 fL (36.4-46.3); Red Blood Count 3.95 M/uL (4.7-6.1); Target Cells 1+; White Blood Count 23.92 K/uL (4.8-10.8)
--- NOTE | 2019-10-31 12:03 | Pulmonology Progress Note ---
Date of Service October 31, 2019 Assessment & Plan (1) Acute hypoxemic respiratory failure: CT chest 10/29/2019: Centrilobular emphysema, moderate right-sided pleural effusion, right lower lobe pneumonia/collapse, Minimal atelectatic changes appreciated in the left lower lobe as well. --Acute hypoxic respiratory failure Likely secondary to right lower lobe pneumonia with right-sided pleural effusion Continue with broad-spectrum antibiotics f/u septic work up Continue with O2 supplementation to keep saturation between 88-92% BiPAP nightly and PRN shortness of breath On 09/18/2019 sputum culture grew Klebsiella ESBL. Continue with imipenem/Cilastin --Right-sided pleural effusion New in onset compared to CT chest 09/27/2019 Could be parapneumonic effusion or related to underlying systolic CHF (although NT BNP was only 230) I did offer patient thoracentesis to be done and it could be infectious fluid. But patient wants no invasive intervention. Risk of not doing the procedure explained to the patient. Plan: Continue with antibiotics Put patient on BiPAP if the patient desaturates 12/6 50% with backup rate of 16. Patient does have significant bilateral lower lobe pneumonia on top of right- sided pleural effusion. But he still refusing to have intervention done. Recommend tapering steroids off. Patient being on chronic opioids is also not helping his respiratory drive. As patient has been refusing thoracentesis. No further intervention from pulmonary perspective. Continue with above. Recall if needed. Please note the above document was generated using voice recognition software. It may contain grammatical, syntax or spelling errors. (2) Pneumonia: Laterality: right Lung location: lower lobe of lung Pneumonia type: due to unspecified organism Qualified Code(s): J18.9 - Pneumonia, unspecified organism (3) Pleural effusion: Admission and Anticipated Discharge Date Admission Date: October 29, 2019 Subjective Patient seen and examined at bedside. Somnolent. Answering questions on waking up. Saturating 88% on 3 L NC. Still refusing to have thoracentesis done. Review of Systems Review of Systems: All systems reviewed & are unremarkable except as noted in Subjective Physical Exam Physical Exam: Constitutional: No acute distress HEENT: EOMI, PERRLA Respiratory system: Decreased air entry bilaterally, more decreased on the right side, positive crackles bilateral lower lobes, no wheeze, no rhonchi CVS: S1-S2 positive, no murmurs or gallops Abdomen: Soft, nontender, nondistended, positive bowel sounds x4 Extremities: +2 pulses bilaterally radialis/ dorsalis pedis, no cyanosis, mild edema bilateral lower extremity Neuro: Awake alert oriented x3 Psych: Somnolent G/u: No jacques Skin: no rashes, warm and dry Lymphatic: no cervical or axillary lymphadenopathy Results & Data Results & Data ([facility]) Vital Signs (Past 12 Hours) Vital Signs Temp Pulse Pulse Resp BP BP Pulse Ox 10/31/19 10:56 20 94 10/31/19 07:51 37.1 C 90 17 137/83 91 10/31/19 07:46 84 10/31/19 07:03 84 18 87 L 10/31/19 04:08 71 10/31/19 03:16 37 C 81 16 122/78 93 10/31/19 07:23 10/31/19 07:25 PG Care Time/CCT Total # of Minutes Spent Total Time Spent with Patient: Total time spent is greater than 50% in coordination of care (as documented) at patient's floor/unit and/or counseling patient: Coding Level of Care Code 16117 Subseq Hosp Care Lvl 3 Diagnoses Acute hypoxemic respiratory failure J96.01 Pneumonia J18.9 Laterality: right Lung location: lower lobe of lung Pneumonia type: due to unspecified organism Pleural effusion J90
[2019-10-31 16:47] LABS: Base Excess ABG -1.7 mEq/L (-9-1.8); HCO3 ABG 22 mmol/L (19-24); Oxygen Saturation ABG 87.7 % (90-95); PCO2 ABG 32 mmHg (35-46); PO2 ABG 55 mmHg (80-95); pH ABG 7.45 (7.35-7.45)
[2019-10-31 16:50] LABS: Allen Test Pos (Pos)
--- NOTE | 2019-10-31 17:09 | Hospitalist Progress Note ---
Date of Service October 31, 2019 Assessment & Plan (1) Acute hypoxemic respiratory failure: (2) Sepsis: (3) Pneumonia: (4) Pleural effusion: Severe sepsis secondary to above MRSA/ESBL Klebsiella as per records -- wean off oxygen as able -- continue Vanco + Imipenem, taper Prednisone, Nebs blood cultures: negative so far sputum culture: recommend repeat collection Nasal MRSA Positive -- Pulm SVC recommendations Right Sided Pleural Effusion -- parapneumonic vs. CHF systolic -- patient declining thoracentesis monitor closely Drowsiness -- ABG: no hypercapnea -- check ammonia level -- Oxycodone, Gabapentin with holding parameters Diarrhea secondary to lactulose Rule out C. 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 SCDs RE recent UGIB Full code Admission and Anticipated Discharge Date Admission Date: October 29, 2019 Subjective ff up for pneumonia, pleural effusion seen resting in bed, drowsy but comfortable not in distress states breathing is ok, no cough noted denies other symptoms full ROS difficult to assess due to drowsiness Review of Systems Review of Systems: All systems reviewed & are unremarkable except as noted in HPI & below Physical Exam Physical Exam: General- drowsy, not in distress, speaks in sentences with no effort or accessory muscle use Eyes- anicteric Neck- no JVD Lungs- decreased breath sounds on the righ, mild rales no wheezing Heart- normal rate, regular rhythm; no murmurs Abdomen- normal bowel sounds, nondistended, soft, nontender Extremities- no pretibial edema, no calf tenderness Neuro-drowsy; no gross focal neurologic deficits Skin- warm & dry Results & Data Results & Data ([facility]) Vital Signs (Past 12 Hours) Vital Signs Temp Pulse Pulse Pulse Resp BP Pulse Ox 10/31/19 16:00 37.2 C 98 H 18 128/75 90 10/31/19 15:54 94 H 10/31/19 15:38 89 18 91 10/31/19 15:12 37.2 C 90 18 138/86 100 10/31/19 12:01 37.1 C 95 H 18 138/85 88 L 10/31/19 10:56 20 94 10/31/19 07:51 37.1 C 90 17 137/83 91 10/31/19 07:46 84 10/31/19 07:03 84 18 87 L Laboratory Results Laboratory Results - last 24 hr 10/31/19 10/31/19 10/31/19 07:23 07:25 07:25 WBC 23.92 H RBC 3.95 L Hgb 9.4 L Hct 31.2 L MCV 79.0 L MCH 23.8 L MCHC 30.1 L RDW Std Deviation 68.5 H RDW Coeff of Alin 24.2 H Plt Count 389 MPV 10.0 Absolute Nucleated RBC 0.74 H Nucleated RBC % (auto) 3.1 Neutrophils % (Manual) 69.6 Lymphocytes % (Manual) 16.5 Monocytes % (Manual) 13.0 Myelocytes % (Man) 0.9 Neutrophils # (Manual) 16.65 H Total Absolute Neuts 16.65 H Lymphocytes # (Manual) 3.95 H Total Abs Lymphocytes 3.95 H Monocytes # (Manual) 3.11 H Myelocytes # (Manual) 0.22 H Target Cells 1+ ABG pH ABG pCO2 ABG pO2 ABG HCO3 ABG O2 Saturation ABG Base Excess Shan Test Barometric Pressure Oxygen Given Creatinine 0.87 Est Cr Clr Drug Dosing 85.5 Est GFR ( Amer) 103.5 Est GFR (Non-Af Amer) 89.3 TSH 0.425 Urine Color Urine Appearance Urine pH Ur Specific [place] Urine Protein Urine Glucose (UA) Urine Ketones Urine Blood Urine Nitrite Urine Bilirubin Urine Urobilinogen Ur Leukocyte Esterase Urine WBC (Auto) Urine RBC (Auto) U Hyaline Cast (Auto) U Epithel Cells (Auto) Urine Bacteria (Auto) Vancomycin Trough 13.0 10/31/19 10/31/19 16:24 Unknown WBC RBC Hgb Hct MCV MCH MCHC RDW Std Deviation RDW Coeff of Alin Plt Count MPV Absolute Nucleated RBC Nucleated RBC % (auto) Neutrophils % (Manual) Lymphocytes % (Manual) Monocytes % (Manual) Myelocytes % (Man) Neutrophils # (Manual) Total Absolute Neuts Lymphocytes # (Manual) Total Abs Lymphocytes Monocytes # (Manual) Myelocytes # (Manual) Target Cells ABG pH 7.45 ABG pCO2 32 L ABG pO2 55 L ABG HCO3 22 ABG O2 Saturation 87.7 L ABG Base Excess -1.7 Shan Test Pos Barometric Pressure 731.8 Oxygen Given FLOW RATE 2 Creatinine Est Cr Clr Drug Dosing Est GFR ( Amer) Est GFR (Non-Af Amer) TSH Urine Color Dark Yellow Urine Appearance Clear Urine pH 5.0 Ur Specific [place] 1.030 Urine Protein Trace H Urine Glucose (UA) Negative Urine Ketones Trace H Urine Blood Negative Urine Nitrite Negative Urine Bilirubin Negative Urine Urobilinogen Negative Ur Leukocyte Esterase Negative Urine WBC (Auto) 1-5 Urine RBC (Auto) 0-4 U Hyaline Cast (Auto) 5-10 H U Epithel Cells (Auto) 10-20 H Urine Bacteria (Auto) Negative Vancomycin Trough (1) Sepsis Acute respiratory failure type: with hypoxia Sepsis acute organ dysfunction status: with acute organ dysfunction Sepsis type: sepsis due to unspecified organism Severe sepsis acute organ dysfunction type: acute respiratory failure Severe sepsis shock status: without septic shock Qualified Code(s): A41.9 - Sepsis, unspecified organism; R65.20 - Severe sepsis without septic shock; J96.01 - Acute respiratory failure with hypoxia (2) Pneumonia Laterality: right Lung location: lower lobe of lung Pneumonia type: due to unspecified organism Qualified Code(s): J18.9 - Pneumonia, unspecified organism
[2019-10-31] MEDS: LACTOBACILLUS ACIDOPHILUS (FLORANEX) TAB PO SCH ×2 (17:13→17:32)
[2019-10-31] MEDS ORDERED: NALOXONE HCL 0.4 MG/1 ML VIAL/CARP IV STA (20:23)
--- NOTE | 2019-10-31 20:43 | Communication Note ---
Date of Service: October 31, 2019 Notified by RN around 820 PM of increased patient lethargy. Subsequent improvement of mentation following Narcan administration as per RN. AP Opioid narcosis History chronic pain on OxyContin Hold [id number] OxyContin and neuropsychotropic meds for now until patient more awake. Decrease PRN OxyIR dose for now Narcan as needed. Will request AM provider to re-enlist Palliative Care assistance for recommendations pertinent to decreasing patient narcotic regimen dosage in consideration of recurrent admissions for aspiration pneumonia/encephalopathy.
[2019-10-31] MEDS ORDERED: OXYCODONE HCL IR 5 MG TAB (IMMEDIATE RELEASE) PO PRN (20:44)
--- NOTE | 2019-10-31 20:54 | XRay Report ---
XR chest 1V portable HISTORY: 69 years-old Male low o2 acute hypoxia COMPARISON: Chest radiograph 10/29/2019 TECHNIQUE: Portable AP view of the chest FINDINGS: Cardiac silhouette is enlarged. Moderate right pleural effusion with persistent right lung opacities. A vascular congestion. No pneumothorax. Multiple metallic density foreign bodies of the left chest r edemonstrated. Calcified plaque of the thoracic aortic arch. Degenerative changes of the shoulders an d spine. IMPRESSION: 1. Moderate right pleural effusion with stable to slightly progressed right lung consolidative opacit ies. 2. Cardiomegaly with pulmonary vascular congestion. ACT 112: Negative or not required by law. The above report was generated using voice recognition software. It may contain grammatical, syntax o r spelling errors. Electronically signed by: Brendan Gallo M.D. 10/31/2019 8:52 PM
[2019-10-31] MEDS: TAMSULOSIN HCL 0.4 MG CAP PO SCH (21:05)
[2019-10-31 21:09] LABS: Base Excess ABG -2.2 mEq/L (-9-1.8); HCO3 ABG 20 mmol/L (19-24); Oxygen Saturation ABG 89.2 % (90-95); PCO2 ABG 26 mmHg (35-46); PO2 ABG 55 mmHg (80-95)
[2019-10-31 21:12] LABS: Allen Test Pos (Pos)
[2019-10-31 21:40] LABS: BUN Creatinine Ratio 13.3 (10-20); Calcium 9.5 mg/dl (8.5-10.1); Creatinine Clr Calc Pharmacy 82.7 ml/min; Est GFR (African American) 102.1; Est GFR (Non-African American) 88.1; Magnesium 2.1 mg/dl (1.8-2.4); Potassium 4.5 mmol/L (3.5-5.1)
[2019-10-31] MEDS ORDERED: SODIUM CHLORIDE 0.9% 500 ML IV ONE (22:19)
[2019-11-01] MEDS: IMIPENEM/CILASTATIN SODIUM 500 MG in DEXTROSE 5% 100 ML IV SCH ×4 (01:58→19:43)
[2019-11-01] MEDS: LEVALBUTEROL 1.25MG/0.5ML NEB INH SCH ×7 (03:18→23:32)
[2019-11-01] MEDS: IPRATROPIUM BROMIDE NEB SOLN 0.02% 2.5 ML VIAL INH SCH ×7 (03:18→23:32)
[2019-11-01] MEDS: LEVOTHYROXINE SODIUM 200 MCG TABLET PO SCH (06:21)
[2019-11-01 06:51] LABS: Anisocytosis Present; Polychromasia 1+
[2019-11-01] MEDS ORDERED: XOPENEX/ATROVENT 1.25mg/0.5MG NEB COMBO NEB STA (06:51)
[2019-11-01] MEDS ORDERED: methylPREDNISolone 20 MG in SYRINGE 0 ML IV STA ×2 (06:55→20:17)
[2019-11-01] MEDS ORDERED: LEVALBUTEROL 1.25MG/0.5ML NEB INH SCH (07:00)
[2019-11-01] MEDS ORDERED: IPRATROPIUM BROMIDE NEB SOLN 0.02% 2.5 ML VIAL INH SCH (07:00)
[2019-11-01] MEDS ORDERED: FUROSEMIDE 20 MG in SYRINGE 0 ML IV ONE (07:15)
--- NOTE | 2019-11-01 07:32 | XRay Report ---
XR chest 1V portable HISTORY: 69 years-old Male sob acute shortness of breath COMPARISON: Chest radiograph 10/29/2019 TECHNIQUE: Portable AP view of the chest FINDINGS: Cardiac silhouette is enlarged. Pulmonary vascular congestion with mild interstitial coarsening. No p neumothorax. Unchanged right pleural effusion with right midlung and right lung base consolidation. D egenerative changes of the shoulders and spine. Metallic density foci are noted projecting over the l eft lung base and left chest wall. IMPRESSION: 1. Cardiomegaly with pulmonary vascular congestion and interstitial coarsening possibly reflective of pulmonary edema. 2. Unchanged right pleural effusion with right lung consolidation. ACT 112: Negative or not required by law. The above report was generated using voice recognition software. It may contain grammatical, syntax o r spelling errors. Electronically signed by: Brendan Gallo M.D. 11/01/2019 7:31 AM
[2019-11-01] MEDS ORDERED: FUROSEMIDE 40 MG in SYRINGE 0 ML IV ONE (08:00)
--- NOTE | 2019-11-01 08:03 | Hospitalist Progress Note ---
Date of Service November 01, 2019 Assessment & Plan (1) Acute hypoxemic respiratory failure: (2) Sepsis: (3) Pneumonia: (4) Pleural effusion: Severe sepsis secondary to above MRSA/ESBL Klebsiella as per records --Went into respiratory distress, 11/01/2019 Status post placement of pigtail chest tube 11/01/2019 Pleural fluid analysis positive exudative fluid --Weaned off BiPAP Replace as needed for respiratory distress, hypoxia --Lasix IV daily continue Vanco + Imipenem, taper Prednisone, Nebs -- blood cultures: negative so far sputum culture: recommend repeat collection Nasal MRSA Positive -- Pulm SVC recommendations appreciated Right Sided Pleural Effusion --Exudative based on pleural fluid analysis, likely secondary to parapneumonic effusion --Management per #1 Drowsiness -- ABG: no hypercapnea -- ammonia level normal --We will DC oxycodone for pulmonary service recommendations Gabapentin also on hold Diarrhea secondary to lactulose Rule out C. 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 SCDs RE recent UGIB Full code Admission and Anticipated Discharge Date Admission Date: October 29, 2019 Subjective Follow-up for respiratory failure, right pleural effusion, bilateral pneumonia Notified by RN as patient is in respiratory distress patient isEvaluated at the bedside, awake, in respiratory distress, with accessory muscle use, appears weak BiPAP stat ordered, improvement seen with initiation of BiPAP Reports of shortness of breath, but no chest pain No other symptoms but full ROS difficult to obtain due to patient's respiratory status Lasix IV 40 mg stat also ordered as well as nebs A few moments later patient was noted to be in SVT Denies chest pain, dizziness, nausea Metoprolol 2.5 mg IV ordered, SVT eventually resolved Discussed case with pulmonary service, Dr. You Recommend emergent chest tube placement due to clinical deterioration Discussed with primary physician Dr. Ashley, who recommended to proceed with emergent medical procedures if indicated Verified with charge nurse and historical records administrator on-call, who also confirmed that we may proceed with emergent medical procedures Consent signed, patient underwent chest tube placement with drainage of 1.7 L fluid Evaluated late in the afternoon about 5 PM Patient requesting to remove BiPAP and also requesting to eat as per RN BiPAP removed, placed on 3 L of nasal cannula, patient is comfortable, not in distress, no accessory muscle use States he feels fine Continue to monitor closely if doing well after half an hour of BiPAP may proceed with p.o. diet Replace BiPAP mask if with respiratory distress, hypoxia Review of Systems Review of Systems: All systems reviewed & are unremarkable except as noted in HPI & below Physical Exam Physical Exam: General-alert, but appears weak, not in distress, breathing with no effort or accessory muscle use Mostly communicates by nodding/shaking his head or speaking in a few words Eyes- anicteric Neck- no JVD Lungs-positive decreased breath sounds on the right, clear on the left, no wheezing After chest tube placement, breath sounds improved on the right Heart- normal rate, regular rhythm; no murmurs Abdomen- normal bowel sounds, nondistended, soft, nontender Extremities- no pretibial edema, no calf tenderness Neuro-alert but weak, oriented x1-2; no gross focal neurologic deficits Skin- warm & dry Results & Data Results & Data ([facility]) Vital Signs (Past 12 Hours) Vital Signs Temp Pulse Pulse Pulse Resp BP Pulse Ox 11/01/19 08:01 124 H 24 94 11/01/19 07:59 124 H 24 94 11/01/19 07:43 90 11/01/19 07:21 37.5 C 119 H 24 187/82 H 88 L 11/01/19 06:31 100 H 22 90 11/01/19 04:00 36.8 C 92 H 20 148/98 H 90 11/01/19 00:00 36.9 C 92 H 22 162/86 H 90 10/31/19 23:19 72 20 90 10/31/19 22:42 85 Laboratory Results Laboratory Results - last 24 hr 10/31/19 10/31/19 10/31/19 07:23 17:36 20:58 WBC RBC Hgb Hct MCV MCH MCHC RDW Std Deviation RDW Coeff of Alin Plt Count MPV Immature Gran % (Auto) Neut % (Auto) Lymph % (Auto) Elliott % (Auto) Eos % (Auto) Baso % (Auto) Neut # (Auto) Lymph # (Auto) Elliott # (Auto) Eos # (Auto) Baso # (Auto) Immature Gran # (Auto) Absolute Nucleated RBC Nucleated RBC % (auto) Polychromasia 1+ Anisocytosis Present Spherocytes Target Cells ABG pH 7.50 H ABG pCO2 26 L ABG pO2 55 L ABG HCO3 20 ABG O2 Saturation 89.2 L ABG Base Excess -2.2 Shan Test Pos Barometric Pressure 732.3 Oxygen Given 3L Sodium Potassium Chloride Carbon Dioxide Anion Gap BUN Creatinine Est Cr Clr Drug Dosing Est GFR ( Amer) Est GFR (Non-Af Amer) BUN/Creatinine Ratio Glucose Calcium Magnesium Total Bilirubin AST ALT Alkaline Phosphatase Ammonia 35.6 H Lactate Dehydrogenase Troponin I Total Protein Albumin Globulin Albumin/Globulin Ratio Fluid Neutrophils % Fluid Lymphocytes % Fluid Eosinophils % Fluid Basophils % Fluid Meso/Macro/Elliott % Fluid Slide Review Pleural Fluid Source Pleural Color Pleural Appearance Pleural pH Pleural WBC Pleural RBC Pleural Other Cells Pleural Total Protein Pleural LDH Pleural Glucose Pleural Amylase Pleural Cholesterol 10/31/19 10/31/19 11/01/19 21:12 21:12 09:32 WBC RBC Hgb Hct MCV MCH MCHC RDW Std Deviation RDW Coeff of Alin Plt Count MPV Immature Gran % (Auto) Neut % (Auto) Lymph % (Auto) Elliott % (Auto) Eos % (Auto) Baso % (Auto) Neut # (Auto) Lymph # (Auto) Elliott # (Auto) Eos # (Auto) Baso # (Auto) Immature Gran # (Auto) Absolute Nucleated RBC Nucleated RBC % (auto) Polychromasia Anisocytosis Spherocytes Target Cells ABG pH ABG pCO2 ABG pO2 ABG HCO3 ABG O2 Saturation ABG Base Excess Shan Test Barometric Pressure Oxygen Given Sodium 134 L Potassium 4.5 Chloride 107 Carbon Dioxide 22 Anion Gap 5.0 BUN 12 Creatinine 0.90 0.75 Est Cr Clr Drug Dosing 82.7 101.8 Est GFR ( Amer) 102.1 110.0 Est GFR (Non-Af Amer) 88.1 94.9 BUN/Creatinine Ratio 13.3 Glucose 132 H Calcium 9.5 D Magnesium 2.1 Total Bilirubin AST ALT Alkaline Phosphatase Ammonia 25.9 Lactate Dehydrogenase Troponin I Total Protein Albumin Globulin Albumin/Globulin Ratio Fluid Neutrophils % Fluid Lymphocytes % Fluid Eosinophils % Fluid Basophils % Fluid Meso/Macro/Elliott % Fluid Slide Review Pleural Fluid Source Pleural Color Pleural Appearance Pleural pH Pleural WBC Pleural RBC Pleural Other Cells Pleural Total Protein Pleural LDH Pleural Glucose Pleural Amylase Pleural Cholesterol 11/01/19 11/01/19 11/01/19 09:32 09:32 09:32 WBC 27.51 H RBC 4.09 L Hgb 9.6 L Hct 31.5 L MCV 77.0 L MCH 23.5 L MCHC 30.5 L RDW Std Deviation 67.1 H RDW Coeff of Alin 24.3 H Plt Count 369 MPV 9.5 Immature Gran % (Auto) 3.8 Neut % (Auto) 63.6 Lymph % (Auto) 17.5 Elliott % (Auto) 14.8 Eos % (Auto) 0.0 Baso % (Auto) 0.3 Neut # (Auto) 17.49 H Lymph # (Auto) 4.81 H Elliott # (Auto) 4.08 H Eos # (Auto) 0.01 Baso # (Auto) 0.07 Immature Gran # (Auto) 1.05 H Absolute Nucleated RBC 0.97 H Nucleated RBC % (auto) 3.5 Polychromasia 1+ Anisocytosis Present Spherocytes 1+ Target Cells 1+ ABG pH 7.49 H ABG pCO2 27 L ABG pO2 58 L ABG HCO3 20 ABG O2 Saturation 88.8 L ABG Base Excess -1.9 Shan Test Pos Barometric Pressure 732.7 Oxygen Given 60% Sodium 134 L Potassium 3.2 L D Chloride 106 Carbon Dioxide 20 L Anion Gap 8.0 BUN 10 Creatinine 0.75 Est Cr Clr Drug Dosing 101.8 Est GFR ( Amer) 110.0 Est GFR (Non-Af Amer) 94.9 BUN/Creatinine Ratio 12.6 Glucose 119 H Calcium 9.5 Magnesium 1.7 L Total Bilirubin 0.7 AST 99 H ALT 25 Alkaline Phosphatase 146 H Ammonia Lactate Dehydrogenase Troponin I < 0.015 Total Protein 8.5 H Albumin 1.6 L Globulin 6.9 H Albumin/Globulin Ratio 0.2 L Fluid Neutrophils % Fluid Lymphocytes % Fluid Eosinophils % Fluid Basophils % Fluid Meso/Macro/Elliott % Fluid Slide Review Pleural Fluid Source Pleural Color Pleural Appearance Pleural pH Pleural WBC Pleural RBC Pleural Other Cells Pleural Total Protein Pleural LDH Pleural Glucose Pleural Amylase Pleural Cholesterol 11/01/19 11/01/19 11/01/19 11:45 11:45 11:45 WBC RBC Hgb Hct MCV MCH MCHC RDW Std Deviation RDW Coeff of Alin Plt Count MPV Immature Gran % (Auto) Neut % (Auto) Lymph % (Auto) Elliott % (Auto) Eos % (Auto) Baso % (Auto) Neut # (Auto) Lymph # (Auto) Elliott # (Auto) Eos # (Auto) Baso # (Auto) Immature Gran # (Auto) Absolute Nucleated RBC Nucleated RBC % (auto) Polychromasia Anisocytosis Spherocytes Target Cells ABG pH ABG pCO2 ABG pO2 ABG HCO3 ABG O2 Saturation ABG Base Excess Shan Test Barometric Pressure Oxygen Given Sodium Potassium Chloride Carbon Dioxide Anion Gap BUN Creatinine Est Cr Clr Drug Dosing Est GFR ( Amer) Est GFR (Non-Af Amer) BUN/Creatinine Ratio Glucose Calcium Magnesium Total Bilirubin AST ALT Alkaline Phosphatase Ammonia Lactate Dehydrogenase Troponin I Total Protein Albumin Globulin Albumin/Globulin Ratio Fluid Neutrophils % 78 Fluid Lymphocytes % 17 Fluid Eosinophils % 0 Fluid Basophils % 0 Fluid Meso/Macro/Elliott % 5 Fluid Slide Review Pending Pleural Fluid Source RIGHT LUNG Pleural Color CALVIN Pleural Appearance CLOUDY Pleural pH Cancelled Pleural WBC 2479 Pleural RBC 92620 Pleural Other Cells Pleural Total Protein 4.1 Pleural LDH 861 Pleural Glucose 76 Pleural Amylase 29 Pleural Cholesterol 11/01/19 11/01/19 11/01/19 11:45 12:02 12:02 WBC RBC Hgb Hct MCV MCH MCHC RDW Std Deviation RDW Coeff of Alin Plt Count MPV Immature Gran % (Auto) Neut % (Auto) Lymph % (Auto) Elliott % (Auto) Eos % (Auto) Baso % (Auto) Neut # (Auto) Lymph # (Auto) Elliott # (Auto) Eos # (Auto) Baso # (Auto) Immature Gran # (Auto) Absolute Nucleated RBC Nucleated RBC % (auto) Polychromasia Anisocytosis Spherocytes Target Cells ABG pH ABG pCO2 ABG pO2 ABG HCO3 ABG O2 Saturation ABG Base Excess Shan Test Barometric Pressure Oxygen Given Sodium Potassium Chloride Carbon Dioxide Anion Gap BUN Creatinine Est Cr Clr Drug Dosing Est GFR ( Amer) Est GFR (Non-Af Amer) BUN/Creatinine Ratio Glucose Calcium Magnesium Total Bilirubin 0.8 AST ALT Alkaline Phosphatase Ammonia Lactate Dehydrogenase 831 H Troponin I Total Protein 8.0 Albumin 1.4 L Globulin Albumin/Globulin Ratio Fluid Neutrophils % Fluid Lymphocytes % Fluid Eosinophils % Fluid Basophils % Fluid Meso/Macro/Elliott % Fluid Slide Review Pleural Fluid Source Pleural Color Pleural Appearance Pleural pH Pleural WBC Pleural RBC Pleural Other Cells Pleural Total Protein Pleural LDH Pleural Glucose Pleural Amylase Pleural Cholesterol Pending 11/01/19 14:39 WBC RBC Hgb Hct MCV MCH MCHC RDW Std Deviation RDW Coeff of Alin Plt Count MPV Immature Gran % (Auto) Neut % (Auto) Lymph % (Auto) Elliott % (Auto) Eos % (Auto) Baso % (Auto) Neut # (Auto) Lymph # (Auto) Elliott # (Auto) Eos # (Auto) Baso # (Auto) Immature Gran # (Auto) Absolute Nucleated RBC Nucleated RBC % (auto) Polychromasia Anisocytosis Spherocytes Target Cells ABG pH ABG pCO2 ABG pO2 ABG HCO3 ABG O2 Saturation ABG Base Excess Shan Test Barometric Pressure Oxygen Given Sodium Potassium Chloride Carbon Dioxide Anion Gap BUN Creatinine Est Cr Clr Drug Dosing Est GFR ( Amer) Est GFR (Non-Af Amer) BUN/Creatinine Ratio Glucose Calcium Magnesium Total Bilirubin AST ALT Alkaline Phosphatase Ammonia Lactate Dehydrogenase Troponin I Total Protein Albumin Globulin Albumin/Globulin Ratio Fluid Neutrophils % Fluid Lymphocytes % Fluid Eosinophils % Fluid Basophils % Fluid Meso/Macro/Elliott % Fluid Slide Review Pleural Fluid Source Pleural Color Pleural Appearance Pleural pH 7.29 L Pleural WBC Pleural RBC Pleural Other Cells Pleural Total Protein Pleural LDH Pleural Glucose Pleural Amylase Pleural Cholesterol (1) Sepsis Acute respiratory failure type: with hypoxia Sepsis acute organ dysfunction status: with acute organ dysfunction Sepsis type: sepsis due to unspecified organism Severe sepsis acute organ dysfunction type: acute respiratory failure Severe sepsis shock status: without septic shock Qualified Code(s): A41.9 - Sepsis, unspecified organism; R65.20 - Severe sepsis without septic shock; J96.01 - Acute respiratory failure with hypoxia (2) Pneumonia Laterality: right Lung location: lower lobe of lung Pneumonia type: due to unspecified organism Qualified Code(s): J18.9 - Pneumonia, unspecified organism
[2019-11-01] MEDS: VANCOMYCIN HCL 1,000 MG in SODIUM CHLORIDE 0.9% 250 ML IV SCH ×2 (08:14→19:42)
[2019-11-01] MEDS: LACTULOSE SYRUP 20 GM/30 ML UDC PO SCH ×3 (08:41→21:12)
[2019-11-01] MEDS: LACTOBACILLUS ACIDOPHILUS (FLORANEX) TAB PO SCH ×3 (08:41→15:10)
[2019-11-01] MEDS: PANTOprazole 40 MG TAB PO SCH ×2 (08:42→21:32)
[2019-11-01] MEDS ORDERED: predniSONE 20 MG TAB PO SCH (09:00)
[2019-11-01] MEDS ORDERED: METOPROLOL TARTRATE 1 MG/ML VIAL IV STA (09:11)
[2019-11-01 09:44] LABS: Hematocrit (blood only) 31.5 % (42-52); Hemoglobin 9.6 g/dL (14.0-18.0); Mean Corpuscular Hemoglobin 23.5 pg (25-34); Mean Corpuscular Hgb Conc 30.5 g/dL (32-36); Mean Platelet Volume 9.5 fL (7.4-10.4); Nucleated RBC # (auto) 0.97 K/uL (0-0); Nucleated RBC % (auto) 3.5 %; Platelet Count 369 K/uL (130-400); RDW Coefficient of Variation 24.3 % (11.5-14.5); RDW Standard Deviation 67.1 fL (36.4-46.3); Red Blood Count 4.09 M/uL (4.7-6.1); White Blood Count 27.51 K/uL (4.8-10.8)
[2019-11-01 09:47] LABS: Base Excess ABG -1.9 mEq/L (-9-1.8); HCO3 ABG 20 mmol/L (19-24); Oxygen Saturation ABG 88.8 % (90-95); PCO2 ABG 27 mmHg (35-46); PO2 ABG 58 mmHg (80-95); pH ABG 7.49 (7.35-7.45)
[2019-11-01 09:48] LABS: Allen Test Pos (Pos)
[2019-11-01 10:07] LABS: Anisocytosis Present; Basophils # (auto) 0.07 K/uL (0-0.2); Basophils % (auto) 0.3 %; Eosinophils # (auto) 0.01 K/uL (0-0.5); Immature Granulocytes # (auto) 1.05 K/uL (0.00-0.02); Immature Granulocytes % (auto) 3.8 %; Lymphocytes # (auto) 4.81 K/uL (1.2-3.4); Lymphocytes % (auto) 17.5 %; Monocytes # (auto) 4.08 K/uL (0.11-0.59); Monocytes % (auto) 14.8 %; Neutrophils # (auto) 17.49 K/uL (1.4-6.5); Neutrophils % (auto) 63.6 %; Polychromasia 1+; Spherocytes 1+; Target Cells 1+
[2019-11-01 10:11] LABS: Creatinine Clr Calc Pharmacy 101.8 ml/min; Est GFR (Non-African American) 94.9
[2019-11-01 10:12] LABS: Alanine Aminotransferase 25 U/L (12-78); Albumin Level 1.6 gm/dl (3.4-5.0); Aspartate Aminotransferase 99 U/L (15-37); BUN Creatinine Ratio 12.6 (10-20); Blood Urea Nitrogen 10 mg/dl (7-18); Calcium 9.5 mg/dl (8.5-10.1); Carbon Dioxide 20 mmol/L (21-32); Chloride 106 mmol/L (98-107); Creatinine Clr Calc Pharmacy 101.8 ml/min; Est GFR (Non-African American) 94.9; Glucose 119 mg/dl (70-99); Magnesium 1.7 mg/dl (1.8-2.4); Potassium 3.2 mmol/L (3.5-5.1); Sodium 134 mmol/L (136-145)
[2019-11-01 10:17] LABS: Albumin Globulin Ratio 0.2 (0.9-2); Alkaline Phosphatase 146 U/L (45-117); Bilirubin,Total 0.7 mg/dl (0.2-1); Globulin 6.9 gm/dl (2.5-4.0); Total Protein 8.5 gm/dl (6.4-8.2); Troponin I < 0.015 ng/ml (0-0.045)
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
[2019-11-01 12:44] LABS: Albumin Level 1.4 gm/dl (3.4-5.0); Bilirubin,Total 0.8 mg/dl (0.2-1)
[2019-11-01 13:01] LABS: Total Protein Pleural Fluid 4.1 g/dl
[2019-11-01 13:46] LABS: Appearance Pleural Fluid CLOUDY; Basophils, Fluid 0 %; Color Pleural Fluid AMBER; Eosinophils, Fluid 0 %; Lymphocytes, Fluid 17 %; Mono,Macrophage,Mesothelial 5 %; Neutrophils, Fluid 78 %; RBC Pleural Fluid (A) 34000 /uL; Source Pleural Fluid RIGHT LUNG; WBC Pleural Fluid (A) 2479 /uL
--- NOTE | 2019-11-01 13:51 | Pulmonology Progress Note ---
Date of Service November 01, 2019 Assessment & Plan (1) Acute hypoxemic respiratory failure: CT chest 10/29/2019: Centrilobular emphysema, moderate right-sided pleural effusion, right lower lobe pneumonia/collapse, Minimal atelectatic changes appreciated in the left lower lobe as well. --Right-sided pleural effusion New in onset compared to CT chest 09/27/2019 Status post emergent chest tube placement 11/01/2019 given the clinical worsening status Pleural fluid:- LDH: 861, protein: 4.1, glucose: 76 Serum:- LDH: 831, total protein: 8 Exudative as per lights criteria. Likely parapneumonic. Follow-up pH as well as cultures --Acute hypoxic respiratory failure Likely secondary to right lower lobe pneumonia with right-sided pleural effusion Continue with broad-spectrum antibiotics f/u septic work up Continue with O2 supplementation to keep saturation between 88-92% BiPAP nightly and PRN shortness of breath On 09/18/2019 sputum culture grew Klebsiella ESBL. Continue with imipenem/Cilastin Plan: AB.49/ Chest x-ray from today shows worsening pulmonary vascular congestion as well as right-sided pleural effusion. Status post right-sided pigtail chest tube placement 11/01/2019 with serosanguineous fluid aspirated, exudative. Likely parapneumonic effusion. Follow-up culture. Patient saturating well on BiPAP getting good tidal volumes. Would recommend backup rate of 16 Give a dose of Lasix today. Highly recommend discontinuing opioids. If there is any clinical deterioration of mental status or respiratory distress transfer the patient to MICU. Please note the above document was generated using voice recognition software. It may contain grammatical, syntax or spelling errors. (2) Pneumonia: Laterality: right Lung location: lower lobe of lung Pneumonia type: due to unspecified organism Qualified Code(s): J18.9 - Pneumonia, unspecified organism (3) Pleural effusion: Admission and Anticipated Discharge Date Admission Date: October 29, 2019 Subjective Patient seen and examined at bedside On BiPAP at the time of examination. Patient was getting good tidal volumes. He was very somnolent in the morning for which she was given Narcan and woke up. He also had an episode of SVT for which he was given metoprolol 2.5 mg. Review of Systems Review of Systems: Unobtainable due to cognitive status Physical Exam Physical Exam: Constitutional: No acute distress HEENT: EOMI, PERRLA Respiratory system: Decreased air entry bilaterally, more decreased on the right side, positive crackles bilateral lower lobes, no wheeze, no rhonchi CVS: S1-S2 positive, no murmurs or gallops, tachycardia Abdomen: Soft, nontender, nondistended, positive bowel sounds x4 Extremities: +2 pulses bilaterally radialis/ dorsalis pedis, no cyanosis, mild edema bilateral lower extremity Neuro: Awake alert oriented x3 Psych: Somnolent Skin: no rashes, warm and dry Lymphatic: no cervical or axillary lymphadenopathy Results & Data Results & Data ([facility]) Vital Signs (Past 12 Hours) Vital Signs Temp Pulse Pulse Pulse Resp BP BP 11/01/19 13:33 91 H 22 11/01/19 11:11 37.2 C 112 H 20 121/82 11/01/19 11:04 110 H 22 11/01/19 11:00 111 H 22 11/01/19 09:28 144 H 110/70 11/01/19 09:24 147 H 26 H 11/01/19 08:41 110/83 11/01/19 08:01 124 H 24 11/01/19 07:59 124 H 24 11/01/19 07:43 11/01/19 07:21 37.5 C 119 H 24 187/82 H 11/01/19 06:31 100 H 22 11/01/19 04:00 36.8 C 92 H 20 148/98 H Pulse Ox 11/01/19 13:33 100 11/01/19 11:11 94 11/01/19 11:04 95 11/01/19 11:00 95 11/01/19 09:28 11/01/19 09:24 97 11/01/19 08:41 11/01/19 08:01 94 11/01/19 07:59 94 11/01/19 07:43 90 11/01/19 07:21 88 L 11/01/19 06:31 90 11/01/19 04:00 90 Laboratory Tests 11/01/19 11/01/19 11/01/19 11:45 12:02 12:02 Lactate Dehydrogenase 831 H Total Protein 8.0 Pleural Total Protein 4.1 Pleural LDH 861 11/01/19 09:32 PG Care Time/CCT Total # of Minutes Spent Total Time Spent with Patient: Total time spent is greater than 50% in coordinat ion of care (as documented) at patient's floor/unit and/or counseling patient: Coding Level of Care Code 21241 Subseq Hosp Care Lvl 3 Diagnoses Acute hypoxemic respiratory failure J96.01 Pneumonia J18.9 Laterality: right Lung location: lower lobe of lung Pneumonia type: due to unspecified organism Pleural effusion J90
--- NOTE | 2019-11-01 13:56 | Procedure Note ---
Procedure Note Date of Service November 01, 2019 Procedure: Pigtail chest tube insertion Collar Feller: Dr. Nicole You Indication: Right-sided pleural effusion Consent: Emergent given the clinical worsening status of the patient,'s consent was cosigned by Dr. Ayala Anesthesia: 1% lidocaine without epinephrine local Procedure: Consent was verified and timeout performed. Appropriate imaging studies were reviewed prior to the procedure. Patient was placed in a seated position and limited thoracic ultrasound was performed of the right chest. See separate imaging. Appropriate site above the diaphragm for chest tube insertion was selected. The skin was prepped and draped in normal sterile fashion. Lidocaine was used for local analgesia. Fluid was aspirated via the finder needle. A small skin fifi was made with the scalpel and the catheter over the needle apparatus was advanced over the rib into the pleural space. With the help of guidewire and Seldinger technique, 14 Serbian pigtail catheter was inserted and connected to Pleur-evac. Serosanguineous fluid was appreciated. Minimal air leak initially which stopped. Chest x-ray to follow Fluid was sent for labs, culture and cytology. The patient tolerated the procedure without obvious complication Complications: None Blood loss: Less than 2 cc. Coding CPT Codes Pulmonary/Thoracic - Pulmonary and Thoracic: 27614 Tube thoracostomy ([id number]) Pulmonary/Thoracic - Pulmonary and Thoracic: 01257 US, Chest, real time with imaging documentation ([id number]) [facility] [place]odes (Charges) Pulmonary/Thoracic Procedure 1: Pulmonary and Thoracic: 00093 Tube thoracostomy Procedure 2: Pulmonary and Thoracic: 77336 US, Chest, real time with imaging documentation
[2019-11-01] MEDS: FUROSEMIDE 40 MG in SYRINGE 0 ML IV SCH (14:32)
[2019-11-01] MEDS ORDERED: POTASSIUM CHLORIDE 20 MEQ TABCR PO STA (17:25)
[2019-11-01] MEDS ORDERED: POTASSIUM CHLORIDE 20 MEQ/15 ML UDC PO STA (17:44)
[2019-11-01] MEDS: POTASSIUM CHLORIDE / WTR 10 MEQ/100 ML PLCT IV SCH ×5 (18:20→23:53)
[2019-11-01] MEDS ORDERED: KETOROLAC TROMETHAMINE 15 MG/ML VIAL IV ONE (20:18)
[2019-11-01] MEDS ORDERED: TRAMADOL HCL 50 MG TABLET PO PRN (20:29)
[2019-11-01] MEDS ORDERED: ACETAMINOPHEN 1,000 MG/100 ML VIAL IV PRN (20:30)
[2019-11-01] MEDS ORDERED: ACETAMINOPHEN 65 ML IV PRN (20:32)
[2019-11-01 20:48] LABS: Base Excess ABG 2.4 mEq/L (-9-1.8); HCO3 ABG 23 mmol/L (19-24); Oxygen Saturation ABG 87.8 % (90-95); PCO2 ABG 25 mmHg (35-46); PO2 ABG 49 mmHg (80-95)
[2019-11-01 20:54] LABS: Allen Test Pos (Pos)
[2019-11-01 20:55] LABS: pH ABG 7.59 (7.35-7.45)
[2019-11-01 21:02] LABS: BUN Creatinine Ratio 13.5 (10-20); Calcium 8.8 mg/dl (8.5-10.1); Creatinine Clr Calc Pharmacy 125.2 ml/min; Est GFR (African American) 119.8; Est GFR (Non-African American) 103.3; Magnesium 1.4 mg/dl (1.8-2.4); Potassium 3.3 mmol/L (3.5-5.1)
[2019-11-01] MEDS ORDERED: ALBUMIN 25% 50 ML IV ONE (21:10)
[2019-11-01] MEDS: TAMSULOSIN HCL 0.4 MG CAP PO SCH (21:11)
[2019-11-01] MEDS: LIDOCAINE 5% 1 PATCH TD SCH (21:12)
[2019-11-01] MEDS: MAGNESIUM SULFATE / D5W 1 GM/100 ML BAG IV SCH ×3 (21:12→23:53)
[2019-11-01] MEDS: MAGNESIUM OXIDE 400 MG TAB PO SCH (21:32)
[2019-11-02] MEDS: POTASSIUM CHLORIDE / WTR 10 MEQ/100 ML PLCT IV SCH ×5 (00:32→02:36)
[2019-11-02] MEDS: MAGNESIUM SULFATE / D5W 1 GM/100 ML BAG IV SCH (01:32)
[2019-11-02] MEDS: IMIPENEM/CILASTATIN SODIUM 500 MG in DEXTROSE 5% 100 ML IV SCH ×4 (02:36→20:49)
[2019-11-02] MEDS: IPRATROPIUM BROMIDE NEB SOLN 0.02% 2.5 ML VIAL INH SCH ×6 (03:09→23:37)
[2019-11-02] MEDS: LEVALBUTEROL 1.25MG/0.5ML NEB INH SCH ×6 (03:09→23:36)
[2019-11-02] MEDS: LEVOTHYROXINE SODIUM 200 MCG TABLET PO SCH (05:16)
[2019-11-02] MEDS ORDERED: ALBUMIN 25% 50 ML IV ONE (05:51)
[2019-11-02] MEDS: LACTOBACILLUS ACIDOPHILUS (FLORANEX) TAB PO SCH ×3 (07:48→15:30)
[2019-11-02] MEDS: VANCOMYCIN HCL 1,000 MG in SODIUM CHLORIDE 0.9% 250 ML IV SCH ×2 (07:48→20:49)
[2019-11-02] MEDS: FUROSEMIDE 40 MG in SYRINGE 0 ML IV SCH (07:49)
[2019-11-02] MEDS ORDERED: predniSONE 20 MG TAB PO ONE (08:00)
[2019-11-02] MEDS: POTASSIUM CHLORIDE PWD 20 MEQ PACK PO SCH ×2 (08:10→19:52)
[2019-11-02] MEDS: LACTULOSE SYRUP 20 GM/30 ML UDC PO SCH ×3 (08:10→19:51)
[2019-11-02] MEDS: MAGNESIUM OXIDE 400 MG TAB PO SCH ×2 (08:10→19:52)
[2019-11-02] MEDS: PANTOprazole 40 MG TAB PO SCH ×2 (08:11→19:52)
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
[2019-11-02 08:36] LABS: Hematocrit (blood only) 32.4 % (42-52); Hemoglobin 10.3 g/dL (14.0-18.0); Mean Corpuscular Hemoglobin 23.8 pg (25-34); Mean Corpuscular Hgb Conc 31.8 g/dL (32-36); Mean Platelet Volume 9.6 fL (7.4-10.4); Nucleated RBC # (auto) 0.85 K/uL (0-0); Nucleated RBC % (auto) 2.5 %; Platelet Count 395 K/uL (130-400); RDW Coefficient of Variation 24.2 % (11.5-14.5); RDW Standard Deviation 65.9 fL (36.4-46.3); Red Blood Count 4.32 M/uL (4.7-6.1); White Blood Count 34.02 K/uL (4.8-10.8)
--- NOTE | 2019-11-02 08:38 | XRay Report ---
XR chest 1V portable HISTORY: 69 years-old Male f/u shortness of breath. COMPARISON: Chest CT 11/01/2015, chest radiograph 11/01/2019 TECHNIQUE: Portable AP view of the chest FINDINGS: Cardiac silhouette is enlarged. Pulmonary vascular congestion with interstitial coarsening. Bibasilar right greater than left consolidative opacities with moderately improved aeration of the right lung base. Trace pleural effusions. Decreased size of the right pleural effusion. Right-sided chest tube d istal tip terminates adjacent to the medial right lung base. Emphysema. No pneumothorax. Degenerative changes of the shoulders and spine. Thymic density foci are again noted projecting over the left natasha g base. IMPRESSION: 1. Decreased size of the right pleural effusion status post placement of a right-sided chest tube. 2. Moderately improved aeration of the right lung base with persistent right greater than left bibasi lar opacities. 3. Emphysema with chronic interstitial coarsening. 4. Cardiomegaly with pulmonary vascular congestion. ACT 112: Negative or not required by law. The above report was generated using voice recognition software. It may contain grammatical, syntax o r spelling errors. Electronically signed by: Brendan Gallo M.D. 11/02/2019 8:36 AM
[2019-11-02 09:32] LABS: Eosinophils # (manual) 0.58 K/uL (0-0.5); Eosinophils % (manual) 1.7 %; Lymphocytes % (manual) 24.1 %; Metamyelocytes # (manual) 0.31 K/uL (0-0); Metamyelocytes % (manual) 0.9 %; Monocytes # (manual) 2.65 K/uL (0.11-0.59); Monocytes % (manual) 7.8 %; Myelocytes # (manual) 0.88 K/uL (0-0); Myelocytes % (manual) 2.6 %; Neutrophils % (manual) 62.9 %; Target Cells 1+
[2019-11-02 09:50] LABS: BUN Creatinine Ratio 9.2 (10-20); Calcium 9.2 mg/dl (8.5-10.1); Creatinine Clr Calc Pharmacy 94.8 ml/min; Est GFR (African American) 111.9; Est GFR (Non-African American) 96.5; Potassium 4.2 mmol/L (3.5-5.1)
--- NOTE | 2019-11-02 11:55 | Pulmonology Progress Note ---
Date of Service November 02, 2019 Assessment & Plan (1) Acute hypoxemic respiratory failure: CT chest 10/29/2019: Centrilobular emphysema, moderate right-sided pleural effusion, right lower lobe pneumonia/collapse, Minimal atelectatic changes appreciated in the left lower lobe as well. --Right-sided pleural effusion New in onset compared to CT chest 09/27/2019 Status post emergent chest tube placement 11/01/2019 given the clinical worsening status Pleural fluid:- LDH: 861, protein: 4.1, glucose: 76, pH 7.29 Serum:- LDH: 831, total protein: 8 Exudative as per lights criteria. Likely parapneumonic. Follow-up cultures --Acute hypoxic respiratory failure Likely secondary to right lower lobe pneumonia with right-sided pleural effusion Continue with broad-spectrum antibiotics f/u septic work up Continue with O2 supplementation to keep saturation between 88-92% BiPAP nightly and PRN shortness of breath On 09/18/2019 sputum culture grew Klebsiella ESBL. Continue with imipenem/Cilastin Plan: In/out: -1132, urine output 3555 Continue with diuretics as tolerated. Chest x-ray from today shows significant improvement in the right-sided pleural effusion. Bilateral opacities are appreciated alveolar diffuse., Right-sided chest tube in place. Recommend discontinuing any opioids including lidocaine patch Patient has multiple comorbidities including history of renal cell cancer as well as MALT of stomach. On previous admission palliative care was consulted to help with pain management. Patient has been on chronic pain medications I think which are significantly high dose resulting in his AMS on top of his underlying sepsis. Palliative care approach and no aggressive measures would be the right thing to do in a patient who has had multiple admissions in the past for the same reason. Please note the above document was generated using voice recognition software. It may contain grammatical, syntax or spelling errors. (2) Pneumonia: Laterality: right Lung location: lower lobe of lung Pneumonia type: due to unspecified organism Qualified Code(s): J18.9 - Pneumonia, unspecified organism (3) Pleural effusion: Admission and Anticipated Discharge Date Admission Date: October 29, 2019 Subjective Patient seen and examined at bedside. No adverse events overnight. Patient was on Oxymizer at the time of examination. Still somnolent. Opening his eyes on deep stimulation. Review of Systems Review of Systems: Unobtainable due to cognitive status Physical Exam Physical Exam: Constitutional: No acute distress HEENT: EOMI, PERRLA Respiratory system: Decreased air entry bilaterally, positive crackles bilateral lower lobes, no wheeze, no rhonchi CVS: S1-S2 positive, no murmurs or gallops, tachycardia Abdomen: Soft, nontender, nondistended, positive bowel sounds x4 Extremities: +2 pulses bilaterally radialis/ dorsalis pedis, no cyanosis, no edema bilateral lower extremity Neuro: Unable to assess Psych: Somnolent Skin: no rashes, warm and dry Lymphatic: no cervical or axillary lymphadenopathy Results & Data Results & Data ([facility]) Vital Signs (Past 12 Hours) Vital Signs Temp Pulse Pulse Pulse Resp BP BP 11/02/19 11:11 94 H 18 11/02/19 08:02 36.7 C 85 18 157/85 H 11/02/19 07:35 92 H 18 11/02/19 03:36 36.9 C 90 20 143/85 H 11/02/19 03:09 91 H 20 11/02/19 00:05 83 Pulse Ox 11/02/19 11:11 93 11/02/19 08:02 96 11/02/19 07:35 87 L 11/02/19 03:36 94 11/02/19 03:09 100 11/02/19 00:05 11/02/19 08:17 11/02/19 08:17 Microbiology 11/01/19 11:45 Pleural Fluid Gram Stain - Final 11/01/19 11:45 Pleural Fluid Aerobic and Anaerobic Culture - Preliminary No growth to date. 11/01/19 11:45 Pleural Fluid Acid Fast Bacilli Smear - Final 10/29/19 18:47 Blood Aerobic Blood Culture - Preliminary No growth in Aerobic bottle after 48 hours. 10/29/19 18:47 Blood Anaerobic Blood Culture - Preliminary No growth in Anaerobic bottle after 48 hours. 10/29/19 20:00 Blood Aerobic Blood Culture - Preliminary No growth in Aerobic bottle after 48 hours. 10/29/19 20:00 Blood Anaerobic Blood Culture - Final 10/30/19 Unknown Sputum, Expectorated Gram Stain - Final 10/30/19 Unknown Sputum, Expectorated Sputum Culture - Final PG Care Time/CCT Total # of Minutes Spent Total Time Spent with Patient: Total time spent is greater than 50% in coordination of care (as documented) at patient's floor/unit and/or counseling patient: Coding Level of Care Code 46757 Subseq Hosp Care Lvl 3 Diagnoses Acute hypoxemic respiratory failure J96.01 Pneumonia J18.9 Laterality: right Lung location: lower lobe of lung Pneumonia type: due to unspecified organism Pleural effusion J90
--- NOTE | 2019-11-02 17:05 | Palliative Care Consultation ---
Date of Consultation November 02, 2019 Assessment & Plan (1) Goals of care, counseling/discussion: This is an unfortunate 69 year old incarcerated male that is known to the palliative care team. He presented to the [facility] with a COPD exacerbation likely related to pneumonia, and possible recurrent aspiration. He was recently admitted on 09/16/19 with N/V and anemia. He has a significant PMH that includes: MALT of the stomach, cirrhosis, renal cell CA s/p nephrectomy, HTN, HLD, CAD, PVD, hypothyroidism, and COPD. Last admission, we made some significant narcotic reductions due to his mental status, all while taking into consideration he does have terminal illness. This admission, one month later, he appears to have become more deconditioned with apparent weight loss. The patient was noted to have centrilobular emphysema with a RLL PNA/Pneumothorax where an emergent right-sided chest tube was placed. The chest tube has put out 2100mL in a 24 hour period. The patient's respiratory drive has shown decline as well and requires BiPAP at night. Palliative Care was consulted to discuss goals of care. -I met with the patient (and two guards) in his room 233. The patient was lying on his right side with his eyes open. -The patient turned his head when I said his name, followed my finger with his eyes, but was non-communicative during my visit. He also did not follow commands. I did turn him to observe his chest tube site and he was quite rigid, but did not moan, have furrowed brow or grimace. -I was most alarmed by his weight loss comparing to last month. Last month's admission 09/22/19 he weighed 79.3 kg (174 lbs). Currently he is 67.3 kg (148 lb s). That is a 26 lb weight loss or 14% of his total body weight in one month. He is becoming increasingly cachectic as well which indicates disease progression to me. -I think that despite our efforts, this patient is failing. Consideration of above could be progression of his cancer. Head CT was completed 09/17/19 and negative. Current WBC is 34.02. -Currently, his narcotic regimen is less compared to last admission; Oxycontin 40 mg PO BID. It does not appear that the level of narcotic he is on, is affecting his mental status. That being said, we could decrease this as well to monitor for improvement. Ultimately, I think that this patient is entering the last phase of his life. -I do not know if this gentleman has a living will in place at the long term. I am unable to establish goals of care with him as he is not communicating with us. That being said, I think that we are at the point in juncture for this patient to discuss hospice care and possible opportunity for discussion regarding his code status. Will communicate this with case management to reach out directly to the long term for next of kin details and/or be able to discuss their end-of-life transition process i.e. 2 physician documented DNR, etc. -The patient is a Full Code at this time. See above - will discuss with case management to obtain details regarding process. -PPS: 20% (2) Acute hypoxemic respiratory failure: (3) Cancer related pain: (4) Aspiration pneumonia: (5) Altered mental status: Altered mental status type: unspecified Qualified Code(s): R41.82 - Altered mental status, unspecified History of Present Illness Reason for Consultation: Goals of care Requesting Physician: Dr. Ayala Attending Physician: Riley Ayala MD History of Present Illness This is an unfortunate 69 year old incarcerated male that is known to the palliative care team. He presented to the [facility] with a COPD exacerbation likely related to pneumonia, and possible recurrent aspiration. He was recently admitted on 09/16/19 with N/V and anemia. He has a significant PMH that includes: MALT of the stomach, cirrhosis, renal cell CA s/p nephrectomy, HTN, HLD, CAD, PVD, hypothyroidism, and COPD. Last admission, we made some significant narcotic reductions due to his mental status, all while taking into consideration he does have terminal illness. This admission, one month later, he appears to have become more deconditioned with apparent weight loss. The patient was noted to have centrilobular emphysema with a RLL PNA/Pneumothorax where an emergent right-sided chest tube was placed. The chest tube has put out 2100mL in a 24 hour period. The patient's respiratory drive has shown decline as well and requires BiPAP at night. Palliative Care was consulted to discuss goals of care. Please see A/P for further details. Thank you kindly for involving the palliative care team with this patient. We will follow. Allergies Allergy/AdvReac Type Severity Reaction Status Date / Time lisinopril Allergy Severe Unknown Verified 10/29/19 18:32 YONNY Inhibitors Allergy Intermediate LIPS SWELL Verified 10/29/19 18:32 Cipro Allergy Mild PER RECORD Verified 09/19/17 13:41 ciprofloxacin Allergy Mild Mild rash Verified 09/16/19 13:57 Home Medications Home Medications Medication Instructions Recorded Confirmed Type isosorbide mononitrate 30 mg PO QAM 03/07/18 10/29/19 History tamsulosin 0.4 mg PO HS 03/07/18 10/29/19 History levothyroxine 200 mcg PO QAM 10/16/18 10/29/19 History gabapentin 800 mg PO BID 03/07/19 10/29/19 History lactulose 30 ml PO TID 03/07/19 10/29/19 History Alvesco 1 puff INHALATION BID 05/08/19 10/29/19 History mirtazapine 45 mg PO HS 05/08/19 10/29/19 History Gaviscon 30 ml PO QID 08/07/19 10/29/19 History diphenhydramine HCl 25 mg PO HS 09/16/19 10/29/19 History magnesium oxide 400 mg PO BID #60 tab 10/04/19 10/29/19 Rx pantoprazole 40 mg PO BID #60 tab 10/04/19 10/29/19 Rx guaifenesin [Mucinex] 1,200 mg PO BID 10/29/19 10/29/19 History levalbuterol tartrate [Xopenex HFA] 2 inh INHALATION QID 10/29/19 10/29/19 History oxycodone [OxyContin] 40 mg PO BID 10/29/19 10/29/19 History oxycodone [Roxicodone] 30 mg PO TID PRN 10/29/19 10/29/19 History prednisone See Rx Instructions .ROUTE .COMPLEX 10/29/19 10/29/19 History umeclidinium [Incruse Ellipta] 1 inh INHALATION DAILY 10/29/19 10/29/19 History vitamin A and D [A and D] 1 applic TOPICAL BID 10/29/19 10/29/19 History Patient History Medical History (Updated 11/02/19 @ 23:07 by JONATHAN Stanton) Anemia CAD (coronary artery disease) Cholelithiasis without cholecystitis Chronic pain Chronic sinusitis Cirrhosis Secondary to alcohol COPD (chronic obstructive pulmonary disease) Esophageal varices 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 GERD (gastroesophageal reflux disease) Goals of care, counseling/discussion HLD (hyperlipidemia) HTN (hypertension) Hypothyroidism Malignant neoplasm of kidney Left side- s/p partial nephrectomy Neuropathy Portal hypertension PVD (peripheral vascular disease) Surgical History History of appendectomy History of partial nephrectomy History of splenectomy Hx of colonoscopy Family History Mother Hypothyroidism Father Myocardial infarction Social History Smoking Status: Former smoker Cigarettes Per Day: 12; Second Hand Exposure: Yes; Hx Alcohol Use: No Hx Substance Use: No Preferred Language: Puerto Rican Communication Ability: Effective Javascript Web Developer Required: No Beliefs That Will Affect Care: None Current Living Situation: Other Current Living Situation Comment: long term current occupational status: unemployed Feels Safe at Home: Yes Review of Systems Review of Systems: Unobtainable due to cognitive status Physical Exam Constitutional: + ill appearing, + thin, + cachectic, + frail appearing and + lethargic Neck: trachea midline, no thyromegaly Respiratory: normal respiratory effort Auscultation: + diminished lung sounds and + rhonchi right sided chest tube. Cardiovascular: Rate/Rhythm: regular rate and regular rhythm Heart Sounds: normal S1 and normal S2 Vessels: dorsalis pedis pulses present and radial pulses present Extremities: normal capillary refill Gastrointestinal (Abdomen): normal bowel sounds, soft, nontender, no hepatosplenomegaly Skin: normal turgor Psychiatric: Orientation: alert Eye Contact: + poor eye contact Insight: + impaired insight Judgement: + impaired judgement Results & Data ([facility]) Vital Signs (Past 12 Hours) Vital Signs Temp Pulse Pulse Pulse Resp BP BP 11/02/19 16:52 105 H 11/02/19 15:23 36.4 C L 100 H 20 129/64 11/02/19 15:19 105 H 22 11/02/19 12:02 36.7 C 100 H 19 119/65 11/02/19 11:11 94 H 18 11/02/19 08:02 36.7 C 85 18 157/85 H 11/02/19 07:35 92 H 18 Pulse Ox 11/02/19 16:52 11/02/19 15:23 95 11/02/19 15:19 95 11/02/19 12:02 94 11/02/19 11:11 93 11/02/19 08:02 96 11/02/19 07:35 87 L PG Care Time/CCT Total # of Minutes Spent Total Time Spent with Patient: Total time spent is greater than 50% in coordination of care (as documented) at patient's floor/unit and/or counseling patient: 70 Coding Level of Care Code 89037 Inpt Consult Level 3 Diagnoses Goals of care, counseling/discussion Z71.89 Acute hypoxemic respiratory failure J96.01 Cancer related pain G89.3 Aspiration pneumonia J69.0 Altered mental status R41.82 Altered mental status type: unspecified Time Spent (min) 70 Time Spent Midlevel Total time spent 70 minutes with > 50% of that time spent assessing the patient, discussing goals of care with IDT.
--- NOTE | 2019-11-02 17:21 | Hospitalist Progress Note ---
Date of Service November 02, 2019 Assessment & Plan (1) Acute hypoxemic respiratory failure: (2) Sepsis: (3) Pneumonia: (4) Pleural effusion: Severe sepsis secondary to above MRSA/ESBL Klebsiella as per records --Went into respiratory distress, 11/01/2019 Status post placement of pigtail chest tube 11/01/2019 Pleural fluid analysis positive exudative fluid --Weaned off BiPAP Replace as needed for respiratory distress, hypoxia --11/02/2019: Patient remains on 4 L of oxygen mask Repeat chest x-ray: Improvement of right pleural effusion and aeration However mental status remains poor today, drowsy Ammonia level normal -- Lasix IV daily continue Vanco + Imipenem nebs Completed prednisone therapy -- blood cultures: negative so far sputum culture: recommend repeat collection Nasal MRSA Positive -- Pulm SVC recommendations appreciated Right Sided Pleural Effusion -- Exudative based on pleural fluid analysis, likely secondary to parapneumonic effusion -- Management per #1 Metabolic Encephalopathy -- ABG: no hypercapnea --Secondary to #1 --Opioids discontinued, transition to tramadol Gabapentin also on hold Ammonia level within normal limits TSH within normal limits Diarrhea secondary to lactulose Rule out C. 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 SCDs RE recent UGIB Full code Discussed with [facility] nurse Francisco regarding updating family members RN Francisco given update on patient's diagnosis and plan of care, medical condition He said they will be getting in touch with the family to relay patient's guarded status Admission and Anticipated Discharge Date Admission Date: October 29, 2019 Subjective ff up for respiratory failure, pneumonia, pleural effusion, etc. seen resting in bed on oxygen mask 4 L, not in distress but drowsy Patient not able to answer questions, occasionally nods but mostly eyes are closed Moves extremities equally No diarrhea per RN, no other issues per RN Full review of systems difficult to assess secondary to cognitive status Review of Systems Review of Systems: All systems reviewed & are unremarkable except as noted in HPI & below Physical Exam Physical Exam: General-lethargic, on oxygen mask, not in distress, breathing with no effort or accessory muscle use Eyes- anicteric Neck- no JVD Lungs-mild rales bilateral bases, no wheezing, good air entry bilaterally Heart- normal rate, regular rhythm; no murmurs Abdomen- normal bowel sounds, nondistended, soft, nontender Extremities- no pretibial edema, no calf tenderness Neuro-drowsy/lethargic; no gross focal neurologic deficits Skin- warm & dry Results & Data Results & Data ([facility]) Vital Signs (Past 12 Hours) Vital Signs Temp Pulse Pulse Pulse Resp BP BP 11/02/19 16:52 105 H 11/02/19 15:23 36.4 C L 100 H 20 129/64 11/02/19 15:19 105 H 22 11/02/19 12:02 36.7 C 100 H 19 119/65 11/02/19 11:11 94 H 18 11/02/19 08:02 36.7 C 85 18 157/85 H 11/02/19 07:35 92 H 18 Pulse Ox 11/02/19 16:52 11/02/19 15:23 95 11/02/19 15:19 95 11/02/19 12:02 94 11/02/19 11:11 93 11/02/19 08:02 96 11/02/19 07:35 87 L Laboratory Results Laboratory Results - last 24 hr 11/01/19 11/01/19 11/01/19 20:30 20:30 20:30 WBC RBC Hgb Hct MCV MCH MCHC RDW Std Deviation RDW Coeff of Alin Plt Count MPV Absolute Nucleated RBC Nucleated RBC % (auto) Neutrophils % (Manual) Lymphocytes % (Manual) Monocytes % (Manual) Eosinophils % (Manual) Metamyelocytes % (Man) Myelocytes % (Man) Neutrophils # (Manual) Total Absolute Neuts Lymphocytes # (Manual) Total Abs Lymphocytes Monocytes # (Manual) Eosinophils # (Manual) Metamyelocytes # (Man) Myelocytes # (Manual) Target Cells ABG pH 7.59 H* ABG pCO2 25 L ABG pO2 49 L ABG HCO3 23 ABG O2 Saturation 87.8 L ABG Base Excess 2.4 H Shan Test Pos Barometric Pressure 732.0 Oxygen Given 4L Sodium 135 L Potassium 3.3 L Chloride 106 Carbon Dioxide 19 L Anion Gap 10.0 BUN 8 Creatinine 0.61 Est Cr Clr Drug Dosing 125.2 Est GFR ( Amer) 119.8 Est GFR (Non-Af Amer) 103.3 BUN/Creatinine Ratio 13.5 Glucose 89 Calcium 8.8 Magnesium 1.4 L Ammonia 17.0 Vancomycin Trough 11/02/19 11/02/19 11/02/19 08:17 08:17 08:17 WBC 34.02 H* RBC 4.32 L Hgb 10.3 L Hct 32.4 L MCV 75.0 L MCH 23.8 L MCHC 31.8 L RDW Std Deviation 65.9 H RDW Coeff of Alin 24.2 H Plt Count 395 MPV 9.6 Absolute Nucleated RBC 0.85 H Nucleated RBC % (auto) 2.5 Neutrophils % (Manual) 62.9 Lymphocytes % (Manual) 24.1 Monocytes % (Manual) 7.8 Eosinophils % (Manual) 1.7 Metamyelocytes % (Man) 0.9 Myelocytes % (Man) 2.6 Neutrophils # (Manual) 21.40 H Total Absolute Neuts 21.40 H Lymphocytes # (Manual) 8.20 H Total Abs Lymphocytes 8.20 H Monocytes # (Manual) 2.65 H Eosinophils # (Manual) 0.58 H Metamyelocytes # (Man) 0.31 H Myelocytes # (Manual) 0.88 H Target Cells 1+ ABG pH ABG pCO2 ABG pO2 ABG HCO3 ABG O2 Saturation ABG Base Excess Shan Test Barometric Pressure Oxygen Given Sodium 133 L Potassium 4.2 D Chloride 103 Carbon Dioxide 21 Anion Gap 9.0 BUN 7 Creatinine 0.72 Est Cr Clr Drug Dosing 94.8 Est GFR ( Amer) 111.9 Est GFR (Non-Af Amer) 96.5 BUN/Creatinine Ratio 9.2 L Glucose 74 Calcium 9.2 Magnesium Ammonia Vancomycin Trough 18.4 (1) Sepsis Acute respiratory failure type: with hypoxia Sepsis acute organ dysfunction status: with acute organ dysfunction Sepsis type: sepsis due to unspecified organism Severe sepsis acute organ dysfunction type: acute respiratory failure Severe sepsis shock status: without septic shock Qualified Code(s): A41.9 - Sepsis, unspecified organism; R65.20 - Severe sepsis without septic shock; J96.01 - Acute respiratory failure with hypoxia (2) Pneumonia Laterality: right Lung location: lower lobe of lung Pneumonia type: due to unspecified organism Qualified Code(s): J18.9 - Pneumonia, unspecified organism
[2019-11-02] MEDS ORDERED: VANCOMYCIN TROUGH ONE (19:30)
[2019-11-02] MEDS: TAMSULOSIN HCL 0.4 MG CAP PO SCH (19:52)
--- NOTE | 2019-11-02 20:40 | Pharmacy Report ---
Pharmacy Abx Dose Short Note - Date of Service November 02, 2019 - Assessment & Plan Assessment 69 year old M receiving receiving Vanco + imipenem for right lower lobe pneumonia with right-sided pleural effusion Plan Vancomycin * Therapeutic trough level of 18.4 drawn this morning. However, it was uncertain if this level was obtained while medication was infusing. A f/u trough was ordered this evening. * Repeat trough level of 16.4 mcg/mL, which was drawn appropriately, is therapeutic * Continue dose of 1000 mg IV every 12 hours * Goal trough level: 15 to 20 mcg/mL * Trough level ordered for: 11/04 at 0730 Imipenem: * Continue 500mg IV q6h for CrCl > 90ml/min Pharmacy will continue to follow and will adjust dose/frequency as necessary. Thank you.
[2019-11-02] MEDS: LIDOCAINE 5% 1 PATCH TD SCH (20:55)
--- NOTE | 2019-11-02 22:33 | Electrocardiogram Report ---
Test Reason : Blood Pressure : / mmHG Vent. Rate : 148 BPM Atrial Rate : 148 BPM P-R Int : 204 ms QRS Dur : 078 ms QT Int : 300 ms P-R-T Axes : 060 048 264 degrees QTc Int : 471 ms Poor data quality, interpretation may be adversely affected Possible Atrial flutter Septal infarct , age undetermined Marked ST abnormality, possible inferolateral subendocardial injury Abnormal ECG When compared with ECG of 29-OCT-2019 18:50, ST now depressed in Inferolateral leads Inverted T waves have replaced nonspecific T wave abnormality in Inferior leads Confirmed by Chris Balderas ([id number]) on 11/02/2019 10:32:53 PM Referred By: REFERRED SELF Confirmed By:Chris Balderas
[2019-11-03] MEDS: IMIPENEM/CILASTATIN SODIUM 500 MG in DEXTROSE 5% 100 ML IV SCH ×3 (01:42→13:26)
[2019-11-03] MEDS: LEVALBUTEROL 1.25MG/0.5ML NEB INH SCH ×5 (03:48→19:54)
[2019-11-03] MEDS: IPRATROPIUM BROMIDE NEB SOLN 0.02% 2.5 ML VIAL INH SCH ×5 (03:48→19:54)
[2019-11-03] MEDS: LEVOTHYROXINE SODIUM 200 MCG TABLET PO SCH (05:48)
[2019-11-03 06:39] LABS: Hematocrit (blood only) 31.3 % (42-52); Hemoglobin 9.9 g/dL (14.0-18.0); Mean Corpuscular Hemoglobin 23.7 pg (25-34); Mean Corpuscular Hgb Conc 31.6 g/dL (32-36); Mean Corpuscular Volume 75.1 fL (80-100); Mean Platelet Volume 9.9 fL (7.4-10.4); Nucleated RBC # (auto) 0.75 K/uL (0-0); Nucleated RBC % (auto) 2.5 %; Platelet Count 339 K/uL (130-400); RDW Coefficient of Variation 24.4 % (11.5-14.5); RDW Standard Deviation 66.2 fL (36.4-46.3); Red Blood Count 4.17 M/uL (4.7-6.1); White Blood Count 29.88 K/uL (4.8-10.8)
[2019-11-03 07:05] LABS: BUN Creatinine Ratio 11.3 (10-20); Calcium 9.3 mg/dl (8.5-10.1); Creatinine Clr Calc Pharmacy 114.4 ml/min; Est GFR (African American) 124.1
[2019-11-03 07:26] LABS: ALC (manual) 5.71 K/uL (1.2-3.4); Anisocytosis Present; Lymphocytes # (manual) 5.71 K/uL (1.2-3.4); Lymphocytes % (manual) 19.1 %; Monocytes # (manual) 2.87 K/uL (0.11-0.59); Monocytes % (manual) 9.6 %; Neutrophils % (manual) 71.3 %; Polychromasia 1+; Spherocytes Occasional; Target Cells 2+
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
[2019-11-03] MEDS: PANTOprazole 40 MG TAB PO SCH (08:44)
[2019-11-03] MEDS: POTASSIUM CHLORIDE PWD 20 MEQ PACK PO SCH (08:44)
[2019-11-03] MEDS: LACTOBACILLUS ACIDOPHILUS (FLORANEX) TAB PO SCH ×2 (08:44→11:36)
[2019-11-03] MEDS: MAGNESIUM OXIDE 400 MG TAB PO SCH (08:44)
[2019-11-03] MEDS: LACTULOSE SYRUP 20 GM/30 ML UDC PO SCH ×2 (08:44→12:00)
[2019-11-03] MEDS: VANCOMYCIN HCL 1,000 MG in SODIUM CHLORIDE 0.9% 250 ML IV SCH (08:44)
[2019-11-03] MEDS: FUROSEMIDE 40 MG in SYRINGE 0 ML IV SCH (08:45)
[2019-11-03] MEDS ORDERED: METOPROLOL TARTRATE 1 MG/ML VIAL IV STA ×2 (10:16→11:41)
[2019-11-03] MEDS ORDERED: METOPROLOL TARTRATE 1 MG/ML VIAL IV ONE (10:20)
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
--- NOTE | 2019-11-03 11:12 | Palliative Care Progress Note ---
Date of Service November 03, 2019 Assessment & Plan (1) Goals of care, counseling/discussion: This is an unfortunate 69 year old incarcerated male that is known to the palliative care team. He presented to the [facility] with a COPD exacerbation likely related to pneumonia, and possible recurrent aspiration. He was recently admitted on 09/16/19 with N/V and anemia. He has a significant PMH that includes: MALT of the stomach, cirrhosis, renal cell CA s/p nephrectomy, HTN, HLD, CAD, PVD, hypothyroidism, and COPD. Last admission, we made some significant narcotic reductions due to his mental status, all while taking into consideration he does have terminal illness. This admission, one month later, he appears to have become more deconditioned with apparent weight loss. The patient was noted to have centrilobular emphysema with a RLL PNA/Pneumothorax where an emergent right-sided chest tube was placed. The chest tube has put out 2100mL in a 24 hour period. The patient's respiratory drive has shown decline as well and requires BiPAP at night. Palliative Care was consulted to discuss goals of care. -The patient has shown significant decline overnight, now requiring HiFLow O2. Additionally, pulmonary met with the patient and the chest tube appears to be blocked and his chest x-ray has worsened with an increasing WBC. -The hospitalist was able to talk with the correction system and obtained family decision making from his sister Yi. The Pulmonary PA and hospitalist talked with the sister and had him changed to a DNR.DNI. -About an hour later, close to 1130, the patient was basically obtunded. I phoned Yi myself at and had length conversation about comfort measures and she supported this transition. -I will order comfort measures and discontinue all blood draws, non essential medications and order comfort medications, including Morphine IV. I have a low threshold to start him on a Morphine gtt. -I was most alarmed by his weight loss comparing to last month. Last month's admission 09/22/19 he weighed 79.3 kg (174 lbs). Currently he is 67.3 kg (148 lbs). That is a 26 lb weight loss or 14% of his total body weight in one month. He is becoming increasingly cachectic as well which indicates disease progression to me. -I think that despite our efforts, this patient is failing. Consideration of above could be progression of his cancer. Head CT was completed 09/17/19 and negative. Current WBC is 34.02. -Life expectancy hours to a day or two. Patient anticipated to pass away in the hospital. Not a GIP candidate at this time as symptoms managed. -PPS: 10% (2) Acute hypoxemic respiratory failure: (3) Cancer related pain: (4) Aspiration pneumonia: (5) Altered mental status: Admission and Anticipated Discharge Date Admission Date: October 29, 2019 Subjective Pt lethargic and not responsive Chest tube appears to be blocked increasingly short of breath see A/P for further details Review of Systems Review of Systems: Unobtainable due to reduced consciousness Physical Exam Constitutional: + ill appearing, + thin, + cachectic, + frail appearing and + lethargic Neck: trachea midline, no thyromegaly Respiratory: normal respiratory effort Auscultation: + diminished lung sounds and + rhonchi Cardiovascular: Rate/Rhythm: regular rate and regular rhythm Heart Sounds: normal S1 and normal S2 Vessels: dorsalis pedis pulses present and radial pulses present Extremities: normal capillary refill Gastrointestinal (Abdomen): normal bowel sounds, soft, nontender, no hepatosplenomegaly Skin: normal turgor Psychiatric: Orientation: alert Eye Contact: + poor eye contact Insight: + impaired insight Judgement: + impaired judgement Results & Data ([facility]) Vital Signs (Past 12 Hours) Vital Signs Temp Pulse Pulse Pulse Pulse Resp BP 11/03/19 10:22 166 H 130/70 11/03/19 09:52 109 H 24 11/03/19 07:40 36.6 C 20 11/03/19 07:14 101 H 22 11/03/19 03:48 93 H 24 11/03/19 03:06 36.5 C 61 19 11/03/19 00:08 36.6 C 58 L 16 11/02/19 23:37 71 18 BP BP Pulse Ox 11/03/19 10:22 11/03/19 09:52 94 11/03/19 07:40 144/86 H 87 L 11/03/19 07:14 91 11/03/19 03:48 92 11/03/19 03:06 118/75 98 11/03/19 00:08 122/74 96 11/02/19 23:37 97 PG Care Time/CCT Total # of Minutes Spent Total Time Spent with Patient: Total time spent is greater than 50% in coordination of care (as documented) at patient's floor/unit and/or counseling patient: 65 Coding Level of Care Code 20984 Subseq Hosp Care Lvl 3 Diagnoses Goals of care, counseling/discussion Z71.89 Acute hypoxemic respiratory failure J96.01 Cancer related pain G89.3 Aspiration pneumonia J69.0 Altered mental status R41.82 Altered mental status type: unspecified Time Spent (min) 65 Time Spent Midlevel Total time spent 65 minutes with > 50% of that time spent assessing the patient, discussing goals of care with the family and IDT, while managing symptoms (1) Altered mental status Altered mental status type: unspecified Qualified Code(s): R41.82 - Altered mental status, unspecified
[2019-11-03] MEDS: MoRPHine SULFATE 2 MG/ML CARP IV PRN ×3 (12:16→20:56)
--- NOTE | 2019-11-03 13:24 | XRay Report ---
XR chest 1V portable CLINICAL HISTORY: Right sided effusion with 14 fr pigtail COMPARISON STUDY: Chest CT November 01, 2019. Chest radiograph performed earlier today. FINDINGS: Right pleural catheter remains in place. There is no pneumothorax. Right lung aeration has moderately improved since exam of November 03, 2019 at 6:59 AM. Right basilar opacity persists but has improved. There is a small right pleural effusion. There is pulmonary vascular congestion. Mild cardi omegaly is noted. IMPRESSION: 1. Interval improvement in right lung aeration. Persistent, but improved, right basilar opacity. 2. Right pleural catheter in place. No pneumothorax. Small right pleural effusion. 3. Pulmonary vascular congestion. ACT 112: Negative or not required by law. Electronically signed by: mUer Perez M.D. 11/03/2019 1:23 PM
[2019-11-03] MEDS ORDERED: LORazepam 0.5 MG/1 ML VIAL IV PRN (13:54)
[2019-11-03] MEDS ORDERED: GLYCOPYRROLATE 0.2 MG/ML VIAL IV PRN (13:54)
--- NOTE | 2019-11-03 17:53 | Hospitalist Progress Note ---
Date of Service November 03, 2019 Assessment & Plan (1) Acute hypoxemic respiratory failure: (2) Sepsis: (3) Pneumonia: (4) Pleural effusion: Severe sepsis secondary to above MRSA/ESBL Klebsiella as per records --Went into respiratory distress, 11/01/2019 Status post placement of pigtail chest tube 11/01/2019 Pleural fluid analysis positive exudative fluid --Weaned off BiPAP Replace as needed for respiratory distress, hypoxia --11/02/2019: Patient remains on 4 L of oxygen mask Repeat chest x-ray: Improvement of right pleural effusion and aeration -- Lasix IV daily continue Vanco + Imipenem nebs Completed prednisone therapy -- blood cultures: negative so far sputum culture: recommend repeat collection Nasal MRSA Positive -- 11/02: worsening respiratory status and mental status CXR worsening right sided effusion events as per subjective part transitioned to Comfort Measure status as per discussion with family Right Sided Pleural Effusion -- Exudative based on pleural fluid analysis, likely secondary to parapneumonic effusion -- Management per #1 Metabolic Encephalopathy -- ABG: no hypercapnea --Secondary to #1 --Opioids discontinued, transition to tramadol Gabapentin also on hold Ammonia level within normal limits TSH within normal limits Diarrhea secondary to lactulose Rule out C. 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 SCDs RE recent UGIB DNR comfort measures status only Admission and Anticipated Discharge Date Admission Date: October 29, 2019 Subjective Follow-up for acute hypoxic respiratory failure, bilateral pneumonia, right- sided pleural effusion, status post chest tube placement This morning the patient was noted to be more tachypneic, hypoxic on nasal cannula Evaluated at the bedside immediately upon receiving message from the nurse Seen resting in bed very drowsy, his eyes are open but does not respond to commands Appears very weak Initially placed on nasal cannula but patient became more tachypneic, placed on oxygen mask 15 L Oxygen saturation did not improve, at 1 point was 87% , placed on high flow O2 Pulmonary service regularly updated on above developments Chest x-ray showed worsening right-sided white out Spoke with patient's Sister Yi, as advised by [facility] physician Dr. Ashley Patient's status, medical condition, plan of care discussed in detail and at length with Yi Goals of care discussed She called back and requested to speak with patient over the phone with her mom as well PA Guevara Anderson facilitated phone call with patient and his family in the room After discussion with Guevara Anderson, the patient's family decided to transition the patient to DNR status Patient reevaluated by mortgage originator Dr. Araujo Patient remained obtunded on high flow O2, and respiratory distress Prognosis very poor as per , recommended comfort measures status only Discussed with palliative care service JONATHAN Gonsalves, who discussed with patient's family Patient eventually transitioned to comfort measures status only Review of Systems Review of Systems: Unobtainable due to cognitive status Physical Exam Physical Exam: General- lethargic, tachypneic with accessory muscle use Eyes- anicteric Neck- no JVD Lungs-(+) crackles bilaterally no wheezing Heart- tachycardic, regular rhythm; no murmurs Abdomen- normal bowel sounds, nondistended, soft, nontender Extremities- no pretibial edema, no calf tenderness Neuro- lethargic, moves extremities equally Skin- warm & dry Results & Data Results & Data ([facility]) Vital Signs (Past 12 Hours) Vital Signs Temp Pulse Pulse Resp BP BP Pulse Ox 11/03/19 16:13 104 H 11/03/19 15:48 36.5 C 91 H 18 116/74 96 11/03/19 15:10 109 H 26 H 94 11/03/19 12:02 36.7 C 128 H 22 124/61 97 11/03/19 11:59 159 H 128/68 11/03/19 11:12 144 H 24 93 11/03/19 10:22 166 H 130/70 11/03/19 09:52 109 H 24 94 11/03/19 07:40 36.6 C 20 144/86 H 87 L 11/03/19 07:14 101 H 22 91 (1) Sepsis Acute respiratory failure type: with hypoxia Sepsis acute organ dysfunction status: with acute organ dysfunction Sepsis type: sepsis due to unspecified organism Severe sepsis acute organ dysfunction type: acute respiratory failure Severe sepsis shock status: without septic shock Qualified Code(s): A41.9 - Sepsis, unspecified organism; R65.20 - Severe sepsis without septic shock; J96.01 - Acute respiratory failure with hypoxia (2) Pneumonia Laterality: right Lung location: lower lobe of lung Pneumonia type: due to unspecified organism Qualified Code(s): J18.9 - Pneumonia, unspecified organism
[2019-11-03] MEDS: LIDOCAINE 5% 1 PATCH TD SCH (20:56)
[2019-11-04] MEDS: MoRPHine SULFATE 2 MG/ML CARP IV PRN ×3 (01:23→10:51)
[2019-11-04 06:29] LABS: Hematocrit (blood only) 35.4 % (42-52); Mean Corpuscular Hemoglobin 23.8 pg (25-34); Mean Corpuscular Hgb Conc 31.1 g/dL (32-36); Mean Corpuscular Volume 76.6 fL (80-100); Mean Platelet Volume 9.9 fL (7.4-10.4); Nucleated RBC # (auto) 1.09 K/uL (0-0); Nucleated RBC % (auto) 3.4 %; Platelet Count 300 K/uL (130-400); RDW Coefficient of Variation 24.2 % (11.5-14.5); Red Blood Count 4.62 M/uL (4.7-6.1); White Blood Count 32.14 K/uL (4.8-10.8)
[2019-11-04 06:45] LABS: BUN Creatinine Ratio 17.9 (10-20); Calcium 9.4 mg/dl (8.5-10.1); Creatinine Clr Calc Pharmacy 85.4 ml/min; Est GFR (Non-African American) 94.9; Potassium 3.2 mmol/L (3.5-5.1)
[2019-11-04 06:57] LABS: Anisocytosis Present; Basophils # (auto) 0.15 K/uL (0-0.2); Basophils % (auto) 0.5 %; Eosinophils # (auto) 0.04 K/uL (0-0.5); Eosinophils % (auto) 0.1 %; Hypochromasia Present; Immature Granulocytes # (auto) 2.15 K/uL (0.00-0.02); Immature Granulocytes % (auto) 6.7 %; Lymphocytes # (auto) 5.01 K/uL (1.2-3.4); Lymphocytes % (auto) 15.6 %; Monocytes # (auto) 4.76 K/uL (0.11-0.59); Monocytes % (auto) 14.8 %; Neutrophils # (auto) 20.03 K/uL (1.4-6.5); Neutrophils % (auto) 62.3 %; Polychromasia 1+; Spherocytes 2+; Target Cells 1+
[2019-11-04] MEDS: FUROSEMIDE 40 MG in SYRINGE 0 ML IV SCH (08:02)
[2019-11-04] MEDS ORDERED: METOPROLOL TARTRATE 1 MG/ML VIAL IV STA (08:05)
[2019-11-04] MEDS ORDERED: MoRPHine SULF/NSS 250 MG/250 ML BTL IV PRN (09:35)
--- NOTE | 2019-11-04 17:48 | Hospitalist Progress Note ---
Date of Service November 04, 2019 Assessment & Plan (1) Acute hypoxemic respiratory failure: (2) Sepsis: (3) Pneumonia: (4) Pleural effusion: 69-year-old male, inmate of correctional facility, with history of MALT lymphoma, on chronic pain medications CAD, proximal A. fib, hypertension, admitted for acute hypoxic respiratory failure. Acute hypoxic respiratory failure Severe sepsis secondary to pneumonia Right-sided pleural effusion Comfort Measures Status --Went into respiratory distress, 11/01/2019 Status post placement of pigtail chest tube 11/01/2019 Pleural fluid analysis positive exudative fluid Weaned off BiPAP after chest tube placement Repeat chest x-ray: Improvement of right pleural effusion and aeration -- given Lasix IV daily, Vanco + Imipenem -- 11/02: worsening respiratory status and mental status CXR worsening right sided effusion Palliative Care consulted transitioned to Comfort Measure status as per discussion with family -- 11/03: transitioned to morphine drip more comfortable continue PRN Medications Right Sided Pleural Effusion -- Exudative based on pleural fluid analysis, likely secondary to parapneumonic effusion -- Management per #1 Metabolic Encephalopathy --Secondary to #1 --Opioids discontinued Gabapentin held Ammonia level within normal limits TSH within normal limits Diarrhea secondary to lactulose Rule out C. 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 Past alcohol abuse tobacco abuse comfort measures status only Admission and Anticipated Discharge Date Admission Date: October 29, 2019 Subjective Follow-up for sepsis- pneumonia, right pleural effusion Seen sleeping, obtunded Not in distress, no accessory muscle use No other issues per sales attendant building materials of Systems Review of Systems: All systems reviewed & are unremarkable except as noted in HPI & below Physical Exam Physical Exam: General-mild tachypnea, not in distress, and accessory muscle use Lungs-positive rales bilaterally, mild Extremities, no edema Results & Data Results & Data ([facility]) Vital Signs (Past 12 Hours) Vital Signs Temp Pulse Pulse Resp BP BP Pulse Ox 11/04/19 09:11 37.1 C 156 H 28 H 104/81 95 11/04/19 09:05 156 H 104/81 11/04/19 07:40 117 H (1) Sepsis Acute respiratory failure type: with hypoxia Sepsis acute organ dysfunction status: with acute organ dysfunction Sepsis type: sepsis due to unspecified organism Severe sepsis acute organ dysfunction type: acute respiratory failure Severe sepsis shock status: without septic shock Qualified Code(s): A41.9 - Sepsis, unspecified organism; R65.20 - Severe sepsis without septic shock; J96.01 - Acute respiratory failure with hypoxia (2) Pneumonia Laterality: right Lung location: lower lobe of lung Pneumonia type: due to unspecified organism Qualified Code(s): J18.9 - Pneumonia, unspecified organism
[2019-11-04] MEDS: LIDOCAINE 5% 1 PATCH TD SCH (20:07)
[2019-11-05 06:40] LABS: Hematocrit (blood only) 35.8 % (42-52); Hemoglobin 10.8 g/dL (14.0-18.0); Mean Corpuscular Hemoglobin 23.3 pg (25-34); Mean Corpuscular Hgb Conc 30.2 g/dL (32-36); Mean Corpuscular Volume 77.3 fL (80-100); Mean Platelet Volume 9.7 fL (7.4-10.4); Nucleated RBC # (auto) 1.54 K/uL (0-0); Nucleated RBC % (auto) 4.3 %; Platelet Count 263 K/uL (130-400); RDW Coefficient of Variation 24.2 % (11.5-14.5); RDW Standard Deviation 67.2 fL (36.4-46.3); Red Blood Count 4.63 M/uL (4.7-6.1); White Blood Count 35.57 K/uL (4.8-10.8)
[2019-11-05 07:16] LABS: BUN Creatinine Ratio 15.1 (10-20); Calcium 10.1 mg/dl (8.5-10.1); Creatinine Clr Calc Pharmacy 32.7 ml/min; Est GFR (African American) 39.8; Est GFR (Non-African American) 34.4; Potassium 3.6 mmol/L (3.5-5.1)
[2019-11-05] MEDS ORDERED: VANCOMYCIN TROUGH SCH (07:30)
[2019-11-05 07:45] LABS: Anisocytosis Present; Basophils # (auto) 0.29 K/uL (0-0.2); Basophils % (auto) 0.8 %; Eosinophils % (auto) 0.3 %; Immature Granulocytes # (auto) 3.25 K/uL (0.00-0.02); Immature Granulocytes % (auto) 9.1 %; Lymphocytes # (auto) 8.15 K/uL (1.2-3.4); Lymphocytes % (auto) 22.9 %; Microcytosis Present; Monocytes # (auto) 3.45 K/uL (0.11-0.59); Monocytes % (auto) 9.7 %; Neutrophils # (auto) 20.33 K/uL (1.4-6.5); Neutrophils % (auto) 57.2 %; Rouleaux 1+; Target Cells 1+
--- NOTE | 2019-11-05 07:46 | Hospitalist Progress Note ---
Date of Service November 05, 2019 Assessment & Plan (1) Acute hypoxemic respiratory failure: (2) Sepsis: (3) Pneumonia: (4) Pleural effusion: 69-year-old male, inmate of correctional facility, with history of MALT lymphoma, on chronic pain medications CAD, proximal A. fib, hypertension, admitted for acute hypoxic respiratory failure. Acute hypoxic respiratory failure Severe sepsis secondary to pneumonia Right-sided pleural effusion Comfort Measures Status --Went into respiratory distress, 11/01/2019 Status post placement of pigtail chest tube 11/01/2019 Pleural fluid analysis positive exudative fluid Weaned off BiPAP after chest tube placement Repeat chest x-ray: Improvement of right pleural effusion and aeration -- given Lasix IV daily, Vanco + Imipenem -- 11/02: worsening respiratory status and mental status CXR worsening right sided effusion Palliative Care consulted transitioned to Comfort Measure status as per discussion with family -- 11/03: transitioned to morphine drip more comfortable continue PRN Medications Right Sided Pleural Effusion -- Exudative based on pleural fluid analysis, likely secondary to parapneumonic effusion -- Management per #1 Metabolic Encephalopathy --Secondary to #1 --Opioids discontinued Gabapentin held Ammonia level within normal limits TSH within normal limits Diarrhea secondary to lactulose Rule out C. 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 Past alcohol abuse tobacco abuse labs DCd comfort measures status only ROS-offers no ros Physical Exam Gen-NAD, Afebrile Head-NCAT, on NRB Neck-Supple, No JVD Lungs-Clear Chest-No S4, +S1, +S2, No S3, No Murmurs, No Rubs, No Gallops, No Ectopy Abdomen-Soft, Bowel Sounds Present, Non Tender, Non Distended, No Hepatomegaly, No Splenomegaly, No Palpable Masses, No Rebound, No Rigidity, No Guarding Extremities-No Cyanosis, No Clubbing, No Edema Nuero-unresposive Admission and Anticipated Discharge Date Admission Date: October 29, 2019 (1) Sepsis Acute respiratory failure type: with hypoxia Sepsis acute organ dysfunction status: with acute organ dysfunction Sepsis type: sepsis due to unspecified organism Severe sepsis acute organ dysfunction type: acute respiratory failure Severe sepsis shock status: without septic shock Qualified Code(s): A41.9 - Sepsis, unspecified organism; R65.20 - Severe sepsis without septic shock; J96.01 - Acute respiratory failure with hypoxia (2) Pneumonia Laterality: right Lung location: lower lobe of lung Pneumonia type: due to unspecified organism Qualified Code(s): J18.9 - Pneumonia, unspecified organism
--- NOTE | 2019-11-05 11:21 | Palliative Care Progress Note ---
Date of Service November 05, 2019 Assessment & Plan (1) Goals of care, counseling/discussion: This is an unfortunate 69 year old incarcerated male that is known to the palliative care team. He presented to the [facility] with a COPD exacerbation likely related to pneumonia, and possible recurrent aspiration. He was recently admitted on 09/16/19 with N/V and anemia. He has a significant PMH that includes: MALT of the stomach, cirrhosis, renal cell CA s/p nephrectomy, HTN, HLD, CAD, PVD, hypothyroidism, and COPD. Last admission, we made some significant narcotic reductions due to his mental status, all while taking into consideration he does have terminal illness. This admission, one month later, he appears to have become more deconditioned with apparent weight loss. The patient was noted to have centrilobular emphysema with a RLL PNA/Pneumothorax where an emergent right-sided chest tube was placed. The chest tube has put out 2100mL in a 24 hour period. The patient's respiratory drive has shown decline as well and requires BiPAP at night. Palliative Care was consulted to discuss goals of care. -The patient was examined and remains on comfort measures. -The patient is currently receiving Morphine 3mg/hour and appears comfortable. Pt is tachycardic and tachypnic. -His head is tilted back, mouth open and is obtunded. -Life expectancy hours to a day or two. Patient anticipated to pass away in the hospital. Not a GIP candidate at this time as symptoms managed. -Call Palliative Care with any additional care needs. -PPS: 10% (2) Acute hypoxemic respiratory failure: (3) Cancer related pain: (4) Aspiration pneumonia: (5) Altered mental status: Admission and Anticipated Discharge Date Admission Date: October 29, 2019 Subjective Pt lethargic and not responsive Chest tube appears to be blocked increasingly short of breath see A/P for further details Review of Systems Review of Systems: Unobtainable due to reduced consciousness Physical Exam Constitutional: + ill appearing, + thin, + cachectic, + frail appearing and + lethargic Neck: trachea midline, no thyromegaly Respiratory: normal respiratory effort Auscultation: + diminished lung sounds and + rhonchi Cardiovascular: Rate/Rhythm: regular rhythm and + tachycardic Heart Sounds: normal S1 and normal S2 Vessels: dorsalis pedis pulses present and radial pulses present Extremities: normal capillary refill Gastrointestinal (Abdomen): normal bowel sounds, soft, nontender, no hepatosplenomegaly Skin: normal turgor Psychiatric: Orientation: + not alert PG Care Time/CCT Total # of Minutes Spent Total Time Spent with Patient: Total time spent is greater than 50% in coordination of care (as documented) at patient's floor/unit and/or counseling patient: 35 Coding Level of Care Code 49842 Subseq Hosp Care Lvl 3 Diagnoses Goals of care, counseling/discussion Z71.89 Acute hypoxemic respiratory failure J96.01 Cancer related pain G89.3 Aspiration pneumonia J69.0 Altered mental status R41.82 Altered mental status type: unspecified Time Spent (min) 35 Time Spent Midlevel Total time spent 35 minutes with > 50% of that time spent assessing the patient and symptom management with IDT (1) Altered mental status Altered mental status type: unspecified Qualified Code(s): R41.82 - Altered mental status, unspecified
--- NOTE | 2019-11-05 22:43 | Death Pronouncement Note ---
Date of Service November 05, 2019 Pronouncement Note Admission Date Admission Date: October 29, 2019 Date and Time of Date of : 11/05/19 Time of : 20:20 Contributing Factors (1) Goals of care, counseling/discussion: (2) Acute hypoxemic respiratory failure: (3) Cancer related pain: (4) Aspiration pneumonia: (5) Altered mental status: Additional Data Confirmation of : no pulse, no respirations, no heart sounds and pupils fixed and dilated Attending physician: Deepak Franco, DO appeals examiner notified?: Yes
--- NOTE | 2019-11-06 08:47 | Discharge Summary ---
Date of Service November 05, 2019 Admission HPI Per Admitting Provider History obtained from patient, chief marketing officer, and records. Patient is a fair historian. 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 Recent confinement last month for UGI B and hypoxemic respiratory failure secondary to possible aspiration pneumonia pneumonia/pulmonary edema. Patient intubated during confinement. Sputum cultures grew ESBL Klebsiella. Patient completed Ertapenem course. Patient MS Yeung changed to oxycodone 3 times daily. As per patient, when he was discharged from hospital he noted worsening achy abdominal discomfort. Nonbloody diarrhea as per siebel crm developer. Patient not doing a lot in alf as per officer. Just waiting for pain meds. Episode of drowsiness impression from pain meds as per officer. In the last week patient noted cough productive of green sputum and worsening shortness of breath. No actual chest pain. Patient unaware of new aspiration events. No unusual fluid retention as per patient. At the ER, patient received Solu-Medrol, Vancomycin, and Imipenem. Medical History as above Surgical History : Appendectomy, nephrectomy, splenectomy Family History : Heart disease Personal/Social history : Few cigarettes a day, past alcohol abuse, skilled nursing inmate Admission Exam Per Admitting Provider GENERAL: Slightly uncomfortable, dysphonic (chronic ), no respiratory distress SKIN: Pallor , warm HEENT: Pale palpebral conjunctivae, no ptosis, dry buccal mucosa, nasal cannula in place NECK : Supple, no tenderness CHEST : Decreased breath sounds, occasional expiratory wheezes, no tenderness HEART : RRR, no obvious murmurs ABDOMEN: Some distention, nontender EXTREMITIES : Minimal LE swelling, no LE tenderness, no other conspicuous deformities noted NEUROLOGIC : Coherent, no facial asymmetry, chronic dysphonia, no other gross focality Principal Diagnosis Acute hypoxemic respiratory failure: Sepsis: Pneumonia: Right Sided Pleural Effusion Metabolic Encephalopathy Diarrhea secondary to lactulose Chronic systolic heart failure (EF 40 to 45%, TTE 2018) CAD/PVD as per records Hypertension hx PAF RCCA status post surgery Chronic pain Chronic anemia Alcoholic cirrhosis MALT lymphoma/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 as per records Past alcohol abuse tobacco abuse Discharge Exam Discharge Data Allergies Allergy/AdvReac Type Severity Reaction Status Date / Time lisinopril Allergy Severe Unknown Verified 10/29/19 18:32 YONNY Inhibitors Allergy Intermediate LIPS SWELL Verified 10/29/19 18:32 Cipro Allergy Mild PER RECORD Verified 09/19/17 13:41 ciprofloxacin Allergy Mild Mild rash Verified 09/16/19 13:57 Consultations 10/29/19 20:33 ED Decision to Admit Stat 10/30/19 01:15 Consult Pulmonology Routine 11/02/19 10:30 Consult Palliative Care Routine Ordered Studies 10/29/19 18:50 CT angio chest PE protocol Stat 10/29/19 22:16 CT abd pelvis wo con Urgent 11/01/19 10:57 US point of care ultrasound Urgent 11/01/19 21:20 CT chest wo con Urgent Current Diagnoses Sepsis, unspecified organism (10/29/19) Neoplasm related pain (acute) (chronic) (10/29/19) Pneumonia, unspecified organism (10/29/19) Pneumonitis due to inhalation of food and vomit (10/29/19) Pleural effusion, not elsewhere classified (10/29/19) Acute respiratory failure with hypoxia (10/29/19) Altered mental status, unspecified (10/29/19) Severe sepsis without septic shock (10/29/19) Other specified counseling (10/29/19) Allergies lisinopril Allergy (Severe, Verified 10/29/19 18:32) Unknown YONNY Inhibitors Allergy (Intermediate, Verified 10/29/19 18:32) LIPS SWELL Cipro Allergy (Mild, Verified 09/19/17 13:41) PER RECORD ciprofloxacin Allergy (Mild, Verified 09/16/19 13:57) Mild rash Height/Weight/Isolation Height 5 ft 11 in Weight 63.2 kg Isolation Type Contact Precautions Chemistry 11/05/19 06:13 Sodium 140 Potassium 3.6 Chloride 108 H Carbon Dioxide 22 Anion Gap 10.0 BUN 30 H D Creatinine 1.96 H D Glucose 50 L* Microbiology 10/29/19 20:00 Blood Aerobic Blood Culture - Final No growth in Aerobic bottle after 5 days. 10/29/19 20:00 Blood Anaerobic Blood Culture - Final 10/29/19 18:47 Blood Aerobic Blood Culture - Final No growth in Aerobic bottle after 5 days. 10/29/19 18:47 Blood Anaerobic Blood Culture - Final No growth in Anaerobic bottle after 5 days. Hospital Course (1) Goals of care, counseling/discussion: (2) Acute hypoxemic respiratory failure: (3) Cancer related pain: (4) Aspiration pneumonia: (5) Altered mental status: (1) Acute hypoxemic respiratory failure: (2) Sepsis: (3) Pneumonia: (4) Pleural effusion: 69-year-old male, inmate of correctional facility, with history of MALT lymphoma, on chronic pain medications CAD, proximal A. fib, hypertension, admitted for acute hypoxic respiratory failure. Acute hypoxic respiratory failure Severe sepsis secondary to pneumonia Right-sided pleural effusion Comfort Measures Status --Went into respiratory distress, 11/01/2019 Status post placement of pigtail chest tube 11/01/2019 Pleural fluid analysis positive exudative fluid Weaned off BiPAP after chest tube placement Repeat chest x-ray: Improvement of right pleural effusion and aeration -- given Lasix IV daily, Vanco + Imipenem -- 11/02: worsening respiratory status and mental status CXR worsening right sided effusion Palliative Care consulted transitioned to Comfort Measure status as per discussion with family -- 11/03: transitioned to morphine drip more comfortable continue PRN Medications Right Sided Pleural Effusion -- Exudative based on pleural fluid analysis, likely secondary to parapneumonic effusion -- Management per #1 Metabolic Encephalopathy --Secondary to #1 --Opioids discontinued Gabapentin held Ammonia level within normal limits TSH within normal limits Diarrhea secondary to lactulose Rule out C. 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 Past alcohol abuse tobacco abuse labs DCd comfort measures status only Patient 11/04 Total Time Total Time Spent Total Time Spent (In Minutes): 45 mins Total Time Includes: Examination of the Patient, Discharge Planning, Medication Reconciliation and Communication With Other Providers Discharge Plan Discharge Items Patient Disposition: Discharge Diagnosis: Acute hypoxemic respiratory failure: Sepsis: Pneumonia: Right Sided Pleural Effusion Metabolic Encephalopathy Diarrhea secondary to lactulose Chronic systolic heart failure (EF 40 to 45%, TTE 2018) CAD/PVD as per records Hypertension hx PAF RCCA status post surgery Chronic pain Chronic anemia Alcoholic cirrhosis 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
== END 2019-11-05 22:50 | disposition expired | DRG 871 ==
LOC: ED 18:13 → SUATTDRO 22:29 → 2N 22:29 → 2S 11-01 09:15 → 2N 11-04 10:32